=== PATIENT | male | born 1980 | race Caucasian/White ===

== ENCOUNTER → 2016-12-02 | Outpatient (CLI) | payer OTHER ==
[~2016-12-02] MED LIST: BACT800T5 PO; CYCL10TA PO; ENBR50IN2 SC; FERR325T3 PO; FOSA70TA PO; GABA600T PO; GLUCTAB6 PO; IBUP60TA PO; IRON65TA PO; MELO7.5T7 PO; MOBI15TA PO; NEUR300C PO; PRED10TA PO; TRAM50TA2 PO
--- NOTE | 2016-12-16 00:40 | ECWPNPC ---
PATIENT NAME: FLASH CASTELLANOS : 1980 GENDER: MALE VISIT DATE: 12/02/2016 DISCHARGE DATE: 12/02/16 1437 VISIT LOCKED DATE TIME: PHYSICIAN: NORIS SALINAS RESOURCE: NORIS SALINAS REASON FOR APPOINTMENT 1. CHRONIC PAIN HISTORY OF PRESENT ILLNESS HISTORY OF PRESENT ILLNESS: PAIN THE PATIENT DESCRIBES THE PAIN... FALL RISK SCREENING: SCREENING :NO FALLS IN THE PAST YEAR TODAY'S VISIT: NOTES: RATES PAIN 6/10. NOTES ALL JOINTSARE HURTING ESPECIALLY THE FEET, LEFT GREATER THAN RIGHT. HAS MUSCLE PAIN AND WEAKNESS LEFT BICEPS. HAD FALL OUT OF TUB - NOW WITH PAIN IN BACK/TAILBONE AND LEFT GROIN. DESCRIBES THE PAIN CONSTANT, BURNING, SHARP AND STABBING, SORE AND SHOOTING.. CURRENT MEDICATIONS TAKING PREDNISONE 10 MG TABLET 1 TABLET WITH FOOD OR MILK ORALLY TWICE A DAY TAKING ENBREL 50 MG/ML SOLUTION 1 ML SUBCUTANEOUS WEEKLY TAKING IRON (FERROUS GLUCONATE) 325 MG TABLET ORALLY NOT-TAKING CYCLOBENZAPRINE HCL 10 MG TABLET 1 TABLET ORALLY ONCE DAILY AT BEDTIME NOT-TAKING ETODOLAC 400 MG TABLET 1 TABLET ORALLY TWICE A DAY NOT-TAKING TRAMADOL HCL 50 MG TABLET 1-2 TABS ORALLY EVERY 6 HRS PRN PAIN MDD=4 NOT-TAKING MOBIC 15 MG TABLET 1 TABLET ORALLY ONCE A DAY NOT-TAKING GLUCOSAMINE CHONDROITIN ADV TABLET ORALLY DAILY NOT-TAKING GABAPENTIN 600 MG TABLET 1 TABLET ORALLY MEDICATION LIST REVIEWED AND RECONCILED WITH THE PATIENT PAST MEDICAL HISTORY RA PSORIATIC ARTHITIS ALLERGIES N.K.D.A. SURGICAL HISTORY RIGHT WRIST FUSION AND TENDON TRASFER 2016 LEFT HIP 2007 HOSPITALIZATION/MAJOR DIAGNOSTIC PROCEDURE CELLULITIS ABDOMEN 2014 REVIEW OF SYSTEMS REVIEWED BY: PROVIDER: NORIS SALINAS MAILING JOGGER . CONSTITUTIONAL: ANY CHANGE IN YOUR MEDICAL CONDITION? YES, ADL'S ARE DIMINISHING&NBSP;. CHILLS &NBSP;&NBSP; NO&NBSP;. FEVER &NBSP;&NBSP; NO&NBSP;. INFECTION: DO YOU HAVE NEW INFECTIONS? NO . DO YOU HAVE HISTORY OF MRSA? NO . MUSCULOSKELETAL: ANY NEW PATTERNS OF PAIN OR NUMBNESS? YES, INCREASED INTENSITY, LIMITED ROM . GASTROENTEROLOGY: ANY NEW CHANGE IN BOWEL CONTROL? NO . GENITOURINARY: ANY NEW CHANGE IN BLADDER CONTROL? NO . IS THERE A CHANCE YOU COULD BE ? NO . HEMATOLOGY/LYMPH: DO YOU TAKE ANY BLOOD THINNERS? (FOR EXAMPLE- COUMADIN, PLAVIX, AGGRENOX, PLATEL, PRADAXA, OR XARELTO) NO . WHEN WAS YOUR LAST DOSE? DATE: TIME: . NEUROLOGY: HAVE YOU FALLEN IN THE PAST 6 MONTHS? YES, PT STATES HE FELL IN THE TUB, PT DENIES MAJOR INJURIES REQIRING MEDICAL ATTENTION . ANY NEW EXTREMITY NUMBNESS OR WEAKNESS? NO . CARDIOLOGY: DO YOU HAVE A PACEMAKER OR DEFIBRILLATOR? NO . RESPIRATORY: HAVE YOU BEEN SICK IN THE PAST WEEK? NO . FEVER NO . FLU LIKE SYMPTOMS? NO . COUGH NO . INTEGUMENTARY: DO YOU HAVE ANY RASHES OR OPEN SORES? NO . ALLERGIC/IMMUNO: ARE YOU ALLERGIC TO SHELLFISH OR IV DYE? NO . ANY NEW ALLERGIES? NO . PSYCHIATRIC: DO YOU HAVE THOUGHTS OF HURTING YOURSELF OR SOMEONE ELSE? NO . ARE YOU ABUSED, NEGLECTED, OR IN AN UNSAFE ENVIRONMENT? NO . ENDOCRINOLOGY: ARE YOU DIABETIC? NO . OTHER: DO YOU NEED ANY PRESCRIPTIONS? NO . IF YES, PLEASE LIST: ____ . ANY NEW PROBLEMS WITH YOUR MEDICATIONS? NO . WHEN DID YOU LAST EAT? ____ . WHEN DID YOU LAST DRINK? ____ . WHAT DID YOU LAST DRINK? ____ . NAME OF PERSON DRIVING YOU HOME? ____ . DO YOU HAVE ANY OTHER QUESTIONS OR CONCERNS NO . SKIN: DO YOU HAVE ANY RASHES OR OPEN SORES? WAS NOT ABLE TO GET ENBREL FOR SEVERAL MONTHS - PSORIASIS FLARED BADLY AND JOINT PAIN FLARED. . VITAL SIGNS WT 193 LBS, HT 71 IN, BMI 26.92 INDEX, BP 138/91 MM HG, HR 74 /MIN, RR 16 /MIN, TEMP 98.6 F, OXYGEN SAT % 95, REVIEWED BY: EM. EXAMINATION GENERAL EXAMINATION: PSYCHALERT , ORIENTED X 3 , APPROPRIATE MOOD AND AFFECT . LUNGS:CLEAR TO AUSCULTATION BILATERALLY. HEART:HEART RATE REGULAR. MUSCULOSKELETAL:GENERALIZED JOINT PAIN WITH PALPATION AT WRISTS, ELBOWS, SHOULDERS AND KNEES. LEFT ELBOW WITH SEVERE CREPITUS. UNABLE TO EXTEND ARM GREATER THAN 120 DEGREES. BILATERAL EDEMA AND TENDERNESSS TO ANKLES. POSTURE STOOPED, GAIT ANTALGIC. LEFT BICEPS MUSCLE TENDER, SOFT, UNABLE TO CONTRACT.. ASSESSMENTS JOINT PAIN - M25.50 (PRIMARY) JOINT PAIN OF ANKLE AND FOOT - M25.579 RHEUMATOID ARTHRITIS - M06.9 TREATMENT JOINT PAIN REFILL TRAMADOL HCL TABLET, 50 MG, 1-2 TABS, ORALLY, EVERY 6 HRS PRN PAIN MDD=4, 30 DAY(S), 120, REFILLS 2 START NORCO TABLET, 5-325 MG, 1 TABLET NEEDED, ORALLY, DAILY PRN PAIN MDD=1, 30 DAY(S), 20, REFILLS 0 REFILL GABAPENTIN TABLET, 600 MG, 1 TABLET, ORALLY, BID, 30 DAY(S), 60 TABLET, REFILLS 2 NOTES: RESTART MEDS. CLINICAL NOTES: ISTOP REGISTRY REVIEWED AND DEMNOSTRATES COMPLLIANCE. REFERRAL TO:[facility] REASON:RUPTURED LEFT BICEPS TENDON, LOSS OF LEFT SHOULDER ROM PROCEDURE CODES FA211 ESTABILISHED PATIENT [facility] CHARGE DISPOSITION & COMMUNICATION FOLLOW UP 2 MONTHS (REASON: JOINT PAIN) ELECTRONICALLY SIGNED BY DONALD SWAIN ON 12/15/2016 AT 08:46 AM EDT DISCLAIMER : THIS IS A VISIT SUMMARY EXTRACTED FROM THE [employer] CHART. IT IS NOT A COPY OF THE [employer] PROGRESS NOTE. MADIHA
== END ==
LOC: M PAIN 13:15
PROVIDERS: ATTEND Nurse Practitioner Family
DX: M25.579 Pain in unspecified ankle and joints of unspecified foot (principal); M06.9 Rheumatoid arthritis, unspecified; G89.29 Other chronic pain; L40.9 Psoriasis, unspecified; Z79.899 Other long term (current) drug therapy

== ENCOUNTER 2017-03-23 06:40 | Emergency (ER) | payer OTHER ==
[~2017-03-23] VITALS: Ht 180.3 cm; Wt 86.4 kg
[2017-03-23] MEDS ORDERED: ENBR50IN2 SC (06:48)
[2017-03-23] MEDS ORDERED: TRAM50TA2 PO (06:48)
[2017-03-23] MEDS ORDERED: ONDANSETRON 4MG/2ML VIAL (J2405) IV ONE (07:30)
[2017-03-23 07:47] LABS: MEAN CORPUSCULAR HGB CONC 35.1 g/dl (32.0-36.5); MEAN CORPUSCULAR VOLUME 99.7 fl (80.0-96.0); PLATELET COUNT, AUTOMATED 400 10^3/uL (150-450); RED CELL DISTRIBUTION WIDTH 16.1 % (11.5-14.5)
[2017-03-23 07:48] LABS: POSITIVE DIFF POS FLAG; WHITE BLOOD COUNT 13.7 10^3/uL (4.0-10.0)
[2017-03-23 07:49] LABS: ADD MANUAL DIFFER YES; DIFF SLIDE NUMBER 121
[2017-03-23 08:15] LABS: ANION GAP 14 MEQ/L (8-16); BLOOD UREA NITROGEN 10 MG/DL (7-18); CALCIUM LEVEL 9.2 MG/DL (8.5-10.1); CARBON DIOXIDE LEVEL 23 MEQ/L (21-32); CHLORIDE LEVEL 101 MEQ/L (98-107); CREATININE FOR GFR 0.77 MG/DL (0.70-1.30); GLOMERULAR FILTRATION RATE > 60.0 (>60); GLUCOSE, FASTING 121 MG/DL (70-105); POTASSIUM SERUM 3.1 MEQ/L (3.5-5.1); SODIUM LEVEL 138 MEQ/L (136-145)
[2017-03-23 08:16] LABS: EOSINOPHILS 1 % (0-5)
[2017-03-23 08:17] LABS: ANISOCYTOSIS 1+
[2017-03-23] MEDS ORDERED: METOCLOPRAMIDE INJ 10MG/2ML VIAL (J2765) IV ONE (08:30)
[2017-03-23] MEDS ORDERED: KCL 10MEQ IN 100ML SWI (KRUN) 10 MEQ in APPROPRIATE DILUENT 1 EA IV ONE ×2 (08:30)
[2017-03-23] MEDS ORDERED: NS 1,000 ML IV ONE (10:45)
[2017-03-23] MEDS ORDERED: MORPHINE 4 MG/ML 1ML SYRINGE IV ONE (10:45)
[2017-03-23] MEDS ORDERED: ZOFR4TAB3 PO (12:35)
[2017-03-23 12:44] VITALS: BP 159/87
== END 2017-03-23 12:50 | disposition home or self-care (01) ==
LOC: M ED 06:40
DX: A08.4 Viral intestinal infection, unspecified (principal); E86.0 Dehydration; E87.6 Hypokalemia
CPT/HCPCS: 80048; 85025; 87507; 96365; 96366; 96375; 99284; J2405; J2765

== ENCOUNTER → 2017-05-26 | Outpatient (CLI) | payer OTHER | LOC: M PAIN 14:00 | DX: M06.9 Rheumatoid arthritis, unspecified (principal); M25.579 Pain in unspecified ankle and joints of unspecified foot; L40.52 Psoriatic arthritis mutilans; Z79.899 Other long term (current) drug therapy | CPT/HCPCS: G0463 ==

== ENCOUNTER 2017-12-16 12:02 | Inpatient (IN) | payer OTHER ==
[2017-12-16] MEDS: ONDANSETRON 4MG/2ML VIAL (J2405) IV (12:54)
[2017-12-16] MEDS: NS 1,000 ML IV ×2 (12:54→15:08)
[2017-12-16 13:05] LABS: BASO # 0.1 10^3/uL (0.0-0.2); BASO % 0.2 % (0.0-1.0); EOS # 0.2 10^3/uL (0.0-0.50); EOS % 1.1 % (0.0-3.0); HEMATOCRIT 29.4 % (42.0-52.0); HEMOGLOBIN 9.9 g/dl (13.5-17.5); IMMATURE GRANULOCYTE % 0.7 % (0-3.0); LYMPH # 4.1 10^3/uL (1.5-4.5); LYMPH % 19.6 % (24.0-44.0); MEAN CORPUSCULAR HEMOGLOBIN 34.6 pg (27.0-33.0); MEAN CORPUSCULAR HGB CONC 33.7 g/dl (32.0-36.5); MEAN CORPUSCULAR VOLUME 102.8 fl (80.0-96.0); MONO # 1.6 10^3/uL (0.0-0.8); MONO % 7.5 % (0.0-5.0); NEUTROPHILS # 14.7 10^3/uL (1.8-7.7); NEUTROPHILS % 70.9 % (36.0-66.0); PLATELET COUNT, AUTOMATED 417 10^3/uL (150-450); RED BLOOD COUNT 2.86 10^6/uL (4.30-6.10); RED CELL DISTRIBUTION WIDTH 16.6 % (11.5-14.5); WHITE BLOOD COUNT 20.8 10^3/uL (4.0-10.0)
[2017-12-16 13:30] LABS: ANION GAP 9 MEQ/L (8-16); BLOOD UREA NITROGEN 16 MG/DL (7-18); CALCIUM LEVEL 9.2 MG/DL (8.5-10.1); CARBON DIOXIDE LEVEL 25 MEQ/L (21-32); CHLORIDE LEVEL 102 MEQ/L (98-107); CREATININE FOR GFR 0.74 MG/DL (0.70-1.30); GLOMERULAR FILTRATION RATE > 60.0 (>60); GLUCOSE, FASTING 116 MG/DL (70-100); POTASSIUM SERUM 3.6 MEQ/L (3.5-5.1); SODIUM LEVEL 136 MEQ/L (136-145)
[2017-12-16 13:34] LABS: LACTIC ACID SEPSIS PROTOCOL 1.5 MMOL/L (0.4-2.0)
[2017-12-16 13:37] LABS: INFLUENZA A AMPLIFICATION NEGATIVE (NEGATIVE); INFLUENZA B AMPLIFICATION NEGATIVE (NEGATIVE)
[2017-12-16] MEDS: ACETAMINOPHEN 325 MG TAB PO (14:16)
[2017-12-16] MEDS: cefTRIAXone SOD 1 GM in D5W MINI-BAG PLUS 50 ML IV (14:16)
[2017-12-16] MEDS: AZITHROMYCIN INJ 500 MG, VIAL MATE ADAPTER 1 EACH in D5W 250 ML IV (15:03)
[2017-12-16] MEDS ORDERED: NS 1,000 ML IV (16:00)
[2017-12-16] MEDS ORDERED: BENZONATATE 100 MG CAP PO (16:00)
[2017-12-16] MEDS: PANTOPRAZOLE 40MG INJ (PROTONIX) (C9113) IV (19:09)
[2017-12-16] MEDS: ACETAMINOPHEN TAB 650MG DOSE (2X325MG) PO (19:10)
[2017-12-16] MEDS: KCL 20MEQ in NS 1000ML 1,000 ML IV (19:10)
[2017-12-16] MEDS: HYDROCORTISONE 100 MG/2 ML VIAL (J1720) IV (19:10)
[2017-12-16] MEDS: SENOKOT S TAB PO (21:38)
[2017-12-16] MEDS: guaiFENesin ER 600 MG TAB PO (21:38)
[2017-12-17] MEDS: CEFEPIME HCL 2 GM in D5W MINI-BAG PLUS 50 ML IV ×2 (02:35→16:30)
[2017-12-17] MEDS: KCL 20MEQ in NS 1000ML 1,000 ML IV ×3 (04:05→22:31)
[2017-12-17] MEDS: HYDROCORTISONE 100 MG/2 ML VIAL (J1720) IV ×2 (05:48→18:24)
[2017-12-17 06:11] LABS: BASO # 0.1 10^3/uL (0.0-0.2); BASO % 0.2 % (0.0-1.0); EOS # 0.1 10^3/uL (0.0-0.50); EOS % 0.4 % (0.0-3.0); HEMATOCRIT 26.5 % (42.0-52.0); HEMOGLOBIN 8.7 g/dl (13.5-17.5); IMMATURE GRANULOCYTE % 0.7 % (0-3.0); LYMPH # 4.3 10^3/uL (1.5-4.5); LYMPH % 21.2 % (24.0-44.0); MEAN CORPUSCULAR HEMOGLOBIN 33.9 pg (27.0-33.0); MEAN CORPUSCULAR HGB CONC 32.8 g/dl (32.0-36.5); MEAN CORPUSCULAR VOLUME 103.1 fl (80.0-96.0); MONO # 1.5 10^3/uL (0.0-0.8); MONO % 7.3 % (0.0-5.0); NEUTROPHILS # 14.2 10^3/uL (1.8-7.7); NEUTROPHILS % 70.2 % (36.0-66.0); PLATELET COUNT, AUTOMATED 365 10^3/uL (150-450); RED BLOOD COUNT 2.57 10^6/uL (4.30-6.10); RED CELL DISTRIBUTION WIDTH 16.6 % (11.5-14.5); WHITE BLOOD COUNT 20.3 10^3/uL (4.0-10.0)
[2017-12-17 06:38] LABS: ALBUMIN/GLOBULIN RATIO 0.63 (1.00-1.93); ALKALINE PHOSPHATASE 127 U/L (45-117); ALT/SGPT 59 U/L (12-78); ANION GAP 8 MEQ/L (8-16); AST/SGOT 31 U/L (7-37); BILIRUBIN,TOTAL 0.4 MG/DL (0.2-1.0); BLOOD UREA NITROGEN 9 MG/DL (7-18); CALCIUM LEVEL 8.7 MG/DL (8.5-10.1); CARBON DIOXIDE LEVEL 24 MEQ/L (21-32); CHLORIDE LEVEL 106 MEQ/L (98-107); CREATININE FOR GFR 0.61 MG/DL (0.70-1.30); GLOMERULAR FILTRATION RATE > 60.0 (>60); GLUCOSE, FASTING 97 MG/DL (70-100); MAGNESIUM LEVEL 2.1 MG/DL (1.8-2.4); POTASSIUM SERUM 3.8 MEQ/L (3.5-5.1); SODIUM LEVEL 138 MEQ/L (136-145); TOTAL PROTEIN 7.8 GM/DL (6.4-8.2)
[2017-12-17] MEDS: SENOKOT S TAB PO ×2 (07:59→22:30)
[2017-12-17] MEDS: PANTOPRAZOLE 40MG INJ (PROTONIX) (C9113) IV (08:00)
[2017-12-17] MEDS: guaiFENesin ER 600 MG TAB PO ×2 (08:00→22:30)
[2017-12-17] MEDS: ENOXAPARIN 40 MG/0.4 ML SYRINGE (J1650) SC (08:00)
[2017-12-17] MEDS: INFLUENZA QUADRIVALENT PF VACCINE 0.5ML SYRINGE (90686) IM (08:02)
[2017-12-17] MEDS: AZITHROMYCIN INJ 500 MG, VIAL MATE ADAPTER 1 EACH in D5W 250 ML IV (15:04)
[2017-12-17] MEDS: ONDANSETRON 4MG/2ML VIAL (J2405) IV (19:08)
[2017-12-18] MEDS: CEFEPIME HCL 2 GM in D5W MINI-BAG PLUS 50 ML IV (02:36)
[2017-12-18 05:57] LABS: BASO % 0.3 % (0.0-1.0); EOS # 0.2 10^3/uL (0.0-0.50); EOS % 1.6 % (0.0-3.0); HEMATOCRIT 24.7 % (42.0-52.0); HEMOGLOBIN 8.2 g/dl (13.5-17.5); IMMATURE GRANULOCYTE % 0.7 % (0-3.0); LYMPH # 2.6 10^3/uL (1.5-4.5); LYMPH % 23.7 % (24.0-44.0); MEAN CORPUSCULAR HEMOGLOBIN 34.9 pg (27.0-33.0); MEAN CORPUSCULAR HGB CONC 33.2 g/dl (32.0-36.5); MEAN CORPUSCULAR VOLUME 105.1 fl (80.0-96.0); MONO # 0.8 10^3/uL (0.0-0.8); MONO % 7.7 % (0.0-5.0); NEUTROPHILS # 7.2 10^3/uL (1.8-7.7); PLATELET COUNT, AUTOMATED 332 10^3/uL (150-450); RED BLOOD COUNT 2.35 10^6/uL (4.30-6.10); RED CELL DISTRIBUTION WIDTH 16.5 % (11.5-14.5); WHITE BLOOD COUNT 10.9 10^3/uL (4.0-10.0)
[2017-12-18 06:31] LABS: ALBUMIN 2.7 GM/DL (3.2-5.2); ALBUMIN/GLOBULIN RATIO 0.63 (1.00-1.93); ALKALINE PHOSPHATASE 110 U/L (45-117); ALT/SGPT 50 U/L (12-78); ANION GAP 7 MEQ/L (8-16); AST/SGOT 23 U/L (7-37); BILIRUBIN,TOTAL 0.3 MG/DL (0.2-1.0); BLOOD UREA NITROGEN 9 MG/DL (7-18); CALCIUM LEVEL 8.4 MG/DL (8.5-10.1); CARBON DIOXIDE LEVEL 24 MEQ/L (21-32); CHLORIDE LEVEL 107 MEQ/L (98-107); CREATININE FOR GFR 0.59 MG/DL (0.70-1.30); GLOMERULAR FILTRATION RATE > 60.0 (>60); GLUCOSE, FASTING 83 MG/DL (70-100); POTASSIUM SERUM 3.8 MEQ/L (3.5-5.1); SODIUM LEVEL 138 MEQ/L (136-145)
[2017-12-18] MEDS: HYDROCORTISONE 100 MG/2 ML VIAL (J1720) IV (07:07)
[2017-12-18] MEDS: KCL 20MEQ in NS 1000ML 1,000 ML IV (07:10)
[2017-12-18] MEDS: SENOKOT S TAB PO ×2 (07:52→21:05)
[2017-12-18] MEDS: PANTOPRAZOLE 40MG INJ (PROTONIX) (C9113) IV (07:52)
[2017-12-18] MEDS: ENOXAPARIN 40 MG/0.4 ML SYRINGE (J1650) SC (07:52)
[2017-12-18] MEDS: guaiFENesin ER 600 MG TAB PO ×2 (07:52→21:04)
[2017-12-18] MEDS: AZITHROMYCIN 250 MG TAB PO (15:17)
[2017-12-18] MEDS: CEFDINIR 300 MG CAP (OMNICEF) PO ×2 (15:17→21:04)
[2017-12-18] MEDS: predniSONE 10 MG TAB PO (18:12)
[2017-12-19] MEDS: predniSONE 10 MG TAB PO (05:32)
[2017-12-19 06:07] LABS: BASO % 0.3 % (0.0-1.0); EOS # 0.3 10^3/uL (0.0-0.50); EOS % 2.9 % (0.0-3.0); HEMATOCRIT 26.5 % (42.0-52.0); HEMOGLOBIN 8.8 g/dl (13.5-17.5); IMMATURE GRANULOCYTE % 0.9 % (0-3.0); LYMPH # 2.9 10^3/uL (1.5-4.5); LYMPH % 27.3 % (24.0-44.0); MEAN CORPUSCULAR HEMOGLOBIN 34.1 pg (27.0-33.0); MEAN CORPUSCULAR HGB CONC 33.2 g/dl (32.0-36.5); MEAN CORPUSCULAR VOLUME 102.7 fl (80.0-96.0); MONO % 9.2 % (0.0-5.0); NEUTROPHILS # 6.2 10^3/uL (1.8-7.7); NEUTROPHILS % 59.4 % (36.0-66.0); PLATELET COUNT, AUTOMATED 393 10^3/uL (150-450); RED BLOOD COUNT 2.58 10^6/uL (4.30-6.10); RED CELL DISTRIBUTION WIDTH 16.3 % (11.5-14.5); WHITE BLOOD COUNT 10.5 10^3/uL (4.0-10.0)
[2017-12-19 06:28] LABS: ALBUMIN 3.1 GM/DL (3.2-5.2); ALBUMIN/GLOBULIN RATIO 0.84 (1.00-1.93); ALKALINE PHOSPHATASE 115 U/L (45-117); ALT/SGPT 48 U/L (12-78); ANION GAP 9 MEQ/L (8-16); AST/SGOT 19 U/L (7-37); BILIRUBIN,TOTAL 0.3 MG/DL (0.2-1.0); BLOOD UREA NITROGEN 9 MG/DL (7-18); CALCIUM LEVEL 8.7 MG/DL (8.5-10.1); CARBON DIOXIDE LEVEL 26 MEQ/L (21-32); CHLORIDE LEVEL 104 MEQ/L (98-107); CREATININE FOR GFR 0.53 MG/DL (0.70-1.30); GLOMERULAR FILTRATION RATE > 60.0 (>60); GLUCOSE, FASTING 82 MG/DL (70-100); MAGNESIUM LEVEL 2.2 MG/DL (1.8-2.4); POTASSIUM SERUM 4.1 MEQ/L (3.5-5.1); SODIUM LEVEL 139 MEQ/L (136-145); TOTAL PROTEIN 6.8 GM/DL (6.4-8.2)
[2017-12-19] MEDS: PANTOPRAZOLE 40MG INJ (PROTONIX) (C9113) IV (08:24)
[2017-12-19] MEDS: guaiFENesin ER 600 MG TAB PO (08:24)
[2017-12-19] MEDS: CEFDINIR 300 MG CAP (OMNICEF) PO (08:24)
[2017-12-19] MEDS: SENOKOT S TAB PO (08:24)
[2017-12-19] MEDS: AZITHROMYCIN 250 MG TAB PO (08:24)
[2017-12-19] MEDS: ENOXAPARIN 40 MG/0.4 ML SYRINGE (J1650) SC (08:25)
== END 2017-12-19 09:51 | disposition home or self-care (01) | DRG 139 ==
LOC: M ED 12:02 → M ED INP 14:59 → M PCU 18:11
DX: J18.9 Pneumonia, unspecified organism (principal); M06.9 Rheumatoid arthritis, unspecified; R11.2 Nausea with vomiting, unspecified; Z96.649 Presence of unspecified artificial hip joint; Z79.52 Long term (current) use of systemic steroids

== ENCOUNTER 2017-12-21 22:48 | Emergency (ER) | payer OTHER ==
[2017-12-21] MEDS: NS 1,000 ML IV (23:30)
[2017-12-21] MEDS: ONDANSETRON 4MG/2ML VIAL (J2405) IV (23:30)
[2017-12-22 00:23] LABS: BASO # 0.1 10^3/uL (0.0-0.2); BASO % 0.5 % (0.0-1.0); EOS # 0.1 10^3/uL (0.0-0.50); EOS % 1.1 % (0.0-3.0); HEMOGLOBIN 9.3 g/dl (13.5-17.5); IMMATURE GRANULOCYTE % 1.9 % (0-3.0); LYMPH # 3.8 10^3/uL (1.5-4.5); LYMPH % 33.5 % (24.0-44.0); MEAN CORPUSCULAR HEMOGLOBIN 33.2 pg (27.0-33.0); MEAN CORPUSCULAR HGB CONC 33.2 g/dl (32.0-36.5); MONO % 8.9 % (0.0-5.0); NEUTROPHILS # 6.2 10^3/uL (1.8-7.7); NEUTROPHILS % 54.1 % (36.0-66.0); PLATELET COUNT, AUTOMATED 510 10^3/uL (150-450); RED CELL DISTRIBUTION WIDTH 15.7 % (11.5-14.5); WHITE BLOOD COUNT 11.4 10^3/uL (4.0-10.0)
[2017-12-22] MEDS: METOCLOPRAMIDE INJ 10MG/2ML VIAL (J2765) IV (00:26)
[2017-12-22 00:31] LABS: ALBUMIN 3.5 GM/DL (3.2-5.2); ALKALINE PHOSPHATASE 120 U/L (45-117); ALT/SGPT 49 U/L (12-78); ANION GAP 12 MEQ/L (8-16); AST/SGOT 32 U/L (7-37); BILIRUBIN,DIRECT 0.1 MG/DL (0.0-0.2); BILIRUBIN,TOTAL 0.6 MG/DL (0.2-1.0); BLOOD UREA NITROGEN 14 MG/DL (7-18); CALCIUM LEVEL 8.9 MG/DL (8.5-10.1); CARBON DIOXIDE LEVEL 23 MEQ/L (21-32); CHLORIDE LEVEL 103 MEQ/L (98-107); CREATININE FOR GFR 0.65 MG/DL (0.70-1.30); GLOMERULAR FILTRATION RATE > 60.0 (>60); GLUCOSE, FASTING 109 MG/DL (70-100); LIPASE 179 U/L (73-393); POTASSIUM SERUM 3.3 MEQ/L (3.5-5.1); SODIUM LEVEL 138 MEQ/L (136-145); TOTAL PROTEIN 7.9 GM/DL (6.4-8.2)
[2017-12-22] MEDS ORDERED: METOCLOPRAMIDE 10 MG TAB As Ordered (01:40)
[2017-12-22] MEDS: METOCLOPRAMIDE 10 MG TAB PO (01:44)
== END 2017-12-22 02:21 | disposition home or self-care (01) ==
LOC: M ED 22:48
DX: R11.2 Nausea with vomiting, unspecified (principal); K21.9 Gastro-esophageal reflux disease without esophagitis
CPT/HCPCS: J2405

== ENCOUNTER → 2018-01-26 | Outpatient (CLI) | payer OTHER | LOC: M PT 13:01 | DX: Z74.09 Other reduced mobility (principal); Z96.642 Presence of left artificial hip joint; M06.9 Rheumatoid arthritis, unspecified; L40.50 Arthropathic psoriasis, unspecified; R53.82 Chronic fatigue, unspecified | CPT/HCPCS: 97162 ==

== ENCOUNTER → 2018-04-08 | Outpatient (REF) | payer OTHER ==
[~2018-04-08] MED LIST changes: +AZIT-12 PO; +CEFD300CAP PO; -GABA600T PO; +GABA600T4 PO; +PRED10TA2 PO; +REGL10TA6 PO; +ZOFR4TAB14 PO
[2018-04-08 18:22] LABS: ALBUMIN 3.8 GM/DL (3.2-5.2); ALT/SGPT 24 U/L (12-78); BILIRUBIN,TOTAL 0.3 MG/DL (0.2-1.0); BLOOD UREA NITROGEN 18 MG/DL (7-18); C REACTIVE PROTEIN QUANTITATIV < 0.30 MG/DL (0.00-0.30); CALCIUM LEVEL 8.4 MG/DL (8.5-10.1); CARBON DIOXIDE LEVEL 25 MEQ/L (21-32); CHLORIDE LEVEL 105 MEQ/L (98-107); CHOLESTEROL LEVEL 136 MG/DL (<200); CHOLESTEROL RISK RATIO 3.487 (<5); CREATININE FOR GFR 0.62 MG/DL (0.70-1.30); GLOMERULAR FILTRATION RATE > 60.0 (>60); GLUCOSE, FASTING 114 MG/DL (70-100); HDL CHOLESTEROL 39 MG/DL (>40); LDL CHOLESTEROL 44 MG/DL (<100); NON-HDL-C 97 MG/DL; POTASSIUM SERUM 3.4 MEQ/L (3.5-5.1); SODIUM LEVEL 140 MEQ/L (136-145); THYROID STIMULATING HORMONE 0.659 uIU/ML (0.358-3.740); TOTAL 25(OH) VITAMIN D 24.4 NG/ML (30.0-100.0); TRIGLYCERIDES LEVEL 266 MG/DL (<150)
[2018-04-08 18:29] LABS: HEMATOCRIT 28.2 % (42.0-52.0); HEMOGLOBIN 9.3 g/dl (13.5-17.5); MEAN CORPUSCULAR HEMOGLOBIN 35.1 pg (27.0-33.0); MEAN CORPUSCULAR VOLUME 106.4 fl (80.0-96.0); PLATELET COUNT, AUTOMATED 427 10^3/uL (150-450); RED BLOOD COUNT 2.65 10^6/uL (4.30-6.10)
[2018-04-08 18:37] LABS: WHITE BLOOD COUNT 10.6 10^3/uL (4.0-10.0)
[2018-04-08 18:53] LABS: HEMOGLOBIN A1c 5.1 %
[2018-04-08 19:02] LABS: ERYTHROCYTE SEDIMENTATION RATE 37 mm/hr (0-15)
[2018-04-08 19:39] LABS: ATYPICAL LYMPH 15 % (0-5); LYMPHOCYTES 39 % (16-52); MONOCYTES 14 % (0-8); NEUTROPHILS 32 % (35-75); PLATELET ESTIMATE INCREASED (NORMAL)
== END ==
LOC: M LAB REF 16:24
PROVIDERS: ATTEND Nurse Practitioner Adult Health
DX: Z13.9 Encounter for screening, unspecified (principal)

== ENCOUNTER → 2018-04-19 | Outpatient (REF) | payer OTHER ==
[2018-04-19 18:05] LABS: BASO % 0.3 % (0.0-1.0); EOS % 0.1 % (0.0-3.0); HEMATOCRIT 29.6 % (42.0-52.0); HEMOGLOBIN 9.8 g/dl (13.5-17.5); LYMPH # 2.4 10^3/uL (1.5-4.5); LYMPH % 30.2 % (24.0-44.0); MEAN CORPUSCULAR HGB CONC 33.1 g/dl (32.0-36.5); MEAN CORPUSCULAR VOLUME 108.8 fl (80.0-96.0); MONO # 0.7 10^3/uL (0.0-0.8); MONO % 9.2 % (0.0-5.0); NEUTROPHILS # 4.7 10^3/uL (1.8-7.7); NEUTROPHILS % 59.2 % (36.0-66.0); PLATELET COUNT, AUTOMATED 418 10^3/uL (150-450); RED BLOOD COUNT 2.72 10^6/uL (4.30-6.10)
[2018-04-20 17:38] LABS: FOLATE 14.5 NG/ML
== END ==
LOC: M LAB REF 17:37
PROVIDERS: ATTEND Nurse Practitioner Adult Health
DX: Z13.9 Encounter for screening, unspecified (principal)

== ENCOUNTER 2018-07-11 19:41 | Emergency (ER) | payer MEDICARE, MEDICAID ==
[~2018-07-11] VITALS: Ht 180.3 cm; Wt 88.6 kg
[~2018-07-11 19:41] MED LIST changes: +IBUP600T42 PO; -IBUP60TA PO; +PRED-351 PO; -PRED10TA PO
[2018-07-11] MEDS ORDERED: ALENDRONATE (19:49)
[2018-07-11] MEDS ORDERED: Gabapentin (19:49)
[2018-07-11] MEDS ORDERED: IBUP-1022 PO (19:49)
[2018-07-11 21:47] VITALS: BP 130/76
[2018-07-12] MEDS ORDERED: ADACEL/BOOSTRIX VACCINE (DIPHTH/PERTUSS/ACELL/TETANUS)0.5ML SYR (90715) IM ONE (00:15)
[2018-07-12] MEDS ORDERED: NEOSPORIN TOP OINT 15GM TOP SCH (00:57)
[2018-07-12] MEDS ORDERED: BACT2CRE TOP (01:00)
[2018-07-12] MEDS ORDERED: DOXY100C PO (01:01)
== END 2018-07-12 01:23 | disposition home or self-care (01) ==
LOC: M ED 19:41
DX: S81.801A Unspecified open wound, right lower leg, initial encounter (principal); W26.8XXA Contact with other sharp object(s), not elsewhere classified, initial encounter; Y92.098 Other place in other non-institutional residence as the place of occurrence of the external cause; I87.8 Other specified disorders of veins; M06.9 Rheumatoid arthritis, unspecified; Z79.899 Other long term (current) drug therapy; Z79.52 Long term (current) use of systemic steroids; Z79.1 Long term (current) use of non-steroidal anti-inflammatories (NSAID)

== ENCOUNTER → 2018-07-18 | Outpatient (REF) | payer MEDICARE, MEDICAID ==
[~2018-07-18] MED LIST changes: +ALENDRONATE; +BACT2CRE TOP; +DOXY100C PO; +Gabapentin; +IBUP-1022 PO
== END ==
LOC: M LAB REF 16:45
PROVIDERS: ATTEND Family Medicine
DX: R22.41 Localized swelling, mass and lump, right lower limb (principal); S27.331D Laceration of lung, unilateral, subsequent encounter; L03.90 Cellulitis, unspecified

== ENCOUNTER → 2018-07-19 | Outpatient (CLI) | payer MEDICARE, MEDICAID ==
--- NOTE | 2018-07-19 13:57 | REP ---
Right lower extremity deep vein duplex ultrasound: The deep veins demonstrate normal compression, normal Doppler color flow and normal Doppler waveforms with respiration and augmentation from the popliteal vein to the common femoral vein. Impression: There is no deep vein thrombus. There is gautam edema. In the calf area, there is a zone of localized swelling. Electronically Signed by Ag Michaels MD 07/19/2018 01:48 P
== END ==
LOC: M RAD 12:02
PROVIDERS: ATTEND Family Medicine
DX: R22.41 Localized swelling, mass and lump, right lower limb (principal)

== ENCOUNTER 2018-08-29 16:57 | Inpatient (IN) | payer MEDICARE, MEDICAID ==
[~2018-08-29] VITALS: Ht 180.3 cm; Wt 84.6 kg
[2018-08-29] MEDS ORDERED: GABA600T4 PO (17:04)
[2018-08-29 17:33] LABS: EOS % 0.3 % (0.0-3.0); HEMATOCRIT 10.8 % (42.0-52.0); LYMPH # 2.8 10^3/uL (1.5-4.5); MEAN CORPUSCULAR HEMOGLOBIN 38.9 pg (27.0-33.0); MEAN CORPUSCULAR HGB CONC 32.4 g/dl (32.0-36.5); MONO # 0.9 10^3/uL (0.0-0.8); MONO % 14.6 % (0.0-5.0); NEUTROPHILS # 2.3 10^3/uL (1.8-7.7); NEUTROPHILS % 37.6 % (36.0-66.0); PLATELET COUNT, AUTOMATED 320 10^3/uL (150-450)
[2018-08-29 17:59] LABS: HEMOGLOBIN 3.5 g/dl (13.5-17.5)
[2018-08-29 18:12] LABS: D-DIMER QUANT 1057.17 ng/ml (<500)
[2018-08-29 18:13] LABS: BLOOD UREA NITROGEN 13 MG/DL (7-18); CALCIUM LEVEL 8.3 MG/DL (8.5-10.1); CARBON DIOXIDE LEVEL 25 MEQ/L (21-32); CHLORIDE LEVEL 109 MEQ/L (98-107); CPK CREATINE PHOSPHOKINASE 55 U/L (39-308); CREATININE FOR GFR 0.63 MG/DL (0.70-1.30); GLOMERULAR FILTRATION RATE > 60.0 (>60); GLUCOSE, FASTING 93 MG/DL (70-100); MB/CK RELATIVE INDEX 1.82 (< OR =4); POTASSIUM SERUM 3.7 MEQ/L (3.5-5.1); SODIUM LEVEL 141 MEQ/L (136-145); TROPONIN I < 0.02 NG/ML (< 0.10)
[2018-08-29 18:32] LABS: INR 1.11; PROTHROMBIN TIME 14.5 SECONDS (12.1-14.4)
[2018-08-29] MEDS ORDERED: ALEN70TA74 PO (18:48)
--- NOTE | 2018-08-29 18:49 | REP ---
Clinical: Shortness of breath . Comparison: 12/16/2017 . Technique: PA and lateral. Findings: The mediastinum and cardiac silhouette are normal. The lung howard are clear and without acute consolidation, effusion, or pneumothorax. The skeletal structures are intact and normal. Impression: 1. No acute cardiopulmonary process. Electronically Signed by Toby Maurer MD 08/29/2018 06:40 P
[2018-08-29] MEDS ORDERED: FERR325T3 PO (18:50)
[2018-08-29 18:59] LABS: ANISOCYTOSIS 1+; OVALOCYTES 1+; PLATELET ESTIMATE NORMAL (NORMAL); POIKILOCYTOSIS 1+; POLYCHROMASIA 1+
[2018-08-29] MEDS ORDERED: FUROSEMIDE 20 MG/2 ML VIAL (J1940) IV ONE (20:15)
--- NOTE | 2018-08-29 20:30 | HPEPDOC ---
General Date of Admission 08/29/18 Date of Service: August 29, 2018 Chief Complaint The patient is a 38-year-old male admitted with a reason for visit of Shortness Of Breath. Source: Patient, RN/MD, Old records Exam Limitations: No limitations Associated Symptoms: Loss of appetite, Shortness of breath, Weakness History of Present Illness 38 year old male with PMH of Rheumatoid arthritis on chronic prednisone and Etanercept, has chronic leg ulcer for about [address] Monsalve presented today with increasing fatigue and shortness of breath for 1 month which really got bad in the last week to the extent that he would become exhausted after going to the bathroom and coming back. He did not have any cough or wheezing, he did not have any palpitation or any PND. He has been cutting down on his work fo the past month as he has been feeling tired and weak and easily winded with usual activities. Yesterday he went fishing with friends but could not even get out of the truck to go down to the water. He also complains of poor appetie for months. In the ED he was found to have a Hb of 3.5, His guaiac was negative. He is being admitted for symptomatic anemia. Home Medications Scheduled Alendronate Sodium (Alendronate Sodium) 70 Mg Tablet, 70 MG PO 1XWK, (Reported) TUESDAYS Etanercept (Enbrel) 50 Mg/Ml Inj, 50 MG SC 1XWK, (Reported) TUESDAYS Ferrous Sulfate (Ferrous Sulfate) 325 Mg Tablet.dr, 325 MG PO DAILY, (Reported) Gabapentin (Gabapentin) 600 Mg Tablet, 600 MG PO BID, (Reported) Prednisone (Prednisone) 10 Mg Tab, 10 MG PO BID, (Reported) Scheduled PRN Ibuprofen (Ibuprofen) 600 Mg Tablet, 600 MG PO TID PRN for PAIN, (Reported) Allergies Coded Allergies: No Known Allergies (Unverified , 07/11/18) Past Medical History Medical History Rheumatoid arthritis, chronic right leg ulcer Surgical History Left total hip replacement, as well as a tendon repair in his hand. Family History Significant Family History: Hypertension (father), Other (Father stroke, Mother celiac disease) Social History * Smoker: Denies Alcohol: Denies Drugs: marijuana (to help with pain) A-FIB/CHADSVASC A-FIB History Current/History of A-Fib/PAF?: No Review of Systems Constitutional: Reports: Malaise, Weakness, Fatigue; Denies: Chills, Fever, Night Sweats Eyes: Denies: Pain, Vision change ENT: Denies: Head Aches, Ear Pain, Dysphagia Skin: Denies: Rash, Lesions, Breakdown Pulmonary: Reports: Dyspnea; Denies: Cough, Pleuritic Chest Pain Cardiovascular: Denies: Chest Pain, Palpitations, Orthopnea, Paroxysmal Noc. Dyspnea, Edema Gastrointestinal: Denies: Nausea, Vomiting, Abdominal Pain, Diarrhea Genitourinary: Denies: Dysuria, Frequency, Incontinence, Retention Hematologic: Denies: Bruising, Bleeding Excessively Musculoskeletal: Reports: Joint Pain, Muscle Pain Neurological: Reports: Weakness Physical Examination General Exam: Positive: Alert, Cooperative, No Acute Distress Eye Exam: Positive: PERRLA, Conjunctiva & lids normal, EOMI; Negative: Sclera icteric ENT Exam: Positive: Atraumatic, Mucous membr. moist/pink, Pharynx Normal Neck Exam: Positive: Supple; Negative: JVD, thyromegaly Chest Exam: Positive: Clear to auscultation, Normal air movement Heart Exam: Positive: Rate Normal, Regular Rhythm, Normal S1, Normal S2; Negative: Murmurs, Rubs Telemetry: Positive: No significant arrhythmia Abdomen Exam: Positive: Normal bowel sounds, Soft; Negative: Tenderness, Hepatospenomegaly Extremity Exam: Positive: Normal pulses; Negative: Clubbing, Cyanosis, Edema Skin Exam: Positive: Lesion (5cmx 5cm chronic ulcer with clean base on the lateral aspect of right leg middle part with granulation tissue at the bottom. No necrosis or inflammation.) Neuro Exam: Positive: Normal Gait, Normal Speech, Cranial Nerves 3-12 NL, Reflexes 2+ Vital Signs Vital Signs Date Time Temp Pulse Resp B/P (MAP) Pulse Ox O2 Delivery O2 Flow Rate FiO2 08/29/18 19:31 129/65 (86) 08/29/18 19:28 98.9 08/29/18 19:27 97 18 99 Room Air Laboratory Data Labs 24H Laboratory Tests 2 08/29/18 17:23: Immature Granulocyte % (Auto) 1.5, White Blood Count 6.0, Red Blood Count 0.90L, Hemoglobin 3.5*L, Hematocrit 10.8L, Mean Corpuscular Volume 120.0H, Mean Corpuscular Hemoglobin 38.9H, Mean Corpuscular Hemoglobin Concent 32.4, Red Cell Distribution Width 20.7H, Platelet Count 320, Neutrophils (%) (Auto) 37.6, Lymphocytes (%) (Auto) 46.0H, Monocytes (%) (Auto) 14.6H, Eosinophils (%) (Auto) 0.3, Basophils (%) (Auto) 0.0, Neutrophils # (Auto) 2.3, Lymphocytes # (Auto) 2.8, Monocytes # (Auto) 0.9H, Eosinophils # (Auto) 0.0, Basophils # (Auto) 0.0, Nucleated Red Blood Cells % (auto) 0.0, Platelet Estimate NORMAL, Polychromasia 1+, Poikilocytosis 1+, Anisocytosis 1+, Macrocytosis 4+, Ovalocytes 1+, Anion Gap 7L, Glomerular Filtration Rate > 60.0, Blood Urea Nitrogen 13, Creatinine 0.63L, Sodium Level 141, Potassium Level 3.7, Chloride Level 109H, Carbon Dioxide Level 25, Calcium Level 8.3L, Total Creatine Kinase 55, Creatine Kinase MB 1.0, Creatine Kinase MB Relative Index 1.82, Troponin I < 0.02 08/29/18 17:42: Prothrombin Time 14.5H, Prothromb Time International Ratio 1.11, D-Dimer, Quantitative 1057.17H CBC/BMP Laboratory Tests 08/29/18 17:23 Red Blood Count 0.90 L, Mean Corpuscular Volume 120.0 H, Mean Corpuscular Hemoglobin 38.9 H, Mean Corpuscular Hemoglobin Concent 32.4, Red Cell Distribution Width 20.7 H, Neutrophils (%) (Auto) 37.6, Lymphocytes (%) (Auto) 46.0 H, Monocytes (%) (Auto) 14.6 H, Eosinophils (%) (Auto) 0.3, Basophils (%) (Auto) 0.0, Neutrophils # (Auto) 2.3, Lymphocytes # (Auto) 2.8, Monocytes # (Auto) 0.9 H, Eosinophils # (Auto) 0.0, Basophils # (Auto) 0.0, Calcium Level 8.3 L, Total Creatine Kinase 55 Assessment/Plan 38 year old male with PMH of Rheumatoid arthritis on chronic prednisone and Etanercept, has chronic leg ulcer for about [address] Stillerman presented today with increasing fatigue and shortness of breath for 1 month which really got bad in the last week to the extent that he would become exhausted after going to the bathroom and coming back. He did not have any cough or wheezing, he did not have any palpitation or any PND. He has been cutting down on his work fo the past month as he has been feeling tired and weak and easily winded with usual activities. Yesterday he went fishing with friends but could not even get out of the truck to go down to the water. He also complains of poor appetie for months. In the ED he was found to have a Hb of 3.5, His guaiac was negative. He is being admitted for symptomatic anemia. Symptomatic anemia macrocytic Anemia will check vit B12, folate, iron studies, esmer test, ESR, SPEP, peripheral smear. Will check stool for occult blood, guaic negative in ED. 4 units PRC with lasix in between Check HH q 6 hours. Pantoprazole bid. 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 Rheumatoid arthritis continue prednisone DVT prophylaxis ordered. Plan / VTE VTE Prophylaxis Ordered?: Yes CHERRI MATTHEW MD August 29, 2018 20:30
[2018-08-29 20:47] LABS: ALT/SGPT 73 U/L (12-78); BILIRUBIN,DIRECT 0.1 MG/DL (0.0-0.2); BILIRUBIN,TOTAL 0.5 MG/DL (0.2-1.0); ERYTHROCYTE SEDIMENTATION RATE 126 mm/hr (0-15); FERRITIN 527 NG/ML (26-388); IRON (FE) 217 UG/DL (65-175); PERCENT SATURATION 77.5 % (19.7-50.0); TOTAL IRON BINDING CAPACITY 280 UG/DL (250-450); TOTAL PROTEIN 7.1 GM/DL (6.4-8.2)
--- NOTE | 2018-08-29 21:14 | ECGEPIP ---
[facility] - ED Test Date: 2018-08-29 Pat Name: FLASH CASTELLANOS Department: Room: - Gender: Male [employer] Architect: CECELIA : 1980 Requested By: Mercy Espitia Order Number: [id number] Reading MD: Mercy Espitia Measurements Intervals [place] Rate: 102 P: 64 TN: 144 QRS: 23 QRSD: 98 T: 41 QT: 338 QTc: 442 Interpretive Statements SINUS TACHYCARDIA WITH OCCASIONAL SUPRAVENTRICULAR PREMATURE COMPLEXES NONSPECIFIC T-WAVE ABNORMALITY ABNORMAL RHYTHM ECG POSSIBLE PRIOR INFARCT SIMILAR 12/16/17 Electronically Signed on 08-29-2018 21:14:20 EDT by Mercy Espitia
[2018-08-29 21:22] LABS: FOLATE 14.1 NG/ML (>5.4); VITAMIN B12 LEVEL 375 PG/ML (247-911)
[2018-08-29 21:40] VITALS: BP 134/80
[2018-08-29 21:55] VITALS: BP 139/81
[2018-08-29 22:55] VITALS: BP 128/81
[2018-08-29] MEDS: DOCUSATE SODIUM 100 MG CAP PO SCH (23:04)
[2018-08-29] MEDS: predniSONE 10 MG TAB PO SCH (23:04)
[2018-08-29] MEDS: GABAPENTIN 300 MG CAP PO SCH (23:04)
[2018-08-29] MEDS: PANTOPRAZOLE 40MG INJ (PROTONIX) (C9113) IV SCH (23:05)
[2018-08-29 23:30] VITALS: BP 126/75
[2018-08-29 23:45] VITALS: BP 127/74
[2018-08-30] VITALS (13 sets, daily range): BP systolic 116–154; BP diastolic 66–97
[2018-08-30 06:57] LABS: BASO % 0.1 % (0.0-1.0); EOS % 0.1 % (0.0-3.0); HEMATOCRIT 19.4 % (42.0-52.0); LYMPH % 43.7 % (24.0-44.0); MEAN CORPUSCULAR HEMOGLOBIN 34.2 pg (27.0-33.0); MEAN CORPUSCULAR HGB CONC 34.5 g/dl (32.0-36.5); MONO # 0.9 10^3/uL (0.0-0.8); MONO % 12.7 % (0.0-5.0); NEUTROPHILS # 2.9 10^3/uL (1.8-7.7); NEUTROPHILS % 41.8 % (36.0-66.0); PLATELET COUNT, AUTOMATED 322 10^3/uL (150-450); RED BLOOD COUNT 1.96 10^6/uL (4.30-6.10)
[2018-08-30 07:00] LABS: HEMOGLOBIN 6.7 g/dl (13.5-17.5)
[2018-08-30 07:21] LABS: BLOOD UREA NITROGEN 10 MG/DL (7-18); CALCIUM LEVEL 8.9 MG/DL (8.5-10.1); CARBON DIOXIDE LEVEL 26 MEQ/L (21-32); CHLORIDE LEVEL 107 MEQ/L (98-107); CREATININE FOR GFR 0.66 MG/DL (0.70-1.30); GLOMERULAR FILTRATION RATE > 60.0 (>60); GLUCOSE, FASTING 102 MG/DL (70-100); POTASSIUM SERUM 3.7 MEQ/L (3.5-5.1); SODIUM LEVEL 140 MEQ/L (136-145)
[2018-08-30] MEDS ORDERED: NS 1,000 ML IV SCH (07:26)
[2018-08-30] MEDS: PANTOPRAZOLE 40MG INJ (PROTONIX) (C9113) IV SCH ×2 (09:04→21:22)
[2018-08-30] MEDS: predniSONE 10 MG TAB PO SCH ×2 (09:04→21:22)
[2018-08-30] MEDS: GABAPENTIN 300 MG CAP PO SCH ×2 (09:04→21:22)
[2018-08-30] MEDS: DOCUSATE SODIUM 100 MG CAP PO SCH ×2 (09:04→21:22)
[2018-08-30] MEDS ORDERED: ISOVUE-370 76% 100ML VIAL (Q9967) As Ordered ONE (12:58)
[2018-08-30 13:28] LABS: HEMATOCRIT 21.8 % (42.0-52.0); HEMOGLOBIN 7.5 g/dl (13.5-17.5)
[2018-08-30] MEDS ORDERED: GOLYTELY SOLN 4000 ML BTL PO ONE (14:00)
--- NOTE | 2018-08-30 14:09 | REP ---
Clinical: Acute chest pain and shortness of breath. Technique: Axial contrast enhanced images from the thoracic inlet to the upper abdomen using 100 ml Isovue 370 intravenous contrast material with coronal and sagittal re-formations. Findings: Satisfactory enhancement of the pulmonary vasculature is achieved and no filling defects are identified to suggest pulmonary embolus. Thoracic aorta is normal caliber without aneurysm or dissection. Heart and pericardium are normal. Bilateral lung howard are well aerated and clear without acute pulmonary parenchymal consolidation or atelectasis. No nodule or mass lesion. No pleural effusion/reaction. No pneumothorax. No adenopathy. Limited upper abdomen demonstrates innumerable hepatic cysts as well as 5.6 cm cyst in the visualized right kidney. Impression: No evidence for pulmonary embolus. No acute pleuroparenchymal or mediastinal process. Innumerable hepatic cysts and 5.6 cm cyst in the visualized right upper kidney requires correlation to exclude polycystic kidney disease. Electronically Signed by Toby Maurer MD 08/30/2018 02:00 P
[2018-08-30 14:10] LABS: ALBUMIN % 60.5 % (55.8-66.1); ALPHA-1-GLOBULIN % 5.2 % (2.9-4.9); ALPHA-1-GLOBULINS 0.37 GM/DL (0.17-0.41); ALPHA-2-GLOBULINS 0.72 GM/DL (0.42-0.99); ALPHA-2-GLOBULINS % 10.2 % (7.1-11.8); BETA-1-GLOBULINS 0.39 GM/DL (0.28-0.60); BETA-1-GLOBULINS % 5.5 % (4.7-7.2); BETA-2-GLOBULINS 0.31 GM/DL (0.19-0.55); BETA-2-GLOBULINS % 4.4 % (3.2-6.5); GAMMA GLOBULIN % 14.2 % (11.1-18.8)
[2018-08-30 14:11] LABS: GAMMA GLOBULINS 1.01 GM/DL (0.65-1.58)
--- NOTE | 2018-08-30 18:02 | IPNPDOC ---
Subjective Date Seen The patient was seen on 08/30/18. Subjective Chief Complaint/HPI Dyspnea on exertion/shortness of breath on exertion, loss of appetite, nausea Events since last encounter The patient reports he had noticed having problems with dyspnea on exertion which has been progressive worsening over the last few months. Reports he perhaps had some blackish stool yesterday morning. But otherwise has not noticed any christina blood in stools or any dark/tarry stools. Does report using around 600 mg of ibuprofen 2-3 times a day for his rheumatoid arthritis. In addition he also takes prednisone for his rheumatoid arthritis. Reports lack of appetite as well as some nausea. Denies any vomiting. Patient received 4 units packed RBCs last night and was getting 5th unit packed RBC at the time of my evaluation Objective Physical Examination General Exam: Positive: Alert, Cooperative, No Acute Distress Eye Exam: Positive: PERRLA; Negative: Sclera icteric ENT Exam: Positive: Atraumatic, Mucous membr. moist/pink Chest Exam: Positive: Clear to auscultation, Normal air movement Heart Exam: Positive: Rate Normal, Regular Rhythm, Normal S1, Normal S2; Negative: Murmurs, Rubs Abdomen Exam: Positive: Normal bowel sounds, Soft; Negative: Tenderness, Hepatospenomegaly Extremity Exam: Negative: Clubbing, Cyanosis Skin Exam: Positive: Lesion (right leg skin ulcer with healthy-appearing base. No drainage. No surrounding erythema.) Neuro Exam: Positive: Other (awake, alert, answering questions appropriately and moving all 4 extremities) Assessment /Plan Assessment CT angiogram chestPE protocol: Impression: No evidence for pulmonary embolus. No acute pleuroparenchymal or mediastinal process. Innumerable hepatic cysts and 5.6 cm cyst in the visualized right upper kidney requires correlation to exclude polycystic kidney disease. Current Medications Docusate Sodium (Colace) 100 mg BID PO Last administered on 08/30/18at 09:04; Start 08/29/18 at 21:00 Gabapentin (Neurontin) 600 mg BID PO Last administered on 08/30/18at 09:04; Start 08/29/18 at 21:00 Home Med (Med Rec Complete!) ASDIRECTED XX ; Start 08/29/18 at 19:00; Stop 08/29/18 at 19:00; Status DC Pantoprazole Sodium (Protonix) 40 mg Q12H IV Last administered on 08/30/18at 09:04; Start 08/29/18 at 21:00 Prednisone (Deltasone) 10 mg BID PO Last administered on 08/30/18at 09:04; Start 08/29/18 at 21:00 Sodium Chloride 1,000 ml @ 15 mls/hr Q24H IV Last administered on 08/30/18at 10:16; Start 08/30/18 at 07:26; Stop 08/30/18 at 14:55; Status DC Severe symptomatic anemia, macrocytic: -MCV 120 -Discussed with Dr. Shearer from hematology oncology as well as with Dr. Montague from gastroenterology -Given that patient has had a drop in his hemoglobin from a baseline of around 9-10 in April to 3.5 on presentation, and given his symptoms of nausea, lack of appetite and reported dark stool yesterday morning, plan will be to proceed with EGD/colonoscopy tomorrow. GoLYTELY prep ordered. -Patient is status post total 5 units packed RBC. Repeat hemoglobin is now more than 7. Monitor. -We will need to rule out any underlying bone marrow problems concentrating to his anemia as well. -Wednesday, patient seems to have some anemia of chronic disease as well in setting of rheumatoid arthritisbaseline hemoglobin appears to have ranged from 9-11 since 2010. -B12, folic acid levels normal. Iron studies indicate elevated ferritin, eleva dee iron levels as well as normal iron-binding capacity and high TIBC -SPEP showed normal pattern -Stool guaiac was negative on presentation -Continue PPI Chronic leg ulcer -Continue wound care. Patient sees Dr. Monsalve as outpatient. Rheumatoid arthritis -Continue prednisone Elevated d-dimer: -Suspect related to moderate arthritis -CT PE study was negative for pulmonary embolism Hepatic/renal cysts: -Noted on CTA chest -May have underlying polycystic kidney diseasemay be followed up as an outpatient -Renal function normal DVT prophylaxis: -SCDs - no enoxaparin in setting of severe anemia until GI bleed ruled out Time spent in reviewing patient's chart, imaging studies as well as examining and discussing plan of care with patient was 35 minutes. Out of this, more than 50% was spent [id number]. Plan/VTE VTE Prophylaxis Ordered?: Yes VS, I&O, 24H, Fishbone Vital Signs/I&O Vital Signs Date Time Temp Pulse Resp B/P (MAP) Pulse Ox O2 Delivery O2 Flow Rate FiO2 08/30/18 14:00 98.2 83 16 139/86 (103) 98 08/29/18 21:16 Room Air I&O- Last 24 Hours up to 6 AM 08/30/18 06:00 Intake Total 1620 ml Output Total 2325 ml Balance -705 ml Laboratory Data 24H LABS Laboratory Tests 2 08/30/18 06:36: Immature Granulocyte % (Auto) 1.6, White Blood Count 7.0, Red Blood Count 1.96L, Hemoglobin 6.7#*L, Hematocrit 19.4L, Mean Corpuscular Volume 99.0H, Mean Corpuscular Hemoglobin 34.2H, Mean Corpuscular Hemoglobin Concent 34.5, Red Cell Distribution Width 23.2H, Platelet Count 322, Neutrophils (%) (Auto) 41.8, Lymphocytes (%) (Auto) 43.7, Monocytes (%) (Auto) 12.7H, Eosinophils (%) (Auto) 0.1, Basophils (%) (Auto) 0.1, Neutrophils # (Auto) 2.9, Lymphocytes # (Auto) 3.0, Monocytes # (Auto) 0.9H, Eosinophils # (Auto) 0.0, Basophils # (Auto) 0.0, Nucleated Red Blood Cells % (auto) 0.0, Anion Gap 7L, Glomerular Filtration Rate > 60.0, Blood Urea Nitrogen 10, Creatinine 0.66L, Sodium Level 140, Potassium Level 3.7, Chloride Level 107, Carbon Dioxide Level 26, Calcium Level 8.9 CBC/BMP Laboratory Tests 08/30/18 06:36 Red Blood Count 1.96 L, Mean Corpuscular Volume 99.0 H, Mean Corpuscular Hemoglobin 34.2 H, Mean Corpuscular Hemoglobin Concent 34.5, Red Cell Distribution Width 23.2 H, Neutrophils (%) (Auto) 41.8, Lymphocytes (%) (Auto) 43.7, Monocytes (%) (Auto) 12.7 H, Eosinophils (%) (Auto) 0.1, Basophils (%) (Auto) 0.1, Neutrophils # (Auto) 2.9, Lymphocytes # (Auto) 3.0, Monocytes # (Auto) 0.9 H, Eosinophils # (Auto) 0.0, Basophils # (Auto) 0.0, Calcium Level 8.9 08/30/18 13:00 Microbiology Microbiology 08/30/18 Stool Occult Blood ([facility]EN) - Final, Complete LOPEZ,PROSPER Perkins MD August 30, 2018 18:02
[2018-08-30 18:11] LABS: HEMOGLOBIN 7.9 g/dl (13.5-17.5)
[2018-08-31 00:19] LABS: HEMATOCRIT 22.3 % (42.0-52.0); HEMOGLOBIN 7.6 g/dl (13.5-17.5)
[2018-08-31 06:00] VITALS: BP 129/81
--- NOTE | 2018-08-31 07:04 | CR ---
DATE OF CONSULTATION: 08/30/2018 This is a 38-year-old white male admitted to [facility] ([facility]) for evaluation of weakness, loss of appetite and shortness of breath. The patient has a known history of rheumatoid arthritis on chronic medications of prednisone and Enbrel 50 mg IM injection once a week. The patient has had a leg ulcer for approximately 6 weeks which is being treated at the wound clinic with Dr. Monsalve. The patient has had over the past month increasing fatigue and shortness of breath. No complaints of abdominal pain, change in bowel habits, melena, hematochezia, or bright red blood per rectum. No apparent fevers, night sweats or shaking chills. No involuntary weight loss. The patient came to the emergency room due to the fatigue and was found have a hemoglobin of 3.5. Apparently, the stool testing for occult blood was negative. MEDICATIONS AT HOME: - alendronate - Enbrel - iron - gabapentin - prednisone 10 mg by mouth twice a day. ALLERGIES: No known apparent allergies. PAST MEDICAL HISTORY: As above. PAST SURGICAL HISTORY: Includes a left total hip replacement. FAMILY HISTORY: Noncontributory to the above problem, though there is history of celiac disease associated with the mother. SOCIAL HISTORY: Cigarettes and alcohol none. The patient apparently uses marijuana periodically for controlling his chronic pain. REVIEW OF SYSTEMS: Noncontributory to above problem. PHYSICAL EXAMINATION: He is a well-developed, well-nourished white male in no on obvious acute distress. Appears stated age. Abdomen: Soft, nontender. No masses, guarding, rebound or hepatosplenomegaly. Bowel sounds positive. LABORATORY STUDIES: On include a CBC from 08/29/2018 which showed a hemoglobin of 3.5, hematocrit of 10.8, MCV 120, platelets 320,000 and white count was 6,000. The patient has been given during this hospitalization 5 units of packed cells and the most recent hemoglobin/hematocrit (H/H) is 7.9 and 23.0. The patient has a retic count of 38. His INR was 1.11. D-dimer was elevated to over 1000. His chemistry showed normal liver function tests and kidney function with BUN of 13.6. Iron levels were 217, ferritin was 527, transferrin saturation was 77.5. Vitamin B12 was 375 and folate was 14. IMAGING STUDIES: Including a CT angio due to the elevated D-dimer and a history of shortness of breath which was essentially negative for a pulmonary embolus. ANALYSIS: Anemia of unknown etiology. At the present time, the patient has been using nonsteroidals periodically for his arthritis. He denies any episodes of bleeding and has never had any problems with anemia at this point. PLAN: Will be to set the patient up for upper endoscopy with a small bowel biopsies and colonoscopy for evaluation of any possible GI pathology that might cause his anemia. Informed consent with the following complications, but not limited to, perforation and GI bleeding, have been discussed with the patient. Maintain blood transfusions as needed to elevate the patient's blood count. Upper endoscopy with colonoscopy after bowel prep will be set up for tomorrow.
[2018-08-31 07:08] LABS: BASO % 0.4 % (0.0-1.0); EOS % 0.2 % (0.0-3.0); HEMATOCRIT 20.9 % (42.0-52.0); HEMOGLOBIN 7.2 g/dl (13.5-17.5); LYMPH # 2.7 10^3/uL (1.5-4.5); MEAN CORPUSCULAR HEMOGLOBIN 33.3 pg (27.0-33.0); MEAN CORPUSCULAR HGB CONC 34.4 g/dl (32.0-36.5); MEAN CORPUSCULAR VOLUME 96.8 fl (80.0-96.0); MONO # 0.8 10^3/uL (0.0-0.8); MONO % 14.7 % (0.0-5.0); NEUTROPHILS # 2.1 10^3/uL (1.8-7.7); NEUTROPHILS % 36.3 % (36.0-66.0); PLATELET COUNT, AUTOMATED 277 10^3/uL (150-450); RED BLOOD COUNT 2.16 10^6/uL (4.30-6.10); WHITE BLOOD COUNT 5.7 10^3/uL (4.0-10.0)
[2018-08-31 07:28] LABS: BLOOD UREA NITROGEN 11 MG/DL (7-18); C REACTIVE PROTEIN QUANTITATIV 0.34 MG/DL (0.00-0.30); CALCIUM LEVEL 8.2 MG/DL (8.5-10.1); CARBON DIOXIDE LEVEL 25 MEQ/L (21-32); CHLORIDE LEVEL 106 MEQ/L (98-107); CREATININE FOR GFR 0.51 MG/DL (0.70-1.30); GLOMERULAR FILTRATION RATE > 60.0 (>60); GLUCOSE, FASTING 99 MG/DL (70-100); MAGNESIUM LEVEL 2.3 MG/DL (1.8-2.4); PHOSPHORUS LEVEL 3.2 MG/DL (2.5-4.9); POTASSIUM SERUM 3.7 MEQ/L (3.5-5.1); SODIUM LEVEL 139 MEQ/L (136-145)
[2018-08-31] MEDS: PANTOPRAZOLE 40MG INJ (PROTONIX) (C9113) IV SCH ×2 (09:16→20:25)
[2018-08-31] MEDS: GABAPENTIN 300 MG CAP PO SCH ×2 (09:16→20:25)
[2018-08-31] MEDS: predniSONE 10 MG TAB PO SCH ×2 (09:16→20:25)
[2018-08-31] MEDS: DOCUSATE SODIUM 100 MG CAP PO SCH ×2 (09:16→20:25)
[2018-08-31] MEDS ORDERED: PROPOFOL 200 MG/20 ML VIAL As Ordered ONE ×2 (14:36→14:58)
[2018-08-31] MEDS ORDERED: LIDOCAINE 2% INJ 100 MG/5 ML SDV (FOR ANES.) As Ordered ONE (14:36)
[2018-08-31] MEDS ORDERED: fentaNYL 100 MCG/2 ML INJECTION (J3010) As Ordered ONE (14:37)
--- NOTE | 2018-08-31 15:00 | ROOR ---
Patient Name: Ronald Carrillo Procedure Date: 08/31/2018 2:42 PM Date of : 1980 Age: 38 Room: [facility] Gender: Male Note Status: Finalized Procedure: Upper Endoscopy + Biopsies Indications: Unexplained iron deficiency anemia Providers: Giancarlo Montague MD Referring MD: 2. Inpatient 2. Inpatient Requesting Provider: Medicines: Monitored Anesthesia Care Complications: No immediate complications. Procedure: Pre-Anesthesia Assessment: - The heart rate, respiratory rate, oxygen saturations, blood pressure, adequacy of pulmonary ventilation, and response to care were monitored throughout the procedure. The Endoscope was introduced through the mouth, and advanced to the second part of duodenum. The upper GI endoscopy was accomplished without difficulty. The patient tolerated the procedure well. Findings: The Z-line was irregular and was found 40 cm from the incisors. Multiple biopsies were obtained with cold forceps for evaluation to rule out Segura's Esophagus randomly at the gastroesophageal junction. A small hiatal hernia was present. No other significant abnormalities were identified in a careful examination of the stomach. The exam of the duodenum was otherwise normal. Biopsies for histology were taken with a cold forceps in the first portion of the duodenum and in the second portion of the duodenum for evaluation of celiac disease. The exam was otherwise without abnormality. Impression: - Z-line irregular, 40 cm from the incisors. - Small hiatal hernia. - The examination was otherwise normal. - Multiple biopsies were obtained at the gastroesophageal junction. - Biopsies were taken with a cold forceps for evaluation of celiac disease. - The examination was otherwise normal. Recommendation: - Patient has a contact number available for emergencies. The signs and symptoms of potential delayed complications were discussed with the patient. Return to normal activities tomorrow. Written discharge instructions were provided to the patient. - High fiber diet. - Follow an antireflux regimen. - Continue present medications. - Await pathology results. - Telephone GI clinic for pathology results in 1 week. - [facility]. - The findings and recommendations were discussed with the patient's family. Giancarlo Montague MD Giancarlo Montague MD 08/31/2018 2:59:42 PM Electronically signed by Giancarlo Montague MD Number of Addenda: 0 Note Initiated On: 08/31/2018 2:42 PM Estimated Blood Loss: Estimated blood loss: none.
--- NOTE | 2018-08-31 15:18 | ROOR ---
Patient Name: Ronald Carrillo Procedure Date: 08/31/2018 2:41 PM Date of : 1980 Age: 38 Room: [facility] Gender: Male Note Status: Finalized Procedure: Total Colonoscopy to Cecum + ileoscopy Indications: Iron deficiency anemia Providers: Giancarlo Montague MD Referring MD: 2. Inpatient 2. Inpatient Requesting Provider: Medicines: Monitored Anesthesia Care Complications: No immediate complications. Procedure: Pre-Anesthesia Assessment: - The heart rate, respiratory rate, oxygen saturations, blood pressure, adequacy of pulmonary ventilation, and response to care were monitored throughout the procedure. The Colonoscope was introduced through the anus and advanced to the terminal ileum, with identification of the appendiceal orifice and IC valve. The colonoscopy was performed without difficulty. The patient tolerated the procedure well. The quality of the bowel preparation was good. Findings: The perianal and digital rectal examinations were normal. Non-bleeding internal hemorrhoids were found during retroflexion. The hemorrhoids were small and Grade I (internal hemorrhoids that do not prolapse). No other significant abnormalities were identified in a careful examination of the remainder of the colon. The terminal ileum appeared normal. The exam was otherwise without abnormality on direct and retroflexion views. Impression: - Non-bleeding internal hemorrhoids. - The examined portion of the ileum was normal. - The examination was otherwise normal on direct and retroflexion views. - No specimens collected. - The exam was otherwise normal to the cecum. Recommendation: - Patient has a contact number available for emergencies. The signs and symptoms of potential delayed complications were discussed with the patient. Return to normal activities tomorrow. Written discharge instructions were provided to the patient. - High fiber diet. - Continue present medications. - Repeat colonoscopy at age 48 for screening purposes. - [facility]. - The findings and recommendations were discussed with the patient's family. Giancarlo Montague MD Giancarlo Montague MD 08/31/2018 3:17:46 PM Electronically signed by Giancarlo Montague MD Number of Addenda: 0 Note Initiated On: 08/31/2018 2:41 PM Estimated Blood Loss: Estimated blood loss: none.
[2018-08-31 16:47] LABS: HEMATOCRIT 21.9 % (42.0-52.0); HEMOGLOBIN 7.5 g/dl (13.5-17.5)
[2018-08-31] MEDS ORDERED: ISOVUE-370 76% 100ML VIAL (Q9967) As Ordered ONE (17:21)
--- NOTE | 2018-08-31 17:48 | IPNPDOC ---
Subjective Date Seen The patient was seen on 08/31/18. Subjective Chief Complaint/HPI Dyspnea on exertion/shortness of breath on exertion, loss of appetite, nausea Events since last encounter The patient reports he is doing well. He took the colonoscopy prep and had several loose bowel movements. Denies any abdominal pain. No nausea or vomiting today - in fact feels a little hungry. Denies any chest pain or shortness of breath although he has not ambulated much at this time. Urinating okay. Did not notice any blood in stools or urine Objective Physical Examination General Exam: Positive: Alert, Cooperative, No Acute Distress, Other (Sitting up in bed) Eye Exam: Positive: PERRLA ENT Exam: Positive: Mucous membr. moist/pink Chest Exam: Positive: Clear to auscultation, Normal air movement Heart Exam: Positive: Rate Normal, Regular Rhythm, Normal S1, Normal S2; Negative: Murmurs, Rubs Abdomen Exam: Positive: Soft; Negative: Tenderness Skin Exam: Positive: Lesion (right leg in nelida-bandage - this was not taken off) Neuro Exam: Positive: Other (awake, alert, answering questions appropriately and moving all 4 extremities) RAD Interpretation STUDY: Neck CT- results pending Assessment /Plan Assessment EGD Findings: Small hiatal hernia. Biopsies taken from the GE junction as well as duodenum. Colonoscopy findings: Nonbleeding internal hemorrhoids. Ileum and cecum normal Current Medications Docusate Sodium (Colace) 100 mg BID PO Last administered on 08/31/18 09:16; Start 08/29/18 at 21:00 Gabapentin (Neurontin) 600 mg BID PO Last administered on 08/31/18 09:16; Start 08/29/18 at 21:00 Home Med (Med Rec Complete!) ASDIRECTED XX ; Start 08/29/18 at 19:00; Stop 08/29/18 at 19:00; Status DC Pantoprazole Sodium (Protonix) 40 mg Q12H IV Last administered on 08/31/18 09:16; Start 08/29/18 at 21:00 Prednisone (Deltasone) 10 mg BID PO Last administered on 08/31/18 09:16; Start 08/29/18 at 21:00 Sodium Chloride 1,000 ml @ 15 mls/hr Q24H IV Last administered on 08/30/18at 10:16; Start 08/30/18 at 07:26; Stop 08/30/18 at 14:55; Status DC Severe symptomatic anemia, macrocytic: -MCV 120 -Pt was seen by Dr. Shearer from hematology oncology as well as with Dr. Montague from gastroenterology -s/p EGD and colonoscopy today - findings as noted above -Patient is status post total 5 units packed RBC. Repeat hemoglobin 7.5 this afternoon. Transfuse if hemoglobin less than 7. -Celiac panel as well as CT scan of neck ordered by Dr Shearer -B12, folic acid levels normal. Iron studies indicate elevated ferritin, elevated iron levels as well as normal iron-binding capacity and high TIBC -SPEP showed normal pattern -Stool guaiac was negative on presentation -Continue PPI -Patient has been advised by Dr. Montague to contact his office in one week to follow up on results of the pathology from biopsy specimens Chronic leg ulcer -Continue wound care. Patient sees Dr. Monsalve as outpatient. Rheumatoid arthritis -Continue prednisone Elevated d-dimer: -Suspect related to moderate arthritis -CT PE study was negative for pulmonary embolism Hepatic/renal cysts: -Noted on CTA chest -May be followed up as an outpatient - discussed with patient regarding same today. May benefit from outpatient dedicated imaging of abdomen/kidneys -Renal function normal DVT prophylaxis: -SCDs -Encouraged ambulation -Avoiding blood thinners in setting of severe symptomatic anemia Plan/VTE VTE Prophylaxis Ordered?: Yes VS, I&O, 24H, Fishbone Vital Signs/I&O Vital Signs Date Time Temp Pulse Resp B/P (MAP) Pulse Ox O2 Delivery O2 Flow Rate FiO2 08/31/18 06:00 98.9 74 16 129/81 (97) 94 08/29/18 21:16 Room Air I&O- Last 24 Hours up to 6 AM 08/31/18 06:00 Intake Total 1470 ml Output Total 300 ml Balance 1170 ml Laboratory Data 24H LABS Laboratory Tests 2 08/30/18 17:50: Reticulocyte # (auto) 23.5, Percent Reticulocyte Count 1.0, Reticulocyte Hemoglobin Equivalent 38.0H 08/30/18 23:50: 08/31/18 06:22: Immature Granulocyte % (Auto) 1.4, White Blood Count 5.7, Red Blood Count 2.16L, Hemoglobin 7.2L, Hematocrit 20.9L, Mean Corpuscular Volume 96.8H, Mean Corpuscular Hemoglobin 33.3H, Mean Corpuscular Hemoglobin Concent 34.4, Red Cell Distribution Width 21.7H, Platelet Count 277, Neutrophils (%) (Auto) 36.3, Lymphocytes (%) (Auto) 47.0H, Monocytes (%) (Auto) 14.7H, Eosinophils (%) (Auto) 0.2, Basophils (%) (Auto) 0.4, Neutrophils # (Auto) 2.1, Lymphocytes # (Auto) 2.7, Monocytes # (Auto) 0.8, Eosinophils # (Auto) 0.0, Basophils # (Auto) 0.0, Nucleated Red Blood Cells % (auto) 0.0, Differential Slide Review Report, Peripheral Blood Smear Path Consult PERIPHERAL SMEAR, Anion Gap 8, Glomerular Filtration Rate > 60.0, Blood Urea Nitrogen 11, Creatinine 0.51L, Sodium Level 139, Potassium Level 3.7, Chloride Level 106, Carbon Dioxide Level 25, Calcium Level 8.2L, Phosphorus Level 3.2, Magnesium Level 2.3, C-Reactive Protein, Quant itative 0.34H CBC/BMP Laboratory Tests 08/30/18 17:50 08/30/18 23:50 08/31/18 06:22 Red Blood Count 2.16 L, Mean Corpuscular Volume 96.8 H, Mean Corpuscular Hemoglobin 33.3 H, Mean Corpuscular Hemoglobin Concent 34.4, Red Cell Distribution Width 21.7 H, Neutrophils (%) (Auto) 36.3, Lymphocytes (%) (Auto) 47.0 H, Monocytes (%) (Auto) 14.7 H, Eosinophils (%) (Auto) 0.2, Basophils (%) (Auto) 0.4, Neutrophils # (Auto) 2.1, Lymphocytes # (Auto) 2.7, Monocytes # (Auto) 0.8, Eosinophils # (Auto) 0.0, Basophils # (Auto) 0.0, Calcium Level 8.2 L 08/31/18 16:27 Microbiology Microbiology 08/30/18 Stool Occult Blood ([facility]) - Final, Complete LOPEZ,PROSPER Perkins MD August 31, 2018 17:48
[2018-08-31 22:00] VITALS: BP 131/81
[2018-09-01 06:00] VITALS: BP 127/71
[2018-09-01 06:22] LABS: BASO % 0.3 % (0.0-1.0); EOS % 0.2 % (0.0-3.0); HEMOGLOBIN 7.7 g/dl (13.5-17.5); LYMPH # 3.3 10^3/uL (1.5-4.5); LYMPH % 50.7 % (24.0-44.0); MEAN CORPUSCULAR HEMOGLOBIN 32.9 pg (27.0-33.0); MEAN CORPUSCULAR HGB CONC 33.5 g/dl (32.0-36.5); MEAN CORPUSCULAR VOLUME 98.3 fl (80.0-96.0); MONO # 0.9 10^3/uL (0.0-0.8); MONO % 14.1 % (0.0-5.0); NEUTROPHILS # 2.2 10^3/uL (1.8-7.7); NEUTROPHILS % 33.8 % (36.0-66.0); PLATELET COUNT, AUTOMATED 305 10^3/uL (150-450); RED BLOOD COUNT 2.34 10^6/uL (4.30-6.10); WHITE BLOOD COUNT 6.5 10^3/uL (4.0-10.0)
[2018-09-01 06:44] LABS: BLOOD UREA NITROGEN 11 MG/DL (7-18); CALCIUM LEVEL 8.5 MG/DL (8.5-10.1); CARBON DIOXIDE LEVEL 25 MEQ/L (21-32); CHLORIDE LEVEL 107 MEQ/L (98-107); GLOMERULAR FILTRATION RATE > 60.0 (>60); GLUCOSE, FASTING 100 MG/DL (70-100); POTASSIUM SERUM 3.8 MEQ/L (3.5-5.1); SODIUM LEVEL 139 MEQ/L (136-145)
--- NOTE | 2018-09-01 08:55 | REP ---
CT NECK WITH CONTRAST: HISTORY: Enlarged right lymph nodes. CONTRAST: Isovue 370, 75 mL. Calcifications are present in the tonsils. This is secondary to previously inflammatory disease. The naso-, bess-, and hypopharynx, larynx and subglottic trachea are otherwise normal in appearance. The salivary glands are normal in size and density. A 4 mm hypodensity is present in the right thyroid lobe. This most likely represents a cyst. The left thyroid lobe is normal in size and density. Small lymph nodes less than 1 cm in size are present in the internal jugular chains, posterior triangles, and submandibular areas. Minimal degenerative change is present in the cervical spine. The lung apices are clear. Minimal mucosal thickening is present in the ethmoid and right maxillary sinuses. IMPRESSION: There is no neck mass or adenopathy. Electronically Signed by Dano Burch MD 09/01/2018 09:13 A
[2018-09-01] MEDS ORDERED: FOLIC ACID 1 MG TAB PO SCH (09:00)
[2018-09-01] MEDS: DOCUSATE SODIUM 100 MG CAP PO SCH (09:00)
[2018-09-01] MEDS: PANTOPRAZOLE 40MG INJ (PROTONIX) (C9113) IV SCH (09:42)
[2018-09-01] MEDS: GABAPENTIN 300 MG CAP PO SCH (09:42)
[2018-09-01] MEDS: predniSONE 10 MG TAB PO SCH (09:43)
--- NOTE | 2018-09-01 12:16 | CR ---
DATE OF CONSULTATION: 08/30/2018 AGE: 38. Consult requested by Dr. Russell Linton for evaluation of severe anemia in this young gentleman who was admitted on 08/29/2018 for a hemoglobin of 3.5 and symptomatic. HISTORY OF PRESENT ILLNESS: The patient is not the best of historians. He has been ill chronically for many, many years with rheumatoid arthritis and possibly psoriatic arthritis, and this evening he has been preparing for a colonoscopy for tomorrow and has been spending most of his time in the bathroom. We waited at least 20 minutes, and finally the patient was able to get off the toilet seat and come and sit on the bed and assist us with the interview. Since 1998 approximately, Mr. Carrillo said he has had rheumatoid arthritis diagnosed. It started out with the right knee getting painful and having fluid in it and then different joints and his finger joints, everything started hurting. He saw Dr. Reid from rheumatology in [place] once, and now he is being followed by Dr. Dos Santos in [place], [place]. Initially, the patient says he was on methotrexate for quite a few years, almost from to 2003 or 2004. He is not sure of the dates, but then the methotrexate was stopped, and now he has been on prednisone and Enbrel, along with osteoporosis precautions. In addition to that, the patient says he still does take an occasional ibuprofen now and then, not frequently, and he does take marijuana again, more so in the evenings and night, to help him sleep because it helps his pain. The patient is on gabapentin and Fosamax. The chart says the patient is on iron pills. The patient says he is not taking any iron pills. When he was on methotrexate, he was taking folic acid, but he is not on any folic acid now. The patient says he has gradually been getting more and more tired for at least 1 month. He gets blood regularly at [facility], but nothing was mentioned that he was getting severely anemic. He started going into the yard to do some yard work, and he had to sit down, he says about four or five times just to finish mowing the lawn once, and he tried to go fishing on the weekend with his friends, and he was so tight he could not even get out of the pickup truck. At times, he just cannot catch his breath. He feels so short of breath with minimal exertion, and he thought he was going to have a heart attack. There was no pain in the left arm. No actual pain, but the patient points to his precordial area that he was is getting short of breath there. The patient did not have any vomiting. No black bowel movements or dark stools. No blood in the stools. No blood in the urine. He is eating what he usually eats, nothing different; and he only taking what is basically prescribed other than the marijuana. His arthritis symptoms are about the same. Different joints hurt him quite bad, the finger joints, the wrist joints, the shoulder joints, the knee joints, the low back, everything hurts. He is still able to sleep with the head elevated at 30 degrees. He has not had any swelling on his feet or legs. No rash. No black and blue barker on his body or bruises or a petechial rash. No cough. No fever. No chills. No hemoptysis. The patient says he has been getting profuse night sweats. Actually before admission, he had one where he literally was drenched and had to change his clothes. The patient says he has not worked since his diagnosis. He has been on disability for 19 or 20 years. He is single. He has no children. His parents are alive, but he does not live with his parents. The patient used to smoke but quit smoking in 1998 roughly when he was diagnosed. The patient did use cocaine in his early 20s. He quit on his own. Did not need to go to rehab. No alcohol abuse and does use marijuana for pain control. Also sees the pain clinic physician. PAST HISTORY: Includes the following: The patient fell off the roof landing on his left hip many years ago before 2003. Abscess right lower quadrant abdominal wall, which started off with a spider bite, then developed cellulitis and an abscess which needed I and D in February of 2015. Folliculitis history. Pneumonia right lower lobe December 2017. Dislocation and fracture of the right thumb playing basketball in 2001, had closed reduction done. Right wrist fusion and transfer of tendons. Left hip replacement 2006. Pericarditis history, does not remember which year, it was felt to be related to the rheumatoid arthritis. Iron-deficiency anemia in the past, not recent, no recent blood transfusions. Left wrist surgery, also. Numerous visits to the emergency department more than 20 times since 2005. 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 The patient lives in [place], and his primary physician is Dr. Sonido Tabor. I think it is [facility]. The patient has a nonhealing ulcer right lower leg being managed by Dr. Monsalve from the wound clinic. ALLERGIES: To medications denied. FAMILY HISTORY: Parents are alive. Mother is reasonably healthy. Father has heart disease and dementia. The patient has one brother and two sisters in good health. On examination Mr. Carrillo is a pleasant young gentleman, awake, alert, oriented. Despite all his still able to smile. Temperature 99.0, heart rate 80 per minute, respirations 19 per minute, blood pressure 136.86, pulse ox 97% on room air. Conjunctivae pale. Sclerae do not appear icteric. The patient has a coombs face from the steroids. Oral cavity: Fortunately no stomatitis or thrush. Neck: Reveals definite fullness, especially in the right hyoid region. I thought I felt a large lymph node and many shotty lymph nodes bilaterally in the neck, small ones but definitely present. Lungs: Clear to auscultation. Cardiovascular system with a systolic murmur at the apex. No gallops or rubs. Rhythm was regular. Abdomen is soft. The patient's abdomen is a little bit distended from all the prep for the colonoscopy that is going on and the diarrhea that he is having, the clean-out. I did not palpate too deeply to precipitate any incontinence of stool right now. There is no obvious abscess or infection on the abdominal wall today. No pedal edema. No clubbing. No cyanosis. There is a bandage and Júnior wrap on the right lower extremity from Dr. Monsalve's office. Pedal pulses are well felt. Radial pulses are well felt. The patient has a lot of crippling deformities of his joints, especially the hand joints and the finger joints. Skin turgor is good. No petechiae, no bruises, no ecchymosis of significance. LAB DATA: Admission CBC: White count 6.0, platelets 320,000, hemoglobin 3.5, hematocrit 10.8, MCV 120, MCH 38.9, RDW 20.7. The differential was abnormal with 37% neutrophils, 46% lymphocytes, 14% monocytes. The peripheral smear showed 1+ polychromasia, 1+ poikilocytosis, 1+ anisocytosis, 4+ macrocytosis, and 1+ ovalocytes. Sed rate was 126. Posttransfusion today, August 30, 2018: Hemoglobin is up to 6.7, hematocrit 19.4, MCV has dropped to 99, RDW has gone up to 23.2, normal white count, normal platelet count. The differential shows now 41.8% neutrophils, 43.7% lymphs, and 12.7% monocytosis. Admission chemistries: Normal panel of CMP. Normal liver enzymes. GFR more than 60 mL per minute, calcium low at 8.3 with an albumin of 4.0, chlorides were 109. Serum iron 217 with a TIBC of 280, 77.5% saturation, and 527 ferritin level. Serum protein electrophoresis surprisingly is read as normal. Vitamin B12 level 375. Folate level 14.1. Admission PT/INR 14.5 and 1.11. D-dimer 1057.17. Chest x-ray: No acute process, cardiac or pulmonary. CT angio of the chest: No evidence of PE, no acute pleural, parenchymal, or mediastinal process. The patient has innumerable hepatic cysts and a 5.6-cm cyst in the right upper kidney. Pulmonary vasculature was normal. Heart and pericardium were normal. IMPRESSION: Mr. Carrillo, a young 38-year-old gentleman with severe anemia and a hemoglobin of 3.5 with macrocytic indices. The patient is immunosuppressed longstanding from his rheumatoid arthritis from his medications in the past. The patient was on methotrexate. Now he is on Enbrel and prednisone for many years now. The elevated MCV has some component from the prior methotrexate. The B12 level is low normal. The patient could still have true B12 deficiency, so an MMA is being ordered. Some old recent CBCs which the patient says he gets almost on a [facility] [place] would be of great help. If this is an acute drop, then only two things will give a huge acute drop, hemolysis or a bleed; and since the patient has nothing to documented the bleed, it probably has to be then hemolysis which probably is adding to the elevated MCV. Now that the patient has been transfused and appropriately so because the patient has severe symptomatic anemia, the MCV has come down to 99. He received 3 units of packed cells yesterday and 2 today. The hemolysis is a possibility, and occult GI blood loss will have to be looked into. GI service is already on the case and planning to do a colonoscopy and endoscopy on him obviously tomorrow. The patient is receiving the prep tonight. Could the patient have erythroid hypoplasia is a possibility. The patient's white count and platelets, the total number is normal, but our concern is that the patient has had these drenching night sweats. He has lymphadenopathy in the neck which I can palpate, whether it will show up on the CT or not is hard to say, but it is palpable; and he had before the blood transfusions, he had an abnormal differential, quite an abnormal differential. We would have liked to have sent out flow cytometry the very first day the patient came in on the peripheral blood. Will still try to send it out but not guaranteeing any results now, that the patient has received 5 units of packed cells. Does the patient have a lymphoproliferative disorder at the bone marrow level now ongoing, a question to consider in light of all the immunosuppressive agents the patient has received. A bone marrow test would also be helpful to see if the patient is developing myelodysplasia. He did take methotrexate for many, many years before. The patient could also still have B12 true deficiency, so we would suggest a trial of sublingual B12 and also add folic acid in case this turns out to be hemolysis, the folic acid will be helpful. We ordered an LDH and haptoglobin, but often haptoglobin take several days to come back. We have also ordered an MMA. That also might take a few days to come back. So, sublingual B12 and p.o. folate can be begun while we are waiting. Will try to keep the hemoglobin around 9 if possible; and once we establish whether this is hemolysis or not, then further workup and treatment can be offered. We already have a TRACIE, direct antiglobulin test, which has come back negative. The markedly elevated D-dimer could be secondary to the patient's inflammatory component of his RA. Interesting that with all the inflammation the patient has, his serum protein electrophoresis is reported as normal. Maybe the prednisone is masking some of his inflammatory responses. Once the patient is discharged, we would appreciate a referral to the hematology clinic in the outpatient department, where a bone marrow can be proceeded with and the patient closely monitored. We thank you for the kind referral. cc: Sonido Tabor MD Andtracy Dos Santos MD
[2018-09-01 14:00] VITALS: BP 129/80
[2018-09-01] MEDS ORDERED: FOLI1TAB11 PO (15:08)
[2018-09-01] MEDS ORDERED: OMEP-218 PO (15:08)
[2018-09-01] MEDS ORDERED: VITA500T40 PO (15:08)
--- NOTE | 2018-09-01 19:12 | DS.PDOC ---
Discharge Summary General Date of Admission August 29, 2018 at 20:01 Date of Discharge 09/01/18 Discharge Summary PROCEDURES PERFORMED DURING STAY: None. ADMITTING DIAGNOSES: Symptomatic anemia, chronic leg ulcer, rheumatoid arthritis DISCHARGE DIAGNOSES: Severe symptomatic anemiamacrocytic, chronic right leg ulcer, rheumatoid arthritis, elevated d-dimer likely secondary to rheumatoid arthritis, hepatic/r enal cysts COMPLICATIONS/CHIEF COMPLAINT: Symptomatic Anemia. HISTORY OF PRESENT ILLNESS: The patient is a 38-year-old gentleman with a previous history of rheumatoid arthritis on chronic prednisone and etanercept was chronic use of ibuprofen related to the ER with compressive increasing shortness of breath with exertion found to have a hemoglobin of 3.5 admitted to our facility for further man agement. HOSPITAL COURSE: Severe symptomatic anemia, macrocytic: -MCV was 120 -Pt was seen by Dr. Shearer from hematology oncology as well as with Dr. Montague from gastroenterology -s/p EGD and colonoscopy no obvious bleeding source identified. Patient was recommended PPI and to call Dr. Montague's clinic in one week to follow up on results of pathology from biopsy specimens -Patient is status post total 5 units packed RBC. Last hemoglobin 7.7. -Celiac panel pending. -CT scan of neck ordered by Dr. Shearer for concerns regarding cervical lymphadenopathy palpable examCT itself did not show any obvious lymphadenopathy. However, patient did report night sweats to Dr. Shearer. One concern would be regarding possible lymphomapatient will require outpatient follow-up at hematology/oncology clinic for possible bone marrow biopsythis was discussed with the patient. -Patient was started on oral B12 and folic acid per hematology recommendations. Iron studies indicate elevated ferritin, elevated iron levels as well as normal iron-binding capacity and high TIBCoral iron supplement has been discontinued -SPEP showed normal pattern Chronic leg ulcer -Continue wound care. Patient sees Dr. Monsalve as outpatient. Rheumatoid arthritis -Continue prednisone Elevated d-dimer: -Suspect related to rheumatoid arthritis -CT PE study was negative for pulmonary embolism Hepatic/renal cysts: -Noted on CTA chest -May be followed up as an outpatient - discussed with patient regarding same. May benefit from outpatient dedicated imaging of abdomen/kidneys -Renal function normal On day of discharge, patient is doing well. He is feeling much better as far as his dyspnea on exertionhe has been able to lap around the unit without having any shortness of breath. Denies any dizziness or lightheadedness. No bleeding problems. Tolerating oral intake. Plan is for patient to be discharged home t [facility]ce. DISCHARGE MEDICATIONS: Please see below. ALLERGIES: Please see below. PHYSICAL EXAMINATION ON DISCHARGE: VITAL SIGNS: Please see below. GENERAL: The patient was sitting up in bed. No distress HEENT: PERRL, OMM CARDIOVASCULAR EXAMINATION: S1, S2 heard, regular rate rhythm, no rubs or gallop s RESPIRATORY EXAMINATION: Clear to auscultation bilaterally ABDOMINAL EXAMINATION: Soft, nontender NEUROLOGICAL EXAMINATION: Awake, alert, answering questions appropriately. Moving all 4 extremities. LABORATORY DATA: Please see below. IMAGING: Neck CT: Calcifications are present in the tonsils. This is secondary to previously inflammatory disease. The naso-, bess-, and hypopharynx, larynx and subglottic trachea are otherwise normal in appearance. The salivary glands are normal in size and density. A 4 mm hypodensity is present in the right thyroid lobe. This most likely represents a cyst. The left thyroid lobe is normal in size and density. Small lymph nodes less than 1 cm in size are present in the internal jugular chains, posterior triangles, and submandibular areas. Minimal degenerative change is present in the cervical spine. The lung apices are clear. Minimal mucosal thickening is present in the ethmoid and right maxillary sinuses. IMPRESSION: There is no neck mass or adenopathy. CTA chest: Impression: No evidence for pulmonary embolus. No acute pleuroparenchymal or mediastinal process. Innumerable hepatic cysts and 5.6 cm cyst in the visualized right upper kidney requires correlation to exclude polycystic kidney disease. PROGNOSIS: Fair ACTIVITY: As tolerated. DIET: Regular DISCHARGE PLAN: Plan is for patient to be discharged home today. Hemoglobin has remained stable since yesterday. No bleeding noted. He has been advised outpatient follow-up as noted below: FOLLOW UP: DR MONSALVE [phone](09/08/18 @ 10AM) DR TABOR [phone] (09/09/18 @2PM) HEMOTOLOGY [phone] @ 09/19/18 @ 1PM) DISPOSITION: Home DISCHARGE INSTRUCTIONS: 1. . ITEMS TO FOLLOWUP ON ON OUTPATIENT: 1. Patient may require dedicated imaging of abdomen to evaluate for the h epatic/renal cysts - advised him to discuss with Dr. Tabor regarding same 2. Patient will require to follow-up on pending results ordered by Dr Shearer when he follows up at the hematology clinic. Emails require bone marrow biopsy. DISCHARGE CONDITION: Stable. TIME SPENT ON DISCHARGE: 45 minutes. Vital Signs/I&Os Vital Signs Date Time Temp Pulse Resp B/P (MAP) Pulse Ox O2 Delivery O2 Flow Rate FiO2 09/01/18 06:00 97.8 87 18 127/71 (89) 97 08/29/18 21:16 Room Air I&O- Last 24 Hours up to 6 AM 09/01/18 06:00 Intake Total 1600 ml Output Total 700 ml Balance 900 ml Laboratory Data Labs 24H Laboratory Tests 2 08/31/18 23:50: Lactate Dehydrogenase 270H 09/01/18 06:07: Immature Granulocyte % (Auto) 0.9, White Blood Count 6.5, Red Blood Count 2.34L, Hemoglobin 7.7L, Hematocrit 23.0L, Mean Corpuscular Volume 98.3H, Mean Corpuscular Hemoglobin 32.9, Mean Corpuscular Hemoglobin Concent 33.5, Red Cell Distribution Width 21.4H, Platelet Count 305, Neutrophils (%) (Auto) 33.8L, Lymphocytes (%) (Auto) 50.7H, Monocytes (%) (Auto) 14.1H, Eosinophils (%) (Auto) 0.2, Basophils (%) (Auto) 0.3, Neutrophils # (Auto) 2.2, Lymphocytes # (Auto) 3.3, Monocytes # (Auto) 0.9H, Eosinophils # (Auto) 0.0, Basophils # (Auto) 0.0, Nucleated Red Blood Cells % (auto) 0.0, Anion Gap 7L, Glomerular Filtration Rate > 60.0, Blood Urea Nitrogen 11, Creatinine 0.60L, Sodium Level 139, Potassium Level 3.8, Chloride Level 107, Carbon Dioxide Level 25, Calcium Level 8.5 CBC/BMP Laboratory Tests 08/31/18 16:27 09/01/18 06:07 Red Blood Count 2.34 L, Mean Corpuscular Volume 98.3 H, Mean Corpuscular Hemoglobin 32.9, Mean Corpuscular Hemoglobin Concent 33.5, Red Cell Distribution Width 21.4 H, Neutrophils (%) (Auto) 33.8 L, Lymphocytes (%) (Auto) 50.7 H, Monocytes (%) (Auto) 14.1 H, Eosinophils (%) (Auto) 0.2, Basophils (%) (Auto) 0.3, Neutrophils # (Auto) 2.2, Lymphocytes # (Auto) 3.3, Monocytes # (Auto) 0.9 H, Eosinophils # (Auto) 0.0, Basophils # (Auto) 0.0, Calcium Level 8.5 Microbiology Microbiology 08/30/18 Stool Occult Blood (WARREN) - Final, Complete Discharge Medications Scheduled Alendronate Sodium (Alendronate Sodium) 70 Mg Tablet, 70 MG PO 1XWK, (Reported) TUESDAYS Cyanocobalamin (Vitamin B-12) (Vitamin B-12) 500 Mcg Tablet, 500 MCG PO QHS Etanercept (Enbrel) 50 Mg/Ml Inj, 50 MG SC 1XWK, (Reported) TUESDAYS Folic Acid (Folic Acid) 1 Mg Tablet, 1 MG PO DAILY Gabapentin (Gabapentin) 600 Mg Tablet, 600 MG PO BID, (Reported) Omeprazole (Omeprazole) 20 Mg Capsule.dr, 20 MG PO DAILY Prednisone (Prednisone) 10 Mg Tab, 10 MG PO BID, (Reported) Scheduled PRN Ibuprofen (Ibuprofen) 600 Mg Tablet, 600 MG PO TID PRN for PAIN, (Reported) Allergies Coded Allergies: No Known Allergies (Unverified , 07/11/18) PROSPER LOPEZ MD September 01, 2018 15:08
[2018-09-01] MEDS ORDERED: CYANOCOBALAMIN 500 MCG TAB PO SCH (21:00)
[2018-09-03 00:14] LABS: ANA (HEP2) Negative (.); HAPTOGLOBIN 183 mg/dL (34-200); Methylmalonic Acid 100 nmol/L (0-378)
== END 2018-09-01 16:35 | disposition home or self-care (01) | DRG 812 ==
LOC: M ED 16:57 → M ED INP 20:01 → M MS5PR 21:30
PROVIDERS: ADMIT Internal Medicine Nephrology; ATTEND Internal Medicine
PROC: 30233N1 Transfusion of Nonautologous Red Blood Cells into Peripheral Vein, Percutaneous Approach (ICD-10-PCS; 2018-08-29)
PROC: 0DB98ZX Excision of Duodenum, Via Natural or Artificial Opening Endoscopic, Diagnostic (ICD-10-PCS; 2018-08-31)
PROC: 0DJD8ZZ Inspection of Lower Intestinal Tract, Via Natural or Artificial Opening Endoscopic (ICD-10-PCS; 2018-08-31)
PROC: 0DB48ZX Excision of Esophagogastric Junction, Via Natural or Artificial Opening Endoscopic, Diagnostic (ICD-10-PCS; principal; 2018-08-31 14:15)
DX: D53.9 Nutritional anemia, unspecified (principal); L97.919 Non-pressure chronic ulcer of unspecified part of right lower leg with unspecified severity; M06.9 Rheumatoid arthritis, unspecified; N28.1 Cyst of kidney, acquired; K76.89 Other specified diseases of liver; K22.70 Barrett's esophagus without dysplasia; K44.9 Diaphragmatic hernia without obstruction or gangrene; K64.0 First degree hemorrhoids; Z79.52 Long term (current) use of systemic steroids; Z96.642 Presence of left artificial hip joint; Z87.891 Personal history of nicotine dependence; Z79.899 Other long term (current) drug therapy

== ENCOUNTER 2018-09-20 14:23 | Outpatient (CLI) | payer MEDICARE, MEDICAID ==
[~2018-09-20] VITALS: Ht 180.3 cm; Wt 87.9 kg
[2018-09-20 14:45] VITALS: BP 135/72
== END 2018-09-20 18:15 | disposition home or self-care (01) ==
LOC: M INFU 14:23
PROVIDERS: ATTEND Internal Medicine Hematology & Oncology
DX: D64.9 Anemia, unspecified (principal)
CPT/HCPCS: 36430; P9040

== ENCOUNTER → 2018-09-20 | Outpatient (CLI) | payer MEDICARE, MEDICAID ==
[~2018-09-20] MED LIST changes: +ALEN70TA74 PO; +FOLI1TAB11 PO; +OMEP-218 PO; +VITA500T40 PO
== END ==
LOC: M LAB 10:21
PROVIDERS: ATTEND Internal Medicine Hematology & Oncology
DX: Z01.83 Encounter for blood typing (principal); D64.9 Anemia, unspecified
CPT/HCPCS: 36415; 36430; 86850; 86900; 86901; P9040

== ENCOUNTER → 2018-09-26 | Outpatient (CLI) | payer MEDICARE, MEDICAID ==
--- NOTE | 2018-09-26 15:16 | REP ---
Clinical: Anemia. Technique: Real time garcia scale ultrasound examination using curved array transducer. Findings: Liver demonstrates scattered benign appearing cysts measuring up to 2.2 x 2.1 x 2.0 cm in the left lobe and 4.5 x 5.5 x 5.6 cm in the right lobe. No further obvious significant hepatic abnormality appreciated. Spleen is normal in contour and echogenicity measuring 15.2 x 9.2 x 4.7 cm without focal splenic lesion appreciated. The pancreas is limited in evaluation due to interposed bowel gas but visualized portions appear normal. Gallbladder is unremarkable and without gallstones, wall thickening, or pericholecystic fluid. No biliary ductal dilatation is appreciated and the common bile duct measures 5.9 mm diameter. The right kidney measures 14.0 x 7.3 x 8.5 cm and includes multiple cysts measuring up to 5.0 x 5.0 x 4.6 cm in the upper pole without hydronephrosis or obvious renal mass. Left kidney measures 13.0 x 5.7 x 6.0 cm and is normal in reniform shape and appearance without hydronephrosis, cystic or mass lesion. Visualized abdominal aorta normal measuring 2.6 cm maximal diameter. No ascites. Impression: 1. Hepatic and right renal cysts. 2. Spleen is upper limits of normal in size without focal abnormality. Electronically Signed by Toby Maurer MD 09/26/2018 08:02 A
== END ==
LOC: M RAD 07:15
PROVIDERS: ATTEND Internal Medicine Hematology & Oncology
DX: N28.1 Cyst of kidney, acquired (principal); K76.89 Other specified diseases of liver; M06.9 Rheumatoid arthritis, unspecified

== ENCOUNTER → 2018-10-12 | Outpatient (CLI) | payer MEDICARE, MEDICAID ==
--- NOTE | 2018-10-12 14:25 | REP ---
PET/CT: History: Initial staging, T-cell lymphoma. History of severe rheumatoid arthritis. Psoriasis. Recent bone marrow aspirate for anemia and abnormal CBC showed abnormal T-cell population. Comparisons: Recent CT study of the chest and neck from August of 2018. TECHNIQUE: 46 minutes following the intravenous injection of a 9.45 mCi dose of F-18 FDG, three-dimensional PET scintigraphy is acquired from the skull base to the proximal thighs. Triplanar noncontrast CT scanning is acquired through the same anatomic range for attenuation correction, and image registration with scan parameters optimized to minimize radiation exposure to the patient. PET scintigraphy and CT datasets were fused and displayed on a workstation with multiplanar and projection display capability. PET/CT Findings: Head and neck soft tissues are unremarkable. There is no hypermetabolic prudencio uptake in the neck. There is mild skeletal muscle uptake in the posterior area of the neck. There is no abnormal hypermetabolic uptake in the chest. No abnormal hypermetabolic uptake is seen in the liver or spleen. There is no abnormal hypermetabolic uptake in the abdomen or pelvis. There are multiple hepatic and renal cysts as previously noted. There is mildly increased soft tissue uptake superficial to the left posterior iliac bone. This may be related to recent marrow aspiration procedure. Incidental findings also include left hip replacement and relatively low density of the blood pool compared to the myocardium consistent with anemia. No abnormal skeletal uptake. Impression: Negative PET scintigraphy. Electronically Signed by Bryan Mancia MD 10/12/2018 04:37 P
== END ==
LOC: M PLARAD 11:43
PROVIDERS: ATTEND Internal Medicine
DX: C84.49 Peripheral T-cell lymphoma, not elsewhere classified, extranodal and solid organ sites (principal)
CPT/HCPCS: 78815; A9552

== ENCOUNTER 2018-10-25 09:12 | Inpatient (IN) | payer MEDICARE, MEDICAID ==
[~2018-10-25] VITALS: Ht 180.3 cm; Wt 84.2 kg
[2018-10-25] MEDS: ENOXAPARIN 40 MG/0.4 ML SYRINGE (J1650) SC SCH (09:00)
[2018-10-25] MEDS ORDERED: ALBU8.5H INH (09:21)
[2018-10-25] MEDS ORDERED: CEFU1TAB22 PO (09:21)
[2018-10-25] MEDS ORDERED: NS 500 ML IV ONE (10:15)
[2018-10-25 11:00] LABS: INR 1.2; PROTHROMBIN TIME 14.9 SECONDS (11.8-14.0)
[2018-10-25 11:01] LABS: PARTIAL THROMBOPLASTIN TIME 29.6 SECONDS (25.0-38.4)
[2018-10-25 11:02] LABS: EOS % 0.2 % (0.0-3.0); HEMATOCRIT 11.7 % (42.0-52.0); LYMPH # 2.8 10^3/uL (1.5-4.5); LYMPH % 48.8 % (24.0-44.0); MEAN CORPUSCULAR HEMOGLOBIN 32.8 pg (27.0-33.0); MEAN CORPUSCULAR HGB CONC 32.5 g/dl (32.0-36.5); MEAN CORPUSCULAR VOLUME 100.9 fl (80.0-96.0); MONO # 0.8 10^3/uL (0.0-0.8); MONO % 13.1 % (0.0-5.0); NEUTROPHILS # 2.2 10^3/uL (1.8-7.7); NEUTROPHILS % 37.2 % (36.0-66.0); PLATELET COUNT, AUTOMATED 329 10^3/uL (150-450); RED BLOOD COUNT 1.16 10^6/uL (4.30-6.10); WHITE BLOOD COUNT 5.8 10^3/uL (4.0-10.0)
[2018-10-25 11:05] LABS: HEMOGLOBIN 3.8 g/dl (13.5-17.5)
[2018-10-25 11:06] LABS: BLOOD UREA NITROGEN 14 MG/DL (7-18); CALCIUM LEVEL 8.6 MG/DL (8.5-10.1); CARBON DIOXIDE LEVEL 25 MEQ/L (21-32); CHLORIDE LEVEL 109 MEQ/L (98-107); CREATININE FOR GFR 0.65 MG/DL (0.70-1.30); GLOMERULAR FILTRATION RATE > 60.0 (>60); GLUCOSE, FASTING 101 MG/DL (70-100); POTASSIUM SERUM 3.9 MEQ/L (3.5-5.1); SODIUM LEVEL 141 MEQ/L (136-145)
[2018-10-25] MEDS ORDERED: IBUP-1091 PO (12:11)
[2018-10-25] MEDS ORDERED: CYAN100049 PO (12:11)
[2018-10-25] MEDS ORDERED: OMEP20CA4 PO (12:11)
[2018-10-25] MEDS ORDERED: FOLI1TAB11 PO (12:11)
[2018-10-25 12:22] LABS: HEMATOCRIT 11.7 % (42.0-52.0)
[2018-10-25 12:50] LABS: PERCENT SATURATION 95.8 % (19.7-50.0)
[2018-10-25] MEDS: FOLIC ACID 1 MG TAB PO SCH (14:43)
[2018-10-25] MEDS: FUROSEMIDE 20 MG/2 ML VIAL (J1940) IV SCH ×2 (14:43→17:35)
[2018-10-25] MEDS ORDERED: ALBUTEROL 90 MCG/ACT 8GM HFA INHALER INH PRN (15:15)
[2018-10-25 16:00] VITALS: BP 110/56
--- NOTE | 2018-10-25 16:28 | HPEPDOC ---
[facility] Medical History & Physical Date of Admission Oct 25, 2018 Date of Service: Oct 25, 2018 History and Physical Oncologist: Dr.George Guerrier CHIEF COMPLAINT: Shortness of breath x 2 weeks HISTORY OF PRESENTING ILLNESS: 38 y/o male with past medical history significant for RA diagnosed 1998 s/p methotrexate until 2003, on prednisone and enbrel, on osteoporosis precaution, follows at [facility] , anemia s/p 4units rbc transfusion 08/2018, 08/2018 EGD: hiatal hernia , colonoscopy : nonbleeding internal hemorrhoids by Dr. Montague, heme negative stool,on folic acid and B12 supplements, chronic RLE ulcer managed by Dr. Monsalve, hepatic and renal cysts, 10/01/18 bone marrow biopsy: T cell lymphoma, PET scan 10/2018 negative presents to the ER with 2 week history of worsening sob, VILLANUEVA, unable to ambulate beyond 10 feet at home, fatigue, increased sleepiness, 11 lb weight loss from 200lbs to 189 lbs, de creased appetite, dizziness, lightheadedness when he gets up from a sitting to standing position. He slept all day yesterday due to weakness, and almost fell over when he bent down to clam picker his clothes in the closet. He denies hematemesis, bright red blood per rectum, black tarry stools, chest pain, pressure, tightness,heaviness, nausea, vomiting, abdominal pain, diarrhea, constipation, dysuria, urgency, frequency, flank pain, fever, chills, cough, hematemesis, lumps, or enlarged lymph nodes. He admits to generalized weakness, sleepiness, unable to "do anything." He feels like "I just ran a marathon,"after taking 4-5 steps. In the ER, he was found to have a hemoglobin on 3.8. 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 Bone marrow biopsy 09/2018 EGD Colonoscopy 08/2018 Dr. 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 REVIEW OF SYSTEMS: Constitutional: Reports: Malaise, Weakness, Fatigue; Denies: Chills, Fever, Night Sweats Eyes: Denies: Pain, Vision change ENT: Denies: Head Aches, Ear Pain, Dysphagia Skin: Denies: Rash, Lesions, Breakdown Pulmonary: Reports: Dyspnea; VILLANUEVA Denies: Cough, Pleuritic Chest Pain Cardiovascular: Denies: Chest Pain, Palpitations, Orthopnea, Paroxysmal Noc. Dyspnea, Edema Gastrointestinal: Denies: Nausea, Vomiting, Abdominal Pain, Diarrhea Genitourinary: Denies: Dysuria, Frequency, Incontinence, Retention Hematologic: Denies: Bruising, Bleeding Excessively Musculoskeletal: Reports: Joint Pain, Muscle Pain Neurological: Reports: Weakness PHYSICAL EXAMINATION: VITALS: pls see below General Exam: Awake, Alert, oriented x 3, (+) pallor, Cooperative, No Acute respiratory Distress, no use of accessory respiratory muscles Eye Exam: Positive: PERRLA, Conjunctiva & lids normal, EOMI; Negative: Sclera icteric, jaundice ENT Exam: Positive: Atraumatic, Mucous membr. dry/pink, Pharynx Normal Neck Exam: Positive: Supple; no cervical LAD Negative: JVD, thyromegaly Chest Exam: Positive: Clear to auscultation, Normal air movement Heart Exam: Positive: Rate Normal, Regular Rhythm, Normal S1, Normal S2; Negative: Murmurs, Rubs Telemetry: Positive: No significant arrhythmia Abdomen Exam: Positive: Normal bowel sounds, Soft; Negative: Tenderness, Hepatospenomegaly Extremity Exam: Positive: Normal pulses; Negative: Clubbing, Cyanosis, Edema Skin Exam: Positive: Lesion (5cmx 5cm chronic ulcer with clean base on the lateral aspect of right leg middle part with granulation tissue at the bottom. No necrosis or inflammation.) Neuro Exam: Positive: Normal Gait, Normal Speech, Cranial Nerves 3-12 NL, Reflexes 2+ LABORATORY DATA, IMAGING STUDIES, MICROBIOLOGY: PLS SEE BELOW Bone marrow biopsy 09/2018 left hip core, aspirate, flow cytometry, and cytogenetics: T-cell lymphoma: Normocellular marrow with few megakaryocyte clusters on biopsy and clot sections. Flow cytometry shows an abnormal T-cell population. T-cell PCR is positive for an abnormal proliferative process, confirming the diagnosis of T-cell lymphoma. KALYANI 2 mutation analysis is negative. 0-1+ iron staining. See [facility] report [id number]. 10/05/18 - 804 PET Scan 10/12/18: negative US Abdomen 09/2018 Clinical: Anemia. Technique: Real time garcia scale ultrasound examination using curved array transducer. Findings: Liver demonstrates scattered benign appearing cysts measuring up to 2.2 x 2.1 x 2.0 cm in the left lobe and 4.5 x 5.5 x 5.6 cm in the right lobe. No further obvious significant hepatic abnormality appreciated. Spleen is normal in contour and echogenicity measuring 15.2 x 9.2 x 4.7 cm without focal splenic lesion appreciated. The pancreas is limited in evaluation due to interposed bowel gas but visualized portions appear normal. Gallbladder is unremarkable and without gallstones, wall thickening, or pericholecystic fluid. No biliary ductal dilatation is appreciated and the common bile duct measures 5.9 mm diameter. The right kidney measures 14.0 x 7.3 x 8.5 cm and includes multiple cysts measuring up to 5.0 x 5.0 x 4.6 cm in the upper pole without hydronephrosis or obvious renal mass. Left kidney measures 13.0 x 5.7 x 6.0 cm and is normal in reniform shape and appearance without hydronephrosis, cystic or mass lesion. Visualized abdominal aorta normal measuring 2.6 cm maximal diameter. No ascites. Impression: 1. Hepatic and right renal cysts. 2. Spleen is upper limits of normal in size without focal abnormality. ASSESSMENT AND PLAN: 38 y/o male with past medical history significant for RA diagnosed 1998 s/p methotrexate until 2003, on prednisone and enbrel, on osteoporosis precaution, follows at [facility] , anemia s/p 4units rbc transfusion 08/2018, 08/2018 EGD: hiatal hernia , colonoscopy : nonbleeding internal hemorrhoids by Dr. Montague, heme negative stool,on folic acid and B12 supplements, chronic RLE ulcer managed by Dr. Monsalve, hepatic and renal cysts, 10/01/18 bone marrow biopsy: T cell lymphoma, PET scan 10/2018 negative presents to the ER with 2 week history of worsening sob, VILLANUEVA, unable to ambulate beyond 10 feet at home, fatigue, increased sleepiness, 11 lb weight loss from 200lbs to 189 lbs, decreased appetite, dizziness, lightheadedness when he gets up from a sitting to standing position. He slept all day yesterday due to weakness, and almost fell over when he bent down to clam picker his clothes in the closet. He denies hematemesis, bright red blood per rectum, black tarry stools, chest pain, pressure, tightness,heaviness, nausea, vomiting, abdominal pain, diarrhea, constipation, dysuria, urgency, frequency, flank pain, fever, chills, cough, hematemesis. He admits to generalized weakness, sleepiness, unable to "do anything." He feels like "I just ran a marathon,"after taking 4-5 steps. In the ER, he was found to have a hemoglobin on 3.8. Symptomatic Anemia -pt c/o VILLANUEVA, generalized weakness, dizziness and lightheadedness -admitted to PCU -transfused 4units rbc -cycled h&h and transfuse if recurrent symptoms or hgb>8. -defer to disability case manager for further evaluation T cell lymphoma -pt c/o 11 lb weight loss, fatigue, decreased appetite, increased sleepiness due to generalized weakness -no palpable cervical, or axillary LAD -no cutaneous lesions -defer to oncologist for treatment-CHOP -check htlv virus Macrocytic Anemia -B12, folate, methylmalonic acid -h/o methotrexate use for RA -on folic acid and B12 supplements Rheumatoid Arthritis -h/o RA-induced pericarditis -follows with a [employer] -s/p Methotrexate [id number] -currently on Enbrel and prednisone with osteoporosis precaution. Hepatic cysts and Renal cysts -outpt referral to nephrology -creatinine wnl Chronic Right LE ulcer -managed by Dr. Monsalve -recently diagnosed with T cell lymphoma -defer to oncology to determine if manifestation of lymphoma DVT prophylaxis: lovenox. Vital Signs Vital Signs Date Time Temp Pulse Resp B/P (MAP) Pulse Ox O2 Delivery O2 Flow Rate FiO2 10/25/18 09:44 Room Air 10/25/18 09:44 10/25/18 09:13 98.4 119 20 98 Laboratory Data Labs 24H Laboratory Tests 2 10/25/18 10:30: Immature Granulocyte % (Auto) 0.7, White Blood Count 5.8, Red Blood Count 1.16L, Hemoglobin 3.8*L, Hematocrit 11.7L, Mean Corpuscular Volume 100.9H, Mean Corpuscular Hemoglobin 32.8, Mean Corpuscular Hemoglobin Concent 32.5, Red Cell Distribution Width 27.8H, Platelet Count 329, Neutrophils (%) (Auto) 37.2, Lymphocytes (%) (Auto) 48.8H, Monocytes (%) (Auto) 13.1H, Eosinophils (%) (Auto) 0.2, Basophils (%) (Auto) 0.0, Neutrophils # (Auto) 2.2, Lymphocytes # (Auto) 2.8, Monocytes # (Auto) 0.8, Eosinophils # (Auto) 0.0, Basophils # (Auto) 0.0, Nucleated Red Blood Cells % (auto) 0.0, Prothrombin Time 14.9H, Prothromb Time International Ratio 1.20, Activated Partial Thromboplast Time 29.6, Anion Gap 7L, Glomerular Filtration Rate > 60.0, Blood Urea Nitrogen 14, Creatinine 0.65L, Sodium Level 141, Potassium Level 3.9, Chloride Level 109H, Carbon Dioxide Level 25, Calcium Level 8.6 CBC/BMP Laboratory Tests 10/25/18 10:30 Red Blood Count 1.16 L, Mean Corpuscular Volume 100.9 H, Mean Corpuscular Hemoglobin 32.8, Mean Corpuscular Hemoglobin Concent 32.5, Red Cell Distribution Width 27.8 H, Neutrophils (%) (Auto) 37.2, Lymphocytes (%) (Auto) 48.8 H, Monocytes (%) (Auto) 13.1 H, Eosinophils (%) (Auto) 0.2, Basophils (%) (Auto) 0.0, Neutrophils # (Auto) 2.2, Lymphocytes # (Auto) 2.8, Monocytes # (Auto) 0.8, Eosinophils # (Auto) 0.0, Basophils # (Auto) 0.0, Calcium Level 8.6 Home Medications Scheduled Alendronate Sodium (Alendronate Sodium) 70 Mg Tablet, 70 MG PO 1XWK TUESDAYS Cyanocobalamin (Vitamin B-12) (Vitamin B-12) 1,000 Mcg Tablet, 1,000 MCG PO QHS Etanercept (Enbrel) 50 Mg/Ml Inj, 50 MG SC 1XWK TUESDAYS Folic Acid (Folic Acid) 1 Mg Tablet, 1 MG PO DAILY Gabapentin (Gabapentin) 600 Mg Tablet, 600 MG PO BID Omeprazole (Omeprazole) 20 Mg Capsule.dr, 20 MG PO DAILY Prednisone (Prednisone) 10 Mg Tab, 10 MG PO BID cefUROXime axetil (Cefuroxime) 500 Mg Tablet, 500 MG PO Q12H FILLED 10/16/18 FOR 10 DAYS Scheduled PRN Albuterol Sulfate (Albuterol Sulfate Hfa) 8.5 Gm Hfa.aer.ad, 2 PUFFS INH QID PRN for SHORTNESS OF BREATH Ibuprofen (Ibuprofen) 200 Mg Tablet, 400 MG PO QID PRN for PAIN Allergies Coded Allergies: No Known Allergies (Unverified , 07/11/18) A-FIB/CHADSVASC A-FIB History Current/History of A-Fib/PAF?: No Current PO Anticoag Therapy: No JOSE ALEJANDRO RAWLS MD Oct 25, 2018 11:54
[2018-10-25 19:17] LABS: HEMATOCRIT 16.6 % (42.0-52.0)
[2018-10-25 19:22] LABS: HEMOGLOBIN 5.7 g/dl (13.5-17.5)
[2018-10-25 20:00] VITALS: BP 102/61
[2018-10-25] MEDS: GABAPENTIN 300 MG CAP PO SCH (20:23)
[2018-10-25] MEDS: predniSONE 10 MG TAB PO SCH (20:24)
[2018-10-25] MEDS ORDERED: CYANOCOBALAMIN 500 MCG TAB PO SCH ×2 (21:00)
[2018-10-25] MEDS ORDERED: MAALOX 30 ML SUSP *UDC PO ONE (21:00)
[2018-10-25 23:59] VITALS: BP 116/69
[2018-10-26 00:08] LABS: HEMATOCRIT 15.8 % (42.0-52.0)
[2018-10-26 00:11] LABS: HEMOGLOBIN 5.5 g/dl (13.5-17.5)
[2018-10-26] MEDS ORDERED: ACETAMINOPHEN TAB 650MG DOSE (2X325MG) PO PRN (01:15)
[2018-10-26 04:35] VITALS: BP 123/72
[2018-10-26 06:52] LABS: HEMATOCRIT 18.8 % (42.0-52.0)
[2018-10-26 06:54] LABS: HEMOGLOBIN 6.6 g/dl (13.5-17.5)
[2018-10-26] MEDS ORDERED: FUROSEMIDE 20 MG/2 ML VIAL (J1940) IV ONE (07:15)
[2018-10-26 08:00] VITALS: BP 127/70
[2018-10-26] MEDS: GABAPENTIN 300 MG CAP PO SCH (08:13)
[2018-10-26] MEDS: predniSONE 10 MG TAB PO SCH (08:13)
[2018-10-26] MEDS: FOLIC ACID 1 MG TAB PO SCH (08:13)
--- NOTE | 2018-10-26 08:40 | IPNPDOC ---
Date Seen The patient was seen on 10/26/18. Progress Note SUBJECTIVE: Denies lightheadedness, dizziness, sob, cp,pressure, tightness, near syncope. s/p 6units rbc with hgb 6 form [address] 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 OBJECTIVE: PHYSICAL EXAMINATION: VITALS: pls see below General Exam: Awake, Alert, oriented x 3, (+) pallor, Cooperative, No Acute respiratory Distress, no use of accessory respiratory muscles Eye Exam: Positive: PERRLA, Conjunctiva & lids normal, EOMI; Negative: Sclera icteric, jaundice ENT Exam: Positive: Atraumatic, Mucous membr. dry/pink, Pharynx Normal Neck Exam: Positive: Supple; no cervical LAD Negative: JVD, thyromegaly Chest Exam: Positive: Clear to auscultation, Normal air movement Heart Exam: Positive: Rate Normal, Regular Rhythm, Normal S1, Normal S2; Negative: Murmurs, Rubs Telemetry: Positive: No significant arrhythmia Abdomen Exam: Positive: Normal bowel sounds, Soft; Negative: Tenderness, Hepatospenomegaly Extremity Exam: Positive: Normal pulses; Negative: Clubbing, Cyanosis, Edema Skin Exam: Positive: Lesion (5cmx 5cm chronic ulcer with clean base on the lateral aspect of right leg middle part with granulation tissue at the bottom. No necrosis or inflammation.) Neuro Exam: Positive: Normal Gait, Normal Speech, Cranial Nerves 3-12 NL, Reflexes 2+ LABORATORY DATA, IMAGING STUDIES, MICROBIOLOGY: PLS SEE BELOW Bone marrow biopsy 09/2018 left hip core, aspirate, flow cytometry, and cytogenetics: T-cell lymphoma: Normocellular marrow with few megakaryocyte clusters on biopsy and clot s ections. Flow cytometry shows an abnormal T-cell population. T-cell PCR is positive for an abnormal proliferative process, confirming the diagnosis of T-cell lymphoma. KALYANI 2 mutation analysis is negative. 0-1+ iron staining. See [facility] report [id number]. 10/05/18 - 0805 PET Scan 10/12/18: negative US Abdomen 09/2018 Clinical: Anemia. Technique: Real time garcia scale ultrasound examination using curved array transducer. Findings: Liver demonstrates scattered benign appearing cysts measuring up to 2.2 x 2.1 x 2.0 cm in the left lobe and 4.5 x 5.5 x 5.6 cm in the right lobe. No further obvious significant hepatic abnormality appreciated. Spleen is normal in contour and echogenicity measuring 15.2 x 9.2 x 4.7 cm without focal splenic lesion appreciated. The pancreas is limited in evaluation due to interposed bowel gas but visualized portions appear normal. Gallbladder is unremarkable and without gallstones, wall thickening, or pericholecystic fluid. No biliary ductal dilatation is appreciated and the common bile duct measures 5.9 mm diameter. The right kidney measures 14.0 x 7.3 x 8.5 cm and includes multiple cysts measuring up to 5.0 x 5.0 x 4.6 cm in the upper pole without hydronephrosis or obvious renal mass. Left kidney measures 13.0 x 5.7 x 6.0 cm and is normal in reniform shape and appearance without hydronephrosis, cystic or mass lesion. Visualized abdominal aorta normal measuring 2.6 cm maximal diameter. No ascites. Impression: 1. Hepatic and right renal cysts. 2. Spleen is upper limits of normal in size without focal abnormality. ASSESSMENT AND PLAN: 38 y/o male with past medical history significant for RA diagnosed 1998 s/p methotrexate until 2003, on prednisone and enbrel, on osteoporosis precaution, follows at [facility] , anemia s/p 4units rbc transfusion 08/2018, 08/2018 EGD: hiatal hernia , colonoscopy : nonbleeding internal hemorrhoids by Dr. Montague, heme negative stool,on folic acid and B12 supplements, chronic RLE ulcer managed by Dr. Monsalve, hepatic and renal cysts, 10/01/18 bone marrow biopsy: T cell lymphoma, PET scan 10/2018 negative presents to the ER with 2 week history of worsening sob, VILLANUEVA, unable to ambulate beyond 10 feet at home, fatigue, increased sleepiness, 11 lb weight loss from 200lbs to 189 lbs, decreased appetite, dizziness, lightheadedness when he gets up from a sitting to standing position. He slept all day yesterday due to weakness, and almost fell over when he bent down to picker tender his clothes in the closet. He denies hematemesis, bright red blood per rectum, black tarry stools, chest pain, pressu re, tightness,heaviness, nausea, vomiting, abdominal pain, diarrhea, constipation, dysuria, urgency, frequency, flank pain, fever, chills, cough, hematemesis. He admits to generalized weakness, sleepiness, unable to "do anything." He feels like "I just ran a marathon,"after taking 4-5 steps. In the ER, he was found to have a hemoglobin on 3.8. Symptomatic Anemia -pt c/o VILLANUEVA, generalized weakness, dizziness and lightheadedness -admitted to PCU -transfused 4units rbc -cycled h&h and transfuse if recurrent symptoms or hgb>8. -defer to director of infection prevention for further evaluation T cell lymphoma -pt c/o 11 lb weight loss, fatigue, decreased appetite, increased sleepiness due to generalized weakness -no palpable cervical, or axillary LAD -no cutaneous lesions -defer to oncologist for treatment-[facility] -check htlv virus Macrocytic Anemia -B12, folate, methylmalonic acid -h/o methotrexate use for RA -on folic acid and B12 supplements Rheumatoid Arthritis -h/o RA-induced pericarditis -follows with a [employer] -s/p Methotrexate [id number] -currently on Enbrel and prednisone with osteoporosis precaution. Hepatic cysts and Renal cysts -outpt referral to nephrology -creatinine wnl Chronic Right LE ulcer -managed by Dr. Monsalve -recently diagnosed with T cell lymphoma -defer to oncology to determine if manifestation of lymphoma DVT prophylaxis: lovenox. VS, I&O, 24H, Fishbone Vital Signs/I&O Vital Signs Date Time Temp Pulse Resp B/P (MAP) Pulse Ox O2 Delivery O2 Flow Rate FiO2 10/26/18 04:35 98.7 66 18 123/72 (89) 97 10/25/18 14:00 Room Air I&O- Last 24 Hours up to 6 AM 10/26/18 06:00 Intake Total 2420 ml Output Total 2350 ml Balance 70 ml Laboratory Data 24H LABS Laboratory Tests 2 10/25/18 10:30: Immature Granulocyte % (Auto) 0.7, White Blood Count 5.8, Red Blood Count 1.16L, Hemoglobin 3.8*L, Hematocrit 11.7L, Mean Corpuscular Volume 100.9H, Mean Corpuscular Hemoglobin 32.8, Mean Corpuscular Hemoglobin Concent 32.5, Red Cell Distribution Width 27.8H, Platelet Count 329, Neutrophils (%) (Auto) 37.2, Lymphocytes (%) (Auto) 48.8H, Monocytes (%) (Auto) 13.1H, Eosinophils (%) (Auto) 0.2, Basophils (%) (Auto) 0.0, Neutrophils # (Auto) 2.2, Lymphocytes # (Auto) 2.8, Monocytes # (Auto) 0.8, Eosinophils # (Auto) 0.0, Basophils # (Auto) 0.0, Nucleated Red Blood Cells % (auto) 0.0, Prothrombin Time 14.9H, Prothromb Time International Ratio 1.20, Activated Partial Thromboplast Time 29.6, Anion Gap 7L, Glomerular Filtration Rate > 60.0, Blood Urea Nitrogen 14, Creatinine 0.65L, Sodium Level 141, Potassium Level 3.9, Chloride Level 109H, Carbon Dioxide Level 25, Calcium Level 8.6 10/25/18 12:12: Reticulocyte # (auto) 9.9L, Differential Slide Review Report, Peripheral Blood Smear Path Consult PERIPHERAL SMEAR, Percent Reticulocyte Count 1.2, Reticulocyte Hemoglobin Equivalent 41.8H, Haptoglobin 189, Iron Level 272H, Total Iron Binding Capacity 284, Transferrin % Saturation 95.8H, Ferritin 1097H, Lactate Dehydrogenase 227, Vitamin B12 Level 495, Red Blood Cell Folate 1758H 10/26/18 06:39: CBC/BMP Laboratory Tests 10/25/18 10:30 Red Blood Count 1.16 L, Mean Corpuscular Volume 100.9 H, Mean Corpuscular Hemoglobin 32.8, Mean Corpuscular Hemoglobin Concent 32.5, Red Cell Distribution Width 27.8 H, Neutrophils (%) (Auto) 37.2, Lymphocytes (%) (Auto) 48.8 H, Monocytes (%) (Auto) 13.1 H, Eosinophils (%) (Auto) 0.2, Basophils (%) (Auto) 0.0, Neutrophils # (Auto) 2.2, Lymphocytes # (Auto) 2.8, Monocytes # (Auto) 0.8, Eosinophils # (Auto) 0.0, Basophils # (Auto) 0.0, Calcium Level 8.6 10/25/18 12:12 10/25/18 18:26 10/25/18 23:53 10/26/18 06:39 JOSE ALEJANDRO RAWLS MD Oct 26, 2018 08:39
[2018-10-26] MEDS ORDERED: OMEPRAZOLE 20 MG CAP PO SCH (09:00)
[2018-10-26] MEDS: ENOXAPARIN 40 MG/0.4 ML SYRINGE (J1650) SC SCH (09:00)
[2018-10-26 12:15] LABS: HEMATOCRIT 25.5 % (42.0-52.0)
[2018-10-26] MEDS ORDERED: SLF 3 ML SYR IV PRN (12:30)
[2018-10-26 12:46] LABS: HEMOGLOBIN 8.9 g/dl (13.5-17.5)
[2018-10-26] MEDS ORDERED: VITA500C24 PO (13:17)
[2018-10-26] MEDS ORDERED: FERR325T3 PO (13:17)
--- NOTE | 2018-10-26 13:39 | DS.PDOC ---
Discharge Summary General Date of Admission Oct 25, 2018 at 11:32 Date of Discharge October 26, 2018 Discharge Summary INPATIENT CONSULTANTS: DR. SANDOVAL-HEMATOLOGY/ONCOLOGY DR. MONTAGUE-GASTROENTEROLOGY DISCHARGE DIAGNOSES: Symptomatic anemia requiring 9 units of rbc transfusion hiatal hernia nonbleeding internal hemorrhoids Macrocytic Anemia New diagnosis of T cell Lymphoma Hepatic Cysts Renal Cysts Chronic right LE ulcer Iron overload due to blood transfusion Rheumatoid Arthritis ?Psoriatic Arthritis DISCHARGE MEDICATIONS: PLS SEE BELOW DISCHARGE INSTRUCTIONS: Oncology-rx for T cell Lymphoma, and eval for anemia GI-capsule endoscopy for possible occult GI bleed PCP within 7days of discharge-to refer to nephrology for multiple renal cysts to rule out polycystic kidney disease HISTORY OF PRESENTING ILLNESS: 38 y/o male with past medical history significant for RA diagnosed 1998 s/p methotrexate until 2003, on prednisone and enbrel, on osteoporosis precaution, follows at [facility] , anemia s/p 4units rbc transfusion 08/2018, 08/2018 EGD: hiatal hernia , colonoscopy : nonbleeding internal hemorrhoids by Dr. Montague, heme negative stool,on folic acid and B12 supplements, chronic RLE ulcer managed by Dr. Monsalve, hepatic and renal cysts, 10/01/18 bone marrow biopsy: T cell lymphoma, PET scan 10/2018 negative presents to the ER with 2 week history of worsening sob, VILLANUEVA, unable to ambulate beyond 10 feet at home, fatigue, increased sleepiness, 11 lb weight loss from 200lbs to 189 lbs, decreased appetite, dizziness, lightheadedness when he gets up from a sitting to standing position. He slept all day yesterday due to weakness, and almost fell over when he bent down to sampler pickup his clothes in the closet. He denies hematemesis, bright red blood per rectum, black tarry stools, chest pain, pressure, tightness,heaviness, nausea, vomiting, abdominal pain, diarrhea, constipation, dysuria, urgency, frequency, flank pain, fever, chills, cough, hematemesis. He admits to generalized weakness, sleepiness, unable to "do anything." He feels like "I just ran a marathon,"after taking 4-5 steps. In the ER, he was found to have a hemoglobin on 3.8. HOSPITAL COURSE: Symptomatic Anemia -pt c/o VILLANUEVA, generalized weakness, dizziness and lightheadedness -admitted to PCU -transfused 9units rbc WITH increased hemoglobin from 3 to 9 -cycled h&h and transfused until hgb>9 -no signs of hemolytic anemia -no overt GI bleed -Dr. Sandoval , [facility], recommended repeating GI workup with EGD , colonoscopy -Dr. Montague, GI, recommended oupt capsule endoscopy since heme negative with negative EGD/Colonoscopy 08/2018. T cell lymphoma -pt c/o 11 lb weight loss, fatigue, decreased appetite, increased sleepiness due to generalized weakness -no palpable cervical, or axillary LAD -no cutaneous lesions -Per Dr. Sandoval, oncologist : no need for inpatient chemotherapy. followup as outpt. -checked htlv virus Macrocytic Anemia -B12, folate, methylmalonic acid -h/o methotrexate use for RA -on folic acid and B12 supplements Rheumatoid Arthritis -h/o RA-induced pericarditis -follows with a [employer] Director -s/p Methotrexate [id number] -currently on Enbrel and prednisone with osteoporosis precaution. Hepatic cysts and Renal cysts -outpt referral to nephrology -creatinine wnl Chronic Right LE ulcer -managed by Dr. Monsalve -recently diagnosed with T cell lymphoma -defer to oncology to determine if manifestation of lymphoma DVT prophylaxis: lovenox. DISCHARGE PHYSICAL EXAMINATION: VITALS: pls see below General Exam: Awake, Alert, oriented x 3, (-) pallor, Cooperative, No Acute respiratory Distress, no use of accessory respiratory muscles Eye Exam: Positive: PERRLA, Conjunctiva & lids normal, EOMI; Negative: Sclera icteric, jaundice ENT Exam: Positive: Atraumatic, Mucous membr. dry/pink, Pharynx Normal Neck Exam: Positive: Supple; no cervical LAD Negative: JVD, thyromegaly Chest Exam: Positive: Clear to auscultation, Normal air movement Heart Exam: Positive: Rate Normal, Regular Rhythm, Normal S1, Normal S2; Negative: Murmurs, Rubs Telemetry: Positive: No significant arrhythmia Abdomen Exam: Positive: Normal bowel sounds, Soft; Negative: Tenderness, Hepatospenomegaly Extremity Exam: Positive: Normal pulses; Negative: Clubbing, Cyanosis, Edema Skin Exam: Positive: Lesion (5cmx 5cm chronic ulcer with clean base on the lateral aspect of right leg middle part with granulation tissue at the bottom. No necrosis or inflammation.) Neuro Exam: Positive: Normal Gait, Normal Speech, Cranial Nerves 3-12 NL, Reflexes 2+ LABORATORY DATA, IMAGING STUDIES, MICROBIOLOGY: PLS SEE BELOW Bone marrow biopsy 09/2018 left hip core, aspirate, flow cytometry, and cytogenetics: T-cell lymphoma: Normocellular marrow with few megakaryocyte clusters on biopsy and clot sections. Flow cytometry shows an abnormal T-cell population. T-cell PCR is positive for an abnormal proliferative process, confirming the diagnosis of T-cell lymphoma. KALYANI 2 mutation analysis is negative. 0-1+ iron staining. See [facility] report [id number]. 10/05/18804 PET Scan 10/12/18: negative US Abdomen 09/2018 Clinical: Anemia. Technique: Real time garcia scale ultrasound examination using curved array transducer. Findings: Liver demonstrates scattered benign appearing cysts measuring up to 2.2 x 2.1 x 2.0 cm in the left lobe and 4.5 x 5.5 x 5.6 cm in the right lobe. No further obvious significant hepatic abnormality appreciated. Spleen is normal in contour and echogenicity measuring 15.2 x 9.2 x 4.7 cm without focal splenic lesion appreciated. The pancreas is limited in evaluation due to interposed bowel gas but visualized portions appear normal. Gallbladder is unremarkable and without gallstones, wall thickening, or pericholecystic fluid. No biliary ductal dilatation is appreciated and the common bile duct measures 5.9 mm diameter. The right kidney measures 14.0 x 7.3 x 8.5 cm and includes multiple cysts measuring up to 5.0 x 5.0 x 4.6 cm in the upper pole without hydronephrosis or obvious renal mass. Left kidney measures 13.0 x 5.7 x 6.0 cm and is normal in reniform shape and appearance without hydronephrosis, cystic or mass lesion. Visualized abdominal aorta normal measuring 2.6 cm maximal diameter. No ascites. Impression: 1. Hepatic and right renal cysts. 2. Spleen is upper limits of normal in size without focal abnormality. TIME SPENT ON DISCHARGE: 32 MINUTES Vital Signs/I&Os Vital Signs Date Time Temp Pulse Resp B/P (MAP) Pulse Ox O2 Delivery O2 Flow Rate FiO2 10/26/18 08:00 97.5 76 18 127/70 (89) 100 10/25/18 14:00 Room Air I&O- Last 24 Hours up to 6 AM 10/26/18 06:00 Intake Total 2420 ml Output Total 2350 ml Balance 70 ml Laboratory Data Labs 24H Laboratory Tests 2 10/26/18 06:39: 10/26/18 12:00: CBC/BMP Laboratory Tests 10/25/18 18:26 10/25/18 23:53 10/26/18 06:39 10/26/18 12:00 Discharge Medications Scheduled Alendronate Sodium (Alendronate Sodium) 70 Mg Tablet, 70 MG PO 1XWK, (Reported) TUESDAYS Cyanocobalamin (Vitamin B-12) (Vitamin B-12) 1,000 Mcg Tablet, 1,000 MCG PO QHS, (Reported) Etanercept (Enbrel) 50 Mg/Ml Inj, 50 MG SC 1XWK, (Reported) TUESDAYS Folic Acid (Folic Acid) 1 Mg Tablet, 1 MG PO DAILY, (Reported) Gabapentin (Gabapentin) 600 Mg Tablet, 600 MG PO BID, (Reported) Omeprazole (Omeprazole) 20 Mg Capsule.dr, 20 MG PO DAILY, (Reported) Prednisone (Prednisone) 10 Mg Tab, 10 MG PO BID, (Reported) cefUROXime axetil (Cefuroxime) 500 Mg Tablet, 500 MG PO Q12H, (Reported) FILLED 10/16/18 FOR 10 DAYS Scheduled PRN Albuterol Sulfate (Albuterol Sulfate Hfa) 8.5 Gm Hfa.aer.ad, 2 PUFFS INH QID PRN for SHORTNESS OF BREATH, (Reported) Allergies Coded Allergies: No Known Allergies (Unverified , 07/11/18) JOSE ALEJANDRO RAWLS MD Oct 26, 2018 13:33
[2018-10-26] MEDS ORDERED: SLF 3 ML SYR IV SCH (14:00)
[2018-10-26 16:37] LABS: HEMATOCRIT 26.1 % (42.0-52.0); HEMOGLOBIN 9.1 g/dl (13.5-17.5)
[2018-10-28 00:08] LABS: Methylmalonic Acid 96 nmol/L (0-378)
== END 2018-10-26 17:00 | disposition home or self-care (01) | DRG 841 ==
LOC: M ED 09:12 → M ED INP 11:32 → M PCU 14:25
PROVIDERS: ADMIT General Practice; ATTEND General Practice
PROC: 30233N1 Transfusion of Nonautologous Red Blood Cells into Peripheral Vein, Percutaneous Approach (ICD-10-PCS; principal; 2018-10-25)
DX: C85.90 Non-Hodgkin lymphoma, unspecified, unspecified site (principal); L97.919 Non-pressure chronic ulcer of unspecified part of right lower leg with unspecified severity; D53.9 Nutritional anemia, unspecified; K64.8 Other hemorrhoids; L40.50 Arthropathic psoriasis, unspecified; M06.9 Rheumatoid arthritis, unspecified; Z79.52 Long term (current) use of systemic steroids; K44.9 Diaphragmatic hernia without obstruction or gangrene; M81.0 Age-related osteoporosis without current pathological fracture; N28.1 Cyst of kidney, acquired; K76.89 Other specified diseases of liver; Z79.899 Other long term (current) drug therapy; Z96.642 Presence of left artificial hip joint

== ENCOUNTER 2018-11-22 12:35 | Outpatient (CLI) | payer MEDICARE, MEDICAID ==
[2018-11-22] VITALS (9 sets, daily range): BP systolic 110–137; BP diastolic 58–78
[~2018-11-22] VITALS: Ht 180.3 cm; Wt 86.9 kg
[~2018-11-22 12:35] MED LIST changes: +ACYC400T PO; +ALBU8.5H INH; +CEFU1TAB22 PO; +CYAN100049 PO; -ENBR50IN2 SC; +ETAN50SY SC; +IBUP-1091 PO; +OMEP20CA4 PO; +POTA1TAB14 PO; +PRED20TA PO; +VITA500C24 PO
[2018-11-29] MEDS ORDERED: OMEP20CA4 PO (14:14)
[2018-12-02] MEDS ORDERED: PRED20TA PO (11:09)
== END 2018-11-22 17:40 | disposition home or self-care (01) ==
LOC: M INFU 12:35
PROVIDERS: ATTEND Internal Medicine
DX: D64.9 Anemia, unspecified (principal); C91.51 Adult T-cell lymphoma/leukemia (HTLV-1-associated), in remission
CPT/HCPCS: 36415; 36430; 85027; 86850; 86900; 86901; 86920; G0463; P9040

== ENCOUNTER → 2019-01-03 | Outpatient (CLI) | payer MEDICARE, MEDICAID ==
[~2019-01-03] VITALS: Ht 180.3 cm; Wt 88.1 kg
[~2019-01-03] MED LIST changes: +ACETAMINOPHEN TAB 650MG DOSE (2X325MG) PO ONE; +EXJA500T PO; -IBUP-1091 PO; +IBUP-1720 PO; +ONDA8TAB7 PO; +PROC10TA4 PO; +[UNRECOGNIZED DRUG - CODE] PO; +diphenhydrAMINE 50 MG CAP PO ONE
[2019-01-03 17:30] VITALS: BP 116/70
[2019-01-03 20:55] VITALS: BP 104/64
== END ==
LOC: M INFU 16:46
PROVIDERS: ATTEND Internal Medicine Medical Oncology
DX: D64.9 Anemia, unspecified (principal)
CPT/HCPCS: 36415; 36430; 82728; 83550; 85027; 86850; 86900; 86901; 86920; P9016

== ENCOUNTER → 2019-01-11 | Outpatient (CLI) | payer MEDICARE, MEDICAID ==
[~2019-01-11] VITALS: Ht 180.3 cm; Wt 92.1 kg
[~2019-01-11] MED LIST changes: -ACETAMINOPHEN TAB 650MG DOSE (2X325MG) PO ONE; +ACETAMINOPHEN TAB 650MG DOSE (2X325MG) PO SCH; +diphenhydrAMINE 25 MG CAP PO SCH; -diphenhydrAMINE 50 MG CAP PO ONE
[2019-01-11 13:30] VITALS: BP 104/55
[2019-01-11 18:00] VITALS: BP 120/75
== END ==
LOC: M INFU 13:29
PROVIDERS: ATTEND Internal Medicine Medical Oncology
DX: C91.50 Adult T-cell lymphoma/leukemia (HTLV-1-associated) not having achieved remission (principal)
CPT/HCPCS: 36415; 36430; 85027; 86850; 86900; 86901; 86920; J9260; P9016

== ENCOUNTER 2019-02-01 09:55 | Outpatient (CLI) | payer MEDICARE, MEDICAID ==
[~2019-02-01] VITALS: Ht 180.3 cm; Wt 92.5 kg
[2019-02-01] VITALS (8 sets, daily range): BP systolic 103–140; BP diastolic 57–82
[~2019-02-01 09:55] MED LIST changes: -ACETAMINOPHEN TAB 650MG DOSE (2X325MG) PO SCH; +IBUP80TA; +JADE1TAB3 PO; +JADENU; +TALT80IN5 SC; -diphenhydrAMINE 25 MG CAP PO SCH
[2019-02-01] MEDS ORDERED: ACETAMINOPHEN TAB 650MG DOSE (2X325MG) PO ONE (10:45)
[2019-02-01] MEDS ORDERED: diphenhydrAMINE 50 MG CAP PO ONE (10:45)
[2019-02-14] MEDS ORDERED: GABA600T4 PO (09:35)
== END 2019-02-01 14:55 | disposition home or self-care (01) ==
LOC: M INFU 09:55
PROVIDERS: ATTEND Internal Medicine Medical Oncology
DX: D64.9 Anemia, unspecified (principal)
CPT/HCPCS: 36430; 96401; J9260; P9016

== ENCOUNTER 2019-02-08 12:25 | Outpatient (CLI) | payer MEDICARE, MEDICAID ==
[~2019-02-08] VITALS: Ht 180.3 cm; Wt 90.0 kg
[2019-02-08] MEDS ORDERED: ACETAMINOPHEN TAB 650MG DOSE (2X325MG) PO ONE (13:00)
[2019-02-08] MEDS ORDERED: diphenhydrAMINE 50 MG CAP PO ONE (13:00)
[2019-02-08 13:20] VITALS: BP 112/83
[2019-02-08 13:35] VITALS: BP 123/75
[2019-02-08 14:35] VITALS: BP 122/71
[2019-02-08 15:09] VITALS: BP 115/79
[2019-02-08 15:27] VITALS: BP 123/72
[2019-02-08] MEDS ORDERED: PRED10TA2 PO (15:44)
[2019-02-08 16:27] VITALS: BP 123/88
== END 2019-02-08 17:00 | disposition home or self-care (01) ==
LOC: M INFU 12:25
PROVIDERS: ATTEND Nurse Practitioner Family
DX: C91.50 Adult T-cell lymphoma/leukemia (HTLV-1-associated) not having achieved remission (principal); D64.9 Anemia, unspecified; Z79.899 Other long term (current) drug therapy
CPT/HCPCS: 36415; 36430; 73090; 73130; 85027; 86850; 86900; 86901; 86920; 96401; G0463; J9260; P9016

== ENCOUNTER → 2019-02-08 | Outpatient (CLI) | payer MEDICARE, MEDICAID ==
--- NOTE | 2019-02-08 11:01 | REP ---
RIGHT HAND SERIES: Four views. HISTORY: Pain and swelling after trauma. FINDINGS: The patient is status post radiocarpal wrist fusion. There is a dorsal fixation plate anchored on either side of the radiocarpal articulation with screws in the proximal end of the 3rd metacarpal and in the distal radius. There are metal fatigue fractures in two of the screws in the 2nd metacarpal. There is radiolucency surrounding the distal end of the plate in the 2nd metacarpal consistent with loosening and motion. No acute fracture is visible. There is chronic ulnar subluxation of the first metacarpophalangeal joint. There is chronic subluxation of the first metacarpocarpal articulation. The greater multangular appears to have been resected. 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 Most of the carpal articulations are fused. IMPRESSION: No acute fracture. Extensive postsurgical changes with fusion plating across the wrist. There is evidence of loosening at the fusion plate anchors site in the proximal 3rd metacarpal. Chronic subluxation 1st MCP and chronic dislocation 5th MCP articulations. Electronically Signed by Bryan Mancia MD 02/08/2019 11:35 A
--- NOTE | 2019-02-08 11:03 | REP ---
Right forearm: Three views. History: Pain and swelling post trauma. Findings: Three views right forearm are presented. There is a screw plate fusion arthrodesis across the wrist with fusion of the carpal bones. Evidence of loosening and metal fatigue fractures at the distal end of the plate as described in the wrist radiographs. No acute radial or ulnar fracture seen. There is some soft tissue swelling dorsally at the forearm. Impression: Extensive postoperative changes. No acute fracture seen. See wrist report. Electronically Signed by Bryan Mancia MD 02/08/2019 10:54 A
== END ==
LOC: M LAB 10:24
PROVIDERS: ATTEND Internal Medicine Medical Oncology
DX: C85.90 Non-Hodgkin lymphoma, unspecified, unspecified site (principal)

== ENCOUNTER 2019-02-21 10:52 | Outpatient (CLI) | payer MEDICARE, MEDICAID ==
[~2019-02-21] VITALS: Ht 180.3 cm; Wt 92.5 kg
[2019-02-21] VITALS (10 sets, daily range): BP systolic 103–129; BP diastolic 53–89
[2019-02-21] MEDS ORDERED: diphenhydrAMINE 50 MG CAP PO ONE (12:00)
[2019-02-21] MEDS ORDERED: ACETAMINOPHEN TAB 650MG DOSE (2X325MG) PO ONE (12:00)
== END 2019-02-21 16:45 | disposition home or self-care (01) ==
LOC: M INFU 10:52
PROVIDERS: ATTEND Nurse Practitioner Family
DX: D64.9 Anemia, unspecified (principal)
CPT/HCPCS: 36415; 36430; 85027; 86850; 86900; 86901; 86920; P9016

== ENCOUNTER 2019-02-28 10:52 | Outpatient (CLI) | payer MEDICARE, MEDICAID ==
[~2019-02-28] VITALS: Ht 185.4 cm; Wt 89.3 kg
[~2019-02-28 10:52] MED LIST changes: +ACETAMINOPHEN TAB 650MG DOSE (2X325MG) PO SCH
[2019-02-28 11:24] VITALS: BP 127/77
[2019-02-28] MEDS ORDERED: diphenhydrAMINE 50 MG CAP PO ONE (11:30)
[2019-02-28 16:30] VITALS: BP 136/80
== END 2019-02-28 16:30 | disposition home or self-care (01) ==
LOC: M INFU 10:52
PROVIDERS: ATTEND Internal Medicine Medical Oncology
DX: C91.50 Adult T-cell lymphoma/leukemia (HTLV-1-associated) not having achieved remission (principal)
CPT/HCPCS: 36415; 36430; 85027; 86850; 86900; 86901; 86920; P9016

== ENCOUNTER 2019-03-08 12:45 | Emergency (ER) | payer MEDICARE, MEDICAID ==
[~2019-03-08 12:45] MED LIST changes: -ACETAMINOPHEN TAB 650MG DOSE (2X325MG) PO SCH; -IBUP80TA; +IBUP80TA PO; +OMEP-172 PO; -OMEP20CA4 PO
[2019-03-08] MEDS ORDERED: JADE1TAB3 PO (13:38)
[2019-03-08] MEDS ORDERED: PROC20004 SC (13:38)
[2019-03-08] MEDS ORDERED: FOLI0.4T PO (13:38)
--- NOTE | 2019-03-08 15:16 | REP ---
Left lower extremity Duplex Doppler venous ultrasound: Real time compression and duplex Doppler interrogation of the left lower extremity deep venous system is performed. The left common femoral, superficial femoral and popliteal veins are fully compressible with transducer pressure and demonstrate normal spontaneous and phasic flow, without evidence of deep venous thrombosis. Impression: No evidence of deep venous thrombosis of the left lower extremity femoral popliteal venous system. Electronically Signed by Ag Gong MD 03/08/2019 03:08 P
[2019-03-08] MEDS ORDERED: KEFL500C17 PO (15:42)
[2019-03-08] MEDS ORDERED: ceFAZolin SOD 2 GM in IV 1 EA IV ONE (15:45)
[2019-03-08 17:31] VITALS: BP 145/89
== END 2019-03-08 17:25 | disposition home or self-care (01) ==
LOC: M ED 12:45
DX: L03.116 Cellulitis of left lower limb (principal); M19.90 Unspecified osteoarthritis, unspecified site; Z79.899 Other long term (current) drug therapy; Z79.52 Long term (current) use of systemic steroids
CPT/HCPCS: 36415; 80047; 85027; 85652; 86140; 93971; 96365; 99284; G0463; J0690; J9260

== ENCOUNTER 2019-03-14 11:03 | Outpatient (CLI) | payer MEDICARE, MEDICAID ==
[2019-03-14] VITALS (8 sets, daily range): BP systolic 112–123; BP diastolic 59–78
[~2019-03-14] VITALS: Ht 180.3 cm; Wt 90.0 kg
[~2019-03-14 11:03] MED LIST changes: +ACETAMINOPHEN TAB 650MG DOSE (2X325MG) PO SCH; +FOLI0.4T PO; +IBUP80TA; -IBUP80TA PO; +KEFL500C17 PO; +PROC20004 SC; +diphenhydrAMINE 25 MG CAP PO SCH
== END 2019-03-14 15:40 | disposition home or self-care (01) ==
LOC: M INFU 11:03
PROVIDERS: ATTEND Internal Medicine Hematology
DX: D64.9 Anemia, unspecified (principal)
CPT/HCPCS: 36415; 36430; 85027; 86850; 86900; 86901; 86920; J9260; P9016

== ENCOUNTER 2019-03-17 03:53 | Inpatient (IN) | payer MEDICARE, MEDICAID ==
[~2019-03-17] VITALS: Ht 180.3 cm; Wt 90.9 kg
[~2019-03-17 03:53] MED LIST changes: -ACETAMINOPHEN TAB 650MG DOSE (2X325MG) PO SCH; -IBUP80TA; +IBUP80TA PO; -diphenhydrAMINE 25 MG CAP PO SCH
[2019-03-17 04:54] LABS: BASO % 0.4 % (0.0-1.0); EOS # 0.1 10^3/uL (0.0-0.5); EOS % 0.5 % (0.0-3.0); LYMPH % 18.6 % (24.0-44.0); MEAN CORPUSCULAR HEMOGLOBIN 28.7 pg (27.0-33.0); MEAN CORPUSCULAR HGB CONC 33.3 g/dl (32.0-36.5); MONO # 0.8 10^3/uL (0.0-0.8); NEUTROPHILS # 7.7 10^3/uL (1.5-8.5); NEUTROPHILS % 72.1 % (36.0-66.0); PLATELET COUNT, AUTOMATED 405 10^3/uL (150-450); RED BLOOD COUNT 2.79 10^6/uL (4.30-6.10); WHITE BLOOD COUNT 10.7 10^3/uL (4.0-10.0)
[2019-03-17 05:20] LABS: ALBUMIN 3.3 GM/DL (3.2-5.2); ALT/SGPT 120 U/L (12-78); BILIRUBIN,DIRECT 0.1 MG/DL (0.0-0.2); BILIRUBIN,TOTAL 0.4 MG/DL (0.2-1.0); BLOOD UREA NITROGEN 17 MG/DL (7-18); C REACTIVE PROTEIN QUANTITATIV 5.91 MG/DL (0.00-0.30); CALCIUM LEVEL 8.9 MG/DL (8.5-10.1); CARBON DIOXIDE LEVEL 27 MEQ/L (21-32); CHLORIDE LEVEL 101 MEQ/L (98-107); CREATININE FOR GFR 0.63 MG/DL (0.70-1.30); GLOMERULAR FILTRATION RATE > 60.0 (>60); GLUCOSE, FASTING 98 MG/DL (70-100); POTASSIUM SERUM 4.4 MEQ/L (3.5-5.1); SODIUM LEVEL 136 MEQ/L (136-145); TOTAL PROTEIN 6.8 GM/DL (6.4-8.2)
[2019-03-17] MEDS ORDERED: CEFTAROLINE FOSAMIL 600 MG in D5W MINI-BAG PLUS 50 ML IV ONE (06:45)
[2019-03-17] MEDS ORDERED: MORPHINE 4 MG/ML 1ML VIAL/SYRINGE (J2270) IV ONE (07:00)
[2019-03-17] MEDS ORDERED: METH25IN12 SC (07:11)
[2019-03-17] MEDS ORDERED: CEPH500C PO (07:14)
[2019-03-17] MEDS ORDERED: ACETAMINOPHEN TAB 650MG DOSE (2X325MG) PO PRN (07:30)
[2019-03-17] MEDS ORDERED: FUROSEMIDE 100 MG/10 ML VIAL (J1940) IV ONE (11:00)
[2019-03-17] MEDS ORDERED: KETOROLAC 30 MG/ML VIAL (J1885) IV ONE (11:00)
[2019-03-17] MEDS ORDERED: NALOXONE INJ 0.4 MG/1 ML VIAL (J2310) IV PRN (11:15)
[2019-03-17] MEDS ORDERED: PERCOCET 5MG/325MG TAB PO PRN (11:15)
[2019-03-17] MEDS ORDERED: PERCOCET 5MG/325MG TAB PO ONE (11:15)
--- NOTE | 2019-03-17 11:49 | REP ---
Left lower extremity Duplex Doppler venous ultrasound: Real time compression and duplex Doppler interrogation of the left lower extremity deep venous system is performed. The left common femoral, superficial femoral and popliteal veins are fully compressible with transducer pressure and demonstrate normal spontaneous and phasic flow, without evidence of deep venous thrombosis. Impression: No evidence of deep venous thrombosis of the left lower extremity femoral popliteal venous system. Electronically Signed by gA Gong MD 03/17/2019 11:41 A
[2019-03-17] MEDS: predniSONE 10 MG TAB PO SCH ×2 (11:51→20:25)
[2019-03-17] MEDS: FOLIC ACID 1 MG TAB PO SCH (11:51)
[2019-03-17] MEDS: OMEPRAZOLE 20 MG CAP PO SCH ×2 (11:51→20:25)
[2019-03-17] MEDS: ENOXAPARIN 40 MG/0.4 ML SYRINGE (J1650) SC SCH (11:52)
[2019-03-17] MEDS: ONDANSETRON 4 MG TAB (S0181) PO PRN (11:53)
[2019-03-17] MEDS ORDERED: KETOROLAC 30 MG/ML VIAL (J1885) IV SCH (12:00)
[2019-03-17] MEDS ORDERED: metOLazone 5 MG TAB PO ONE (13:00)
[2019-03-17 14:09] VITALS: BP 108/78
[2019-03-17 14:10] VITALS: BP 108/78
[2019-03-17] MEDS: VANICREAM MOISTURIZING SKIN CREAM 113GM TUBE TOP SCH ×2 (15:00→20:25)
[2019-03-17] MEDS: CEFTAROLINE FOSAMIL 600 MG in D5W MINI-BAG PLUS 50 ML IV SCH (18:13)
[2019-03-17] MEDS: KETOROLAC 30 MG/ML VIAL (J1885) IV SCH (20:24)
[2019-03-17] MEDS: CYANOCOBALAMIN 500 MCG TAB PO SCH (20:25)
[2019-03-17 22:00] VITALS: BP 104/78
[2019-03-18] VITALS (11 sets, daily range): BP systolic 96–118; BP diastolic 53–80
[2019-03-18] MEDS: KETOROLAC 30 MG/ML VIAL (J1885) IV SCH ×3 (05:07→21:10)
[2019-03-18] MEDS: CEFTAROLINE FOSAMIL 600 MG in D5W MINI-BAG PLUS 50 ML IV SCH ×2 (05:33→18:30)
[2019-03-18] MEDS: ONDANSETRON 4 MG TAB (S0181) PO PRN ×2 (06:15→21:09)
[2019-03-18 07:09] LABS: HEMATOCRIT 23.4 % (42.0-52.0); HEMOGLOBIN 7.7 g/dl (13.5-17.5); MEAN CORPUSCULAR HEMOGLOBIN 28.6 pg (27.0-33.0); MEAN CORPUSCULAR HGB CONC 32.9 g/dl (32.0-36.5); PLATELET COUNT, AUTOMATED 380 10^3/uL (150-450); RED BLOOD COUNT 2.69 10^6/uL (4.30-6.10); WHITE BLOOD COUNT 9.4 10^3/uL (4.0-10.0)
[2019-03-18 07:34] LABS: BLOOD UREA NITROGEN 18 MG/DL (7-18); CALCIUM LEVEL 8.8 MG/DL (8.5-10.1); CARBON DIOXIDE LEVEL 30 MEQ/L (21-32); CHLORIDE LEVEL 98 MEQ/L (98-107); CREATININE FOR GFR 0.72 MG/DL (0.70-1.30); GLOMERULAR FILTRATION RATE > 60.0 (>60); GLUCOSE, FASTING 101 MG/DL (70-100); POTASSIUM SERUM 3.6 MEQ/L (3.5-5.1); SODIUM LEVEL 138 MEQ/L (136-145)
[2019-03-18] MEDS: predniSONE 10 MG TAB PO SCH ×2 (08:28→21:09)
[2019-03-18] MEDS: FOLIC ACID 1 MG TAB PO SCH (08:28)
[2019-03-18] MEDS: ENOXAPARIN 40 MG/0.4 ML SYRINGE (J1650) SC SCH (08:28)
[2019-03-18] MEDS: OMEPRAZOLE 20 MG CAP PO SCH ×2 (08:28→21:09)
[2019-03-18] MEDS: VANICREAM MOISTURIZING SKIN CREAM 113GM TUBE TOP SCH ×2 (08:29→21:11)
--- NOTE | 2019-03-18 10:14 | HPE ---
DATE OF ADMISSION: 03/17/2019 CHIEF COMPLAINT: Left lower extremity swelling pain and redness. Difficulty ambulating. 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 Patient was seen in the emergency room when he was evaluated for deep venous thrombosis (DVT) which was negative and subsequently discharged home. He then presents today after his blood transfusion on Wednesday with worsening pain and edema with stabbing stinging pain rating 10/10, very painful, difficult to bend at the knee and could not do anything due to severe arthritis. It all worsened last Wednesday without fever or chills. Worse when he stands or walks around and when he tries to bend at the knee. He says that the lower extremity edema and pain goes up his leg up to the knee, worse when he stands up, feels pressure-like. He has been treated with antibiotics for two days without improvement and has taken extra tablets of gabapentin and Tylenol which he cannot quantify. He then represents with increasing pain and admitted for lower extremity cellulitis. Venous Doppler was negative for DVT. Patient was afebrile. White count of 10.7. CRP of 5.9. PAST MEDICAL HISTORY: Rheumatoid arthritis. Psoriatic arthritis. T-cell LGL leukemia. Blood transfusion dependent on weekly subcutaneous methotrexate and chronic prednisone. ALLERGIES: No known drug allergies. PAST SURGICAL HISTORY: Right wrist fusion and tendon transfer left hip 2006. FAMILY HISTORY: Father with cerebral infarction. Mother alive. One brother, two sisters. SOCIAL HISTORY: Less than a half pack a day since age of 16. No alcohol use. Patient previously smoked marijuana but none currently. Healthcare proxy is mother. . Her name is Radha. FULL CODE. Patient lives alone. No significant other. No children. Finished high school. HOME MEDICATIONS: - cephalexin 500 by mouth every 8 hours - gabapentin 600 three times a day as needed for pain - ibuprofen 800 mg three times a day - prednisone 10 mg twice a day - deferasirox (Jadenu) 360 four tablets every a.m. - Procrit folic acid one tablet daily - methotrexate 0.8 weekly REVIEW OF SYSTEMS: Per HPI. 12-point system otherwise negative. PHYSICAL EXAMINATION: Temperature 98.2, pulse 78, respiratory 16, blood pressure is 108/78, 95% on room air. GENERAL: Appears his stated age, awake, alert, oriented to person, place and time. LUNGS: Clear. No wheezing or rales. HEART: S1, S2, sinus rhythm. ABDOMEN: Obese, soft, nontender, nondistended. EXTREMITIES: Left lower extremity has 3+ pitting edema to the mid thigh. Signs of significant tenderness, erythema about 2 cm below the knee. Limited range of motion due to severe pain. Unable to flex and extend without inducing pain. Right extremity: No pitting edema. Dorsalis pedis, posterior tibialis was noted bilateral lower extremities. LABORATORY DATA: White count 10.7, hemoglobin 8, hematocrit 24, platelet count 405. Sodium 136, potassium 4.4, chloride 101, bicarbonate 27, BUN 17, creatinine 0.63. Glucose 98, lactic acid 1.2, calcium 8.9, t-bilirubin 0.4, direct bilirubin 0.1. AST 41, ALT 120, alkaline phosphatase 157. CRP 5.92, total protein 6, albumin 3.3. Blood culture two sets are negative. IMAGING STUDIES: Venous Doppler negative. ASSESSMENT AND PLAN: 38-year-old male with history of rheumatoid arthritis. T-cell LGL leukemia, blood transfusion dependence, psoriatic arthritis presents with two week history of worsening left lower extremity edema, now erythematous, unable to ambulate secondary to cellulitis. IMPRESSION: 1. Left lower extremity cellulitis. Currently on IV ceftaroline. Patient is given Lasix for comfort. 2. History of T-cell LGL leukemia, transfusion dependent. Currently with hemoglobin of 8. No signs of any GI bleed or active bleeding. Defer to outpatient followup with his oncologist. 3. Rheumatoid arthritis. Continue on weekly methotrexate and prednisone. 4. Psoriatic arthritis. No acute flare up at this time. 5. DVT prophylaxis. Lovenox subcutaneous daily. MTDD
[2019-03-18] MEDS ORDERED: diphenhydrAMINE 50 MG CAP PO ONE (12:00)
[2019-03-18] MEDS ORDERED: ACETAMINOPHEN 500 MG TAB PO ONE (12:00)
--- NOTE | 2019-03-18 16:08 | IPN ---
DATE: 03/18/2019 The patient says that he has 0 out of 10 pain, left lower extremity has no erythema, swelling has gone down to 1+ pitting. The patient denies dizziness, lightheadedness when he gets up, no pain with ambulation. No gastrointestinal bleed. Denies hematemesis, bright red blood per rectum, black tarry stools. The patient says that he gets transfused blood every week by his oncologist and he is on intravenous iron supplement and Procrit. PHYSICAL EXAMINATION: VITAL SIGNS: Temperature 98.3, pulse 78, respiratory rate 18, blood pressure 97/64, 95% on room air. Awake, alert, oriented times three. Answering questions appropriately. Slight pallor. No icterus or jaundice. Moist mucous membranes. LUNGS: Clear to auscultation bilaterally. Air entry is equal. HEART: S1, S2. Sinus rhythm. No murmurs, rubs or gallops. ABDOMEN: Soft, nontender, nondistended. EXTREMITIES: Left lower extremity has no erythema, still has 1+ pitting edema, improved from yesterday with 3+ edema yesterday. LABORATORY DATA: White count 9.4, hemoglobin 7.7, hematocrit 23, platelet count 380. Sodium 138, potassium 3.6, chloride 98, bicarbonate 30, BUN 18, creatinine 0.72, glucose of 101. Two sets of blood cultures are negative. 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 CURRENT ISSUES: 1. Left lower extremity cellulitis. Continue on IV ceftaroline. The patient has no erythema and may be discharged home on oral antibiotic in the morning. The patient had been given IV Lasix with a significant improvement in the erythema, left lower extremity to be elevated when the patient is sitting or supine. Outpatient followup with his oncologist. The patient has no deep vein thrombosis (DVT) on Doppler ultrasound. 2. History of T cell LGL leukemia.. Transfusion dependent. Hemoglobin is 7.7. We will transfuse 2 units today. The patient receives 2 units red blood cell transfusion every Wednesday and usually premedicated with Tylenol and Benadryl. 3. Rheumatoid arthritis. On weekly methotrexate and prednisone. 4. Psoriatic arthritis. No acute flare up at this time. 5. Deep vein thrombosis (DVT) prophylaxis with subcutaneous Lovenox. Discharge in the morning. MTDD
[2019-03-18 19:01] LABS: HEMATOCRIT 32.1 % (42.0-52.0); HEMOGLOBIN 10.2 g/dl (13.5-17.5)
[2019-03-18] MEDS: CYANOCOBALAMIN 500 MCG TAB PO SCH (21:09)
[2019-03-19] MEDS: KETOROLAC 30 MG/ML VIAL (J1885) IV SCH (04:15)
[2019-03-19] MEDS: CEFTAROLINE FOSAMIL 600 MG in D5W MINI-BAG PLUS 50 ML IV SCH (05:35)
[2019-03-19] MEDS: ONDANSETRON 4 MG TAB (S0181) PO PRN (05:44)
[2019-03-19 06:58] LABS: HEMATOCRIT 27.4 % (42.0-52.0); HEMOGLOBIN 9.3 g/dl (13.5-17.5); MEAN CORPUSCULAR HGB CONC 33.9 g/dl (32.0-36.5); MEAN CORPUSCULAR VOLUME 85.4 fl (80.0-96.0); PLATELET COUNT, AUTOMATED 353 10^3/uL (150-450); RED BLOOD COUNT 3.21 10^6/uL (4.30-6.10); WHITE BLOOD COUNT 8.3 10^3/uL (4.0-10.0)
[2019-03-19 07:25] LABS: BLOOD UREA NITROGEN 19 MG/DL (7-18); CALCIUM LEVEL 8.7 MG/DL (8.5-10.1); CARBON DIOXIDE LEVEL 29 MEQ/L (21-32); CHLORIDE LEVEL 101 MEQ/L (98-107); CREATININE FOR GFR 0.74 MG/DL (0.70-1.30); GLOMERULAR FILTRATION RATE > 60.0 (>60); GLUCOSE, FASTING 118 MG/DL (70-100); POTASSIUM SERUM 3.7 MEQ/L (3.5-5.1); SODIUM LEVEL 138 MEQ/L (136-145)
[2019-03-19] MEDS ORDERED: DOXY-350 PO (07:26)
[2019-03-19] MEDS ORDERED: JADENU 360 MG PO SCH (07:30)
[2019-03-19] MEDS ORDERED: BACITAB PO (07:31)
[2019-03-19] MEDS ORDERED: AUGM875T28 PO (07:31)
[2019-03-19] MEDS: ENOXAPARIN 40 MG/0.4 ML SYRINGE (J1650) SC SCH (08:10)
[2019-03-19] MEDS: predniSONE 10 MG TAB PO SCH (08:10)
[2019-03-19] MEDS: OMEPRAZOLE 20 MG CAP PO SCH (08:10)
[2019-03-19] MEDS: FOLIC ACID 1 MG TAB PO SCH (08:10)
[2019-03-19] MEDS: VANICREAM MOISTURIZING SKIN CREAM 113GM TUBE TOP SCH (08:11)
--- NOTE | 2019-03-20 19:48 | DSES ---
DATE OF ADMISSION: 03/17/2019 DATE OF DISCHARGE: 03/19/2019 PRIMARY DISCHARGE DIAGNOSES: 1. Left lower extremity cellulitis. 2. History of rheumatoid arthritis. 3. Psoriatic arthritis. 4. 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 5. Anemia requiring blood transfusion. 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 The patient was seen at the ER on 03/08/2019, was given a course of Keflex, completed 10 days' worth without any improvement with 3+ edema on presentation to the ER. Dopplers were negative for deep vein thrombosis (DVT). He was given IV Lasix and Zaroxolyn with significant decrease to 1+ pitting edema on discharge and outpatient of 1.4 liters on the first night and two liters on the second day. The patient was given intravenous ceftaroline with white count decreasing from 10.7 to 8.3 on discharge. Blood cultures remain negative. C-reactive protein (CRP) on admission was 5.9. He was found to be severely anemic with hemoglobin of 7.7, was due for blood transfusion and was given two units of red blood cells (RBCs) after premedication with Tylenol and Benadryl. The patient's hemoglobin increased to 10.2 and hematocrit of 32.1. The patient otherwise denied any chest pain, pressure, tightness, shortness of breath, or lightheadedness. Denied any bright red blood per rectum, melena or black tarry stools and was subsequently discharged in stable condition. LABORATORY DATA ON DISCHARGE: White count 8.3, hemoglobin 9.3, hematocrit 27, platelet count 353. Sodium 138, potassium 3.7, chloride 101, bicarbonate 29, BUN 19, creatinine 0.74, glucose of 118. IMAGING STUDIES: Venous Dopplers of the bilateral lower extremities showed no DVT noted bilaterally. TIME SPENT ON DISCHARGE: 30 minutes.
== END 2019-03-19 08:45 | disposition home or self-care (01) | DRG 603 ==
LOC: M ED 03:53 → M ED INP 07:28 → M MS5PR 14:05
PROVIDERS: ADMIT General Practice; ATTEND General Practice
PROC: 30233N1 Transfusion of Nonautologous Red Blood Cells into Peripheral Vein, Percutaneous Approach (ICD-10-PCS; principal; 2019-03-18)
DX: L03.116 Cellulitis of left lower limb (principal); C91.Z0 Other lymphoid leukemia not having achieved remission; D64.9 Anemia, unspecified; M06.9 Rheumatoid arthritis, unspecified; F17.200 Nicotine dependence, unspecified, uncomplicated; L40.50 Arthropathic psoriasis, unspecified; Z79.52 Long term (current) use of systemic steroids; Z79.899 Other long term (current) drug therapy

== ENCOUNTER 2019-03-31 10:45 | Outpatient (CLI) | payer MEDICARE, MEDICAID ==
[2019-03-31] VITALS (8 sets, daily range): BP systolic 101–124; BP diastolic 58–78
[~2019-03-31] VITALS: Ht 180.3 cm; Wt 88.4 kg
[~2019-03-31 10:45] MED LIST changes: +AUGM875T28 PO; +BACITAB PO; +CEPH500C PO; +DOXY-350 PO; +METH25IN12 SC; +diphenhydrAMINE 25 MG CAP PO SCH
[2019-03-31] MEDS ORDERED: ACETAMINOPHEN 325 MG TAB PO ONE (11:30)
== END 2019-03-31 16:15 | disposition home or self-care (01) ==
LOC: M INFU 10:45
PROVIDERS: ATTEND Internal Medicine Hematology
DX: C91.50 Adult T-cell lymphoma/leukemia (HTLV-1-associated) not having achieved remission (principal)
CPT/HCPCS: 36430; P9016

== ENCOUNTER → 2019-04-10 | Outpatient (CLI) | payer MEDICARE, MEDICAID ==
[~2019-04-10] MED LIST changes: -diphenhydrAMINE 25 MG CAP PO SCH
--- NOTE | 2019-04-10 14:35 | REP ---
Left foot series: Four views. History: Rule out osteomyelitis. Findings: There is diffuse osteopenia. There is varus deformity at the midfoot with medial subluxation of the distal talus relative to the navicular. There is osteoarthritic sclerosis and subcortical cyst formation at this articulation associated with this. There are erosive arthropathy changes at the third and fourth MTP joints. There is diffuse dorsal soft tissue swelling. Extensive vascular calcification is noted. No acute bony destructive lesion is seen to suggest osteomyelitis. No soft tissue gas is appreciated. 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 There is an erosive arthropathy affecting the third and fourth MTP joints. Diffuse swelling and vascular calcification. No bony destructive lesion. Electronically Signed by Bryan Mancia MD 04/10/2019 02:57 P
--- NOTE | 2019-04-10 14:35 | REP ---
Left tib-fib series: Four views. History: Rule out osteomyelitis. Findings: There is diffuse soft tissue swelling of the distal calf. Vascular calcification is noted. Diffuse osteopenia is noted. No bony erosive change or destructive lesion is seen. No periosteal reaction is noted. Impression: Vascular calcification and diffuse osteopenia. No acute bony abnormality. Diffuse soft tissue swelling. Electronically Signed by Bryan Mancia MD 04/10/2019 02:57 P
== END ==
LOC: M RAD 12:29
PROVIDERS: ATTEND Internal Medicine Medical Oncology
DX: C91.90 Lymphoid leukemia, unspecified not having achieved remission (principal)

== ENCOUNTER 2019-04-13 12:43 | Outpatient (CLI) | payer MEDICARE, MEDICAID ==
[~2019-04-13] VITALS: Ht 180.3 cm; Wt 95.2 kg
[~2019-04-13 12:43] MED LIST changes: +CYCL1CAP2 PO; -OMEP-172 PO; +OMEP1CAP73 PO; +ONDA8TAB10 PO; -ONDA8TAB7 PO
[2019-04-13 12:50] VITALS: BP 118/69
[2019-04-13] MEDS ORDERED: ACETAMINOPHEN TAB 650MG DOSE (2X325MG) PO ONE (13:00)
[2019-04-13] MEDS ORDERED: diphenhydrAMINE 50 MG CAP PO ONE (13:00)
[2019-04-13 14:30] VITALS: BP 120/70
[2019-04-13 14:45] VITALS: BP 118/64
[2019-04-13 15:45] VITALS: BP 114/58
[2019-04-13 16:30] VITALS: BP 125/79
== END 2019-04-13 16:30 | disposition home or self-care (01) ==
LOC: M INFU 12:43
PROVIDERS: ATTEND Internal Medicine Medical Oncology
DX: C91.11 Chronic lymphocytic leukemia of B-cell type in remission (principal); E07.9 Disorder of thyroid, unspecified
CPT/HCPCS: 36415; 36430; 80053; 84439; 84443; 85027; 86850; 86900; 86901; 86920; 96401; J9260; P9016

== ENCOUNTER 2019-04-20 12:33 | Outpatient (CLI) | payer MEDICARE, MEDICAID ==
[~2019-04-20] VITALS: Ht 185.4 cm; Wt 95.2 kg
[2019-04-20] VITALS (7 sets, daily range): BP systolic 96–136; BP diastolic 54–82
[~2019-04-20 12:33] MED LIST changes: +DARB10SYRN IV
[2019-04-20] MEDS ORDERED: ACETAMINOPHEN TAB 650MG DOSE (2X325MG) PO ONE (13:00)
[2019-04-20] MEDS ORDERED: diphenhydrAMINE 50 MG CAP PO ONE (13:00)
== END 2019-04-20 16:30 | disposition home or self-care (01) ==
LOC: M INFU 12:33
PROVIDERS: ATTEND Internal Medicine Medical Oncology
DX: D64.9 Anemia, unspecified (principal)
CPT/HCPCS: 36415; 36430; 80053; 84439; 84443; 85027; 86850; 86900; 86901; 86920; 96372; 96401; J0881; J9260; P9016

== ENCOUNTER → 2019-04-21 | Outpatient (CLI) | payer MEDICARE, MEDICAID ==
--- NOTE | 2019-04-21 21:00 | REP ---
MRI left calf without and with IV contrast: History: Rule out soft tissue neoplasm. Diffuse soft tissue swelling. Without evidence of DVT. Comparison radiographs April 10, 2019. Comparison sonography April 17, 2019. Contrast enhancement dose: 18 mL of intravenous ProHance. Technique: Axial, coronal and sagittal imaging planes are utilized. T1 and T2-weighted scans were obtained in the usual fashion with and without fat saturation. MRI findings: Fat sat T2-weighted scans demonstrate marked diffuse subcutaneous edema. There is mild T2 edema in the soleus and gastrocnemius musculature. No skeletal muscle atrophy is seen. No soft tissue mass is appreciated. Cortical and medullary bone signal intensity are normal. No bony lesion is seen. There is an incidental subcortical cyst formation in the distal fibula at the ankle joint. Some ankle joint fluid is seen. No periosteal reaction is appreciated. No vascular abnormality is appreciated. Impression: Diffuse soft tissue edema seen. No soft tissue mass, abnormal fluid collection, or skeletal mass lesion is seen. Postcontrast images show no significant contrast enhancement. Electronically Signed by Bryan Mancia MD 04/22/2019 08:00 A
== END ==
LOC: M PLARAD 13:53
PROVIDERS: ATTEND Internal Medicine Medical Oncology
DX: M79.89 Other specified soft tissue disorders (principal)

== ENCOUNTER 2019-05-03 14:43 | Observation (INO) | payer MEDICARE, MEDICAID ==
[2019-05-03] VITALS (7 sets, daily range): BP systolic 113–143; BP diastolic 64–77
--- NOTE | 2019-05-03 15:04 | ECGEPIP ---
[facility] - ED Test Date: 2019-05-03 Pat Name: FLASH CASTELLANOS Department: Room: - Gender: Male [employer]: JOSE C : 1980 Requested By: Mercy Espitia Order Number: [id number] Reading MD: Sonido Sheldon Measurements Intervals [place] Rate: 71 P: 27 MI: 172 QRS: -3 QRSD: 110 T: 23 QT: 390 QTc: 424 Interpretive Statements SINUS RHYTHM Nonspecific T wave abnormality Delayed anterior R wave progression Similar to tracing done 12-16-17 Electronically Signed on 05-03-2019 15:04:38 EST by Sonido Sheldon
[2019-05-03 15:36] LABS: VENOUS BASE EXCESS 2.1 (-2.0-2.0); VENOUS HCO3 26.7 MEQ/L (23.0-27.0); VENOUS O2 SATURATION 96.9 % (60.0-80.0); VENOUS PARTIAL PRESSURE CO2 41.8 mmHg (38.0-50.0); VENOUS PARTIAL PRESSURE O2 90.9 mmHg (30.0-50.0); VENOUS PH 7.424 UNITS (7.330-7.430); VENOUS STANDARD HCO3 26.4 MEQ/L
[2019-05-03 15:45] LABS: HEMATOCRIT 24.3 % (42.0-52.0); HEMOGLOBIN 7.6 g/dl (13.5-17.5); MEAN CORPUSCULAR HEMOGLOBIN 28.4 pg (27.0-33.0); MEAN CORPUSCULAR HGB CONC 31.3 g/dl (32.0-36.5); MEAN CORPUSCULAR VOLUME 90.7 fl (80.0-96.0); PLATELET COUNT, AUTOMATED 303 10^3/uL (150-450); RED BLOOD COUNT 2.68 10^6/uL (4.30-6.10); WHITE BLOOD COUNT 4.4 10^3/uL (4.0-10.0)
--- NOTE | 2019-05-03 15:46 | REP ---
CHEST, SINGLE VIEW: Single view of the chest is performed and compared to prior study of 08/29/2018. Heart is upper limits of normal in size. Mediastinal silhouette is unremarkable. Linear bibasilar fibroatelectatic changes are present. Upper lobes are clear. IMPRESSION: Mild bibasilar fibroatelectatic change. Electronically Signed by Ag Gong MD 05/04/2019 07:56 P
[2019-05-03 15:56] LABS: INR 1.13; PROTHROMBIN TIME 14.2 SECONDS (11.8-14.0)
[2019-05-03 16:07] LABS: ANISOCYTOSIS 2+; ATYPICAL LYMPH 2 % (0-5); BASOPHILS 1 % (0-1); HYPOCHROMASIA 2+; LYMPHOCYTES 38 % (16-44); METAMYELOCYTES 1 % (0-0); MONOCYTES 12 % (0-5); NEUTROPHILS 45 % (28-66); PLATELET ESTIMATE NORMAL (NORMAL); POIKILOCYTOSIS 2+; POLYCHROMASIA 1+
[2019-05-03 16:22] LABS: ALBUMIN 3.8 GM/DL (3.2-5.2); ALT/SGPT 59 U/L (12-78); BILIRUBIN,DIRECT 0.2 MG/DL (0.0-0.2); BILIRUBIN,TOTAL 0.4 MG/DL (0.2-1.0); BLOOD UREA NITROGEN 13 MG/DL (7-18); CALCIUM LEVEL 8.6 MG/DL (8.5-10.1); CARBON DIOXIDE LEVEL 28 MEQ/L (21-32); CHLORIDE LEVEL 105 MEQ/L (98-107); CK-MB VALUE MASS < 1.0 NG/ML (<3.6); CPK CREATINE PHOSPHOKINASE 29 U/L (39-308); CREATININE FOR GFR 0.63 MG/DL (0.70-1.30); GLOMERULAR FILTRATION RATE > 60.0 (>60); GLUCOSE, FASTING 104 MG/DL (70-100); MB/CK RELATIVE INDEX 3.45 (< OR =4); POTASSIUM SERUM 3.7 MEQ/L (3.5-5.1); SODIUM LEVEL 139 MEQ/L (136-145); THYROID STIMULATING HORMONE 0.131 uIU/ML (0.358-3.740); TOTAL PROTEIN 7.2 GM/DL (6.4-8.2); TROPONIN I < 0.02 NG/ML (< 0.10)
[2019-05-03] MEDS ORDERED: OMEP-218 PO (16:51)
[2019-05-03] MEDS ORDERED: TRAM50TA2 PO (16:54)
[2019-05-03] MEDS ORDERED: CYCL1CAP2 PO (16:55)
[2019-05-03] MEDS ORDERED: GABAPENTIN 300 MG CAP PO PRN (17:30)
[2019-05-03] MEDS ORDERED: ONDANSETRON 4 MG TAB (S0181) PO PRN (17:30)
[2019-05-03] MEDS ORDERED: IBUPROFEN 800 MG TAB PO PRN (17:30)
[2019-05-03] MEDS ORDERED: CYANOCOBALAMIN 500 MCG TAB PO SCH (21:00)
[2019-05-03] MEDS: predniSONE 10 MG TAB PO SCH (21:08)
[2019-05-03] MEDS: OMEPRAZOLE 20 MG CAP PO SCH (21:08)
--- NOTE | 2019-05-03 23:43 | HPEPDOC ---
General Date of Admission May 03, 2019 at 17:15 Date of Service: May 03, 2019 Chief Complaint The patient is a 39-year-old male admitted with a reason for visit of Sypmtomatic Anemia. History of Present Illness 39 year old male was sent to the ED from the oncology clinic for blood transfusion. Patient has refractory anemia due to rheumatoid arthritis related TGL leukaemia and get transfusion about every week. His last transfusion was 2 weeks ago. Lat week his methotrexate was stopped and he was started on cyclophosphamide. He complained of feeling fatigued always and becomes sob easily . He is often dizzy and light headed. Says his SOB has increased this week . He had blood work done at the clinic which showed a hb of 7.6 so was sent to [facility] ED for PRBC transfusion. He was admitted for symptomatic anemia. Home Medications Scheduled Cyanocobalamin (Vitamin B-12) (Vitamin B-12) 1,000 Mcg Tablet, 1,000 MCG PO QHS, (Reported) Cyclophosphamide (Cyclophosphamide) 50 Mg Capsule, 50 MG PO DAILY, (Reported) Darbepoetin (Aranesp) 100 Mcg/0.5 Ml Syringe, 500 MCG IV Q14D, (Reported) Deferasirox (Jadenu) 360 Mg Tablet, 4 TABS PO QAM, (Reported) Folic Acid (Folic Acid) 0.4 Mg Tablet, 0.4 MG PO DAILY, (Reported) Omeprazole (Omeprazole) 20 Mg Capsule.dr, 20 MG PO BID, (Reported) Prednisone (Prednisone) 10 Mg Tablet, 10 MG PO BID, (Reported) Scheduled PRN Gabapentin (Gabapentin) 600 Mg Tablet, 600 MG PO BID PRN for PAIN, (Reported) Ibuprofen (Ibuprofen) 800 Mg Tablet, 800 MG PO BID PRN for PAIN, (Reported) Ondansetron HCl (Ondansetron HCl) 8 Mg Tablet, 8 MG PO Q6H PRN for NAUSEA OR VOMITING Tramadol HCl (Tramadol HCl) 50 Mg Tablet, 50 MG PO BID PRN for PAIN, (Reported) Allergies Coded Allergies: No Known Allergies (Unverified , 07/11/18) Past Medical History Medical History 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 There is an erosive arthropathy affecting the third and fourth MTP joints. Surgical History Right wrist fusion and tendon transfer left hip 2006. Family History Significant Family History: Other (Father cerebral infarction) Social History * Smoker: current smoker Alcohol: Denies Drugs: denies A-FIB/CHADSVASC A-FIB History Current/History of A-Fib/PAF?: No Review of Systems Constitutional: Reports: Weakness, Fatigue Eyes: Denies: Pain, Vision change ENT: Denies: Head Aches, Ear Pain, Dysphagia Skin: Denies: Rash, Lesions, Breakdown Pulmonary: Reports: Dyspnea; Denies: Cough Cardiovascular: Reports: Palpitations, Lt Headedness; Denies: Chest Pain, Orthopnea, Paroxysmal Noc. Dyspnea Gastrointestinal: Denies: Nausea, Vomiting, Abdominal Pain, Diarrhea Genitourinary: Denies: Dysuria, Frequency, Incontinence, Retention Hematologic: Denies: Bruising, Bleeding Excessively Musculoskeletal: Reports: Foot Pain Neurological: Denies: Weakness, Numbness, Change in speech, Confusion Physical Examination General Exam: Positive: Alert, Cooperative, No Acute Distress Eye Exam: Positive: PERRLA, Conjunctiva & lids normal, EOMI; Negative: Sclera icteric ENT Exam: Positive: Atraumatic, Mucous membr. moist/pink, Pharynx Normal Neck Exam: Positive: Supple; Negative: JVD, thyromegaly Chest Exam: Positive: Clear to auscultation, Normal air movement Heart Exam: Positive: Rate Normal, Regular Rhythm, Normal S1, Normal S2; Negative: Murmurs, Rubs Abdomen Exam: Positive: Normal bowel sounds, Soft; Negative: Tenderness, Hepatospenomegaly Extremity Exam: Positive: Tenderness ( in the left mid foot), Other (left foot with chronic deformity); Negative: Clubbing, Cyanosis, Edema Skin Exam: Positive: Nl turgor and temperature; Negative: Breakdown, Lesion Neuro Exam: Positive: Normal Speech, Strength at 5/5 X4 ext, Normal Tone, Sensation Intact Vital Signs Vital Signs Date Time Temp Pulse Resp B/P (MAP) Pulse Ox O2 Delivery O2 Flow Rate FiO2 05/03/19 22:38 97.4 67 17 113/65 96 Room Air Laboratory Data Labs 24H Laboratory Tests 2 05/03/19 14:48: Nucleated Red Blood Cells % (auto) 0.5H, Neutrophils 45, Band Neutrophils 1, Lymphocytes (Manual) 38, Monocytes (Manual) 12H, Basophils (Manual) 1, Metamyelocytes 1H, Atypical Lymphocytes 2, Polychromasia 1+, Hypochromasia 2+, Poikilocytosis 2+, Basophilic Stippling 1+, Anisocytosis 2+, Platelet Estimate NORMAL, Prothrombin Time 14.2H, Prothromb Time International Ratio 1.13, Anion Gap 6L, Glomerular Filtration Rate > 60.0, Calcium Level 8.6, Total Bilirubin 0.4, Direct Bilirubin 0.2, Aspartate Amino Transf (AST/SGOT) 25, Alanine Aminotransferase (ALT/SGPT) 59, Alkaline Phosphatase 127H, Total Creatine Kinase 29L, Creatine Kinase MB < 1.0, Creatine Kinase MB Relative Index 3.45, Troponin I < 0.02, Total Protein 7.2, Albumin 3.8, Albumin/Globulin Ratio 1.12, Thyroid Stimulating Hormone (TSH) 0.131L 05/03/19 15:07: Blood Gas Bicarbonate Standard 26.4, Venous Blood pH 7.424, Venous Blood Partial Pressure CO2 41.8, Venous Blood Partial Pressure O2 90.9H, Venous Blood Total Carbon Dioxide 28.0, Venous Blood HCO3 26.7, Venous Blood Oxygen Saturation 96.9H, Venous Blood Base Excess 2.1H CBC/BMP Laboratory Tests 05/03/19 14:48 Microbiology Microbiology 05/03/19 Blood Culture, Received Pending Assessment/Plan 39 year old male was sent to the ED from the oncology clinic for blood t ransfusion. Patient has refractory anemia due to rheumatoid arthritis related TGL leukaemia and get transfusion about every week. His last transfusion was 2 weeks ago. Lat week his methotrexate was stopped and he was started on cyclophosphamide. He complained of feeling fatigued always and becomes sob easily . He is often dizzy and light headed. Says his SOB has increased this week . He had blood work done at the clinic which showed a hb of 7.6 so was sent to [facility] ED for PRBC transfusion. He was admitted for symptomatic anemia. 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 continue gabapentin, ibuprofen prn. GI prophylaxis with PPI Plan / VTE VTE Prophylaxis Ordered?: Yes CHERRI MATTHEW MD May 03, 2019 23:43
[2019-05-04 00:45] VITALS: BP 124/68
[2019-05-04 06:00] VITALS: BP 111/58
[2019-05-04 06:13] LABS: BASO % 0.5 % (0.0-1.0); EOS % 0.8 % (0.0-3.0); HEMOGLOBIN 8.6 g/dl (13.5-17.5); LYMPH # 1.9 10^3/uL (1.5-5.0); LYMPH % 47.3 % (24.0-44.0); MEAN CORPUSCULAR HEMOGLOBIN 29.6 pg (27.0-33.0); MEAN CORPUSCULAR HGB CONC 33.1 g/dl (32.0-36.5); MEAN CORPUSCULAR VOLUME 89.3 fl (80.0-96.0); MONO # 0.6 10^3/uL (0.0-0.8); MONO % 16.3 % (0.0-5.0); NEUTROPHILS # 1.3 10^3/uL (1.5-8.5); NEUTROPHILS % 32.3 % (36.0-66.0); PLATELET COUNT, AUTOMATED 284 10^3/uL (150-450); RED BLOOD COUNT 2.91 10^6/uL (4.30-6.10); WHITE BLOOD COUNT 3.9 10^3/uL (4.0-10.0)
[2019-05-04 06:50] LABS: BLOOD UREA NITROGEN 11 MG/DL (7-18); CALCIUM LEVEL 8.4 MG/DL (8.5-10.1); CARBON DIOXIDE LEVEL 30 MEQ/L (21-32); CHLORIDE LEVEL 109 MEQ/L (98-107); CREATININE FOR GFR 0.57 MG/DL (0.70-1.30); FREE THYROXINE INDEX 3.7 % (1.4-3.8); GLOMERULAR FILTRATION RATE > 60.0 (>60); GLUCOSE, FASTING 108 MG/DL (70-100); POTASSIUM SERUM 4.3 MEQ/L (3.5-5.1); SODIUM LEVEL 142 MEQ/L (136-145); T UPTAKE 32 % (33-40); THYROID STIMULATING HORMONE 0.296 uIU/ML (0.358-3.740); THYROXINE (T4) 11.5 UG/DL (4.5-12.0)
[2019-05-04] MEDS: OMEPRAZOLE 20 MG CAP PO SCH (08:04)
[2019-05-04] MEDS: predniSONE 10 MG TAB PO SCH (08:04)
[2019-05-04] MEDS ORDERED: FOLIC ACID 1 MG TAB PO SCH (09:00)
[2019-05-04] MEDS ORDERED: CYCLOPHOSPHAMIDE 25 MG PO SCH (09:00)
--- NOTE | 2019-05-04 10:47 | DS.PDOC ---
Discharge Summary General Date of Admission May 03, 2019 at 17:15 Date of Discharge 05/04/19 Discharge Summary PROCEDURES PERFORMED DURING STAY: [None]. DISCHARGE DIAGNOSES: Symptomatic anemia due to isolated red cell aplasia associated with RA. 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 There is an erosive arthropathy affecting the third and fourth MTP joints. COMPLICATIONS/CHIEF COMPLAINT: Symptomatic Anemia. HISTORY OF PRESENT ILLNESS: please see history and physical HOSPITAL COURSE: 39 year old male was sent to the ED from the oncology clinic for blood transfusion. Patient has refractory anemia due to rheumatoid arthritis related TGL leukemia and get transfusion about every week. His last transfusion was 2 weeks ago. Lat week his methotrexate was stopped and he was started on cyclophosphamide. He complained of feeling fatigued always and becomes sob easily . He is often dizzy and light headed. Says his SOB has increased this week . He had blood work done at the clinic which showed a hb of 7.6 so was sent to the ED for PRBC transfusion. He was admitted for symptomatic anemia. He received 2 units of PRBC transfusion with some improvement of his HH to 8.6. His symptoms of dizziness and light headedness has resolved. 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 continue gabapentin, ibuprofen prn. GI prophylaxis with PPI Foot deformity follow up with PMD and podiatry DISCHARGE MEDICATIONS: Please see below. ALLERGIES: Please see below. PHYSICAL EXAMINATION ON DISCHARGE: VITAL SIGNS: Please see below. General Exam: Positive: Alert, Cooperative, No Acute Distress Eye Exam: Positive: PERRLA, Conjunctiva & lids normal, EOMI; Negative: Sclera icteric ENT Exam: Positive: Atraumatic, Mucous membr. moist/pink, Pharynx Normal Neck Exam: Positive: Supple; Negative: JVD, thyromegaly Chest Exam: Positive: Clear to auscultation, Normal air movement Heart Exam: Positive: Rate Normal, Regular Rhythm, Normal S1, Normal S2; Negative: Murmurs, Rubs Abdomen Exam: Positive: Normal bowel sounds, Soft; Negative: Tenderness, Hepatospenomegaly Extremity Exam: Positive: Tenderness ( in the left mid foot), Other (left foot with chronic deformity); Negative: Clubbing, Cyanosis, Edema Skin Exam: Positive: Nl turgor and temperature; Negative: Breakdown, Lesion Neuro Exam: Positive: Normal Speech, Strength at 5/5 X4 ext, Normal Tone, Sensation Intact LABORATORY DATA: Please see below. ACTIVITY: [As tolerated]. DIET: As tolerated DISPOSITION: 01 Home, Self-Care. DISCHARGE INSTRUCTIONS: Follow up oncology in 1 week Follow up PMD in 2 weeks DISCHARGE CONDITION: [Stable]. TIME SPENT ON DISCHARGE: 32 minutes. Vital Signs/I&Os Vital Signs Date Time Temp Pulse Resp B/P (MAP) Pulse Ox O2 Delivery O2 Flow Rate FiO2 05/04/19 06:00 97.7 73 20 111/58 (75) 97 Room Air I&O- Last 24 Hours up to 6 AM 05/04/19 06:00 Intake Total 2150 ml Output Total 625 ml Balance 1525 ml Laboratory Data Labs 24H Laboratory Tests 2 05/03/19 14:48: Nucleated Red Blood Cells % (auto) 0.5H, Neutrophils 45, Band Neutrophils 1, Lymphocytes (Manual) 38, Monocytes (Manual) 12H, Basophils (Manual) 1, Metamyelocytes 1H, Atypical Lymphocytes 2, Polychromasia 1+, Hypochromasia 2+, Poikilocytosis 2+, Basophilic Stippling 1+, Anisocytosis 2+, Platelet Estimate NORMAL, Prothrombin Time 14.2H, Prothromb Time International Ratio 1.13, Anion Gap 6L, Glomerular Filtration Rate > 60.0, Calcium Level 8.6, Total Bilirubin 0.4, Direct Bilirubin 0.2, Aspartate Amino Transf (AST/SGOT) 25, Alanine Aminotransferase (ALT/SGPT) 59, Alkaline Phosphatase 127H, Total Creatine Kinase 29L, Creatine Kinase MB < 1.0, Creatine Kinase MB Relative Index 3.45, Troponin I < 0.02, Total Protein 7.2, Albumin 3.8, Albumin/Globulin Ratio 1.12, Thyroid Stimulating Hormone (TSH) 0.131L 05/03/19 15:07: Blood Gas Bicarbonate Standard 26.4, Venous Blood pH 7.424, Venous Blood Partial Pressure CO2 41.8, Venous Blood Partial Pressure O2 90.9H, Venous Blood Total Carbon Dioxide 28.0, Venous Blood HCO3 26.7, Venous Blood Oxygen Saturation 96.9H, Venous Blood Base Excess 2.1H 05/04/19 05:16: Nucleated Red Blood Cells % (auto) 1.0H, Anion Gap 3L, Glomerular Filtration Rate > 60.0, Calcium Level 8.4L, Thyroid Stimulating Hormone (TSH) 0.296L, Immature Granulocyte % (Auto) 2.8, Neutrophils (%) (Auto) 32.3L, Lymphocytes (%) (Auto) 47.3H, Monocytes (%) (Auto) 16.3H, Eosinophils (%) (Auto) 0.8, Basophils (%) (Auto) 0.5, Neutrophils # (Auto) 1.3L, Lymphocytes # (Auto) 1.9, Monocytes # (Auto) 0.6, Eosinophils # (Auto) 0.0, Basophils # (Auto) 0.0, Free Thyroxine Index 3.7, Thyroxine (T4) 11.5, Triiodothyronine (T3) Uptake 32L CBC/BMP Laboratory Tests 05/03/19 14:48 05/04/19 05:16 Microbiology Microbiology 05/03/19 Blood Culture, Received Pending Discharge Medications Scheduled Cyanocobalamin (Vitamin B-12) (Vitamin B-12) 1,000 Mcg Tablet, 1,000 MCG PO QHS, (Reported) Cyclophosphamide (Cyclophosphamide) 50 Mg Capsule, 50 MG PO DAILY, (Reported) Darbepoetin (Aranesp) 100 Mcg/0.5 Ml Syringe, 500 MCG IV Q14D, (Reported) Deferasirox (Jadenu) 360 Mg Tablet, 4 TABS PO QAM, (Reported) Folic Acid (Folic Acid) 0.4 Mg Tablet, 0.4 MG PO DAILY, (Reported) Omeprazole (Omeprazole) 20 Mg Capsule.dr, 20 MG PO BID, (Reported) Prednisone (Prednisone) 10 Mg Tablet, 10 MG PO BID, (Reported) Scheduled PRN Gabapentin (Gabapentin) 600 Mg Tablet, 600 MG PO BID PRN for PAIN, (Reported) Ibuprofen (Ibuprofen) 800 Mg Tablet, 800 MG PO BID PRN for PAIN, (Reported) Ondansetron HCl (Ondansetron HCl) 8 Mg Tablet, 8 MG PO Q6H PRN for NAUSEA OR VOMITING Tramadol HCl (Tramadol HCl) 50 Mg Tablet, 50 MG PO BID PRN for PAIN, (Reported) Allergies Coded Allergies: No Known Allergies (Unverified , 07/11/18) CHERRI MATTHEW MD May 04, 2019 10:47
== END 2019-05-04 09:05 | disposition home or self-care (01) ==
LOC: M ED 14:43 → M ED INP 17:15 → ENRESERV 18:49 → M MSPAV 20:33
PROVIDERS: ADMIT Internal Medicine Nephrology; ATTEND Internal Medicine Nephrology
DX: D60.9 Acquired pure red cell aplasia, unspecified (principal); C91.Z0 Other lymphoid leukemia not having achieved remission; M05.9 Rheumatoid arthritis with rheumatoid factor, unspecified; L40.59 Other psoriatic arthropathy; E83.111 Hemochromatosis due to repeated red blood cell transfusions; E24.2 Drug-induced Cushing's syndrome; M21.6X2 Other acquired deformities of left foot; Z79.52 Long term (current) use of systemic steroids; Z79.899 Other long term (current) drug therapy; F17.218 Nicotine dependence, cigarettes, with other nicotine-induced disorders
CPT/HCPCS: 36415; 36430; 71045; 80048; 80076; 82550; 82553; 82803; 84436; 84443; 84479; 84484; 85025; 85027; 85610; 86850; 86900; 86901; 86920; 87040; 93005; 93041; 99285; G0378; J8530; P9016

== ENCOUNTER 2019-08-18 06:58 | Observation (INO) | payer MEDICARE, MEDICAID ==
[~2019-08-18] VITALS: Ht 180.3 cm; Wt 88.6 kg
[~2019-08-18 06:58] MED LIST changes: +CYCL-707 PO; -CYCL10TA PO
[2019-08-18] MEDS ORDERED: NS 1,000 ML IV SCH (07:13)
[2019-08-18] MEDS ORDERED: NS 500 ML IV ONE (07:15)
[2019-08-18] MEDS ORDERED: ONDANSETRON 4MG/2ML VIAL IV ONE (07:15)
--- NOTE | 2019-08-18 07:46 | REP ---
Clinical: Fever . Comparison: 05/03/2019 . Findings: The mediastinum and cardiac silhouette are stable and within normal limits for portable technique. The lung howard are clear without acute consolidation, effusion, or pneumothorax. Skeletal structures are intact. Impression: No acute cardiopulmonary process appreciated. Electronically Signed by Toby Maurer MD 08/18/2019 07:36 A
[2019-08-18 07:57] LABS: BASO % 0.3 % (0.0-1.0); EOS # 0.1 10^3/uL (0.0-0.5); EOS % 1.4 % (0.0-3.0); HEMATOCRIT 31.9 % (42.0-52.0); HEMOGLOBIN 11.2 g/dl (13.5-17.5); LYMPH # 2.9 10^3/uL (1.5-5.0); LYMPH % 33.9 % (24.0-44.0); MEAN CORPUSCULAR HEMOGLOBIN 38.8 pg (27.0-33.0); MEAN CORPUSCULAR HGB CONC 35.1 g/dl (32.0-36.5); MEAN CORPUSCULAR VOLUME 110.4 fl (80.0-96.0); MONO # 1.2 10^3/uL (0.0-0.8); MONO % 13.2 % (0.0-5.0); NEUTROPHILS # 4.4 10^3/uL (1.5-8.5); NEUTROPHILS % 50.6 % (36.0-66.0); PLATELET COUNT, AUTOMATED 254 10^3/uL (150-450); RED BLOOD COUNT 2.89 10^6/uL (4.30-6.10); WHITE BLOOD COUNT 8.7 10^3/uL (4.0-10.0)
[2019-08-18 08:19] LABS: ERYTHROCYTE SEDIMENTATION RATE 66 mm/hr (0-15)
[2019-08-18] MEDS ORDERED: TALT80IN7 SC (08:23)
[2019-08-18 08:24] LABS: ALBUMIN 3.6 GM/DL (3.2-5.2); ALT/SGPT 80 U/L (12-78); BILIRUBIN,DIRECT 0.2 MG/DL (0.0-0.2); BILIRUBIN,TOTAL 0.8 MG/DL (0.2-1.0); CK-MB VALUE MASS < 1.0 NG/ML (<3.6); CPK CREATINE PHOSPHOKINASE 34 U/L (39-308); LIPASE 120 U/L (73-393); MB/CK RELATIVE INDEX 2.94 (< OR =4); TOTAL PROTEIN 6.8 GM/DL (6.4-8.2); TROPONIN I < 0.02 NG/ML (< 0.10)
[2019-08-18] MEDS ORDERED: METOCLOPRAMIDE INJ 10MG/2ML VIAL (J2765 PER 1) IV ONE (08:30)
[2019-08-18] MEDS ORDERED: ISOVUE-370 76% 100ML VIAL As Ordered ONE (08:42)
[2019-08-18 08:45] LABS: MAGNESIUM LEVEL 1.8 MG/DL (1.8-2.4)
[2019-08-18] MEDS ORDERED: KCL 10MEQ/100ML SWI (KRUN) 10 MEQ in IV 1 EA IV ONE (08:45)
--- NOTE | 2019-08-18 11:31 | REP ---
CT ABDOMEN AND PELVIS WITH IV CONTRAST: TECHNIQUE: Axial contrast enhanced images from the lung bases to the pubic symphysis using 100 mL [id number] intravenous contrast material with multiplanar reformations. Visualized lung bases demonstrate no acute infiltrate with mild linear fibrotic scarring. Once again, there are multiple innumerable cysts seen throughout the liver. The largest are at the right dome. Largest cyst measures 6.7 cm in diameter. The gallbladder is grossly unremarkable. The spleen is mildly enlarged with a length of 15 cm. No intrinsic abnormality is seen. The adrenals are normal. The pancreas demonstrates no mass. A cyst is seen in the upper pole of the right kidney measuring 6.3 cm in diameter. There are a couple of subcentimeter cysts also seen in the more inferior right kidney and one is seen in the left kidney. There is no hydronephrosis bilaterally. There is no abdominal aortic aneurysm. There is no adenopathy. There is no free air or free fluid. There is no bowel wall thickening or evidence of obstruction. The appendix is normal. No pelvic mass is seen. Urinary bladder is mildly distended and grossly unremarkable. Left hip prosthesis is noted. IMPRESSION: No acute findings. Multiple cysts throughout the liver. There are bilateral renal cysts. No free air, free fluid, or obstruction. No evidence of appendicitis or other acute abnormality. Electronically Signed by Ag Gong MD 08/18/2019 12:02 P
[2019-08-18] MEDS ORDERED: BACL1TAB8 PO (11:32)
[2019-08-18] MEDS ORDERED: PRED5TA PO (11:32)
[2019-08-18] MEDS ORDERED: ACETAMINOPHEN TAB 650MG DOSE (2X325MG) PO PRN (12:00)
[2019-08-18] MEDS ORDERED: MOM 30ML SUSPENSION UDC PO PRN (12:00)
[2019-08-18] MEDS ORDERED: MAALOX 30 ML SUSP *UDC PO PRN (12:00)
[2019-08-18] MEDS ORDERED: METOCLOPRAMIDE INJ 10MG/2ML VIAL (J2765 PER 1) IV PRN (12:15)
[2019-08-18] MEDS ORDERED: ONDANSETRON 4MG/2ML VIAL IV PRN (12:15)
[2019-08-18] MEDS ORDERED: BACLOFEN 10 MG TAB PO PRN (12:15)
[2019-08-18] MEDS ORDERED: traMADol 50 MG TAB PO PRN (12:15)
--- NOTE | 2019-08-18 12:24 | HPEPDOC ---
General Date of Admission Date of Service: August 18, 2019 Chief Complaint The patient is a 39-year-old male admitted with a reason for visit of N/V. 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 A cardiac patient, he had a fever of 100 at home, but he was found afebrile in the ED and also complaining of generalized weakness and fatigue since last 2-3 days. Denies chest pain, cough, shortness of breath, syncope, etc. Home Medications Scheduled Cyanocobalamin (Vitamin B-12) (Vitamin B-12) 1,000 Mcg Tablet, 1,000 MCG PO QHS, (Reported) Cyclophosphamide (Cyclophosphamide) 50 Mg Capsule, 50 MG PO DAILY TAKE ONE CAPSULE BY MOUTH ONCE DAILY. Gabapentin (Gabapentin) 600 Mg Tablet, 600 MG PO BID, (Reported) Ixekizumab (Taltz Autoinjector) 80 Mg/1 Ml Auto.injct, 80 MG SC QMONTH, (Reported) Omeprazole (Omeprazole) 20 Mg Capsule.dr, 20 MG PO BID, (Reported) Prednisone (Prednisone) 5 Mg Tablet, 10 MG PO BID, (Reported) Scheduled PRN Baclofen (Baclofen) 10 Mg Tablet, 10 MG PO BID PRN for SPASMS, (Reported) Ondansetron HCl (Ondansetron HCl) 8 Mg Tablet, 8 MG PO Q6H PRN for NAUSEA OR VOMITING Tramadol HCl (Tramadol HCl) 50 Mg Tablet, 50 MG PO BID PRN for PAIN, (Reported) Allergies Coded Allergies: No Known Allergies (Unverified , 07/11/18) Past Medical History Medical History T-cell leukemia, isolated, Red cell aplasia, refractory anemia, rheumatoid arthritis, psoriatic arthritis, hemochromatosis, pushing White syndrome, left foot deformity erosive arthropathy in neuropathic arthropathy Surgical History Right wrist fusion and tendon transfer of left hip Family History Family history reviewed. No history of rheumatological problems in the family Social History * Smoker: Denies Alcohol: Denies Drugs: marijuana (almost daily) A-FIB/CHADSVASC A-FIB History Current/History of A-Fib/PAF?: No Review of Systems Constitutional: Denies: Chills, Fever, Malaise, Night Sweats, Weakness, Fatigue, Weight Loss, Lethargy, Other Eyes: Denies: Pain, Vision change, Conjunctivae inflammation, Eyelid inflammation, Redness, Other ENT: Denies: Head Aches, Ear Pain, Dysphagia, Sinus Congestion, Post Nasal Drip, Sore Throat, Epistaxis, Other Symptoms Skin: Denies: Rash, Lesions, Jaundice, Bruising, Itching, Dry, Breakdown, Nail Changes, Other Pulmonary: Denies: Dyspnea, Cough, Pleuritic Chest Pain, Other Symptoms Cardiovascular: Denies: Chest Pain, Palpitations, Orthopnea, Paroxysmal Noc. Dy spnea, Edema, Lt Headedness, Other Symptoms Gastrointestinal: Reports: Nausea, Vomiting Genitourinary: Denies: Dysuria, Frequency, Incontinence, Hematuria, Retention, Other Symptoms Musculoskeletal: Denies: Neck Pain, Back Pain, Shoulder Pain, Arm Pain, Hand Pain, Leg Pain, Foot Pain, Joint Pain, Muscle Pain, Spasms, Other Symptoms Neurological: Denies: Weakness, Numbness, Incoordination, Change in speech, Co nfusion, Seizures, Other Symptoms Physical Examination General Exam: Positive: Alert, Cooperative Eye Exam: Positive: PERRLA, Conjunctiva & lids normal ENT Exam: Positive: Atraumatic Neck Exam: Positive: Supple Chest Exam: Positive: Clear to auscultation, Normal air movement Heart Exam: Positive: Rate Normal, Normal S1, Normal S2 Abdomen Exam: Positive: Normal bowel sounds, Soft Extremity Exam: Positive: Normal pulses Skin Exam: Positive: Nl turgor and temperature Neuro Exam: Positive: Strength at 5/5 X4 ext, Cranial Nerves 3-12 NL Psych Exam: Positive: Mood NL, Oriented x 3 Vital Signs Vital Signs Date Time Temp Pulse Resp B/P (MAP) Pulse Ox O2 Delivery O2 Flow Rate FiO2 08/18/19 11:15 103 18 156/80 (105) 96 Nasal Cannula 3.0 08/18/19 07:17 99.8 Laboratory Data Labs 24H Laboratory Tests 2 08/18/19 07:45: Immature Granulocyte % (Auto) 0.6, Neutrophils (%) (Auto) 50.6, Lymphocytes (%) (Auto) 33.9, Monocytes (%) (Auto) 13.2H, Eosinophils (%) (Auto) 1.4, Basophils (%) (Auto) 0.3, Neutrophils # (Auto) 4.4, Lymphocytes # (Auto) 2.9, Monocytes # (Auto) 1.2H, Eosinophils # (Auto) 0.1, Basophils # (Auto) 0.0, Nucleated Red Blood Cells % (auto) 0.0, Erythrocyte Sedimentation Rate 66H, Lactic Acid Level 0.9, Magnesium Level 1.8, Total Bilirubin 0.8, Direct Bilirubin 0.2, Aspartate Amino Transf (AST/SGOT) 47H, Alanine Aminotransferase (ALT/SGPT) 80H, Alkaline Phosphatase 146H, Total Creatine Kinase 34L, Creatine Kinase MB < 1.0, Creatine Kinase MB Relative Index 2.94, Troponin I < 0.02, C-Reactive Protein, Quantitat ry 13.40H, Total Protein 6.8, Albumin 3.6, Albumin/Globulin Ratio 1.1, Lipase 120 08/18/19 07:47: POC Glucose (Misc Panel) 115H, POC Sodium (Misc Panel) 137, POC Potassium (Misc Panel) 3.2L, POC Chloride (Misc Panel) 99, POC Total CO2 (Misc Panel) 21.0L, POC Blood Urea Nitrogen (Misc Panel 9, POC Ionized Calcium (Misc Panel) 4.3L, POC Creatinine (Misc Panel) 0.8, POC Hematocrit (Misc Panel) 33.0L 08/18/19 11:40: CBC/BMP Laboratory Tests 08/18/19 07:45 Microbiology Microbiology 08/18/19 Blood Culture, Received Pending 08/18/19 Blood Culture, Received Pending Problems (1) Nausea & vomiting Status: Acute Problem Text: Patient developed nausea, vomiting and generalized weakness since last 2-3 days. 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 WBC count is 8.7, hemoglobin 11.2, hematocrit 31.9, platelets 256 and all electrolytes are within normal range except potassium Once the patient is discharged. He can follow with Dr. Valerio for his regular follow-up for his leukemia and anemia (4) Hypokalemia Status: Acute Problem Text: Potassium supplement given by ED Repeat K in a.m. Plan / VTE VTE Prophylaxis Ordered?: Yes ROEL MELÉNDEZ MD August 18, 2019 12:24
[2019-08-18 13:02] VITALS: BP 128/86
[2019-08-18] MEDS: predniSONE 10 MG TAB PO SCH ×2 (13:54→20:07)
[2019-08-18] MEDS: NS 1,000 ML IV SCH ×2 (13:55→20:08)
[2019-08-18] MEDS: GABAPENTIN 300 MG CAP PO SCH ×2 (13:55→20:07)
[2019-08-18] MEDS: OMEPRAZOLE 20 MG CAP PO SCH ×2 (13:55→20:07)
[2019-08-18] MEDS ORDERED: CYANOCOBALAMIN 500 MCG TAB PO SCH (21:00)
--- NOTE | 2019-08-18 21:03 | ECGEPIP ---
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
[2019-08-18 22:00] VITALS: BP 124/86
[2019-08-19 06:00] VITALS: BP 142/73
[2019-08-19 06:16] LABS: HEMATOCRIT 27.4 % (42.0-52.0); HEMOGLOBIN 9.5 g/dl (13.5-17.5); MEAN CORPUSCULAR HEMOGLOBIN 39.1 pg (27.0-33.0); MEAN CORPUSCULAR HGB CONC 34.7 g/dl (32.0-36.5); MEAN CORPUSCULAR VOLUME 112.8 fl (80.0-96.0); PLATELET COUNT, AUTOMATED 210 10^3/uL (150-450); RED BLOOD COUNT 2.43 10^6/uL (4.30-6.10); WHITE BLOOD COUNT 4.1 10^3/uL (4.0-10.0)
[2019-08-19] MEDS: NS 1,000 ML IV SCH (06:24)
[2019-08-19 06:45] LABS: ALBUMIN 3.1 GM/DL (3.2-5.2); ALT/SGPT 62 U/L (12-78); BILIRUBIN,TOTAL 0.4 MG/DL (0.2-1.0); BLOOD UREA NITROGEN 7 MG/DL (7-18); CALCIUM LEVEL 8.3 MG/DL (8.5-10.1); CARBON DIOXIDE LEVEL 27 MEQ/L (21-32); CHLORIDE LEVEL 107 MEQ/L (98-107); CREATININE FOR GFR 0.56 MG/DL (0.70-1.30); GLOMERULAR FILTRATION RATE > 60.0 (>60); GLUCOSE, FASTING 102 MG/DL (70-100); POTASSIUM SERUM 3.9 MEQ/L (3.5-5.1); SODIUM LEVEL 141 MEQ/L (136-145); TOTAL PROTEIN 6.3 GM/DL (6.4-8.2)
[2019-08-19] MEDS: predniSONE 10 MG TAB PO SCH (08:07)
[2019-08-19] MEDS: OMEPRAZOLE 20 MG CAP PO SCH (08:07)
[2019-08-19] MEDS: GABAPENTIN 300 MG CAP PO SCH (08:08)
[2019-08-19] MEDS ORDERED: ENOXAPARIN 40MG/0.4ML SYRINGE (J1650 PER 10MG) SC SCH (09:00)
--- NOTE | 2019-08-19 12:59 | DS.PDOC ---
Discharge Summary General Date of Admission August 18, 2019 at 06:59 Date of Discharge 08/19/19 Discharge Summary PROCEDURES PERFORMED DURING STAY: None. ADMITTING DIAGNOSES: 1. , Nausea, vomiting, weakness. DISCHARGE DIAGNOSES: 1. Marijuana use emesis, history of T-cell leukemia, rheumatoid arthritis, psor iatic arthritis. COMPLICATIONS/CHIEF COMPLAINT: Nausea And Vomiting,Weakness. 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 A cardiac patient, he had a fever of 100 at home, but he was found afebrile in the ED and also complaining of generalized weakness and fatigue since last 2-3 days. Denies chest pain, cough, shortness of breath, syncope, etc.. HOSPITAL COURSE: Patient was admitted with the intractable nausea, vomiting. Patient uses marijuana every day. Hence, most likely marijuana induced emesis. Patient was started on IV fluids, and metochlopromide and Zofran for nausea, vomiting. Today. Patient is completely asymptomatic. No more nausea, vomiting. He had a breakfast tolerated very well. His laboratory work essentially normal and his physical exam is also essentially within normal range. All side effects of marijuana spatially frequent use and emesis syndrome was explained to him and he understands and will try to decrease the frequency of his use. Follow with PCP in one week. DISCHARGE MEDICATIONS: Please see below. ALLERGIES: Please see below. PHYSICAL EXAMINATION ON DISCHARGE: VITAL SIGNS: Please see below. GENERAL: Normal HEENT: PERRLA. Extraocular muscles intact NECK: Supple CARDIOVASCULAR EXAMINATION: S1, S2, regular RESPIRATORY EXAMINATION: Clear to A&P ABDOMINAL EXAMINATION: , Soft, nontender, bowel sound present EXTREMITIES: No clubbing, cyanosis, edema SKIN: Normal NEUROLOGICAL EXAMINATION: . No focal motor sensory deficit PSYCHIATRIC EXAMINATION: Normal LABORATORY DATA: Please see below. IMAGING: CT abdomen and pelvis: Normal PROGNOSIS: Good ACTIVITY: As tolerated. DIET: As tolerated DISCHARGE PLAN: Follow with PCP in one week DISPOSITION: 01 Home, Self-Care. DISCHARGE INSTRUCTIONS: 1. As per discharge instructions. ITEMS TO FOLLOWUP ON ON OUTPATIENT: 1. Follow with PCP in one week. DISCHARGE CONDITION: Stable. TIME SPENT ON DISCHARGE: 25 minutes. Vital Signs/I&Os Vital Signs Date Time Temp Pulse Resp B/P (MAP) Pulse Ox O2 Delivery O2 Flow Rate FiO2 08/19/19 06:00 96.9 72 18 142/73 (96) 98 Room Air 08/18/19 12:15 3.0 I&O- Last 24 Hours up to 6 AM 08/19/19 06:00 Intake Total 3745 ml Output Total 900 ml Balance 2845 ml Laboratory Data Labs 24H Laboratory Tests 2 08/19/19 06:03: Nucleated Red Blood Cells % (auto) 0.0, Anion Gap 7L, Glomerular Filtration Rate > 60.0, Calcium Level 8.3L, Magnesium Level 2.0, Total Bilirubin 0.4, Aspartate Amino Transf (AST/SGOT) 31, Alanine Aminotransferase (ALT/SGPT) 62, Alkaline Phosphatase 121H, Total Protein 6.3L, Albumin 3.1L, Albumin/Globulin Ratio 1.0 CBC/BMP Laboratory Tests 08/19/19 06:03 Microbiology Microbiology 08/18/19 Blood Culture - Preliminary, Resulted No growth after 24 hours . All specim... 08/18/19 Blood Culture - Preliminary, Resulted No growth after 24 hours . All specim... Discharge Medications Scheduled Cyanocobalamin (Vitamin B-12) (Vitamin B-12) 1,000 Mcg Tablet, 1,000 MCG PO QHS, (Reported) Cyclophosphamide (Cyclophosphamide) 50 Mg Capsule, 50 MG PO DAILY TAKE ONE CAPSULE BY MOUTH ONCE DAILY. Gabapentin (Gabapentin) 600 Mg Tablet, 600 MG PO BID, (Reported) Ixekizumab (Taltz Autoinjector) 80 Mg/1 Ml Auto.injct, 80 MG SC QMONTH, (Reported) Omeprazole (Omeprazole) 20 Mg Capsule.dr, 20 MG PO BID, (Reported) Prednisone (Prednisone) 5 Mg Tablet, 10 MG PO BID, (Reported) Scheduled PRN Baclofen (Baclofen) 10 Mg Tablet, 10 MG PO BID PRN for SPASMS, (Reported) Ondansetron HCl (Ondansetron HCl) 8 Mg Tablet, 8 MG PO Q6H PRN for NAUSEA OR VOMITING Tramadol HCl (Tramadol HCl) 50 Mg Tablet, 50 MG PO BID PRN for PAIN, (Reported) Allergies Coded Allergies: No Known Allergies (Unverified , 07/11/18) ROEL MELÉNDEZ MD August 19, 2019 12:59
== END 2019-08-19 10:34 | disposition home or self-care (01) ==
LOC: M ED 06:58 → M ED INP 06:59 → ENRESERV 12:16 → M MSPAV 12:51
PROVIDERS: ADMIT Internal Medicine; ATTEND Internal Medicine
DX: T40.7X1A Poisoning by cannabis (derivatives), accidental (unintentional), initial encounter (principal); R11.2 Nausea with vomiting, unspecified; R53.1 Weakness; M05.9 Rheumatoid arthritis with rheumatoid factor, unspecified; L40.59 Other psoriatic arthropathy; E87.6 Hypokalemia; Z79.52 Long term (current) use of systemic steroids; Z79.899 Other long term (current) drug therapy; Z85.6 Personal history of leukemia
CPT/HCPCS: 36415; 71045; 74177; 80047; 80053; 80076; 82550; 82553; 83605; 83690; 83735; 84484; 85025; 85027; 85652; 86140; 86850; 86900; 86901; 87040; 93005; 93041; 96361; 96372; 96374; 96375; 99285; G0378; J1650; J2405; J2765; Q9967; U0002

== ENCOUNTER → 2019-09-11 | Outpatient (CLI) | payer MEDICARE, MEDICAID ==
[~2019-09-11] MED LIST changes: +BACL1TAB8 PO; +PRED5TA PO; +TALT80IN7 SC
--- NOTE | 2019-09-11 17:43 | REP ---
REASON FOR EXAM: History of rheumatoid arthritis. There are no prior ankle examinations for comparison. Prior two-view tibia and fibular exam of 04/10/2019 was reviewed. That exam showed no acute disease. Today's limited two-view examination shows a healing fracture of the distal fibula. There are chronic changes seen involving the ankle. The bones are demineralized. IMPRESSION: 1. Healing distal fibular fracture. The latest prior tibia and fibula exam showed no acute fracture. 2. Chronic changes and exam limitations, as described above. I would suggest a four-view ankle series if clinically relevant. There is a sclerotic lesion involving the distal tibia medial cortex, which is unchanged and has nonaggressive characteristics. Consider followup with MRI. Electronically Signed by Mahesh Schneider DO 09/11/2019 07:12 P
== END ==
LOC: M RAD 12:00
PROVIDERS: ATTEND Family Medicine
DX: M06.9 Rheumatoid arthritis, unspecified (principal); S82.402D Unspecified fracture of shaft of left fibula, subsequent encounter for closed fracture with routine healing; X58.XXXD Exposure to other specified factors, subsequent encounter; Y92.9 Unspecified place or not applicable

== ENCOUNTER → 2019-09-13 | Outpatient (REF) | payer MEDICARE, MEDICAID ==
[2019-09-13 16:27] LABS: RHEUMATOID FACTOR QUANT < 10.0 IU/ML (<15.0); URIC ACID 4.8 MG/DL (3.5-7.2)
[2019-09-15 13:07] LABS: ANTI DOUBLE STRAND-DNA AB 38 IU/mL (0-9); ANTINUCLEAR ANTIBODIES DIRECT Positive (Negative); RNP ANTIBODIES <0.2 AI (0.0-0.9); SJOGREN'S ANTI SS-A <0.2 AI (0.0-0.9); SJOGREN'S ANTI SS-B <0.2 AI (0.0-0.9); SMITH ANTIBODIES <0.2 AI (0.0-0.9)
== END ==
LOC: M LAB REF 16:02
PROVIDERS: ATTEND Family Medicine
DX: M06.9 Rheumatoid arthritis, unspecified (principal)

== ENCOUNTER 2019-09-28 14:03 | Emergency (ER) | payer MEDICARE, MEDICAID ==
[~2019-09-28] VITALS: Ht 180.3 cm; Wt 89.1 kg
[2019-09-28] MEDS ORDERED: TYLE650T35 PO (15:35)
[2019-09-28 15:52] VITALS: BP 129/70
--- NOTE | 2019-09-28 16:28 | REP ---
LEFT ELBOW: Four views. HISTORY: Pain and swelling. Comparison elbow radiographs are from December 03, 2015. FINDINGS: There is advanced arthropathy at the elbow with joint space narrowing in the radio-capitellar and ulno-trochlear articulations. There is reactive sclerosis. There is diffuse osteopenia. There is medial and lateral epicondylar spurring. The findings may relate to rheumatoid or other inflammatory arthritities. These findings are unchanged however when compared with the December 03, 2015 radiographs of the left elbow. There is no evidence of fracture or joint effusion. IMPRESSION: Advanced arthropathy question rheumatoid or other inflammatory arthropathy. Findings unchanged from December 03, 2015. There is diffuse osteoporosis. Electronically Signed by Bryan Mancia MD 09/28/2019 05:00 P
--- NOTE | 2019-09-28 16:29 | REP ---
LEFT ANKLE, FOUR VIEWS: Four views of the left ankle performed. There is moderate soft tissue swelling laterally. There is an old distal fibular fracture with moderate healing callous formation as seen on the prior study of 09/11/2019. No acute fracture or dislocation is seen. There are diffuse vascular calcifications in the soft tissues. Electronically Signed by Ag Gong MD 09/29/2019 01:15 P
== END 2019-09-28 15:54 | disposition home or self-care (01) ==
LOC: M ED 14:03
DX: M19.90 Unspecified osteoarthritis, unspecified site (principal); M25.522 Pain in left elbow; M25.572 Pain in left ankle and joints of left foot; K21.9 Gastro-esophageal reflux disease without esophagitis; C91.Z0 Other lymphoid leukemia not having achieved remission; F32.9 Major depressive disorder, single episode, unspecified; Z79.899 Other long term (current) drug therapy

== ENCOUNTER → 2019-11-08 | Outpatient (CLI) | payer MEDICARE, MEDICAID ==
[~2019-11-08] MED LIST changes: +ACET650T61 PO; +METH2.5T48 PO
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
== END ==
LOC: M RAD 14:15
PROVIDERS: ATTEND Orthopaedic Surgery
DX: M19.072 Primary osteoarthritis, left ankle and foot (principal); I73.9 Peripheral vascular disease, unspecified

== ENCOUNTER → 2019-11-08 | Outpatient (CLI) | payer MEDICARE, MEDICAID ==
--- NOTE | 2019-12-28 15:51 | REP ---
BILATERAL LOWER EXTREMITY DUPLEX DOPPLER ARTERIAL ULTRASOUND HISTORY: Peripheral vascular disease. TECHNIQUE: Real-time ultrasound evaluation and duplex Doppler interrogation of bilateral lower extremity arterial systems is performed. FINDINGS: BRIANNA right is 1.42 and left 1.33. Moderate scattered plaquing is seen bilaterally in the lower extremity arterial systems. There are diffuse triphasic waveforms bilaterally. There is no focal hemodynamically significant stenosis bilaterally. VELOCITY CHART PSV RIGHT (cm/s) PSV LEFT (cm/s) Femoral artery 100 102 Profunda 64.3 74.3 Proximal SFA 114 93.9 Mid-SFA 115 120 Distal SFA 110 107 Popliteal 71.3 101 Proximal ALBA 113 106 Tibioperoneal trunk 53.2 74.5 Proximal [employer] 54.3 76.3 Distal [employer]PER[employer] 99.5 92.2 Distal ALBA 89 141 MTDD
== END ==
LOC: M RAD 12:00
PROVIDERS: ATTEND Family Medicine
DX: I73.9 Peripheral vascular disease, unspecified (principal); M19.072 Primary osteoarthritis, left ankle and foot

== ENCOUNTER 2019-11-15 10:16 | Emergency (ER) | payer MEDICARE, MEDICAID ==
[~2019-11-15 10:16] MED LIST changes: -METH2.5T48 PO; +ONDANSETRON 4MG/2ML VIAL ONE; +PANTOPRAZOLE 40MG VIAL (C9113 PER 1) ONE
[2019-11-15] MEDS ORDERED: METOCLOPRAMIDE INJ 10MG/2ML VIAL (J2765 PER 1) ONE (11:16)
[2019-11-15] MEDS ORDERED: POTASSIUM CHLORIDE 10 MEQ SR TABLET ONE (13:44)
[2019-12-29 10:09] LABS: HEMATOCRIT 35.1 % (42.0-52.0); MEAN CORPUSCULAR HEMOGLOBIN 37.7 pg (27.0-33.0); MEAN CORPUSCULAR HGB CONC 34.2 g/dl (32.0-36.5); MEAN CORPUSCULAR VOLUME 110.4 fl (80.0-96.0); PLATELET COUNT, AUTOMATED 314 10^3/uL (150-450); RED BLOOD COUNT 3.18 10^6/uL (4.30-6.10); WHITE BLOOD COUNT 12.9 10^3/uL (4.0-10.0)
[2019-12-29 10:13] LABS: ATYPICAL LYMPH 5 % (0-5); LYMPHOCYTES 31 % (16-44); MONOCYTES 10 % (0-5); NEUTROPHILS 54 % (28-66)
[2019-12-29 10:14] LABS: PLATELET ESTIMATE NORMAL (NORMAL)
[2019-12-29 10:28] LABS: APPEARANCE, URINE HAZY (CLEAR); BACTERIA, URINE AUTO NEGATIVE (NEGATIVE); BILIRUBIN, URINE AUTO NEGATIVE (NEGATIVE); BLOOD, URINE BLOOD NEGATIVE (NEGATIVE); COLOR, URINE YELLOW (YELLOW); GLUCOSE, URINE (UA) AUTO NEGATIVE (NEGATIVE); KETONE, URINE AUTO TRACE mg/dL (NEGATIVE); LEUKOCYTE ESTERASE, URINE AUTO NEGATIVE (NEGATIVE); MUCUS, URINE SMALL (NEGATIVE); NITRITE, URINE AUTO NEGATIVE (NEGATIVE); PROTEIN, URINE AUTO NEGATIVE (NEGATIVE); RBC, URINE AUTO 1 /HPF (0-3); SPECIFIC GRAVITY URINE AUTO 1.021 (1.002-1.035); SQUAMOUS EPITHELIAL CELL UR AU 0 /HPF (0-6); UROBILINOGEN, URINE AUTO 0.2 mg/dL (0.0-2.0); WBC, URINE AUTO 1 /HPF (0-3)
[2020-02-06] MEDS ORDERED: METH2.5T48 PO (11:37)
[2020-02-07 04:32] LABS: ALT/SGPT 60 U/L (12-78); AMPHETAMINES LEVEL URINE NEGATIVE (NEGATIVE); BARBITURATES URINE NEGATIVE (NEGATIVE); BENZODIAZEPINES URINE NEGATIVE (NEGATIVE); BILIRUBIN,DIRECT 0.1 MG/DL (0.0-0.2); BILIRUBIN,TOTAL 0.5 MG/DL (0.2-1.0); BLOOD UREA NITROGEN 14 MG/DL (7-18); CANNABINOIDS URINE POSITIVE (NEGATIVE); CARBON DIOXIDE LEVEL 27 MEQ/L (21-32); CHLORIDE LEVEL 102 MEQ/L (98-107); COCAINE METABOLITE URINE NEGATIVE (NEGATIVE); CREATININE FOR GFR 0.72 MG/DL (0.70-1.30); GLOMERULAR FILTRATION RATE > 60.0 (>60); GLUCOSE, FASTING 101 MG/DL (70-100); LIPASE 174 U/L (73-393); METHADONE URINE NEGATIVE (NEGATIVE); OPIATES URINE NEGATIVE (NEGATIVE); PHENCYCLIDINE URINE NEGATIVE (NEGATIVE); POTASSIUM SERUM 3.3 MEQ/L (3.5-5.1); SODIUM LEVEL 138 MEQ/L (136-145); TOTAL PROTEIN 7.5 GM/DL (6.4-8.2); TROPONIN I < 0.02 NG/ML (< 0.10)
== END 2019-11-15 13:50 | disposition home or self-care (01) ==
LOC: M ED 10:16
DX: T40.7X1A Poisoning by cannabis (derivatives), accidental (unintentional), initial encounter (principal); R11.2 Nausea with vomiting, unspecified; E87.6 Hypokalemia; Y92.098 Other place in other non-institutional residence as the place of occurrence of the external cause; M06.9 Rheumatoid arthritis, unspecified; K21.9 Gastro-esophageal reflux disease without esophagitis; Z79.899 Other long term (current) drug therapy; Z79.52 Long term (current) use of systemic steroids

== ENCOUNTER 2019-11-17 08:00 | Inpatient (IN) | payer MEDICARE, MEDICAID ==
[~2019-11-17 08:00] MED LIST changes: -ONDANSETRON 4MG/2ML VIAL ONE; -PANTOPRAZOLE 40MG VIAL (C9113 PER 1) ONE
[2019-11-17] MEDS ORDERED: ONDANSETRON 4MG/2ML VIAL ONE ×2 (08:42→11:31)
[2019-11-17] MEDS ORDERED: GI COCKTAIL 50ML BTL(HYOSCYAMINE/MAALOX/LIDOCAINE VISCOUS)(1:3:1) ONE (11:23)
[2019-11-17] MEDS ORDERED: MORPHINE 4 MG/ML 1ML VIAL/SYRINGE (J2270) ONE ×2 (11:23→18:59)
[2019-11-17] MEDS ORDERED: ISOVUE-370 76% 100ML VIAL ONE (11:31)
[2019-11-17] MEDS ORDERED: METOCLOPRAMIDE INJ 10MG/2ML VIAL (J2765 PER 1) ONE (13:10)
[2019-11-18] MEDS ORDERED: GABAPENTIN 300 MG CAP As Ordered ONE ×4 (00:45→21:17)
[2019-11-18] MEDS ORDERED: SUCRALFATE SUSP 1GM/10ML UD ONE ×5 (00:45→21:17)
[2019-11-18] MEDS ORDERED: KETOROLAC 30 MG/ML 1ML VIAL As Ordered ONE (00:45)
[2019-11-18] MEDS ORDERED: KETOROLAC 30 MG/ML 1ML VIAL ONE (00:45)
[2019-11-18] MEDS ORDERED: ONDANSETRON 4MG/2ML VIAL ONE (00:45)
[2019-11-18] MEDS ORDERED: SUCRALFATE SUSP 1GM/10ML UD As Ordered ONE ×5 (00:45→21:17)
[2019-11-18] MEDS ORDERED: predniSONE 10 MG TAB As Ordered ONE ×4 (00:46→21:17)
[2019-11-18] MEDS ORDERED: ONDANSETRON 4MG/2ML VIAL As Ordered ONE ×2 (00:47→18:55)
[2019-11-18] MEDS ORDERED: MORPHINE 4 MG/ML 1ML VIAL/SYRINGE (J2270) ONE (05:50)
[2019-11-18] MEDS ORDERED: MORPHINE 4 MG/ML 1ML VIAL/SYRINGE (J2270) As Ordered ONE (05:50)
[2019-11-18] MEDS ORDERED: METOCLOPRAMIDE INJ 10MG/2ML VIAL (J2765 PER 1) ONE (05:50)
[2019-11-18] MEDS ORDERED: METOCLOPRAMIDE INJ 10MG/2ML VIAL (J2765 PER 1) As Ordered ONE (05:52)
[2019-11-18] MEDS ORDERED: PANTOPRAZOLE 40MG VIAL (C9113 PER 1) ONE (10:42)
[2019-11-18] MEDS ORDERED: ENOXAPARIN 40MG/0.4ML SYRINGE (J1650 PER 10MG) ONE (10:42)
[2019-11-18] MEDS ORDERED: GABAPENTIN 300 MG CAP ONE ×3 (10:42→21:17)
[2019-11-18] MEDS ORDERED: PANTOPRAZOLE 40MG VIAL (C9113 PER 1) As Ordered ONE (10:42)
[2019-11-18] MEDS ORDERED: ENOXAPARIN 40MG/0.4ML SYRINGE (J1650 PER 10MG) As Ordered ONE (10:43)
[2019-11-18] MEDS ORDERED: predniSONE 10 MG TAB ONE ×2 (14:24→21:17)
[2019-11-18] MEDS ORDERED: POTASSIUM CHLORIDE 10 MEQ SR TABLET ONE (14:24)
[2019-11-18] MEDS ORDERED: POTASSIUM CHLORIDE 10 MEQ SR TABLET As Ordered ONE (17:02)
[2019-11-19] MEDS ORDERED: ONDANSETRON 4MG/2ML VIAL As Ordered ONE ×2 (05:50→10:38)
[2019-11-19] MEDS ORDERED: ONDANSETRON 4MG/2ML VIAL ONE ×2 (05:50→10:38)
[2019-11-19] MEDS ORDERED: GABAPENTIN 300 MG CAP ONE (09:35)
[2019-11-19] MEDS ORDERED: PANTOPRAZOLE 40MG VIAL (C9113 PER 1) ONE (09:35)
[2019-11-19] MEDS ORDERED: predniSONE 10 MG TAB ONE (09:35)
[2019-11-19] MEDS ORDERED: ENOXAPARIN 40MG/0.4ML SYRINGE (J1650 PER 10MG) ONE (09:35)
[2019-11-19] MEDS ORDERED: SUCRALFATE SUSP 1GM/10ML UD ONE (09:35)
[2019-11-19] MEDS ORDERED: PANTOPRAZOLE 40MG VIAL (C9113 PER 1) As Ordered ONE (09:35)
[2019-11-19] MEDS ORDERED: SUCRALFATE SUSP 1GM/10ML UD As Ordered ONE (09:36)
[2019-11-19] MEDS ORDERED: GABAPENTIN 300 MG CAP As Ordered ONE (09:36)
[2019-11-19] MEDS ORDERED: ENOXAPARIN 40MG/0.4ML SYRINGE (J1650 PER 10MG) As Ordered ONE (09:37)
[2019-11-19] MEDS ORDERED: predniSONE 10 MG TAB As Ordered ONE (09:37)
[2020-01-01 10:55] LABS: HEMATOCRIT 32.1 % (42.0-52.0); HEMOGLOBIN 11.1 g/dl (13.5-17.5); MEAN CORPUSCULAR HEMOGLOBIN 37.9 pg (27.0-33.0); MEAN CORPUSCULAR HGB CONC 34.6 g/dl (32.0-36.5); MEAN CORPUSCULAR VOLUME 109.6 fl (80.0-96.0); PLATELET COUNT, AUTOMATED 241 10^3/uL (150-450); RED BLOOD COUNT 2.93 10^6/uL (4.30-6.10)
[2020-01-01 10:57] LABS: ATYPICAL LYMPH 6 % (0-5); EOSINOPHILS 1 % (0-3); LYMPHOCYTES 28 % (16-44); MONOCYTES 15 % (0-5); NEUTROPHILS 50 % (28-66)
[2020-01-01 10:58] LABS: ANISOCYTOSIS 1+; PLATELET ESTIMATE NORMAL (NORMAL)
[2020-01-01 13:54] LABS: APPEARANCE, URINE MANUAL CLEAR (CLEAR); BILIRUBIN, URINE MANUAL NEGATIVE (NEGATIVE); BLOOD URINE MANUAL NEGATIVE (NEGATIVE); COLOR, URINE MANUAL AMBER (YELLOW); GLUCOSE, URINE (UA) MANUAL NEGATIVE (NEGATIVE); KETONE, URINE MANUAL NEGATIVE (NEGATIVE); LEUKOCYTE ESTERASE, URINE MAN NEGATIVE (NEGATIVE); NITRITE, URINE MANUAL NEGATIVE (NEGATIVE); PROTEIN, URINE MANUAL TRACE mg/dL (NEGATIVE); UROBILINOGEN, URINE MANUAL NORMAL (NORMAL)
[2020-01-01 13:55] LABS: BACTERIA, URINE NONE SEEN; HYALINE CAST, URINE NONE SEEN /lpf (0-1); MUCUS, URINE SMALL AMOUNT (NEGATIVE); RBC, URINE 0-1 /hpf (0-3); SQUAMOUS EPITHELIAL CELL URINE NONE SEEN /hpf (SMALL AMT); WBC, URINE NONE SEEN /hpf (0-3)
[2020-01-14 18:14] LABS: BASO % 0.3 % (0.0-1.0); EOS # 0.1 10^3/uL (0.0-0.5); EOS % 0.8 % (0.0-3.0); HEMATOCRIT 29.5 % (42.0-52.0); HEMOGLOBIN 9.9 g/dl (13.5-17.5); LYMPH # 2.2 10^3/uL (1.5-5.0); LYMPH % 35.3 % (24.0-44.0); MEAN CORPUSCULAR HEMOGLOBIN 37.5 pg (27.0-33.0); MEAN CORPUSCULAR HGB CONC 33.6 g/dl (32.0-36.5); MEAN CORPUSCULAR VOLUME 111.7 fl (80.0-96.0); MONO # 0.8 10^3/uL (0.0-0.8); MONO % 13.4 % (0.0-5.0); NEUTROPHILS # 3.1 10^3/uL (1.5-8.5); NEUTROPHILS % 49.6 % (36.0-66.0); PLATELET COUNT, AUTOMATED 225 10^3/uL (150-450); RED BLOOD COUNT 2.64 10^6/uL (4.30-6.10); WHITE BLOOD COUNT 6.3 10^3/uL (4.0-10.0)
[2020-02-06] MEDS ORDERED: METH2.5T48 PO (11:37)
[2020-02-09 13:15] LABS: ALBUMIN 3.9 GM/DL (3.2-5.2); BILIRUBIN,DIRECT 0.2 MG/DL (0.0-0.2); BILIRUBIN,TOTAL 0.7 MG/DL (0.2-1.0); TOTAL PROTEIN 7.5 GM/DL (6.4-8.2)
[2020-02-11 10:34] LABS: BLOOD UREA NITROGEN 9 MG/DL (7-18); CALCIUM LEVEL 8.3 MG/DL (8.5-10.1); CARBON DIOXIDE LEVEL 26 MEQ/L (21-32); CHLORIDE LEVEL 106 MEQ/L (98-107); CREATININE FOR GFR 0.68 MG/DL (0.70-1.30); GLOMERULAR FILTRATION RATE > 60.0 (>60); GLUCOSE, FASTING 107 MG/DL (70-100); MAGNESIUM LEVEL 1.9 MG/DL (1.8-2.4); POTASSIUM SERUM 3.4 MEQ/L (3.5-5.1); SODIUM LEVEL 138 MEQ/L (136-145)
== END 2019-11-19 13:45 | disposition home or self-care (01) | DRG 394 ==
LOC: M ED 08:00 → M MS5PR 14:40
PROVIDERS: ADMIT Internal Medicine Nephrology; ATTEND Internal Medicine Nephrology
DX: R11.15 Cyclical vomiting syndrome unrelated to migraine (principal); Q44.6 Cystic disease of liver; F12.10 Cannabis abuse, uncomplicated; L40.50 Arthropathic psoriasis, unspecified; G62.9 Polyneuropathy, unspecified; M06.9 Rheumatoid arthritis, unspecified; E55.9 Vitamin D deficiency, unspecified; E53.8 Deficiency of other specified B group vitamins; Z79.899 Other long term (current) drug therapy

== ENCOUNTER 2019-11-20 05:30 | Emergency (ER) | payer MEDICARE, MEDICAID ==
[2019-11-20] MEDS ORDERED: ONDANSETRON 4 MG ORAL DISINTEGRATING TAB ONE (05:42)
[2020-02-06] MEDS ORDERED: METH2.5T48 PO (11:37)
== END 2019-11-20 05:50 | disposition home or self-care (01) ==
LOC: M ED 05:30
DX: F12.10 Cannabis abuse, uncomplicated (principal); K21.9 Gastro-esophageal reflux disease without esophagitis; K31.84 Gastroparesis; Z79.899 Other long term (current) drug therapy
CPT/HCPCS: 99283; Q0162

== ENCOUNTER 2019-12-09 13:42 | Emergency (ER) | payer MEDICARE, MEDICAID ==
[~2019-12-09] VITALS: Ht 180.3 cm; Wt 87.7 kg
[2019-12-09] MEDS ORDERED: ceFAZolin SOD 2 GM in IV 1 EA IV ONE (14:15)
[2019-12-09 15:05] LABS: BASO % 0.3 % (0.0-1.0); EOS % 0.1 % (0.0-3.0); HEMATOCRIT 29.8 % (42.0-52.0); HEMOGLOBIN 9.7 g/dl (13.5-17.5); LYMPH # 1.7 10^3/uL (1.5-5.0); LYMPH % 23.1 % (24.0-44.0); MEAN CORPUSCULAR HEMOGLOBIN 37.2 pg (27.0-33.0); MEAN CORPUSCULAR HGB CONC 32.6 g/dl (32.0-36.5); MONO # 0.8 10^3/uL (0.0-0.8); MONO % 11.2 % (0.0-5.0); NEUTROPHILS # 4.6 10^3/uL (1.5-8.5); NEUTROPHILS % 64.3 % (36.0-66.0); PLATELET COUNT, AUTOMATED 308 10^3/uL (150-450); RED BLOOD COUNT 2.61 10^6/uL (4.30-6.10); WHITE BLOOD COUNT 7.2 10^3/uL (4.0-10.0)
[2019-12-09 15:07] LABS: MEAN CORPUSCULAR VOLUME 114.2 fl (80.0-96.0)
[2019-12-09 15:25] LABS: ERYTHROCYTE SEDIMENTATION RATE 60 mm/hr (0-15)
[2019-12-09 15:26] LABS: BLOOD UREA NITROGEN 9 MG/DL (7-18); C REACTIVE PROTEIN QUANTITATIV 2.39 MG/DL (0.00-0.30); CALCIUM LEVEL 9.1 MG/DL (8.5-10.1); CARBON DIOXIDE LEVEL 28 MEQ/L (21-32); CHLORIDE LEVEL 104 MEQ/L (98-107); CREATININE FOR GFR 0.66 MG/DL (0.70-1.30); GLOMERULAR FILTRATION RATE > 60.0 (>60); GLUCOSE, FASTING 135 MG/DL (70-100); POTASSIUM SERUM 4.2 MEQ/L (3.5-5.1); SODIUM LEVEL 139 MEQ/L (136-145)
[2019-12-09] MEDS ORDERED: KEFL500C17 PO (16:09)
[2019-12-09] MEDS ORDERED: BACT800T5 PO (16:09)
[2019-12-09 16:20] VITALS: BP 137/82
[2020-02-06] MEDS ORDERED: METH2.5T48 PO (11:37)
== END 2019-12-09 16:24 | disposition home or self-care (01) ==
LOC: M ED 13:42
DX: L03.113 Cellulitis of right upper limb (principal); D64.9 Anemia, unspecified; K21.9 Gastro-esophageal reflux disease without esophagitis; F32.9 Major depressive disorder, single episode, unspecified; C91.60 Prolymphocytic leukemia of T-cell type not having achieved remission; C91.Z0 Other lymphoid leukemia not having achieved remission; Z79.899 Other long term (current) drug therapy; Z79.52 Long term (current) use of systemic steroids; Z96.642 Presence of left artificial hip joint
CPT/HCPCS: 80048; 85025; 85652; 86140; 87040; 96365; 99283; J0690

== ENCOUNTER → 2020-01-09 | Outpatient (CLI) | payer MEDICARE, MEDICAID ==
--- NOTE | 2020-01-11 13:18 | DEXA ---
AP SPINE L1 - L4 1.164 -0.2 -0.6 LT FEMUR TOTAL Hip Replacement LT NECK RT FEMUR TOTAL 0.613 -3.1 -3.2 RT NECK 0.672 -2.6 -2.7 TOTAL BODY TOTAL OTHER COMMENTS: Normal Bone Densitometry of the spine. There is Osteoporosis of the right hip. FOLLOW-UP: Recommendation for the next bone density exam: 2 years. MADIHA
== END ==
LOC: M WHC 11:19
PROVIDERS: ATTEND Nurse Practitioner
DX: L40.50 Arthropathic psoriasis, unspecified (principal); Z87.39 Personal history of other diseases of the musculoskeletal system and connective tissue; M81.0 Age-related osteoporosis without current pathological fracture

== ENCOUNTER 2020-02-21 11:06 | Outpatient (CLI) | payer MEDICARE, MEDICAID ==
[2020-02-21] VITALS (9 sets, daily range): BP systolic 110–128; BP diastolic 55–86
[~2020-02-21] VITALS: Ht 180.3 cm; Wt 87.5 kg
[~2020-02-21 11:06] MED LIST changes: +METH2.5T48 PO
[2020-02-21] MEDS ORDERED: diphenhydrAMINE 25MG CAP PO ONE (12:00)
[2020-02-21] MEDS ORDERED: ACETAMINOPHEN TAB 650MG DOSE (2X325MG) PO ONE (12:00)
== END 2020-02-21 17:00 | disposition home or self-care (01) ==
LOC: M INFU 11:06
PROVIDERS: ATTEND Specialist
DX: D64.9 Anemia, unspecified (principal)
CPT/HCPCS: 36415; 36430; 85025; 86850; 86900; 86901; 86920; G0463; P9016

== ENCOUNTER 2020-02-23 16:43 | Emergency (ER) | payer MEDICARE, MEDICAID ==
[~2020-02-23] VITALS: Ht 180.3 cm; Wt 87.7 kg
[2020-02-23 16:56] VITALS: BP 120/73
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
[2020-02-23] MEDS ORDERED: PERC5TAB12 PO (18:58)
[2020-02-23] MEDS ORDERED: KETO10TAB PO (18:58)
[2020-02-23] MEDS ORDERED: OXYCODONE/APAP 5MG/325MG(BULK FOR ED) 1 TABLET PO ONE (19:00)
[2020-02-23] MEDS ORDERED: KETOROLAC 30 MG/ML 1ML VIAL IM ONE (19:00)
[2020-02-23 19:17] LABS: HEMATOCRIT 22.5 % (42.0-52.0); HEMOGLOBIN 7.4 g/dl (13.5-17.5); MEAN CORPUSCULAR HEMOGLOBIN 33.5 pg (27.0-33.0); MEAN CORPUSCULAR HGB CONC 32.9 g/dl (32.0-36.5); MEAN CORPUSCULAR VOLUME 101.8 fl (80.0-96.0); PLATELET COUNT, AUTOMATED 301 10^3/uL (150-450); RED BLOOD COUNT 2.21 10^6/uL (4.30-6.10); WHITE BLOOD COUNT 6.9 10^3/uL (4.0-10.0)
[2020-02-23] MEDS ORDERED: GABAPENTIN 300 MG CAP PO ONE (19:30)
[2020-03-06] MEDS ORDERED: BACL1TAB8 PO (14:48)
[2020-03-06] MEDS ORDERED: TRAM50TA2 PO (14:48)
== END 2020-02-23 19:28 | disposition home or self-care (01) ==
LOC: EDBD 16:43 → M ED 16:43
DX: M25.522 Pain in left elbow (principal); M25.512 Pain in left shoulder; M25.572 Pain in left ankle and joints of left foot; V00.141A Fall from scooter (nonmotorized), initial encounter; Y92.89 Other specified places as the place of occurrence of the external cause; C91.60 Prolymphocytic leukemia of T-cell type not having achieved remission; F32.9 Major depressive disorder, single episode, unspecified; M06.9 Rheumatoid arthritis, unspecified; Z79.899 Other long term (current) drug therapy; Z79.52 Long term (current) use of systemic steroids
CPT/HCPCS: 36415; 71045; 73030; 73080; 73110; 73564; 73610; 73630; 85027; 96372; 99284; J1885

== ENCOUNTER 2020-03-07 14:44 | Outpatient (CLI) | payer MEDICARE, MEDICAID ==
[~2020-03-07] VITALS: Ht 180.3 cm; Wt 81.5 kg
[~2020-03-07 14:44] MED LIST changes: +ACETAMINOPHEN TAB 650MG DOSE (2X325MG) PO SCH; -FOLI0.4T PO; +FOLI0.4T5 PO; +KETO10TAB PO; +PERC5TAB12 PO; +diphenhydrAMINE 25MG CAP PO SCH
[2020-03-07 14:53] VITALS: BP 122/79
[2020-03-07 16:39] VITALS: BP 114/69
[2020-03-07 17:56] VITALS: BP 112/61
== END 2020-03-07 18:00 | disposition home or self-care (01) ==
LOC: M INFU 14:44
PROVIDERS: ATTEND Specialist
DX: C91.60 Prolymphocytic leukemia of T-cell type not having achieved remission (principal)
CPT/HCPCS: 36415; 36430; 86850; 86900; 86901; 86920; P9016

== ENCOUNTER 2020-03-14 09:11 | Outpatient (CLI) | payer MEDICARE, MEDICAID ==
[~2020-03-14] VITALS: Ht 180.3 cm; Wt 87.7 kg
[2020-03-14] VITALS (7 sets, daily range): BP systolic 108–134; BP diastolic 58–79
== END 2020-03-14 13:45 | disposition home or self-care (01) ==
LOC: M INFU 09:11
PROVIDERS: ATTEND Internal Medicine Medical Oncology
DX: D64.9 Anemia, unspecified (principal)
CPT/HCPCS: 36430; P9016

== ENCOUNTER 2020-04-03 06:45 | Outpatient (CLI) | payer MEDICARE, MEDICAID ==
[~2020-04-03] VITALS: Ht 180.3 cm; Wt 86.3 kg
[~2020-04-03 06:45] MED LIST changes: -ACETAMINOPHEN TAB 650MG DOSE (2X325MG) PO SCH; -diphenhydrAMINE 25MG CAP PO SCH
[2020-04-03 06:50] VITALS: BP 120/67
[2020-04-03] MEDS ORDERED: diphenhydrAMINE 25MG CAP PO ONE (07:15)
[2020-04-03] MEDS ORDERED: ACETAMINOPHEN TAB 650MG DOSE (2X325MG) PO ONE (07:15)
[2020-04-03 07:40] VITALS: BP 108/65
[2020-04-03 09:10] VITALS: BP 100/59
[2020-04-03 10:15] VITALS: BP 107/62
[2020-04-03 11:30] VITALS: BP 121/80
== END 2020-04-03 11:30 | disposition home or self-care (01) ==
LOC: M INFU 06:45
PROVIDERS: ATTEND Internal Medicine Hematology & Oncology
DX: D64.9 Anemia, unspecified (principal)
CPT/HCPCS: 36430; P9016

== ENCOUNTER 2020-04-09 15:31 | Outpatient (CLI) | payer MEDICARE, MEDICAID ==
[~2020-04-09] VITALS: Ht 180.3 cm; Wt 86.4 kg
[2020-04-09 15:45] VITALS: BP 121/79
[2020-04-09] MEDS ORDERED: diphenhydrAMINE 25MG CAP PO ONE (16:00)
[2020-04-09] MEDS ORDERED: ACETAMINOPHEN TAB 650MG DOSE (2X325MG) PO ONE (16:00)
[2020-04-09 18:15] VITALS: BP 124/74
== END 2020-04-09 18:30 | disposition home or self-care (01) ==
LOC: M INFU 15:31
PROVIDERS: ATTEND Internal Medicine Hematology & Oncology
DX: C91.50 Adult T-cell lymphoma/leukemia (HTLV-1-associated) not having achieved remission (principal); D64.81 Anemia due to antineoplastic chemotherapy
CPT/HCPCS: 36415; 36430; 85025; 86850; 86900; 86901; 86920; 96372; J0885; P9016

== ENCOUNTER 2020-04-10 07:47 | Outpatient (CLI) | payer MEDICARE, MEDICAID ==
[~2020-04-10] VITALS: Ht 180.3 cm; Wt 86.3 kg
[~2020-04-10 07:47] MED LIST changes: +ACETAMINOPHEN TAB 650MG DOSE (2X325MG) PO SCH; +diphenhydrAMINE 25MG CAP PO SCH
[2020-04-10 08:45] VITALS: BP 132/70
[2020-04-10 09:00] VITALS: BP 130/60
[2020-04-10 10:00] VITALS: BP 140/70
[2020-04-10 10:36] VITALS: BP 121/65
== END 2020-04-10 10:55 | disposition home or self-care (01) ==
LOC: M INFU 07:47
PROVIDERS: ATTEND Internal Medicine Hematology & Oncology
DX: D64.81 Anemia due to antineoplastic chemotherapy (principal)
CPT/HCPCS: 36430; P9016

== ENCOUNTER → 2020-04-11 | Outpatient (CLI) | payer MEDICARE, MEDICAID ==
[~2020-04-11] MED LIST changes: -ACETAMINOPHEN TAB 650MG DOSE (2X325MG) PO SCH; -diphenhydrAMINE 25MG CAP PO SCH
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
== END ==
LOC: M RAD 12:22
PROVIDERS: ATTEND Internal Medicine Nephrology
DX: K31.84 Gastroparesis (principal)
CPT/HCPCS: 78264; A9541

== ENCOUNTER 2020-04-23 14:37 | Inpatient (IN) | payer MEDICARE, MEDICAID ==
[~2020-04-23] VITALS: Ht 177.8 cm; Wt 84.1 kg
[~2020-04-23 14:37] MED LIST changes: -ALEN70TA74 PO; +ALEN70TA82 PO
[2020-04-23 15:42] LABS: ALBUMIN 3.8 GM/DL (3.2-5.2); ALT/SGPT 45 U/L (12-78); BILIRUBIN,DIRECT 0.1 MG/DL (0.0-0.2); BILIRUBIN,TOTAL 0.2 MG/DL (0.2-1.0); BLOOD UREA NITROGEN 13 MG/DL (7-18); CARBON DIOXIDE LEVEL 26 MEQ/L (21-32); CHLORIDE LEVEL 103 MEQ/L (98-107); CK-MB VALUE MASS 1.1 NG/ML (<3.6); CPK CREATINE PHOSPHOKINASE 39 U/L (39-308); CREATININE FOR GFR 0.81 MG/DL (0.70-1.30); GLOMERULAR FILTRATION RATE > 60.0 (>60); GLUCOSE, FASTING 107 MG/DL (70-100); LIPASE 135 U/L (73-393); MB/CK RELATIVE INDEX 2.82 (< OR =4); POTASSIUM SERUM 4.1 MEQ/L (3.5-5.1); SODIUM LEVEL 136 MEQ/L (136-145); TOTAL PROTEIN 7.4 GM/DL (6.4-8.2); TROPONIN I < 0.02 NG/ML (< 0.10)
[2020-04-23 17:00] LABS: MEAN CORPUSCULAR HEMOGLOBIN 29.1 pg (27.0-33.0); MEAN CORPUSCULAR HGB CONC 31.4 g/dl (32.0-36.5); MEAN CORPUSCULAR VOLUME 92.4 fl (80.0-96.0); PLATELET COUNT, AUTOMATED 304 10^3/uL (150-450); RED BLOOD COUNT 1.72 10^6/uL (4.30-6.10); WHITE BLOOD COUNT 5.3 10^3/uL (4.0-10.0)
[2020-04-23 17:03] LABS: HEMATOCRIT 15.9 % (42.0-52.0)
--- OUTSIDE RECORDS SUMMARY | 2020-04-23 17:13 | CCD ---
Author Organization Unknown Address [address] [place] [address] Phone [phone] Care Team Providers Care Sample Processor Name Role Phone Maria Esther Jin Unavailable Unavailable Allergies None recorded. Medications Name Status Start Date Stop Date alendronate 70 mg tablet Active Not rebecca ilable baclofen 10 mg tablet Active Not availa ble celecoxib 200 mg capsule Active Not rebecca ilable cephalexin 500 mg capsule Active Not av ailable cyclophosphamide 50 mg capsule Active N ot available deferasirox 360 mg tablet Active Not av ailable gabapentin 600 mg tablet Active Not rebecca ilable omeprazole 20 mg capsule,delayed release Active Not available ondansetron 4 mg disintegrating tablet Active Not available prednisone 10 mg tablet Active Not avai lable prednisone 5 mg tablet Active Not avail able sulfamethoxazole 800 mg-trimethoprim 160 mg tablet Active Not available Taltz Autoinjector 80 mg/mL subcutaneous Active Not available tramadol 50 mg tablet Active Not availa ble Problems Name Status Onset Date Source Cannabis Abuse Active 05/07/2014 History Clinical Finding Active 05/07/2014 History Overweight Active 12/29/2017 History Body Mass Index 25-29 - Overweight Active 12/29/2017 History Chronic Fatigue Syndrome Active 12/29/2017 History Psoriasis with Arthropathy Active 12/29/2017 Histo ry Confined to Chair Active 12/29/2017 History Situation with Explicit Context Active 12/29/2017 History Finding Related to Sleep Active 12/29/2017 History Clinical Finding Active 02/22/2018 History Leukocytosis Active 04/19/2018 History Leukemoid Reaction of the [place] Active 04/19/2018 History Irritability and Anger Active 04/19/2018 History Generalized Anxiety Disorder Active 04/25/2018 His tory Cellulitis Active 07/18/2018 History Laceration of Lung without Open Wound into Thorax Active 07/18/2018 History Finding of Lower Limb Active 07/18/2018 History Leukemia Active 12/27/2018 History Aphthous Ulcer of Mouth Active 12/27/2018 History Finding by Site Active 04/26/2019 History Finding of Ankle or Foot Active 08/31/2019 History Closed Trimalleolar Fracture Active 09/22/2019 His tory Finding by Site Active 09/22/2019 History Procedures Notes: Left TH replacement 2006, right h and tendon rupture repair- 2015 Results Lab Results None recorded. Past Encounters 01/29/2020 Generalized Anxiety Disorder; Severe Recurrent Major Depression without Psychotic Features; Posttraumatic Stress Disorder; Panic Disorder Kaci Peralta, [facility]: [address] [place] [phone], Ph. Social History None recorded. Vaccine List None recorded. Plan of Care Reminders Provider Appointments None recorded. Lab None recorded. Referral None recorded. Procedures None recorded. Surgeries None recorded. Imaging None recorded. Vitals 10/23/2019 Height Weight Blood Pressure 71 in 203 lbs 112/75 mm[Hg] 09/22/2019 Height Weight Blood Pressure 71 in 197 lbs 8 oz 123/87 mm[Hg] 09/07/2019 Height Weight Blood Pressure 71 in 201 lbs 115/68 mm[Hg] 08/31/2019 Height 71 in 04/26/2019 Height Weight Blood Pressure 71 in 208 lbs 110/76 mm[Hg] 12/27/2018 Height Weight Blood Pressure 71 in 202 lbs 4 oz 131/88 mm[Hg] 08/02/2018 Height Weight Blood Pressure 71 in 197 lbs 2.08 oz 139/81 mm[Hg] 07/29/2018 Height Weight Blood Pressure 71 in 202 lbs 4 oz 130/80 mm[Hg] 07/18/2018 Height Weight Blood Pressure 71 in 209 lbs 145/88 mm[Hg] 04/19/2018 Height Weight Blood Pressure 71 in 197 lbs 6.08 oz 129/87 mm[Hg]
--- OUTSIDE RECORDS SUMMARY | 2020-04-23 17:13 | CCD | Summary of Care ---
Author Author [facility] Organization [facility] Address Unknown Phone Unavailable Care Team Providers Care Wax Blender Name Role Phone System, Provider Not In PCP Unavailable Reason for Referral * External Surgery Case (Routine) Referred By Contact Referred To Contact Status Reason Specialty Diagnoses / Procedures Mulugeta Cuello MD [address] [place] [address] Email: [email or web address] Open Diagnoses Rheumatoid arthritis of left ankle, unspecified whether rheumatoid factor present P rocedures Surgery Case Request, Outside Facility ONLY Reason for Visit * Reason Comments New Patient Left foot/ankle pain after walking during summer Encounter Details Care Team Description Date Type Department Mulugeta Cuello MD [address] [place] [address] Rheumatoid arthritis of left ankle, unsp ecified whether rheumatoid factor present (Primary Dx) 03/20/2020 Office Visit [facility] , [facility] [address] Zach [address] [place] [phone] Allergies No Known Allergiesdocumented as of this encounter (statuses as of 03/20/2020) Medications End Date Status Medication Sig Dispensed Refills Start Date Active azithromycin (ZITHROMAX) Take 500 mg 0 12/19 500 MG tablet by mouth 8 daily Active Adalimumab (HUMIRA Inject 40 mg 2 each 3 PEN-CD/UC/HS STARTER) 40 into the skin 9 MG/0.8ML PNKT every 14 (fourteen) days Active cefuroxime (CEFTIN) 500 cefuroxime 0 MG tablet axetil 500 mg tabs Active doxycycline (VIBRAMYCIN) doxycycline 0 100 MG capsule hyclate 100 mg caps Active Iron-Vitamin C (IRON Use as 0 100/C) 100-250 MG TABS directed 200 mg in the mouth or throat Active gabapentin (NEURONTIN) Use as 0 600 MG tablet directed 600 mg in the mouth or throat Three times daily Active vitamin B-12 Use as 0 (CYANOCOBALAMIN) 500 MCG directed 500 9 tablet mg in the mouth or throat daily Active ferrous sulfate 325 (65 Take 1 tablet 0 FE) MG tablet by mouth Two 9 Times Daily Active acyclovir (ZOVIRAX) 400 Take 400 mg 3 MG tablet by mouth Two 9 Times Daily Active prochlorperazine prochlorperaz 0 (COMPAZINE) 10 MG tablet ine maleate 10 mg tabs Active ondansetron (ZOFRAN) 8 MG Take 8 mg by 0 tablet mouth every 8 (eight) hours as needed for Nausea or Vomiting Active omeprazole (PRILOSEC) 20 Take 1 180 capsule 2 1 MG capsuleIndications: capsule by 9 Gastroesophageal reflux mouth Two disease without Times Daily esophagitis 01/01/2021 Active Alendronate Sodium 70 MG Take 1 tablet 4 tablet 11 Oral Tablet (Fosamax) by mouth 0 every 7 (seven) days 01/01/2021 Active Oscal 500/200 D-3 500-200 Take 1 tablet 60 tablet 11 MG-UNIT Oral Tablet by mouth Two 0 (calcium-vitamin D) Times Daily Active Taltz 80 MG/ML INJECT 1 1 mL 3 Subcutaneous Solution SYRINGE INTO 0 Auto-injector THE SKIN (ixekizumab) EVERY 28 DAYS Active predniSONE 5 MG Oral TAKE ONE 30 tablet 1 02/22 Tablet (DELTASONE) TABLET BY 0 MOUTH TWICE DAILY Active predniSONE 10 MG Oral TAKE ONE 30 tablet 1 12/ Tablet (DELTASONE) TABLET BY 0 MOUTH ONCE DAILY Active traMADol HCl 50 MG Oral tramadol 50 0 Tablet (ULTRAM) mg tablet TAKE ONE TABLET TWICE DAILY NEEDED MAX DAILY DOSE TWO TABLETS Active Ondansetron 4 MG Oral ondansetron 4 0 Tablet Disintegrating mg (ZOFRAN-ODT) disintegratin g tablet DISSOLVE ONE TABLET UNDER THE TONGUE EVERY SIX HOURS NEEDED Active Cyclophosphamide 50 MG Take 50 mg by 0 02 Oral Capsule (CYTOXAN) mouth daily 0 Active Baclofen 10 MG Oral TAKE ONE 0 Tablet (LIORESAL) TABLET BY 0 MOUTH TWICE DAILY NEEDED Active Acetaminophen ER 650 MG Mapap 0 Oral Tablet Extended Arthritis Release (Mapap Arthritis Pain 650 mg Pain) tablet,extend ed release TAKE ONE TABLET BY MOUTH EVERY 8 HOURS Active Vitamin D 50 MCG (1999 Take 2,000 0 UT) Oral Tablet Units by mouth daily 03/20/2020 Discontinued ibuprofen (ADVIL,MOTRIN) Take 200 mg 0 200 MG tablet by mouth every 6 (six) hours as needed for Pain 03/20/2020 Discontinued alendronate (FOSAMAX) 70 alendronate 0 MG tablet 70 mg tablet 1 tab weekly 03/20/2020 Discontinued ibuprofen (ADVIL,MOTRIN) TAKE ONE 0 08/04 600 MG tablet TABLET BY 9 MOUTH THREE TIMES DAILY NEEDED 03/20/2020 Discontinued deferasirox (EXJADE) 500 0 12/23/201 MG disintegrating tablet 9 03/20/2020 Discontinued deferasirox (EXJADE) 250 0 12/23/201 MG disintegrating tablet 9 03/20/2020 Discontinued traMADol HCl 50 MG Oral TAKE ONE 0 Tablet (ULTRAM) TABLET TWICE 0 DAILY NEEDED MAX DAILY DOSE TWO TABLETS documented as of this encounter (statuses as of 03/20/2020) Active Problems Problem Noted Date History of osteoporosis 01/03/2020 Qureshi's fracture of right radius 02/12/2015 Status post fusion of wrist 02/12/2015 Anemia of infection and chronic disease 05/13/2013 High risk medication use 04/03/2013 KIP (juvenile idiopathic arthritis) 11/30/2011 Last Assessment & Plan: Currently on Enbrel 50 Mg once a week, Sulfasalazine 500 mg Po BID, MTX 25 mg q weekly and Prednisone 10 mg BID. Ongoing disease activity. He has a YUE positive at 250, which is probably Enbrel induced. Will discontinue Enbrel for now and start Orencia. First infusion of 750 mg in MANJINDER. And there after 125 mg /sc once a week. PSA (psoriatic arthritis) 11/30/2011 Last Assessment & Plan: Currently on Enbrel 50 Mg once a week, Sulfasalazine 500 mg Po BID, MTX 25 mg q weekly and Prednisone 10 mg BID. Ongoing moderate disease activity. documented as of this encounter (statuses as of 03/20/2020) Resolved Problems Problem Noted Date Resolved Date Osteoporosis 01/03/2020 01/03/2020 documented as of this encounter (statuses as of 03/20/2020) Immunizations Name Administration Dates Next Due Influenza Split Trivalent 04/16/2014 preservative free PPD Placement 04/16/2014 Pneumococcal 04/16/2014 Polysaccharide PPV23 documented as of this encounter Social History Date Tobacco Use Types Packs/Day Years Used Quit: 11/30/1995 Former Smoker Cigarettes 0.3 3 Smokeless Tobacco: Never Used Drinks/Week oz/Week Comments Alcohol Use No Sex Assigned at Date Recorded Not on file Date Recorded COVID-19 Exposure Response 03/20/2020 9:10 AM EST In the last month, have you been in contact with No / Unsure someone who was confirmed or suspected to have Coronavirus / COVID-19? documented as of this encounter Last Filed Vital Signs Reading Time Taken Comments Vital Sign 109/70 03/20/2020 9:41 AM EST Blood Pressure 83 03/20/2020 9:41 AM EST Pulse - - Temperature - - Respiratory Rate - - Oxygen Saturation - - Inhaled Oxygen Concentration 87.5 kg (193 lb) 03/20/2020 9:41 AM EST Weight 180.3 cm (5' 11") 03/20/2020 9:41 AM EST Height 26.92 03/20/2020 9:41 AM EST Body Mass Index documented in this encounter Progress Notes * Kyle Thompson MD - 03/20/2020 9:20 AM EST Chief Complaint: Chief Complaint Patient presents with New Patient Left foot/ankle pain after walking during summer HPI: Ronald Carrillo is a 39 y.o. male who presents to clinic today with left foot and ankle pain and deformity. Patient reports that over the last year he has gannon d significant deformity and pain to his left ankle and foot. Of note patient gannon s rheumatoid arthritis is been treated on multiple medications including chronic systemic corticosteroids for which she is taken for about 20 years. Patient re ports that he began to develop more pain and deformity to his left ankle and kinza t beginning about a year ago. This is progressively gotten worse to the point t hat he is no longer ambulatory. He reports that he has severe pain on both the medial and lateral aspect of his ankle, with some of this pain traveling down th e lateral aspect of his foot. He has been seeing Dr. Cui for his left foot and ankle deformity. Due to the patient's chronic corticosteroid use and the fa ct that Dr. Cui is moving no operative intervention was done. He was referr ed to Dr. Cuello for further evaluation and treatment. Vital Signs: Vitals: 03/20/20 0941 BP: 109/70 Pulse: 83 Current Medications: Current Outpatient Medications: Acetaminophen ER 650 MG Oral Tablet Extended Release (Mapap Arthritis Pa in), Mapap Arthritis Pain 650 mg tablet,extended release TAKE ONE TABLET BY RADHA TH EVERY 8 HOURS, Disp: , Rfl: acyclovir (ZOVIRAX) 400 MG tablet, Take 400 mg by mouth Two Times Daily, Disp: , Rfl: 3 Adalimumab (HUMIRA PEN-CD/UC/HS STARTER) 40 MG/0.8ML PNKT, Inject 40 mg into the skin every 14 (fourteen) days, Disp: 2 each, Rfl: 3 Alendronate Sodium 70 MG Oral Tablet (Fosamax), Take 1 tablet by mouth e very 7 (seven) days, Disp: 4 tablet, Rfl: 11 azithromycin (ZITHROMAX) 500 MG tablet, Take 500 mg by mouth daily, Disp : , Rfl: 0 Baclofen 10 MG Oral Tablet (LIORESAL), TAKE ONE TABLET BY MOUTH TWICE DA COURTNEY NEEDED, Disp: , Rfl: cefuroxime (CEFTIN) 500 MG tablet, cefuroxime axetil 500 mg tabs, Disp: , Rfl: Cyclophosphamide 50 MG Oral Capsule (CYTOXAN), Take 50 mg by mouth daily , Disp: , Rfl: doxycycline (VIBRAMYCIN) 100 MG capsule, doxycycline hyclate 100 mg caps , Disp: , Rfl: ferrous sulfate 325 (65 FE) MG tablet, Take 1 tablet by mouth Two Times Daily, Disp: , Rfl: 0 gabapentin (NEURONTIN) 600 MG tablet, Use as directed 600 mg in the mout h or throat Three times daily , Disp: , Rfl: Iron-Vitamin C (IRON 100/C) 100-250 MG TABS, Use as directed 200 mg in t he mouth or throat, Disp: , Rfl: omeprazole (PRILOSEC) 20 MG capsule, Take 1 capsule by mouth Two Times D aily, Disp: 180 capsule, Rfl: 2 ondansetron (ZOFRAN) 8 MG tablet, Take 8 mg by mouth every 8 (eight) coty rs as needed for Nausea or Vomiting, Disp: , Rfl: Ondansetron 4 MG Oral Tablet Disintegrating (ZOFRAN-ODT), ondansetron 4 mg disintegrating tablet DISSOLVE ONE TABLET UNDER THE TONGUE EVERY SIX HOURS A S NEEDED, Disp: , Rfl: Oscal 500/200 D-3 500-200 MG-UNIT Oral Tablet (calcium-vitamin D), Take 1 tablet by mouth Two Times Daily, Disp: 60 tablet, Rfl: 11 predniSONE 10 MG Oral Tablet (DELTASONE), TAKE ONE TABLET BY MOUTH ONCE DAILY, Disp: 30 tablet, Rfl: 1 predniSONE 5 MG Oral Tablet (DELTASONE), TAKE ONE TABLET BY MOUTH TWICE DAILY, Disp: 30 tablet, Rfl: 1 prochlorperazine (COMPAZINE) 10 MG tablet, prochlorperazine maleate 10 m g tabs, Disp: , Rfl: Taltz 80 MG/ML Subcutaneous Solution Auto-injector (ixekizumab), INJECT 1 SYRINGE INTO THE SKIN EVERY 28 DAYS, Disp: 1 mL, Rfl: 3 traMADol HCl 50 MG Oral Tablet (ULTRAM), tramadol 50 mg tablet TAKE ONE TABLET TWICE DAILY NEEDED MAX DAILY DOSE TWO TABLETS, Disp: , Rfl: vitamin B-12 (CYANOCOBALAMIN) 500 MCG tablet, Use as directed 500 mg in the mouth or throat daily, Disp: , Rfl: 0 Vitamin D 50 MCG (2000 UT) Oral Tablet, Take 2,000 Units by mouth daily, Disp: , Rfl: Allergies and Reactions: Allergies as of 03/20/2020 (No Known Allergies) Past Medical History: Past Medical History: Diagnosis Date KIP (juvenile idiopathic arthritis) Psoriatic arthritis Rheumatoid arthritis S/P wrist surgery 08/08/2014 Past Surgical History: Past Surgical History: Procedure Laterality Date FOOT SURGERY second stage extensor tendon reconstruction with FCR tendon transfer and remov al of Nirav rods and insertion of toe extensor tendon grafts HAND SURGERY 07/24/15 Possible removal of hardware wrist with second stage extensor tendon reconstruc tion with FCR tendon transfer and removal of Nirav rods and insertion of toe ex tensor tendon grafts 07/24/15 TOTAL HIP ARTHROPLASTY 2006 WRIST FRACTURE SURGERY WRIST SURGERY Removal of hardware and ORIF of radius fracture with small fragment set 12/07/14 Past Social History: Social History Socioeconomic History Marital status: Single Spouse name: Not on file Number of children: Not on file Years of education: Not on file Highest education level: Not on file Occupational History Not on file Social Needs Financial resource strain: Not on file Food insecurity Worry: Not on file Inability: Not on file Transportation needs Medical: Not on file Non-medical: Not on file Tobacco Use Smoking status: Former Smoker Packs/day: 0.30 Years: 3.00 Pack years: 0.90 Types: Cigarettes Quit date: 11/30/1995 Years since quittin.3 Smokeless tobacco: Never Used Substance and Sexual Activity Alcohol use: No Drug use: Yes Types: Marijuana Sexual activity: Not on file Lifestyle Physical activity Days per week: Not on file Minutes per session: Not on file Stress: Not on file Relationships Social connections Talks on phone: Not on file Gets together: Not on file Attends amish service: Not on file Active member of club or organization: Not on file Attends meetings of clubs or organizations: Not on file Relationship status: Not on file Intimate partner violence Fear of current or ex partner: Not on file Emotionally abused: Not on file Physically abused: Not on file Forced sexual activity: Not on file Other Topics Concern Not on file Social History Narrative Not on file Family History: Family History Problem Relation Age of Onset Heart disease Mother Review of Systems: Pertinent positives as above in the HPI. All other systems ne gative. Physical Exam: Visit Vitals BP 109/70 Pulse 83 Ht 1.803 m (5' 11") Wt 87.5 kg (193 lb) BMI 26.92 kg/m General Appearance/ Psychiatric: Alert, cooperative, no distress. Mood/affec t appropriate Cardiovascular: Radial pulses demonstrate Regular rate and rhythm. 2+ dorsalis pedis pulses left Throat: Lips, mucosa, and tongue normal; teeth and gums normal Respiratory: respirations unlabored, no stridor or wheeze Right Foot/Ankle: Skin intact, large joint effusion noted at the ankle melissa int, severe pes planovalgus deformity noted, very tender to to palpation on the medial and lateral aspects of the foot and ankle. Palpable subluxation of the s ubtalar joint noted on exam. Hammertoe deformities of both the second and third toes. Range of motion extremely limited by both deformity and pain. Motor exam somewhat limited due to deformity and limited range of motion but appears to be motor intact. Sensory intact to the entire ankle foot and toes. Warm and well- perfused. Imaging: Weightbearing radiographs of the right foot and ankle as well as CT sca ns independently reviewed. Patient has a severe pes planovalgus deformity of hi s right foot. There is subtalar subluxation and extreme valgus deformity. Michell re arthritic changes noted in the subtalar, talonavicular joint, calcaneocuboid joint, and ankle joint. Patient also has hammertoe deformities in the second an d third toes. Patient also has a bunionette deformity in the small toe. Assessment: 1. Severe pes planovalgus deformity 2. Degenerative subluxation of the subtalar joint 3. Rheumatoid arthritis of the ankle, subtalar, talonavicular, calcaneocuboid melissa ints 4. Hammertoe deformities of the second and third toes 5. Bunionette deformity of the small toe Plan: We had a long conversation with the patient about his severe deformity to his left foot and ankle. We discussed with the patient that surgical interventi on would entail a pantalar fusion. We discussed with the patient risks and bene fits of the procedure which include wound complications, nonunion, infection, ri sk of anesthesia, risks with DVT and PEs etc. We also discussed with the patien t that due to the current Covid pandemic elective surgeries are not being perfor med at this time. We discussed with the patient that we would likely be able to do his surgery sooner if it was done as an outpatient. Discussed with the zach ent about possible postsurgical pain. Patient seen very confident that he would do just fine as he has had multiple surgeries for other arthritic disorders and reports not having trouble with pain. Patient would like to get the surgery do ne as soon as possible. We will start the process of planning the surgery and g etting it scheduled as an outpatient surgery. Patient will likely need clearanc e from his primary care due to his other medical comorbidities especially with h is rheumatoid arthritis and his current chronic corticosteroid medication. We d iscussed with the patient that some of the risks of the surgery are elevated due to his chronic corticosteroid medication. Patient understands and would like to proceed with surgery. Attending Addendum: I attest that I was present and active in conducting the his tory and physical examination and I am in agreement with the history, physical e xam, and the assessment and plan as documented above by the resident physician. Briefly Ronald is an unfortunate 39-year-old severe rheumatoid, who presents wi th a severe planovalgus left foot deformity. He has progressed essentially to a peritalar dislocation or at least severe subluxation, which can be seen on the weightbearing images. I explained, that this represents a very difficult proble m. He also is a relatively poor host given his autoimmune issues, as well as hi s chronic prednisone use. That being said he has exhausted all nonoperative dee sures included orthotics and boot usage. He was initially scheduled him for norman olivas, prior to Dr. Cui's departure from [place]. I think it is reasonable to proceed. Given the severity of his deformity and the pre-existing valgus ti lt to the talus, I think that he would be best served with a pantalar fusion. I explained to him, how much of a functional change that typically is, given the stiffness that results from fusing both the tibiotalar and talonavicular joints. However I do not see any other reasonable option at this point in time. I thi nk he has a good understanding or perspective of the type of outcome that he can expect. Given restrictions related to the current pandemic, this will need to wait un til the end of the surge. I reviewed the risks associated with the procedure which include but are not laboy ited to nonunion, infection, wound healing problems, nerve damage, blood loss, n eed for further surgery, need for amputation, RSD/CRPS, DVT/PE, cardiac event, s troke, and . The patient acknowledges these inherent risks and agrees to pr oceed with operative intervention at this time. We also discussed the potential downfalls of foot/ankle surgery, specifically noting that there were no guarante es and certainly surgery has the potential to make their symptoms worse or cause other related or unrelated symptoms. However overall I believe that the potenti al benefit in this case warrants the intervention. Orders Placed This Encounter Surgery Case Request, Outside Facility ONLY COVID-19 PCR CC: Provider Not In System No ref. provider found - Thank you This document was dictated using [employer] Speaking [employer] software. A reasonable attempt at proof reading has been made to minimize errors. Please ca ll our office if you have any questions. documented in this encounter Plan of Treatment Care Team Description Date Type Specialty Perez Dos Santos MD [address] [address] [place] [address] 05/23/2020 Office Visit Rheumatology 05/30/2020 Office Visit Dermatology Order Schedule Name Type Priority Associated Diag noses 1 Occurrences starting 03/20/2020 until 09/18/2020 COVID-19 PCR Microbiology Routine Rheumatoid arth ritis of left ankle, unspecified whether rheumatoid factor present Health Maintenance Due Date Last Done Comments MMR Vaccines (1 of 1 - 1979 Standard series) Varicella Vaccines (1 of 1979 2 - 2-dose childhood series) HIV Screening 1991 Pneumococcal Vaccine: 04/16/2015 04/16/2014 Pediatrics (0 to 5 Years) and At-Risk Patients (6 to 64 Years) (2 of 3 - PCV13) DTaP,Tdap,and Td Vaccines 08/09/2018 07/12/2018 (2 - Td) Influenza Vaccine 01/04/2020 04/16/2014 Pneumococcal Vaccine: 65+ 2043 04/16/2014 Years (1 of 1 - PPSV23) HIB Vaccines Aged Out No longer eligible based on patient's age to complete this topic Hepatitis A Vaccines Aged Out No longer eligibl e based on patient's age to complete this topic Hepatitis B Vaccines Aged Out No longer eligibl e based on patient's age to complete this topic IPV Vaccines Aged Out No longer eligible based on patient's age to complete this topic documented as of this encounter Procedures Comments Procedure Name Priority Date/Time Associated Diag nosis SURGERY CASE REQUEST Routine 03/20/2020 Rheumatoi d arthritis of OUTSIDE FACILITY ONLY 10:26 AM EST left ankle, uns pecified whether rheumatoid factor present documented in this encounter Results Not on filedocumented in this encounter Visit Diagnoses Diagnosis Rheumatoid arthritis of left ankle, uns pecified whether rheumatoid factor present - Primary documented in this encounter
--- OUTSIDE RECORDS SUMMARY | 2020-04-23 17:13 | CCD | Summary of Care ---
Author Author [facility] Address Unknown Phone Unavailable Care Team Providers Care Quality Control Industrial Engineer Name Role Phone Sonido Tabor MD PCP Reason for Visit * Reason Comments Follow-up Encounter Details Care Team Description Date Type Department Perez Dos Santos MD [address] [address] Psoriatic arthritis (Primary Dx); Large granular lymphocytic leukemia; High risk medication use; History of osteoporosis; Hip pain 03/07/2020 Telemedicine [facility] [address] [address] [place] [id number] Allergies No Known Allergiesdocumented as of this encounter (statuses as of 03/07/2020) Medications End Date Status Medication Sig Dispensed Refills Start Date Active azithromycin (ZITHROMAX) Take 500 mg 0 12/19 500 MG tablet by mouth 8 daily Active ibuprofen (ADVIL,MOTRIN) Take 200 mg 0 200 MG tablet by mouth every 6 (six) hours as needed for Pain Active Adalimumab (HUMIRA Inject 40 mg 2 each 3 PEN-CD/UC/HS STARTER) 40 into the skin 9 MG/0.8ML PNKT every 14 (fourteen) days Additional Information Patient not taking. Reported on 01/03/2020 2:58 PM Active cefuroxime (CEFTIN) 500 cefuroxime 0 MG [...] daily Active vitamin B-12 Use as 0 05/30/201 (CYANOCOBALAMIN) 500 MCG directed 500 9 tablet mg in the mouth or throat daily Active ferrous sulfate 325 (65 Take 1 tablet 0 FE) MG tablet by mouth Two 9 Times Daily Active acyclovir (ZOVIRAX) 400 Take 400 mg 3 MG tablet by mouth Two 9 Times Daily Active alendronate (FOSAMAX) 70 alendronate 0 MG tablet 70 mg tablet 1 tab weekly Active ibuprofen (ADVIL,MOTRIN) TAKE ONE 0 08/04 600 MG tablet TABLET BY 9 MOUTH THREE TIMES DAILY NEEDED Active prochlorperazine prochlorperaz 0 (COMPAZINE) 10 MG tablet ine maleate 10 mg tabs Active deferasirox (EXJADE) 500 0 MG disintegrating tablet 9 Active deferasirox (EXJADE) 250 0 MG disintegrating tablet 9 Active ondansetron (ZOFRAN) 8 MG Take 8 [...] by mouth 0 every 7 (seven) days Additional Information Patient not taking. Reported on 03/07/2020 12:34 PM 01/01/2021 Active Oscal 500/200 D-3 500-200 Take 1 tablet 60 tablet 11 MG-UNIT Oral Tablet by mouth Two 0 (calcium-vitamin D) Times Daily Active Taltz 80 MG/ML INJECT 1 1 mL 3 Subcutaneous Solution SYRINGE INTO 0 Auto-injector THE SKIN (ixekizumab) EVERY 28 DAYS Active predniSONE 5 MG Oral TAKE ONE 30 tablet 1 02/22 Tablet (DELTASONE) TABLET BY 0 MOUTH TWICE DAILY documented as of this encounter (statuses as of 03/07/2020) Active Problems Problem Noted Date History of [...] as of this encounter (statuses as of 03/07/2020) Resolved Problems Problem Noted Date Resolved Date Osteoporosis 01/03/2020 01/03/2020 documented as of this encounter (statuses as of 03/07/2020) Immunizations Name Administration Dates Next Due Influenza Split Trivalent 04/16/2014 preservative free PPD Placement 04/16/2014 Pneumococcal 04/16/2014 Polysaccharide PPV23 documented as of this encounter Social History Date Tobacco Use Types Packs/Day Years Used Quit: 11/30/1995 Former Smoker Cigarettes 0.3 3 Smokeless Tobacco: Never Used Drinks/Week oz/Week Comments Alcohol Use No Sex Assigned at Date Recorded Not on file documented as of this encounter Last Filed Vital Signs Reading Time Taken Comments Vital Sign - - Blood Pressure - - Pulse - - Temperature - - Respiratory Rate - - Oxygen Saturation - - Inhaled Oxygen Concentration - - Weight 180.3 cm (5' 10.98") 03/07/2020 12:33 PM EST Height - - Body Mass Index documented in this encounter Progress Notes * Alyssa Acosta MBBS - 03/07/2020 12:30 PM EST Rheumatology Clinic Note Patient name: Ronald Carrillo : 1980 PCP: Sonido Tabor MD Subjective This is a tele-medical visit. The patient was informed of the risks including se curity breach, technological failure, inability to perform a comprehensive physi noris exam which could delay or prevent an accurate diagnosis, and potential compl ications from treatment decisions rendered over a telemedical platform. The zach ent understands and consented to the use of tele-health services. The service was provided by means of an audio/video telecommunication. Time spent on this evaluation today: 40 Minutes History of Present Illness: Mr. Ronald Carrillo is a 39 y.o. male with a past medical history as mentioned below and most significant for Psoriatic arthritis , is seen today via telemedi cine for follow up. He was last seen in December 2019. He is currently on talt z 80 mg monthly, cyclophosphamide 50 mg daily. He also takes tramadol and baclof en as needed. He is also on oscal D and alendronate weekly. 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 He was diagnosed with psoriatic arthritis on top of that around 7 years ago. He has tried all the oral DMARDS, TNF inhibitors and they were stopped due to lack of efficacy. He was started on taltz and he is currently on taltz 80 mg every 28 days. DEXA scan done in 2017 showed osteopenia in the hip joint and osteoporosis of the femoral neck. He is on calcium and vitam in D. He was treated with bisphosphonates in the past. He was diagnosed with LGL leukemia . Bone marrow biopsy in August 2018 showed normo cellular marrow with 30% T-LGL on flowcytometry with t cell rearrangement by PCR . 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 He was started on methot rexate 21mg weekly and it was stopped in April due to inefficacy. He was also started on cyclophosphamide 50 mg weekly since 04/26/19. He is also taking jadane u ( iron chelating agent ) , prednisone 15 mg daily and eryhtropoeitin. His onco logist at [place]. He is transfusion dependent again. He complains of worsening Cushingoid appearance of his body: coombs facies and ronak ght gain which he tries to work off through exercise. He currently has persisten t joint pain, stiffness without significant swelling. He also had a trauma in hi s ankle and going to see orthopedic soon. He also has intermittent hip pain as w ell. For neck pain he takes tramadol and baclofen as needed. He is unable to tap er his prednisone below 15 mg daily. Past Medical History: Past Medical History: Diagnosis [...] Types: Cigarettes Quit date: 11/30/1995 Years since quittin.2 Smokeless tobacco: Never Used Substance and Sexual Activity Alcohol use: No Drug use: Yes Types: Marijuana Sexual activity: Not on file Lifestyle Physical activity Days per week: Not on file Minutes per session: Not on file Stress: Not on file Relationships Social connections Talks on phone: Not on file Gets together: Not on file Attends hinduism service: Not on file Active member of [...] Relation Age of Onset Heart disease Mother Medications: Current Outpatient Medications Medication Sig Dispense Refill alendronate (FOSAMAX) 70 MG tablet alendronate 70 mg tablet 1 tab weekly gabapentin (NEURONTIN) 600 MG tablet Use as directed 600 mg in the mouth or throat Three times daily ibuprofen (ADVIL,MOTRIN) 200 MG tablet Take 200 mg by mouth every 6 (six) hours as needed for Pain ibuprofen (ADVIL,MOTRIN) 600 MG tablet TAKE ONE TABLET BY MOUTH THREE TEX ES DAILY NEEDED 0 Iron-Vitamin C (IRON 100/C) 100-250 MG TABS Use as directed 200 mg in the mouth or throat omeprazole (PRILOSEC) 20 MG capsule Take 1 capsule by mouth Two Times Bailee ly 180 capsule 2 ondansetron (ZOFRAN) 8 MG tablet Take 8 mg by mouth every 8 (eight) hours as needed for Nausea or Vomiting predniSONE 5 MG Oral Tablet (DELTASONE) TAKE ONE TABLET BY MOUTH TWICE DA COURTNEY 30 tablet 1 Taltz 80 MG/ML Subcutaneous Solution Auto-injector (ixekizumab) INJECT 1 SYRINGE INTO THE SKIN EVERY 28 DAYS 1 mL 3 vitamin B-12 (CYANOCOBALAMIN) 500 MCG tablet Use as directed 500 mg in th e mouth or throat daily 0 acyclovir (ZOVIRAX) 400 MG tablet Take 400 mg by mouth Two Times Daily 3 Adalimumab (HUMIRA PEN-CD/UC/HS STARTER) 40 MG/0.8ML PNKT Inject 40 mg in to the skin every 14 (fourteen) days (Patient not taking: Reported on 01/03/2020) 2 each 3 Alendronate Sodium 70 MG Oral Tablet (Fosamax) Take 1 tablet by mouth freya ry 7 (seven) days (Patient not taking: Reported on 03/07/2020) 4 tablet 11 azithromycin (ZITHROMAX) 500 MG tablet Take 500 mg by mouth daily 0 cefuroxime (CEFTIN) 500 MG tablet cefuroxime axetil 500 mg tabs deferasirox (EXJADE) 250 MG disintegrating tablet deferasirox (EXJADE) 500 MG disintegrating tablet doxycycline (VIBRAMYCIN) 100 MG capsule doxycycline hyclate 100 mg caps ferrous sulfate 325 (65 FE) MG tablet Take 1 tablet by mouth Two Times Da courtney 0 Oscal 500/200 D-3 500-200 MG-UNIT Oral Tablet (calcium-vitamin D) Take 1 tablet by mouth Two Times Daily 60 tablet 11 prochlorperazine (COMPAZINE) 10 MG tablet prochlorperazine maleate 10 mg tabs No current facility-administered medications for this visit. Review of Systems: Review of Systems Constitutional: Negative for activity change, appetite change, chills, diaphores is, fatigue, fever and unexpected weight change. HENT: Negative. Eyes: Negative. Respiratory: Negative for apnea, cough, choking, chest tightness, shortness of b reath, wheezing and stridor. Cardiovascular: Negative for chest pain, palpitations and leg swelling. Gastrointestinal: Negative for abdominal distention, abdominal pain, anal bleedi ng, blood in stool, constipation, diarrhea, nausea, rectal pain and vomiting. Endocrine: Negative. Genitourinary: Negative. Musculoskeletal: Positive for arthralgias and back pain. Negative for gait probl em, joint swelling, myalgias, neck pain and neck stiffness. Neurological: Negative. Hematological: Negative. Psychiatric/Behavioral: Negative. Objective There were no vitals filed for this visit. Physical Exam PHYSICAL EXAM (visual only) The patient is not in acute distress. Constitutional: The patient is oriented to person, place, and time. The patient appears well-developed and well-nourished. No acute distress. HENT: The patient is not cushingoid. No facial redness. The patient is not in acute distress. No facial droop. Head: Normal looking, no alopecia. Right Ear: External ear normal. Left Ear: External ear normal. Nose: Nose normal. Mouth: no obvious swelling, can open normally. Eyes: The patient can close normally. Right eye exhibits no discharge. Left eye exhibits no discharge Neck: Normal range of motion. Neck supple. Cardiovascular: no cyanosis, not in distress while lying down. Pulmonary/Chest: Effort is not labored. Abdominal: The patient exhibits no distension. Musculoskeletal: The patient exhibits no swelling in upper and lower extremity j oints. Neurological: The patient is alert and oriented to person, place, and time. No facial droop. Exhibits normal muscle bulk. Coordination normal. Skin: No rash noted. No erythema. Psychiatric: The patient is anxious. Judgment and thought content normal. Imaging: I have independently reviewed all imaging studies Assessment & Plan Mr. Ronald Carrillo is a 39 y.o. male with a PMHx of Psoriatic arthritis , T cell LGL leukemia, osteoporosis and history of KIP coming in today for follow u p. He was last seen in December 2019. He is currently on taltz 80 mg monthly, cyclophosphamide 50 mg daily. He also takes tramadol and baclofen as needed. He is also on oscal D and alendronate weekly. He reports of neck pain, foot pain ( with recent trauma) , knee pain. He has sti ffness for the whole day and doesn't improve with activity. He doesn't believe t hat talz is helping. 1. Psoriatic arthritis On taltz 80 mg every month ( In the back ground of daily oral cytoxan for leukem ia ) - Recommended to hold taltz for 2 months as he is on concomitant cytoxan to avoi d serious immunosuppression. If he flares up after discontinuing taltz we might consider restarting it again on next visit. 2. 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 High risk medication use CBC, CMP done by oncologist on February 05 was reviewed. 4. History of osteoporosis - On oscal daily and alendronate 70 mg weekly 5. Hip pain In view of chronic steroids will consider xray to rule out any necrosis - XR Hips - Bilateral, 2 Views; Future Activities as tolerated. Fall precautions emphasized. Diet: low carb/low fat, more greens/vegetables, adequate hydration Exercise: Try to maintain a low impact exercise regimen as much as possible. [facility] for 30 minutes a day for at least 3 days a week. Encouraged to maintain good sleep hygiene Continue other medications as prescribed by PCP and other specialists. DVT precautions especially during long distance travel RTC: 2 months The patient was seen and examined with the attending, Dr Levon Acosta MD Rheumatology Fellow, PGY-5 [facility] * Perez Dos Santos MD - 03/07/2020 12:30 PM EST This is a tele-medical visit. The patient was informed of the risks including se curity breach, technological failure, inability to perform a comprehensive physi noris exam which could delay or prevent an accurate diagnosis, and potential compl ications from treatment decisions rendered over a telemedical platform. The zach ent understands and consented to the use of tele-health services. The service was provided by means of an audio/video telecommunication. LGL leukemia currently on Cytoxan from [facility], blood transfusions, weekly.iro nchelating agent. He is using Taltz for PsA. He is using 15 mg/day prednisone.Co ntinue Oscal-D+ alendronate. PE: chronic joint deformities.Baclofen helps with neck pain. Leave out Jazzy for 2 months and provide feedback about prednisone use. We have discussed the complexities of systemic autoimmune disease which underlie s his condition. We also discussed his prognosis and treatment options. Due to w axing vaning nature of his condition, the need for compliance with instructions and follow-up were emphasized. We addressed the need to use immunosuppressive tr eatments, their mechanism of action, and potential side effects. The patient's q uestions have been answered to his satisfaction. Get pelvic/hip Xray to r/u right hip AVN due to localized pain. F/U 2 months. documented in this encounter Plan of Treatment Care Team Description Date Type Specialty Mulugeta Cuello MD [address] [place] [address] 03/20/2020 Office Visit Orthopedic Surgery Perez Dos Santos MD [address] [place] [address] 05/23/2020 Office Visit Rheumatology 05/30/2020 Office Visit Dermatology Order Schedule Name Type Priority Associated Diag noses Expected: 03/07/2020, Expires: 2 XR Hips - Bilateral, 2 Imaging Routine Hip shiv n Views Health Maintenance Due Date Last Done Comments [...] this topic documented as of this encounter Results Not on filedocumented in this encounter Visit Diagnoses Diagnosis Psoriatic arthritis - Primary Psoriatic arthropathy Large granular lymphocytic leukemia Other lymphoid leukemia, without mentio n of having achieved remission High risk medication use Encounter for long-term (current) use o f other medications History of osteoporosis Personal history of other musculoskelet al disorders Hip pain Pain in joint, pelvic region and thigh documented in this encounter
--- OUTSIDE RECORDS SUMMARY | 2020-04-23 17:13 | CCD ---
Author Organization Unknown Address [address] [place] [id number] Phone [phone] Care Team Providers Care Route Driver Salesperson Name Role Phone ROJAS CIFUENTES 3 [phone] ERNIE CARMONA MD 3 [phone] Allergies Code Code System Name Reaction Severity Status Onset NKDA Medications Name Status Start Date Stop Date acyclovir 400 mg tablet TAKE ONE TABLET BY MOUTH TWICE DAILY Completed acyclovir 400 mg tabs Completed 07/20/2019 albuterol sulfate hfa 108 (90 base) mcg/act aers Completed 02/19/2020 albuterol sulfate HFA 90 mcg/actuation a erosol inhaler INHALE TWO PUFFS BY MOUTH FOUR TIMES DAILY NEEDED Completed 02/19/2020 alendronate 70 mg tablet TAKE ONE TABLET BY MOUTH EVERY SEVEN DAYS Completed 02/19/2020 amoxicillin 875 mg-potassium clavulanate 125 mg tablet Completed 07/20/2019 amoxicillin/clavulanate potassium 875-125 mg tabs Completed 07/20/2019 azithromycin 500 mg tablet Completed 05/30 baclofen 10 mg tabs Completed 02/19/2020 baclofen 10 mg tablet TAKE ONE TABLET BY MOUTH TWICE DAILY NEEDED Active Not available baclofen 10 mg tabs Completed 07/20/2019 cefdinir 300 mg capsule Completed 05/30/19 19 cefuroxime axetil 500 mg tablet TAKE ONE TABLET BY MOUTH EVERY TWELVE HOURS FOR 10 DAYS Completed 02/19/2020 cefuroxime axetil 500 mg tabs Completed celecoxib 200 mg caps Completed 0 celecoxib 200 mg capsule Completed 020 cephalexin 500 mg caps Completed 0 cephalexin 500 mg capsule Completed 2019 cyclophosphamide 50 mg caps Completed cyclophosphamide 50 mg capsule Completed 1 04/20/2019 deferasirox 360 mg tabs Completed deferasirox 250 mg tbso Completed 02/19/20 20 deferasirox 360 mg tablet Completed 2019 deferasirox 500 mg tbso Completed 02/19/20 doxycycline hyclate 100 mg caps Completed 07/20/2019 doxycycline hyclate 100 mg capsule Completed 07/20/2019 doxycycline monohydrate 100 mg caps Completed 07/20/2019 doxycycline monohydrate 100 mg capsule Completed 07/20/2019 Enbrel SureClick 50 mg/mL (1 mL) subcuta neous pen injector INJECT 1 PEN INTO THE SKIN EVERY 7 DAYS Completed 02/19/2020 enbrel sureclick 50 mg/ml soaj Completed 04/20/2019 ferrous fumarate 200 mg (65 mg iron)-vit C 25 mg tablet,extend release Take 1 tablet every day by oral route. Completed 02/19/2020 ferrous sulfate 325 mg (65 mg iron) tabl et TAKE ONE TABLET BY MOUTH TWICE DAILY Completed gabapentin 600 mg tabs Completed 02/19/20 gabapentin 300 mg caps Completed 9 gabapentin 300 mg capsule Completed 2019 gabapentin 600 mg tabs Completed 0 hydrocodone 5 mg-acetaminophen 325 mg tablet Completed 05/30/2018 ibuprofen 600 mg tablet Completed 02/19/20 ibuprofen 600 mg tabs Completed 12/20/2018 ibuprofen 800 mg tablet TAKE ONE TABLET BY MOUTH THREE TIMES DAILY Completed 02/19/2020 ibuprofen 800 mg tabs Completed 07/20/2019 jadenu 360 mg tabs Completed 02/19/2020 levocetirizine 5 mg tablet Completed 05/30 Mapap Arthritis Pain 650 mg tablet,exten ded release TAKE ONE TABLET BY MOUTH EVERY 8 HOURS Active Not available methotrexate (PF) 10 mg/0.2 mL subcutane ous auto-injector Inject 0.2 mL every week by subcutaneous route. Completed 02/19/2020 methotrexate sodium 2.5 mg tablet take five tabs once a week Active Not availabl e metoclopramide 10 mg tablet Completed 05/07 mupirocin 2 % oint Completed 07/20/2019 mupirocin 2 % topical ointment Active N ot available Neurontin 600 mg tablet Take 1 tablet 3 times a day by oral route. Active Not available omeprazole 20 mg cpdr Completed 0 omeprazole 20 mg capsule,delayed release Completed 02/19/2020 omeprazole 20 mg cpdr Completed 07/20/2019 ondansetron 4 mg disintegrating tablet DISSOLVE ONE TABLET UNDER THE TONGUE EVERY SIX HOURS NEEDED Completed 02/19/2020 ondansetron HCl 8 mg tablet TAKE ONE TABLET BY MOUTH EVERY SIX HOURS NEEDED Completed 02/19/2020 ondansetron hydrochloride 8 mg tabs Active Not available Oyster Shell Calcium-Vitamin D3 500 mg ( 1,250 mg)-200 unit tablet TAKE ONE TABLET BY MOUTH TWICE DAILY Completed potassium chloride ER 20 mEq tablet,exte nded release TAKE ONE TABLET BY MOUTH ONCE DAILY Completed potassium chloride er 20 meq tbcr Completed 02/19/2020 prednisone 10 mg tabs Completed 0 prednisone 5 mg tabs Completed 02/19/2020 prednisone 10 mg tablet Completed 02/19/20 20 prednisone 10 mg tabs Completed 02/19/2020 prednisone 20 mg tablet TAKE ONE TABLET BY MOUTH TWICE DAILY Completed prednisone 20 mg tabs Completed 02/19/2020 prednisone 5 mg tablet Active Not avail able prochlorperazine maleate 10 mg tablet TAKE ONE TABLET BY MOUTH EVERY EIGHT HOURS NEEDED FOR NAUSEA AND VOMITING Completed 02/19/2020 prochlorperazine maleate 10 mg tabs Completed 02/19/2020 sulfamethoxazole 800 mg-trimethoprim 160 mg tablet TAKE ONE TABLET BY MOUTH EVERY TWELVE HOURS Completed 02/19/2020 sulfamethoxazole/trimethoprim ds 800-160 mg tabs Completed 12/20/2018 taltz 80 mg/ml soaj Completed 02/19/2020 taltz 80 mg/ml soaj Completed 02/19/2020 Taltz Autoinjector 80 mg/mL subcutaneous once a month Active Not available tramadol 50 mg tablet TAKE ONE TABLET TWICE DAILY NEEDED MAX DAILY DOSE TWO TABLETS Active Not available tramadol hcl 50 mg tabs Completed 020 Problems None recorded. Procedures Date Name Performed by Arthroplasty of the Wrist An d/or Hand Notes: R Information not available Prosthetic Arthroplasty of t he Hip Notes: L hip Information not available Results Lab Results None recorded. Past Encounters 02/19/2020 Psoriatic Arthritis; Multiple Joint Pain; Long-term Drug Therapy Camila Saavedraaislinn Moe TIMBER INCISOR OPERATOR: [address], [place] [address], Ph. 12/27/2019 Psoriatic Arthritis; Multiple Joint Pain Camila Ximena Moe, TIMBER INCISOR OPERATOR: [address], [place] [address], Ph. 11/21/2019 Psoriatic Arthritis; Multiple Joint Pain Camila Ximena Moe, TIMBER INCISOR OPERATOR: [address], [place] [address], Ph. 10/24/2019 Psoriatic Arthritis; Multiple Joint Pain Camila Ximena Moe, TIMBER INCISOR OPERATOR: [address], [place] [address], Ph. 09/05/2019 Psoriatic Arthritis; Multiple Joint Pain Camila Ximena Moe, TIMBER INCISOR OPERATOR: [address], [place] [address], Ph. 07/20/2019 Psoriatic Arthritis; Multiple Joint Pain Camila Ximena Moe, TIMBER INCISOR OPERATOR: [address], [place] [address], Ph. 04/25/2019 Psoriatic Arthritis; Multiple Joint Pain Camila Ximena Moe, TIMBER INCISOR OPERATOR: [address], [place] [address], Ph. 03/20/2019 Psoriatic Arthritis; Multiple Joint Pain Camila Ximena Moe, TIMBER INCISOR OPERATOR: [address], [place] [address], Ph. 12/20/2018 Psoriatic Arthritis; Multiple Joint Pain Camila Ximena Moe, TIMBER INCISOR OPERATOR: [address], [place] [address], Ph. 06/27/2018 Psoriatic Arthritis; Multiple Joint Pain Camila Ximena Moe, TIMBER INCISOR OPERATOR: [address], [place] [address], Ph. 05/30/2018 Psoriatic Arthritis; Multiple Joint Pain Benito Gonsalves MD: [address], [place] [address], Ph. Social History Tobacco Smoking Status Former Smoker Notes: quit 19 ye ars ago Vaccine List None recorded. Plan of Care Reminders Provider Appointments None recorded. Lab None recorded. Referral None recorded. Procedures None recorded. Surgeries None recorded. Imaging None recorded. Vitals 02/19/2020 02:30PM FOLLOW-UP Height Blood Pressure 5 ft 11 in 119/71 mm[Hg] 10/24/2019 01:30PM Telehealth Height 5 ft 11 in 04/25/2019 02:15PM FOLLOW-UP Height Weight BMI Blood Pressure 5 ft 11 in 198 lbs 27.6 kg/m2 130/79 mm[Hg] 03/20/2019 01:45PM FOLLOW-UP Height Weight BMI Blood Pressure 5 ft 11 in 198 lbs 27.6 kg/m2 126/79 mm[Hg] 12/20/2018 02:15PM FOLLOW-UP Height Weight BMI Blood Pressure 5 ft 11 in 198 lbs 27.6 kg/m2 114/74 mm[Hg] 06/27/2018 01:30PM FOLLOW-UP Height Weight BMI Blood Pressure 5 ft 11 in 198 lbs 27.6 kg/m2 148/90 mm[Hg] 05/30/2018 04:00PM NEW PATIENT Height Weight BMI Blood Pressure 5 ft 11 in 202 lbs 28.2 kg/m2 148/82 mm[Hg]
--- OUTSIDE RECORDS SUMMARY | 2020-04-23 17:15 | CCD ---
Author Author [facility] Organization [facility] Address Unknown Phone Unavailable Support Name Relationship Address Phone Mulugeta Ritter MD Next Of Kin [address] [place] [address] Jennifer Castellanos Next Of Kin Unknown Unavailable Shea Dillon Next Of Kin [address] [place] [address] Gene Parkinson DO Next Of Kin [address] [place] [address] TWIN [place] [address] TATIANA CASTELLANOS Next Of Kin Unknown Nimo Higgins MD Next Of Kin [address] [place] [address] MARIAH GREGORY Next Of Kin [address] [place] [address] MARIA[place] [address] JOSE BURTON Next Of Kin Unknown Key Pendleton Next Of Kin [address] [place] [id number] Summer Almazan Next Of Kin [address] [place], [place] [id number] 315 [place]OY[place] [address] KARSTEN GUIDRY Next Of Kin Unknown Unavailable UE Next Of Kin Unknown Unavailable Yoli CASTELLANOS Next Of Kin [address] [place] [address] JOURDAN [place] [address] DISABLED Next Of Kin Unknown Unavailable JENNIFER CASTELLANOS Next Of Kin [address] [place] [address] Jennifer Castellanos ECON [place] [address] Unavailable [place] [address] Care Team Providers Care Software Development Project Manager Name Role Phone Shea Nowak COMPUTER FORENSICS TECHNICIAN COMPUTER FORENSICS TECHNICIAN Unavailable Unavailable VANVALBoyd FOURNIER MD Unavailable Unavailable VANVALKENBURGBoyd MD Unavailable Unavailable VANVALKENBURGBoyd MD Unavailable Unavailable VANVALKENBURGBoyd MD Unavailable Unavailable VANVALKENBURGBoyd MD Unavailable Unavailable VANVALKENBURGBoyd MD Unavailable Unavailable VANVALKENBURGBoyd MD Unavailable Unavailable VANVALKENBURGBoyd MD Unavailable Unavailable VANVALKENBURGBoyd MD Unavailable Unavailable VANVALKENBURGBoyd MD Unavailable Unavailable VANVALKENBURGBoyd MD Unavailable Unavailable VANVALKENBURGBoyd MD Unavailable Unavailable VANVALKENBURGBoyd MD Unavailable Unavailable VANVALKENBURGBoyd MD Unavailable Unavailable VANVALKENBURGBoyd MD Unavailable Unavailable VANVALKENBURGBoyd MD Unavailable Unavailable VANVALKENBURGBoyd MD Unavailable Unavailable VANVALKENBURGBoyd MD Unavailable Unavailable VANVALKENBURGBoyd MD Unavailable Unavailable VANVALKENBURGBoyd MD Unavailable Unavailable VANVALKENBURGBoyd MD Unavailable Unavailable VANVALKENBURGBoyd MD Unavailable Unavailable VANVALKENBURGBoyd MD Unavailable Unavailable VANVALKENBURGBoyd MD Unavailable Unavailable VANVALKENBURGBoyd MD Unavailable Unavailable VANVALKENBoyd ORTIZ MD Unavailable Unavailable VANVALKENBURGBoyd MD Unavailable Unavailable VANVALKENBoyd ORTIZ MD Unavailable Unavailable VANVALKENBURGBoyd MD Unavailable Unavailable VANVALKENBURGBoyd MD Unavailable Unavailable VANVALKENBoyd ORTIZ MD Unavailable Unavailable VANVALKENBoyd ORTIZ MD Unavailable Unavailable VANVALKENBoyd ORTIZ MD Unavailable Unavailable VANVALKENBURGBoyd MD Unavailable Unavailable VANVALKENBURGBoyd MD Unavailable Unavailable VANVALKENBURGBoyd MD Unavailable Unavailable VANVALKENBURGBoyd MD Unavailable Unavailable VANVALKENBURGBoyd MD Unavailable Unavailable VANVALKENBURGBoyd MD Unavailable Unavailable VANVALKENBURGBoyd MD Unavailable Unavailable VANVALKENBURGBoyd MD Unavailable Unavailable VANVALKENBURGBoyd MULUGETA MD Unavailable Unavailable VANVALKENBURG, Boyd KLEIN MD Unavailable Unavailable VANVALKENBURG, Boyd KLEIN MD Unavailable Unavailable VANVALKENBURG, Boyd KLEIN MD Unavailable Unavailable VANVALKENBURG, Boyd KLEIN MD Unavailable Unavailable VANVALKENBURG, Boyd KLEIN MD Unavailable Unavailable VANVALKENDIANA, Boyd KLEIN MD Unavailable Unavailable VANVALKENDIANA, Boyd KLEIN MD Unavailable Unavailable VANVALKENDIANA, Boyd KLEIN MD Unavailable Unavailable VANVALKENDIANA, Boyd KLEIN MD Unavailable Unavailable VANVALKENDIANA, Boyd KLEIN MD Unavailable Unavailable VANVALKENBURG, Boyd KLEIN MD Unavailable Unavailable VANVALKENBURG, Boyd KLEIN MD Unavailable Unavailable VANVALKENDIANA, Boyd KLEIN MD Unavailable Unavailable VANVALKENDIANA, Boyd KLEIN MD Unavailable Unavailable VANVALKENDIANA, Boyd KLEIN MD Unavailable Unavailable VANVALKENDIANA, Boyd KLEIN MD Unavailable Unavailable VANVALKENDIANA, Boyd KLEIN MD Unavailable Unavailable VANVALKENDIANA, Boyd KLEIN MD Unavailable Unavailable VANVALKENDIANA, Boyd KLEIN MD Unavailable Unavailable VANVALKENDIANA, Boyd KLEIN MD Unavailable Unavailable VANVALKENDIANA, Boyd KLEIN MD Unavailable Unavailable VANVALKENDIANA, Boyd KLEIN MD Unavailable Unavailable VANVALKENDIANA, Boyd KLEIN MD Unavailable Unavailable VANVALSHANTANU, Boyd KLEIN MD Unavailable Unavailable SHAYYVALBoyd FOURNIER MD Unavailable Unavailable Grimes, M Barratt PA Unavailable Unavailable Grimes, M Barratt PA Unavailable Unavailable Grimes, M Barratt PA Unavailable Unavailable Grimes, M Barratt PA Unavailable Unavailable Grimes, M Barratt PA Unavailable Unavailable Grimes, M Barratt PA Unavailable Unavailable Grimes, M Barratt PA Unavailable Unavailable Grimes, M Barratt PA Unavailable Unavailable Grimes, M Barratt PA Unavailable Unavailable Grimes, M Barratt PA Unavailable Unavailable Grimes, M Barratt PA Unavailable Unavailable Grimes, M Barratt PA Unavailable Unavailable Rgimes, M Barratt PA Unavailable Unavailable Grimes, M Barratt PA Unavailable Unavailable Grimes, M Barratt PA Unavailable Unavailable Grimes, M Barratt PA Unavailable Unavailable Grimes, M Barratt PA Unavailable Unavailable Grimes, M Barratt PA Unavailable Unavailable Grimes, M Barratt PA Unavailable Unavailable Grimes, M Barratt PA Unavailable Unavailable Grmies, M Barratt PA Unavailable Unavailable Grimes, M Barratt PA Unavailable Unavailable Grimes, M Barratt PA Unavailable Unavailable Grimes, M Barratt PA Unavailable Unavailable Grimes, M Barratt PA Unavailable Unavailable Grimes, M Barratt PA Unavailable Unavailable Grimes, M Barratt PA Unavailable Unavailable Veda Nowak Shea COMPUTER FORENSICS TECHNICIAN-BC Unavailable Unavailable Nowak, F Shea COMPUTER FORENSICS TECHNICIAN-BC Unavailable Unavailable Nowak, F Shea COMPUTER FORENSICS TECHNICIAN-BC Unavailable Unavailable Nowak, F Shea COMPUTER FORENSICS TECHNICIAN-BC Unavailable Unavailable Nowak, F Shea COMPUTER FORENSICS TECHNICIAN-BC Unavailable Unavailable Nowak, F Shea COMPUTER FORENSICS TECHNICIAN-BC Unavailable Unavailable Nowak, F Shea COMPUTER FORENSICS TECHNICIAN-BC Unavailable Unavailable Nowak, F Shea COMPUTER FORENSICS TECHNICIAN-BC Unavailable Unavailable Nowak, F Shea COMPUTER FORENSICS TECHNICIAN-BC Unavailable Unavailable Nowak, F Shea COMPUTER FORENSICS TECHNICIAN-BC Unavailable Unavailable Nowak, F Shea COMPUTER FORENSICS TECHNICIAN-BC Unavailable Unavailable Nowak, F Shea COMPUTER FORENSICS TECHNICIAN-BC Unavailable Unavailable Nowak, F Shea COMPUTER FORENSICS TECHNICIAN-BC Unavailable Unavailable Nowak, F Shea COMPUTER FORENSICS TECHNICIAN-BC Unavailable Unavailable Nowak, F Shea COMPUTER FORENSICS TECHNICIAN-BC Unavailable Unavailable Nowak, F Shea COMPUTER FORENSICS TECHNICIAN-BC Unavailable Unavailable Nowak, F Shea COMPUTER FORENSICS TECHNICIAN-BC Unavailable Unavailable Nowak, F Shea COMPUTER FORENSICS TECHNICIAN-BC Unavailable Unavailable Nowak, F Shea COMPUTER FORENSICS TECHNICIAN-BC Unavailable Unavailable Nowak, F Shea COMPUTER FORENSICS TECHNICIAN-BC Unavailable Unavailable Nowak, F Shea COMPUTER FORENSICS TECHNICIAN-BC Unavailable Unavailable Nowak, F Shea COMPUTER FORENSICS TECHNICIAN-BC Unavailable Unavailable Fish, [facility], PA-C Unavailable Unavailabl e Fish, [facility], PA-C Unavailable Unavailabl e Fish, [facility], PA-C Unavailable Unavailabl e Fish, [facility], PA-C Unavailable Unavailabl e Fish, [facility], PA-C Unavailable Unavailabl e Fish, [facility], PA-C Unavailable Unavailabl e Fish, [facility], PA-C Unavailable Unavailabl e Fish, [facility], PA-C Unavailable Unavailabl e Fish, [facility], PA-C Unavailable Unavailabl e Fish, [facility], PA-C Unavailable Unavailabl e Fish, [facility], PA-C Unavailable Unavailabl e Fish, [facility], PA-C Unavailable Unavailabl e Fish, [facility], PA-C Unavailable Unavailabl e Fish, [facility], PA-C Unavailable Unavailabl e Fish, [facility], PA-C Unavailable Unavailabl e Fish, [facility], PA-C Unavailable Unavailabl e Fish, [facility], PA-C Unavailable Unavailabl e Fish, [facility], PA-C Unavailable Unavailabl e Fish, [facility], PA-C Unavailable Unavailabl e Fish, [facility], PA-C Unavailable Unavailabl e Fish, [facility], PA-C Unavailable Unavailabl e Fish, [facility], PA-C Unavailable Unavailabl e Fish, [facility], PA-C Unavailable Unavailabl e Fish, [facility], PA-C Unavailable Unavailabl e Fish, [facility], PA-C Unavailable Unavailabl e Fish, [facility], PA-C Unavailable Unavailabl e Fish, [facility], PA-C Unavailable Unavailabl e Fish, [facility], PA-C Unavailable Unavailabl e Fish, [facility], PA-C Unavailable Unavailabl e Fish, [facility], PA-C Unavailable Unavailabl e Fish, [facility], PA-C Unavailable Unavailabl e Fish, [facility], PA-C Unavailable Unavailabl e Fish, [facility], PA-C Unavailable Unavailabl e Chin, Gene DO Unavailable Unavailable EVERDINGDenise MD Unavailable Unavailable EVERDINGDenise MD Unavailable Unavailable EVERDING, Denise ROCHA MD Unavailable Unavailable EVERDING, Denise ROCHA MD Unavailable Unavailable EVERDING, Denise ROCHA MD Unavailable Unavailable EVERDING, Denise ROCHA MD Unavailable Unavailable EVERDINGDenise MD Unavailable Unavailable EVERDINGDenise MD Unavailable Unavailable EVERDINGDenise MD Unavailable Unavailable EVERDINGDenise MD Unavailable Unavailable EVERDINGDenise MD Unavailable Unavailable EVERDINGDenise MD Unavailable Unavailable EVERDINGDenise MD Unavailable Unavailable EVERDINGDenise MD Unavailable Unavailable EVERDINGDenise MD Unavailable Unavailable EVERDINGDenise MD Unavailable Unavailable EVERDING, Denise ROCHA MD Unavailable Unavailable EVERDING, Denise ROCHA MD Unavailable Unavailable EVERDINGDenise MD Unavailable Unavailable EVERDINGDenise MD Unavailable Unavailable EVERDINGDenise MD Unavailable Unavailable EVERDINGDenise MD Unavailable Unavailable EVERDINGDenise MD Unavailable Unavailable EVERDINGDenise MD Unavailable Unavailable EVERDING, G JOSEFINA MD Unavailable Unavailable EVERDING, G JOSEFINA MD Unavailable Unavailable EVERDING, G JOSEFINA MD Unavailable Unavailable EVERDING, G JOSEFINA MD Unavailable Unavailable EVERDING, G JOSEFINA MD Unavailable Unavailable EVERDING, G JOSEFINA MD Unavailable Unavailable EVERDING, G JOSEFINA MD Unavailable Unavailable EVERDING, G JOSEFINA MD Unavailable Unavailable EVERDING, G JOSEFINA MD Unavailable Unavailable EVERDING, G JOSEFINA MD Unavailable Unavailable EVERDING, G JOSEFINA MD Unavailable Unavailable EVERDING, G JOSEFINA MD Unavailable Unavailable EVERDING, G JOSEFINA MD Unavailable Unavailable EVERDING, G JOSEFINA MD Unavailable Unavailable EVERDING, G JOSEFINA MD Unavailable Unavailable EVERDING, G JOSEFINA MD Unavailable Unavailable EVERDING, G JOSEFINA MD Unavailable Unavailable EVERDING, G JOSEFINA MD Unavailable Unavailable EVERDING, G JOSEFINA MD Unavailable Unavailable EVERDING, G JOSEFINA MD Unavailable Unavailable EVERDING, G JOSEFINA MD Unavailable Unavailable EVERDING, G JOSEFINA MD Unavailable Unavailable EVERDING, G JOSEFINA MD Unavailable Unavailable EVERDING, G JOSEFINA MD Unavailable Unavailable EVERDING, G JOSEFINA MD Unavailable Unavailable EVERDING, G JOSEFINA MD Unavailable Unavailable EVERDING, G JOSEFINA MD Unavailable Unavailable EVERDING, G JOSEFINA MD Unavailable Unavailable EVERDING, G JOSEFINA MD Unavailable Unavailable EVERDING, G JOSEFINA MD Unavailable Unavailable EVERDING, G JOSEFINA MD Unavailable Unavailable EVERDING, G JOSEFINA MD Unavailable Unavailable EVERDING, G JOSEFINA MD Unavailable Unavailable EVERDING, G JOSEFINA MD Unavailable Unavailable EVERDING, G JOSEFINA MD Unavailable Unavailable EVERDING, G JOSEFINA MD Unavailable Unavailable EVERDING, G JOSEFINA MD Unavailable Unavailable EVERDING, G JOSEFINA MD Unavailable Unavailable EVERDING, G JOSEFINA MD Unavailable Unavailable EVERDING, G JOSEFINA MD Unavailable Unavailable EVERDING, G JOSEFINA MD Unavailable Unavailable EVERDING, G JOSEFINA MD Unavailable Unavailable EVERDING, G JOSEFINA MD Unavailable Unavailable EVERDING, G JOSEFINA MD Unavailable Unavailable EVERDING, G JOSEFINA MD Unavailable Unavailable EVERDING, G JOSEFINA MD Unavailable Unavailable EVERDING, G JOSEFINA MD Unavailable Unavailable EVERDING, G JOSEFINA MD Unavailable Unavailable EVERDING, G JOSEFINA MD Unavailable Unavailable EVERDING, G JOSEFINA MD Unavailable Unavailable EVERDING, G JOSEFINA MD Unavailable Unavailable EVERDING, G JOSEFINA MD Unavailable Unavailable EVERDING, G JOSEFINA MD Unavailable Unavailable DAHLIA, ANDRAS Unavailable Unavailable Estefanía Ritter MD Unavailable Unavailable Estefanía Ritter MD Unavailable Unavailable Estefanía Ritter MD Unavailable Unavailable Estefanía Ritter MD Unavailable Unavailable Estefanía Ritter MD Unavailable Unavailable Estefanía Ritter MD Unavailable Unavailable Estefanía Ritter MD Unavailable Unavailable Estefanía Ritter MD Unavailable Unavailable Estefanía Ritter MD Unavailable Unavailable Estefanía Ritter MD Unavailable Unavailable Estefanía Ritter MD Unavailable Unavailable Estefanía Ritter MD Unavailable Unavailable Estefanía Ritter MD Unavailable Unavailable Estefanía Ritter MD Unavailable Unavailable Estefanía Ritter MD Unavailable Unavailable Estefanía Ritter MD Unavailable Unavailable Estefanía Ritter MD Unavailable Unavailable Estefanía Ritter MD Unavailable Unavailable Estefanía Ritter MD Unavailable Unavailable Estefanía Ritter MD Unavailable Unavailable Estefanía Ritter MD Unavailable Unavailable Estefanía Ritter MD Unavailable Unavailable Estefanía Ritter MD Unavailable Unavailable Estefanía Ritter MD Unavailable Unavailable Estefanía Ritter MD Unavailable Unavailable Estefanía Ritter MD Unavailable Unavailable Estefanía Ritter MD Unavailable Unavailable Estefanía Ritter MD Unavailable Unavailable Estefanía Ritter MD Unavailable Unavailable Estefanía Ritter MD Unavailable Unavailable Estefanía Ritter MD Unavailable Unavailable Estefanía Ritter MD Unavailable Unavailable Estefanía Ritter MD Unavailable Unavailable Estefanía Ritter MD Unavailable Unavailable Estefanía Ritter MD Unavailable Unavailable Estefanía Ritter MD Unavailable Unavailable Estefanía Ritter MD Unavailable Unavailable Estefanía Ritter MD Unavailable Unavailable Estefanía Ritter MD Unavailable Unavailable Estefanía Ritter MD Unavailable Unavailable Estefanía Ritter MD Unavailable Unavailable Estefanía Ritter MD Unavailable Unavailable Estefanía Ritter MD Unavailable Unavailable Estefanía Ritter MD Unavailable Unavailable Estefanía Ritter MD Unavailable Unavailable Estefanía Ritter MD Unavailable Unavailable Estefanía Ritter MD Unavailable Unavailable Estefanía Ritter MD Unavailable Unavailable Estefanía Ritter MD Unavailable Unavailable Estefanía Ritter MD Unavailable Unavailable Estefanía Ritter MD Unavailable Unavailable Estefanía Ritter MD Unavailable Unavailable Estefanía Ritter MD Unavailable Unavailable Estefanía Ritter MD Unavailable Unavailable Estefanía Ritter MD Unavailable Unavailable Estefanía Ritter MD Unavailable Unavailable Estefanía Ritter MD Unavailable Unavailable Estefanía Ritter MD Unavailable Unavailable Estefanía Ritter MD Unavailable Unavailable Estefanía Ritter MD Unavailable Unavailable Estefanía Ritter MD Unavailable Unavailable Estefanía Ritter MD Unavailable Unavailable Estefanía Ritter MD Unavailable Unavailable Estefanía Ritter MD Unavailable Unavailable Estefanía Ritter MD Unavailable Unavailable Estefanía Ritter MD Unavailable Unavailable Estefanía Ritter MD Unavailable Unavailable Estefanía Ritter MD Unavailable Unavailable Estefanía Ritter MD Unavailable Unavailable Estefanía Ritter MD Unavailable Unavailable Estefanía Ritter MD Unavailable Unavailable Estefanía Ritter MD Unavailable Unavailable Estefanía Ritter MD Unavailable Unavailable Estefanía Ritter MD Unavailable Unavailable Estefanía Ritter MD Unavailable Unavailable Estefanía Ritter MD Unavailable Unavailable Estefanía Ritter MD Unavailable Unavailable Estefanía Ritter MD Unavailable Unavailable Estefanía Ritter MD Unavailable Unavailable Estefanía Ritter MD Unavailable Unavailable Estefanía Ritter MD Unavailable Unavailable Estefanía Ritter MD Unavailable Unavailable Estefanía Ritter MD Unavailable Unavailable Estefanía Ritter MD Unavailable Unavailable Estefanía Ritter MD Unavailable Unavailable Estefanía Ritter MD Unavailable Unavailable Estefanía Ritter MD Unavailable Unavailable Estefanía Ritter MD Unavailable Unavailable Estefanía Ritter MD Unavailable Unavailable Jumalon, M Camila COMPUTER FORENSICS TECHNICIAN Unavailable Unavailable Jumalon, M Camila COMPUTER FORENSICS TECHNICIAN Unavailable Unavailable Jumalon, M Camila COMPUTER FORENSICS TECHNICIAN Unavailable Unavailable Jumalon, M Camila COMPUTER FORENSICS TECHNICIAN Unavailable Unavailable Jumalon, M Camila COMPUTER FORENSICS TECHNICIAN Unavailable Unavailable Jumalon, M Camila COMPUTER FORENSICS TECHNICIAN Unavailable Unavailable Jumalon, M Camila COMPUTER FORENSICS TECHNICIAN Unavailable Unavailable Jumalon, M Camila COMPUTER FORENSICS TECHNICIAN Unavailable Unavailable Jumalon, M Camila COMPUTER FORENSICS TECHNICIAN Unavailable Unavailable Jumalon, M Camila COMPUTER FORENSICS TECHNICIAN Unavailable Unavailable Jumalon, M Camila COMPUTER FORENSICS TECHNICIAN Unavailable Unavailable Jumalon, M Camila COMPUTER FORENSICS TECHNICIAN Unavailable Unavailable Jumalon, M Camila COMPUTER FORENSICS TECHNICIAN Unavailable Unavailable Jumalon, M Camila COMPUTER FORENSICS TECHNICIAN Unavailable Unavailable Jumalon, M Camila COMPUTER FORENSICS TECHNICIAN Unavailable Unavailable Jumalon, M Camila COMPUTER FORENSICS TECHNICIAN Unavailable Unavailable Jumalon, M Camila COMPUTER FORENSICS TECHNICIAN Unavailable Unavailable Jumalon, M Camila COMPUTER FORENSICS TECHNICIAN Unavailable Unavailable Jumalon, M Camila COMPUTER FORENSICS TECHNICIAN Unavailable Unavailable Jumalon, M Camila COMPUTER FORENSICS TECHNICIAN Unavailable Unavailable Jumalon, M Camila COMPUTER FORENSICS TECHNICIAN Unavailable Unavailable Jumalon, M Camila COMPUTER FORENSICS TECHNICIAN Unavailable Unavailable Jumalon, M Camila COMPUTER FORENSICS TECHNICIAN Unavailable Unavailable Jumalon, M Camila COMPUTER FORENSICS TECHNICIAN Unavailable Unavailable Jumalon, M Camila COMPUTER FORENSICS TECHNICIAN Unavailable Unavailable Jumalon, M Camila COMPUTER FORENSICS TECHNICIAN Unavailable Unavailable Jumalon, M Camila COMPUTER FORENSICS TECHNICIAN Unavailable Unavailable Jumalon, M Camila COMPUTER FORENSICS TECHNICIAN Unavailable Unavailable FishTomasa MPAS, PA-C Unavailable Unavailabl e Fish, Tomasa Gómez [facility]AS, PA-C Unavailable Unavailabl e Fish, Tomasa Gómez [facility]AS, PA-C Unavailable Unavailabl e Fish, Tomasa Gómez MPAS, PA-C Unavailable Unavailabl e Fish, [facility], PA-C Unavailable Unavailabl e Fish, [facility], PA-C Unavailable Unavailabl e Fish, [facility], PA-C Unavailable Unavailabl e Fish, [facility], PA-C Unavailable Unavailabl e Fish, [facility], PA-C Unavailable Unavailabl e Fish, [facility], PA-C Unavailable Unavailabl e Fish, [facility], PA-C Unavailable Unavailabl e Fish, [facility], PA-C Unavailable Unavailabl e Fish, [facility], PA-C Unavailable Unavailabl e Fish, [facility], PA-C Unavailable Unavailabl e Fish, [facility], PA-C Unavailable Unavailabl e Fish, [facility], PA-C Unavailable Unavailabl e Fish, [facility], PA-C Unavailable Unavailabl e Fish, [facility], PA-C Unavailable Unavailabl e Fish, [facility], PA-C Unavailable Unavailabl e Fish, [facility], PA-C Unavailable Unavailabl e Fish, [facility], PA-C Unavailable Unavailabl e Fish, [facility], PA-C Unavailable Unavailabl e Fish, [facility], PA-C Unavailable Unavailabl e Fish, [facility], PA-C Unavailable Unavailabl e Fish, [facility], PA-C Unavailable Unavailabl e Fish, [facility], PA-C Unavailable Unavailabl e Fish, [facility], PA-C Unavailable Unavailabl e Fish, [facility], PA-C Unavailable Unavailabl e Fish, [facility], PA-C Unavailable Unavailabl e Fish, [facility], PA-C Unavailable Unavailabl e Fish, [facility], PA-C Unavailable Unavailabl e Fish, [facility], PA-C Unavailable Unavailabl e Fish, [facility], PA-C Unavailable Unavailabl e Kaci Peralta Unavailable Kaci Peralta Unavailable Estefanía Ritter MD Unavailable Unavailable Estefanía Ritter MD Unavailable Unavailable Estefanía Ritter MD Unavailable Unavailable Estefanía Ritter MD Unavailable Unavailable Estefanía Ritter MD Unavailable Unavailable Estefanía Ritter MD Unavailable Unavailable Estefanía Ritter MD Unavailable Unavailable Estefanía Ritter MD Unavailable Unavailable Estefanía Ritter MD Unavailable Unavailable Estefanía Ritter MD Unavailable Unavailable Estefanía Ritter MD Unavailable Unavailable Estefanía Ritter MD Unavailable Unavailable Estefanía Ritter MD Unavailable Unavailable Estefanía Ritter MD Unavailable Unavailable Estefanía Ritter MD Unavailable Unavailable Estefanía Ritter MD Unavailable Unavailable Estefanía Ritter MD Unavailable Unavailable Estefanía Ritter MD Unavailable Unavailable Estefanía Ritter MD Unavailable Unavailable Estefanía Ritter MD Unavailable Unavailable Estefanía Ritter MD Unavailable Unavailable Estefanía Ritter MD Unavailable Unavailable Estefanía Ritter MD Unavailable Unavailable Estefanía Ritter MD Unavailable Unavailable Estefanía Ritter MD Unavailable Unavailable Estefanía Ritter MD Unavailable Unavailable Estefanía Ritter MD Unavailable Unavailable Esetfanía Ritter MD Unavailable Unavailable Estefanía Ritter MD Unavailable Unavailable Estefanía Ritter MD Unavailable Unavailable Estefanía Ritter MD Unavailable Unavailable Estefanía Ritter MD Unavailable Unavailable Estefanía Ritter MD Unavailable Unavailable Estefanía Ritter MD Unavailable Unavailable Estefanía Ritter MD Unavailable Unavailable Estefanía Ritter MD Unavailable Unavailable Estefanía Ritter MD Unavailable Unavailable Estefanía Ritter MD Unavailable Unavailable Estefanía Ritter MD Unavailable Unavailable Estefanía Ritter MD Unavailable Unavailable Estefanía Ritter MD Unavailable Unavailable Estefanía Ritter MD Unavailable Unavailable Estefanía Ritter MD Unavailable Unavailable Estefanía Ritter MD Unavailable Unavailable Estefanía Ritter MD Unavailable Unavailable Estefanía Ritter MD Unavailable Unavailable Estefanía Ritter MD Unavailable Unavailable Estefanía Ritter MD Unavailable Unavailable Estefanía Ritter MD Unavailable Unavailable Estefanía Ritter MD Unavailable Unavailable Estefanía Ritter MD Unavailable Unavailable Estefanía Ritter MD Unavailable Unavailable Estefanía Ritter MD Unavailable Unavailable Estefanía Ritter MD Unavailable Unavailable Estefanía Ritter MD Unavailable Unavailable Estefanía Ritter MD Unavailable Unavailable Estefanía Ritter MD Unavailable Unavailable Estefanía Ritter MD Unavailable Unavailable Estefanía Ritter MD Unavailable Unavailable Estefanía Ritter MD Unavailable Unavailable Estefanía Ritter MD Unavailable Unavailable Estefanía Ritter MD Unavailable Unavailable Estefanía Ritter MD Unavailable Unavailable Estefanía Ritter MD Unavailable Unavailable Estefanía Ritter MD Unavailable Unavailable Estefanía Ritter MD Unavailable Unavailable Estefanía Ritter MD Unavailable Unavailable Estefanía Ritter MD Unavailable Unavailable Estefanía Ritter MD Unavailable Unavailable Estefanía Ritter MD Unavailable Unavailable Estefanía Ritter MD Unavailable Unavailable Estefanía Ritter MD Unavailable Unavailable Estefanía Ritter MD Unavailable Unavailable Estefanía Ritter MD Unavailable Unavailable Estefanía Ritter MD Unavailable Unavailable Estefanía Ritter MD Unavailable Unavailable Estefanía Ritter MD Unavailable Unavailable Estefanía Ritter MD Unavailable Unavailable Estefanía Ritter MD Unavailable Unavailable Estefanía Ritter MD Unavailable Unavailable Estefanía Ritter MD Unavailable Unavailable Estefanía Ritter MD Unavailable Unavailable Estefanía Ritter MD Unavailable Unavailable Estefanía Ritter MD Unavailable Unavailable Estefanía Ritter MD Unavailable Unavailable Estefanía Ritter MD Unavailable Unavailable Estefanía Ritter MD Unavailable Unavailable Estefanía Ritter MD Unavailable Unavailable Estefanía Ritter MD Unavailable Unavailable MD DAHLIA ANDBÁRBARA Unavailable Unavailable Terra HIGGINS MD Unavailable Unavailable Terra HIGGINS MD Unavailable Unavailable Terra HIGGINS MD Unavailable Unavailable Terra HIGGINS MD Unavailable Unavailable Terra HIGGINS MD Unavailable Unavailable Terra HIGGINS MD Unavailable Unavailable Terra HIGGINS MD Unavailable Unavailable Terra HIGGINS MD Unavailable Unavailable Terra HIGGINS MD Unavailable Unavailable Terra HIGGINS MD Unavailable Unavailable Terra HIGGINS MD Unavailable Unavailable Terra HIGGINS MD Unavailable Unavailable Terra HIGGINS MD Unavailable Unavailable Terra HIGGINS MD Unavailable Unavailable Terra HIGGINS MD Unavailable Unavailable Terra HIGGINS MD Unavailable Unavailable Terra HIGGINS MD Unavailable Unavailable Terra HIGGINS MD Unavailable Unavailable Terra HIGGINS MD Unavailable Unavailable Terra HIGGINS MD Unavailable Unavailable Terra HIGGINS MD Unavailable Unavailable Terra HIGGINS MD Unavailable Unavailable Terra HIGGINS MD Unavailable Unavailable Terra HIGGINS MD Unavailable Unavailable Terra HIGGINS MD Unavailable Unavailable Terra HIGGINS MD Unavailable Unavailable Terra HIGGINS MD Unavailable Unavailable Terra HIGGINS MD Unavailable Unavailable Terra HIGGINS MD Unavailable Unavailable Terra HIGGINS MD Unavailable Unavailable Terra HIGGINS MD Unavailable Unavailable Terra HIGGINS MD Unavailable Unavailable Terra HIGGINS MD Unavailable Unavailable Terra HIGGINS MD Unavailable Unavailable Terra HIGGINS MD Unavailable Unavailable Terra HIGGINS MD Unavailable Unavailable Terra HIGGINS MD Unavailable Unavailable Terra HIGGINS MD Unavailable Unavailable Terra HIGGINS MD Unavailable Unavailable Terra HIGGINS MD Unavailable Unavailable Terra HIGGINS MD Unavailable Unavailable Terra HIGGINS MD Unavailable Unavailable Terra HIGGINS MD Unavailable Unavailable Terra HIGGINS MD Unavailable Unavailable Terra HIGGINS MD Unavailable Unavailable Terra HIGGINS MD Unavailable Unavailable Terra HIGGINS MD Unavailable Unavailable Terra HIGGINS MD Unavailable Unavailable Terra HIGGINS MD Unavailable Unavailable Terra HIGGINS MD Unavailable Unavailable Terra HIGGINS MD Unavailable Unavailable Terra HIGGINS MD Unavailable Unavailable Terra HIGGINS MD Unavailable Unavailable Terra HIGGINS MD Unavailable Unavailable Terra HIGGINS MD Unavailable Unavailable MARINATerra VILLEGAS MD Unavailable Unavailable Terra HIGGINS MD Unavailable Unavailable Terra HIGGINS MD Unavailable Unavailable Terra HIGGINS MD Unavailable Unavailable Terra HIGGINS MD Unavailable Unavailable Terra HIGGINS MD Unavailable Unavailable Terra HIGGINS MD Unavailable Unavailable Terra HIGGINS MD Unavailable Unavailable Terra HIGGINS MD Unavailable Unavailable Terra HIGGINS MD Unavailable Unavailable Terra HIGGINS MD Unavailable Unavailable Terra HIGGINS MD Unavailable Unavailable Terra HIGGINS MD Unavailable Unavailable Terra HIGGINS MD Unavailable Unavailable Terra HIGGINS MD Unavailable Unavailable Terra HIGGINS MD Unavailable Unavailable Terra HIGGINS MD Unavailable Unavailable Terra HIGGINS MD Unavailable Unavailable Terra HIGGINS MD Unavailable Unavailable Terra HIGGINS MD Unavailable Unavailable Terra HIGGINS MD Unavailable Unavailable Terra HIGGINS MD Unavailable Unavailable Terra HIGGINS MD Unavailable Unavailable Terra HIGGINS MD Unavailable Unavailable Terra HIGGINS MD Unavailable Unavailable Terra HIGGINS MD Unavailable Unavailable Terra HIGGINS MD Unavailable Unavailable Terra HIGGINS MD Unavailable Unavailable Freddy BHAKTA MD Unavailable Unavailable Freddy BHAKTA MD Unavailable Unavailable Freddy BHAKTA MD Unavailable Unavailable Freddy BHAKTA MD Unavailable Unavailable Freddy BHAKTA MD Unavailable Unavailable Freddy BHAKTA MD Unavailable Unavailable Freddy BHAKTA MD Unavailable Unavailable Freddy BHAKTA MD Unavailable Unavailable Freddy BHAKTA MD Unavailable Unavailable Freddy BHAKTA MD Unavailable Unavailable Freddy BHAKTA MD Unavailable Unavailable YONYFreddy MORGAN MD Unavailable Unavailable YONYFreddy MORGAN MD Unavailable Unavailable YONY, Freddy HILL MD Unavailable Unavailable YONY, Freddy HILL MD Unavailable Unavailable YONY, Freddy HILL MD Unavailable Unavailable YONY, Freddy HILL MD Unavailable Unavailable YONY, Freddy HILL MD Unavailable Unavailable YONY, Freddy HILL MD Unavailable Unavailable YONY, Freddy HILL MD Unavailable Unavailable YONY, Freddy HILL MD Unavailable Unavailable YONY, Freddy HILL MD Unavailable Unavailable YONY, Freddy HILL MD Unavailable Unavailable YONY, Freddy HILL MD Unavailable Unavailable YONY, Freddy HILL MD Unavailable Unavailable YONY, Freddy HILL MD Unavailable Unavailable YONY, Freddy HILL MD Unavailable Unavailable YONY, Freddy HILL MD Unavailable Unavailable YONY, Freddy HILL MD Unavailable Unavailable YONY, Freddy HILL MD Unavailable Unavailable YONY, Freddy HILL MD Unavailable Unavailable YONY, Freddy HILL MD Unavailable Unavailable YONY, Freddy HILL MD Unavailable Unavailable YONY, Freddy HILL MD Unavailable Unavailable YONY, rFeddy HILL MD Unavailable Unavailable YONY, Freddy HILL MD Unavailable Unavailable YONY, Freddy HILL MD Unavailable Unavailable YONY, Freddy HILL MD Unavailable Unavailable YONY, Freddy HILL MD Unavailable Unavailable YONY, Freddy HILL MD Unavailable Unavailable YONY, Freddy HILL MD Unavailable Unavailable YONY, Freddy HILL MD Unavailable Unavailable YONY, Freddy HILL MD Unavailable Unavailable YONY, Freddy HILL MD Unavailable Unavailable YONY, Freddy HILL MD Unavailable Unavailable YONY, Freddy HILL MD Unavailable Unavailable YONY, Freddy HILL MD Unavailable Unavailable YONY, Freddy HILL MD Unavailable Unavailable YONY, Freddy HILL MD Unavailable Unavailable YONY, Freddy HILL MD Unavailable Unavailable YONY, Freddy HILL MD Unavailable Unavailable YONY, Freddy HILL MD Unavailable Unavailable YONY, Freddy HILL MD Unavailable Unavailable YONY, Freddy HILL MD Unavailable Unavailable YONY, Freddy HILL MD Unavailable Unavailable YONY, Freddy HILL MD Unavailable Unavailable YONY, Freddy HILL MD Unavailable Unavailable YONY, Freddy HILL MD Unavailable Unavailable YONY, Freddy HILL MD Unavailable Unavailable YONY, Freddy HILL MD Unavailable Unavailable YONY, Freddy HILL MD Unavailable Unavailable YONY, Freddy HILL MD Unavailable Unavailable YONY, Freddy HILL MD Unavailable Unavailable YONY, B SERGIO VELOZ Unavailable Unavailable YONY, B SERGIO VELOZ Unavailable Unavailable YONY, B SERGIO VELOZ Unavailable Unavailable YONY, B SERGIO VELOZ Unavailable Unavailable YONY, B SERGIO VELOZ Unavailable Unavailable YONY, B SERGIO VELOZ Unavailable Unavailable YONY, B SERGIO VELOZ Unavailable Unavailable YONY, B SERGIO VELOZ Unavailable Unavailable YONY, B SERGIO VELOZ Unavailable Unavailable YONY, B SERGIO VELOZ Unavailable Unavailable YONY, B SERGIO VELOZ Unavailable Unavailable YONY, B SERGIO VELOZ Unavailable Unavailable YONY, B SERGIO VELOZ Unavailable Unavailable YONY, B SERGIO VELOZ Unavailable Unavailable YONY, B SERGIO VELOZ Unavailable Unavailable YONY, B SERGIO VELOZ Unavailable Unavailable YONY, B SERGIO VELOZ Unavailable Unavailable YONY, B SERGIO VELOZ Unavailable Unavailable YONY, B SERGIO VELOZ Unavailable Unavailable YONY, B SERGIO VELOZ Unavailable Unavailable Poiesz, J Nick Unavailable Unavailable Poiesz, J Nick Unavailable Unavailable Poiesz, J Nick Unavailable Unavailable Poiesz, J Nick Unavailable Unavailable Poiesz, J Nick Unavailable Unavailable Poiesz, J Nick Unavailable Unavailable Poiesz, J Nick Unavailable Unavailable Poiesz, J Nick Unavailable Unavailable Poiesz, J Nick Unavailable Unavailable Poiesz, J Nick Unavailable Unavailable Poiesz, J Nick Unavailable Unavailable Poiesz, J Nick Unavailable Unavailable Poiesz, J Nick Unavailable Unavailable Poiesz, J Nick Unavailable Unavailable Poiesz, J Nick Unavailable Unavailable Poiesz, J Nick Unavailable Unavailable Poiesz, J Nick Unavailable Unavailable Poiesz, J Nick Unavailable Unavailable Poiesz, J Nick Unavailable Unavailable Poiesz, J Nick Unavailable Unavailable Poiesz, J Nick Unavailable Unavailable Poiesz, J Nick Unavailable Unavailable Poiesz, J Nick Unavailable Unavailable Poiesz, J Nick Unavailable Unavailable Poiesz, J Nick Unavailable Unavailable Poiesz, J Nick Unavailable Unavailable Poiesz, J Nick Unavailable Unavailable Poiesz, J Nick Unavailable Unavailable Poiesz, J Nick Unavailable Unavailable Poiesz, J Nick Unavailable Unavailable Poiesz, J Nick Unavailable Unavailable Poiesz, J Nick Unavailable Unavailable Poiesz, J Nick Unavailable Unavailable Poiesz, J Nick Unavailable Unavailable Poiesz, J Nick Unavailable Unavailable Poiesz, J Nick Unavailable Unavailable Poiesz, J Nick Unavailable Unavailable Poiesz, J Nick Unavailable Unavailable Poiesz, J Nick Unavailable Unavailable Poiesz, J Nick Unavailable Unavailable Poiesz, J Nick Unavailable Unavailable Poiesz, J Nick Unavailable Unavailable Poiesz, J Nick Unavailable Unavailable Poiesz, J Inck Unavailable Unavailable Poiesz, J Nick Unavailable Unavailable Poiesz, J Nick Unavailable Unavailable Poiesz, J Nick Unavailable Unavailable ALBERTS, RAFAT MD Unavailable Unavailable ALBERTS, RAFAT MD Unavailable Unavailable ALBERTS, RAFAT MD Unavailable Unavailable ALBERTS, RAFAT MD Unavailable Unavailable ALBERTS, RAFAT MD Unavailable Unavailable ALBERTS, RAFAT MD Unavailable Unavailable ALBERTS, RAFAT MD Unavailable Unavailable ALBERTS, RAFAT MD Unavailable Unavailable ALBERTS, RAFAT MD Unavailable Unavailable ALBERTS, RAFAT MD Unavailable Unavailable ALBERTS, RAFAT MD Unavailable Unavailable ALBERTS, RAFAT MD Unavailable Unavailable ALBERTS, RAFAT MD Unavailable Unavailable ALBERTS, RAFAT MD Unavailable Unavailable ALBERTS, RAFAT MD Unavailable Unavailable ALBERTS, RAFAT MD Unavailable Unavailable ALBERTS, RAFAT MD Unavailable Unavailable ALBERTS, RAFAT MD Unavailable Unavailable ALBERTS, RAFAT MD Unavailable Unavailable ALBERTS, RAFAT MD Unavailable Unavailable ALBERTS, RAFAT MD Unavailable Unavailable ALBERTS, RAFAT MD Unavailable Unavailable ALBERTS, RAFAT MD Unavailable Unavailable ALBERTS, RAFAT MD Unavailable Unavailable ALBERTS, RAFAT MD Unavailable Unavailable ALBERTS, RAFAT MD Unavailable Unavailable ALBERTS, RAFAT MD Unavailable Unavailable ALBERTS, RAFAT MD Unavailable Unavailable ALBERTS, RAFAT MD Unavailable Unavailable ALBERTS, RAFAT MD Unavailable Unavailable Re-disclosure Warning The records that you are about to access may contain information from federally-assisted alcohol or drug abuse programs. If such information is present, then the following federally mandated warning applies: This information has been disclosed to you from records protected by federal confidentiality rules (42 CFR part 2). The federal rules prohibit you from making any further disclosure of this information unless further disclosure is expressly permitted by the written consent of the person to whom it pertains or as otherwise permitted by 42 CFR part 2. A general authorization for the release of medical or other information is NOT sufficient for this purpose. The Federal rules restrict any use of the information to criminally investigate or prosecute any alcohol or drug abuse patient.The records that you are about to access may contain highly sensitive health information, the redisclosure of which is protected by Article 27-F of the [facility] Public Health law. If you continue you may have access to information: Regarding HIV / AIDS; Provided by facilities licensed or operated by the [facility] Office of Mental Health; or Provided by the [facility] Office for People With Developmental Disabilities. If such information is present, then the following [facility] mandated warning applies: This information has been disclosed to you from confidential records which are protected by state law. State law prohibits you from making any further disclosure of this information without the specific written consent of the person to whom it pertains, or as otherwise permitted by law. Any unauthorized further disclosure in violation of state law may result in a fine or skilled nursing sentence or both. A general authorization for the release of medical or other information is NOT sufficient authorization for further disc losure. Allergies and Adverse Reactions Type Description Substance Reaction Status Data Source(s ) Drug Class NO KNOWN ALLERGIES NO KNOWN ALLERGIES [facility] Allergy to substance Allergy to substance Allergy to substance [facility] ([facility]) Family History Family Member Name Family Member Gender Family Member Status Date o f Status Description Data Source(s) Unknown Unknown Problem MEDENT ([facility]) Encounters Encounter Providers Location Date Indications Data Source(s ) Outpatient 05/30/2020 12:00:00 AM [facility] Outpatient Attender: HECTOR VILLAGOMEZ 05/23/2020 12:00:00 AM [facility] Outpatient Attender: MULUGETA CASON MD [id number] 03/20/2020 12:00:00 AM EST Rheumatoid arthritis, unspecified [facility] Rheumatoid arthritis, unspecified Outpatient Attender: HECTOR VILLAGOMEZ [id number] 03/07/2020 12:00:00 AM EST - 03/07/2020 02:33:21 PM EST Arthropathic psoriasis, unspecified [facility] Arthropathic psoriasis, unspecified Outpatient 03/07/2020 12:00:00 AM [facility] Camila Bueno Abhi, VEGETABLE TIER: [address], [place] [address], Ph. Attender: Camila Moe [facility] - [facility] - Main Office 02/19/2020 12:00:00 AM EST ATHE NA ([facility]) Kaci Kathryn, [facility]: [address] [place] [phone], Ph. Attender: Kaci Peralta [place] - [facility] Medical 01/29/2020 12:00:00 AM EDT CHITRA ([facility]) Outpatient Attender: Mulugeta Ritter MD 01/22/2020 02:57:00 PM EDT [facility] Outpatient Attender: Mulugeta Ritter MD 01/16/2020 11:45:00 AM EDT [facility] Outpatient Attender: Mulugeta Ritter MD 01/15/2020 08:51:03 AM EDT [facility] Outpatient Attender: Mulugeta Ritter MD 01/15/2020 08:51:01 AM EDT [facility] Outpatient Attender: Mulugeta Ritter MD 01/11/2020 11:19:01 AM EDT [facility] Outpatient Attender: Mulugeta Ritter MD 01/10/2020 01:34:00 PM EDT [facility] Outpatient Attender: Mulugeta Ritter MD 01/09/2020 01:57:00 PM EDT [facility] Outpatient Attender: Mulugeta Ritter MD 01/09/2020 12:51:01 PM EDT [facility] Outpatient Attender: Kaveh GUDINO Physical Therapy 11:15:00 AM EDT MEDENT ([facility]) Outpatient Attender: HECTOR VILLAGOMEZ [id number] 01/03/2020 12:00:00 AM EDT - 01/03/2020 04:13:52 PM EDT Arthropathic psoriasis, unspecified [facility] Arthropathic psoriasis, unspecified Outpatient Attender: Mulugeta Ritter MD 01/02/2020 12:49:00 PM EDT [facility] Outpatient Attender: Mulugeta Ritter MD 01/01/2020 02:55:00 PM EDT [facility] Outpatient Attender: Mulugeta Ritter MD FP 01/01/2020 12:14:03 PM EDT [facility] Outpatient Attender: Mulugeta Ritter MD 01/01/2020 12:14:01 PM EDT [facility] Outpatient Attender: RAFAT ALBERTS MD Physical Therapy 09:00:00 AM EDT MED[facility] ([facility]) Outpatient Attender: Mulugeta Ritter MD 12/29/2019 04:27:02 PM EDT [facility] Outpatient Attender: Mulugeta Ritter MD 12/29/2019 04:27:02 PM EDT [facility] Camila Moe, VEGETABLE TIER: [address], [place] [address], Ph. Attender: Camila Moe [facility] 12/27/2019 12:00:00 AM EDT ATHE NA ([facility]) Camila Moe, VEGETABLE TIER: [address], [facility] [place] [address], Ph. Attender: Camila Moe [facility] 12/27/2019 12:00:00 AM EDT ATHE NA ([facility]) Outpatient Attender: Mulugeta Ritter MD 12/26/2019 09:13:00 AM EDT [facility] Outpatient Attender: AL MELENDEZ 12/25/2019 10:38:01 AM EDT [facility] Outpatient Attender: Shea SANDOVAL 12/22/2019 09: 54:00 AM EDT [facility] Outpatient Attender: Shea SANDOVAL 12/18/2019 09: 01:05 AM EDT [facility] Outpatient Attender: AL MELENDEZ 12/18/2019 09:01:03 AM EDT [facility] Outpatient Attender: Shea SANDOVAL 12/12/2019 02: 24:01 PM EDT [facility] Outpatient Attender: RAFAT ALBERTS MD Physical Therapy 08:30:00 AM EDT MEDENT ([facility]) Outpatient Attender: Shea SANDOVAL 12/08/2019 03: 52:01 PM EDT [facility] Outpatient Attender: Shea MELENDEZ-BC 12/08/2019 03: 18:05 PM EDT [facility] 12/08/2019 01:41:00 PM EDT [facility] Outpatient Attender: AL MELENDEZ 11/30/2019 02:05:03 PM EDT [facility] Camila Moe, VEGETABLE TIER: [address], [place] [address], Ph. Attender: Camila Moe [facility] 11/21/2019 12:00:00 AM EDT ATHE NA ([facility]) Camila Moe, VEGETABLE TIER: [address], [facility] [place] [address], Ph. Attender: Camila Moe [facility] 11/21/2019 12:00:00 AM EDT ATHE NA ([facility]) Camila Saavedra [facility], VEGETABLE TIER: [address], [facility] [place] [address], Ph. Attender: Camila Moe [facility] 11/21/2019 12:00:00 AM EDT ATHE NA ([facility]) Outpatient Attender: HECTOR VILLAGOMEZ 11/16/2019 12:00:00 AM ED [facility] Outpatient 11/16/2019 12:00:00 AM EDT [facility] Outpatient Attender: JOSEFINA ANGLIN MDReferrer: Mulugeta flannery MD 11/12/2019 01:44:52 PM EDT [facility] Recurring Patient Referrer: Dalia BARTON PA-C 09/2019 03:01:22 PM EDT [facility] Outpatient Attender: Shea SANDOVAL 11/02/2019 04: 33:01 PM EDT [facility] Recurring Patient Referrer: Dalia BARTON PA-C 10/04 03:30:32 PM EDT [facility] Recurring Patient Referrer: Dalia BARTON PA-C 10/04 01:32:12 PM EDT [facility] Camila Moe, VEGETABLE TIER: [address], [place] [address], Ph. Attender: Camila Moe [facility] 10/24/2019 12:00:00 AM EDT ATHE NA ([facility]) Camila Moe, VEGETABLE TIER: [address], [place] [address], Ph. Attender: Camila Moe [facility] 10/24/2019 12:00:00 AM EDT ATHE NA ([facility]) Camila Moe, VEGETABLE TIER: [address], [place] [address], Ph. Attender: Camila Moe [facility] 10/24/2019 12:00:00 AM EDT ATHJami NA ([facility]) Camila Moe, VEGETABLE TIER: [address], [place] [address], Ph. Attender: Camila Halllorettakaitlin [facility] 10/24/2019 12:00:00 AM EDT ATHE NA ([facility]) [facility] 10/23/2019 01: 50:00 PM EDT [facility] Outpatient Attender: AL MELENDEZ 10/23/2019 10:44:01 AM EDT [facility] Outpatient Attender: RAFAT ALBERTS MD Physical Therapy 03:00:00 PM EDT MEDENT ([facility]) Outpatient Attender: AL MELENDEZ FP 10/04/2019 08:53:00 AM EDT [facility] Outpatient Attender: Dalia BARTON PA-C Physical Therapy 09/29/2019 02:00:00 PM EDT MED[facility] ([facility]) Outpatient Attender: AL MELENDEZ FP 09/29/2019 11:58:02 AM EDT [facility] Outpatient Attender: Shea SANDOVAL FP 09/29/2019 11: 58:01 AM EDT [facility] Outpatient Attender: Shea SANDOVAL FP 09/29/2019 09: 38:03 AM EDT [facility] Outpatient Attender: AL MELENDEZ FP 09/28/2019 03:48:00 PM EDT [facility] Outpatient Referrer: MD HECTOR VILLAGOMEZ 09/28/2019 05:10:00 AM EDT [facility] Outpatient Attender: AL MELENDEZ FP 09/27/2019 01:01:00 PM EDT [facility] Outpatient Attender: AL MELENDEZ FP 09/26/2019 04:20:01 PM EDT [facility] Outpatient Attender: AL BARROSO 09/26/2019 03:24:01 PM EDT [facility] Outpatient Attender: AL BARROSO 09/22/2019 03:08:02 PM EDT [facility] Outpatient Attender: Shea SANDOVAL FP 09/22/2019 03: 08:01 PM EDT [facility] Outpatient Attender: AL BARROSO 09/22/2019 02:02:00 PM EDT [facility] Outpatient Attender: AL BARROSO 09/18/2019 12:48:01 PM EDT [facility] Outpatient Attender: Shea BARROSO 09/17/2019 02: 44:00 PM EDT [facility] Outpatient Attender: Shea SANDOVAL FP 09/14/2019 08: 54:03 AM EDT [facility] Outpatient Attender: AL BARROSO 09/14/2019 08:54:02 AM EDT [facility] Outpatient Attender: AL MELENDEZ FP 09/12/2019 01:55:00 PM EDT [facility] Outpatient Attender: AL MELENDEZ 09/11/2019 09:50:01 AM EDT [facility] Outpatient Attender: Shea Nowak COMPUTER FORENSICS TECHNICIAN- FP 09/07/2019 05: 49:02 PM EDT [facility] Outpatient Attender: AL MELENDEZ 09/07/2019 05:06:00 PM EDT [facility] Camila Moe, VEGETABLE TIER: [address], [place] [address], Ph. Attender: Camila Moe [facility] - [facility] Office 09/05/2019 12:00:00 AM EDT CHITRA ([facility]) Camila Moe, VEGETABLE TIER: [address], [place] [address], Ph. Attender: Camila Moe [facility] - [facility] Office 09/05/2019 12:00:00 AM EDT CHITRA ([facility]) Camila Moe, VEGETABLE TIER: [address], [place] [address], Ph. Attender: Camila Moe [facility] - [facility] Office 09/05/2019 12:00:00 AM EDT CHITRA ([facility]) Camila Moe, VEGETABLE TIER: [address], [place] [address], Ph. Attender: Camila Moe [facility] - [facility] Office 09/05/2019 12:00:00 AM EDT CHITRA ([facility]) Camila Moe, VEGETABLE TIER: [address], [place] [address], Ph. Attender: Camila Moe [facility] - [facility] Office 09/05/2019 12:00:00 AM EDT [facility]ITRA ([facility]) Outpatient Attender: AL Nowak COMPUTER FORENSICS TECHNICIAN FP 08/31/2019 01:30:00 PM EDT [facility] Outpatient Attender: AL MELENDEZ 08/31/2019 01:28:04 PM EDT [facility] Outpatient Attender: Shea MELENDEZ- FP 08/31/2019 01: 28:02 PM EDT [facility] Outpatient Attender: AL MELENDEZ 08/23/2019 10:03:01 AM EDT [facility] Outpatient Attender: DO Parkinson FP 08/22/2019 07:51:00 AM EDT [facility] Outpatient Attender: NIMO HIGGINS MD 08/02/2019 09:21:00 A M EDT [facility] Camila Moe, VEGETABLE TIER: [address], [place] [address], Ph. Attender: Camila Moe [facility] - [facility] Office 07/20/2019 12:00:00 AM EDT CHITRA ([facility]) Camila Moe, VEGETABLE TIER: [address], [place] [address], Ph. Attender: Camila Moe [facility] - [facility] Office 07/20/2019 12:00:00 AM EDT [facility]RA ([facility]) Camila Moe, VEGETABLE TIER: [address], [place] [address], Ph. Attender: Camila Moe [facility] [place] - [facility] Office 07/20/2019 12:00:00 AM EDT CHITRA ([facility]) Camila Moe, VEGETABLE TIER: [address], [place] [address], Ph. Attender: Camila Moe COMPUTER FORENSICS TECHNICIAN [place] - [facility] [place] - Main Office 07/20/2019 12:00:00 AM EDT CHITRA ([facility]) Camila Moe, VEGETABLE TIER: [address], [place] [address], Ph. Attender: Camila Moe COMPUTER FORENSICS TECHNICIAN [place] - [facility] [place] - Main Office 07/20/2019 12:00:00 AM EDT CHITRA ([facility]) Camila Moe, VEGETABLE TIER: [address], [place] [address], Ph. Attender: Camila [facility] Main Office 07/20/2019 12:00:00 AM EDT CHITRA ([facility]) Outpatient Attender: HECTOR VILLAGOMEZ [id number] 06/29/2019 12:00:00 AM EDT Arthropathic psoriasis, unspecified [facility] Arthropathic psoriasis, unspecified Outpatient Attender: NIMO HIGGINS MD 05/22/2019 03:06:00 [facility] Outpatient Attender: NIMO HIGGINS MD 05/12/2019 06:20:02 [facility] Outpatient Attender: HECTOR VILLAGOMEZ 05/11/2019 12:00:00 AM [facility] Outpatient Attender: HECTOR VILLAGOMEZ 05/11/2019 12:00:00 AM [facility] Outpatient Referrer: MD HECTOR VILLAGOMEZ 05/10/2019 09:23:00 AM EST [facility] Outpatient Referrer: MD HECTOR VILLAGOMEZ 2019 07:58:00 PM EST [facility] [address], [facility] [address] 2019 12:00:00 AM EST eCW1 ([facility]) Outpatient Attender: NIMO HIGGINS MD 04/28/2019 09:28:55 [facility] Outpatient Referrer: MD HECTOR VILLAGOMEZ 04/27/2019 01:39:[address] [facility] Imaging Outpatient 04/27/2019 12:00:00 AM [facility] Outpatient Attender: NIMO HIGGINS MD 04/26/2019 02:48:02 [facility] Outpatient Attender: NIMO HIGGINS MD 04/26/2019 02:48:01 [facility] Outpatient Attender: NIMO HIGGINS MD 04/26/2019 02:48:00 [facility] Outpatient Attender: NIMO HIGGINS MD 04/26/2019 01:48:01 [facility] Camila Moe, VEGETABLE TIER: [address], [place] [address], Ph. Attender: Camila Moe [facility] 04/25/2019 12:00:00 AM EST ATHE NA ([facility]) Camila Halllorettakaitlin, VEGETABLE TIER: [address], [place] [address], Ph. Attender: Camila Moe [facility] 04/25/2019 12:00:00 AM EST ATHE NA ([facility]) Camila Ximena Moe, VEGETABLE TIER: [address], [place] [address], Ph. Attender: Camila Moe [facility] 04/25/2019 12:00:00 AM EST ATHE NA ([facility]) Camila Ximena Moe, VEGETABLE TIER: [address], [place] [address], Ph. Attender: Camila Moe [facility] 04/25/2019 12:00:00 AM EST ATHE NA ([facility]) Camila Moe, VEGETABLE TIER: [address], [place] [address], Ph. Attender: Camila Moe [facility] 04/25/2019 12:00:00 AM EST ATHE NA ([facility]) Camila Moe, VEGETABLE TIER: [address], [place] [address], Ph. Attender: Camila Moe [facility] 04/25/2019 12:00:00 AM EST ATHE NA ([facility]) Camila Moe, VEGETABLE TIER: [address], [place] [address], Ph. Attender: Camila Moe [facility] 04/25/2019 12:00:00 AM EST ATHE NA ([facility]) Outpatient Attender: Nick Thomas 04/19/2019 12:00:[address] [address] 04/17/2019 12:00:00 AM EST eCW1 ([facility]) Outpatient Attender: Nick Thomas 04/06/2019 12:00:00 AM [facility] Outpatient Attender: NIMO HIGGINS MD 03/24/2019 08:02:09 P M EST [facility] Camila Moe, VEGETABLE TIER: [address], [place] [address], Ph. Attender: Camila Moe [facility] 03/20/2019 12:00:00 AM EST ATHE NA ([facility]) Camila Moe, VEGETABLE TIER: [address], [place] [address], Ph. Attender: Camila Moe [facility] - [facility] 03/20/2019 12:00:00 AM EST ATHE NA ([facility]) Camila Moe, VEGETABLE TIER: [address], [place] [address], Ph. Attender: Camila Moe [facility] - [facility] 03/20/2019 12:00:00 AM EST ATHE NA ([facility]) Camila Moe, VEGETABLE TIER: [address], [place] [address], Ph. Attender: Camila Moe [facility] - [facility] 03/20/2019 12:00:00 AM EST ATHE NA ([facility]) Camila Moe, VEGETABLE TIER: [address], [place] [address], Ph. Attender: Camila Moe [facility] - [facility] 03/20/2019 12:00:00 AM EST ATHE NA ([facility]) Camila Moe, VEGETABLE TIER: [address], [place] [address], Ph. Attender: Camila Moe [facility] - [facility] 03/20/2019 12:00:00 AM EST ATHE NA ([facility]) Camila Moe, VEGETABLE TIER: [address], [place] [address], Ph. Attender: Camila Moe [facility] - [facility] 03/20/2019 12:00:00 AM EST ATHE NA ([facility]) Camilajami Moe, VEGETABLE TIER: [address], [address], [place] [address], Ph. Attender: Camila Moe [facility] - Main Office 03/20/2019 12:00:00 AM EST ATHE NA ([facility]) Outpatient Referrer: MD HECTOR VILLAGOMEZ 03/19/2019 05:14:00 PM EST [facility] Imaging Outpatient Attender: SERGIO BHAKTA MD 03/17/2019 12:00:00 AM EST [facility] Outpatient Attender: NIMO HIGGINS MD 03/15/2019 09:38:00 A M EST [facility] Outpatient Attender: Nick HaqA-ONCCACTR 019 12:00:00 AM EST - 02/09/2019 01:00:28 PM EST 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 [facility] 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 Outpatient Attender: HECTOR VILLAGOMEZ [id number] 01/12/2019 12:00:00 AM EDT - 01/12/2019 03:35:33 PM EDT Gastro-esophageal reflux disease without esophagitis [facility] Gastro-esophageal reflux disease without esophagitis Medications Medication Brand Name Start Date Product Form Dose Route Admi nistrative Instructions Pharmacy Instructions Status Indications Reaction Description Data Source(s) Prednisone 10 MG Oral Tablet predniSONE 10 MG Oral Tab let (DELTASONE) predniSONE 10 MG Oral Tablet (DELTASONE) 03/11/2020 12:00:00 AM EST active TAKE ONE TABLET BY MOUTH ONCE DAILY [facility] Cyclophosphamide 50 MG Oral Capsule Cycl ophosphamide 50 MG Oral Capsule (CYTOXAN) Cyclophosphamide 50 MG Oral Capsule (CYTOXAN) 02/23/20 20 12:00:00 AM EST 50 mg Oral active Take 50 mg by shabbir th daily [facility] Prednisone 5 MG Oral Tablet predniSONE 5 MG Oral Table t (DELTASONE) predniSONE 5 MG Oral Tablet (DELTASONE) 02/23/2020 12:00:00 AM EST active TAKE ONE TABLET BY MOUTH TWICE DAILY [facility] tramadol hydrochloride 50 MG Oral Tablet traMADol HCl 50 MG Oral Tablet (ULTRAM) traMADol HCl 50 MG Oral Tablet (ULTRAM) 02/19/2020 12:00:00 AM EST aborted TAKE ONE TABLET TWICE DAILY N EEDED MAX DAILY DOSE TWO TABLETS [facility] Baclofen 10 MG Oral Tablet Baclofen 10 MG Oral Tablet (LIORESAL) Baclofen 10 MG Oral Tablet (LIORESAL) 02/19/2020 12:00:00 AM EST active TAKE ONE TABLET BY MOUTH TWICE DAILY NEEDED [facility] Taltz 80 MG/ML Subcutaneous Solution Auto-injector ([employer]izum ab) [id number] 01/23/2020 12:00:00 AM EDT active INJECT 1 SYRINGE INTO THE SKIN EVERY 28 DAYS [facility] Alendronic acid 70 MG Oral Tablet Alendr maikel Sodium 70 MG Oral Tablet (Fosamax) Alendronate Sodium 70 MG Oral Tablet (Fosamax) 01/03/2020 12:00: 00 AM EDT 70 mg Oral active Take 1 tablet by mouth e very 7 (seven) days [facility] Calcium Carbonate 1250 MG / Cholecalcife rol 200 UNT Oral Tablet [Os-Richelle 500 with D] Oscal 500/200 D-3 500-200 MG-UNIT Oral Tablet (calcium-vitamin D) Oscal 500/200 D-3 500-200 MG-UNIT Oral Tablet (calcium-vitamin D) 01/03/2020 12:00:00 AM EDT 1 {tbl} Oral active Take 1 tablet by mouth Two Times Daily [facility] Ixekizumab 80 MG/ML Subcutaneous Solution Auto-injector 1923 30 06/29/2019 12:00:00 AM EDT 80 mg Subcutaneous active Inject 80 mg into the skin every 28 (twenty-eight) days [facility] deferasirox 2.5 MG/ML Oral Suspension de ferasirox (EXJADE) 250 MG disintegrating tablet deferasirox (EXJADE) 250 MG disintegrating tablet 12/05 12:00:00 AM EDT aborted [facility] deferasirox 5 MG/ML Oral Suspension defe rasirox (EXJADE) 500 MG disintegrating tablet deferasirox (EXJADE) 500 MG disintegrating tablet 12/05 12:00:00 AM EDT aborted [facility] Ibuprofen 600 MG Oral Tablet ibuprofen (ADVIL,MOTRIN) 600 MG tablet ibuprofen (ADVIL,MOTRIN) 600 MG tablet 08/04/2018 12:00:00 AM EDT aborted TAKE ONE TABLET BY MOUTH THREE TIMES DAILY NEEDED [facility] Alendronic acid 70 MG Oral Tablet alendronate (FOSAMAX ) 70 MG tablet alendronate (FOSAMAX) 70 MG tablet 04/11/2018 12:00:00 AM EST 70 mg Oral active Take 1 tablet by mouth every 7 (seven) days [facility] Calcium Carbonate 1250 MG / Cholecalcife rol 200 UNT Oral Tablet calcium-vitamin D (OSCAL-500) 500-200 MG-UNIT per tablet calcium-vitamin D (OSCAL-500) 500-200 MG-UNIT per tablet 04/11/2018 12:00:00 AM EST 1 {tbl} Oral active Take 1 tablet by mouth Two Times Daily [facility] Doxycycline Monohydrate 100 MG Oral Caps ule doxycycline monohydrate 100 mg capsule doxycycline monohydrate 100 mg capsule completed doxycycline monohydrate 100 MG Oral Capsule CHITRA ([facility]) Alendronic acid 70 MG Oral Tablet alendronate (FOSAMAX ) 70 MG tablet alendronate (FOSAMAX) 70 MG tablet aborted alendronate 70 mg tablet 1 tab weekly [facility] Ibuprofen 200 MG Oral Tablet ibuprofen (ADVIL,MOTRIN) 200 MG tablet ibuprofen (ADVIL,MOTRIN) 200 MG tablet 200 mg Oral aborted Take 200 mg by mouth every 6 (six) hours as needed for Pain [facility] amoxicillin/clavulanate potassium 875-125 mg tabs completed amoxicillin/clavulanate potassium 875-125 mg tabs [facility]RA ([facility]) amoxicillin/clavulanate potassium 875-125 mg tabs completed amoxicillin/clavulanate potassium 875-125 mg tabs CHITRA ([facility]) Calcium Carbonate 1250 MG / Cholecalcife rol 200 UNT Oral Tablet [place] Calcium-Vitamin D3 500 mg (1,250 mg)-200 unit tablet TAKE ONE TABLET BY MOUTH TWICE DAILY [place] Calcium-Vitamin D3 500 mg ( 1,250 mg)-200 unit tablet TAKE ONE TABLET BY MOUTH TWICE DAILY c ompleted calcium carbonate 1250 MG / cholecalciferol 200 UNT Oral Tablet CHITRA ([facility]) ibuprofen 800 mg tabs completed ibuprofen 800 mg tabs [facility]RA ([facility]) Ibuprofen 600 MG Oral Tablet ibuprofen 600 mg tablet ibuprofen 6 00 mg tablet completed ibuprofen 600 MG Oral Tablet [facility]RA ([facility]) Cephalexin 500 MG Oral Capsule cephalexin 500 mg capsu le cephalexin 500 mg capsule completed Cephalexin 500 MG Oral Capsule CHITRA ([facility]) prednisone 10 mg tabs completed prednisone 10 mg tabs CHITRA ([facility]) Amoxicillin 875 MG / Clavulanate 125 MG Oral Tablet amoxicillin 875 mg-potassium clavulanate 125 mg tablet amoxicillin 875 mg-potassium clavulanate 125 mg tablet completed amoxicillin 875 MG / clavulanate 125 MG Oral Tablet CH[facility]RA ([facility]) omeprazole 20 mg cpdr completed omeprazole 20 mg cpdr [facility]RA ([facility]) ibuprofen 800 mg tabs completed ibuprofen 800 mg tabs [facility]RA ([facility]) baclofen 10 mg tabs completed baclofen 10 mg tabs [facility]RA ([facility]) cefuroxime axetil 500 mg tabs co mpleted cefuroxime axetil 500 mg tabs [facility]RA ([facility]) Doxycycline Monohydrate 100 MG Oral Caps ule doxycycline monohydrate 100 mg capsule doxycycline monohydrate 100 mg capsule completed doxycycline monohydrate 100 MG Oral Capsule CHITRA ([facility]) Doxycycline Monohydrate 100 MG Oral Caps ule doxycycline monohydrate 100 mg capsule doxycycline monohydrate 100 mg capsule completed doxycycline monohydrate 100 MG Oral Capsule CHITRA ([facility]) Amoxicillin 875 MG / Clavulanate 125 MG Oral Tablet amoxicillin 875 mg-potassium clavulanate 125 mg tablet amoxicillin 875 mg-potassium clavulanate 125 mg tablet completed amoxicillin 875 MG / clavulanate 125 MG Oral Tablet CHITRA ([facility]) prednisone 10 mg tabs completed prednisone 10 mg tabs [facility]RA ([facility]) omeprazole 20 mg cpdr completed omeprazole 20 mg cpdr [facility]RA ([facility]) cephalexin 500 mg caps completed cephalexin 500 mg caps [facility] ([facility]) acyclovir 400 mg tabs completed acyclovir 400 mg tabs [facility]RA ([facility]) Doxycycline Monohydrate 100 MG Oral Caps ule doxycycline monohydrate 100 mg capsule doxycycline monohydrate 100 mg capsule completed Doxycycline Monohydrate 100 MG Oral Capsule CHITRA ([facility]) Cephalexin 500 MG Oral Capsule cephalexin 500 mg capsu le cephalexin 500 mg capsule completed cephalexin 500 MG Oral Capsule CHITRA ([facility]) Cephalexin 500 MG Oral Capsule cephalexin 500 mg capsu le cephalexin 500 mg capsule completed cephalexin 500 MG Oral Capsule CHIRTA ([facility]) gabapentin 600 mg tabs completed gabapentin 600 mg tabs CHITRA ([facility]) doxycycline monohydrate 100 mg caps completed doxycycline monohydrate 100 mg caps [facility]RA ([facility]) doxycycline monohydrate 100 mg caps completed doxycycline monohydrate 100 mg caps CH[facility]RA ([facility]) albuterol sulfate hfa 108 (90 base) mcg/act aers completed albuterol sulfate hfa 108 (90 base) mcg/act aers CH[facility]RA ([facility]) cephalexin 500 mg caps completed cephalexin 500 mg caps [facility]RA ([facility]) omeprazole 20 mg cpdr completed omeprazole 20 mg cpdr [facility]RA ([facility]) gabapentin 300 MG Oral Capsule gabapentin 300 mg capsu le gabapentin 300 mg capsule completed gabapentin 300 MG Oral Capsule CH[facility]RA ([facility]) baclofen 10 mg tabs completed baclofen 10 mg tabs [facility]RA ([facility]) omeprazole 20 mg cpdr completed omeprazole 20 mg cpdr [facility]RA ([facility]) doxycycline hyclate 100 MG Oral Capsule doxycycline hy clate 100 mg capsule doxycycline hyclate 100 mg capsule com pleted doxycycline hyclate 100 MG Oral Capsule CH[facility]RA ([facility]) cephalexin 500 mg caps completed cephalexin 500 mg caps [facility]RA ([facility]) mupirocin 2 % oint completed m upirocin 2 % oint CH[facility]RA ([facility]) Taltz Autoinjector 80 mg/mL subcutaneous [id number] completed 1 ML ixekizumab 80 MG/ML Auto-Injector [Taltz] CHITRA ([facility]) doxycycline hyclate 100 MG Oral Capsule doxycycline hy clate 100 mg capsule doxycycline hyclate 100 mg capsule com pleted doxycycline hyclate 100 MG Oral Capsule CHITRA ([facility]) Doxycycline Monohydrate 100 MG Oral Caps ule doxycycline monohydrate 100 mg capsule doxycycline monohydrate 100 mg capsule completed doxycycline monohydrate 100 MG Oral Capsule CHITRA ([facility]) doxycycline hyclate 100 MG Oral Capsule doxycycline hy clate 100 mg capsule doxycycline hyclate 100 mg capsule com pleted doxycycline hyclate 100 MG Oral Capsule CHITRA ([facility]) doxycycline hyclate 100 mg caps completed doxycycline hyclate 100 mg caps [facility]RA ([facility]) baclofen 10 mg tabs completed baclofen 10 mg tabs [facility]RA ([facility]) doxycycline hyclate 100 mg caps completed doxycycline hyclate 100 mg caps [facility]RA ([facility]) gabapentin 600 mg tabs completed gabapentin 600 mg tabs CHITRA ([facility]) cefuroxime axetil 500 mg tabs co mpleted cefuroxime axetil 500 mg tabs [facility]RA ([facility]) doxycycline monohydrate 100 mg caps completed doxycycline monohydrate 100 mg caps CHITRA ([facility]) ferrous fumarate 200 mg (65 mg iron)-vit C 25 mg tablet,extend release Take 1 tablet every day by oral route. [id number] 1 compl eted ferrous fumarate 200 mg (65 mg iron)-vit C 25 mg tablet,extend release CHITRA ([facility]) amoxicillin/clavulanate potassium 875-125 mg tabs completed amoxicillin/clavulanate potassium 875-125 mg tabs CH[facility]RA ([facility]) acyclovir 400 mg tabs completed acyclovir 400 mg tabs [facility] ([facility]) omeprazole 20 mg cpdr completed omeprazole 20 mg cpdr [facility] ([facility]) Amoxicillin 875 MG / Clavulanate 125 MG Oral Tablet amoxicillin 875 mg-potassium clavulanate 125 mg tablet amoxicillin 875 mg-potassium clavulanate 125 mg tablet completed amoxici llin 875 MG / clavulanate 125 MG Oral Tablet CHITRA ([facility]) acyclovir 400 mg tabs completed acyclovir 400 mg tabs [facility]RA ([facility]) 0.98 ML Etanercept 50 MG/ML Auto-Injecto r [Enbrel] Enbrel SureClick 50 mg/mL (1 mL) subcutaneous pen injector INJECT 1 PEN INTO THE SKIN EVERY 7 DAYS Enbrel SureClick 50 mg/mL (1 mL) subcutaneous pen injector INJECT 1 PEN INTO THE SKIN EVERY 7 DAYS completed 1 ML etanercept 50 MG/ML Auto-Injector [Enbrel] CHITRA ([facility]) deferasirox 250 mg tbso completed deferasirox 250 mg tbso [facility]RA ([facility]) baclofen 10 mg tabs completed baclofen 10 mg tabs [facility]ITRA ([facility]) cefuroxime axetil 500 mg tabs co mpleted cefuroxime axetil 500 mg tabs CHITRA ([facility]) tramadol hcl 50 mg tabs completed tramadol hcl 50 mg tabs [facility]RA ([facility]) mupirocin 2 % oint completed m upirocin 2 % oint CHITRA ([facility]) deferasirox 500 mg tbso completed deferasirox 500 mg tbso [facility]RA ([facility]) gabapentin 600 mg tabs completed gabapentin 600 mg tabs [facility]RA ([facility]) doxycycline hyclate 100 MG Oral Capsule doxycycline hy clate 100 mg capsule doxycycline hyclate 100 mg capsule com pleted doxycycline hyclate 100 MG Oral Capsule [facility] ([facility] [facility]) doxycycline hyclate 100 mg caps completed doxycycline hyclate 100 mg caps [facility] ([facility]) gabapentin 300 MG Oral Capsule gabapentin 300 mg capsu le gabapentin 300 mg capsule completed gabapentin 300 MG Oral Capsule [facility] ([facility]) Cefuroxime 500 MG Oral Tablet cefuroxime axetil 500 mg tablet TAKE ONE TABLET BY MOUTH EVERY TWELVE HOURS FOR 10 DAYS cefuroxime axetil 500 mg tablet TAKE ONE TABLET BY MOUTH EVERY TWELVE HOURS FOR 10 DAYS completed cefuroxime 500 MG Oral Tablet [facility] ([facility]) doxycycline hyclate 100 mg caps completed doxycycline hyclate 100 mg caps [facility] ([facility]) cefuroxime axetil 500 mg tabs co mpleted cefuroxime axetil 500 mg tabs [facility] ([facility]) gabapentin 600 mg tabs completed gabapentin 600 mg tabs [facility] ([facility]) doxycycline hyclate 100 mg caps completed doxycycline hyclate 100 mg caps [facility] ([facility]) acyclovir 400 mg tabs completed acyclovir 400 mg tabs [facility] ([facility]) doxycycline hyclate 100 MG Oral Capsule doxycycline hy clate 100 mg capsule doxycycline hyclate 100 mg capsule com pleted doxycycline hyclate 100 MG Oral Capsule [facility] ([facility]) enbrel sureclick 50 mg/ml soaj c ompleted enbrel sureclick 50 mg/ml soaj [facility] ([facility]) cefuroxime axetil 500 mg tabs co mpleted cefuroxime axetil 500 mg tabs [facility] ([facility]) Sulfamethoxazole 800 MG / Trimethoprim 1 60 MG Oral Tablet sulfamethoxazole 800 mg-trimethoprim 160 mg tablet TAKE ONE TABLET BY MOUTH EVERY TWELVE HOURS sulfamethoxazole 800 mg-trimethoprim 160 mg tablet TAKE ONE TABLET BY MOUTH EVERY TWELVE HOURS completed sulfamethoxazole 800 MG / trimethoprim 160 MG Oral Tablet [facility] ([facility]) 0.2 ML Methotrexate 50 MG/ML Auto-Inject or methotrexate (PF) 10 mg/0.2 mL subcutaneous auto-injector Inject 0.2 mL every week by subcutaneous route. methotrexate (PF) 10 mg/0.2 mL subcutaneous auto-injector Inject 0.2 mL every week by subcutaneous route. 0.2 mL completed 0.2 ML methotrexate 50 MG/ML Auto-Injector [facility] ([facility]) gabapentin 300 MG Oral Capsule gabapentin 300 mg capsu le gabapentin 300 mg capsule completed gabapentin 300 MG Oral Capsule [facility] ([facility]) amoxicillin/clavulanate potassium 875-125 mg tabs completed amoxicillin/clavulanate potassium 875-125 mg tabs [facility] ([facility]) Ondansetron 8 MG Oral Tablet ondansetron HCl 8 mg tablet TAKE ONE TABLET BY MOUTH EVERY SIX HOURS NEEDED ondansetron HCl 8 mg tablet TAKE ONE TAB LET BY MOUTH EVERY SIX HOURS NEEDED comple dee ondansetron 8 MG Oral Tablet [facility] ([facility]) omeprazole 20 mg cpdr completed omeprazole 20 mg cpdr [facility] ([facility]) cefuroxime axetil 500 mg tabs co mpleted cefuroxime axetil 500 mg tabs [facility] ([facility]) cephalexin 500 mg caps completed cephalexin 500 mg caps [facility] ([facility]) taltz 80 mg/ml soaj completed taltz 80 mg/ml soaj [facility] ([facility]) Amoxicillin 875 MG / Clavulanate 125 MG Oral Tablet amoxicillin 875 mg-potassium clavulanate 125 mg tablet amoxicillin 875 mg-potassium clavulanate 125 mg tablet completed amoxici llin 875 MG / clavulanate 125 MG Oral Tablet [facility] ([facility]) doxycycline monohydrate 100 mg caps completed doxycycline monohydrate 100 mg caps [facility] ([facility]) gabapentin 600 mg tabs completed gabapentin 600 mg tabs [facility] ([facility]) Prednisone 10 MG Oral Tablet prednisone 10 mg tablet prednisone 10 mg tablet completed prednisone 10 MG Oral Tablet [facility] ([facility]) Prochlorperazine 10 MG Oral Tablet proch lorperazine maleate 10 mg tablet TAKE ONE TABLET BY MOUTH EVERY EIGHT HOURS NEEDED FOR NAUSEA AND VOMITING prochlorperazine maleate 10 mg tablet TAKE ONE TABLET BY MOUTH EVERY EIGHT HOURS NEEDED FOR NAUSEA AND VOMITING com pleted prochlorperazine 10 MG Oral Tablet [facility] ([facility]) baclofen 10 mg tabs completed baclofen 10 mg tabs [facility] ([facility]) Acyclovir 400 MG Oral Tablet acyclovir 4 00 mg tablet TAKE ONE TABLET BY MOUTH TWICE DAILY acyclovir 400 mg tablet TAKE ONE TABLET BY MOUTH TWICE DAILY completed acyclovir 400 MG Ora l Tablet [facility] ([facility]) Potassium Chloride 20 MEQ Extended Relea se Oral Tablet potassium chloride ER 20 mEq tablet,extended release TAKE ONE TABLET BY MOUTH ONCE DAILY potassium chloride ER 20 mEq tablet,extended release TAKE ONE TABLET BY MOUTH ONCE DAILY completed potassium chlo ride 20 MEQ Extended Release Oral Tablet [facility] ([facility]) gabapentin 300 MG Oral Capsule gabapentin 300 mg capsu le gabapentin 300 mg capsule completed gabapentin 300 MG Oral Capsule [facility] ([facility]) jadenu 360 mg tabs completed j adenu 360 mg tabs [facility] ([facility]) ibuprofen 800 mg tabs completed ibuprofen 800 mg tabs [facility] ([facility]) ibuprofen 800 mg tabs completed ibuprofen 800 mg tabs [facility] ([facility]) gabapentin 600 mg tabs completed gabapentin 600 mg tabs [facility] ([facility]) Prednisone 20 MG Oral Tablet prednisone 20 mg tablet TAKE ONE TABLET BY MOUTH TWICE DAILY prednisone 20 mg tablet TAKE ONE TABLET BY MOUTH TWICE DAILY completed prednisone 20 MG Ora l Tablet [facility] ([facility]) Cyclophosphamide 50 MG Oral Capsule cyclophosphamide 5 0 mg capsule cyclophosphamide 50 mg capsule complet ed cyclophosphamide 50 MG Oral Capsule [facility] ([facility]) mupirocin 2 % oint completed m upirocin 2 % oint [facility] ([facility]) cephalexin 500 mg caps completed cephalexin 500 mg caps [facility] ([facility]) ibuprofen 800 mg tabs completed ibuprofen 800 mg tabs [facility] ([facility]) deferasirox 360 mg tabs completed deferasirox 360 mg tabs [facility] ([facility]) acyclovir 400 mg tabs completed acyclovir 400 mg tabs [facility] ([facility]) amoxicillin/clavulanate potassium 875-125 mg tabs completed amoxicillin/clavulanate potassium 875-125 mg tabs [facility] ([facility]) prednisone 20 mg tabs completed prednisone 20 mg tabs [facility] ([facility]) Cephalexin 500 MG Oral Capsule cephalexin 500 mg capsu le cephalexin 500 mg capsule completed cephalexin 500 MG Oral Capsule [facility] ([facility]) potassium chloride er 20 meq tbcr completed potassium chloride er 20 meq tbcr [facility] ([facility]) Ibuprofen 800 MG Oral Tablet ibuprofen 8 00 mg tablet TAKE ONE TABLET BY MOUTH THREE TIMES DAILY ibuprofen 800 mg tablet TAKE ONE TABLET BY MOUTH THREE TIMES DAILY completed ibuprofen 800 MG Oral Tablet [facility] ([facility]) baclofen 10 mg tabs completed baclofen 10 mg tabs [facility] ([facility]) Ondansetron 4 MG Disintegrating Oral Tab let ondansetron 4 mg disintegrating tablet DISSOLVE ONE TABLET UNDER THE TONGUE EVERY SIX HOURS NEEDED ondansetron 4 mg disintegrating tablet DISSOLVE ONE TABLET UNDER THE TONGUE EVERY SIX HOURS NEEDED completed ondansetron 4 MG Disintegrating Oral Tablet [facility] ([facility]) prochlorperazine maleate 10 mg tabs completed prochlorperazine maleate 10 mg tabs [facility] ([facility]) deferasirox 360 MG Oral Tablet deferasirox 360 mg tabl et deferasirox 360 mg tablet completed deferasirox 360 MG Oral Tablet [facility] ([facility]) doxycycline hyclate 100 MG Oral Capsule doxycycline hy clate 100 mg capsule doxycycline hyclate 100 mg capsule com pleted doxycycline hyclate 100 MG Oral Capsule [facility] ([facility]) ferrous sulfate 325 MG Oral Tablet nicole us sulfate 325 mg (65 mg iron) tablet TAKE ONE TABLET BY MOUTH TWICE DAILY ferrous sulfate 325 mg (65 mg iron) tabl et TAKE ONE TABLET BY MOUTH TWICE DAILY c ompleted ferrous sulfate 325 MG Oral Tablet [facility] ([facility]) mupirocin 2 % oint completed m upirocin 2 % oint [facility] ([facility]) Doxycycline Monohydrate 100 MG Oral Caps ule doxycycline monohydrate 100 mg capsule doxycycline monohydrate 100 mg capsule completed doxycycline monohydrate 100 MG Oral Capsule [facility] ([facility]) doxycycline hyclate 100 mg caps completed doxycycline hyclate 100 mg caps [facility] ([facility]) taltz 80 mg/ml soaj completed taltz 80 mg/ml soaj [facility] ([facility]) Amoxicillin 875 MG / Clavulanate 125 MG Oral Tablet amoxicillin 875 mg-potassium clavulanate 125 mg tablet amoxicillin 875 mg-potassium clavulanate 125 mg tablet completed Amoxici llin 875 MG / Clavulanate 125 MG Oral Tablet [facility] ([facility]) doxycycline monohydrate 100 mg caps completed doxycycline monohydrate 100 mg caps [facility] ([facility]) albuterol sulfate HFA 90 mcg/actuation a erosol inhaler INHALE TWO PUFFS BY MOUTH FOUR TIMES DAILY NEEDED [id number] completed [id number] 200 ACTUAT albuterol 0.09 MG/ACTUAT Metered Dose Inhaler [facility] ([facility]) gabapentin 300 MG Oral Capsule gabapentin 300 mg capsu le gabapentin 300 mg capsule completed gabapentin 300 MG Oral Capsule [facility] ([facility]) mupirocin 2 % oint completed m upirocin 2 % oint [facility] ([facility]) cyclophosphamide 50 mg caps com pleted cyclophosphamide 50 mg caps [facility] ([facility]) Omeprazole 20 MG Delayed Release Oral Ca psule omeprazole 20 mg capsule,delayed release omeprazole 20 mg capsule,delayed release completed omeprazole 20 MG Delayed Release Oral Capsule [facility] ([facility]) amoxicillin/clavulanate potassium 875-125 mg tabs completed amoxicillin/clavulanate potassium 875-125 mg tabs [facility] ([facility]) Alendronic acid 70 MG Oral Tablet alendr maikel 70 mg tablet TAKE ONE TABLET BY MOUTH EVERY SEVEN DAYS alendronate 70 mg tablet TAKE ONE TABLET BY MOUTH EVERY SEVEN DAYS completed alendronic acid 70 MG Oral Tablet [facility] ([facility]) acyclovir 400 mg tabs completed acyclovir 400 mg tabs [facility] ([facility]) ibuprofen 800 mg tabs completed ibuprofen 800 mg tabs [facility] ([facility]) celecoxib 200 mg caps completed celecoxib 200 mg caps [facility] ([facility]) cephalexin 500 mg caps completed cephalexin 500 mg caps [facility] ([facility]) baclofen 10 mg tabs completed baclofen 10 mg tabs [facility] ([facility]) celecoxib 200 MG Oral Capsule celecoxib 200 mg capsule celec oxib 200 mg capsule completed celecoxib 200 MG Oral Capsule [facility] ([facility]) Cephalexin 500 MG Oral Capsule cephalexin 500 mg capsu le cephalexin 500 mg capsule completed cephalexin 500 MG Oral Capsule [facility] ([facility]) mupirocin 2 % oint completed m upirocin 2 % oint [facility] ([facility]) doxycycline monohydrate 100 mg caps completed doxycycline monohydrate 100 mg caps [facility] ([facility]) Amoxicillin 875 MG / Clavulanate 125 MG Oral Tablet amoxicillin 875 mg-potassium clavulanate 125 mg tablet amoxicillin 875 mg-potassium clavulanate 125 mg tablet completed amoxici llin 875 MG / clavulanate 125 MG Oral Tablet [facility] ([facility]) prednisone 5 mg tabs completed prednisone 5 mg tabs [facility] ([facility]) omeprazole 20 mg cpdr completed omeprazole 20 mg cpdr [facility] ([facility]) Insurance Providers Payer name Policy type / Coverage type Policy ID Covered green party ID Covered green party's relationship to gustafson Policy [place] Plan Information FAY [id number] SP [id number] [facility] [id number] SP [id number] [facility] [id number] SP [id number] UHC UNITED MEDICARE DUAL G [id number] Self [id number] MEDICAID M [id number] Self [id number] [facility] O [id number] S [id number] MEDICAID M [id number] S [id number] MEDICARE [id number] SP [id number] T53 Unitedhealthcare Secure [employer]izons P [id number] S [id number] Medicaid S [id number] S [id number] Medicaid [facility] S D [id number] SELF [id number] [facility] Comm Plan Medicare F [id number] SELF [id number] Unitedhealthcare Secure [employer]iz[employer] P [id number] S [id number] MEDICARE [id number] SP [id number] T53 Medicaid S [id number] S [id number] T53 Medicare P [id number] S [id number] T53 MEDICAID [id number] SP [id number] Medicaid S [id number] S [id number] MEDICARE [id number] SP [id number] T53 MEDICARE A [id number] Self [id number] T53 MEDICARE C [id number] S [id number] T53 [facility] PART B C [id number] S [id number] Medicare P [id number] S [id number] T53 MEDICAID M [id number] Self [id number] [facility] COMMUNITY PLAN MCDHMO [id number] SP [id number] ANSI-Medicaid [id number] ANSI-Medicaid [id number] ANSI-Medicare Part B [id number] ANSI-Medicare Part B [id number] ANSI-Medicaid [id number] ANSI-Medicaid [id number] ANSI-Medicaid [id number] ANSI-Medicaid [id number] ANSI-Medicare Part B [id number] ANSI-Medicaid [id number] ANSI-Medicaid [id number] ANSI-Medicare Part B [id number] MEDICAID [id number] SP [id number] ANSI-Medicare Part B [id number] ANSI-Medicaid [id number] ANSI-Medicaid [id number] UN COMMUNITY PLAN [facility] [id number] SP [id number] ANSI-Medicare Part B [id number] ANSI-Medicaid [id number] ANSI-Medicaid [id number] MEDICAID [id number] SP [id number] ANSI-Medicaid [id number] ANSI-Medicaid [id number] ANSI-Medicare Part B [id number] Medicaid [facility] Part B [id number] Self [id number] Medicare [facility] Medicare Primary [id number] Self [id number] ANSI-Medicaid [id number] ANSI-Medicaid [id number] ANSI-Medicare Part B [id number] ANSI-Medicaid [id number] ANSI-Medicare Part B [id number] ANSI-Medicaid [id number] ANSI-Medicaid [id number] ANSI-Medicare Part B [id number] ANSI-Medicaid [id number] ANSI-Medicaid [id number] ANSI-Medicare Part B [id number] ANSI-Medicaid [id number] ANSI-Medicaid [id number] ANSI-Medicare Part B [id number] ANSI-Medicaid [id number] ANSI-Medicaid [id number] ANSI-Medicare Part B [id number] ANSI-Medicaid [id number] ANSI-Medicaid [id number] ANSI-Medicare Part B [id number] ANSI-Medicaid [id number] ANSI-Medicaid [id number] ANSI-Medicare Part B [id number] ANSI-Medicaid [id number] Medicaid S [id number] S [id number] ANSI-Medicaid [id number] ANSI-Medicaid [id number] ANSI-Medicare Part B [id number] UNHC COMMUNITY PLAN MCDHMO [id number] SP [id number] [facility] I [id number] Self [id number] Managed Care - Community Plan United Healthcare P [id number] S [id number] [facility] I [id number] Self [id number] Managed Care - Community Plan United Healthcare P [id number] S [id number] ANSI-Medicaid [id number] Medicaid S [id number] S [id number] UNHC COMMUNITY PLAN MCDHMO [id number] SP [id number] United Healthcare Hmo Commercial [id number] Self [id number] Managed Care - Community Plan United Healthcare P [id number] S [id number] Medicaid S [id number] S [id number] United Healthcare Hmo Commercial Self Managed Care - Community Plan United Healthcare P [id number] S [id number] O [id number] S [id number] Managed Care - Community Plan United Healthcare P [id number] S [id number] Medicaid S [id number] S [id number] Managed Care - Community Plan United Healthcare P [id number] S [id number] UNHC COMMUNITY PLAN MCDHMO [id number] SP [id number] Medicaid P [id number] S [id number] MEDICAID [id number] SP [id number] [facility] I [id number] Self [id number] MEDICAID M [id number] Self [id number] MEDICAID - CLINIC [id number] MEDICAID [id number] S [id number] Problems, Conditions, and Diagnoses Code Display Name Description Problem Type Effective Dates Data Source(s) 443.9 Peripheral vascular disease, unspecified Peripheral vascular disease, unspecified 09/22/2019 03:07:39 PM EDT [facility] S82.855G Nondisplaced trimalleolar fr acture of left lower leg, subsequent encounter for closed fracture with delayed healing Nondisplaced trimalleolar fracture of left lower leg, subsequent encounter for closed fracture with delayed healing 09/22/2019 03:07:39 PM EDT [facility] [id number] Finding by site Finding by Site Problem 09/22/2019 12:0 0:00 AM EDT [facility]) [id number] Closed trimalleolar fracture Closed Trimalleolar Fract ure Problem 09/22/2019 12:00:00 AM EDT [facility]) 719.47 Ankle pain Ankle pain 08/31/2019 01:27:29 PM ED T [facility] [id number] Finding of ankle or foot Finding of Ankle or Foot Prob ike 08/31/2019 12:00:00 AM EDT [facility] ([facility]) 729.5 Pain in left lower limb Pain in left lower limb 04/26/2019 02:47:59 PM EST [facility] [id number] Finding by site Finding by Site Problem 04/26/2019 12:0 0:00 AM EST [facility] ([facility]) M06.9 Rheumatoid arthritis, unspecified Rheumatoid art hritis, unspecified Diagnosis 03/20/2020 09:14:31 AM [facility] M25.559 Pain in unspecified hip Pain in unspecified hip Diagno sis 03/07/2020 12:32:50 PM [facility] 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 Procedure Description Date Indications Data Source(s) SURGERY CASE REQUEST OUTSIDE FACILITY ONLY SURGERY CA SE REQUEST OUTSIDE FACILITY ONLY Routine 03/20/2020 10:26 AM EST Rheumatoid arthritis of left ankle, unspecified whether rheumatoid factor present 03/20/2020 10:26:02 AM EST Rheumatoid ar thritis of left ankle, unspecified whether rheumatoid factor present [facility] Rheumatoid arthritis of left ankle, unsp ecified whether rheumatoid factor present RADEX ANKLE COMPLETE MINIMUM 3 VIEWS 10/16/2019 12:00: 00 AM EDT [facility] ([facility]) RADEX ANKLE COMPLETE MINIMUM 3 VIEWS 09/29/2019 12:00: 00 AM EDT [facility] ([facility]) RADEX FOOT COMPLETE MINIMUM 3 VIEWS 09/29/2019 12:00:0 0 AM EDT [facility] ([facility]) Results ID Date Data Source [id number] 03/20/2020 01:32:44 PM EST [facility] Name Value Range Interpretation Code Description Data Erin rce(s) Supporting Document(s) Progress Note [facility] [id number] [facility] [file] [id number] Date Data Source [id number] 03/07/2020 05:02:10 PM [facility] Name Value Range Interpretation Code Description Data Erin rce(s) Supporting Document(s) Progress Note [facility] [id number]tKEZhO5RgHHI1bV2zRUY5AWhPQrRoDoVpXyKs lbm [file] AgICAgICAgICAgICAgICAgICAgICAgICAgICAgICAg ICAgICAgICAgICAgICAgICAgICAgICAgICAgICAgICAgICAgICAgICAgICAgICAgICAgICAgICAgICAg DQogICAgICAgICAgICAgICAgICAgICAgICAgICAgICAgICAgICAgICAgICAgICAgICAgICAgICAgICAg ICAgICAgICAgICAgICAgICAgICAgICAgICAgICAgIC AgICAgICAgICAgDQogICAgICAgICAgICAgICAgICAgICAgICAgICAgICAgICAgICAgICAgICAgICAgIC AgICAgICAgICAgICAgICAgICAgICAgICAgICAgICAgICAgICAgICAgICAgICAgICAgICAgDQogICAgIC AgICAgICAgICAgICAgICAgICAgICAgICAgICAgICAg ICAgICAgICAgICAgICAgICAgICAgICAgICAgICAgICAgICAgICAgICAgICAgICAgICAgICAgICAgICAg ICAgDQogICAgICAgICAgICAgICAgICAgICAgICAgICAgICAgICAgICAgICAgICAgICAgICAgICAgICAg ICAgICAgICAgICAgICAgICAgICAgICAgICAgICAgIC AgICAgICAgICAgICAgDQogICAgICAgICAgICAgICAgICAgICAgICAgICAgICAgICAgICAgICAgICAgIC AgICAgICAgICAgICAgICAgICAgICAgICAgICAgICAgICAgICAgICAgICAgICAgICAgICAgICAgDQogIC AgICAgICAgICAgICAgICAgICAgICAgICAgICAgICAg ICAgICAgICAgICAgICAgICAgICAgICAgICAgICAgICAgICAgICAgICAgICAgICAgICAgICAgICAgICAg ICAgICAgDQogICAgICAgICAgICAgICAgICAgICAgICAgICAgICAgICAgICAgICAgICAgICAgICAgICAg ICAgICAgICAgICAgICAgICAgICAgICAgICAgICAgIC AgICAgICAgICAgICAgICAgDQogICAgICAgICAgICAgICAgICAgICAgICAgICAgICAgICAgICAgICAgIC AgICAgICAgICAgICAgICAgICAgICAgICAgICAgICAgICAgICAgICAgICAgICAgICAgICAgICAgICAgDQ ogICAgICAgICAgICAgICAgICAgICAgICAgICAgICAg ICAgICAgICAgICAgICAgICAgICAgICAgICAgICAgICAgICAgICAgICAgICAgICAgICAgICAgICAgICAg RNPrTTMyFLCeIFa0J8nsZBZtMSAeXS6tNNo3Eg4+FXjUDuNhZRM7jwMvnI2LLQ7lc9RqDUtiQEOxl1Pu ZDx2LI8TPMHkHSibUN9PSZgyfb6OSRTwLSTyaCAPz8 qaFhIdWLF5UJHpYuseOX0FQLZoL3knocKyAVOqAIATBL1GIsKxO8HeqE34KVHDPz8+DQplbmRvYmoNCj AmFWDxw9EdMRh6TH4AMHYdSsprp5DoZkQnEMHHSXyiUS2WGYP3DFLtIQMbFy5WEWUnW161cpTvBR9KPk 0GQpJoHA4dbo1NBsZaRHUvHayHCdr2NOtmJB3JiXNl OErBaa1dioJuaoTRu7DuahUkzEBZzxSbKBLoAQOjlCrgCDOsWIFtMJOhDa6uOMWfYYAaBeGiRXFTVD7A UKErGLUbhCYfQFZjUCDJVN8OSCdeVRJ0MJXdueSqoCCcPVelGL1XQTUouxSvMbVgQWHUYRw+Tq4QQJ6h z0LaRDpzZHMlQJ6dwi1CJCtTSkXzJ9Q4eUVuT1I1BR njMr3JTDLtBTHvRrXzPHVOWAriSE3OCT2zluL1UI3WvFHeAXKmDFWpcYPxTAu8R96teMWtUEwvIW4GCA A+Anel+Og9PLTPiHAYpSJXbThChFVXJUsPcD4WsG6CSr3TzU6WgBK42aQgejmDkINnuSW9WKD2yOAOuFQ FHLY0XnZGwbP0wwpYfDsBfTJZRVkIwL55klHOoEWRe SNThWUCwAp6PKFGnM6HvmdSevAgzeyIbIYRbLHIQST6JQGfxywErgFQrgPjvSB60kDgtEL2YXn7JYmSr EV3oei9VoUCgRb5AZRPjDU7RSABoALEeMTUmMPS0SUHfJkExZWuhEFQeMFZqEXC0JNKmHZPcHB9FUlAd QOUwFLk3UFwdQCTpKMYsgp3UPUGwFJMjIKTtLeOhYJ KuDTUjWOweQHNwKTRrRBZ2EBCqHOFcMA1ZVlHvZRJsLEIuWBhxLAYdICKrly7CSQNqPFSbLnZyFzAbTB YsLFNuMKpfRIGxYQJ5BanuVKNoCEEaXF9QOlRxSAEkJBZ7UimoXKOlMKZiok5CTMJzKVXbKIO4UZJmKF ZxZNAaIKeoOYOvEDH0ZjV0LZKpKZSeHJ0FDiOxEKAo HHJ0SIetFPSuWFKoyt4OVYRdLDIgJtRmWATmQKIzUBDkENyxHJEbNZG7EbYbDTFkWSPbKG6ZJqFdZQGo ZTs6YsTdXOIoEKGejt1XFBKcQTOoVgd3JAZaWQUvLTHkXKivGEAuNFB5AZG4ZQBgHYEmBJ6ZIaKjSYXi VDdjPsFmXDYoVJKegq5XZIThECYpIFLaEOSnLDXiAW FvZHweSEKjIUY3Pnx3AHQjDOXvWT6AZiHhVBLcBKt4TwedVPZeXCYvbe4SVLKsUVVoWYg6CrWoQYYxUB AqHRnkMRRzYMEpFBHoZMAlNWXdPJ9XUoXsJRIwTyK8SDRlGRGmBHRqho2THXGqXDFcWLLgXJFaKLHsSS KpXQv7prWbsVKdHNa8PP0QS3VvxrSjRjCGKm0Px426 PAR1JFAdRz3RX7uwDl1eVCCnIHQNPp5AZTt2TAU2P1ZaTTX4NUFrAzZdDIVzN1OtGRMlZfHqNrIqVlo+ FSx1Rjo6TiIdYBBfFSXwMIV5QPLsRnNaXpEvG1FqSsLwJU5bRCIVRr3+DQpzdGFydHhyZWYNCjIxODgy DXsnKSDGNy4A ID Date Data Source [id number] 03/07/2020 05:02:05 PM [facility] Name Value Range Interpretation Code Description Data Erin rce(s) Supporting Document(s) Progress Note [facility] FAHZOy8aVjATIrZa97/SRDxnHJNas2IxOVkcQAx0MQviQSIgL7GiVDJ9nY8nSQV9GEpYEuWmBiTvMnPu lbm [file] l+1xrE3PlS3HgRnzv81NZu8AivUtaHY7oRQ3KciYXQaVEflbVWrlk3uxb1GSftF5lQrKRhizvgIY/jose antonio [file] AgICAgICAgICAgICAgICAgICAgICAgICAgICAgICAgICAgICAgICAgICAgICAgICAgICAgICAgICAgIC AgICAgICAgICAgICAgICAgICAgICANCiAgICAgICAgICAgICAgICAgICAgICAgICAgICAgICAgICAgIC AgICAgICAgICAgICAgICAgICAgICAgICAgICAgICAg ICAgICAgICAgICAgICAgICAgICAgICAgICAgICAgICANCiAgICAgICAgICAgICAgICAgICAgICAgICAg ICAgICAgICAgICAgICAgICAgICAgICAgICAgICAgICAgICAgICAgICAgICAgICAgICAgICAgICAgICAg ICAgICAgICAgICAgICANCiAgICAgICAgICAgICAgIC AgICAgICAgICAgICAgICAgICAgICAgICAgICAgICAgICAgICAgICAgICAgICAgICAgICAgICAgICAgIC AgICAgICAgICAgICAgICAgICAgICAgICANCiAgICAgICAgICAgICAgICAgICAgICAgICAgICAgICAgIC AgICAgICAgICAgICAgICAgICAgICAgICAgICAgICAg ICAgICAgICAgICAgICAgICAgICAgICAgICAgICAgICAgICANCiAgICAgICAgICAgICAgICAgICAgICAg ICAgICAgICAgICAgICAgICAgICAgICAgICAgICAgICAgICAgICAgICAgICAgICAgICAgICAgICAgICAg ICAgICAgICAgICAgICAgICANCiAgICAgICAgICAgIC AgICAgICAgICAgICAgICAgICAgICAgICAgICAgICAgICAgICAgICAgICAgICAgICAgICAgICAgICAgIC AgICAgICAgICAgICAgICAgICAgICAgICAgICANCiAgICAgICAgICAgICAgICAgICAgICAgICAgICAgIC AgICAgICAgICAgICAgICAgICAgICAgICAgICAgICAg ICAgICAgICAgICAgICAgICAgICAgICAgICAgICAgICAgICAgICANCiAgICAgICAgICAgICAgICAgICAg ICAgICAgICAgICAgICAgICAgICAgICAgICAgICAgICAgICAgICAgICAgICAgICAgICAgICAgICAgICAg ICAgICAgICAgICAgICAgICAgICANCiAgICAgICAgIC AgICAgICAgICAgICAgICAgICAgICAgICAgICAgICAgICAgICAgICAgICAgICAgICAgICAgICAgICAgIC AgICAgICAgICAgICAgICAgICAgICAgICAgICAgICANCjw/uASqF5yteCUitwS6W9rsYp5MTz8TNT8mb0 OgPLWbIOeqinZmYvmPTqHyKYBqPrqCFjo4ZKmkZB2O tDSrA2HlG1KzYBgiKF8THOGbFILqpWUoDFWeWVCyKgS4HDDlCTjwLS1CwOFaNZpbMUYdOIFuIkRgYRQw BOKsQFStSHAkOHVGRMKnPQGkHtHhBLIxJXCmKB1IIVRnL427fbAnAh8ARw3HZcXhDO2mrl9JSeWbIMJv SxrURmr9TEskQW1RoNQaiOKiCoCxGMLEKgYeS8oka3 HkEdIyAQJKNIscZM0Aq9MpqHDcQNv+Ye0SOZ6rf8ThONxhMsIpFC3ojj2UZImRLyUwJ8PqpQplROWub4 soJZAqFN6ykEViUAU9PFYccfSsPNZxdnHnTAAfmtTgHLKrlkonBYDJGwIriAThKx1uLrKrCvFvXBN6Va KuFW1oCZgpSA0CVFA3MRunIWSwRUImS3iKWsQuJEGa UuFowUxiWU6DHiFeN8OzdoNvbEZzBtUjDXBULx6+LTbdmmXiDfcKTnN9DRWoq0ZlXFv1RU5JPYUoALiw XM9KWVAimV1cSEunNA8PXfFdZUOgELFXFwTqY70pxFFdIBx3J1PjJnRuHVPdKbzzSPPyDEmxSiJkPZGe WyBdDQogID4+ID4+FVmjEG9GZXrkdlRdWBEiLl1FUC OdCGQaFG4aUYQpECVhZ4I5pHkqAHRLPmSrP6emdcbmME9pUPFvK767jNkdomQxWTCqBBLjVg3CDLEjNX T0LFIqxDRdXvDkPKNQLUolAV1OrVJgVBO2qM5tFVufPKRiRDSdA8xLHfMlqAdrOU20tHkcywGjfVAeJN o+Ge1TFO4bh7CzDBg8thFuLTsoWCV1EPfgYNXsFHMn TQIuLKO2MSF6ZZYCPwDnLKZwLFXbAAziMOLlNIRfcm3QUJTiYFEuVlCoUtJnFQBnMMArZHexZBQkWFW5 ZPU9CHJxJZXhEL9KKaFiUJVyQHIpNVytUOIrZSDspj2BHFQiGZMcTDB6ZZBqGJHrOBCtGVwrTIUcNHX3 Uce0PFSoDXCnVE7GMsVvPPFrVTjqQrXhPRVcUWVjxv 8VSTRwVPReDoW7MARnGXXiLUWxQWjhUWZhYLI5WLIxAXTbFLYdNW9XTqDhMOTuTSNyToItDHIcVIBxlq 4CSKKrKMWyIzQ3EsGfVFEjHAQgDUyuOIEvSVMtEIN8MUQhIWZoEH5SQyZbLRNzQJH2MbMiUFJuGIWnlm 1SPRBcWDEtRvOnLLIeQPPsPZBeDZcrKENrUXH4JBX6 KOZpZGCzXE1HPoYxBJViKCs4KDWmVRKoMUIzzi4JYVFrSVJtTQstMtHzHQMvYDWcKPulQXJzVYPwHNv6 LJBtKLZlAP6PSzBnEOCzScOtLYNaVIMbRPJsga8MBPJkOUYtTcR9GLCiWHHjVJVhWStlFSVbXEAaSiSm DQTfTFAfGC7CRrLvXMSdLyI9MhGvEOGyLWWnae4RNQ QzSQQdEmj3WNNsJLDbCRXlZFhhGGCnVSA9AMt8IJHuBUPkSL2AAuUfFMBwDsCgGZNeAXLlPQHozu1HBE HfXTDwYCZ8RZMrCTEeRHGtNAnzXPWqPRU4ZyywMUHkTDBjQN7ZXtUeEKKmPuX8IoNdCYTsJHDugw7MJX ZyNMYnALniBwRkNDMpMERfVRsiMKAdOXA2LYQbGKAi RCIeWK6MCfGhZIYuXdK3LZtqEUTkXFSjlm0JGKHxGZFaSla8UZWcDOMtWJGbQUvySYJwXOZ4JYMuCRQq YKMjBL7VIyHcYDEkEnmfINiyKZMmMMSbcy6LpVPivIzlog0HHSlECh2TyZvjVYF4AQxkCi7joMJlKIFj HTPZVg3ZwtVoBICuATYYDKfiBXBrZAUhGjDqT2JyOU OaOHD4YOQ4ZuL6BRT0NNA5YYX5TDRaQjR6HnSeOdQ3BND2D4HvEJLbJvwuUmvxQCL6FdCsKcE6EqY+IF 0gDQo+Dj4Zg9EggaJ3quRwNUfmSTR5Tv4CWSEKC2HCAu== ID Date Data Source [id number] 01/09/2020 01:00:41 PM EDT [facility] Measurements & CalculationsHeight: 71 inches (5 ft. 11 in.) 180.34 cm Weight: 191 pounds 86.82 kg Body Mass Index (BMI): 26.74BMI Interpretation: OverweightBody Surface Area (BSA): 2.07Weight Management Education Done (Nutrition/Physical Activity)Vital SignsTemperature: 97.4F tympanic Pulse Rate: 81 beats/minuteRespiratory Rate: 16 respirations/minuteBlood Pressure: 114/79 left arm sitting automaticO2 Saturation: 96% sittingVital Signs performed by: Neha Diana MA, January 09, 2020 1:25 PMInitial Intake Information From: patientRoom #: 14Infectious Disease / Travel ScreeningRecent travel for you or any close contacts? NoHave you had any close contact with anyone diagnosed with or under investigation for COVID-19 (coronavirus)? NoFever? NoRespiratory symptoms: cough, cold, congestion, shortness of breath, difficulty breathing? NoLoss of smell? NoLoss of taste? NoSmoking, Tobacco, Vaping or Smoke Exposure StatusSmoke Status: former smokerTobacco Use: NoDo you vape? NoPassive Smoke Exposure: NoHealthcare HistorySince your last office visit...Have you been admitted to the hospital? NoHave you been to an emergency room (ER) or urgent care clinic? NoHave you seen another healthcare provider? Yes - [facility] (Breast Imaging) Bone Density Test, Rheum (Dr Villagomez), Orthopedic (Darrell)Healthcare provider date reported today: 01/09/2020Have you seen a dentist? NoIntake performed by: Neha Diana MA, January 09, 2020 1:10 PMRate Your HealthIn general, would you say your health is? FairPain AssessmentAre you currently having any pain which... You would like your provider to address? Yes Affects your activity level? YesDepression Screening - PHQ-2Over the last two weeks, have you... Had little interest or pleasure in doing things? Not at all Been feeling down, depressed, or hopeless? Not at all PHQ-2 Score: 0Anxiety Screening - PORTIA-2Over the last two weeks, have you been... Feeling nervous, anxious, or on edge? Not at all Unable to stop or control worrying? Not at all PORTIA-2 Score: 0Food InsecurityWithin the past year...Did you worry whether your food would run out before you got money to buy more? Never trueWas there a time when the food you bought didn't last and you didn't have money to get more? Never truePain AssessmentPain ScaleNumeric Rating Scale: 9 / 10Location: backCharacter/Quality: aching and pressureIs the pain radiating? YesTo what body part(s) is the pain radiating? R Hip, R side of Back, weaning off PrednisoneScreening, Brief Intervention, & Referral to Treatment (SBIRT)Pre-Screening Questions How many times have you have 5 or more drinks in a day? 0How many times have you used an illegal drug or used a prescription medication for a non-medical reason? 365Performed by: Neha Diana MA, January 09, 2020 1:13 PMPatient History Medical History:JIARA and psoriatic arthrtisSubstance Abuse-MarijuanaLGL (Leukemia)(08/2018)Surgical History:Left TH replacement 2007right hand tendon rupture repair- 2015Family History:No known family historySocial/Personal History:Smoking History:Patient has never smoked. Chief Complaintfollow-up visit/ Depression, req HHAHistory of Present Illness (HPI)Seeing Ortho and Rheumatology and they are managing his rheumatoid arthritis as well as considering surgery for the non-healing fracture. He was also anemic at last check a month ago with a hemoglobin of 9.7. Has been fatigued lately. History of leukemia. It has been a while since he has seen his Oncologist here in [place] and he is working on scheduling an appointment. Also with osteopenia. Ortho is scheduling a bone density for this.Has problems getting around his own apartment and is asking for the help of a home health aide. HPI performed by: Mulugeta Ritter MD, January 09, 2020 1:29 PMTransitions of Care InboundProblem ReviewProblem List was reviewed and/or updated during this visit.Medication Reconciliation & ReviewMedication List was reviewed and/or updated during this visit, including review of any gadu-nma-bnnguwm medications, herbal therapies, and/or supplements.Allergy ReviewAllergy List was reviewed and/or updated during this visit.Adult Preventive CareProvider Calculated and Reviewed all Clinical Protocols for patient today. Labs/Meds/Other Counseling-Nutrition and Physical Activity:BMI Interpretation: Overweight (01/09/2020) Counseling: Done (01/09/2020) Physical Activity: Done (01/09/2020)Review of Systems General: Complains of fatigue. Denies dizziness. Cardiovascular: Denies chest pain. Respiratory: Denies difficulty breathing, shortness of breath. Gastrointestinal: Denies diarrhea, constipation. Genitourinary: Denies pain with urination, urinary frequency, urinary urgency, incomplete emptying. Physical ExamGeneral Appearance: well nourished, well hydrated, no acute distressRespiratory, Auscultation: clear to auscultation bilaterally; no rales, rhonchi, or wheezesRespiratory, Effort: no intercostal retractions or use of accessory musclesCardiovascular, Auscultation: S1, S2 audible; no murmur, rub, or gallop; RRRGait & Station: In power wheelchair.Orientation: oriented to time, place, and personMood & Affect: no depression, anxiety, or agitationJudgment & Insight: intactCare Management Plan Transitions of CareInboundRate Your HealthIn general, would you say your health is? FairAssessment & Plan Problems:Assessed:Impaired mobility (SXL48-T98.09) Assessment: Instructions: I think that a home health aide is medically indicated. He has a non healing fibular fracture and ongoing issues with rheumatoid arhtiris and polyarthralgias.Recheck as scheduled with Ortho and Rheumatology.Recheck here 3 months.Patient Instructions/Care Plan: Impaired mobility: I think that a home h ealth aide is medically indicated. He has a non healing fibular fracture and ongoing issues with rheumatoid arhtiris and polyarthralgias.Recheck as scheduled with Ortho and Rheumatology.Recheck here 3 months. Plan developed in collaboration with patient and/or familyMedications:SHOWER CHAIR.RICHELLE-CITRATE PLUS VITAMIN D 250-100 MG-UNIT ORAL TABLETFOSAMAX TABLETWHEELLCHAIR REPAIRSREPLACEMENT BATTERY FOR SCOOTER.XELJANZ 5 MG ORAL TABLETXELJANZ 10 MG ORAL TABLET8 HOUR PAIN RELIEVER 650 MG ORAL TABLET EXTENDED RELEASETALTZ 80 MG/ML SUBCUTANEOUS SOLUTION AUTO-INJECTOROMEPRAZOLE 20 MG ORAL CAPSULE DELAYED RELEASEB-12 1000 MCG ORAL TABLETGABAPENTIN 600 MG ORAL TABLETMedication Changes:Added: FOSAMAX TABLET-Take once a weekCAL-CITRATE PLUS VITAMIN D 250-100 MG-UNIT ORAL TABLETNew Prescription:* SHOWER CHAIR.-UAD Qty: 1 Refills: 0 Method: Print then Give to PatientAllergies:No Known Allergies (updated 09/07/2019) Orders:Adult - Ofc Vst, EST, Level III [CPT-16506] Medications:SHOWER CHAIR. 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 Pt reports pain 12/13 today in lower back (r side especially) and R hip. Pt requests refill on Omeprazole Name Value Range Interpretation Code Description Data Erin rce(s) Supporting Document(s) ID Date Data Source [id number] 01/04/2020 07:47:09 AM EDT [facility] Name Value Range Interpretation Code Description Data Erin rce(s) Supporting Document(s) Progress Note [facility] [id number] m [file] [id number]= ID Date Data Source [id number] 01/03/2020 03:34:08 PM EDT [facility] Name Value Range Interpretation Code Description Data Erin rce(s) Supporting Document(s) Progress Note [facility] [id number] lbm [file] [id number]= ID Date Data Source [id number] 12/09/2019 02:36:00 PM EDT [facility] Name Value Range Interpretation Code Description Data Erin rce(s) Supporting Document(s) ESR 60 mm/hr 0-15 H [facility] HCT 29.8 % 42.0-52.0 L [facility] HGB 9.7 g/dL 13.5-17.5 L [facility] MCH 32.6 G/DL pg 32.0-36.5 N [facility] MCHC 37.2 PG % 27.0-33.0 H [facility] PLATELETS 308 10 10*3/mm3 150-450 N [facility] RBC 2.61 10 10*6/mm3 4.30-6.10 L [facility] RDW 15.7 % 11.5-14.5 H [facility] WBC TOTAL 7.2 4.0-10.0 N [facility] ID Date Data Source [id number] 12/09/2019 02:36:00 PM EDT [facility] Name Value Range Interpretation Code Description Data Erin rce(s) Supporting Document(s) BG FASTING 135 mg/dL 70-100 H [facility] CRP 2.39 mg/dL 0.00-0.30 H [facility] ID Date Data Source [id number] 12/08/2019 01:47:49 PM EDT [facility] Measurements & CalculationsHeight: 71 inches (5 ft. 11 in.) 180.34 cm Weight: 193 pounds 87.73 kg Body Mass Index (BMI): 27.02BMI Interpretation: OverweightBody Surface Area (BSA): 2.08Weight Management Education Done (Nutrition/Physical Activity)Vital SignsTemperature: 97.8F tympanic Pulse Rate: 77 beats/minuteRespiratory Rate: 14 respirations/minuteBlood Pressure: 114/80 right arm sitting automaticO2 Saturation: 98% sittingVital Signs performed by: Neha Diana MA, December 08, 2019 2:11 PMInitial Intake Information From: patientRoom #: 14Infectious Disease / Travel ScreeningRecent travel for you or any close contacts? NoHave you had any close contact with anyone diagnosed with or under investigation for COVID-19 (coronavirus)? NoFever? NoRespiratory symptoms: cough, cold, congestion, shortness of breath, difficulty breathing? NoLoss of smell? NoLoss of taste? NoSmoking, Tobacco, Vaping or Smoke Exposure StatusSmoke Status: former smokerTobacco Use: NoDo you vape? NoHealthcare HistorySince your last office visit...Have [facility]: [facility]Have you been to an emergency room (ER) or urgent care clinic? NoHave you seen another healthcare provider? NoHave you seen a dentist? NoIntake performed by: Neha Diana MA, December 08, 2019 1:56 PMRate Your HealthIn general, would you say your health is? PoorPain AssessmentAre you currently having any pain which... You would like your provider to address? Yes Affects your activity level? YesDepression Screening - PHQ-2Over the last two weeks, have you... Had little interest or pleasure in doing things? More than half the days Been feeling down, depressed, or hopeless? More than half the days PHQ-2 Score: 4Anxiety Screening - PORTIA-2Over the last two weeks, have you been... Feeling nervous, anxious, or on edge? No t at all Unable to stop or control worrying? Not at all PORTIA-2 Score: 0PHQ-9 1. Over the last 2 weeks, patient reports the following frequency of symptoms: a. Little interest or pleasure in doing things -More than half the days b. Feeling down, depressed, or hopeless -More than half the days c. Trouble falling asleep, staying asleep, or sleeping too much -Several days d. Feeling tired or having little energy -Several days e. Poor appetite or overeating - Several days f. Feeling bad about yourself, feeling that you are a failure, or feeling that you have let yourself or your family down -Several days g. Trouble concentrating on things such as reading the newspaper or watching television -More than half the days h. Moving or speaking so slowly that other people could have noticed. Or being so fidgety or restless that you have been moving around a lot more than usual -Several days i. Thinking that you would be better off or that you want to hurt yourself in some way -Not at all2. If you checked off any problems, how difficult have these problems made it for you to do your work, take care of things at home, or get along with other people? - Very DifficultToday's PHQ-9 Results Score: 12 Severity: Moderate Diagnosis Recommendation: Other Depression Functional Impairment: Very DifficultPain AssessmentPain ScaleNumeric Rating Scale: 9 / 10Location: both sides of L foot and L elbowDuration: chronicCharacter/Quality: aching, stabbing, throbbing and pressureIs the pain radiating? NoScreening, Brief Intervention, & Referral to Treatment (SBIRT)Pre-Screening Questions How many times have you have 5 or more drinks in a day? 0How many times have you used an illegal drug or used a prescription medication for a non-medical reason? 182Performed by: Neha Diana MA, December 08, 2019 1:59 PMPatient History Medical History:JIARA and psoriatic arthrtisSubstance Abuse-MarijuanaSurgical History:Left TH replacement 2007right hand tendon rupture repair- 2015Family History:No known family historySocial/Personal History:Smoking History:Patient has never smoked. Chief ComplaintF/U - meds and History of Present Illness (HPI)Pt wants to discuss issues with depression and requests therapy and or counseling, possibly meds. He has had issues for a while with bipolar, ADHD, anxiety and depression.Denies thoughts of self harm.Pt states he's started talking to "no one" & other people ask "who are you talking to?" he states he doesn't even realize he is doing it! But it scares him.Pt requests refills on omeprrazolePt requests a home health aide and a shower chair. He has been seeing Dr. Alberts for this and they are planning surger for this soon. They have apparently tried him on a cast and a boot with no success with either one of these. There are no records on the chart about their treatment of this today but we will obtain these. He has apparently asked them about a home health aide and a shower chair but according to patient they told him to ask me.Pt [facility] for gastroperesis (he claims it was food poisoning)HPI performed by: Mulugeta Ritter MD, December 08, 2019 2:22 PMTransitions of Care InboundProblem ReviewProblem List was reviewed and/or updated during this visit.Medication Reconciliation & ReviewMedication List was reviewed and/or updated during this visit, including review of any fgkn-dek-xgeutyy medications, herbal therapies, and/or supplements.Allergy ReviewAllergy List was reviewed and/or updated during this visit.Adult Preventive CareProvider Calculated and Reviewed all Clinical Protocols for patient today. Labs/Meds/Other Counseling- Nutrition and Physical Activity:BMI Interpretation: Overweight (12/08/2019) Counseling: Done (12/08/2019) Physical Activity: Done (12/08/2019)Review of Systems General: Denies chills, dizziness, fatigue, fever. Cardiovascular: Denies chest pain. Respiratory: Denies difficulty breathing, shortness of breath. Gastrointestinal: Denies nausea, vomiting, diarrhea. Genitourinary: De nies pain with urination, burning with urination, urinary frequency, urinary urgency, incomplete emptying. Physical ExamGeneral Appearance: well nourished, well hydrated, no acute distressRespiratory, Auscultation: clear to auscultation bilaterally; no rales, rhonchi, or wheezesRespiratory, Effort: no intercostal retractions or use of accessory musclesCardiovascular, Auscultation: S1, S2 audible; no murmur, rub, or gallop; RRRPeripheral Circulation: Right foot with deformity at lateral malleolus. Skin intact.Gait & Station: normalSkin, Inspection: no rashes, lesions, or ulcerationsOrientation: oriented to time, place, and personJudgment & Insight: intactCare Management Plan Transitions of CareInboundRate Your HealthIn general, would you say your health is? PoorAssessment & Plan Problems:Assessed:Ankle pain (ICD-719.47) (FOI83-R85.579) Assessment: Instructions: Awaiting records from foot surgeron to make determinations about home health aide and shower chair. I am not sure of di agnosis or plan.Generalized anxiety disorder (ICD-300.02) (KQS22-J46.1) Assessment: Instructions: With PTSD and reportedly bipolar disorder.Refer for telepsych and in house counselling.Patient Instructions/Care Plan: Ankle pain: Awaiting records from foot surgeron to make determinations about home health aide and shower chair. I am not sure of diagnosis or plan.Generalized anxiety disorder: With PTSD and reportedly bipolar disorder.Refer for telepsych and in house counselling. Plan developed in collaboration with patient and/or familyMedications:XELJANZ 5 MG ORAL TABLETXELJANZ 10 MG ORAL TABLET8 HOUR PAIN RELIEVER 650 MG ORAL TABLET EXTENDED RELEASETALTZ 80 MG/ML SUBCUTANEOUS SOLUTION AUTO-INJECTOROMEPRAZOLE 20 MG ORAL CAPSULE DELAYED RELEASEB-12 1000 MCG ORAL TABLETGABAPENTIN 600 MG ORAL TABLETMedication Changes:Added: 8 HOUR PAIN RELIEVER 650 MG ORAL TABLET EXTENDED RELEASEXELJANZ 10 MG ORAL TABLETXELJANZ 5 MG ORAL TABLETRefilled:OMEPRAZOLE 20 MG ORAL CAPSULE DELAYED RELEASE-Take 1 po BID Qty: 60[Capsule] Refills: 2 Method: ElectronicRemoved:TRAMADOL HCL 50 MG ORAL TABLET-BID prn pain, ONDANSETRON HCL 8 MG ORAL TABLET-every 6 hrs as needed for nausea and vomiting, CYCLOPHOSPHAMIDE 50 MG ORAL CAPSULE-once daily, BACLOFEN 10 MG ORAL TABLET-bid PRN spasm, IBUPROFEN 800 MG ORAL TABLET-1 tab tid PRNAllergies:No Known Allergies (updated 09/07/2019) Orders:Adult - Ofc Vst, EST, Level III [CPT-90411] Telepsychiatry Consult [CPT-03136] Mental Health Consult [CPT-32088] Follow-Up Return to clinic: 1-2 months for follow upMedications:OMEPRAZOLE 20 MG ORAL CAPSULE DELAYED RELEASE (OMEPRAZOLE) Take 1 po BID #60[Capsule] x 2 Route:ORAL Entered and Authorized by: Mulugeta Ritter MD Method used: Electronically to [facility]* (retail) [address] [place] [address] Note to Pharmacy: Route: ORAL; RxID: [id number] signed by Mulugeta Ritter MD on 12/08/2019 at 3:51 PM Name Value Range Interpretation Code Description Data Erin rce(s) Supporting Document(s) ID Date Data Source [id number] 11/18/2019 07:33:00 AM EDT [facility] Name Value Range Interpretation Code Description Data Erin rce(s) Supporting Document(s) HCT 29.5 % 42.0-52.0 L [facility] HGB 9.9 g/dL 13.5-17.5 L [facility] MCH 33.6 G/DL pg 32.0-36.5 N [facility] MCHC 37.5 PG % 27.0-33.0 H [facility] PLATELETS 225 10 10*3/mm3 150-450 N [facility] RBC 2.64 10 10*6/mm3 4.30-6.10 L [facility] RDW 14.6 % 11.5-14.5 H [facility] WBC TOTAL 6.3 4.0-10.0 N [facility] ID Date Data Source [id number] 11/17/2019 08:20:00 AM EDT [facility] Name Value Range Interpretation Code Description Data Erin rce(s) Supporting Document(s) HCT 32.1 % 42.0-52.0 L [facility] HGB 11.1 g/dL 13.5-17.5 L [facility] MCH 34.6 G/DL pg 32.0-36.5 N [facility] MCHC 37.9 PG % 27.0-33.0 H [facility] PLATELETS 241 10 10*3/mm3 150-450 N [facility] RBC 2.93 10 10*6/mm3 4.30-6.10 L [facility] RDW 14.7 % 11.5-14.5 H [facility] WBC TOTAL 12.0 4.0-10.0 H [facility] ID Date Data Source [id number] 11/15/2019 02:19:00 PM EDT [facility] Name Value Range Interpretation Code Description Data Erin rce(s) Supporting Document(s) HCT 35.1 % 42.0-52.0 L [facility] HGB 12.0 g/dL 13.5-17.5 L [facility] MCH 34.2 G/DL pg 32.0-36.5 N [facility] MCHC 37.7 PG % 27.0-33.0 H [facility] PLATELETS 314 10 10*3/mm3 150-450 N [facility] RBC 3.18 10 10*6/mm3 4.30-6.10 L [facility] RDW 14.6 % 11.5-14.5 H [facility] WBC TOTAL 12.9 4.0-10.0 H [facility] ID Date Data Source [id number] 11/15/2019 02:19:00 PM EDT [facility] Name Value Range Interpretation Code Description Data Erin rce(s) Supporting Document(s) APPEARANCE U HAZY CLEAR N [facility] SPEC GR URIN 1.021 1.002-1.035 N [facility] UA COLOR YELLOW YELLOW N [facility] ID Date Data Source [id number] 11/12/2019 01:44:52 PM EDT [facility], PCName: Flash ArmijoOB: 1980Provider: Alison Anglin: 11/09/2019 History of Present IllnessCHIEF COMPLAINT Left elbow pain.HISTORY OF PRESENT ILLNESSThe patient is a 39-year-old ryjd-sasp-eamaegxh male who comes in today for an initial evaluation complaining of left elbow pain. He is here for a second opinion. The patient states he has been experiencing severe pain in the left elbow over the past 6 months. He states he has limited range of motion of the left elbow. The patient states he has been experiencing left elbow pain for many years. The patient notes he has rheumatoid arthritis for which he utilizes prednisone, gabapentin, Tylenol and Taltz. He states he does not see a non destructive evaluation specialist. He notes he does not utilize rheumatoid medications due to leukemia. The patient states he received a cortisone injection years ago which was helpful for a short time. He utilizes Biofreeze patches. He states the left elbow "pops in and out of place." Results/Data OtherX-rays obtained on 04/16/2016 and reviewed today include 4 views of the left elbow for the indication of pain. Radiographic findings demonstrate an elbow with severe joint space narrowing of the elbow joint. There are multiple loose bodies surrounding the elbow. There is erosion of the olecranon.X-rays obtained on 05/25/2018 and reviewed today include 4 views of the left elbow for the indication of pain. Radiographic findings demonstrate progressive arthropathy of the elbow with significant joint space narrowing diffusely about the elbow and increased erosion of the olecranon with multiple loose bodies. This is consistent with rheumatoid arthritis. AssessmentASSESSMENTLeft elbow pain consistent with severe rheumatoid arthritis of the elbow. PlanPLANThe patient is a 39-year-old bgtz-jwzp-xplhxvwy male with left elbow pain consistent with severe rheumatoid arthritis of the elbow. I discussed this in detail with the patient, I discussed that the natural history of osteoarthritis is one of progressive worsening with worsening pain and function over time. Nonoperative management options include observation, physical therapy, anti-inflammatories, cortisone injections. I explained that with severe osteoarthritis physical therapy can be painful due to the increased motion. However it is important to continue to work on maintaining range of motion with normal activities. I have explained that all of these measures are temporary, aimed at providing pain relief. None of these measures will help with motion loss caused by osteophyte formation and loss of cartilage. Surgical op tions for elbow arthritis include total elbow arthroplasty and occasionally reverse elbow arthroplasty depending on rotator cuff function and bony defects. I discussed the surgeries in detail with the patient. I have explained that these surgeries should be performed after failure of nonoperative management and when quality of life is poor due to the dysfunction. The patient understands this. I have explained that these are very good pain relieving operations and help to improve function and motion as well. The patient understands this.The patient is very young and considering a total elbow arthroplasty would likely not last him throughout his lifetime. This would help with his motion and function. This would be the best option surgically aside from fusion which would be very functionally limiting. He understands this. Prior to considering this I think we should attempt further nonoperative management with an injection. I recommend this today. He understands and agrees. We will see him back in 3 months to assess his progress.I advised the patient that steroid injections are frequently used to provide relief from musculoskeletal pain and to aid in the diagnosis of musculoskeletal problems. This injection offers a variety of benefits and various potential risks associated the medication administered during the injection. I informed the patient that alternatives to this injection include no treatment, use of rehabilitation and exercise, use of a different medication (oral and injectable), and surgical intervention, when appropriate. I advised the patient that the risks associated with this injection include: an allergic reaction to the medication, pain at the injection site, possible infection of the injection site, facial flushing and skin changes, temporary increase in blood sugar, tendon, muscle or nerve injury, avascular necrosis, and that there may not be a beneficial effect at all.After discussing the risks and benefits, and obtaining consent and timeout the left elbow was sterilely prepped. Under sterile technique, 2 cc 1% lidocaine and 1 cc of 40 mg/mL Depo- Medrol were injected into the left elbow. The procedure was tolerated well. Scribed by Evelio Marsh on 11/10/2019 at 01:05 PM for Josefina Anglin Signatures Electronically signed by : Evelio Marsh MA; Nov 10 2019 1:05PM EST (Author) Electronically signed by : Josefina Anglin M.D.; Nov 12 2019 1:44PM EST Name Value Range Interpretation Code Description Data Erin rce(s) Supporting Document(s) ID Date Data Source [id number] 10/23/2019 11:08:11 AM EDT [facility] Measurements & CalculationsHeight: 71 inches (5 ft. 11 in.) 180.34 cm Weight: 203 pounds 92.27 kg Body Mass Index (BMI): 28.42BMI Interpretation: OverweightBody Surface Area (BSA): 2.12Weight Management Education Done (Nutrition/Physical Activity)Vital SignsTemperature: 97.3FPulse Rate: 90 beats/minuteRespiratory Rate: 16 respirations/minuteBlood Pressure: 112/75 O2 Saturation: 95% Vital Signs performed by: Mayra Sheldon MA, October 23, 2019 11:16 AMInitial Intake Information From: patientRoom #: 14Infectious Disease / Travel ScreeningRecent travel for you or any close contacts? NoHave you had any close contact with anyone diagnosed with or under investigation for COVID-19 (coronavirus)? NoFever? NoRespiratory symptoms: cough, cold, congestion, shortness of breath, difficulty breathing? NoLoss of smell? NoLoss of taste? NoSmoking, Tobacco, Vaping or Smoke Exposure StatusSmoke Status: former smokerTobacco Use: NoDo you vape? NoHealthcare HistorySince your last office visit...Have you [facility]: [facility]Have you been to an emergency room (ER) or urgent care clinic? Yes - [facility] Have you seen another healthcare provider? Yes - rheum, oncology, orthoHave you seen a dentist? NoIntake performed by: Mayra Sheldon MA, October 23, 2019 11:12 AMRate Your HealthIn general, would you say your health is? PoorPain AssessmentAre you currently having any pain which... You would like your provider to address? Yes Affects your activity level? YesDepression Screening - PHQ-2Over the last two weeks, have you... Had little interest or pleasure in doing things? Not at all Been feeling down, depressed, or hopeless? Not at all PHQ-2 Score: 0Anxiety Screening - PORTIA-2Over the last two weeks, have you been... Feeling nervous, anxious, or on edge? Not at all Unable to stop or control worrying? Not at all PORTIA-2 Score: 0Pain AssessmentPain ScaleNumeric Rating Scale: 9 / 10Location: left foot Duration: chronicFrequency: DailyCharacter/Quality: aching, stabbing, throbbing and pressureIs the pain radiating? NoScreening, Brief Intervention, & Referral to Treatment (SBIRT)Pre-Screening Questions How many times have you have 5 or more drinks in a day? 0How many times have you used an illegal drug or used a prescription medication for a non-medical reason? 365Performed by: Mayra Sheldon MA, October 23, 2019 11:16 AMPatient History Medical History:JIARA and psoriatic arthrtisSubstance Abuse-MarijuanaSurgical History:Left TH replacement 2007right hand tendon rupture repair- 2015Family History:No known family historySocial/Personal History:Smoking History:Patient has never smoked. Chief Complaintleft foot and ankle pain History of Present Illness (HPI)Was seen in the ER for the foot and ankle pain. Seeing Ortho for this.Records unavailable today from Ortho. Per patient they have recommended Tylenol over the counter.He has been on prednisone through his non destructive evaluation specialist for a long time and the recent Xrays showed osteoporosis. He thinks it has been 5 or six years since the non destructive evaluation specialist last did a bone density. I have encouraged him to ask about this at their upcoming follow up.He has been on Celebrex prescribed by Dr. Parkinson and he does not think this has helped.HPI performed by: Mulugeta Ritter MD, October 23, 2019 1:40 PMTransitions of Care InboundProblem ReviewProblem List was reviewed and/or updated during this visit.Medication Reconciliation & ReviewMedication List was reviewed and/or updated during this visit, including review of any xrdo-lgo-rtyeuax medications, herbal therapies, and/or supplements.Allergy ReviewAllergy List was reviewed and/or updated during this visit.Adult Preventive CareProvider Calculated and Reviewed all Clinical Protocols for patient today. Labs/Meds/Other Counseling-Nutrition and Physical Activity:BMI Interpretation: Overweight (10/23/2019) Counseling: Done (10/23/2019) Physical Activity: Done (10/23/2019)Review of Systems General: Denies dizziness, fatigue. Cardiovascular: Denies chest pain. Respiratory: Denies shortness of breath. Gastrointestinal: Denies nausea, vomiting, diarrhea, constipation, abdominal pain, blood in stool, black or tarry stools. Genitourinary: Denies pain with urination, urinary frequency, urinary urgency. Physical ExamGeneral Appearance: well nourished, well hydrated, no acute distressRespiratory, Auscultation: clear to auscultation bilaterally; no rales, rhonchi, or wheezesRespiratory, Effort: no intercostal retractions or use of accessory musclesCardiovascular, Auscultation: S1, S2 audible; no murmur, rub, or gallop; RRROrientation: oriented to time, place, and personMood & Affect: no depression, anxiety, or agitationJudgment & Insight: intactCare Management Plan Transitions of CareInboundRate Your HealthIn general, would you say your health is? PoorAssessment & Plan Problems:Assessed:Ankle pain (ICD-719.47) (BPA26-D08.579) Assessment: Instructions: Recheck as scheduled with Ortho.Discuss getting a repeat bone density with your non destructive evaluation specialist.See pain clinic as scheduled.Stop taking Celebrex. Not only is this not helping you with your pain but in combination with prednisone you are at risk of issues like bleeding stomach ulcers.Patient Instructions/Care Plan: Ankle pain: Recheck as scheduled with Ortho.Discuss getting a repeat bone density with your non destructive evaluation specialist.See pain clinic as scheduled.Stop taking Celebrex. Not only is this not helping you with your pain but in combination with prednisone you are at risk of issues like bleeding stomach ulcers. Plan developed in collaboration with patient and/or familyMedications:TALTZ 80 MG/ML SUBCUTANEOUS SOLUTION AUTO- INJECTORTRAMADOL HCL 50 MG ORAL TABLETONDANSETRON HCL 8 MG ORAL TABLETOMEPRAZOLE 20 MG ORAL CAPSULE DELAYED RELEASEB-12 1000 MCG ORAL TABLETCYCLOPHOSPHAMIDE 50 MG ORAL CAPSULEBACLOFEN 10 MG ORAL TABLETGABAPENTIN 600 MG ORAL TABLETIBUPROFEN 800 MG ORAL TABLETMedication Changes:Removed:CELECOXIB 200 MG ORAL CAPSULE-one cap po BID X 1day, then oe cap po QDAllergies:No Known Allergies (updated 09/07/2019) Orders:Adult - Ofc Vst, EST, Level III [CPT-92004] Name Value Range Interpretation Code Description Data Erin rce(s) Supporting Document(s) ID Date Data Source [id number] 09/27/2019 10:35:00 AM EDT [facility] Name Value Range Interpretation Code Description Data Erin rce(s) Supporting Document(s) HCT 34.2 % 42.0-52.0 L [facility] HGB 11.1 g/dL 13.5-17.5 L [facility] MCH 32.5 G/DL pg 32.0-36.5 N [facility] MCHC 37.8 PG % 27.0-33.0 H [facility] PLATELETS 294 10 10*3/mm3 150-450 N [facility] RBC 2.94 10 10*6/mm3 4.30-6.10 L [facility] RDW 15.5 % 11.5-14.5 H [facility] WBC TOTAL 6.9 4.0-10.0 N [facility] ID Date Data Source [id number] 09/22/2019 02:23:46 PM EDT [facility] Measurements & CalculationsHeight: 71 inches (5 ft. 11 in.) 180.34 cm Weight: 197 pounds 8 oz. 89.77 kg Body Mass Index (BMI): 27.65BMI Interpretation: OverweightBody Surface Area (BSA): 2.10Weight Management Education Done (Nutrition/Physical Activity)Vital SignsTemperature: 98.1FPulse Rate: 84 beats/minuteRespiratory Rate: 14 respirations/minuteBlood Pressure: 123/87 Vital Signs performed by: Ame Whittington, September 22, 2019 2:27 PMVital Signs performed by: Ame Whittington, September 22, 2019 2:27 PMInitial Intake Infectious Disease / Travel ScreeningRecent travel for you or any close contacts? NoHave you had any close contact with anyone diagnosed with or under investigation for COVID-19 (coronavirus)? NoFever? NoRespiratory symptoms: cough, cold, congestion, shortness of breath, difficulty breathing? NoLoss of smell? NoLoss of taste? NoSmoking, Tobacco, Vaping or Smoke Exposure StatusSmoke Status: former smokerT obacco Use: NoDo you vape? NoPassive Smoke Exposure: NoHealthcare HistorySince your last office visit...Have you been admitted to the hospital? NoHave you been to an emergency room (ER) or urgent care clinic? NoHave you seen another healthcare provider? Yes - rheum, oncologyHave you seen a dentist? NoRate Your HealthIn general, would you say your health is? PoorPain AssessmentAre you currently having any pain which... You would like your provider to address? No Affects your activity level? NoDepression Screening - PHQ-2Over the last two weeks, have you... Had little interest or pleasure in doing things? Not at all Been feeling down, depressed, or hopeless? Not at all PHQ-2 Score: 0Anxiety Screening - PORTIA-2Over the last two weeks, have you been... Feeling nervous, anxious, or on edge? Not at all Unable to stop or control worrying? Not at all PORTIA-2 Score: 0Food InsecurityWithin the past year...Did you worry whether your food would run out before you got money to buy more? NoWas there a time when the food you bought didn't last and you didn't have money to get more? NoScreening, Brief Intervention, & Referral to Treatment (SBIRT)Pre-Screening Questions How many times have you have 5 or more drinks in a day? 0How many times have you used an illegal drug or used a prescription medication for a non- medical reason? 365Performed by: Ame Whittington, September 22, 2019 2:29 PMPa tient History Medical History:JIARA and psoriatic arthrtisSubstance Abuse- MarijuanaSurgical History:Left TH replacement 2007right hand tendon rupture repair- 2015Family History:No known family historySocial/Personal History:Smoking History:Patient has never smoked. Chief Complaintfollow up labs and xraysHistory of Present Illness (HPI)patient is here for a follow up on labs and xrays. lump under left arm.Transitions of Care InboundProblem ReviewProblem List was reviewed and/or updated during this visit.Medication Reconciliation & ReviewMedication List was reviewed and/or updated during this visit, including review of any gifp-thb-cupfvnm medications, herbal therapies, and/or supplements.Allergy ReviewAllergy List was reviewed and/or updated during this visit.Adult Preventive CareProvider Calculated and Reviewed all Clinical Protocols for patient today. Labs/Meds/Other Counseling-Nutrition and Physical Activity:BMI Interpretation: Overweight (09/22/2019) Counseling: Done (09/22/2019) Physical Activity: Done (09/22/2019)Review of Systems General: Denies loss of appetite, chills, dizziness, fatigue, fever, continued fever, headache, feeling ill, sweats, night sweats, sleep disturbances, weight loss. Cardiovascular: Denies chest pain, palpitations, feeling faint, trouble breathing w/exertion, SOB upon lying down, SOB at night, peripheral edema, elevated blood pressure, decreased heart rate. Respiratory: Denies cough, difficulty breathing, shortness of breath, excessive sputum, coughing up blood, wheezing, chest pain. Musculoskeletal: Complains of back pain, leg pain. Skin: LEs duskyPhysical ExamGeneral Appearance: well nourished, well hydrated, no acute distressGait & Station: normalBack: 1st rib on leftUpper Extremity, Left: ankle swollen tender xray shows healing fx distal fibulaLower Extremity, Right: both LEs duskyOrientation: oriented to time, place, and personMood & Affect: no depression, anxiety, or agitationJudgment & Insight: intactCare Management Plan Transitions of CareInboundRate Your HealthIn general, would you say your health is? PoorAssessment & Plan Problems:Added: Nondisplaced trimalleolar fracture of left lower leg, subsequent encounter for closed fracture with delayed healing (ICD-824.6) (CZG36-G38.855G)Peripheral vascular disease, unspecified (ICD-443.9) (HKE79-A84.9)Medications:CELECOXIB 200 MG ORAL CAPSULETALTZ 80 MG/ML SUBCUTANEOUS SOLUTION AUTO-INJECTORTRAMADOL HCL 50 MG ORAL TABLETONDANSETRON HCL 8 MG ORAL TABLETOMEPRAZOLE 20 MG ORAL CAPSULE DELAYED RELEASEB-12 1000 MCG ORAL TABLETCYCLOPHOSPHAMIDE 50 MG ORAL CAPSULEBACLOFEN 10 MG ORAL TABLETGABAPENTIN 600 MG ORAL TABLETIBUPROFEN 800 MG ORAL TABLETAllergies:No Known Allergies (updated 09/07/2019) Orders:Adult - Ofc Vst, EST, Level III [CPT-28320] Orthopaedics Consult [CPT-54417] Duplex scan of lower extremity arteries; complete bilateral study [CPT-30378] Name Value Range Interpretation Code Description Data Erin rce(s) Supporting Document(s) ID Date Data Source [id number] 09/13/2019 02:19:15 PM EDT [facility] Labs In-House Blood TestsDate/Time Colle cted: September 13, 2019 2:19 PMTest Result Reference Range Normal ValueComments: blood draw done in offcie done in the right ac tolerated well Andres Harris ANNY, September 13, 2019 2:19 PMAssessment & Plan Orders:14366-Ssj Vst-Est Level I [CPT-62138] 47851 - Venipuncture [CPT-11377] Name Value Range Interpretation Code Description Data Erin rce(s) Supporting Document(s) ID Date Data Source [id number] 09/13/2019 10:15:00 AM EDT [facility] Name Value Range Interpretation Code Description Data Erin rce(s) Supporting Document(s) URIC ACID 4.8 mg/dL 3.5-7.2 N [facility] ID Date Data Source [id number] 09/13/2019 10:15:00 AM EDT [facility] Name Value Range Interpretation Code Description Data Erin rce(s) Supporting Document(s) ESR 56 mm/hr 0-15 H [facility] ID Date Data Source [id number] 09/07/2019 05:05:34 PM EDT [facility] Measurements & CalculationsHeight: 71 inches (5 ft. 11 in.) 180.34 cm Weight: 201 pounds 91.36 kg Body Mass Index (BMI): 28.14BMI Interpretation: OverweightBody Surface Area (BSA): 2.12Weight Management Education Done (Nutrition/Physical Activity)Vital SignsTemperature: 97.6FPulse Rate: 102 beats/minuteRespiratory Rate: 18 respirations/minuteBlood Pressure: 115/68 O2 Saturation: 98% Vital Signs performed by: Mayra Sheldon MA, September 07, 2019 5:07 PMInitial Intake Information From: patientRoom #: 14Infectious Disease / Travel ScreeningRecent travel for you or any close contacts? NoHave you had any close contact with anyone diagnosed with or under investigation for COVID-19 (coronavirus)? NoFever? NoRespiratory symptoms: cough, cold, congestion, shortness of breath, difficulty breathing? NoLoss of smell? NoLoss of taste? NoSmoking, Tobacco, Vaping or Smoke Exposure StatusSmoke Status: former smokerTobacco Use: NoDo you vape? NoHealthcare HistorySince your last office visit...Have you been admitted to the hospital? No [facility] reported today: 08/19/2019Have you been to an emergency room (ER) or urgent care clinic? No - [facility]cEmergency room (ER) or urgent care date reported today: 08/19/2019Have you seen another healthcare provider? Yes - rheum, oncology Have you seen a dentist? NoIntake performed by: Mayra Sheldon MA, September 07, 2019 5:08 PMRate Your HealthIn general, would you say your health is? PoorPain AssessmentAre you currently having any pain which... You would like your provider to address? Yes Affects your activity level? YesDepression Screening - PHQ-2Over the last two weeks, have you... Had little interest or pleasure in doing things? Not at all Been feeling down, depressed, or hopeless? Not at all PHQ-2 Score: 0Anxiety Screening - PORTIA-2Over the last two weeks, have you been... Feeling nervous, anxious, or on edge? Not at all Unable to stop or control worrying? Not at all PORTIA-2 Score: 0Pain AssessmentPain ScaleNumeric Rating Scale: 6 / 10Location: left elbow and left foot Duration: chronicFrequency: DailyCharacter/Quality: aching, stabbing, throbbing and pressureIs the pain radiating? NoScreening, Brief Intervention, & Referral to Treatment (SBIRT)Pre-Screening Questions How many times have you have 5 or more drinks in a day? 0How many times have you used an illegal drug or used a prescription medication for a non-medical reason? 365Performed by: Mayra Sheldon MA, September 07, 2019 5:11 PMPatient History Medical History:JIARA and psoriatic arthrtisSubstance Abuse-MarijuanaSurgical History:Left TH replacement 2007right hand tendon rupture repair- 2015Family History:No known family historySocial/Personal History:Smoking History:Patient has never smoked. Chief Complaintleft elbow and left foot pain History of Present Illness (HPI)I, Mallory Oliveira MA, am scribing for, and in the presence of, Gene Parkinson DO.39 y/o male pt comes in the office with c/o chronic left elbow and left foot pain. Pt states his left foot and ankle feels like cracking and popping. Large amount of arthritis in the left foot and ankle. Denies [facility] rheumatoid arthritis. Pt states in 1998 he was tested for rheumatoid arthritis. Pt states he has been taking Prednisone for 16 years.Pt c/o neck pain with pinched nerves with "pins and needles" down to the left elbow. Pt reports his depression worsening somedays. States he thinks of future and has a hard time "getting out of it". Transitions of Care InboundProblem ReviewProblem List was reviewed and/or updated during this visit.Medication Reconciliation & ReviewMedication List was reviewed and/or updated during this visit, including review of any moxv-wrr-saycslu medications, herbal therapies, and/or supplements.Allergy ReviewAllergy List was reviewed and/or updated during this visit. Patient has no known allergies.Adult Preventive CareProvider Calculated and Reviewed all Clinical Protocols for patient today. Labs/Meds/Other Counseling-Nutrition and Physical Activity:BMI Interpretation: Overweight (09/07/2019) Counseling: Done (09/07/2019) Physical Activity: Done (09/07/2019)Physical ExamGeneral Appearance: well nourished, well hydrated, no acute distressRespiratory, Auscultation: clear to auscultation bilaterally; no rales, rhonchi, or wheezesGait & Station: normalBack: midline, straight, no lordosis or kyphosis, no tenderness to palpationUpper Extremity, Left: tender over left lat epicondyleFoot Inspection, Right: left ankle swelling/tenderOrientation: oriented to time, place, and personMood & Affect: no depression, anxiety, or agitationJudgment & Insight: intactCare Management Plan Transitions of CareInboundRate Your HealthIn general, would you say your health is? PoorAssessment & Plan Assessment not SavedRheumatoid arthritis (IMU96-N45.9): check RA, ESR, ANAstart celebrexMedications:CELECOXIB 200 MG ORAL CAPSULETALTZ 80 MG/ML SUBCUTANEOUS SOLUTION AUTO-INJECTORTRAMADOL HCL 50 MG ORAL TABLETONDANSETRON HCL 8 MG ORAL TABLETOMEPRAZOLE 20 MG ORAL CAPSULE DELAYED RELEASEB-12 1000 MCG ORAL TABLETCYCLOPHOSPHAMIDE 50 MG ORAL CAPSULEBACLOFEN 10 MG ORAL TABLETGABAPENTIN 600 MG ORAL TABLETIBUPROFEN 800 MG ORAL TABLETMedication Changes:New Prescription:CELECOXIB 200 MG ORAL CAPSULE-one cap po BID X 1day, then oe cap po QD Qty: 30[Capsule] Refills: 3 Method: El ectronicRemoved:PREDNISONE 10 MG ORAL TABLET-One tablet BIDAllergies:No Known Allergies (updated 12/29/2017) Orders:Adult - Ofc Vst, EST, Level III [CPT- 73844] X-Ray - Ankle, 2 views [CPT-79604] RHEUMATOID FACTOR QUANTITATIVE [CPT- 05878] YUE Screen [CPT-00927] URIC ACID BLOOD [CPT-70570] ESR [CPT-40076] Medications:CELECOXIB 200 MG ORAL CAPSULE (CELECOXIB) one cap po BID X 1day, then oe cap po QD #30[Capsule] x 3 Route:ORAL Entered and Authorized by: Gene Parkinson DO Method used: Electronically to [facility]* (retail) [address] [place] [address] Note to Pharmacy: Route: ORAL; RxID: [id number] signed by Gene Parkinson DO on 09/07/2019 at 5:48 PM Name Value Range Interpretation Code Description Data Erin rce(s) Supporting Document(s) ID Date Data Source [id number] 08/31/2019 01:03:30 PM EDT [facility] Measurements & CalculationsHeight: 71 inches (5 ft. 11 in.) 180.34 cm Initial Intake Information From: patientVisit Type: phone encounterStart Time: 1:00 PMInfectious Disease / Travel ScreeningRecent travel for you or any close contacts? NoHave you had any close contact with anyone diagnosed with or under investigation for COVID-19 (coronavirus)? NoFever? NoRespiratory symptoms: cough, cold, congestion, shortness of breath, difficulty breathing? NoLoss of smell? NoLoss of taste? NoSmoking, Tobacco, Vaping or Smoke Exposure StatusSmoke Status: former smokerTobacco Use: NoDo you vape? NoPassive Smoke Exposure: NoHealthcare HistorySince your last office visit...Have you been admitted to the hospital? Yes - smcHospital admission date reported today: 08/19/2019Have you been to an emergency room (ER) or urgent care clinic? Yes - smcEmergency room (ER) or urgent care date reported today: 08/19/2019Have you seen another healthcare provider? Yes - rheum, oncology Have you seen a dentist? NoIntake performed by: Omkar Lora LPN, August 31, 2019 1:06 PMRate Your HealthIn general, would you say your health is? PoorPain AssessmentAre you currently having any pain which... You would like your provider to address? Yes Affects your activity level? YesDepression Screening - PHQ-2Over the last two weeks, have you... Had little interest or pleasure in doing things? Not at all Been feeling down, depressed, or hopeless? Not at all PHQ-2 Score: 0Anxiety Screening - PORTIA-2Over the last two weeks, have you been... Feeling nervous, anxious, or on edge? Not at all Unable to stop or control worrying? Not at all PORTIA-2 Score: 0Food InsecurityWithin the past year...Did you worry whether your food would run out before you got money to buy more? NoWas there a time when the food you bought didn't last and you didn't have money to get more? NoPain AssessmentPain ScaleNumeric Rating Scale: 7 / 10Location: lower extremitiesDuration: chronicFrequency: DailyCharacter/Quality: aching, stabbing, throbbing and pressureIs the pain radiating? NoScreening, Brief Intervention, & Referral to Treatment (SBIRT)Pre-Screening Questions How many times have you have 5 or more drinks in a day? 0How many times have you used an illegal drug or used a prescription medication for a non-medical reason? 0Performed by: Omkar Lora LPN, August 31, 2019 1:08 PMPatient History Medical History:JIARA and psoriatic arthrtisSubstance Abuse-MarijuanaSurgical History:Left TH replacement 2007right hand tendon rupture repair- 2015Family History:No known family historySocial/Personal History:Smoking History:Patient has never smoked. Chief Complainthosp dc phone History of Present Illness (HPI)39 yr old male PT on phone for a hosp DC F/U for NVD. Pt states he is currently having pain in DONAL lower extremities. Pt state he is taking all medications with no side effects. pt c/o left ankle/elbow/shoulder pain for a few days. Pt will make appt for this.Transitions of Care InboundProblem ReviewProblem List was reviewed and/or updated during this visit.Medication Reconciliation & ReviewMedication List was reviewed and/or updated during this visit, including review of any ykyz-eve-gfrbqbw medications, herbal therapies, and/or supplements.Allergy ReviewAllergy List was reviewed and/or updated during this visit.Provider Calculated and Reviewed all Clinical Protocols for patient today. Review of Systems Musculoskeletal: Complains of joint pain, muscle aches. Care Management Plan Transitions of CareInboundRate Your HealthIn general, would you say your health is? PoorAssessment & Plan Problems:Added: Ankle pain (ICD-719.47) (ICD10- M25.579)Assessment not SavedAnkle pain (EJE37-Y79.579): need to seeMedications:TALTZ 80 MG/ML SUBCUTANEOUS SOLUTION AUTO-INJECTORPREDNISONE 10 MG ORAL TABLETTRAMADOL HCL 50 MG ORAL TABLETONDANSETRON HCL 8 MG ORAL TABLETOMEPRAZOLE 20 MG ORAL CAPSULE DELAYED RELEASEB-12 1000 MCG ORAL TABLETCYCLOPHOSPHAMIDE 50 MG ORAL CAPSULEBACLOFEN 10 MG ORAL TABLETGABAPENTIN 600 MG ORAL TABLETIBUPROFEN 800 MG ORAL TABLETAllergies:No Known Allergies (updated 12/29/2017) Orders:Telephone E&M 5-10 min Medical Discussion [CPT- 33059] Vaccines Administered/Entered:Vaccination Group: InfluenzaHistorical Source: Historical information - from patientSeries: 2 NOT GIVENVaccination: Flucelvax Quadrivalent PF (4y+) AdultReason Not Given: Patient decisionEntered Date: 08/31/2019 12:00 AMComments: PT states he got it the pharmacyEntered by: Omkar Lora LPN Name Value Range Interpretation Code Description Data Erin rce(s) Supporting Document(s) ID Date Data Source [id number] 06/29/2019 05:31:20 PM EDT [facility] Name Value Range Interpretation Code Description Data Erin rce(s) Supporting Document(s) Progress Note [facility] KDLJIj1xVwLNShFo12/PTOllMXEym1BbFUtfBEn8XXotFVFzT5LeHGP5wX7xSZR4NPsIIrNaAwGqUyK5 [facility] [file] pMSgDw2GAsYnCzQGVzIlZQ9VHEt= ID Date Data Source [id number] 06/29/2019 05:31:15 PM EDT [facility] Name Value Range Interpretation Code Description Data Erin rce(s) Supporting Document(s) Progress Note [facility] MEZDNf6aDsGYKuUg72/VXIscSBIzx7ZxCVqrQUr2QCudBRTpG8YkDGN2vI5sLHO2JWuBWyCdDlCnQaM9 lbm [file] AgICAgICAgICAgICAgICAgICAgICAgICAgICAgICAgICAgICAgICAgICAgICAgICAgICAgICAgICAgIC AgICAgICAgICAgICAgICAgICAgICAgICAgICAgICAgICAgDQogICAgICAgICAgICAgICAgICAgICAgIC AgICAgICAgICAgICAgICAgICAgICAgICAgICAgICAg ICAgICAgICAgICAgICAgICAgICAgICAgICAgICAgICAgICAgICAgICAgICAgDQogICAgICAgICAgICAg ICAgICAgICAgICAgICAgICAgICAgICAgICAgICAgICAgICAgICAgICAgICAgICAgICAgICAgICAgICAg ICAgICAgICAgICAgICAgICAgICAgICAgICAgDQogIC AgICAgICAgICAgICAgICAgICAgICAgICAgICAgICAgICAgICAgICAgICAgICAgICAgICAgICAgICAgIC AgICAgICAgICAgICAgICAgICAgICAgICAgICAgICAgICAgICAgDQogICAgICAgICAgICAgICAgICAgIC AgICAgICAgICAgICAgICAgICAgICAgICAgICAgICAg ICAgICAgICAgICAgICAgICAgICAgICAgICAgICAgICAgICAgICAgICAgICAgICAgDQogICAgICAgICAg ICAgICAgICAgICAgICAgICAgICAgICAgICAgICAgICAgICAgICAgICAgICAgICAgICAgICAgICAgICAg ICAgICAgICAgICAgICAgICAgICAgICAgICAgICAgDQ ogICAgICAgICAgICAgICAgICAgICAgICAgICAgICAgICAgICAgICAgICAgICAgICAgICAgICAgICAgIC AgICAgICAgICAgICAgICAgICAgICAgICAgICAgICAgICAgICAgICAgDQogICAgICAgICAgICAgICAgIC AgICAgICAgICAgICAgICAgICAgICAgICAgICAgICAg ICAgICAgICAgICAgICAgICAgICAgICAgICAgICAgICAgICAgICAgICAgICAgICAgICAgDQogICAgICAg ICAgICAgICAgICAgICAgICAgICAgICAgICAgICAgICAgICAgICAgICAgICAgICAgICAgICAgICAgICAg ICAgICAgICAgICAgICAgICAgICAgICAgICAgICAgIC AgDQogICAgICAgICAgICAgICAgICAgICAgICAgICAgICAgICAgICAgICAgICAgICAgICAgICAgICAgIC IfBXNtWFEzWPOlHXSsLJPmOHXeCVQwXAIkYRIjPRFcIGAeNODgZCSdSCXiZYw6C3drAFFvTUKcFI0aBS d3Jz8+XSyZMtAqFMZ1sePuqV4MWD2gu9ZjHXzlWOYl e7ZdLFu9NA0TWBMvXNesPO0DJAofou2CSMYvVNSplSLPz0hpYzOhKSX8GYOyAoqwVM8QPJCxY3feocMm KPFlCJQFHOrzCVAZIRadAZQPZTTsUUPlIbLhQkKbTYEoMMYoAMFHKP2HOfVrV6AwkK91JSQCMn7+DQpl liXnLviQJpG5RHXtv0CyVEe8BU2OVZPfRlemw9IdBi DsQJXJYOgeTC7LLSZ8OEN1UOHtTg5FVVSuD485fpIzPE2VPl8UKbXkQK4rku2RHvJdZLWaPpxTWpi0KJ ljQZ4WhNOzGLkCfl5unhXudtWUx3HwnvFinMTFFLJfmIGlKZklirHRfTZftmO1NG1tCO3IZfWbUYOhTw 9kSj6xVPShYZFoIzVvWKHUQI1WVFAcCGApcNSuRZYy RWIFGU6AZBloZBL4PIFylwWvyVSlMTrsCL3ODPVhhyHyFlReQBCWCFk+Zs8DAR6hm4KxUMdoMwPyER2g gu2SCDvEFwGdU7S8wOOxE1Q6UAhtLu6VOJNlNTVeMmIhSPGASBaxJD5FVU6odzO4AY4IqOPmFZLmXBCk bOEpCPl7K66gcCOxGNbeXW0JJCB+Anel+Zq6CSICoQI HdGBFbOnMlUJWQDdLhD4YrS6AYm9LqI8LjIV05zPhgotDeGRsvSC5UYA7tAFYdTHTUZU2IuLSfrY0lne KbSBWlSHQREnWrS60evEXoAZZkGIY3OXQwUl0ROWHzV2QbkuGsiIwxilLxBXUxOOUCUA2UCJnburPmsW CdzFpvRV83zBjoNT2PUn4TSmYvCQ3wcd8UuVObIw6T WFWdST9LLIIvITHmGLXuYJQ0DWTnSlAyBEdqJVZxPZTxHGG4EOTlMXMnPL2LDyRlITIeNyZyAcVjBCJe GBIqus8IPILeBTEpZsj8TPOqQOGbVCSjJEkzKYTfEQIzZWW0CKSeBFSkXP5QIhQvUPLvSGR8MfLjGOVz SMZiaq5XFOMmNNXpYOC5SKYlOGSnXVLrTZraCJUaRF Y7QFS9QXUnQSZxCG6CFpLxYKEoPRK6TjIzSMCcJNGzsz5KGPSfGVLiPZY7GjUoYLLqBVUlTLwrTEQwKK D0Fda5UFIcJYZtJA9LZkKqYMNiVSMaVpDxEDNgJWLhji3JTXEaONDrWfFfSXJvKJMoVNFtVMruPWPaSF X3KKM1VMLvVWTkOP8ZXbUuVQRgIGenIHUuPENeRYVz zj6WOSUxXOYxIHMqGkKfPASfXOAiAViqMNUdMMQ0WGQdWDZtNYLyVB5GUgVbBTSaAKb1SQMuUZPvFBRm sk8LRVJrLTGtKXJaIQMhUNEiVGRtFHisDWQwRQL6UyazRCLeRYUzJA3DOlXhDXLtThL0QJZbMDQsFOJq ul7RSBRvXFRyBXw6HOMaVZXdVXPhMBwcVOUjJVIdZX XuXYXqNQHlSN0XTsWrLLFpSgP1LbSzMRYiWDMwzc6PIDSfNGCfHes7OdCwFMSdOYUdNDqgAVPaQHPkIB y5LPPwIOBxJE6VOzQnDZRnKsJqLLNuJCDbQZNujm3XOMBqLITzUuN3CaPmKBKiIZAbDMwiKHAbCIK0VK P9SMOtUWIsTS4WXvQyFIDgEjM3QDhpKYIyEXAcfl6J HWXpNWHwEEe7QHAoNALnJFEbVIbmMBMnQXT0OvOzJSRxDHGnHU3JTaJaZYOoQpM2FfOkOHKfGCSydp8P OZEdGCOaXpL6QUTkKRXnQJYkTNslWBXjWOC9BJWmOXQmEZAbGF9KMqKbVYDtGljySDJrZDBgYPMkjg7P APDhFJJcJFE7XwTjFHBpDQHnQZmsWKKwWIC7AwTxBF MrQDNmRH2CEnTkNKtbMRFHEys3LKzgH8g7WNNfBQ6JI7Yfp0BjCrsmEKWKRPqoYL3gokMcPIPpMq4HJ6 vATpabKGTcEoRjU1Y0BiDnRvf7HGOjHzc7GgH4NqowIxC4Of3lYFYaVbYhMKA0HFlqREWkNPzqJZDcHl w0XrGiWXFrQLouZqMxVE5DCw5VBiU4KBR5lHHiNi5FFug5UaSNFrYsTG5WMAs= ID Date Data Source [id number] 04/26/2019 02:01:29 PM [facility] Measurements & CalculationsHeight: 71 inches (5 ft. 11 in.) 180.34 cm Weight: 208 pounds 94.55 kg Body Mass Index (BMI): 29.11BMI Interpretation: OverweightBody Surface Area (BSA): 2.15Vital SignsPulse Rate: 93 beats/minuteRespiratory Rate: 16 respirations/minuteBlood Pressure: 110/76 right arm sitting automaticO2 Saturation: 98% room airVital Signs performed by: Suzanne Cabral MA, April 26, 2019 2:12 PMInitial Intake Information from: patientRoom #: 15Infectious Disease- Travel Have you or your sexual partner travelled outside of the country recently? NoSmoking, Tobacco or Smoke Exposure StatusSmoke Status: former smokerTobacco Use: NoPassive Smoke Exposure: NoHealthcare HistorySince your last office visit...Have you been admitted to the hospital? No - d/c 12/19/17Have you been to an emergency room (ER) or urgent care clinic? Yes - Cellulitis Emergency room (ER) or urgent care date reported today: 04/17/2019Have you seen another healthcare provider? Yes - rheum, oncologyHave you seen a dentist? NoIntake performed by: Suzanne Cabral MA, April 26, 2019 2:06 PMRate Your HealthIn general, would you say your health is? FairPain AssessmentAre you currently having any pain which... You would like your provider to address? Yes Affects your activity level? YesDepression Screening - PHQ-2Over the last two weeks, have you... Had little interest or pleasure in doing things? Not at all Been feeling down, depressed, or hopeless? Not at all PHQ-2 Score: 0Anxiety Screening - PORTIA-2Over the last two weeks, have you been... Feeling nervous, anxious, or on edge? Not at all Unable to stop or control worrying? Not at all PORTIA-2 Score: 0Pain AssessmentPain ScaleNumeric Rating Scale: 5 / 10Location: all overDuration: chronicFrequency: DailyCharacter/Quality: achingScreening, Brief Intervention, & Referral to Treatment (SBIRT)Pre-Screening Questions How many times have you have 5 or more drinks in a day? 0How many times have you used an illegal drug or used a prescription medication for a non-medical reason? 0Performed by: Suzanne Cabral MA, April 26, 2019 2:07 PMPatient History Medical History:JIARA and psoriatic arthrtisSubstance Abuse-MarijuanaSurgical History:Left TH replacement 2007right hand tendon rupture repair- 2015Family History:No known family historySocial/Personal History:Smoking History:Patient has never smoked. Smoking Status: former smokerChief Complaintfollow-up visitHistory of Present Illness (HPI)Left leg pain from hip down to foot for a while. Was recently evaluated in ER for possible cellulitis and while he was not treated for cellulitis he was diagnosed with severe anemia and given transfusion. Was seen the day after by his Heme/Onc and they have apparently ordered an MRI that has been performed. The MRI results are unavailable on chart today. He also sees a pain specialist. His non destructive evaluation specialist is in the process of switching him from Methotrexate to cy clophosphamide. His last set of LFTs was elevated. Denies fever or chills.HPI performed by: Mulugeta Ritter MD, April 26, 2019 2:23 PMTransitions of Care InboundProvider Calculated and Reviewed all Clinical Protocols for patient today. Physical ExamGeneral Appearance: well nourished, well hydrated, no acute distressRespiratory, Auscultation: clear to auscultation bilaterally; no rales, rhonchi, or wheezesRespiratory, Effort: no intercostal retractions or use of accessory musclesCardiovascular, Auscultation: S1, S2 audible; no murmur, rub, or gallop; RRRPeripheral Circulation: Left foot with mild edema and erythema. Better than it has been per patient.Orientation: oriented to time, place, and personMood & Affect: no depression, anxiety, or agitationJudgment & Insight: intactCare Management Plan Transitions of CareInboundRate Your HealthIn general, would you say your health is? FairAssessment & Plan Problems:Added: Pain in left lower limb (ICD-729.5) (OBY18-Z36.605) Assessment: Instructions: No clear cause. 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 Possibly muscular, possibly radiculopathy, possibly due to his existing autoimmune disease.Awaiting results of MRI.I am reassured by the fact this does not seem to be cellulitis.I will see him in 3 months and in the meantime he should follow up with Rheuatology, Pain Clinic and Heme/Onc as scheduled. Plan developed in collaboration with patient and/or familyMedication Changes:Added: CYCLOPHOSP HAMIDE 50 MG ORAL CAPSULE-once dailyJADENU 360 MG ORAL TABLET-4 tabs dailyRemoved:METHOTREXATE SODIUM (PF) SOLUTION-10 mg inj once a week, ENBREL 50 MG/ML SUBCUTANEOUS SOLUTION PREFILLED SYRINGE-per rheum, ONDANSETRON HCL 8 MG ORAL TABLET-q6h PRN, PROCHLORPERAZINE MALEATE 10 MG ORAL TABLET-q8h PRNOrders:Adult - Ofc Vst, EST, Level III [CPT-33000] Name Value Range Interpretation Code Description Data Erin rce(s) Supporting Document(s) ID Date Data Source [id number] 02/23/2019 04:15:56 PM EST [facility] Name Value Range Interpretation Code Description Data Erin rce(s) Supporting Document(s) Progress Note [facility] SUQXXm8lIbZTAjYv17/EIFclXTDcy0SyEUerHCq6MCqyLEXiF0KrFFA4dE3gRXH4OWzQDhPoVBggNZPf lbm [file] 0bVFBDSl9+FQcalXMkpCjuXUQZTtM6WRJ1JBwgXYOLVo4H Procedure Social History Code Duration Value Status Description Data Source(s ) Alcohol intake 03/20/2020 12:00:00 AM EST Current non-d bernarda of alcohol (finding) completed Current non-drinker of alcohol (finding) [facility] Tobacco use and exposure 03/20/2020 12:00:00 AM EST Never used co mpleted Never used [facility] Cigarette pack-years 03/20/2020 12:00:00 AM EST UNK completed [facility] Cigarettes smoked current (pack per day) - Reported 03/20/20 12:00:00 AM EST UNK completed [facility] Smoking 03/20/2020 12:00:00 AM EST Former smoker completed Former smoker [facility] Alcohol intake 02/23/2019 12:00:00 AM EST Current non-d bernarda of alcohol (finding) completed Current non-drinker of alcohol (finding) [facility] Cigarette pack-years 02/23/2019 12:00:00 AM EST UNK completed [facility] Cigarettes smoked current (pack per day) - Reported 02/24/20 19 12:00:00 AM EST UNK completed [facility] Smoking 02/23/2019 12:00:00 AM EST Former smoker completed Former smoker [facility] Vital Signs ID Date Data Source UNK Name Value Range Interpretation Code Description Data Source(s) Systolic blood pressure 119 mm[Hg] 119 mm[Hg] A THENA ([facility]) Body height 71 [in_i] 71 [in_i] CHITRA ([facility]) Diastolic blood pressure 71 mm[Hg] 71 mm[Hg] CHITRA ([facility]) Body height 71 [in_i] 71 [in_i] CHITRA ([facility]) Body height 71 [in_i] 71 [in_i] CHITRA ([facility]) Body height 71 [in_i] 71 [in_i] CHITRA ([facility]) Body height 71 [in_i] 71 [in_i] CHITRA ([facility]) Body weight 3248 [oz_av] 3248 [oz_av] CHITRA ([facility]) Systolic blood pressure 112 mm[Hg] 112 mm[Hg] [facility] Body height 71 [in_i] 71 [in_i] CHITRA ([facility]) Diastolic blood pressure 75 mm[Hg] 75 mm[Hg] CHITRA ([facility]) Body weight 3160 [oz_av] 3160 [oz_av] CHITRA ([facility]) Systolic blood pressure 123 mm[Hg] 123 mm[Hg] A THENA ([facility]) Body height 71 [in_i] 71 [in_i] CHITRA ([facility]) Diastolic blood pressure 87 mm[Hg] 87 mm[Hg] CHITRA ([facility]) Body weight 3216 [oz_av] 3216 [oz_av] CHITRA ([facility]) Systolic blood pressure 115 mm[Hg] 115 mm[Hg] A THENA ([facility]) Body height 71 [in_i] 71 [in_i] CHITRA ([facility]) Diastolic blood pressure 68 mm[Hg] 68 mm[Hg] CHITRA ([facility]) Body height 71 [in_i] 71 [in_i] CHITRA ([facility]) Body weight 3328 [oz_av] 3328 [oz_av] CHITRA ([facility]) Systolic blood pressure 110 mm[Hg] 110 mm[Hg] A THENA ([facility]) Body height 71 [in_i] 71 [in_i] HCITRA ([facility]) Diastolic blood pressure 76 mm[Hg] 76 mm[Hg] CHITRA ([facility]) Body weight 198 [lb_av] 198 [lb_av] CHITRA ([facility]) Systolic blood pressure 130 mm[Hg] 130 mm[Hg] A THENA ([facility]) Body mass index (BMI) [Ratio] 27.6 kg/m2 27.6 k g/m2 CHITRA ([facility]) Body height 71 [in_i] 71 [in_i] CHITRA ([facility]) Diastolic blood pressure 79 mm[Hg] 79 mm[Hg] CHITRA ([facility]) Body weight 198 [lb_av] 198 [lb_av] CHITRA ([facility]) Systolic blood pressure 130 mm[Hg] 130 mm[Hg] A THENA ([facility]) Body mass index (BMI) [Ratio] 27.6 kg/m2 27.6 k g/m2 CHITRA ([facility]) Body height 71 [in_i] 71 [in_i] CHITRA ([facility]) Diastolic blood pressure 79 mm[Hg] 79 mm[Hg] CHITRA ([facility]) Body weight 198 [lb_av] 198 [lb_av] CHITRA ([facility]) Systolic blood pressure 130 mm[Hg] 130 mm[Hg] A THENA ([facility]) Body mass index (BMI) [Ratio] 27.6 kg/m2 27.6 k g/m2 CHITRA ([facility]) Body height 71 [in_i] 71 [in_i] CHITRA ([facility]) Diastolic blood pressure 79 mm[Hg] 79 mm[Hg] CHITRA ([facility]) Body weight 198 [lb_av] 198 [lb_av] CHITRA ([facility]) Systolic blood pressure 130 mm[Hg] 130 mm[Hg] A THENA ([facility]) Body mass index (BMI) [Ratio] 27.6 kg/m2 27.6 k g/m2 CHITRA ([facility]) Body height 71 [in_i] 71 [in_i] CHITRA ([facility]) Diastolic blood pressure 79 mm[Hg] 79 mm[Hg] CHITRA ([facility]) Body weight 198 [lb_av] 198 [lb_av] CHITRA ([facility]) Systolic blood pressure 130 mm[Hg] 130 mm[Hg] A THENA ([facility]) Body mass index (BMI) [Ratio] 27.6 kg/m2 27.6 k g/m2 CHITRA ([facility]) Body height 71 [in_i] 71 [in_i] CHITRA ([facility]) Diastolic blood pressure 79 mm[Hg] 79 mm[Hg] CHITRA ([facility]) Body weight 198 [lb_av] 198 [lb_av] CHITRA ([facility]) Systolic blood pressure 130 mm[Hg] 130 mm[Hg] A THENA ([facility]) Body mass index (BMI) [Ratio] 27.6 kg/m2 27.6 k g/m2 CHITRA ([facility]) Body height 71 [in_i] 71 [in_i] CHITRA ([facility]) Diastolic blood pressure 79 mm[Hg] 79 mm[Hg] CHITRA ([facility]) Body weight 198 [lb_av] 198 [lb_av] CHITRA ([facility]) Systolic blood pressure 130 mm[Hg] 130 mm[Hg] A THENA ([facility]) Body mass index (BMI) [Ratio] 27.6 kg/m2 27.6 k g/m2 CHITRA ([facility]) Body height 71 [in_i] 71 [in_i] CHITRA ([facility]) Diastolic blood pressure 79 mm[Hg] 79 mm[Hg] CHITRA ([facility]) Body weight 198 [lb_av] 198 [lb_av] CHITRA ([facility]) Systolic blood pressure 126 mm[Hg] 126 mm[Hg] A THENA ([facility]) Body mass index (BMI) [Ratio] 27.6 kg/m2 27.6 k g/m2 CHITRA ([facility]) Body height 71 [in_i] 71 [in_i] CHITRA ([facility]) Diastolic blood pressure 79 mm[Hg] 79 mm[Hg] CHITRA ([facility]) Body weight 198 [lb_av] 198 [lb_av] CHITRA ([facility]) Systolic blood pressure 126 mm[Hg] 126 mm[Hg] A THENA ([facility]) Body mass index (BMI) [Ratio] 27.6 kg/m2 27.6 k g/m2 CHITRA ([facility]) Body height 71 [in_i] 71 [in_i] CHITRA ([facility]) Diastolic blood pressure 79 mm[Hg] 79 mm[Hg] CHITRA ([facility]) Body weight 198 [lb_av] 198 [lb_av] CHITRA ([facility]) Systolic blood pressure 126 mm[Hg] 126 mm[Hg] A THENA ([facility]) Body mass index (BMI) [Ratio] 27.6 kg/m2 27.6 k g/m2 CHITRA ([facility]) Body height 71 [in_i] 71 [in_i] CHITRA ([facility]) Diastolic blood pressure 79 mm[Hg] 79 mm[Hg] CHITRA ([facility]) Body weight 198 [lb_av] 198 [lb_av] CHITRA ([facility]) Systolic blood pressure 126 mm[Hg] 126 mm[Hg] A THENA ([facility]) Body mass index (BMI) [Ratio] 27.6 kg/m2 27.6 k g/m2 CHITRA ([facility]) Body height 71 [in_i] 71 [in_i] CHITRA ([facility]) Diastolic blood pressure 79 mm[Hg] 79 mm[Hg] CHITRA ([facility]) Body weight 198 [lb_av] 198 [lb_av] CHITRA ([facility]) Systolic blood pressure 126 mm[Hg] 126 mm[Hg] A THENA ([facility]) Body mass index (BMI) [Ratio] 27.6 kg/m2 27.6 k g/m2 CHITRA ([facility]) Body height 71 [in_i] 71 [in_i] CHITRA ([facility]) Diastolic blood pressure 79 mm[Hg] 79 mm[Hg] CHITRA ([facility]) Body weight 198 [lb_av] 198 [lb_av] CHITRA ([facility]) Systolic blood pressure 126 mm[Hg] 126 mm[Hg] A THENA ([facility]) Body mass index (BMI) [Ratio] 27.6 kg/m2 27.6 k g/m2 CHITRA ([facility]) Body height 71 [in_i] 71 [in_i] CHITRA ([facility]) Diastolic blood pressure 79 mm[Hg] 79 mm[Hg] CHITRA ([facility]) Body weight 198 [lb_av] 198 [lb_av] CHITRA ([facility]) Systolic blood pressure 126 mm[Hg] 126 mm[Hg] A THENA ([facility]) Body mass index (BMI) [Ratio] 27.6 kg/m2 27.6 k g/m2 CHITRA ([facility]) Body height 71 [in_i] 71 [in_i] CHITRA ([facility]) Diastolic blood pressure 79 mm[Hg] 79 mm[Hg] CHITRA ([facility]) Body weight 198 [lb_av] 198 [lb_av] CHITRA ([facility]) Systolic blood pressure 126 mm[Hg] 126 mm[Hg] A THENA ([facility]) Body mass index (BMI) [Ratio] 27.6 kg/m2 27.6 k g/m2 CHITRA ([facility]) Body height 71 [in_i] 71 [in_i] CHITRA ([facility]) Diastolic blood pressure 79 mm[Hg] 79 mm[Hg] CHITRA ([facility]) ID Date Data Source [id number] 04/04/2020 12:37:45 PM [facility] Name Value Range Interpretation Code Description Data Source(s) WEIGHT RECORDED 193 lb 193 lb [facility] Body height Measured 71 in 71 in [facility] ID Date Data Source [id number] 03/11/2020 04:20:24 PM [facility] Name Value Range Interpretation Code Description Data Source(s) Body height Measured 70.98 in 70.98 in [facility] ID Date Data Source [id number] 02/23/2019 04:15:56 PM [facility] Name Value Range Interpretation Code Description Data Source(s) WEIGHT RECORDED 195.2 lb 195.2 lb [facility] ID Date Data Source [id number] 02/28/2019 02:31:17 PM [facility] Name Value Range Interpretation Code Description Data Source(s) WEIGHT RECORDED 204 lb 204 lb [facility] Body height Measured 70.98 in 70.98 in [facility] Patient Treatment Plan of Care Planned Activity Planned Date Details Description Data Source (s) Prednisone 10 MG Oral Tablet 03/11/2020 12:00:00 AM [facility] Cyclophosphamide 50 MG Oral Capsule 02/23/2020 12:00:00 AM [facility] Prednisone 5 MG Oral Tablet 02/23/2020 12:00:00 AM [facility] Baclofen 10 MG Oral Tablet 02/19/2020 12:00:00 AM [facility] tramadol hydrochloride 50 MG Oral Tablet 02/19/2020 12:00:00 AM [facility] Taltz 80 MG/ML Subcutaneous Solution Auto-injector (ix ekizumab) 01/23/2020 12:00:00 AM [facility] Calcium Carbonate 1250 MG / Cholecalcife rol 200 UNT Oral Tablet [Os-Richelle 500 with D] 01/03/2020 12:00:00 AM [facility] Alendronic acid 70 MG Oral Tablet 01/03/2020 12:00:00 AM [facility] Ixekizumab 80 MG/ML Subcutaneous Solution Auto-injecto r 06/29/2019 12:00:00 AM [facility] deferasirox 2.5 MG/ML Oral Suspension 12/23/2018 12:00:00 AM [facility] deferasirox 5 MG/ML Oral Suspension 12/23/2018 12:00:00 AM [facility] Ibuprofen 600 MG Oral Tablet 08/04/2018 12:00:00 AM [facility] Calcium Carbonate 1250 MG / Cholecalciferol 200 UNT Or al Tablet 04/11/2018 12:00:00 AM [facility] Alendronic acid 70 MG Oral Tablet 04/11/2018 12:00:00 AM [facility] Alendronic acid 70 MG Oral Tablet [facility] Ibuprofen 200 MG Oral Tablet [facility] amoxicillin/clavulanate potassium 875-125 mg tabs CHITRA ([facility]) Amoxicillin 875 MG / Clavulanate 125 MG Oral Tablet CHITRA ([facility]) Alendronic acid 70 MG Oral Tablet CHITRA ([facility]) albuterol sulfate HFA 90 mcg/actuation a erosol inhaler INHALE TWO PUFFS BY MOUTH FOUR TIMES DAILY NEEDED ATHEN A ([facility]) albuterol sulfate hfa 108 (90 base) mcg/act aers CHITRA ([facility]) acyclovir 400 mg tabs CHITRA ([facility]) Acyclovir 400 MG Oral Tablet CHITRA ([facility]) Doxycycline Monohydrate 100 MG Oral Capsule CHITRA ([facility]) doxycycline monohydrate 100 mg caps CHITRA ([facility]) doxycycline hyclate 100 MG Oral Capsule CHITRA ([facility]) doxycycline hyclate 100 mg caps CHITRA ([facility]) Cephalexin 500 MG Oral Capsule CHITRA ([facility]) cephalexin 500 mg caps ATHEN A ([facility]) cefuroxime axetil 500 mg tabs CHITRA ([facility]) baclofen 10 mg tabs CHITRA ( [facility]) amoxicillin/clavulanate potassium 875-125 mg tabs CHITRA ([facility]) Amoxicillin 875 MG / Clavulanate 125 MG Oral Tablet CHITRA ([facility]) acyclovir 400 mg tabs CHITRA ([facility]) omeprazole 20 mg cpdr CHITRA ([facility]) mupirocin 2 % oint CHITRA ([facility]) ibuprofen 800 mg tabs CHITRA ([facility]) gabapentin 600 mg tabs ATHEN A ([facility]) gabapentin 300 MG Oral Capsule CHITRA ([facility]) Doxycycline Monohydrate 100 MG Oral Capsule CHITRA ([facility]) doxycycline monohydrate 100 mg caps CHITRA ([facility]) doxycycline hyclate 100 MG Oral Capsule CHITRA ([facility]) doxycycline hyclate 100 mg caps CHITRA ([facility]) Cephalexin 500 MG Oral Capsule CHITRA ([facility]) cephalexin 500 mg caps ATHEN A ([facility]) cefuroxime axetil 500 mg tabs CHITRA ([facility]) baclofen 10 mg tabs CHITRA ( [facility]) amoxicillin/clavulanate potassium 875-125 mg tabs CHITRA ([facility]) Amoxicillin 875 MG / Clavulanate 125 MG Oral Tablet CHITRA ([facility]) acyclovir 400 mg tabs CHITRA ([facility]) omeprazole 20 mg cpdr CHITRA ([facility]) mupirocin 2 % oint CHITRA ([facility]) ibuprofen 800 mg tabs CHITRA ([facility]) gabapentin 600 mg tabs ATHEN A ([facility]) gabapentin 300 MG Oral Capsule CHITRA ([facility]) tramadol hcl 50 mg tabs ATH JAVIER ([facility]) taltz 80 mg/ml soaj CHITRA ( [facility]) taltz 80 mg/ml soaj CHITRA ([facility]) Sulfamethoxazole 800 MG / Trimethoprim 160 MG Oral Tablet CHITRA ([facility]) prochlorperazine maleate 10 mg tabs CHITRA ([facility]) Prochlorperazine 10 MG Oral Tablet CHITRA ([facility]) prednisone 20 mg tabs CHITRA ([facility]) Prednisone 20 MG Oral Tablet CHITRA ([facility]) prednisone 10 mg tabs CHITRA ([facility]) Prednisone 10 MG Oral Tablet CHITRA ([facility]) prednisone 5 mg tabs CHITRA ([facility]) prednisone 10 mg tabs ATHEN A ([facility]) potassium chloride er 20 meq tbcr CHITRA ([facility]) Potassium Chloride 20 MEQ Extended Release Oral Tablet CHITRA ([facility]) Calcium Carbonate 1250 MG / Cholecalciferol 200 UNT Oral Tablet CHITRA ([facility]) Ondansetron 8 MG Oral Tablet CHITRA ([facility]) Ondansetron 4 MG Disintegrating Oral Tablet CHITRA ([facility]) omeprazole 20 mg cpdr CHITRA ([facility]) Omeprazole 20 MG Delayed Release Oral Capsule CHITRA ([facility]) omeprazole 20 mg cpdr ATHEN A ([facility]) mupirocin 2 % oint CHITRA ([facility]) 0.2 ML Methotrexate 50 MG/ML Auto-Injector CHITRA ([facility]) jadenu 360 mg tabs CHITRA ([facility]) celecoxib 200 mg caps ATHEN A ([facility]) cefuroxime axetil 500 mg tabs CHITRA ([facility]) Cefuroxime 500 MG Oral Tablet CHITRA ([facility]) baclofen 10 mg tabs CHITRA ( [facility]) baclofen 10 mg tabs CHITRA ([facility]) omeprazole 20 mg cpdr CHITRA ([facility]) mupirocin 2 % [facility] ibuprofen 800 mg tabs CHITRA ([facility]) gabapentin 600 mg tabs ATHEN A ([facility]) gabapentin 300 MG Oral Capsule CHITRA ([facility]) Doxycycline Monohydrate 100 MG Oral Capsule CHITRA ([facility]) doxycycline monohydrate 100 mg caps HCITRA ([facility]) doxycycline hyclate 100 MG Oral Capsule CHITRA ([facility]) doxycycline hyclate 100 mg caps CHITRA ([facility]) cephalexin 500 mg caps ATHEN A ([facility]) cefuroxime axetil 500 mg tabs CHITRA ([facility]) baclofen 10 mg tabs CHITRA ( [facility]) amoxicillin/clavulanate potassium 875-125 mg tabs CHITRA ([facility]) Amoxicillin 875 MG / Clavulanate 125 MG Oral Tablet CHITRA ([facility]) acyclovir 400 mg tabs CHITRA ([facility]) omeprazole 20 mg cpdr CHITRA ([facility]) mupirocin 2 % oint CHITRA ([facility]) ibuprofen 800 mg tabs CHITRA ([facility]) gabapentin 600 mg tabs ATHEN A ([facility]) gabapentin 300 MG Oral Capsule CHITRA ([facility]) ibuprofen 800 mg tabs CHITRA ([facility]) Ibuprofen 800 MG Oral Tablet CHITRA ([facility]) Ibuprofen 600 MG Oral Tablet CHITRA ([facility]) gabapentin 600 mg tabs ATHEN A ([facility]) gabapentin 300 MG Oral Capsule CHITRA ([facility]) gabapentin 600 mg tabs ATHE NA ([facility]) ferrous sulfate 325 MG Oral Tablet CHITRA ([facility]) ferrous fumarate 200 mg (65 mg iron)-vit C 25 mg tablet,extend release Take 1 tablet every day by oral route. CHITRA ([facility]) enbrel sureclick 50 mg/ml soaj CHITRA ([facility]) 0.98 ML Etanercept 50 MG/ML Auto-Injector [Enbrel] CHITRA ([facility]) Doxycycline Monohydrate 100 MG Oral Capsule CHITRA ([facility]) doxycycline monohydrate 100 mg caps CHITRA ([facility]) doxycycline hyclate 100 MG Oral Capsule CHITRA ([facility]) doxycycline hyclate 100 mg caps CHITRA ([facility]) deferasirox 500 mg tbso ATHE NA ([facility]) deferasirox 360 MG Oral Tablet CHITRA ([facility]) deferasirox 250 mg tbso ATHE NA ([facility]) deferasirox 360 mg tabs ATH JAVIER ([facility]) Cyclophosphamide 50 MG Oral Capsule CHITRA ([facility]) cyclophosphamide 50 mg caps CHITRA ([facility]) Cephalexin 500 MG Oral Capsule CHITRA ([facility]) cephalexin 500 mg caps ATHEN A ([facility]) celecoxib 200 MG Oral Capsule CHITRA ([facility]) Doxycycline Monohydrate 100 MG Oral Capsule CHITRA ([facility]) doxycycline monohydrate 100 mg caps CHITRA ([facility]) doxycycline hyclate 100 MG Oral Capsule CHITRA ([facility]) doxycycline hyclate 100 mg caps CHITRA ([facility]) Cephalexin 500 MG Oral Capsule CHITRA ([facility]) cephalexin 500 mg caps ATHEN A ([facility]) cefuroxime axetil 500 mg tabs CHITRA ([facility]) baclofen 10 mg tabs CHITRA ( [facility]) amoxicillin/clavulanate potassium 875-125 mg tabs CHITRA ([facility]) Amoxicillin 875 MG / Clavulanate 125 MG Oral Tablet CHITRA ([facility]) acyclovir 400 mg tabs CHITRA ([facility]) omeprazole 20 mg cpdr CHITRA ([facility]) mupirocin 2 % oint CHITRA ([facility]) ibuprofen 800 mg tabs CHITRA ([facility]) Doxycycline Monohydrate 100 MG Oral Capsule CHITRA ([facility]) doxycycline monohydrate 100 mg caps CHITRA ([facility]) doxycycline hyclate 100 MG Oral Capsule CHITRA ([facility]) doxycycline hyclate 100 mg caps CHITRA ([facility]) Cephalexin 500 MG Oral Capsule CHITRA ([facility]) cephalexin 500 mg caps ATHEN A ([facility]) cefuroxime axetil 500 mg tabs CHITRA ([facility]) baclofen 10 mg tabs CHITRA ( [facility]) amoxicillin/clavulanate potassium 875-125 mg tabs CHITRA ([facility]) Amoxicillin 875 MG / Clavulanate 125 MG Oral Tablet CHITRA ([facility]) acyclovir 400 mg tabs CHITRA ([facility]) Taltz Autoinjector 80 mg/mL subcutaneous CHITRA ([facility])
[2020-04-23] MEDS ORDERED: ALEN70TA82 PO (17:27)
[2020-04-23] MEDS ORDERED: ACET650T61 PO (17:27)
[2020-04-23] MEDS ORDERED: PRED10TA2 PO (17:27)
--- NOTE | 2020-04-23 17:28 | REP ---
INDICATION: SOB on exertion. COMPARISON: Comparison chest x-ray February 23, 2020.. TECHNIQUE: Sitting AP portable chest radiograph. FINDINGS: Monitoring electrodes are seen. The lungs are well inflated and clear. The pleural angles are sharp. Heart size is unchanged and not enlarged. Pulmonary vasculature is not increased. No acute bony abnormality is seen. IMPRESSION: No active cardiopulmonary disease. <Electronically signed by Leo Mancia > 04/23/20 1756
[2020-04-23 17:31] LABS: ANISOCYTOSIS 2+; ATYPICAL LYMPH 6 % (0-5); BASOPHILS 1 % (0-1); HYPOCHROMASIA 1+; LYMPHOCYTES 40 % (16-44); MONOCYTES 6 % (0-5); NEUTROPHILS 45 % (28-66); PLATELET ESTIMATE NORMAL (NORMAL)
[2020-04-23 18:05] LABS: RSV AMPLIFICATION NEGATIVE (NEGATIVE)
[2020-04-23] MEDS ORDERED: NS 1,000 ML IV SCH (18:06)
[2020-04-23] MEDS ORDERED: MOM 30ML SUSPENSION UDC PO PRN (18:15)
[2020-04-23] MEDS ORDERED: GABAPENTIN 300 MG CAP PO PRN (18:15)
[2020-04-23] MEDS ORDERED: BACLOFEN 10 MG TAB PO PRN (18:15)
[2020-04-23] MEDS ORDERED: ACETAMINOPHEN 650MG ER TAB (TYLENOL ARTHRITIS) PO PRN (18:15)
[2020-04-23] MEDS ORDERED: ONDANSETRON 4 MG TAB PO PRN (18:15)
[2020-04-23] MEDS ORDERED: traMADol 50 MG TAB PO PRN (18:15)
--- OUTSIDE RECORDS SUMMARY | 2020-04-23 18:21 | CCD ---
Author Author [facility] Organization [facility] Address Unknown Phone Unavailable Support Name Relationship Address Phone Mulugeta Ritter MD Next Of Kin [address] [place] [address] Jennifer Castellanos Next Of Kin Unknown Unavailable Shea Dillon Next Of Kin [address] [place] [address] Gene Parkinson DO Next Of Kin [address] [place] [address] TWIN [place] [address] TATIANA CASTELLANOS Next Of Kin Unknown Nimo Higgins MD Next Of Kin [address] [place] [address] MARIAH GREGORY Next Of Kin [address] [place] [address] MARIA[place] [address] JOSE BURTON Next Of Kin Unknown Key Pendleton Next Of Kin [address] [place] [phone] Summer Almazan Next Of Kin [address] [place], [place] [phone] [place] [address] KARSTEN GUIDRY Next Of Kin Unknown Unavailable UE Next Of Kin Unknown Unavailable Yoli CASTELLANOS Next Of Kin [address] [place] [address] JOURDAN [place] [address] DISABLED Next Of Kin Unknown Unavailable JENNIFER CASTELLANOS Next Of Kin [address] [place] [address] Jennifer Castellanos ECON Unknown [place] [address] Unavailable [place] [address] [phone] Care Team Providers Care Shochet Name Role Phone Shea Nowak [employer] Unavailable Unavailable VANVALBoyd FOURNIER MD Unavailable Unavailable [...] Barratt PA Unavailable Unavailable Veda Nowak Shea [employer]-BC Unavailable Unavailable Nowak, F Shea [employer]BC Unavailable Unavailable Nowak, F Shea [employer]-BC Unavailable Unavailable Nowak, F Shea [employer]BC Unavailable Unavailable Nowak, F Shea [employer]BC Unavailable Unavailable Nowak, F Shea [employer]-BC Unavailable Unavailable Nowak, F Shea [employer]BC Unavailable Unavailable Nowak, F Shea [employer]-BC Unavailable Unavailable Nowak, F Shea [employer]-BC Unavailable Unavailable Nowak, F Shea [employer]-BC Unavailable Unavailable Nowak, F Shea [employer]-BC Unavailable Unavailable Nowak, F Shea [employer]-BC Unavailable Unavailable Nowak, F Shea [employer]-BC Unavailable Unavailable Nowak, F Shea [employer]-BC Unavailable Unavailable Nowak, F Shea [employer]-BC Unavailable Unavailable Nowak, F Shea [employer]-BC Unavailable Unavailable Nowak, F Hsea [employer]-BC Unavailable Unavailable Nowak, F Shea [employer]-BC Unavailable Unavailable Nowak, F Shea [employer]-BC Unavailable Unavailable Nowak, F Shea [employer]-BC Unavailable Unavailable Nowak, F Shea [employer]-BC Unavailable Unavailable Nowak, F Shea [employer]-BC Unavailable Unavailable Fish, [facility], PA-C Unavailable Unavailabl e Fish, [facility], PA-C Unavailable Unavailabl e Fish, [facility], PA-C Unavailable Unavailabl e Fish, [facility], PA-C Unavailable Unavailabl e Fish, [facility], PA-C Unavailable Unavailabl e Fish, [facility], PA-C Unavailable Unavailabl e Fish, [facility], PA-C Unavailable Unavailabl e Fish, [facility], PA-C Unavailable Unavailabl e Fish, [facility], PA-C Unavailable Unavailabl e Fish, [facility], PA-C Unavailable Unavailabl e Fish, [facility], PA-C Unavailable Unavailabl e Fish, [facility], PA-C Unavailable Unavailabl e Fish, [facility], PA-C Unavailable Unavailabl e Fish, [facility], PA-C Unavailable Unavailabl e Fish, [facility], PA-C Unavailable Unavailabl e Fish, [facility], PA-C Unavailable Unavailabl e Fish, [facility], PA-C Unavailable Unavailabl e Fish, [facility], PA-C Unavailable Unavailabl e Fish, [facility], PA-C Unavailable Unavailabl e Fish, [facility], PA-C Unavailable Unavailabl e Fish, [facility], PA-C Unavailable Unavailabl e Fish, [facility], PA-C Unavailable Unavailabl e Fish, [facility], PA-C Unavailable Unavailabl e Fish, [facility], PA-C Unavailable Unavailabl e Fish, [facility], PA-C Unavailable Unavailabl e Fish, [facility], PA-C Unavailable Unavailabl e Fish, [facility], PA-C Unavailable Unavailabl e Fish, [facility], PA-C Unavailable Unavailabl e Fish, [facility], PA-C Unavailable Unavailabl e Fish, [facility], PA-C Unavailable Unavailabl e Fish, [facility], PA-C Unavailable Unavailabl e Fish, [facility], PA-C Unavailable Unavailabl e Fish, [facility], PA-C Unavailable Unavailabl e Chin, [...] Ritter MD Unavailable Unavailable Jumalon, M Camila [employer] Unavailable Unavailable Jumalon, M Camila [employer] Unavailable Unavailable Jumalon, M Camila [employer] Unavailable Unavailable Jumalon, M Camila [employer] Unavailable Unavailable Jumalon, M Camila [employer] Unavailable Unavailable Jumalon, M Camila [employer] Unavailable Unavailable Jumalon, M Camila [employer] Unavailable Unavailable Jumalon, M Camila [employer] Unavailable Unavailable Jumalon, M Camila [employer] Unavailable Unavailable Jumalon, M Camila [employer] Unavailable Unavailable Jumalon, M Camila [employer] Unavailable Unavailable Jumalon, M Camila [employer] Unavailable Unavailable Jumalon, M Camila [employer] Unavailable Unavailable Jumalon, M Camila [employer] Unavailable Unavailable Jumalon, M Camila [employer] Unavailable Unavailable Jumalon, M Camila [employer] Unavailable Unavailable Jumalon, M Camila [employer] Unavailable Unavailable Jumalon, M Camila [employer] Unavailable Unavailable Jumalon, M Camila [employer] Unavailable Unavailable Jumalon, M Camila [employer] Unavailable Unavailable Jumalon, M Camila [employer] Unavailable Unavailable Jumalon, M Camila [employer] Unavailable Unavailable Jumalon, M Camila [employer] Unavailable Unavailable Jumalon, M Camila [employer] Unavailable Unavailable Jumalon, M Cmaila [employer] Unavailable Unavailable Jumalon, M Camila [employer] Unavailable Unavailable Jumalon, M Camila [employer] Unavailable Unavailable Jumalon, M Camila [employer] Unavailable Unavailable FishTomasa MPAS, PA-C Unavailable Unavailabl e Fish, Tomasa Gómez MPAS, PA-C Unavailable Unavailabl e Fish, Tomasa Gómez MPAS, PA-C Unavailable Unavailabl e Fish, Tomasa Gómez MPAS, PA-C Unavailable Unavailabl e Fish, [facility], PA-C Unavailable Unavailabl e Fish, [facility], PA-C Unavailable Unavailabl e Fish, [facility], PA-C Unavailable Unavailabl e Fish, [facility], PA-C Unavailable Unavailabl e Fish, [facility], PA-C Unavailable Unavailabl e Fish, [facility], PA-C Unavailable Unavailabl e Fish, [facility], PA-C Unavailable Unavailabl e Fish, [facility], PA-C Unavailable Unavailabl e Fish, [facility], PA-C Unavailable Unavailabl e Fish, [facility], PA-C Unavailable Unavailabl e Fish, [facility], PA-C Unavailable Unavailabl e Fish, [facility], PA-C Unavailable Unavailabl e Fish, [facility], PA-C Unavailable Unavailabl e Fish, [facility], PA-C Unavailable Unavailabl e Fish, [facility], PA-C Unavailable Unavailabl e Fish, [facility], PA-C Unavailable Unavailabl e Fish, [facility], PA-C Unavailable Unavailabl e Fish, [facility], PA-C Unavailable Unavailabl e Fish, [facility], PA-C Unavailable Unavailabl e Fish, [facility], PA-C Unavailable Unavailabl e Fish, [facility], PA-C Unavailable Unavailabl e Fish, [facility], PA-C Unavailable Unavailabl e Fish, [facility], PA-C Unavailable Unavailabl e Fish, [facility], PA-C Unavailable Unavailabl e Fish, [facility], PA-C Unavailable Unavailabl e Fish, [facility], PA-C Unavailable Unavailabl e Fish, [facility], PA-C Unavailable Unavailabl e Fish, [facility], PA-C Unavailable Unavailabl e Fish, [facility], PA-C Unavailable Unavailabl e Kaci [...] Unavailable Unavailable Terra HIGGINS MD Unavailable Unavailable eTrra HIGGINS MD Unavailable Unavailable Terra HIGGINS MD [...] Unavailable YONY, B SERGIO VELOZ Unavailable Unavailable YNOY, B SERGIO VELOZ Unavailable Unavailable YONY, B [...] is protected by Article 27-F of the [facility] Public Health law. If you continue you may have access to information: Regarding HIV / AIDS; Provided by facilities licensed or operated by the [facility] Office of Mental Health; or Provided by the [facility] Office for People With Developmental Disabilities. If such information is present, then the following [facility] mandated warning applies: This information has [...] law may result in a fine or fci sentence or both. A general authorization for the release of medical or other information is NOT sufficient authorization for further disc losure. Allergies and Adverse Reactions Type Description Substance Reaction Status Data Source(s ) Drug Class NO KNOWN ALLERGIES NO KNOWN ALLERGIES [facility] Allergy to substance Allergy to substance Allergy to substance [facility] ([facility]) Family History Family Member Name Family Member Gender Family Member Status Date o f Status Description Data Source(s) Unknown Unknown Problem [facility] ([facility]) Encounters Encounter Providers Location Date Indications Data Source(s ) Outpatient 05/30/2020 12:00:00 AM [facility] Outpatient Attender: HECTOR VILLAGOMEZ 05/23/2020 12:00:00 AM [facility] Outpatient Attender: MULUGETA CASON MD [id number] 03/20/2020 12:00:00 AM EST Rheumatoid arthritis, unspecified [facility]spital Rheumatoid arthritis, unspecified Outpatient Attender: HECTOR VILLAGOMEZ [id number] 03/07/2020 12:00:00 AM EST - 03/07/2020 02:33:21 PM EST Arthropathic psoriasis, unspecified [facility] Arthropathic psoriasis, unspecified Outpatient 03/07/2020 12:00:00 AM [facility] Camila Bueno Abhi, PARTS TECHNICIAN: [address], [place] [address], Ph. Attender: Camila Moe [facility] - [facility] - Main Office 02/19/2020 12:00:00 AM EST ATHE NA ([facility]) Kaci Kathryn, [facility]: [address] [place] [phone], Ph. Attender: Kaci Peralta [place] - [facility] Medical 01/29/2020 12:00:00 AM EDT [facility] ([facility]) Outpatient Attender: Mulugeta Ritter MD 01/22/2020 02:57:00 PM EDT [facility] Outpatient Attender: Mulugeta Ritter MD 01/16/2020 11:45:00 AM EDT [facility] Outpatient Attender: Mulugeta Ritter MD 01/15/2020 08:51:03 AM EDT [facility] Outpatient Attender: Mulugeta Ritter MD 01/15/2020 08:51:01 AM EDT [facility] Outpatient Attender: Mulugeta Ritter MD 01/11/2020 11:19:01 AM EDT [facility] Outpatient Attender: Mulugeta Ritter MD 01/10/2020 01:34:00 PM EDT [facility] Outpatient Attender: Mulugeta Ritter MD 01/09/2020 01:57:00 PM EDT [facility] Outpatient Attender: Mulugeta Ritter MD 01/09/2020 12:51:01 PM EDT [facility] Outpatient Attender: Kaveh GUDINO Physical Therapy 11:15:00 AM EDT [facility] ([facility]) Outpatient Attender: HECTOR VILLAGOMEZ [id number] 01/03/2020 12:00:00 AM EDT - 01/03/2020 04:13:52 PM EDT Arthropathic psoriasis, unspecified [facility] Arthropathic psoriasis, unspecified Outpatient Attender: Mulugeta Ritter MD 01/02/2020 12:49:00 PM EDT [facility] Outpatient Attender: Mulugeta Ritter MD 01/01/2020 02:55:00 PM EDT [facility] Outpatient Attender: Mulugeta Ritter MD FP 01/01/2020 12:14:03 PM EDT [facility] Outpatient Attender: Mulugeta Ritter MD 01/01/2020 12:14:01 PM EDT [facility] Outpatient Attender: RAFAT ALBERTS MD Physical Therapy 09:00:00 AM EDT [facility] ([facility]) Outpatient Attender: Mulugeta Ritter MD 12/29/2019 04:27:02 PM EDT [facility] Outpatient Attender: Mulugeta Ritter MD 12/29/2019 04:27:02 PM EDT [facility] Camila Moe, PARTS TECHNICIAN: [address], [place] [address], Ph. Attender: Camila Moe [facility] 12/27/2019 12:00:00 AM EDT ATHE NA ([facility]) Camila Moe, PARTS TECHNICIAN: [address], [facility] [place] [place] [address], Ph. Attender: Camila Moe [facility] 12/27/2019 12:00:00 AM EDT ATHE NA ([facility]) Outpatient Attender: Mulugeta Ritter MD 12/26/2019 09:13:00 AM EDT [facility] Outpatient Attender: AL MELENDEZ 12/25/2019 10:38:01 AM EDT [facility] Outpatient Attender: Shea SANDOVAL 12/22/2019 09: 54:00 AM EDT [facility] Outpatient Attender: Shea SANDOVAL 12/18/2019 09: 01:05 AM EDT [facility] Outpatient Attender: AL MELENDEZ 12/18/2019 09:01:03 AM EDT [facility] Outpatient Attender: Shea SANDOVAL 12/12/2019 02: 24:01 PM EDT [facility] Outpatient Attender: RAFAT ALBERTS MD Physical Therapy 08:30:00 AM EDT [facility] ([facility]) Outpatient Attender: Shea SANDOVAL 12/08/2019 03: 52:01 PM EDT [facility] Outpatient Attender: Shea MELENDEZ-BC 12/08/2019 03: 18:05 PM EDT [facility] Outpatient Attender: [facility] 12/08/2019 01:41:00 PM EDT [facility] Outpatient Attender: AL MELENDEZ 11/30/2019 02:05:03 PM EDT [facility] Camila Moe, PARTS TECHNICIAN: [address], [place] [address], Ph. Attender: Camila Moe [facility] 11/21/2019 12:00:00 AM EDT ATHE NA ([facility]) Camila Moe, PARTS TECHNICIAN: [address], [facility] [place] [place] [address], Ph. Attender: Camila Moe [facility] 11/21/2019 12:00:00 AM EDT ATHE NA ([facility]) Camila Saavedra [facility], PARTS TECHNICIAN: [address], [facility] [place] [place] [address], Ph. Attender: Camila Moe [facility] 11/21/2019 12:00:00 AM EDT ATHE NA ([facility]) Outpatient Attender: HECTOR VILLAGOMEZ 11/16/2019 12:00:00 AM ED [facility] Outpatient 11/16/2019 12:00:[address] [facility] Outpatient Attender: JOSEFINA ANGLIN MDReferrer: Mulugeta flannery MD 11/12/2019 01:44:52 PM EDT [facility] Recurring Patient Referrer: Dalia BARTON PA-C 09/2019 03:01:22 PM EDT [facility] Outpatient Attender: Shea SANDOVAL 11/02/2019 04: 33:01 PM EDT [facility] Recurring Patient Referrer: Dalia BARTON PA-C 10/04 03:30:32 PM EDT [facility] Recurring Patient Referrer: Dalia BARTON PA-C 10/04 01:32:12 PM EDT [facility] Camila Moe, PARTS TECHNICIAN: [address], [place] [address], Ph. Attender: Camila Moe [facility] 10/24/2019 12:00:00 AM EDT ATHE NA ([facility]) Camila Moe, PARTS TECHNICIAN: [address], [place] [address], Ph. Attender: Camila Moe [facility] 10/24/2019 12:00:00 AM EDT ATHE NA ([facility]) Camila Moe, PARTS TECHNICIAN: [address], [place] [address], Ph. Attender: Camila Moe [facility] 10/24/2019 12:00:00 AM EDT ATHJami NA ([facility]) Camila Moe, PARTS TECHNICIAN: [address], [place] [address], Ph. Attender: Camila Halllorettakaitlin [facility] 10/24/2019 12:00:00 AM EDT ATHE NA ([facility]) [facility] 10/23/2019 01: 50:00 PM EDT [facility] Outpatient Attender: AL MELENDEZ 10/23/2019 10:44:01 AM EDT [facility] Outpatient Attender: RAFAT ALBERTS MD Physical Therapy 03:00:00 PM EDT [facility] ([facility]) Outpatient Attender: AL MELENDEZ FP 10/04/2019 08:53:00 AM EDT [facility] Outpatient Attender: Dalia BARTON PA-C Physical Therapy 09/29/2019 02:00:00 PM EDT [facility] ([facility]) Outpatient Attender: AL MELENDEZ FP 09/29/2019 11:58:02 AM EDT [facility] Outpatient Attender: Shea SANDOVAL FP 09/29/2019 11: 58:01 AM EDT [facility] Outpatient Attender: Shea SANDOVAL FP 09/29/2019 09: 38:03 AM EDT [facility] Outpatient Attender: AL MELENDEZ FP 09/28/2019 03:48:00 PM EDT [facility] Outpatient Referrer: MD HECTOR VILLAGOMEZ 09/28/2019 05:10:00 AM EDT [facility] Outpatient Attender: AL MELENDEZ FP 09/27/2019 01:01:00 PM EDT [facility] Outpatient Attender: AL MELENDEZ FP 09/26/2019 04:20:01 PM EDT [facility] Outpatient Attender: AL BARROSO 09/26/2019 03:24:01 PM EDT [facility] Outpatient Attender: AL BARROSO 09/22/2019 03:08:02 PM EDT [facility] Outpatient Attender: Shea SANDOVAL FP 09/22/2019 03: 08:01 PM EDT [facility] Outpatient Attender: AL BARROSO 09/22/2019 02:02:00 PM EDT [facility] Outpatient Attender: AL BARROSO 09/18/2019 12:48:01 PM EDT [facility] Outpatient Attender: Shea BARROSO 09/17/2019 02: 44:00 PM EDT [facility] Outpatient Attender: Shea SANDOVAL FP 09/14/2019 08: 54:03 AM EDT [facility] Outpatient Attender: AL BARROSO 09/14/2019 08:54:02 AM EDT [facility] Outpatient Attender: AL MELENDEZ FP 09/12/2019 01:55:00 PM EDT [facility] Outpatient Attender: AL MELENDEZ 09/11/2019 09:50:01 AM EDT [facility] Outpatient Attender: Shea Nowak [employer]- FP 09/07/2019 05: 49:02 PM EDT [facility] Outpatient Attender: AL MELENDEZ 09/07/2019 05:06:00 PM EDT [facility] Camila Moe, PARTS TECHNICIAN: [address], [place] [address], Ph. Attender: Camila Moe [facility] - [facility] 09/05/2019 12:00:00 AM EDT [facility] ([facility]) Camila Moe, PARTS TECHNICIAN: [address], [place] [address], Ph. Attender: Camila Moe [facility] - [facility] 09/05/2019 12:00:00 AM EDT [facility] ([facility]) Camila Moe, PARTS TECHNICIAN: [address], [place] [address], Ph. Attender: Camila Moe [facility] - [facility] 09/05/2019 12:00:00 AM EDT [facility] ([facility]) Camila Moe, PARTS TECHNICIAN: [address], [place] [address], Ph. Attender: Camila Moe [facility] - [facility] 09/05/2019 12:00:00 AM EDT [facility] ([facility]) Camila Moe, PARTS TECHNICIAN: [address], [place] [address], Ph. Attender: Camila Moe [facility] - [facility] 09/05/2019 12:00:00 AM EDT [facility] ([facility]) Outpatient Attender: AL Nowak [employer] FP 08/31/2019 01:30:00 PM EDT [facility] Outpatient Attender: AL MELENDEZ 08/31/2019 01:28:04 PM EDT [facility] Outpatient Attender: Shea MELENDEZ- FP 08/31/2019 01: 28:02 PM EDT [facility] Outpatient Attender: AL MELENDEZ 08/23/2019 10:03:01 AM EDT [facility] Outpatient Attender: DO Parkinson FP 08/22/2019 07:51:00 AM EDT [facility] Outpatient Attender: NIMO HIGGINS MD 08/02/2019 09:21:00 A M EDT [facility] Camila Moe, PARTS TECHNICIAN: [address], [place] [address], Ph. Attender: Camila Moe [facility] - [facility] 07/20/2019 12:00:00 AM EDT [facility] ([facility]) Camila Moe, PARTS TECHNICIAN: [address], [place] [address], Ph. Attender: Camila Moe [facility] - [facility] 07/20/2019 12:00:00 AM EDT [facility] ([facility]) Camila Moe, PARTS TECHNICIAN: [address], [place] [address], Ph. Attender: Camila Moe [facility] [place] - [facility] 07/20/2019 12:00:00 AM EDT [facility] ([facility]) Camila Moe, PARTS TECHNICIAN: [address], [place] [address], Ph. Attender: Camila Moe [employer] [place] - [facility] [place] - Main Office 07/20/2019 12:00:00 AM EDT [facility] ([facility]) Camila Moe, PARTS TECHNICIAN: [address], [place] [address], Ph. Attender: Camila Moe [employer] [place] - [facility] [place] - Main Office 07/20/2019 12:00:00 AM EDT [facility] ([facility]) Camila Moe, PARTS TECHNICIAN: [address], [place] [address], Ph. Attender: Camila [facility] Main Office 07/20/2019 12:00:00 AM EDT [facility] ([facility] [facility]) Outpatient Attender: HECTOR VILLAGOMEZ [id number] 06/29/2019 12:00:00 AM EDT Arthropathic psoriasis, unspecified [facility] Arthropathic psoriasis, unspecified Outpatient Attender: NIMO HIGGINS MD 05/22/2019 03:06:00 [facility] Outpatient Attender: NIMO HIGGINS MD 05/12/2019 06:20:02 [facility] Outpatient Attender: HECTOR VILLAGOMEZ 05/11/2019 12:00:00 AM [facility] Outpatient Attender: HECTOR VILLAGOMEZ 05/11/2019 12:00:00 AM [facility] Outpatient Referrer: MD HECTOR VILLAGOMEZ 05/10/2019 09:23:00 AM EST [facility] Outpatient Referrer: MD HECTOR VILLAGOMEZ 2019 07:58:00 PM EST [facility] [address], [facility] [address] 2019 12:00:00 AM EST eCW1 ([facility]) Outpatient Attender: NIMO HIGGINS MD 04/28/2019 09:28:55 [facility] Outpatient Referrer: MD HECTOR VILLAGOMEZ 04/27/2019 01:39:00 PM [facility] Imaging Outpatient 04/27/2019 12:00:00 AM [facility] Outpatient Attender: NIMO HIGGINS MD 04/26/2019 02:48:02 [facility] Outpatient Attender: NIMO HIGGINS MD 04/26/2019 02:48:01 [facility] Outpatient Attender: NIMO HIGGINS MD 04/26/2019 02:48:00 [facility] Outpatient Attender: NIMO HIGGINS MD 04/26/2019 01:48:01 [facility] Camila Moe, PARTS TECHNICIAN: [address], [place] [address], Ph. Attender: Camila Moe [facility] 04/25/2019 12:00:00 AM EST ATHE NA ([facility]) Camila Halllorettakaitlin, PARTS TECHNICIAN: [address], [place] [address], Ph. Attender: Camlia Moe [facility] 04/25/2019 12:00:00 AM EST ATHE NA ([facility]) Camila Ximena Moe, PARTS TECHNICIAN: [address], [place] [address], Ph. Attender: Camila Moe [facility] 04/25/2019 12:00:00 AM EST ATHE NA ([facility]) Camila Ximena Moe, PARTS TECHNICIAN: [address], [place] [address], Ph. Attender: Camila Moe [facility] 04/25/2019 12:00:00 AM EST ATHE NA ([facility]) Camila Moe, PARTS TECHNICIAN: [address], [place] [address], Ph. Attender: Camila Moe [facility] 04/25/2019 12:00:00 AM EST ATHE NA ([facility]) Camila Moe, PARTS TECHNICIAN: [address], [place] [address], Ph. Attender: Camila Moe [facility] 04/25/2019 12:00:00 AM EST ATHE NA ([facility]) Camila Moe, PARTS TECHNICIAN: [address], [place] [address], Ph. Attender: Camila Moe [facility] 04/25/2019 12:00:00 AM EST ATHE NA ([facility]) Outpatient Attender: Nick Thomas 04/19/2019 12:00:[address] [address] 04/17/2019 12:00:00 AM EST eCW1 ([facility]) Outpatient Attender: Nick Thomas 04/06/2019 12:00:00 AM [facility] Outpatient Attender: NIMO HIGGINS MD 03/24/2019 08:02:09 P M EST [facility] Camila Moe, PARTS TECHNICIAN: [address], [place] [address], Ph. Attender: Camila Moe [facility] 03/20/2019 12:00:00 AM EST ATHE NA ([facility]) Camila Moe, PARTS TECHNICIAN: [address], [place] [address], Ph. Attender: Camila Moe [facility] - [facility] 03/20/2019 12:00:00 AM EST ATHE NA ([facility]) Camila Moe, PARTS TECHNICIAN: [address], [place] [address], Ph. Attender: Camila Moe [facility] - [facility] 03/20/2019 12:00:00 AM EST ATHE NA ([facility]) Camila Moe, PARTS TECHNICIAN: [address], [place] [address], Ph. Attender: Camila Moe [facility] - [facility] 03/20/2019 12:00:00 AM EST ATHE NA ([facility]) Camila Moe, PARTS TECHNICIAN: [address], [place] [address], Ph. Attender: Camila Moe [facility] - [facility] 03/20/2019 12:00:00 AM EST ATHE NA ([facility]) Camila Moe, PARTS TECHNICIAN: [address], [place] [address], Ph. Attender: Camila Moe [facility] - [facility] 03/20/2019 12:00:00 AM EST ATHE NA ([facility]) Camila Moe, PARTS TECHNICIAN: [address], [place] [address], Ph. Attender: Camila Moe [facility] - [facility] 03/20/2019 12:00:00 AM EST ATHE NA ([facility]) Camilajami Moe, PARTS TECHNICIAN: [address], [address], [place] [address], Ph. Attender: Camila Moe [facility] - [facility] - Main Office 03/20/2019 12:00:00 AM EST ATHE NA ([facility]) Outpatient Referrer: MD HECTOR VILLAGOMEZ 03/19/2019 05:14:00 PM EST [facility] Outpatient Attender: SERGIO BHAKTA MD 03/17/2019 12:00:[address] 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 Gastro-esophageal reflux disease without esophagitis Medications Medication Brand Name Start Date Product Form Dose Route Admi nistrative Instructions Pharmacy Instructions Status Indications Reaction Description Data Source(s) Prednisone 10 MG Oral Tablet predniSONE 10 MG Oral Tab let (DELTASONE) predniSONE 10 MG Oral Tablet (DELTASONE) 03/11/2020 12:00:00 AM EST active TAKE ONE TABLET BY MOUTH ONCE DAILY [facility] Cyclophosphamide 50 MG Oral Capsule Cycl ophosphamide 50 MG Oral Capsule (CYTOXAN) Cyclophosphamide 50 MG Oral Capsule (CYTOXAN) 02/23/20 20 12:00:00 AM EST 50 mg Oral active Take 50 mg by shabbir th daily [facility] Prednisone 5 MG Oral Tablet predniSONE 5 MG Oral Table t (DELTASONE) predniSONE 5 MG Oral Tablet (DELTASONE) 02/23/2020 12:00:00 AM EST active TAKE ONE TABLET BY MOUTH TWICE DAILY [facility] tramadol hydrochloride 50 MG Oral Tablet traMADol HCl 50 MG Oral Tablet (ULTRAM) traMADol HCl 50 MG Oral Tablet (ULTRAM) 02/19/2020 12:00:00 AM EST aborted TAKE ONE TABLET TWICE DAILY N EEDED MAX DAILY DOSE TWO TABLETS [facility] Baclofen 10 MG Oral Tablet Baclofen 10 MG Oral Tablet (LIORESAL) Baclofen 10 MG Oral Tablet (LIORESAL) 02/19/2020 12:00:00 AM EST active TAKE ONE TABLET BY MOUTH TWICE DAILY NEEDED [facility] Taltz 80 MG/ML Subcutaneous Solution Auto-injector ([email or web address]) [id number] 01/23/2020 12:00:00 AM EDT active INJECT 1 SYRINGE INTO THE SKIN EVERY [address] [facility] Alendronic acid 70 MG Oral Tablet Alendr maikel Sodium 70 MG Oral Tablet (Fosamax) Alendronate Sodium 70 MG Oral Tablet (Fosamax) 01/03/2020 12:00: 00 AM EDT 70 mg Oral active Take 1 tablet by mouth e very 7 (seven) days [facility] Calcium Carbonate 1250 MG / Cholecalcife rol 200 UNT Oral Tablet [Os-Richelle 500 with D] Oscal 500/200 D-3 500-200 MG-UNIT Oral Tablet (calcium-vitamin D) Oscal 500/200 D-3 500-200 MG-UNIT Oral Tablet (calcium-vitamin D) 01/03/2020 12:00:00 AM EDT 1 {tbl} Oral active Take 1 tablet by mouth Two Times Daily [facility] Ixekizumab 80 MG/ML Subcutaneous Solution Auto-injector 1923 30 06/29/2019 12:00:00 AM EDT 80 mg Subcutaneous active Inject 80 mg into the skin every 28 (twenty-eight) days [facility] deferasirox 2.5 MG/ML Oral Suspension de ferasirox (EXJADE) 250 MG disintegrating tablet deferasirox (EXJADE) 250 MG disintegrating tablet 12/05 12:00:00 AM EDT aborted [facility] deferasirox 5 MG/ML Oral Suspension defe rasirox (EXJADE) 500 MG disintegrating tablet deferasirox (EXJADE) 500 MG disintegrating tablet 12/05 12:00:00 AM EDT aborted [facility] Ibuprofen 600 MG Oral Tablet ibuprofen (ADVIL,MOTRIN) 600 MG tablet ibuprofen (ADVIL,MOTRIN) 600 MG tablet 08/04/2018 12:00:00 AM EDT aborted TAKE ONE TABLET BY MOUTH THREE TIMES DAILY NEEDED [facility] Alendronic acid 70 MG Oral Tablet alendronate (FOSAMAX ) 70 MG tablet alendronate (FOSAMAX) 70 MG tablet 04/11/2018 12:00:00 AM EST 70 mg Oral active Take 1 tablet by mouth every 7 (seven) days [facility] Calcium Carbonate 1250 MG / Cholecalcife rol 200 UNT Oral Tablet calcium-vitamin D (OSCAL-500) 500-200 MG-UNIT per tablet calcium-vitamin D (OSCAL-500) 500-200 MG-UNIT per tablet 04/11/2018 12:00:00 AM EST 1 {tbl} Oral active Take 1 tablet by mouth Two Times Daily [facility] Doxycycline Monohydrate 100 MG Oral Caps ule doxycycline monohydrate 100 mg capsule doxycycline monohydrate 100 mg capsule completed doxycycline monohydrate 100 MG Oral Capsule CHITRA ([facility]) Alendronic acid 70 MG Oral Tablet alendronate (FOSAMAX ) 70 MG tablet alendronate (FOSAMAX) 70 MG tablet aborted alendronate 70 mg tablet [address] [facility] Ibuprofen 200 MG Oral Tablet ibuprofen (ADVIL,MOTRIN) 200 MG tablet ibuprofen (ADVIL,MOTRIN) 200 MG tablet 200 mg Oral aborted Take 200 mg by mouth every 6 (six) hours as needed for Pain [facility] amoxicillin/clavulanate potassium 875-125 mg tabs completed amoxicillin/clavulanate potassium 875-125 mg tabs CHITRA ([facility]) amoxicillin/clavulanate potassium 875-125 mg tabs completed amoxicillin/clavulanate potassium 875-125 mg tabs CHITRA ([facility]) Calcium Carbonate 1250 MG / Cholecalcife rol 200 UNT Oral Tablet [place] Calcium-Vitamin D3 500 mg (1,250 mg)-200 unit tablet TAKE ONE TABLET BY MOUTH TWICE DAILY [place] Calcium-Vitamin D3 500 mg ( 1,250 mg)-200 unit tablet TAKE ONE TABLET BY MOUTH TWICE DAILY c ompleted calcium carbonate 1250 MG / cholecalciferol 200 UNT Oral Tablet CHITRA ([facility]) ibuprofen 800 mg tabs completed ibuprofen 800 mg tabs CHITRA ([facility]) Ibuprofen 600 MG Oral Tablet ibuprofen 600 mg tablet ibuprofen 6 00 mg tablet completed ibuprofen 600 MG Oral Tablet CHITRA ([facility]) Cephalexin 500 MG Oral Capsule cephalexin 500 mg capsu le cephalexin 500 mg capsule completed Cephalexin 500 MG Oral Capsule CHITRA ([facility]) prednisone 10 mg tabs completed prednisone 10 mg tabs CHITRA ([facility]) Amoxicillin 875 MG / Clavulanate 125 MG Oral Tablet amoxicillin 875 mg-potassium clavulanate 125 mg tablet amoxicillin 875 mg-potassium clavulanate 125 mg tablet completed amoxicillin 875 MG / clavulanate 125 MG Oral Tablet CHITRA ([facility]) omeprazole 20 mg cpdr completed omeprazole 20 mg cpdr CHITRA ([facility]) ibuprofen 800 mg tabs completed ibuprofen 800 mg tabs CHITRA ([facility]) baclofen 10 mg tabs completed baclofen 10 mg tabs CHITRA ([facility]) cefuroxime axetil 500 mg tabs co mpleted cefuroxime axetil 500 mg tabs CHITRA ([facility]) Doxycycline Monohydrate 100 MG Oral Caps ule doxycycline monohydrate 100 mg capsule doxycycline monohydrate 100 mg capsule completed doxycycline monohydrate 100 MG Oral Capsule CHITRA ([facility]) Doxycycline Monohydrate 100 MG Oral Caps ule doxycycline monohydrate 100 mg capsule doxycycline monohydrate 100 mg capsule completed doxycycline monohydrate 100 MG Oral Capsule CHITRA ([facility]) Amoxicillin 875 MG / Clavulanate 125 MG Oral Tablet amoxicillin 875 mg-potassium clavulanate 125 mg tablet amoxicillin 875 mg-potassium clavulanate 125 mg tablet completed amoxicillin 875 MG / clavulanate 125 MG Oral Tablet CHITRA ([facility]) prednisone 10 mg tabs completed prednisone 10 mg tabs CHITRA ([facility]) omeprazole 20 mg cpdr completed omeprazole 20 mg cpdr CHITRA ([facility]) cephalexin 500 mg caps completed cephalexin 500 mg caps CHITRA ([facility]) acyclovir 400 mg tabs completed acyclovir 400 mg tabs CHITRA ([facility]) Doxycycline Monohydrate 100 MG Oral Caps ule doxycycline monohydrate 100 mg capsule doxycycline monohydrate 100 mg capsule completed Doxycycline Monohydrate 100 MG Oral Capsule CHITRA ([facility]) Cephalexin 500 MG Oral Capsule cephalexin 500 mg capsu le cephalexin 500 mg capsule completed cephalexin 500 MG Oral Capsule CHITRA ([facility]) Cephalexin 500 MG Oral Capsule cephalexin 500 mg capsu le cephalexin 500 mg capsule completed cephalexin 500 MG Oral Capsule CHITRA ([facility]) gabapentin 600 mg tabs completed gabapentin 600 mg tabs CHITRA ([facility]) doxycycline monohydrate 100 mg caps completed doxycycline monohydrate 100 mg caps CHITRA ([facility]) doxycycline monohydrate 100 mg caps completed doxycycline monohydrate 100 mg caps CHITRA ([facility]) albuterol sulfate hfa 108 (90 base) mcg/act aers completed albuterol sulfate hfa 108 (90 base) mcg/act aers CHITRA ([facility]) cephalexin 500 mg caps completed cephalexin 500 mg caps CHITRA ([facility]) omeprazole 20 mg cpdr completed omeprazole 20 mg cpdr CHITRA ([facility]) gabapentin 300 MG Oral Capsule gabapentin 300 mg capsu le gabapentin 300 mg capsule completed gabapentin 300 MG Oral Capsule CHITRA ([facility]) baclofen 10 mg tabs completed baclofen 10 mg tabs CHITRA ([facility]) omeprazole 20 mg cpdr completed omeprazole 20 mg cpdr CHITRA ([facility]) doxycycline hyclate 100 MG Oral Capsule doxycycline hy clate 100 mg capsule doxycycline hyclate 100 mg capsule com pleted doxycycline hyclate 100 MG Oral Capsule CHITRA ([facility]) cephalexin 500 mg caps completed cephalexin 500 mg caps CHITRA ([facility]) mupirocin 2 % oint completed m upirocin 2 % oint CHITRA ([facility]) Taltz Autoinjector 80 mg/mL subcutaneous [id number] completed 1 ML ixekizumab 80 MG/ML Auto-Injector [Taltz] CHITRA ([facility]) doxycycline hyclate 100 MG Oral Capsule doxycycline hy clate 100 mg capsule doxycycline hyclate 100 mg capsule com pleted doxycycline hyclate 100 MG Oral Capsule CHITRA ([facility]) Doxycycline Monohydrate 100 MG Oral Caps ule doxycycline monohydrate 100 mg capsule doxycycline monohydrate 100 mg capsule completed doxycycline monohydrate 100 MG Oral Capsule CHITRA ([facility]) doxycycline hyclate 100 MG Oral Capsule doxycycline hy clate 100 mg capsule doxycycline hyclate 100 mg capsule com pleted doxycycline hyclate 100 MG Oral Capsule CHITRA ([facility]) doxycycline hyclate 100 mg caps completed doxycycline hyclate 100 mg caps CHITRA ([facility]) baclofen 10 mg tabs completed baclofen 10 mg tabs CHITRA ([facility]) doxycycline hyclate 100 mg caps completed doxycycline hyclate 100 mg caps CHITRA ([facility]) gabapentin 600 mg tabs completed gabapentin 600 mg tabs CHITRA ([facility]) cefuroxime axetil 500 mg tabs co mpleted cefuroxime axetil 500 mg tabs CHITRA ([facility]) doxycycline monohydrate 100 mg caps completed doxycycline monohydrate 100 mg caps CHITRA ([facility]) ferrous fumarate 200 mg (65 mg iron)-vit C 25 mg tablet,extend release Take 1 tablet every day by oral route. [id number] 1 compl eted ferrous fumarate 200 mg (65 mg iron)-vit C 25 mg tablet,extend release CHITRA ([facility]) amoxicillin/clavulanate potassium 875-125 mg tabs completed amoxicillin/clavulanate potassium 875-125 mg tabs CHITRA ([facility]) acyclovir 400 mg tabs completed acyclovir 400 mg tabs CHITRA ([facility]) omeprazole 20 mg cpdr completed omeprazole 20 mg cpdr CHITRA ([facility]) Amoxicillin 875 MG / Clavulanate 125 MG Oral Tablet amoxicillin 875 mg-potassium clavulanate 125 mg tablet amoxicillin 875 mg-potassium clavulanate 125 mg tablet completed amoxici llin 875 MG / clavulanate 125 MG Oral Tablet CHITRA ([facility]) acyclovir 400 mg tabs completed acyclovir 400 mg tabs CHITRA ([facility]) 0.98 ML Etanercept 50 MG/ML Auto-Injecto r [Enbrel] Enbrel SureClick 50 mg/mL (1 mL) subcutaneous pen injector INJECT 1 PEN INTO THE SKIN EVERY 7 DAYS Enbrel SureClick 50 mg/mL (1 mL) subcutaneous pen injector INJECT 1 PEN INTO THE SKIN EVERY 7 DAYS completed 1 ML etanercept 50 MG/ML Auto-Injector [Enbrel] CHITRA ([facility]) deferasirox 250 mg tbso completed deferasirox 250 mg tbso CHITRA ([facility]) baclofen 10 mg tabs completed baclofen 10 mg tabs CHITRA ([facility]) cefuroxime axetil 500 mg tabs co mpleted cefuroxime axetil 500 mg tabs CHITRA ([facility]) tramadol hcl 50 mg tabs completed tramadol hcl 50 mg tabs CHITRA ([facility]) mupirocin 2 % oint completed m upirocin 2 % oint CHITRA ([facility]) deferasirox 500 mg tbso completed deferasirox 500 mg tbso CHITRA ([facility]) gabapentin 600 mg tabs completed gabapentin 600 mg tabs CHITRA ([facility]) doxycycline hyclate 100 MG Oral Capsule doxycycline hy clate 100 mg capsule doxycycline hyclate 100 mg capsule com pleted doxycycline hyclate 100 MG Oral Capsule CHITRA ([facility]) doxycycline hyclate 100 mg caps completed doxycycline hyclate 100 mg caps CHITRA ([facility]) gabapentin 300 MG Oral Capsule gabapentin 300 mg capsu le gabapentin 300 mg capsule completed gabapentin 300 MG Oral Capsule CHITRA ([facility]) Cefuroxime 500 MG Oral Tablet cefuroxime axetil 500 mg tablet TAKE ONE TABLET BY MOUTH EVERY TWELVE HOURS FOR 10 DAYS cefuroxime axetil 500 mg tablet TAKE ONE TABLET BY MOUTH EVERY TWELVE HOURS FOR 10 DAYS completed cefuroxime 500 MG Oral Tablet CHITRA ([facility]) doxycycline hyclate 100 mg caps completed doxycycline hyclate 100 mg caps CHITRA ([facility]) cefuroxime axetil 500 mg tabs co mpleted cefuroxime axetil 500 mg tabs CHITRA ([facility]) gabapentin 600 mg tabs completed gabapentin 600 mg tabs CHITRA ([facility]) doxycycline hyclate 100 mg caps completed doxycycline hyclate 100 mg caps CHITRA ([facility]) acyclovir 400 mg tabs completed acyclovir 400 mg tabs CHITRA ([facility]) doxycycline hyclate 100 MG Oral Capsule doxycycline hy clate 100 mg capsule doxycycline hyclate 100 mg capsule com pleted doxycycline hyclate 100 MG Oral Capsule CHITRA ([facility]) enbrel sureclick 50 mg/ml soaj c ompleted enbrel sureclick 50 mg/ml soaj CHITRA ([facility]) cefuroxime axetil 500 mg tabs co mpleted cefuroxime axetil 500 mg tabs CHITRA ([facility]) Sulfamethoxazole 800 MG / Trimethoprim 1 60 MG Oral Tablet sulfamethoxazole 800 mg-trimethoprim 160 mg tablet TAKE ONE TABLET BY MOUTH EVERY TWELVE HOURS sulfamethoxazole 800 mg-trimethoprim 160 mg tablet TAKE ONE TABLET BY MOUTH EVERY TWELVE HOURS completed sulfamethoxazole 800 MG / trimethoprim 160 MG Oral Tablet CHITRA ([facility]) 0.2 ML Methotrexate 50 MG/ML Auto-Inject or methotrexate (PF) 10 mg/0.2 mL subcutaneous auto-injector Inject 0.2 mL every week by subcutaneous route. methotrexate (PF) 10 mg/0.2 mL subcutaneous auto-injector Inject 0.2 mL every week by subcutaneous route. 0.2 mL completed 0.2 ML methotrexate 50 MG/ML Auto-Injector CHITRA ([facility]) gabapentin 300 MG Oral Capsule gabapentin 300 mg capsu le gabapentin 300 mg capsule completed gabapentin 300 MG Oral Capsule CHITRA ([facility]) amoxicillin/clavulanate potassium 875-125 mg tabs completed amoxicillin/clavulanate potassium 875-125 mg tabs CHITRA ([facility]) Ondansetron 8 MG Oral Tablet ondansetron HCl 8 mg tablet TAKE ONE TABLET BY MOUTH EVERY SIX HOURS NEEDED ondansetron HCl 8 mg tablet TAKE ONE TAB LET BY MOUTH EVERY SIX HOURS NEEDED comple dee ondansetron 8 MG Oral Tablet CHITRA ([facility]) omeprazole 20 mg cpdr completed omeprazole 20 mg cpdr CHITRA ([facility]) cefuroxime axetil 500 mg tabs co mpleted cefuroxime axetil 500 mg tabs CHITRA ([facility]) cephalexin 500 mg caps completed cephalexin 500 mg caps [facility] ([facility]) taltz 80 mg/ml soaj completed taltz 80 mg/ml soaj [facility] ([facility]) Amoxicillin 875 MG / Clavulanate 125 MG Oral Tablet amoxicillin 875 mg-potassium clavulanate 125 mg tablet amoxicillin 875 mg-potassium clavulanate 125 mg tablet completed amoxici llin 875 MG / clavulanate 125 MG Oral Tablet [facility] ([facility]) doxycycline monohydrate 100 mg caps completed doxycycline monohydrate 100 mg caps [facility] ([facility]) gabapentin 600 mg tabs completed gabapentin 600 mg tabs [facility] ([facility]) Prednisone 10 MG Oral Tablet prednisone 10 mg tablet prednisone 10 mg tablet completed prednisone 10 MG Oral Tablet [facility] ([facility]) Prochlorperazine 10 MG Oral Tablet proch lorperazine maleate 10 mg tablet TAKE ONE TABLET BY MOUTH EVERY EIGHT HOURS NEEDED FOR NAUSEA AND VOMITING prochlorperazine maleate 10 mg tablet TAKE ONE TABLET BY MOUTH EVERY EIGHT HOURS NEEDED FOR NAUSEA AND VOMITING com pleted prochlorperazine 10 MG Oral Tablet [facility] ([facility]) baclofen 10 mg tabs completed baclofen 10 mg tabs [facility] ([facility]) Acyclovir 400 MG Oral Tablet acyclovir 4 00 mg tablet TAKE ONE TABLET BY MOUTH TWICE DAILY acyclovir 400 mg tablet TAKE ONE TABLET BY MOUTH TWICE DAILY completed acyclovir 400 MG Ora l Tablet [facility] ([facility]) Potassium Chloride 20 MEQ Extended Relea se Oral Tablet potassium chloride ER 20 mEq tablet,extended release TAKE ONE TABLET BY MOUTH ONCE DAILY potassium chloride ER 20 mEq tablet,extended release TAKE ONE TABLET BY MOUTH ONCE DAILY completed potassium chlo ride 20 MEQ Extended Release Oral Tablet [facility] ([facility]) gabapentin 300 MG Oral Capsule gabapentin 300 mg capsu le gabapentin 300 mg capsule completed gabapentin 300 MG Oral Capsule [facility] ([facility]) jadenu 360 mg tabs completed j adenu 360 mg tabs [facility] ([facility]) ibuprofen 800 mg tabs completed ibuprofen 800 mg tabs [facility] ([facility]) ibuprofen 800 mg tabs completed ibuprofen 800 mg tabs [facility] ([facility]) gabapentin 600 mg tabs completed gabapentin 600 mg tabs [facility] ([facility]) Prednisone 20 MG Oral Tablet prednisone 20 mg tablet TAKE ONE TABLET BY MOUTH TWICE DAILY prednisone 20 mg tablet TAKE ONE TABLET BY MOUTH TWICE DAILY completed prednisone 20 MG Ora l Tablet [facility] ([facility]) Cyclophosphamide 50 MG Oral Capsule cyclophosphamide 5 0 mg capsule cyclophosphamide 50 mg capsule complet ed cyclophosphamide 50 MG Oral Capsule [facility] ([facility]) mupirocin 2 % oint completed m upirocin 2 % oint [facility] ([facility]) cephalexin 500 mg caps completed cephalexin 500 mg caps [facility] ([facility]) ibuprofen 800 mg tabs completed ibuprofen 800 mg tabs [facility] ([facility]) deferasirox 360 mg tabs completed deferasirox 360 mg tabs [facility] ([facility]) acyclovir 400 mg tabs completed acyclovir 400 mg tabs [facility] ([facility]) amoxicillin/clavulanate potassium 875-125 mg tabs completed amoxicillin/clavulanate potassium 875-125 mg tabs [facility] ([facility]) prednisone 20 mg tabs completed prednisone 20 mg tabs [facility] ([facility]) Cephalexin 500 MG Oral Capsule cephalexin 500 mg capsu le cephalexin 500 mg capsule completed cephalexin 500 MG Oral Capsule [facility] ([facility]) potassium chloride er 20 meq tbcr completed potassium chloride er 20 meq tbcr [facility] ([facility]) Ibuprofen 800 MG Oral Tablet ibuprofen 8 00 mg tablet TAKE ONE TABLET BY MOUTH THREE TIMES DAILY ibuprofen 800 mg tablet TAKE ONE TABLET BY MOUTH THREE TIMES DAILY completed ibuprofen 800 MG Oral Tablet [facility] ([facility]) baclofen 10 mg tabs completed baclofen 10 mg tabs [facility] ([facility]) Ondansetron 4 MG Disintegrating Oral Tab let ondansetron 4 mg disintegrating tablet DISSOLVE ONE TABLET UNDER THE TONGUE EVERY SIX HOURS NEEDED ondansetron 4 mg disintegrating tablet DISSOLVE ONE TABLET UNDER THE TONGUE EVERY SIX HOURS NEEDED completed ondansetron 4 MG Disintegrating Oral Tablet [facility] ([facility]) prochlorperazine maleate 10 mg tabs completed prochlorperazine maleate 10 mg tabs [facility] ([facility]) deferasirox 360 MG Oral Tablet deferasirox 360 mg tabl et deferasirox 360 mg tablet completed deferasirox 360 MG Oral Tablet [facility] ([facility]) doxycycline hyclate 100 MG Oral Capsule doxycycline hy clate 100 mg capsule doxycycline hyclate 100 mg capsule com pleted doxycycline hyclate 100 MG Oral Capsule [facility] ([facility]) ferrous sulfate 325 MG Oral Tablet nicole us sulfate 325 mg (65 mg iron) tablet TAKE ONE TABLET BY MOUTH TWICE DAILY ferrous sulfate 325 mg (65 mg iron) tabl et TAKE ONE TABLET BY MOUTH TWICE DAILY c ompleted ferrous sulfate 325 MG Oral Tablet [facility] ([facility]) mupirocin 2 % oint completed m upirocin 2 % oint [facility] ([facility]) Doxycycline Monohydrate 100 MG Oral Caps ule doxycycline monohydrate 100 mg capsule doxycycline monohydrate 100 mg capsule completed doxycycline monohydrate 100 MG Oral Capsule [facility] ([facility]) doxycycline hyclate 100 mg caps completed doxycycline hyclate 100 mg caps [facility] ([facility]) taltz 80 mg/ml soaj completed taltz 80 mg/ml soaj [facility] ([facility]) Amoxicillin 875 MG / Clavulanate 125 MG Oral Tablet amoxicillin 875 mg-potassium clavulanate 125 mg tablet amoxicillin 875 mg-potassium clavulanate 125 mg tablet completed Amoxici llin 875 MG / Clavulanate 125 MG Oral Tablet [facility] ([facility]) doxycycline monohydrate 100 mg caps completed doxycycline monohydrate 100 mg caps [facility] ([facility]) albuterol sulfate HFA 90 mcg/actuation a erosol inhaler INHALE TWO PUFFS BY MOUTH FOUR TIMES DAILY NEEDED [id number] completed [id number] 200 ACTUAT albuterol 0.09 MG/ACTUAT Metered Dose Inhaler [facility] ([facility]) gabapentin 300 MG Oral Capsule gabapentin 300 mg capsu le gabapentin 300 mg capsule completed gabapentin 300 MG Oral Capsule [facility] ([facility]) mupirocin 2 % oint completed m upirocin 2 % oint [facility] ([facility]) cyclophosphamide 50 mg caps com pleted cyclophosphamide 50 mg caps [facility] ([facility]) Omeprazole 20 MG Delayed Release Oral Ca psule omeprazole 20 mg capsule,delayed release omeprazole 20 mg capsule,delayed release completed omeprazole 20 MG Delayed Release Oral Capsule [facility] ([facility]) amoxicillin/clavulanate potassium 875-125 mg tabs completed amoxicillin/clavulanate potassium 875-125 mg tabs [facility] ([facility]) Alendronic acid 70 MG Oral Tablet alendr maikel 70 mg tablet TAKE ONE TABLET BY MOUTH EVERY SEVEN DAYS alendronate 70 mg tablet TAKE ONE TABLET BY MOUTH EVERY SEVEN DAYS completed alendronic acid 70 MG Oral Tablet [facility] ([facility]) acyclovir 400 mg tabs completed acyclovir 400 mg tabs [facility] ([facility]) ibuprofen 800 mg tabs completed ibuprofen 800 mg tabs [facility] ([facility]) celecoxib 200 mg caps completed celecoxib 200 mg caps [facility] ([facility]) cephalexin 500 mg caps completed cephalexin 500 mg caps [facility] ([facility]) baclofen 10 mg tabs completed baclofen 10 mg tabs [facility] ([facility]) celecoxib 200 MG Oral Capsule celecoxib 200 mg capsule celec oxib 200 mg capsule completed celecoxib 200 MG Oral Capsule [facility] ([facility]) Cephalexin 500 MG Oral Capsule cephalexin 500 mg capsu le cephalexin 500 mg capsule completed cephalexin 500 MG Oral Capsule [facility] ([facility]) mupirocin 2 % oint completed m upirocin 2 % oint [facility] ([facility]) doxycycline monohydrate 100 mg caps completed doxycycline monohydrate 100 mg caps [facility] ([facility]) Amoxicillin 875 MG / Clavulanate 125 MG Oral Tablet amoxicillin 875 mg-potassium clavulanate 125 mg tablet amoxicillin 875 mg-potassium clavulanate 125 mg tablet completed amoxici llin 875 MG / clavulanate 125 MG Oral Tablet [facility] ([facility]) prednisone 5 mg tabs completed prednisone 5 mg tabs [facility] ([facility]) omeprazole 20 mg cpdr completed omeprazole 20 mg cpdr [facility] ([facility]) Insurance Providers Payer name Policy type / Coverage type Policy ID Covered alliance party ID Covered alliance party's relationship to gustafson Policy [place] Plan Information FAY [id number] SP [id number] [facility] [id number] SP [id number] [facility] [id number] SP [id number] UHC UNITED MEDICARE DUAL G [id number] Self [id number] MEDICAID M [id number] Self [id number] [facility] O [id number] S [id number] MEDICAID M [id number] S [id number] MEDICARE [id number] SP [id number] T53 Unitedhealthcare Secure [place] P [id number] S [id number] Medicaid S [id number] S [id number] Medicaid [facility] S D [id number] SELF [id number] [facility] Comm Plan Medicare F [id number] SELF [id number] Unitedhealthcare Secure [place] P [id number] S [id number] MEDICARE [id number] SP [id number] T53 Medicaid S [id number] S [id number] T53 Medicare P [id number] S [id number] T53 MEDICAID [id number] SP [id number] Medicaid S [id number] S [id number] MEDICARE [id number] SP [id number] T53 MEDICARE A [id number] Self [id number] T53 MEDICARE C [id number] S [id number] T53 [facility] PART B C [id number] S [id number] Medicare P [id number] S [id number] T53 MEDICAID M [id number] Self [id number] [facility] COMM[facility] PLAN MCDHMO [id number] SP [id number] ANSI-Medicaid [id number] ANSI-Medicaid [id number] ANSI-Medicare Part B [id number] ANSI-Medicare Part B [id number] ANSI-Medicaid [id number] ANSI-Medicaid [id number] ANSI-Medicaid [id number] ANSI-Medicaid [id number] ANSI-Medicare Part B [id number] ANSI-Medicaid [id number] ANSI-Medicaid [id number] ANSI-Medicare Part B [id number] MEDICAID [id number] SP [id number] ANSI-Medicare Part B [id number] ANSI-Medicaid [id number] ANSI-Medicaid [id number] UN COMM[employer]ITY PLAN [facility] [id number] SP [id number] ANSI-Medicare Part B [id number] ANSI-Medicaid [id number] ANSI-Medicaid [id number] MEDICAID [id number] SP [id number] ANSI-Medicaid [id number] ANSI-Medicaid [id number] ANSI-Medicare Part B [id number] Medicaid [facility] Part B [id number] Self [id number] Medicare [facility] Medicare Primary [id number] Self [id number] ANSI-Medicaid [id number] ANSI-Medicaid [id number] ANSI-Medicare Part B [id number] ANSI-Medicaid [id number] ANSI-Medicare Part B [id number] ANSI-Medicaid [id number] ANSI-Medicaid [id number] ANSI-Medicare Part B [id number] ANSI-Medicaid [id number] ANSI-Medicaid [id number] ANSI-Medicare Part B [id number] ANSI-Medicaid [id number] ANSI-Medicaid [id number] ANSI-Medicare Part B [id number] ANSI-Medicaid [id number] ANSI-Medicaid [id number] ANSI-Medicare Part B [id number] ANSI-Medicaid [id number] ANSI-Medicaid [id number] ANSI-Medicare Part B [id number] ANSI-Medicaid [id number] ANSI-Medicaid [id number] ANSI-Medicare Part B [id number] ANSI-Medicaid [id number] Medicaid S [id number] S [id number] ANSI-Medicaid [id number] ANSI-Medicaid [id number] ANSI-Medicare Part B [id number] [employer] COMMUNITY PLAN MCDHMO [id number] SP [id number] [facility] I [id number] Self [id number] Managed Care - Community Plan United [employer] P [id number] S [id number] [facility] I [id number] Self [id number] Managed Care - Community Plan United [employer] P [id number] S [id number] ANSI-Medicaid [id number] Medicaid S [id number] S [id number] UNHC COMMUNITY PLAN MCDHMO [id number] SP [id number] United Healthcare Hmo Commercial [id number] Self [id number] Managed Care - Community Plan United Healthcare P [id number] S [id number] Medicaid S [id number] S [id number] United Healthcare Hmo Commercial Self Managed Care - Community Plan United Healthcare P [id number] S [id number] [facility]) O [id number] S [id number] Managed Care - Community Plan United Healthcare P [id number] S [id number] Medicaid S [id number] S [id number] Managed Care - Community Plan United Healthcare P [id number] S [id number] UNHC COMMUNITY PLAN MCDHMO [id number] SP [id number] Medicaid P [id number] S [id number] MEDICAID [id number] SP [id number] [facility] I [id number] Self [id number] MEDICAID M [id number] Self [id number] MEDICAID - CLINIC [id number] MEDICAID W [id number] S [id number] Problems, Conditions, and Diagnoses Code Display Name Description Problem Type Effective Dates Data Source(s) 443.9 Peripheral vascular disease, unspecified Peripheral vascular disease, unspecified 09/22/2019 03:07:39 PM EDT [facility] S82.855G Nondisplaced trimalleolar fr acture of left lower leg, subsequent encounter for closed fracture with delayed healing Nondisplaced trimalleolar fracture of left lower leg, subsequent encounter for closed fracture with delayed healing 09/22/2019 03:07:39 PM EDT [facility] [id number] Finding by site Finding by Site Problem 09/22/2019 12:0 0:00 AM EDT [facility] ([facility]) [id number] Closed trimalleolar fracture Closed Trimalleolar Fract ure Problem 09/22/2019 12:00:00 AM EDT [facility] ([facility]) 719.47 Ankle pain Ankle pain 08/31/2019 01:27:29 PM ED T [facility] [id number] Finding of ankle or foot Finding of Ankle or Foot Prob ike 08/31/2019 12:00:00 AM EDT [facility] ([facility]) 729.5 Pain in left lower limb Pain in left lower limb 04/26/2019 02:47:59 PM EST [facility] [id number] Finding by site Finding by Site Problem 04/26/2019 12:0 0:00 AM EST [facility] ([facility]) M06.9 Rheumatoid arthritis, unspecified Rheumatoid art hritis, unspecified Diagnosis 03/20/2020 09:14:31 AM [facility] M25.559 Pain in unspecified hip Pain in unspecified hip Diagno sis 03/07/2020 12:32:50 PM [facility] 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 Other lymphoid leukemia not having achieved remission Diagnosis 03/07/2020 12:32:50 P M [facility] L40.50 Arthropathic psoriasis, unspecified Arthropathic psoriasis, unspecified Diagnosis 03/07/2020 12:32:50 PM [facility] Z87.39 Personal history of other di seases of the musculoskeletal system and connective tissue Personal history of other diseases of th e musculoskeletal system and connective tissue Diagnosis 01/03/2020 03:42:42 PM EDT [facility] Surgeries/Procedures Procedure Description Date Indications Data Source(s) SURGERY CASE REQUEST OUTSIDE FACILITY ONLY SURGERY CA SE REQUEST OUTSIDE FACILITY ONLY Routine 03/20/2020 10:26 AM EST Rheumatoid arthritis of left ankle, unspecified whether rheumatoid factor present 03/20/2020 10:26:02 AM EST Rheumatoid ar thritis of left ankle, unspecified whether rheumatoid factor present [facility] Rheumatoid arthritis of left ankle, unsp ecified whether rheumatoid factor present RADEX ANKLE COMPLETE MINIMUM 3 VIEWS 10/16/2019 12:00: 00 AM EDT [facility] ([facility]) RADEX ANKLE COMPLETE MINIMUM 3 VIEWS 09/29/2019 12:00: 00 AM EDT [facility] ([facility]) RADEX FOOT COMPLETE MINIMUM 3 VIEWS 09/29/2019 12:00:0 0 AM EDT [facility] ([facility]) Results ID Date Data Source [id number] 03/20/2020 01:32:44 PM EST [facility] Name Value Range Interpretation Code Description Data Erin rce(s) Supporting Document(s) Progress Note [facility] YICCYq1rGtTFEoCe02/YEXfvXQQiq6BqLMakKUv6MAwmSPXfL1HsNUR5lS0wYUH2ZHoKHnPtEoTeYlT9 [facility] [file] [id number] ID Date Data Source [id number] 03/07/2020 05:02:10 PM [facility] Name Value Range Interpretation Code Description Data Erin rce(s) Supporting Document(s) Progress Note [facility] OHSBWg9mGkJPCjFx70/MSPxiGWFwi2JlQMhbXGk1BApcDJLpP5QdJHK6kM4uKUA6CJmVLzNhVhJbEiBf lbm [file] AgICAgICAgICAgICAgICAgICAgICAgICAgICAgICAg ICAgICAgICAgICAgICAgICAgICAgICAgICAgICAgICAgICAgICAgICAgICAgICAgICAgICAgICAgICAg DQogICAgICAgICAgICAgICAgICAgICAgICAgICAgICAgICAgICAgICAgICAgICAgICAgICAgICAgICAg ICAgICAgICAgICAgICAgICAgICAgICAgICAgICAgIC AgICAgICAgICAgDQogICAgICAgICAgICAgICAgICAgICAgICAgICAgICAgICAgICAgICAgICAgICAgIC AgICAgICAgICAgICAgICAgICAgICAgICAgICAgICAgICAgICAgICAgICAgICAgICAgICAgDQogICAgIC AgICAgICAgICAgICAgICAgICAgICAgICAgICAgICAg ICAgICAgICAgICAgICAgICAgICAgICAgICAgICAgICAgICAgICAgICAgICAgICAgICAgICAgICAgICAg ICAgDQogICAgICAgICAgICAgICAgICAgICAgICAgICAgICAgICAgICAgICAgICAgICAgICAgICAgICAg ICAgICAgICAgICAgICAgICAgICAgICAgICAgICAgIC AgICAgICAgICAgICAgDQogICAgICAgICAgICAgICAgICAgICAgICAgICAgICAgICAgICAgICAgICAgIC AgICAgICAgICAgICAgICAgICAgICAgICAgICAgICAgICAgICAgICAgICAgICAgICAgICAgICAgDQogIC AgICAgICAgICAgICAgICAgICAgICAgICAgICAgICAg ICAgICAgICAgICAgICAgICAgICAgICAgICAgICAgICAgICAgICAgICAgICAgICAgICAgICAgICAgICAg ICAgICAgDQogICAgICAgICAgICAgICAgICAgICAgICAgICAgICAgICAgICAgICAgICAgICAgICAgICAg ICAgICAgICAgICAgICAgICAgICAgICAgICAgICAgIC AgICAgICAgICAgICAgICAgDQogICAgICAgICAgICAgICAgICAgICAgICAgICAgICAgICAgICAgICAgIC AgICAgICAgICAgICAgICAgICAgICAgICAgICAgICAgICAgICAgICAgICAgICAgICAgICAgICAgICAgDQ ogICAgICAgICAgICAgICAgICAgICAgICAgICAgICAg ICAgICAgICAgICAgICAgICAgICAgICAgICAgICAgICAgICAgICAgICAgICAgICAgICAgICAgICAgICAg GKMzYBAbEITeOKd4L5cyXOGrTHPpVF8pPUt8Wv0+CHuCQyCyLUB3sfDfkM1RKK3of5UmSZmtAXVzn7Bl HGs0VH1JIGCwDCuxGS0FQWohxo2DTLLmKOZmsKGOa9 wnDgYgAPJ6PVSbZdwaJA1BKUEgM6rhmrIpDQSkGQRBAC5JEgEmM7AulZ93ZQPOPj1+DQplbmRvYmoNCj GfEUYvh4AtCSi7ZD6LTKWoFnugw4QzZiZgTIINXCepTL7QIAK9QWCoCKEtKr2QSJGmK924ruUkSE3NSw 1MBqQpOP9nti0RJySbFCRsVmyRIky6JLskDF1MxISe AJlRwu1zeoZrruKYq4EyxcBqyPVOgfTfZMKxDVYniTxnBWSaFUOaPUQeBr8wKWSwHUGjUuKjYOKWYP0E LFOnIJFphYGbUEJlRCTZYU3OWGzyITD4LAQwzgJwzPEaLGkuNB0QPSXybyGpCvKfQSYRQAo+Au3BLB5b l7JpDRseZHSuEA9csd4WYEyQUqJmX0X4xAJdB1I0AF opNk4AQCOyEVJwHgWmFULEHVvbRI6IGC0xtsG3MQ7LxONhBURgUHMjkRWeWFt8Y59ahNRzYJytVD2IVF A+Anel+Zf7TDOMjLDGeYHDrBrTzGRQQYnElA4HhP8FUp6DzR4KlVT54cGgjqyEgAUmoEQ0VSC1sRJRnZK TESP4YoVAoyG5kgbObGlLnDSYHYsSjN08ynEEeQHUd SRMsRIKxMd5NQHKbX7RxefMsdQafgkRqIQQuAMIFGE3RPMydcvHqaPMqvEzpFZ79fWfpJN3WYt0YItEb OP1aai7BnSInNv3CBTMcRP1HTFWsXICoUNKpVOA4WQFpDfHvQHruNLChBQZfKOK7MRUgHWOnGH7XAwCt DXKkVKj9DSfaTDWnIRBmcf5ZLFIyWLFwRTWtYeGjZU JeGPOsIDdqBTPgEFXvXPL7LOViIFKlES1JQvCyVMDnJSIyWHtjUZAmUKBgnv7OIGDcSMQkGcEnGrKbRN ZvSKWpTHtnWBJoRFB9AbcxEFZsQTZeOB9ICqJfQSYaLRR4DcztAYUwXFZjln4JDZYrKVJrVOE1FEMyLJ TxQSQjQAihQLZxLKF4AvT7HIAzFSKcFD9ATvZxESCc QEJ9SHrdEOIvPAJfgo7LLUBfSRXoOuPkZSLyXGYuOURcUGorKOCoVPD7EfCtQPEkHGRlLG6QOcPfFKXq FVh8UcHkUTHpHNZmim0JZCVqDKRpTsn4XAXbINUqFZXkNTccJMJbRDM5ERD6IGGeLMDhMG1CImBmJYIu MNyqEoXjHPIdKVCcab8TBFKgDOZjTFUfBPNhGYXvPR WhBGjoBPZxAJU0Vdl7ZXZxYPCgXO0YOnAqPLUhPEo3LyjeZSNfVGVffi5FUAZlHSDeGTt7IzYbRNGjCC VvHHgmNEDbLYCoNFHzLJBoJIUiZJ6SLmDoDDKwQqW1TBVvBNDdYIUmtd1KQLUxUYOtGMRlHZCpWXVhBI YzRGl1rsJinQBoTJt9XZ2DO4DesnKaRqDACl8Sl994 YVO5DVRfRl7ZC0mkVu7pAVSrANLPRb4RFRt6EGB0Q2PkDXQ6ORVyLnQkSAUnL0GeDBFkWaNyUxLrKyv+ RBj4Euj3OaAyZAKkDUDaTMB3KMDvTvUcZfQkQ7DgSaFaLO6qKAJNCt5+DQpzdGFydHhyZWYNCjIxODgy WFseRFDBQq8W ID Date Data Source [id number] 03/07/2020 05:02:05 PM [facility] Name Value Range Interpretation Code Description Data Erin rce(s) Supporting Document(s) Progress Note [facility] NNVLYx9cAhGTDhKa76/JREmyCGPqa7YdGWhxIFs3NSdzSJFnZ4UsPZK9kE0kWHE4WGbTDfEoJdNcZrYe lbm [file] l+5rbH3OkX7LcPuua91RLj3WokRbfID3wXK8GmuIIMhMBceqKUixn7vvd3LKdiH6iVzWVwxhweBU/jose antonio [file] AgICAgICAgICAgICAgICAgICAgICAgICAgICAgICAgICAgICAgICAgICAgICAgICAgICAgICAgICAgIC AgICAgICAgICAgICAgICAgICAgICANCiAgICAgICAgICAgICAgICAgICAgICAgICAgICAgICAgICAgIC AgICAgICAgICAgICAgICAgICAgICAgICAgICAgICAg ICAgICAgICAgICAgICAgICAgICAgICAgICAgICAgICANCiAgICAgICAgICAgICAgICAgICAgICAgICAg ICAgICAgICAgICAgICAgICAgICAgICAgICAgICAgICAgICAgICAgICAgICAgICAgICAgICAgICAgICAg ICAgICAgICAgICAgICANCiAgICAgICAgICAgICAgIC AgICAgICAgICAgICAgICAgICAgICAgICAgICAgICAgICAgICAgICAgICAgICAgICAgICAgICAgICAgIC AgICAgICAgICAgICAgICAgICAgICAgICANCiAgICAgICAgICAgICAgICAgICAgICAgICAgICAgICAgIC AgICAgICAgICAgICAgICAgICAgICAgICAgICAgICAg ICAgICAgICAgICAgICAgICAgICAgICAgICAgICAgICAgICANCiAgICAgICAgICAgICAgICAgICAgICAg ICAgICAgICAgICAgICAgICAgICAgICAgICAgICAgICAgICAgICAgICAgICAgICAgICAgICAgICAgICAg ICAgICAgICAgICAgICAgICANCiAgICAgICAgICAgIC AgICAgICAgICAgICAgICAgICAgICAgICAgICAgICAgICAgICAgICAgICAgICAgICAgICAgICAgICAgIC AgICAgICAgICAgICAgICAgICAgICAgICAgICANCiAgICAgICAgICAgICAgICAgICAgICAgICAgICAgIC AgICAgICAgICAgICAgICAgICAgICAgICAgICAgICAg ICAgICAgICAgICAgICAgICAgICAgICAgICAgICAgICAgICAgICANCiAgICAgICAgICAgICAgICAgICAg ICAgICAgICAgICAgICAgICAgICAgICAgICAgICAgICAgICAgICAgICAgICAgICAgICAgICAgICAgICAg ICAgICAgICAgICAgICAgICAgICANCiAgICAgICAgIC AgICAgICAgICAgICAgICAgICAgICAgICAgICAgICAgICAgICAgICAgICAgICAgICAgICAgICAgICAgIC AgICAgICAgICAgICAgICAgICAgICAgICAgICAgICANCjw/cGKjJ6jgkUVpldW3E7lrZd8ROg9YAZ6vd5 HhEDJcWOndcpOuWsoXZzVxFMEySiaDDse4BUamMK3J rECfI7FwT9TrIYxaXU3PNZWrZDWngEVqNGZxCIMvVrD6DUJqEJflKX5MaSCjUZbgINNaTOUcXlCsCBXk AMOuAKYwFGClUNVGYIEbTQShJfCsKXToYMEiPD8PTHEnK713xoXfNf0XWd9GPuEnFY8fuv8SWmIbNNIy RvjITtd8VVgcPN7TbEVlzUYdEiPxURYGVvDiA5rwz4 EjNzJkXEECPBfjYS5Uy6BzbKOxOIu+Zp2VKE0yw0KkNGamXwNgMQ1xcf4WBKlFSsYeK7UgwXngAKHvv7 mnSIGhBN0hcIAjJKR8VUJqjbAlWXEosaOeOXLxbiEkWDPwcylvPCTGTnBjhURsIh7kDmNtZjGdPLF4De TbII4iJKouIE6ZDGM1PTemAMNiVTRjM5gYXzJiMNNm HyPqaCkiVH0TEvExH8RmvdMzsTLaQgBlIJJOPz4+ADstcmKgGtlIVhW7PIVrm1JnSOx9GP6FAVWuTPjo PP0NNXHjnW2aWSqrYA6GDdJqOTKyDVTRIhRzT53cfGTvJBd7J6WqZeUnBGBuHcxvNCHeUIbrTrRaELEl WyBdDQogID4+ID4+OBzgVX8LUOzhmkRaJIOxRn8ICJ TzSLRoLZ3kDCLzWJYuU6F7bFyxGZSLNwQrB7wvanaaEA4oOXQxL587vFoidzByIBYlYVQoEe5ZJEFnGF N2IRCsvWThPdTdVIBUUOttHS5ZuNYfUTQ2oU6fBFboNSIhRJTmW8iXHrMrkUuwOR40nSybtqIrwWUdZN o+Ku5BIX8gt0OwMHo6reYhUXikVLF4SIwyFZEkRGNi RCErBTY5BDH0OWWJMdWuDCIfVHJhBRgyHSTrSDKsoq4WNSVuAPHlAgQkJtEaVBYuVWEzAVdpOXFdJBH1 KWB1QEDlYEWjWT2JNcWtVCQaSHOgYTfwAMRjOJJycv8XLDAvFMRjLDP5YXNdAGKhZVFqBRqyFNRbEXL0 Elq5LNXfQHHmKS8HOwInLPDpZOkrVvEnFDQwKMEfde 6EJCWoWPWnEeI1ODOiGCHxENKeQQbwRLIgPBL4NAJnBSRoJHDlWE4FSpPjSQEfDVWcPlShGBOlQUScgn 0DXBJoRNTiRyA5EyUyFEHgXGHmKAhoWESmYFVqYGU6KOLpODOoKU0UNbUlXONiTJP9QzEvJPAcJSSlcs 8SVVXfVDCmTlHlEVYcEYPfNNNuNEoxJWMeLZS4SDU8 PQYdXBVwYZ8DJlToUFNwZIt8YWPzIRWmGJSuho2KXKPpOKDnXWnlJeBaBPTcSHKdVMliUIOvATAqJHf9 FQXdVHJtWN4BVkCfAZSlQhKvJBXnCPCqLEDxda0PBSEgAHMqAuN5DMFnSBFxKCJaNBnzTJArQNGhObNf TEZdJTWyEQ0HXgBlYQLuClG8WcHaANBkXWBjey3VEZ YgQPApPjg8AEWrNCZdAVWaJLqzPOQbNUE1YCq0KRKaHCVrLT9LLzCkQPReYuOlRRRsUVAgZDJhem0FHK PlXYOnXKZ3EVGeCMPiPNZiIRuiPERnDYK3KohfUEAjEICcOM0GZkStVMYcZjB2PuMaGEIhUQEdye9MVP PvRCCpOUxbCoRhHDOfDOLkBQmrGCMmBHU7JSNrBMMi EXRrNY1ZGrCrNIFdOdH7ABiwKPQyKEEkzk2YBGNaMJWrQnd3WRTmKIFvTMDlJIbmDMWbOKT8GIXiHERx TJAuEP4CTqFsLTDjXulmBOkrDWYiDJKmsp5AsBWpsAexas9FWJmSGx1StNcbRLP6OUfjCp1meWQaYLCk JVKNHd7IjlNaRAHfVIIAJUskIFWzTNJtSpXaO1ExYR MlCEL1GOO6AoT2AZH9QMO9JUJ0EXPaVhK7HvRdJlD6HMW5T9QbZAHoHqjzAdbfFRA8TaOpAgH4GiO+IF 0gDQo+Nm3Oj7MtwhP1gtFcKMrlQSE9Xn9AZJHVY8VIYr== ID Date Data Source [id number] 01/09/2020 01:00:41 PM EDT [facility] Measurements & CalculationsHeight: 71 inches (5 [...] he has seen his Oncologist here in [place] and he is working on scheduling an [...] during this visit, including review of any onav-xle-tsajujm medications, herbal therapies, and/or supplements.Allergy ReviewAllergy List [...] health is? FairAssessment & Plan Problems:Assessed:Impaired mobility (HIY32-O90.09) Assessment: Instructions: I think that a home [...] Orders:Adult - Ofc Vst, EST, Level III [CPT-46357] Medications:SHOWER CHAIR. UAD #1 x 0 Entered and Authorized by: Mulugeta Ritter MD Method used: Print then Give to Patient Indications: NONDISPLACED TRIMALLEOLAR FRACTURE OF LEFT LOWER LEG, SUBSEQUENT ENCOUNTER FOR CLOSED FRACTURE WITH DELAYED HEALING;ANKLE PAIN;IMPAIRED MOBILITY;ARTHROPATHIC PSORIASIS, UNSPECIFIED RxID: [id number] Note 39 yo male FU pt, Depression, Meds, Requests PEDODONTIST. Pt reports pain 12/13 today in lower back (r side especially) and R hip. Pt requests refill on Omeprazole Name Value Range Interpretation Code Description Data Erin rce(s) Supporting Document(s) ID Date Data Source [id number] 01/04/2020 07:47:09 AM EDT [facility] Name Value Range Interpretation Code Description Data Erin rce(s) Supporting Document(s) Progress Note [facility] TULIZu5kLvAZUoAp77/YENssWSEkc1VtCNkjSCy6VOcoBVFdJ6MkCMO4xP0uBQE6QJzLQpZnCcLjPVXa m [file] PmZO9VGTu= ID Date Data Source [id number] 01/03/2020 03:34:08 PM EDT [facility] Name Value Range Interpretation Code Description Data Erin rce(s) Supporting Document(s) Progress Note [facility] KQBHWt4fMaQMFiEp43/PSKqeDTJfc9UrHGnuVMj3WFhcIBKlR1CsJSF3lE7jIWK7GEaSGuVxRhJjIPAv lbm [file] YNS0eMGuXa4OQpP4UDNITmNrXO6KDQo= ID Date Data Source [id number] 12/09/2019 02:36:00 PM EDT [facility] Name Value Range Interpretation Code Description Data Erin rce(s) Supporting Document(s) ESR 60 mm/hr 0-15 H [facility] HCT 29.8 % 42.0-52.0 L [facility] HGB 9.7 g/dL 13.5-17.5 L [facility] MCH 32.6 G/DL pg 32.0-36.5 N [facility] MCHC 37.2 PG % 27.0-33.0 H [facility] PLATELETS 308 10 10*3/mm3 150-450 N [facility] RBC 2.61 10 10*6/mm3 4.30-6.10 L [facility] RDW 15.7 % 11.5-14.5 H [facility] WBC TOTAL 7.2 4.0-10.0 N [facility] ID Date Data Source [id number] 12/09/2019 02:36:00 PM EDT [facility] Name Value Range Interpretation Code Description Data Erin rce(s) Supporting Document(s) BG FASTING 135 mg/dL 70-100 H [facility] CRP 2.39 mg/dL 0.00-0.30 H [facility] ID Date Data Source [id number] 12/08/2019 01:47:49 PM EDT [facility] Measurements & CalculationsHeight: 71 inches (5 [...] [facility]: [facility]Have you been to an emergency room (ER) or urgent care clinic? NoHave you seen another healthcare provider? NoHave you seen a dentist? NoIntake performed by: Neha Dinaa MA, December 08, 2019 1:56 PMRate Your [...] told him to ask me.Pt was in [facility] 11/15-11/17 for gastroperesis (he claims it was food poisoning)HPI performed by: Mulugeta Ritter MD, December 08, 2019 2:22 PMTransitions of Care InboundProblem ReviewProblem List was reviewed and/or updated during this visit.Medication Reconciliation & ReviewMedication List was reviewed and/or updated during this visit, including review of any pjco-jfk-ecdrzby medications, herbal therapies, and/or supplements.Allergy ReviewAllergy List [...] is? PoorAssessment & Plan Problems:Assessed:Ankle pain (ICD-719.47) (SOU21-J07.579) Assessment: Instructions: Awaiting records from [facility] to make determinations about home health aide and shower chair. I am not sure of di agnosis or plan.Generalized anxiety disorder (ICD-300.02) (DQK06-S21.1) Assessment: Instructions: With PTSD and reportedly bipolar [...] Orders:Adult - Ofc Vst, EST, Level III [CPT-95806] Telepsychiatry Consult [CPT-52748] Mental Health Consult [CPT-92226] Follow-Up Return to clinic: 1-2 months for follow upMedications:OMEPRAZOLE 20 MG ORAL CAPSULE DELAYED RELEASE (OMEPRAZOLE) Take 1 po BID #60[Capsule] x 2 Route:ORAL Entered and Authorized by: Mulugeta Ritter MD Method used: Electronically to [facility]* (retail) [address] [place] [address] Note to Pharmacy: Route: ORAL; RxID: [id number] signed by Mulugeta Ritter MD on 12/08/2019 at 3:51 PM Name Value Range Interpretation Code Description Data Erin rce(s) Supporting Document(s) ID Date Data Source [id number] 11/18/2019 07:33:00 AM EDT [facility] Name Value Range Interpretation Code Description Data Erin rce(s) Supporting Document(s) HCT 29.5 % 42.0-52.0 L [facility] HGB 9.9 g/dL 13.5-17.5 L [facility] MCH 33.6 G/DL pg 32.0-36.[address] [facility] MCHC 37.5 PG % 27.0-33.0 H [facility] PLATELETS 225 10 10*3/mm3 150-450 N [facility] RBC 2.64 10 10*6/mm3 4.30-6.10 L [facility] RDW 14.6 % 11.5-14.5 H [facility] WBC TOTAL 6.3 4.0-10.0 N [facility] ID Date Data Source [id number] 11/17/2019 08:20:00 AM EDT [facility] Name Value Range Interpretation Code Description Data Erin rce(s) Supporting Document(s) HCT 32.1 % 42.0-52.0 L [facility] HGB 11.1 g/dL 13.5-17.5 L [facility] MCH 34.6 G/DL pg 32.0-36.5 N [facility] MCHC 37.9 PG % 27.0-33.0 H [facility] PLATELETS 241 10 10*3/mm3 150-450 N [facility] RBC 2.93 10 10*6/mm3 4.30-6.10 L [facility] RDW 14.7 % 11.5-14.5 H [facility] WBC TOTAL 12.0 4.0-10.0 H [facility] ID Date Data Source [id number] 11/15/2019 02:19:00 PM EDT [facility] Name Value Range Interpretation Code Description Data Erin rce(s) Supporting Document(s) HCT 35.1 % 42.0-52.0 L [facility] HGB 12.0 g/dL 13.5-17.5 L [facility] MCH 34.2 G/DL pg 32.0-36.[address] [facility] MCHC 37.7 PG % 27.0-33.0 H [facility] PLATELETS 314 10 10*3/mm3 150-450 N [facility] RBC 3.18 10 10*6/mm3 4.30-6.10 L [facility] RDW 14.6 % 11.5-14.5 H [facility] WBC TOTAL 12.9 4.0-10.0 H [facility] ID Date Data Source [id number] 11/15/2019 02:19:00 PM EDT [facility] Name Value Range Interpretation Code Description Data Erin rce(s) Supporting Document(s) APPEARANCE U HAZY CLEAR N [facility] SPEC GR URIN 1.021 1.002-1.035 N [facility] UA COLOR YELLOW YELLOW N [facility] ID Date Data Source [id number] 11/12/2019 01:44:52 PM EDT [facility] PCName: Flash ArmijoOB: 1980Provider: Alison Anglin: 11/09/2019 History of Present IllnessCHIEF COMPLAINT Left elbow pain.HISTORY OF PRESENT ILLNESSThe patient is a 39-year-old yjxk-rcme-dwwxqvgn male who comes in today for an [...] He states he does not see a drawing tracer. He notes he does not utilize rheumatoid [...] the elbow. PlanPLANThe patient is a 39-year-old eywx-coft-bwcjvplr male with left elbow pain consistent with [...] rce(s) Supporting Document(s) ID Date Data Source [id number] 10/23/2019 11:08:11 AM EDT [facility] Measurements & CalculationsHeight: 71 inches (5 [...] [facility]: [facility]Have you been to an emergency room (ER) or urgent care clinic? [facility] Have you seen another healthcare provider? Yes [...] counter.He has been on prednisone through his drawing tracer for a long time and the recent Xrays showed osteoporosis. He thinks it has been 5 or six years since the drawing tracer last did a bone density. I have [...] during this visit, including review of any dogy-wvb-nmkieje medications, herbal therapies, and/or supplements.Allergy ReviewAllergy List [...] is? PoorAssessment & Plan Problems:Assessed:Ankle pain (ICD-719.47) (WUL25-X94.579) Assessment: Instructions: Recheck as scheduled with Ortho.Discuss getting a repeat bone density with your drawing tracer.See pain clinic as scheduled.Stop taking Celebrex. Not only is this not helping you with your pain but in combination with prednisone you are at risk of issues like bleeding stomach ulcers.Patient Instructions/Care Plan: Ankle pain: Recheck as scheduled with Ortho.Discuss getting a repeat bone density with your drawing tracer.See pain clinic as scheduled.Stop taking Celebrex. Not [...] Orders:Adult - Ofc Vst, EST, Level III [CPT-91300] Name Value Range Interpretation Code Description Data Erin rce(s) Supporting Document(s) ID Date Data Source [id number] 09/27/2019 10:35:00 AM EDT [facility] Name Value Range Interpretation Code Description Data Erin rce(s) Supporting Document(s) HCT 34.2 % 42.0-52.0 L [facility] HGB 11.1 g/dL 13.5-17.5 L [facility] MCH 32.5 G/DL pg 32.0-36.5 N [facility] MCHC 37.8 PG % 27.0-33.0 H [facility] PLATELETS 294 10 10*3/mm3 150-450 N [facility] RBC 2.94 10 10*6/mm3 4.30-6.10 L [facility] RDW 15.5 % 11.5-14.5 H [facility] WBC TOTAL 6.9 4.0-10.0 N [facility] ID Date Data Source [id number] 09/22/2019 02:23:46 PM EDT [facility] Measurements & CalculationsHeight: 71 inches (5 [...] during this visit, including review of any gnvg-wyc-ozhjdcd medications, herbal therapies, and/or supplements.Allergy ReviewAllergy List [...] for closed fracture with delayed healing (ICD-824.6) (NOW15-Z09.855G)Peripheral vascular disease, unspecified (ICD-443.9) (GRU57-D86.9)Medications:CELECOXIB 200 MG ORAL CAPSULETALTZ 80 MG/ML SUBCUTANEOUS SOLUTION AUTO-INJECTORTRAMADOL HCL 50 MG ORAL TABLETONDANSETRON HCL 8 MG ORAL TABLETOMEPRAZOLE 20 MG ORAL CAPSULE DELAYED RELEASEB-12 1000 MCG ORAL TABLETCYCLOPHOSPHAMIDE 50 MG ORAL CAPSULEBACLOFEN 10 MG ORAL TABLETGABAPENTIN 600 MG ORAL TABLETIBUPROFEN 800 MG ORAL TABLETAllergies:No Known Allergies (updated 09/07/2019) Orders:Adult - Ofc Vst, EST, Level III [CPT-48000] Orthopaedics Consult [CPT-96007] Duplex scan of lower extremity arteries; complete bilateral study [CPT-53246] Name Value Range Interpretation Code Description Data Erin rce(s) Supporting Document(s) ID Date Data Source [id number] 09/13/2019 02:19:15 PM EDT [facility] Labs In-House Blood TestsDate/Time Colle cted: September 13, 2019 2:19 PMTest Result Reference Range Normal ValueComments: blood draw done in offcie done in the right ac tolerated well Andres Harris ANNY, September 13, 2019 2:19 PMAssessment & Plan Orders:90984-Low Vst-Est Level I [CPT-49178] 37086 - Venipuncture [CPT-73510] Name Value Range Interpretation Code Description Data Erin rce(s) Supporting Document(s) ID Date Data Source [id number] 09/13/2019 10:15:00 AM EDT [facility] Name Value Range Interpretation Code Description Data Erin rce(s) Supporting Document(s) URIC ACID 4.8 mg/dL 3.5-7.2 N [facility] ID Date Data Source [id number] 09/13/2019 10:15:00 AM EDT [facility] Name Value Range Interpretation Code Description Data Erin rce(s) Supporting Document(s) ESR 56 mm/hr 0-15 H [facility] ID Date Data Source [id number] 09/07/2019 05:05:34 PM EDT [facility] Measurements & CalculationsHeight: 71 inches (5 [...] in the left foot and ankle. Denies [facility] rheumatoid arthritis. Pt states in 1998 he [...] during this visit, including review of any wohd-zvw-qbdcosu medications, herbal therapies, and/or supplements.Allergy ReviewAllergy List [...] PoorAssessment & Plan Assessment not SavedRheumatoid arthritis (VCU77-N25.9): check RA, ESR, ANAstart celebrexMedications:CELECOXIB 200 MG [...] - Ofc Vst, EST, Level III [CPT- 97819] X-Ray - Ankle, 2 views [CPT-65554] RHEUMATOID FACTOR QUANTITATIVE [CPT- 82055] YUE Screen [CPT-44363] URIC ACID BLOOD [CPT-46229] ESR [CPT-73066] Medications:CELECOXIB 200 MG ORAL CAPSULE (CELECOXIB) one cap po BID X 1day, then oe cap po QD #30[Capsule] x 3 Route:ORAL Entered and Authorized by: Gene Parkinson DO Method used: Electronically to [facility]* (retail) [address] [place] [address] Note to Pharmacy: Route: ORAL; RxID: [id number] signed by Gene Parkinson DO on 09/07/2019 at 5:48 PM Name Value Range Interpretation Code Description Data Erin rce(s) Supporting Document(s) ID Date Data Source [id number] 08/31/2019 01:03:30 PM EDT [facility] Measurements & CalculationsHeight: 71 inches (5 [...] during this visit, including review of any ptah-mat-jjkljmb medications, herbal therapies, and/or supplements.Allergy ReviewAllergy List was reviewed and/or updated during this visit.Provider Calculated and Reviewed all Clinical Protocols for patient today. Review of Systems Musculoskeletal: Complains of joint pain, muscle aches. Care Management Plan Transitions of CareInboundRate Your HealthIn general, would you say your health is? PoorAssessment & Plan Problems:Added: Ankle pain (ICD-719.47) (ICD10- M25.579)Assessment not SavedAnkle pain (ZYZ52-Y37.579): need to seeMedications:TALTZ 80 MG/ML SUBCUTANEOUS SOLUTION AUTO-INJECTORPREDNISONE 10 MG ORAL TABLETTRAMADOL HCL 50 MG ORAL TABLETONDANSETRON HCL 8 MG ORAL TABLETOMEPRAZOLE 20 MG ORAL CAPSULE DELAYED RELEASEB-12 1000 MCG ORAL TABLETCYCLOPHOSPHAMIDE 50 MG ORAL CAPSULEBACLOFEN 10 MG ORAL TABLETGABAPENTIN 600 MG ORAL TABLETIBUPROFEN 800 MG ORAL TABLETAllergies:No Known Allergies (updated 12/29/2017) Orders:Telephone E&M 5-10 min Medical Discussion [CPT- 90086] Vaccines Administered/Entered:Vaccination Group: InfluenzaHistorical Source: Historical information - from patientSeries: 2 NOT GIVENVaccination: Flucelvax Quadrivalent PF (4y+) AdultReason Not Given: Patient decisionEntered Date: 08/31/2019 12:00 AMComments: PT states he got it the pharmacyEntered by: Omkar Lora LPN Name Value Range Interpretation Code Description Data Erin rce(s) Supporting Document(s) ID Date Data Source [id number] 06/29/2019 05:31:20 PM EDT [facility] Name Value Range Interpretation Code Description Data Erin rce(s) Supporting Document(s) Progress Note [facility] ZTIFXi7nGeCGSnWg97/GZVjmMWIfq7JuLXwwOSd6LZvcVGXgS2HxPXO0iE5jOVY4SUpQOzCiVsStGiB1 [facility] [file] sSIpSw7OKrBmDpJMUsJbTC9JQRa= ID Date Data Source [id number] 06/29/2019 05:31:15 PM EDT [facility] Name Value Range Interpretation Code Description Data Erin rce(s) Supporting Document(s) Progress Note [facility] DDHZTu9qKaDVXqMm69/OBQrwIHMfn6MeMNfzLKl0SLazAQDkK9FnTXJ5jU0vZXX6ABhDWlUcXeBsLuZ4 lbm [file] AgICAgICAgICAgICAgICAgICAgICAgICAgICAgICAgICAgICAgICAgICAgICAgICAgICAgICAgICAgIC AgICAgICAgICAgICAgICAgICAgICAgICAgICAgICAgICAgDQogICAgICAgICAgICAgICAgICAgICAgIC AgICAgICAgICAgICAgICAgICAgICAgICAgICAgICAg ICAgICAgICAgICAgICAgICAgICAgICAgICAgICAgICAgICAgICAgICAgICAgDQogICAgICAgICAgICAg ICAgICAgICAgICAgICAgICAgICAgICAgICAgICAgICAgICAgICAgICAgICAgICAgICAgICAgICAgICAg ICAgICAgICAgICAgICAgICAgICAgICAgICAgDQogIC AgICAgICAgICAgICAgICAgICAgICAgICAgICAgICAgICAgICAgICAgICAgICAgICAgICAgICAgICAgIC AgICAgICAgICAgICAgICAgICAgICAgICAgICAgICAgICAgICAgDQogICAgICAgICAgICAgICAgICAgIC AgICAgICAgICAgICAgICAgICAgICAgICAgICAgICAg ICAgICAgICAgICAgICAgICAgICAgICAgICAgICAgICAgICAgICAgICAgICAgICAgDQogICAgICAgICAg ICAgICAgICAgICAgICAgICAgICAgICAgICAgICAgICAgICAgICAgICAgICAgICAgICAgICAgICAgICAg ICAgICAgICAgICAgICAgICAgICAgICAgICAgICAgDQ ogICAgICAgICAgICAgICAgICAgICAgICAgICAgICAgICAgICAgICAgICAgICAgICAgICAgICAgICAgIC AgICAgICAgICAgICAgICAgICAgICAgICAgICAgICAgICAgICAgICAgDQogICAgICAgICAgICAgICAgIC AgICAgICAgICAgICAgICAgICAgICAgICAgICAgICAg ICAgICAgICAgICAgICAgICAgICAgICAgICAgICAgICAgICAgICAgICAgICAgICAgICAgDQogICAgICAg ICAgICAgICAgICAgICAgICAgICAgICAgICAgICAgICAgICAgICAgICAgICAgICAgICAgICAgICAgICAg ICAgICAgICAgICAgICAgICAgICAgICAgICAgICAgIC AgDQogICAgICAgICAgICAgICAgICAgICAgICAgICAgICAgICAgICAgICAgICAgICAgICAgICAgICAgIC FrVNBsBMRhWYJrISRbCWHcGMUgMZXaBODzREEyKZNrWCMmWQCdPNWtWENtGDb5O8asYEWbRTUfRR7mDH d3Jz8+QFpEIdRiLIX5drChpP4VRX5bw5MjFGavWCHn f5CnVHt1ER0SGNIpXSluJC1IYYzsnp3KDSYfJWSovCUFn4peMxFlIIH5QZHhWeuqCR0QZEQpU1yxpzBo ITKtYRHEEJvhSYCGXRcgKPIKKEFuRBGlIjVhFpYlFLYqFXYpXDUWHX4RPfVrW9QipO54FHYERk9+DQpl odGcTevTOnO1CNQpy8KmVZi6XD4CNRCuOabro7YpPd PqZPFHFMogVC4RFVD3SCQ7QSKaQt6HKRCqB716lcYpTM5ONb2VMpHvCB8sgj2QMiRdEVNqFhmZUrm1RI hnUV1BeOChASrPiz7lmzCouyCRc6KogbBfmAVHOLJivWXeIIpbusKVzSUgejN7SC6cBO0XUhPfBQDhSu 7dIb5sMJFwCVLsLvLrWCZVDA9ZCNPzNZSdeTSqDNWx EWXCIQ1GSVeyEVY3WNVwcdImzRZxDKfmXV8CQZRgqdMkLvMhONFDVLy+Hl4IJM0uy4BsDIzvDiNnWK0p kv1WWHqYHvZqD6V6cUSzJ2M0TLprUk3FAEKoHPJsKzQaHMRLTXlqBO8FDF0hudI7TB2XgAClUHBoFBRw bCUbVTh7Z47dyCHyDXhkWA1TVMY+Anel+Gn6NPMNfLK OeEVGjZgNdMQAPRmGiH9AtF6HYw3MhO1TuAL91hKegiaJmGMvsKC5VYY6yWTWiRGWLEN7QoJXrbL0oja JiQJKtMQJJZlMrO47kiVHkWDFzTHZ6OHKaGt0GJRIjP6BhpsYkwCdanrZaJVZiHYSRFD7ZBSiyqhOhmH QqqKumGD48tGomPM5BOx9ZHuEaGS7kkp4ZlPCsYp6A KGPdJX1VYSCiMCCePLHeJXX3KRGkViHuSUikWMMbOQRsPCM1VXJuMEYeJZ2JChZpWYLcTeAxTtDuBFKy OMHfyx7JDGSxVLDxMsc0FAOeYUPxDXCvTPboLVPqVDXhRFD9LXXnKTQvGP3IUgHkUUFdJYZ2YoMgOKBl GDAbqy8BZYZpGOEwMUH7DYFxMIUkWUDaCKmsJRVnWV F2AJI4GILxFFPjMN3ZPjOlGXXmRAY6KyItZQKzZNFidn3CGPSeBNNpHDN2UqRcLGQhVKShEDgjJDQeEV T5Ugd8EUXqQYGgSB2SQxVvILRhRFTqViCcAENmGXVemp2MJGZsFXKyWaKuTMPwSOAtEPCiLSgeEDRzTP V5NEE3SIThMWTiDX8ISwEcFGFpDBklLYDaQYVdLAOl gk0LUNGvCQHtFDXtBcJlKZSfWAUzPBtdWQTsUTJ9OYIkJVPgPAAjXT6LRiEtJOGvBMd9FBIbLGSiPCFc rt8JFJZnQQRpQMJpPJMwXQBrLULhTLguMQRfKIF3QjaaPTHfVYUmYW4RLmRhUNYkUrB4EJExKXAnRUEo kt9QUNJaDBDfDVp4TVOyLSOoXQYtIOhsRNEgIFIjMG MfQOVgNPIlZW5GXnHoXUEiGxG2NiMkAMQbLGFcic9OQZLeDDKqKjt4JzQaLMJqTBAuLTcrVGZfRTHpBA m2VHCdTOCpOH1LHpNbUWOaQeToUWByWDCkAWYnli8TJWRjWQWrAkU0VwPeOKRcKVRcOXglBUTmPUQ6LW J6ZQAwHDJlKX3WPkOsBUCfOuI5GHqzHEGwJHQxtt0H FQHnVFRbPXd8YLPqDEQyVOJvVHuyBWEoYZR8MsPuISDbBKToOX4LJeXiLBNzDdS9GdEvIGPtKDJpbf4B KJUmQQYsIkG7KYFpCFTtPLKeNGxuKNJyKYX6RULdEVGgISYbLD4HFsLrNVAyHzgvFLItYWLkDUCcib5D NSDhIPCfNLT2LyVvVBSaZQQkOXniXMNrPOY5NiSaOH EfXLRnVV7XQoPcQByoPNJAEbd3YKatT7p1GRQnPF3OT6Hbz3KgVyhuLSQERRhvQL7luoQkOYLoDd6WM6 uUDpvoAFGfEeRqZ4J7YvOcTbs8YABsPrm4MjX7XerdLgP7Qa1tLKKhWhDbPLX8SPdePHFfXHdjHAFyFv v1GlMeDVWwSIysXsOuCB2PPk2ESxF2CBB3bRCwMy5ZQiu1EnYYZaDwWQ2ROLu= ID Date Data Source [id number] 04/26/2019 02:01:29 PM [facility] Measurements & CalculationsHeight: 71 inches (5 [...] He also sees a pain specialist. 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 Possibly muscular, [...] PRNOrders:Adult - Ofc Vst, EST, Level III [[id number]] Name Value Range Interpretation Code Description Data Erin rce(s) Supporting Document(s) ID Date Data Source [id number] 02/23/2019 04:15:56 PM EST [facility] Name Value Range Interpretation Code Description Data Erin rce(s) Supporting Document(s) Progress Note [facility] SYCKEu0yBoQCOmAl13/JYEabTCGgr3SzBNzyIKi0VSknCBXgF9PfUOK5lZ0fPMP1WJpUBrWxIRjmZURl lbm [file] 2bQINILx3+TPyhfAUrfZtkOHJVBbB2WCA2KVwhGKOKFs4K Procedure Social History Code Duration Value Status Description Data Source(s ) Alcohol intake 03/20/2020 12:00:00 AM EST Current non-d bernarda of alcohol (finding) completed Current non-drinker of alcohol (finding) [facility] Tobacco use and exposure 03/20/2020 12:00:00 AM EST Never used co mpleted Never used [facility] Cigarette pack-years 03/20/2020 12:00:00 AM EST UNK completed [facility] [facility] Cigarettes smoked current (pack per day) - Reported 03/20/20 12:00:00 AM EST UNK completed [facility] Smoking 03/20/2020 12:00:00 AM EST Former smoker completed Former smoker [facility] Alcohol intake 02/23/2019 12:00:00 AM EST Current non-d bernarda of alcohol (finding) completed Current non-drinker of alcohol (finding) [facility] Cigarette pack-years 02/23/2019 12:00:00 AM EST UNK completed [facility] Cigarettes smoked current (pack per day) - Reported 02/24/20 19 12:00:00 AM EST UNK completed [facility] Smoking 02/23/2019 12:00:00 AM EST Former smoker completed Former smoker [facility] Vital Signs ID Date Data Source UNK Name Value Range Interpretation Code Description Data Source(s) Systolic blood pressure 119 mm[Hg] 119 mm[Hg] A THENA ([facility]) Body height 71 [in_i] 71 [in_i] CHITRA ([facility]) Diastolic blood pressure 71 mm[Hg] 71 mm[Hg] CHITRA ([facility]) Body height 71 [in_i] 71 [in_i] CHITRA ([facility]) Body height 71 [in_i] 71 [in_i] CHITRA ([facility]) Body height 71 [in_i] 71 [in_i] CHITRA ([facility]) Body height 71 [in_i] 71 [in_i] CHITRA ([facility]) Body weight 3248 [oz_av] 3248 [oz_av] CHITRA ([facility]) Systolic blood pressure 112 mm[Hg] 112 mm[Hg] [facility] Body height 71 [in_i] 71 [in_i] CHITRA ([facility]) Diastolic blood pressure 75 mm[Hg] 75 mm[Hg] CHITRA ([facility]) Body weight 3160 [oz_av] 3160 [oz_av] CHITRA ([facility]) Systolic blood pressure 123 mm[Hg] 123 mm[Hg] A THENA ([facility]) Body height 71 [in_i] 71 [in_i] CHITRA ([facility]) Diastolic blood pressure 87 mm[Hg] 87 mm[Hg] CHITRA ([facility]) Body weight 3216 [oz_av] 3216 [oz_av] CHITRA ([facility]) Systolic blood pressure 115 mm[Hg] 115 mm[Hg] A THENA ([facility]) Body height 71 [in_i] 71 [in_i] CHITRA ([facility]) Diastolic blood pressure 68 mm[Hg] 68 mm[Hg] CHITRA ([facility]) Body height 71 [in_i] 71 [in_i] CHITRA ([facility]) Body weight 3328 [oz_av] 3328 [oz_av] CHITRA ([facility]) Systolic blood pressure 110 mm[Hg] 110 mm[Hg] A THENA ([facility]) Body height 71 [in_i] 71 [in_i] HCITRA ([facility]) Diastolic blood pressure 76 mm[Hg] 76 mm[Hg] CHITRA ([facility]) Body weight 198 [lb_av] 198 [lb_av] CHITRA ([facility]) Systolic blood pressure 130 mm[Hg] 130 mm[Hg] A THENA ([facility]) Body mass index (BMI) [Ratio] 27.6 kg/m2 27.6 k g/m2 CHITRA ([facility]) Body height 71 [in_i] 71 [in_i] CHITRA ([facility]) Diastolic blood pressure 79 mm[Hg] 79 mm[Hg] CHITRA ([facility]) Body weight 198 [lb_av] 198 [lb_av] CHITRA ([facility]) Systolic blood pressure 130 mm[Hg] 130 mm[Hg] A THENA ([facility]) Body mass index (BMI) [Ratio] 27.6 kg/m2 27.6 k g/m2 CHITRA ([facility]) Body height 71 [in_i] 71 [in_i] CHITRA ([facility]) Diastolic blood pressure 79 mm[Hg] 79 mm[Hg] CHITRA ([facility]) Body weight 198 [lb_av] 198 [lb_av] CHITRA ([facility]) Systolic blood pressure 130 mm[Hg] 130 mm[Hg] A THENA ([facility]) Body mass index (BMI) [Ratio] 27.6 kg/m2 27.6 k g/m2 CHITRA ([facility]) Body height 71 [in_i] 71 [in_i] CHITRA ([facility]) Diastolic blood pressure 79 mm[Hg] 79 mm[Hg] CHITRA ([facility]) Body weight 198 [lb_av] 198 [lb_av] CHITRA ([facility]) Systolic blood pressure 130 mm[Hg] 130 mm[Hg] A THENA ([facility]) Body mass index (BMI) [Ratio] 27.6 kg/m2 27.6 k g/m2 CHITRA ([facility]) Body height 71 [in_i] 71 [in_i] CHITRA ([facility]) Diastolic blood pressure 79 mm[Hg] 79 mm[Hg] CHITRA ([facility]) Body weight 198 [lb_av] 198 [lb_av] CHITRA ([facility]) Systolic blood pressure 130 mm[Hg] 130 mm[Hg] A THENA ([facility]) Body mass index (BMI) [Ratio] 27.6 kg/m2 27.6 k g/m2 CHITRA ([facility]) Body height 71 [in_i] 71 [in_i] CHITRA ([facility]) Diastolic blood pressure 79 mm[Hg] 79 mm[Hg] CHITRA ([facility]) Body weight 198 [lb_av] 198 [lb_av] CHITRA ([facility]) Systolic blood pressure 130 mm[Hg] 130 mm[Hg] A THENA ([facility]) Body mass index (BMI) [Ratio] 27.6 kg/m2 27.6 k g/m2 CHTIRA ([facility]) Body height 71 [in_i] 71 [in_i] CHITRA ([facility]) Diastolic blood pressure 79 mm[Hg] 79 mm[Hg] CHITRA ([facility]) Body weight 198 [lb_av] 198 [lb_av] CHITRA ([facility]) Systolic blood pressure 130 mm[Hg] 130 mm[Hg] A THENA ([facility]) Body mass index (BMI) [Ratio] 27.6 kg/m2 27.6 k g/m2 CHITRA ([facility]) Body height 71 [in_i] 71 [in_i] CHITRA ([facility]) Diastolic blood pressure 79 mm[Hg] 79 mm[Hg] CHITRA ([facility]) Body weight 198 [lb_av] 198 [lb_av] CHITRA ([facility]) Systolic blood pressure 126 mm[Hg] 126 mm[Hg] A THENA ([facility]) Body mass index (BMI) [Ratio] 27.6 kg/m2 27.6 k g/m2 CHITRA ([facility]) Body height 71 [in_i] 71 [in_i] CHITRA ([facility]) Diastolic blood pressure 79 mm[Hg] 79 mm[Hg] CHITRA ([facility]) Body weight 198 [lb_av] 198 [lb_av] CHITRA ([facility]) Systolic blood pressure 126 mm[Hg] 126 mm[Hg] A THENA ([facility]) Body mass index (BMI) [Ratio] 27.6 kg/m2 27.6 k g/m2 CHITRA ([facility]) Body height 71 [in_i] 71 [in_i] CHITRA ([facility]) Diastolic blood pressure 79 mm[Hg] 79 mm[Hg] CHITRA ([facility]) Body weight 198 [lb_av] 198 [lb_av] CHITRA ([facility]) Systolic blood pressure 126 mm[Hg] 126 mm[Hg] A THENA ([facility]) Body mass index (BMI) [Ratio] 27.6 kg/m2 27.6 k g/m2 CHITRA ([facility]) Body height 71 [in_i] 71 [in_i] CHITRA ([facility]) Diastolic blood pressure 79 mm[Hg] 79 mm[Hg] CHITRA ([facility]) Body weight 198 [lb_av] 198 [lb_av] CHITRA ([facility]) Systolic blood pressure 126 mm[Hg] 126 mm[Hg] A THENA ([facility]) Body mass index (BMI) [Ratio] 27.6 kg/m2 27.6 k g/m2 CHITRA ([facility]) Body height 71 [in_i] 71 [in_i] CHITRA ([facility]) Diastolic blood pressure 79 mm[Hg] 79 mm[Hg] CHITRA ([facility]) Body weight 198 [lb_av] 198 [lb_av] CHITRA ([facility]) Systolic blood pressure 126 mm[Hg] 126 mm[Hg] A THENA ([facility]) Body mass index (BMI) [Ratio] 27.6 kg/m2 27.6 k g/m2 CHITRA ([facility]) Body height 71 [in_i] 71 [in_i] CHITRA ([facility]) Diastolic blood pressure 79 mm[Hg] 79 mm[Hg] CHITRA ([facility]) Body weight 198 [lb_av] 198 [lb_av] CHITRA ([facility]) Systolic blood pressure 126 mm[Hg] 126 mm[Hg] A THENA ([facility]) Body mass index (BMI) [Ratio] 27.6 kg/m2 27.6 k g/m2 CHITRA ([facility]) Body height 71 [in_i] 71 [in_i] CHITRA ([facility]) Diastolic blood pressure 79 mm[Hg] 79 mm[Hg] CHITRA ([facility]) Body weight 198 [lb_av] 198 [lb_av] CHITRA ([facility]) Systolic blood pressure 126 mm[Hg] 126 mm[Hg] A THENA ([facility]) Body mass index (BMI) [Ratio] 27.6 kg/m2 27.6 k g/m2 CHITRA ([facility]) Body height 71 [in_i] 71 [in_i] CHITRA ([facility]) Diastolic blood pressure 79 mm[Hg] 79 mm[Hg] CHITRA ([facility]) Body weight 198 [lb_av] 198 [lb_av] CHITRA ([facility]) Systolic blood pressure 126 mm[Hg] 126 mm[Hg] A THENA ([facility]) Body mass index (BMI) [Ratio] 27.6 kg/m2 27.6 k g/m2 CHITRA ([facility]) Body height 71 [in_i] 71 [in_i] CHITRA ([facility]) Diastolic blood pressure 79 mm[Hg] 79 mm[Hg] CHITRA ([facility]) ID Date Data Source [id number] 04/04/2020 12:37:45 PM [facility] Name Value Range Interpretation Code Description Data Source(s) WEIGHT RECORDED 193 lb 193 lb [facility] Body height Measured [address] [facility] ID Date Data Source [id number] 03/11/2020 04:20:24 PM [facility] Name Value Range Interpretation Code Description Data Source(s) Body height Measured 70.[address] [facility] ID Date Data Source [id number] 02/23/2019 04:15:56 PM [facility] Name Value Range Interpretation Code Description Data Source(s) WEIGHT RECORDED 195.2 lb 195.2 lb [facility] ID Date Data Source [id number] 02/28/2019 02:31:17 PM [facility] Name Value Range Interpretation Code Description Data Source(s) WEIGHT RECORDED 204 lb 204 lb [facility] Body height Measured 70.[address] [facility] Patient Treatment Plan of Care Planned Activity Planned Date Details Description Data Source (s) Prednisone 10 MG Oral Tablet 03/11/2020 12:00:00 AM [facility] Cyclophosphamide 50 MG Oral Capsule 02/23/2020 12:00:00 AM [facility] Prednisone 5 MG Oral Tablet 02/23/2020 12:00:00 AM [facility] Baclofen 10 MG Oral Tablet 02/19/2020 12:00:00 AM [facility] tramadol hydrochloride 50 MG Oral Tablet 02/19/2020 12:00:00 AM [facility] Taltz 80 MG/ML Subcutaneous Solution Auto-injector (ix ekizumab) 01/23/2020 12:00:00 AM [facility] Calcium Carbonate 1250 MG / Cholecalcife rol 200 UNT Oral Tablet [Os-Richelle 500 with D] 01/03/2020 12:00:00 AM [facility] Alendronic acid 70 MG Oral Tablet 01/03/2020 12:00:00 AM [facility] Ixekizumab 80 MG/ML Subcutaneous Solution Auto-injecto r 06/29/2019 12:00:00 AM [facility] deferasirox 2.5 MG/ML Oral Suspension 12/23/2018 12:00:00 AM [facility] deferasirox 5 MG/ML Oral Suspension 12/23/2018 12:00:00 AM [facility] Ibuprofen 600 MG Oral Tablet 08/04/2018 12:00:00 AM [facility] Calcium Carbonate 1250 MG / Cholecalciferol 200 UNT Or al Tablet 04/11/2018 12:00:00 AM [facility] Alendronic acid 70 MG Oral Tablet 04/11/2018 12:00:00 AM [facility] Alendronic acid [address] [facility] Ibuprofen [address] [facility] amoxicillin/clavulanate potassium 875-125 mg tabs CHITRA ([facility]) Amoxicillin 875 MG / Clavulanate 125 MG Oral Tablet CHITRA ([facility]) Alendronic acid 70 MG Oral Tablet CHITRA ([facility]) albuterol sulfate HFA 90 mcg/actuation a erosol inhaler INHALE TWO PUFFS BY MOUTH FOUR TIMES DAILY NEEDED ATHEN A ([facility]) albuterol sulfate hfa 108 (90 base) mcg/act aers CHITRA ([facility]) acyclovir 400 mg tabs CHITRA ([facility]) Acyclovir 400 MG Oral Tablet CHITRA ([facility]) Doxycycline Monohydrate 100 MG Oral Capsule CHITRA ([facility]) doxycycline monohydrate 100 mg caps CHITRA ([facility]) doxycycline hyclate 100 MG Oral Capsule CHITRA ([facility]) doxycycline hyclate 100 mg caps CHITRA ([facility]) Cephalexin 500 MG Oral Capsule CHITRA ([facility]) cephalexin 500 mg caps ATHEN A ([facility]) cefuroxime axetil 500 mg tabs CHITRA ([facility]) baclofen 10 mg tabs CHITRA ( [facility]) amoxicillin/clavulanate potassium 875-125 mg tabs CHITRA ([facility]) Amoxicillin 875 MG / Clavulanate 125 MG Oral Tablet CHITRA ([facility]) acyclovir 400 mg tabs CHITRA ([facility]) omeprazole 20 mg cpdr CHITRA ([facility]) mupirocin 2 % oint CHITRA ([facility]) ibuprofen 800 mg tabs CHITRA ([facility]) gabapentin 600 mg tabs ATHEN A ([facility]) gabapentin 300 MG Oral Capsule CHITRA ([facility]) Doxycycline Monohydrate 100 MG Oral Capsule CHITRA ([facility]) doxycycline monohydrate 100 mg caps CHITRA ([facility]) doxycycline hyclate 100 MG Oral Capsule CHITRA ([facility]) doxycycline hyclate 100 mg caps CHITRA ([facility]) Cephalexin 500 MG Oral Capsule CHITRA ([facility]) cephalexin 500 mg caps ATHEN A ([facility]) cefuroxime axetil 500 mg tabs CHITRA ([facility]) baclofen 10 mg tabs CHITRA ( [facility]) amoxicillin/clavulanate potassium 875-125 mg tabs CHITRA ([facility]) Amoxicillin 875 MG / Clavulanate 125 MG Oral Tablet CHITRA ([facility]) acyclovir 400 mg tabs CHITRA ([facility]) omeprazole 20 mg cpdr CHITRA ([facility]) mupirocin 2 % oint CHITRA ([facility]) ibuprofen 800 mg tabs CHITRA ([facility]) gabapentin 600 mg tabs ATHEN A ([facility]) gabapentin 300 MG Oral Capsule CHITRA ([facility]) tramadol hcl 50 mg tabs ATH JAVIER ([facility]) taltz 80 mg/ml soaj CHITRA ( [facility]) taltz 80 mg/ml soaj CHITRA ([facility]) Sulfamethoxazole 800 MG / Trimethoprim 160 MG Oral Tablet CHITRA ([facility]) prochlorperazine maleate 10 mg tabs CHITRA ([facility]) Prochlorperazine 10 MG Oral Tablet CHITRA ([facility]) prednisone 20 mg tabs CHITRA ([facility]) Prednisone 20 MG Oral Tablet CHITRA ([facility]) prednisone 10 mg tabs CHITRA ([facility]) Prednisone 10 MG Oral Tablet CHITRA ([facility]) prednisone 5 mg tabs CHITRA ([facility]) prednisone 10 mg tabs ATHEN A ([facility]) potassium chloride er 20 meq tbcr CHITRA ([facility]) Potassium Chloride 20 MEQ Extended Release Oral Tablet CHITRA ([facility]) Calcium Carbonate 1250 MG / Cholecalciferol 200 UNT Oral Tablet CHITRA ([facility]) Ondansetron 8 MG Oral Tablet CHITRA ([facility]) Ondansetron 4 MG Disintegrating Oral Tablet CHITRA ([facility]) omeprazole 20 mg cpdr CHITRA ([facility]) Omeprazole 20 MG Delayed Release Oral Capsule CHITRA ([facility]) omeprazole 20 mg cpdr ATHEN A ([facility]) mupirocin 2 % oint CHITRA ([facility]) 0.2 ML Methotrexate 50 MG/ML Auto-Injector CHITRA ([facility]) jadenu 360 mg tabs CHITRA ([facility]) celecoxib 200 mg caps ATHEN A ([facility]) cefuroxime axetil 500 mg tabs CHITRA ([facility]) Cefuroxime 500 MG Oral Tablet CHITRA ([facility]) baclofen 10 mg tabs CHITRA ( [facility]) baclofen 10 mg tabs CHITRA ([facility]) omeprazole 20 mg cpdr CHITRA ([facility]) mupirocin 2 % oint [facility] ibuprofen 800 mg tabs CHITRA ([facility]) gabapentin 600 mg tabs ATHEN A ([facility]) gabapentin 300 MG Oral Capsule CHITRA ([facility]) Doxycycline Monohydrate 100 MG Oral Capsule CHITRA ([facility]) doxycycline monohydrate 100 mg caps CHITRA ([facility]) doxycycline hyclate 100 MG Oral Capsule CHITRA ([facility]) doxycycline hyclate 100 mg caps CHITRA ([facility]) cephalexin 500 mg caps ATHEN A ([facility]) cefuroxime axetil 500 mg tabs CHITRA ([facility]) baclofen 10 mg tabs CHITRA ( [facility]) amoxicillin/clavulanate potassium 875-125 mg tabs CHITRA ([facility]) Amoxicillin 875 MG / Clavulanate 125 MG Oral Tablet CHITRA ([facility]) acyclovir 400 mg tabs CHITRA ([facility]) omeprazole 20 mg cpdr CHITRA ([facility]) mupirocin 2 % oint CHITRA ([facility]) ibuprofen 800 mg tabs CHITRA ([facility]) gabapentin 600 mg tabs ATHEN A ([facility]) gabapentin 300 MG Oral Capsule CHITRA ([facility]) ibuprofen 800 mg tabs CHITRA ([facility]) Ibuprofen 800 MG Oral Tablet CHITRA ([facility]) Ibuprofen 600 MG Oral Tablet CHITRA ([facility]) gabapentin 600 mg tabs ATHEN A ([facility]) gabapentin 300 MG Oral Capsule CHITRA ([facility]) gabapentin 600 mg tabs ATHE NA ([facility]) ferrous sulfate 325 MG Oral Tablet CHITRA ([facility]) ferrous fumarate 200 mg (65 mg iron)-vit C 25 mg tablet,extend release Take 1 tablet every day by oral route. CHITRA ([facility]) enbrel sureclick 50 mg/ml soaj CHITRA ([facility]) 0.98 ML Etanercept 50 MG/ML Auto-Injector [Enbrel] CHITRA ([facility]) Doxycycline Monohydrate 100 MG Oral Capsule CHITRA ([facility]) doxycycline monohydrate 100 mg caps CHITRA ([facility]) doxycycline hyclate 100 MG Oral Capsule CHITRA ([facility]) doxycycline hyclate 100 mg caps CHITRA ([facility]) deferasirox 500 mg tbso ATHE NA ([facility]) deferasirox 360 MG Oral Tablet CHITRA ([facility]) deferasirox 250 mg tbso ATHE NA ([facility]) deferasirox 360 mg tabs ATH JAVIER ([facility]) Cyclophosphamide 50 MG Oral Capsule CHITRA ([facility]) cyclophosphamide 50 mg caps CHITRA ([facility]) Cephalexin 500 MG Oral Capsule CHITRA ([facility]) cephalexin 500 mg caps ATHEN A ([facility]) celecoxib 200 MG Oral Capsule CHIRTA ([facility]) Doxycycline Monohydrate 100 MG Oral Capsule CHITRA ([facility]) doxycycline monohydrate 100 mg caps CHITRA ([facility]) doxycycline hyclate 100 MG Oral Capsule CHITRA ([facility]) doxycycline hyclate 100 mg caps CHITRA ([facility]) Cephalexin 500 MG Oral Capsule CHITRA ([facility]) cephalexin 500 mg caps ATHEN A ([facility]) cefuroxime axetil 500 mg tabs CHITRA ([facility]) baclofen 10 mg tabs CHITRA ( [facility]) amoxicillin/clavulanate potassium 875-125 mg tabs CHITRA ([facility]) Amoxicillin 875 MG / Clavulanate 125 MG Oral Tablet CHITRA ([facility]) acyclovir 400 mg tabs CHITRA ([facility]) omeprazole 20 mg cpdr CHITRA ([facility]) mupirocin 2 % oint CHITRA ([facility]) ibuprofen 800 mg tabs CHITRA ([facility]) Doxycycline Monohydrate 100 MG Oral Capsule CHITRA ([facility]) doxycycline monohydrate 100 mg caps CHITRA ([facility]) doxycycline hyclate 100 MG Oral Capsule CHITRA ([facility]) doxycycline hyclate 100 mg caps CHITRA ([facility]) Cephalexin 500 MG Oral Capsule CHITRA ([facility]) cephalexin 500 mg caps ATHEN A ([facility]) cefuroxime axetil 500 mg tabs CHITRA ([facility]) baclofen 10 mg tabs CHITRA ( [facility]) amoxicillin/clavulanate potassium 875-125 mg tabs CHITRA ([facility]) Amoxicillin 875 MG / Clavulanate 125 MG Oral Tablet CHITRA ([facility]) acyclovir 400 mg tabs CHITRA ([facility]) Taltz Autoinjector 80 mg/mL subcutaneous CHITRA ([facility])
--- NOTE | 2020-04-23 18:23 | HPEPDOC ---
General Date of Admission Apr 23, 2020 at 18:06 Date of Service: Apr 23, 2020 Chief Complaint The patient is a 39-year-old male admitted with a reason for visit of Symptomatic Anemia,T-Cell Large Granular Lymphocyt. Source: Patient Exam Limitations: No limitations Timing/Duration: Day(s) Severity: Moderate History of Present Illness Patient is 39 years old male with past medical history of T-LGL leukemia, rheumatoid arthritis, psoriasis presented to the hospital with increased shortness of breath. Patient was in the infusion Center today and was found to have hemoglobin around 5. Patient stated that he has been having intermittent stool with red blood. Of note in 2018 patient had colonoscopy and EGD showed Small hiatal hernia, Non-bleeding internal hemorrhoids. Chest x-ray negative for acute cardiopulmonary diseases. Home Medications Scheduled Alendronate Sodium (Alendronate Sodium) 70 Mg Tablet, 70 MG PO QWEEK, (Reported) WEDNESDAYS Cyanocobalamin (Vitamin B-12) (Vitamin B-12) 1,000 Mcg Tablet, 1,000 MCG PO QHS, (Reported) Cyclophosphamide (Cyclophosphamide) 50 Mg Capsule, 50 MG PO DAILY Omeprazole (Omeprazole) 20 Mg Capsule.dr, 20 MG PO BID, (Reported) Prednisone (Prednisone) 5 Mg Tablet, 5 MG PO QAM, (Reported) 15MG TOTAL DAILY Prednisone (Prednisone) 10 Mg Tablet, 10 MG PO QHS, (Reported) 15MG TOTAL DAILY Scheduled PRN Acetaminophen (Tylenol Arthritis) 650 Mg Tablet.er, 650 MG PO Q8H PRN for PAIN, (Reported) Baclofen (Baclofen) 10 Mg Tablet, 10 MG PO QHS PRN for SPASMS, (Reported) Gabapentin (Gabapentin) 600 Mg Tablet, 600 MG PO TID PRN for PAIN, (Reported) Ondansetron HCl (Ondansetron HCl) 8 Mg Tablet, 8 MG PO Q6H PRN for NAUSEA OR VOMITING Tramadol HCl (Tramadol HCl) 50 Mg Tablet, 50 MG PO BID PRN for PAIN, (Reported) Allergies Coded Allergies: No Known Allergies (Unverified , 07/11/18) Past Medical History Medical History Rheumatoid arthritis long-term followed by Perez Dos Santos MD, [facility] maintained on prednisone status post treatment with multiple disease modifying and immunosuppressive agents. 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 Surgical History Left hip replacement 2006 Family History I personally reviewed family history and found not pertinent Social History * Smoker: other (vaping) Alcohol: Denies Drugs: denies A-FIB/CHADSVASC A-FIB History Current/History of A-Fib/PAF?: No Current PO Anticoag Therapy: No Review of Systems Constitutional: Denies: Chills, Fever Eyes: Denies: Pain ENT: Denies: Head Aches Skin: Denies: Rash Pulmonary: Reports: Dyspnea Cardiovascular: Denies: Chest Pain Gastrointestinal: Denies: Nausea Genitourinary: Denies: Dysuria, Frequency Hematologic: Denies: Bruising Endocrine: Denies: Polydipsia, Polyphagia Musculoskeletal: Denies: Neck Pain Neurological: Denies: Weakness Psych: Reports: Mood Normal Physical Examination General Exam: Positive: Alert, Cooperative Eye Exam: Positive: PERRLA ENT Exam: Positive: Atraumatic Neck Exam: Positive: Supple; Negative: JVD Chest Exam: Positive: Clear to auscultation Heart Exam: Positive: Rate Normal Telemetry: Positive: No significant arrhythmia Abdomen Exam: Positive: Normal bowel sounds Extremity Exam: Negative: Clubbing Skin Exam: Positive: Nl turgor and temperature Neuro Exam: Positive: Strength at 5/5 X4 ext Psych Exam: Positive: Mental status NL Vital Signs Vital Signs Date Time Temp Pulse Resp B/P (MAP) Pulse Ox O2 Delivery O2 Flow Rate FiO2 04/23/20 17:52 87 18 99 04/23/20 14:50 126/77 (93) 04/23/20 14:45 98.3 Laboratory Data Labs 24H Laboratory Tests 2 04/23/20 15:06: Anion Gap 7L, Glomerular Filtration Rate > 60.0, Calcium Level 9.0, Total Bilirubin 0.2, Direct Bilirubin 0.1, Aspartate Amino Transf (AST/SGOT) 20, A lanine Aminotransferase (ALT/SGPT) 45, Alkaline Phosphatase 137H, Total Creatine Kinase 39, Creatine Kinase MB 1.1, Creatine Kinase MB Relative Index 2.82, Troponin I < 0.02, Total Protein 7.4, Albumin 3.8, Albumin/Globulin Ratio 1.1, Lipase 135 04/23/20 16:52: Neutrophils (%) (Auto) , Nucleated Red Blood Cells % (auto) 0.0, Neutrophils 45, Band Neutrophils 2, Lymphocytes (Manual) 40, Monocytes (Manual) 6H, Basophils (Manual) 1, Atypical Lymphocytes 6H, Hypochromasia 1+, Anisocytosis 2+, Macrocytosis 1+, Platelet Estimate NORMAL 04/23/20 17:19: Coronavirus (COVID-19)(PCR) NEGATIVE, Influenza Type A (RT-PCR) NEGATIVE, Influenza Type B (RT-PCR) NEGATIVE, Respiratory Syncytial Virus (PCR) NEGATIVE CBC/BMP Laboratory Tests 04/23/20 15:06 04/23/20 16:52 Assessment/Plan Patient is 39 years old male with past medical history of T-LGL leukemia, rheumatoid arthritis, psoriasis presented to the hospital with increased shortness of breath. Patient was in the infusion Center today and was found to have hemoglobin around 5. Patient stated that he has been having intermittent stool with red blood. Of note in 2019 patient had colonoscopy and EGD showed Small hiatal hernia, Non-bleeding internal hemorrhoids. Chest x-ray negative for acute cardiopulmonary diseases. Problems (1) Anemia Onset Date: ~ 2018 Status: Acute Problem Text: Acute blood loss anemia secondary to GI loss superimposed with myelosuppression secondary to chemotherapy and with isolated red cell aplasia 2 units of blood IV fluid Appreciate/agree with GI consult H&H every 6 hours Clear liquid for now (2) T-cell large granular lymphocytic leukemia Onset Date: ~ 2018 Status: Acute Problem Text: Follow-up with oncologist in the outpatient settings (3) Rheumatoid arthritis Onset Date: Unknown Status: Acute Problem Text: Follow-up with air twist operator in the outpatient settings Plan / VTE VTE Prophylaxis Ordered?: No VTE Exclusion Pharmacological: Active Bleeding JEISON BASHIR DO Apr 23, 2020 18:23
[2020-04-23 19:55] VITALS: BP 124/73
[2020-04-23 20:08] VITALS: BP 132/73
[2020-04-23 20:41] VITALS: BP 124/81
[2020-04-23] MEDS ORDERED: OMEPRAZOLE 20 MG CAP PO SCH (21:00)
[2020-04-23] MEDS ORDERED: CYANOCOBALAMIN 500 MCG TAB PO SCH (21:00)
[2020-04-23] MEDS ORDERED: predniSONE 10 MG TAB PO SCH (21:00)
[2020-04-23 22:26] VITALS: BP 119/72
[2020-04-23 22:46] VITALS: BP 126/70
[2020-04-23 23:25] VITALS: BP 125/65
[2020-04-24] VITALS: BP 126/62
[2020-04-24 03:00] VITALS: BP 125/70
--- NOTE | 2020-04-24 03:24 | IPNPDOC ---
Text Note Date of Service The patient was seen on 04/24/20. NOTE I was informed by the patient's RN Florentin that the patient wanted to leave AMA. At the time of my visit the patient confirmed that he wanted to leave AMA and added that the reasons that he wanted to leave included being in chronic pain and not having anyone to take care of his cat. Despite offering him pain meds and muscle relaxants the patient declined to stay. He verbalized understanding the risks of leaving included but were not limited to heart attack, stroke, fall resulting in severe injuries and delay of his work-up. I will inform (Attending Physician). VS,Fishbone, I+O VS, Fishbone, I+O Laboratory Tests 04/23/20 15:06 04/23/20 16:52 Vital Signs Date Time Temp Pulse Resp B/P (MAP) Pulse Ox O2 Delivery O2 Flow Rate FiO2 04/24/20 03:00 74 125/70 (88) 98 04/24/20 00:00 98.2 18 Room Air I&O- Last 24 Hours up to 6 AM 04/24/20 06:00 Intake Total 1960 ml Balance 1960 ml KELLY GREGG MD Apr 24, 2020 03:24
--- NOTE | 2020-04-24 05:58 | ECGEPIP ---
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
[2020-04-24] MEDS ORDERED: predniSONE 5 MG TAB PO SCH (09:00)
== END 2020-04-24 03:40 | disposition left against medical advice (07) | DRG 812 ==
LOC: M ED 14:37 → M ED INP 18:06
PROVIDERS: ADMIT Internal Medicine; ATTEND Internal Medicine
PROC: 30233N1 Transfusion of Nonautologous Red Blood Cells into Peripheral Vein, Percutaneous Approach (ICD-10-PCS; principal; 2020-04-23)
DX: D62 Acute posthemorrhagic anemia (principal); C91.Z0 Other lymphoid leukemia not having achieved remission; M06.9 Rheumatoid arthritis, unspecified; D64.81 Anemia due to antineoplastic chemotherapy; F17.290 Nicotine dependence, other tobacco product, uncomplicated; Z96.642 Presence of left artificial hip joint; Z79.52 Long term (current) use of systemic steroids; Z11.52 Encounter for screening for COVID-19; Z79.899 Other long term (current) drug therapy

== ENCOUNTER 2020-04-26 10:35 | Inpatient (IN) | payer MEDICARE, MEDICAID ==
[~2020-04-26] VITALS: Ht 180.3 cm; Wt 86.4 kg
[2020-04-26] VITALS (11 sets, daily range): BP systolic 114–129; BP diastolic 61–81
--- OUTSIDE RECORDS SUMMARY | 2020-04-26 10:44 | CCD ---
Author Author [facility] Organization [facility] Address Unknown Phone Unavailable Support Name Relationship Address Phone Mulugeta Ritter MD Next Of Kin [address] [place] [address] Jennifer Castellanos Next Of Kin Unknown Unavailable Shea Dillon Next Of Kin [address] [place] [address] Gene Parkinson DO Next Of Kin [address] [place] [address] TWIN [place] [address] TATIANA CASTELLANOS Next Of Kin Unknown Nimo Higgins MD Next Of Kin [address] [place] [address] MARIAH GREGORY Next Of Kin [address] [place] [address] MARIAH [place] [address] JOSE BURTON Next Of Kin Unknown Key Pendleton Next Of Kin [address] [place] [phone] Summer Almazan Next Of Kin [address] [place], [place] [phone] [place] [address] KARSTEN GUIDRY Next Of Kin Unknown Unavailable UE Next Of Kin Unknown Unavailable Yoli CASTELLANOS Next Of Kin [address] [place] [address] JOURDAN [place] [address] DISABLED Next Of Kin Unknown Unavailable JENNIFER CASTELLANOS Next Of Kin [address] [place] [address] Jennifer Castellanos ECON [place] [address] Unavailable Jourdan [place] [address] Care Team 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 Name Role Phone Shea Nowak RESIDENTIAL PEST CONTROL TECHNICIAN RESIDENTIAL PEST CONTROL TECHNICIAN Unavailable Unavailable VANVALBoyd FOURNIER MD Unavailable [...] Barratt PA Unavailable Unavailable Veda Nowak Shea RESIDENTIAL PEST CONTROL TECHNICIAN-BC Unavailable Unavailable Nowak, F Shea RESIDENTIAL PEST CONTROL TECHNICIAN-BC Unavailable Unavailable Nowak, F Shea RESIDENTIAL PEST CONTROL TECHNICIAN-BC Unavailable Unavailable Nowak, F Shea RESIDENTIAL PEST CONTROL TECHNICIAN-BC Unavailable Unavailable Nowak, F Shea RESIDENTIAL PEST CONTROL TECHNICIAN-BC Unavailable Unavailable Nowak, F Shea RESIDENTIAL PEST CONTROL TECHNICIAN-BC Unavailable Unavailable Nowak, F Shea RESIDENTIAL PEST CONTROL TECHNICIAN-BC Unavailable Unavailable Nowak, F Shea RESIDENTIAL PEST CONTROL TECHNICIAN-BC Unavailable Unavailable Nowak, F Shea RESIDENTIAL PEST CONTROL TECHNICIAN-BC Unavailable Unavailable Nowak, F Shea RESIDENTIAL PEST CONTROL TECHNICIAN-BC Unavailable Unavailable Nowak, F Shea RESIDENTIAL PEST CONTROL TECHNICIAN-BC Unavailable Unavailable Nowak, F Shea RESIDENTIAL PEST CONTROL TECHNICIAN-BC Unavailable Unavailable Nowak, F Shea RESIDENTIAL PEST CONTROL TECHNICIAN-BC Unavailable Unavailable Nowak, F Shae RESIDENTIAL PEST CONTROL TECHNICIAN-BC Unavailable Unavailable Nowak, F Shea RESIDENTIAL PEST CONTROL TECHNICIAN-BC Unavailable Unavailable Nowak, F Shea RESIDENTIAL PEST CONTROL TECHNICIAN-BC Unavailable Unavailable Nowak, F Shea RESIDENTIAL PEST CONTROL TECHNICIAN-BC Unavailable Unavailable Nowak, F Shea RESIDENTIAL PEST CONTROL TECHNICIAN-BC Unavailable Unavailable Nowak, F Shea RESIDENTIAL PEST CONTROL TECHNICIAN-BC Unavailable Unavailable Nowak, F Shea RESIDENTIAL PEST CONTROL TECHNICIAN-BC Unavailable Unavailable Nowak, F Shea RESIDENTIAL PEST CONTROL TECHNICIAN-BC Unavailable Unavailable Nowak, F Shea RESIDENTIAL PEST CONTROL TECHNICIAN-BC Unavailable Unavailable Fish, [facility], PA-C Unavailable Unavailabl e Fish, [facility], PA-C Unavailable Unavailabl e Fish, [facility], PA-C Unavailable Unavailabl e Fish, [facility], PA-C Unavailable Unavailabl e Fish, [facility], PA-C Unavailable Unavailabl e Fish, [facility], PA-C Unavailable Unavailabl e Fish, [facility], PA-C Unavailable Unavailabl e Fish, [facility], PA-C Unavailable Unavailabl e Fish, [facility], PA-C Unavailable Unavailabl e Fish, [facility], PA-C Unavailable Unavailabl e Fish, [facility], PA-C Unavailable Unavailabl e Fish, [facility], PA-C Unavailable Unavailabl e Fish, [facility], PA-C Unavailable Unavailabl e Fish, [facility], PA-C Unavailable Unavailabl e Fish, [facility], PA-C Unavailable Unavailabl e Fish, [facility], PA-C Unavailable Unavailabl e Fish, [facility], PA-C Unavailable Unavailabl e Fish, [facility], PA-C Unavailable Unavailabl e Fish, [facility], PA-C Unavailable Unavailabl e Fish, [facility], PA-C Unavailable Unavailabl e Fish, [facility], PA-C Unavailable Unavailabl e Fish, [facility], PA-C Unavailable Unavailabl e Fish, [facility], PA-C Unavailable Unavailabl e Fish, [facility], PA-C Unavailable Unavailabl e Fish, [facility], PA-C Unavailable Unavailabl e Fish, [facility], PA-C Unavailable Unavailabl e Fish, [facility], PA-C Unavailable Unavailabl e Fish, [facility], PA-C Unavailable Unavailabl e Fish, [facility], PA-C Unavailable Unavailabl e Fish, [facility], PA-C Unavailable Unavailabl e Fish, [facility], PA-C Unavailable Unavailabl e Fish, [facility], PA-C Unavailable Unavailabl e Fish, [facility], PA-C Unavailable Unavailabl e Chin, Gene DO [...] Ritter MD Unavailable Unavailable Jumalon, M Camila RESIDENTIAL PEST CONTROL TECHNICIAN Unavailable Unavailable Jumalon, M Camila RESIDENTIAL PEST CONTROL TECHNICIAN Unavailable Unavailable Jumalon, M Camila RESIDENTIAL PEST CONTROL TECHNICIAN Unavailable Unavailable Jumalon, M Camila RESIDENTIAL PEST CONTROL TECHNICIAN Unavailable Unavailable Jumalon, M Camila RESIDENTIAL PEST CONTROL TECHNICIAN Unavailable Unavailable Jumalon, M Camila RESIDENTIAL PEST CONTROL TECHNICIAN Unavailable Unavailable Jumalon, M Camila RESIDENTIAL PEST CONTROL TECHNICIAN Unavailable Unavailable Jumalon, M Camila RESIDENTIAL PEST CONTROL TECHNICIAN Unavailable Unavailable Jumalon, M Camila RESIDENTIAL PEST CONTROL TECHNICIAN Unavailable Unavailable Jumalon, M Camila RESIDENTIAL PEST CONTROL TECHNICIAN Unavailable Unavailable Jumalon, M Camila RESIDENTIAL PEST CONTROL TECHNICIAN Unavailable Unavailable Jumalon, M Camila RESIDENTIAL PEST CONTROL TECHNICIAN Unavailable Unavailable Jumalon, M Camila RESIDENTIAL PEST CONTROL TECHNICIAN Unavailable Unavailable Jumalon, M Camila RESIDENTIAL PEST CONTROL TECHNICIAN Unavailable Unavailable Jumalon, M Camila RESIDENTIAL PEST CONTROL TECHNICIAN Unavailable Unavailable Jumalon, M Camila RESIDENTIAL PEST CONTROL TECHNICIAN Unavailable Unavailable Jumalon, M Camila RESIDENTIAL PEST CONTROL TECHNICIAN Unavailable Unavailable Jumalon, M Camila RESIDENTIAL PEST CONTROL TECHNICIAN Unavailable Unavailable Jumalon, M Camila RESIDENTIAL PEST CONTROL TECHNICIAN Unavailable Unavailable Jumalon, M Camila RESIDENTIAL PEST CONTROL TECHNICIAN Unavailable Unavailable Jumalon, M Camila RESIDENTIAL PEST CONTROL TECHNICIAN Unavailable Unavailable Jumalon, M Camila RESIDENTIAL PEST CONTROL TECHNICIAN Unavailable Unavailable Jumalon, M Camila RESIDENTIAL PEST CONTROL TECHNICIAN Unavailable Unavailable Jumalon, M Camila RESIDENTIAL PEST CONTROL TECHNICIAN Unavailable Unavailable Jumalon, M Camila RESIDENTIAL PEST CONTROL TECHNICIAN Unavailable Unavailable Jumalon, M Camila RESIDENTIAL PEST CONTROL TECHNICIAN Unavailable Unavailable Jumalon, M Camila RESIDENTIAL PEST CONTROL TECHNICIAN Unavailable Unavailable Jumalon, M Camila RESIDENTIAL PEST CONTROL TECHNICIAN Unavailable Unavailable FishTomasa MPAS, PA-C Unavailable Unavailabl e Fish, Tomasa Gómez MPAS, PA-C Unavailable Unavailabl e Fish, Tomasa Gómez MPAS, PA-C Unavailable Unavailabl e Fish, Tomasa Gómez MPAS, PA-C Unavailable Unavailabl e Fish, [facility], PA-C Unavailable Unavailabl e Fish, [facility], PA-C Unavailable Unavailabl e Fish, [facility], PA-C Unavailable Unavailabl e Fish, [facility], PA-C Unavailable Unavailabl e Fish, [facility], PA-C Unavailable Unavailabl e Fish, [facility], PA-C Unavailable Unavailabl e Fish, [facility], PA-C Unavailable Unavailabl e Fish, [facility], PA-C Unavailable Unavailabl e Fish, [facility], PA-C Unavailable Unavailabl e Fish, [facility], PA-C Unavailable Unavailabl e Fish, [facility], PA-C Unavailable Unavailabl e Fish, [facility], PA-C Unavailable Unavailabl e Fish, [facility], PA-C Unavailable Unavailabl e Fish, [facility], PA-C Unavailable Unavailabl e Fish, [facility], PA-C Unavailable Unavailabl e Fish, [facility], PA-C Unavailable Unavailabl e Fish, [facility], PA-C Unavailable Unavailabl e Fish, [facility], PA-C Unavailable Unavailabl e Fish, [facility], PA-C Unavailable Unavailabl e Fish, [facility], PA-C Unavailable Unavailabl e Fish, [facility], PA-C Unavailable Unavailabl e Fish, [facility], PA-C Unavailable Unavailabl e Fish, [facility], PA-C Unavailable Unavailabl e Fish, [facility], PA-C Unavailable Unavailabl e Fish, [facility], PA-C Unavailable Unavailabl e Fish, [facility], PA-C Unavailable Unavailabl e Fish, [facility], PA-C Unavailable Unavailabl e Fish, [facility], PA-C Unavailable Unavailabl e Fish, [facility], PA-C Unavailable Unavailabl e Kaci Peralta Unavailable Kaci Peralta Unavailable Estefanía Ritter MD Unavailable Unavailable Estefanía Ritter MD Unavailable Unavailable Estefanía Ritter MD Unavailable Unavailable Estefanía Ritter MD Unavailable Unavailable Estefanía Ritter MD Unavailable Unavailable Estefanía Ritter MD Unavailable Unavailable Estefanía Ritter MD Unavailable Unavailable Estefnaía Ritter MD Unavailable Unavailable Estefanía Ritter MD [...] Unavailable Estefanía Ritter MD Unavailable Unavailable Estefanía Ritetr MD Unavailable Unavailable Estefanía Ritter MD Unavailable [...] Unavailable YONY, Freddy HILL MD Unavailable Unavailable OYNY, Freddy HILL MD Unavailable Unavailable YONY, Freddy HILL MD Unavailable Unavailable YONY, Ferddy HILL MD Unavailable Unavailable YONY, Freddy HILL [...] B SERGIO VELOZ Unavailable Unavailable YONY, B SERGOI VELOZ Unavailable Unavailable YONY, B SERGIO VELOZ [...] is protected by Article 27-F of the [facility] Public Health law. If you continue you may have access to information: Regarding HIV / AIDS; Provided by facilities licensed or operated by the [facility] Office of Mental Health; or Provided by the [facility] Office for People With Developmental Disabilities. If such information is present, then the following [facility] mandated warning applies: This information has [...] law may result in a fine or group home sentence or both. A general authorization for the release of medical or other information is NOT sufficient authorization for further disc losure. Allergies and Adverse Reactions Type Description Substance Reaction Status Data Source(s ) Drug Class NO KNOWN ALLERGIES NO KNOWN ALLERGIES [facility] Allergy to substance Allergy to substance Allergy to substance [facility] ([facility]) Family History Family Member Name Family Member Gender Family Member Status Date o f Status Description Data Source(s) Unknown Unknown Problem [facility] ([facility]) Encounters Encounter Providers Location Date Indications Data Source(s ) Outpatient 05/30/2020 12:00:00 AM [facility] Outpatient Attender: HECTOR VILLAGOMEZ 05/23/2020 12:00:00 AM [facility] Outpatient Attender: MULUGETA CASON MD [id number] 03/20/2020 12:00:00 AM EST Rheumatoid arthritis, unspecified [facility] Rheumatoid arthritis, unspecified Outpatient Attender: HECTOR VILLAGOMEZ [id number] 03/07/2020 12:00:00 AM EST - 03/07/2020 02:33:21 PM EST Arthropathic psoriasis, unspecified [facility] Arthropathic psoriasis, unspecified Outpatient 03/07/2020 12:00:00 AM [facility] Camila Bueno Abhi, CHIEF EXECUTIVE OR MANAGING DIRECTOR: [address], [place] [address], Ph. Attender: Camila Moe [facility] - [facility] - Main Office 02/19/2020 12:00:00 AM EST ATHE NA ([facility]) Kaci Kathryn, [facility]: [address] [place] [phone], Ph. Attender: Kaci Peralta PA - [facility] Medical 01/29/2020 12:00:00 AM EDT [facility] ([facility]) Outpatient Attender: Mulugeta Ritter MD 01/22/2020 02:57:00 PM EDT [facility] Outpatient Attender: Mulugeta Ritter MD 01/16/2020 11:45:00 AM EDT [facility] Outpatient Attender: Mulugeta Ritter MD 01/15/2020 08:51:03 AM EDT [facility] Outpatient Attender: Mulugeta Ritter MD 01/15/2020 08:51:01 AM EDT [facility] Outpatient Attender: Mulugeta Ritter MD 01/11/2020 11:19:01 AM EDT [facility] Outpatient Attender: Mulugeta Ritter MD 01/10/2020 01:34:00 PM EDT [facility] Outpatient Attender: Mulugeta Ritter MD 01/09/2020 01:57:00 PM EDT [facility] Outpatient Attender: Mulugeta Ritter MD 01/09/2020 12:51:01 PM EDT [facility] Outpatient Attender: Kaveh GUDINO Physical Therapy 11:15:00 AM EDT [facility] ([facility]) Outpatient Attender: HECTOR VILLAGOMEZ [id number] 01/03/2020 12:00:00 AM EDT - 01/03/2020 04:13:52 PM EDT Arthropathic psoriasis, unspecified [facility] Arthropathic psoriasis, unspecified Outpatient Attender: Mulugeta Ritter MD 01/02/2020 12:49:00 PM EDT [facility] Outpatient Attender: Mulugeta Ritter MD 01/01/2020 02:55:00 PM EDT [facility] Outpatient Attender: Mulugeta Ritter MD FP 01/01/2020 12:14:03 PM EDT [facility] Outpatient Attender: Mulugeta Ritter MD 01/01/2020 12:14:01 PM EDT [facility] Outpatient Attender: RAFAT ALBERTS MD Physical Therapy 09:00:00 AM EDT [facility] ([facility]) Outpatient Attender: Mulugeta Ritter MD 12/29/2019 04:27:02 PM EDT [facility] Outpatient Attender: Mulugeta Ritter MD 12/29/2019 04:27:02 PM EDT [facility] Camila Moe, CHIEF EXECUTIVE OR MANAGING DIRECTOR: [address], [place] [address], Ph. Attender: Camila Moe [facility] 12/27/2019 12:00:00 AM EDT ATHE NA ([facility]) Camila Moe, CHIEF EXECUTIVE OR MANAGING DIRECTOR: [address], [facility] [place] [address], Ph. Attender: Camila Moe [facility] 12/27/2019 12:00:00 AM EDT ATHE NA ([facility]) Outpatient Attender: Mulugeta Ritter MD 12/26/2019 09:13:00 AM EDT [facility] Outpatient Attender: AL MELENDEZ 12/25/2019 10:38:01 AM EDT [facility] Outpatient Attender: Shea SANDOVAL 12/22/2019 09: 54:00 AM EDT [facility] Outpatient Attender: Shea SANDOVAL 12/18/2019 09: 01:05 AM EDT [facility] Outpatient Attender: AL MELENDEZ 12/18/2019 09:01:03 AM EDT [facility] Outpatient Attender: Shea SANDOVAL 12/12/2019 02: 24:01 PM EDT [facility] Outpatient Attender: RAFAT ALBERTS MD Physical Therapy 08:30:00 AM EDT MED[facility] ([facility]) Outpatient Attender: Shea SANDOVAL 12/08/2019 03: 52:01 PM EDT [facility] Outpatient Attender: Shea MELENDEZ-BC 12/08/2019 03: 18:05 PM EDT [facility] 12/08/2019 01:41:00 PM EDT [facility] Outpatient Attender: AL MELENDEZ 11/30/2019 02:05:03 PM EDT [facility] Camila Moe, CHIEF EXECUTIVE OR MANAGING DIRECTOR: [address], [place] [address], Ph. Attender: Camila Moe [facility] 11/21/2019 12:00:00 AM EDT ATHE NA ([facility]) Camila Moe, CHIEF EXECUTIVE OR MANAGING DIRECTOR: [address], [facility] [place] [address], Ph. Attender: Camila Moe [facility] 11/21/2019 12:00:00 AM EDT ATHE NA ([facility]) Camila Saavedra Isabelnyu [facility], CHIEF EXECUTIVE OR MANAGING DIRECTOR: [address], [facility] [place] [address], Ph. Attender: Camila Moe [facility] 11/21/2019 12:00:00 AM EDT ATHE NA ([facility]) Outpatient Attender: HECTOR VILLAGOMEZ 11/16/2019 12:00:00 AM ED [facility] Outpatient 11/16/2019 12:00:00 AM EDT [facility] Outpatient Attender: JOSEFINA ANGLIN MDReferrer: Mulugeta flannery MD 11/12/2019 01:44:52 PM EDT [facility] Recurring Patient Referrer: Dalia BARTON PA-C 09/2019 03:01:22 PM EDT [facility] Outpatient Attender: Shea SANDOVAL 11/02/2019 04: 33:01 PM EDT [facility] Recurring Patient Referrer: Dalia BARTON PA-C 10/04 03:30:32 PM EDT [facility] Recurring Patient Referrer: Dalia BARTON PA-C 10/04 01:32:12 PM EDT [facility] Camila Moe, CHIEF EXECUTIVE OR MANAGING DIRECTOR: [address], [place] [address], Ph. Attender: Camila Moe [facility] 10/24/2019 12:00:00 AM EDT AT[facility] NA ([facility]) Camila Moe, CHIEF EXECUTIVE OR MANAGING DIRECTOR: [address], [place] [address], Ph. Attender: Camila Moe [facility] 10/24/2019 12:00:00 AM EDT ATHE NA ([facility]) Camila Moe, CHIEF EXECUTIVE OR MANAGING DIRECTOR: [address], [place] [address], Ph. Attender: Camila Moe [facility] 10/24/2019 12:00:00 AM EDT ATHJami NA ([facility]) Camila Moe, CHIEF EXECUTIVE OR MANAGING DIRECTOR: [address], [place] [address], Ph. Attender: Camila Halllorettakaitlin [facility] 10/24/2019 12:00:00 AM EDT ATHE NA ([facility]) [facility]patient [facility]: [facility] 10/23/[facility] 01: 50:00 PM EDT [facility] Outpatient Attender: AL MELENDEZ 10/23/2019 10:44:01 AM EDT [facility] Outpatient Attender: RAFAT ALBERTS MD Physical Therapy 03:00:00 PM EDT MED[facility] ([facility]) Outpatient Attender: AL MELENDEZ FP 10/04/2019 08:53:00 AM EDT [facility] Outpatient Attender: Dalia BARTON PA-C Physical Therapy 09/29/2019 02:00:00 PM EDT [facility] ([facility]) Outpatient Attender: AL MELENDEZ FP 09/29/2019 11:58:02 AM EDT [facility] Outpatient Attender: Shea SANDOVAL FP 09/29/2019 11: 58:01 AM EDT [facility] Outpatient Attender: Shea SANDOVAL FP 09/29/2019 09: 38:03 AM EDT [facility] Outpatient Attender: AL MELENDEZ FP 09/28/2019 03:48:00 PM EDT [facility] Outpatient Referrer: MD HECTOR VILLAGOMEZ 09/28/2019 05:10:00 AM EDT [facility] Outpatient Attender: AL MELENDEZ FP 09/27/2019 01:01:00 PM EDT [facility] Outpatient Attender: AL MELENDEZ FP 09/26/2019 04:20:01 PM EDT [facility] Outpatient Attender: AL BARROSO 09/26/2019 03:24:01 PM EDT [facility] Outpatient Attender: AL BARROSO 09/22/2019 03:08:02 PM EDT [facility] Outpatient Attender: Shea SANDOVAL FP 09/22/2019 03: 08:01 PM EDT [facility] Outpatient Attender: AL BARROSO 09/22/2019 02:02:00 PM EDT [facility] Outpatient Attender: AL BARROSO 09/18/2019 12:48:01 PM EDT [facility] Outpatient Attender: Shea BARROSO 09/17/2019 02: 44:00 PM EDT [facility] Outpatient Attender: Shea SANDOVAL FP 09/14/2019 08: 54:03 AM EDT [facility] Outpatient Attender: AL BARROSO 09/14/2019 08:54:02 AM EDT [facility] Outpatient Attender: AL MELENDEZ FP 09/12/2019 01:55:00 PM EDT [facility] Outpatient Attender: AL MELENDEZ 09/11/2019 09:50:01 AM EDT [facility] Outpatient Attender: Shea Nowak RESIDENTIAL PEST CONTROL TECHNICIAN- FP 09/07/2019 05: 49:02 PM EDT [facility] Outpatient Attender: AL MELENDEZ 09/07/2019 05:06:00 PM EDT [facility] Camila Moe, CHIEF EXECUTIVE OR MANAGING DIRECTOR: [address], [place] [address], Ph. Attender: Camila Moe [facility] 09/05/2019 12:00:00 AM EDT CH[facility]RA ([facility]) Camila Moe, CHIEF EXECUTIVE OR MANAGING DIRECTOR: [address], [place] [address], Ph. Attender: Camila Moe [facility] - [facility] 09/05/2019 12:00:00 AM EDT [facility] ([facility]) Camila Moe, CHIEF EXECUTIVE OR MANAGING DIRECTOR: [address], [place] [address], Ph. Attender: Camila Moe [facility] - [facility] 09/05/2019 12:00:00 AM EDT [facility] ([facility]) Camila Moe, CHIEF EXECUTIVE OR MANAGING DIRECTOR: [address], [place] [address], Ph. Attender: Camila Moe [facility] - [facility] 09/05/2019 12:00:00 AM EDT [facility] ([facility]) Camila Moe, CHIEF EXECUTIVE OR MANAGING DIRECTOR: [address], [place] [address], Ph. Attender: Camila Moe [facility] - [facility] 09/05/2019 12:00:00 AM EDT [facility] ([facility]) Outpatient Attender: AL Nowak RESIDENTIAL PEST CONTROL TECHNICIAN FP 08/31/2019 01:30:00 PM EDT [facility] Outpatient Attender: AL MELENDEZ 08/31/2019 01:28:04 PM EDT [facility] Outpatient Attender: Shea MELENDEZ- FP 08/31/2019 01: 28:02 PM EDT [facility] Outpatient Attender: AL MELENDEZ 08/23/2019 10:03:01 AM EDT [facility] Outpatient Attender: DO Parkinson FP 08/22/2019 07:51:00 AM EDT [facility] Outpatient Attender: NIMO HIGGINS MD 08/02/2019 09:21:00 A M EDT [facility] Camila Moe, CHIEF EXECUTIVE OR MANAGING DIRECTOR: [address], [place] [address], Ph. Attender: Camila Moe [facility] - [facility] Office 07/20/2019 12:00:00 AM EDT [facility] ([facility]) Camila Moe, CHIEF EXECUTIVE OR MANAGING DIRECTOR: [address], [place] [address], Ph. Attender: Camila Moe [facility] - [facility] Office 07/20/2019 12:00:00 AM EDT [facility] ([facility]) Camila Moe, CHIEF EXECUTIVE OR MANAGING DIRECTOR: [address], [place] [address], Ph. Attender: Camila Moe [facility] [place] - [facility] Office 07/20/2019 12:00:00 AM EDT CHITRA ([facility]) Camila Moe, CHIEF EXECUTIVE OR MANAGING DIRECTOR: [address], [place] [address], Ph. Attender: Camila Moe RESIDENTIAL PEST CONTROL TECHNICIAN [place] - [facility] [place] - Main Office 07/20/2019 12:00:00 AM EDT CHITRA ([facility]) Camila Moe, CHIEF EXECUTIVE OR MANAGING DIRECTOR: [address], [place] [address], Ph. Attender: Camila Moe RESIDENTIAL PEST CONTROL TECHNICIAN [place] [facility] [place] - Main Office 07/20/2019 12:00:00 AM EDT CHITRA ([facility]) Camila Moe, CHIEF EXECUTIVE OR MANAGING DIRECTOR: [address], [place] [address], Ph. Attender: Camila Moe [facility]IDENTIAL [facility] Main Office 07/20/2019 12:00:00 AM EDT CHITRA ([facility]) Outpatient Attender: HECTOR VILLAGOMEZ [id number] 06/29/2019 12:00:00 AM EDT Arthropathic psoriasis, unspecified [facility] Arthropathic psoriasis, unspecified Outpatient Attender: NIMO HIGGINS MD 05/22/2019 03:06:00 P M [facility] Outpatient Attender: NIMO HIGGINS MD 05/12/2019 06:20:02 P M [facility] Outpatient Attender: HECTOR VILLAGOMEZ 05/11/2019 12:00:00 AM [facility] Outpatient Attender: HECTOR VILLAGOMEZ 05/11/2019 12:00:00 AM [facility] Outpatient Referrer: MD HECTOR VILLAGOMEZ 05/10/2019 09:23:00 AM EST [facility] Imaging Outpatient Referrer: MD HECTOR VILLAGOMEZ 2019 07:58:00 PM EST [facility] Radiology Imaging [address], [facility] [id number] 2019 12:00:00 AM EST eCW1 ([facility] Outpatient Attender: NIMO HIGGINS MD 04/28/2019 09:28:55 A M [facility] Outpatient Referrer: MD HECTOR VILLAGOMEZ 04/27/2019 01:39:00 PM [facility] Radiology Imaging Outpatient 04/27/2019 12:00:00 AM [facility] Outpatient Attender: NIMO HIGGINS MD 04/26/2019 02:48:02 P M [facility] Outpatient Attender: NIMO HIGGINS MD 04/26/2019 02:48:01 P M [facility] Outpatient Attender: NIMO HIGGINS MD 04/26/2019 02:48:00 P M [facility] Outpatient Attender: NIMO HIGGINS MD 04/26/2019 01:48:01 P M [facility] Camila Meo, CHIEF EXECUTIVE OR MANAGING DIRECTOR: [address], [place] [address], Ph. Attender: Camila Moe [facility] 04/25/2019 12:00:00 AM EST ATHE NA ([facility]) Camila Halllorettakaitlin, CHIEF EXECUTIVE OR MANAGING DIRECTOR: [address], [place] [address], Ph. Attender: Camila Moe [facility] 04/25/2019 12:00:00 AM EST ATHE NA ([facility]) Camila Ximena Moe, CHIEF EXECUTIVE OR MANAGING DIRECTOR: [address], [place] [address], Ph. Attender: Camila Moe [facility] 04/25/2019 12:00:00 AM EST ATHE NA ([facility]) Camila Ximena Moe, CHIEF EXECUTIVE OR MANAGING DIRECTOR: [address], [place] [address], Ph. Attender: Camila Moe [facility] 04/25/2019 12:00:00 AM EST ATHE NA ([facility]) Camila Moe, CHIEF EXECUTIVE OR MANAGING DIRECTOR: [address], [place] [address], Ph. Attender: Camila Moe [facility] 04/25/2019 12:00:00 AM EST ATHE NA ([facility]) Camila Moe, CHIEF EXECUTIVE OR MANAGING DIRECTOR: [address], [place] [address], Ph. Attender: Camila Moe [facility] 04/25/2019 12:00:00 AM EST ATHE NA ([facility]) Camila Moe, CHIEF EXECUTIVE OR MANAGING DIRECTOR: [address], [place] [address], Ph. Attender: Camila Moe [facility] 04/25/2019 12:00:00 AM EST ATHE NA ([facility]) Outpatient Attender: Nick Thomas 04/19/2019 12:00:[address] [address] 04/17/2019 12:00:00 AM EST eCW1 (Psychiatric hospital) Outpatient Attender: Nick Thomas 04/06/2019 12:00:00 AM [facility] Outpatient Attender: NIMO HIGGINS MD 03/24/2019 08:02:09 P M EST [facility] Camila Moe, CHIEF EXECUTIVE OR MANAGING DIRECTOR: [address], [place] [address], Ph. Attender: Camila Moe [facility] 03/20/2019 12:00:00 AM EST ATHE NA ([facility]) Camila Moe, CHIEF EXECUTIVE OR MANAGING DIRECTOR: [address], [place] [address], Ph. Attender: Camila Moe [facility] - [facility] 03/20/2019 12:00:00 AM EST ATHE NA ([facility]) Camila Moe, CHIEF EXECUTIVE OR MANAGING DIRECTOR: [address], [place] [address], Ph. Attender: aCmila Moe [facility] - [facility] 03/20/2019 12:00:00 AM EST ATHE NA ([facility]) Camila Moe, CHIEF EXECUTIVE OR MANAGING DIRECTOR: [address], [place] [address], Ph. Attender: Camila Moe [facility] - [facility] 03/20/2019 12:00:00 AM EST ATHE NA ([facility]) Camila Moe, CHIEF EXECUTIVE OR MANAGING DIRECTOR: [address], [place] [address], Ph. Attender: Camila Moe [facility] - [facility] 03/20/2019 12:00:00 AM EST ATHE NA ([facility]) Camila Moe, CHIEF EXECUTIVE OR MANAGING DIRECTOR: [address], [place] [address], Ph. Attender: Camila Moe [facility] - [facility] 03/20/2019 12:00:00 AM EST ATHE NA ([facility]) Camila Moe, CHIEF EXECUTIVE OR MANAGING DIRECTOR: [address], [place] [address], Ph. Attender: Camila Moe [facility] - [facility] 03/20/2019 12:00:00 AM EST ATHE NA ([facility]) Camilajami Moe, CHIEF EXECUTIVE OR MANAGING DIRECTOR: [address], [address], [place] [address], Ph. Attender: Camila Moe RESIDENTIAL [facility]ST CONTROL [facility] - [facility] - Main Office 03/20/2019 12:00:00 AM EST ATHE NA ([facility]) Outpatient Referrer: MD HECTOR VILLAGOMEZ 03/19/2019 05:14:00 PM [facility] Radiology Imaging Outpatient Attender: SERGIO BHAKTA MD 03/17/2019 12:00:00 AM EST [facility] Outpatient Attender: NIMO HIGGINS MD 03/15/2019 09:38:00 A M EST [facility] Outpatient Attender: HECTOR VILLAGOMEZ [id number] 01/12/2019 12:00:00 AM EDT - 01/12/2019 03:35:33 PM EDT Gastro-esophageal reflux disease without esophagitis [facility] Gastro-esophageal reflux disease without esophagitis Medications Medication Brand Name Start Date Product Form Dose Route Admi nistrative Instructions Pharmacy Instructions Status Indications Reaction Description Data Source(s) Prednisone 10 MG Oral Tablet predniSONE 10 MG Oral Tab let (DELTASONE) predniSONE 10 MG Oral Tablet (DELTASONE) 03/11/2020 12:00:00 AM EST active TAKE ONE TABLET BY MOUTH ONCE DAILY [facility] Cyclophosphamide 50 MG Oral Capsule Cycl ophosphamide 50 MG Oral Capsule (CYTOXAN) Cyclophosphamide 50 MG Oral Capsule (CYTOXAN) 02/23/20 20 12:00:00 AM EST 50 mg Oral active Take 50 mg by shabbir th daily [facility] Prednisone 5 MG Oral Tablet predniSONE 5 MG Oral Table t (DELTASONE) predniSONE 5 MG Oral Tablet (DELTASONE) 02/23/2020 12:00:00 AM EST active TAKE ONE TABLET BY MOUTH TWICE DAILY [facility] tramadol hydrochloride 50 MG Oral Tablet traMADol HCl 50 MG Oral Tablet (ULTRAM) traMADol HCl 50 MG Oral Tablet (ULTRAM) 02/19/2020 12:00:00 AM EST aborted TAKE ONE TABLET TWICE DAILY N EEDED MAX DAILY DOSE TWO TABLETS [facility] Baclofen 10 MG Oral Tablet Baclofen 10 MG Oral Tablet (LIORESAL) Baclofen 10 MG Oral Tablet (LIORESAL) 02/19/2020 12:00:00 AM EST active TAKE ONE TABLET BY MOUTH TWICE DAILY NEEDED [facility] Taltz 80 MG/ML Subcutaneous Solution Auto-injector (ixekizum ab) 2204-0967-08 01/23/2020 12:00:00 AM EDT active INJECT 1 SYRINGE INTO THE SKIN EVERY 28 DAYS [facility] Alendronic acid 70 MG Oral Tablet Alendr maikel Sodium 70 MG Oral Tablet (Fosamax) Alendronate Sodium 70 MG Oral Tablet (Fosamax) 01/03/2020 12:00: 00 AM EDT 70 mg Oral active Take 1 tablet by mouth e very 7 (seven) days [facility] Calcium Carbonate 1250 MG / Cholecalcife rol 200 UNT Oral Tablet [Os-Richelle 500 with D] Oscal 500/200 D-3 500-200 MG-UNIT Oral Tablet (calcium-vitamin D) Oscal 500/200 D-3 500-200 MG-UNIT Oral Tablet (calcium-vitamin D) 01/03/2020 12:00:00 AM EDT 1 {tbl} Oral active Take 1 tablet by mouth Two Times Daily [facility] Ixekizumab 80 MG/ML Subcutaneous Solution Auto-injector 1923 30 06/29/2019 12:00:00 AM EDT 80 mg Subcutaneous active Inject 80 mg into the skin every 28 (twenty-eight) days [facility] deferasirox 2.5 MG/ML Oral Suspension de ferasirox (EXJADE) 250 MG disintegrating tablet deferasirox (EXJADE) 250 MG disintegrating tablet 12/05 12:00:00 AM EDT aborted [facility] deferasirox 5 MG/ML Oral Suspension defe rasirox (EXJADE) 500 MG disintegrating tablet deferasirox (EXJADE) 500 MG disintegrating tablet 12/05 12:00:00 AM EDT aborted [facility] Ibuprofen 600 MG Oral Tablet ibuprofen (ADVIL,MOTRIN) 600 MG tablet ibuprofen (ADVIL,MOTRIN) 600 MG tablet 08/04/2018 12:00:00 AM EDT aborted TAKE ONE TABLET BY MOUTH THREE TIMES DAILY NEEDED [facility] Alendronic acid 70 MG Oral Tablet alendronate (FOSAMAX ) 70 MG tablet alendronate (FOSAMAX) 70 MG tablet 04/11/2018 12:00:00 AM EST 70 mg Oral active Take 1 tablet by mouth every 7 (seven) days [facility] Calcium Carbonate 1250 MG / Cholecalcife rol 200 UNT Oral Tablet calcium-vitamin D (OSCAL-500) 500-200 MG-UNIT per tablet calcium-vitamin D (OSCAL-500) 500-200 MG-UNIT per tablet 04/11/2018 12:00:00 AM EST 1 {tbl} Oral active Take 1 tablet by mouth Two Times Daily [facility] Doxycycline Monohydrate 100 MG Oral Caps ule doxycycline monohydrate 100 mg capsule doxycycline monohydrate 100 mg capsule completed doxycycline monohydrate 100 MG Oral Capsule [facility]RA ([facility]) Alendronic acid 70 MG Oral Tablet alendronate (FOSAMAX ) 70 MG tablet alendronate (FOSAMAX) 70 MG tablet aborted alendronate 70 mg tablet 1 tab weekly [facility] Ibuprofen 200 MG Oral Tablet ibuprofen (ADVIL,MOTRIN) 200 MG tablet ibuprofen (ADVIL,MOTRIN) 200 MG tablet 200 mg Oral aborted Take 200 mg by mouth every 6 (six) hours as needed for Pain [facility] amoxicillin/clavulanate potassium 875-125 mg tabs completed amoxicillin/clavulanate potassium 875-125 mg tabs [facility]RA ([facility]) amoxicillin/clavulanate potassium 875-125 mg tabs completed amoxicillin/clavulanate potassium 875-125 mg tabs CHITRA ([facility]) Calcium Carbonate 1250 MG / Cholecalcife rol 200 UNT Oral Tablet [place] Calcium-Vitamin D3 500 mg (1,250 mg)-200 unit tablet TAKE ONE TABLET BY MOUTH TWICE DAILY [place] Calcium-Vitamin D3 500 mg ( 1,250 mg)-200 unit tablet TAKE ONE TABLET BY MOUTH TWICE DAILY c ompleted calcium carbonate 1250 MG / cholecalciferol 200 UNT Oral Tablet [facility]RA ([facility]) ibuprofen 800 mg tabs completed ibuprofen 800 mg tabs [facility]RA ([facility]) Ibuprofen 600 MG Oral Tablet ibuprofen 600 mg tablet ibuprofen 6 00 mg tablet completed ibuprofen 600 MG Oral Tablet [facility]RA ([facility]) Cephalexin 500 MG Oral Capsule cephalexin 500 mg capsu le cephalexin 500 mg capsule completed Cephalexin 500 MG Oral Capsule [facility]RA ([facility]) prednisone 10 mg tabs completed prednisone 10 mg tabs [facility]RA ([facility]) Amoxicillin 875 MG / Clavulanate 125 MG Oral Tablet amoxicillin 875 mg-potassium clavulanate 125 mg tablet amoxicillin 875 mg-potassium clavulanate 125 mg tablet completed amoxicillin 875 MG / clavulanate 125 MG Oral Tablet CH[facility]RA ([facility]) omeprazole 20 mg cpdr completed omeprazole 20 mg cpdr [facility] ([facility]) ibuprofen 800 mg tabs completed ibuprofen 800 mg tabs [facility]RA ([facility]) baclofen 10 mg tabs completed baclofen 10 mg tabs [facility]RA ([facility]) cefuroxime axetil 500 mg tabs co mpleted cefuroxime axetil 500 mg tabs [facility]RA ([facility]) Doxycycline Monohydrate 100 MG Oral Caps ule doxycycline monohydrate 100 mg capsule doxycycline monohydrate 100 mg capsule completed doxycycline monohydrate 100 MG Oral Capsule [facility]RA ([facility]) Doxycycline Monohydrate 100 MG Oral Caps ule doxycycline monohydrate 100 mg capsule doxycycline monohydrate 100 mg capsule completed doxycycline monohydrate 100 MG Oral Capsule CHITRA ([facility]) Amoxicillin 875 MG / Clavulanate 125 MG Oral Tablet amoxicillin 875 mg-potassium clavulanate 125 mg tablet amoxicillin 875 mg-potassium clavulanate 125 mg tablet completed amoxicillin 875 MG / clavulanate 125 MG Oral Tablet [facility]RA ([facility]) prednisone 10 mg tabs completed prednisone 10 mg tabs [facility]RA ([facility]) omeprazole 20 mg cpdr completed omeprazole 20 mg cpdr [facility]RA ([facility]) cephalexin 500 mg caps completed cephalexin 500 mg caps [facility]RA ([facility]) acyclovir 400 mg tabs completed acyclovir 400 mg tabs [facility]RA ([facility]) Doxycycline Monohydrate 100 MG Oral Caps ule doxycycline monohydrate 100 mg capsule doxycycline monohydrate 100 mg capsule completed Doxycycline Monohydrate 100 MG Oral Capsule CH[facility]RA ([facility]) Cephalexin 500 MG Oral Capsule cephalexin 500 mg capsu le cephalexin 500 mg capsule completed cephalexin 500 MG Oral Capsule CHITRA ([facility]) Cephalexin 500 MG Oral Capsule cephalexin 500 mg capsu le cephalexin 500 mg capsule completed cephalexin 500 MG Oral Capsule [facility]RA ([facility]) gabapentin 600 mg tabs completed gabapentin 600 mg tabs [facility]RA ([facility]) doxycycline monohydrate 100 mg caps completed doxycycline monohydrate 100 mg caps [facility]RA ([facility]) doxycycline monohydrate 100 mg caps completed doxycycline monohydrate 100 mg caps [facility]RA ([facility]) albuterol sulfate hfa 108 (90 base) mcg/act aers completed albuterol sulfate hfa 108 (90 base) mcg/act aers [facility] ([facility]) cephalexin 500 mg caps completed cephalexin 500 mg caps [facility]RA ([facility]) omeprazole 20 mg cpdr completed omeprazole 20 mg cpdr [facility]RA ([facility]) gabapentin 300 MG Oral Capsule gabapentin 300 mg capsu le gabapentin 300 mg capsule completed gabapentin 300 MG Oral Capsule [facility]RA ([facility]) baclofen 10 mg tabs completed baclofen 10 mg tabs [facility]RA ([facility]) omeprazole 20 mg cpdr completed omeprazole 20 mg cpdr [facility]RA ([facility]) doxycycline hyclate 100 MG Oral Capsule doxycycline hy clate 100 mg capsule doxycycline hyclate 100 mg capsule com pleted doxycycline hyclate 100 MG Oral Capsule CH[facility]RA ([facility]) cephalexin 500 mg caps completed cephalexin 500 mg caps [facility]RA ([facility]) mupirocin 2 % oint completed m upirocin 2 % oint [facility] ([facility]) Taltz Autoinjector 80 mg/mL subcutaneous [id number] completed 1 ML ixekizumab 80 MG/ML Auto-Injector [Taltz] CHITRA ([facility]) doxycycline hyclate 100 MG Oral Capsule doxycycline hy clate 100 mg capsule doxycycline hyclate 100 mg capsule com pleted doxycycline hyclate 100 MG Oral Capsule CH[facility]RA ([facility]) Doxycycline Monohydrate 100 MG Oral Caps ule doxycycline monohydrate 100 mg capsule doxycycline monohydrate 100 mg capsule completed doxycycline monohydrate 100 MG Oral Capsule [facility]RA ([facility]) doxycycline hyclate 100 MG Oral Capsule doxycycline hy clate 100 mg capsule doxycycline hyclate 100 mg capsule com pleted doxycycline hyclate 100 MG Oral Capsule [facility]RA ([facility]) doxycycline hyclate 100 mg caps completed doxycycline hyclate 100 mg caps [facility]RA ([facility]) baclofen 10 mg tabs completed baclofen 10 mg tabs [facility]RA ([facility]) doxycycline hyclate 100 mg caps completed doxycycline hyclate 100 mg caps [facility] ([facility]) gabapentin 600 mg tabs completed gabapentin 600 mg tabs [facility]RA ([facility]) cefuroxime axetil 500 mg tabs co mpleted cefuroxime axetil 500 mg tabs [facility] ([facility]) doxycycline monohydrate 100 mg caps completed doxycycline monohydrate 100 mg caps [facility] ([facility]) ferrous fumarate 200 mg (65 mg iron)-vit C 25 mg tablet,extend release Take 1 tablet every day by oral route. [id number] 1 compl eted ferrous fumarate 200 mg (65 mg iron)-vit C 25 mg tablet,extend release [facility]RA ([facility]) amoxicillin/clavulanate potassium 875-125 mg tabs completed amoxicillin/clavulanate potassium 875-125 mg tabs [facility]RA ([facility]) acyclovir 400 mg tabs completed acyclovir 400 mg tabs [facility]RA ([facility]) omeprazole 20 mg cpdr completed omeprazole 20 mg cpdr GANADO ([facility]) Amoxicillin 875 MG / Clavulanate 125 MG Oral Tablet amoxicillin 875 mg-potassium clavulanate 125 mg tablet amoxicillin 875 mg-potassium clavulanate 125 mg tablet completed amoxici llin 875 MG / clavulanate 125 MG Oral Tablet [facility]RA ([facility]) acyclovir 400 mg tabs completed acyclovir 400 mg tabs [facility]RA ([facility]) 0.98 ML Etanercept 50 MG/ML Auto-Injecto r [Enbrel] Enbrel SureClick 50 mg/mL (1 mL) subcutaneous pen injector INJECT 1 PEN INTO THE SKIN EVERY 7 DAYS Enbrel SureClick 50 mg/mL (1 mL) subcutaneous pen injector INJECT 1 PEN INTO THE SKIN EVERY 7 DAYS completed 1 ML etanercept 50 MG/ML Auto-Injector [Enbrel] [facility]RA ([facility]) deferasirox 250 mg tbso completed deferasirox 250 mg tbso [facility] ([facility]) baclofen 10 mg tabs completed baclofen 10 mg tabs [facility]RA ([facility]) cefuroxime axetil 500 mg tabs co mpleted cefuroxime axetil 500 mg tabs [facility]RA ([facility]) tramadol hcl 50 mg tabs completed tramadol hcl 50 mg tabs [facility] ([facility]) mupirocin 2 % oint completed m upirocin 2 % oint [facility] ([facility]) deferasirox 500 mg tbso completed deferasirox 500 mg tbso [facility] ([facility]) gabapentin 600 mg tabs completed gabapentin 600 mg tabs [facility]RA ([facility]) doxycycline hyclate 100 MG Oral Capsule doxycycline hy clate 100 mg capsule doxycycline hyclate 100 mg capsule com pleted doxycycline hyclate 100 MG Oral Capsule [facility]RA ([facility]) doxycycline hyclate 100 mg caps completed doxycycline hyclate 100 mg caps [facility]RA ([facility]) gabapentin 300 MG Oral Capsule gabapentin 300 mg capsu le gabapentin 300 mg capsule completed gabapentin 300 MG Oral Capsule [facility]RA ([facility]) Cefuroxime 500 MG Oral Tablet cefuroxime axetil 500 mg tablet TAKE ONE TABLET BY MOUTH EVERY TWELVE HOURS FOR 10 DAYS cefuroxime axetil 500 mg tablet TAKE ONE TABLET BY MOUTH EVERY TWELVE HOURS FOR 10 DAYS completed cefuroxime 500 MG Oral Tablet [facility]RA ([facility]) doxycycline hyclate 100 mg caps completed doxycycline hyclate 100 mg caps [facility]RA ([facility]) cefuroxime axetil 500 mg tabs co mpleted cefuroxime axetil 500 mg tabs [facility]RA ([facility]) gabapentin 600 mg tabs completed gabapentin 600 mg tabs [facility]RA ([facility]) doxycycline hyclate 100 mg caps completed doxycycline hyclate 100 mg caps [facility] ([facility]) acyclovir 400 mg tabs completed acyclovir 400 mg tabs [facility]RA ([facility]) doxycycline hyclate 100 MG Oral Capsule doxycycline hy clate 100 mg capsule doxycycline hyclate 100 mg capsule com pleted doxycycline hyclate 100 MG Oral Capsule [facility]RA ([facility]) enbrel sureclick 50 mg/ml soaj c ompleted enbrel sureclick 50 mg/ml soaj [facility] ([facility]) cefuroxime axetil 500 mg tabs co mpleted cefuroxime axetil 500 mg tabs [facility]RA ([facility]) Sulfamethoxazole 800 MG / Trimethoprim 1 60 MG Oral Tablet sulfamethoxazole 800 mg-trimethoprim 160 mg tablet TAKE ONE TABLET BY MOUTH EVERY TWELVE HOURS sulfamethoxazole 800 mg-trimethoprim 160 mg tablet TAKE ONE TABLET BY MOUTH EVERY TWELVE HOURS completed sulfamethoxazole 800 MG / trimethoprim 160 MG Oral Tablet [facility]RA ([facility]) 0.2 ML Methotrexate 50 MG/ML Auto-Inject or methotrexate (PF) 10 mg/0.2 mL subcutaneous auto-injector Inject 0.2 mL every week by subcutaneous route. methotrexate (PF) 10 mg/0.2 mL subcutaneous auto-injector Inject 0.2 mL every week by subcutaneous route. 0.2 mL completed 0.2 ML methotrexate 50 MG/ML Auto-Injector [facility]RA ([facility]) gabapentin 300 MG Oral Capsule gabapentin 300 mg capsu le gabapentin 300 mg capsule completed gabapentin 300 MG Oral Capsule [facility] ([facility]) amoxicillin/clavulanate potassium 875-125 mg tabs completed amoxicillin/clavulanate potassium 875-125 mg tabs [facility] ([facility]) Ondansetron 8 MG Oral Tablet ondansetron HCl 8 mg tablet TAKE ONE TABLET BY MOUTH EVERY SIX HOURS NEEDED ondansetron HCl 8 mg tablet TAKE ONE TAB LET BY MOUTH EVERY SIX HOURS NEEDED comple dee ondansetron 8 MG Oral Tablet [facility] ([facility]) omeprazole 20 mg cpdr completed omeprazole 20 mg cpdr [facility] ([facility]) cefuroxime axetil 500 mg tabs co mpleted cefuroxime axetil 500 mg tabs [facility] ([facility]) cephalexin 500 mg caps completed cephalexin 500 mg caps [facility] ([facility]) taltz 80 mg/ml soaj completed taltz 80 mg/ml soaj [facility] ([facility]) Amoxicillin 875 MG / Clavulanate 125 MG Oral Tablet amoxicillin 875 mg-potassium clavulanate 125 mg tablet amoxicillin 875 mg-potassium clavulanate 125 mg tablet completed amoxici llin 875 MG / clavulanate 125 MG Oral Tablet [facility] ([facility]) doxycycline monohydrate 100 mg caps completed doxycycline monohydrate 100 mg caps [facility] ([facility]) gabapentin 600 mg tabs completed gabapentin 600 mg tabs [facility] ([facility]) Prednisone 10 MG Oral Tablet prednisone 10 mg tablet prednisone 10 mg tablet completed prednisone 10 MG Oral Tablet [facility] ([facility]) Prochlorperazine 10 MG Oral Tablet proch lorperazine maleate 10 mg tablet TAKE ONE TABLET BY MOUTH EVERY EIGHT HOURS NEEDED FOR NAUSEA AND VOMITING prochlorperazine maleate 10 mg tablet TAKE ONE TABLET BY MOUTH EVERY EIGHT HOURS NEEDED FOR NAUSEA AND VOMITING com pleted prochlorperazine 10 MG Oral Tablet [facility] ([facility]) baclofen 10 mg tabs completed baclofen 10 mg tabs [facility] ([facility]) Acyclovir 400 MG Oral Tablet acyclovir 4 00 mg tablet TAKE ONE TABLET BY MOUTH TWICE DAILY acyclovir 400 mg tablet TAKE ONE TABLET BY MOUTH TWICE DAILY completed acyclovir 400 MG Ora l Tablet [facility] ([facility]) Potassium Chloride 20 MEQ Extended Relea se Oral Tablet potassium chloride ER 20 mEq tablet,extended release TAKE ONE TABLET BY MOUTH ONCE DAILY potassium chloride ER 20 mEq tablet,extended release TAKE ONE TABLET BY MOUTH ONCE DAILY completed potassium chlo ride 20 MEQ Extended Release Oral Tablet [facility] ([facility]) gabapentin 300 MG Oral Capsule gabapentin 300 mg capsu le gabapentin 300 mg capsule completed gabapentin 300 MG Oral Capsule [facility] ([facility]) jadenu 360 mg tabs completed j adenu 360 mg tabs [facility] ([facility]) ibuprofen 800 mg tabs completed ibuprofen 800 mg tabs [facility] ([facility]) ibuprofen 800 mg tabs completed ibuprofen 800 mg tabs [facility] ([facility]) gabapentin 600 mg tabs completed gabapentin 600 mg tabs [facility] ([facility]) Prednisone 20 MG Oral Tablet prednisone 20 mg tablet TAKE ONE TABLET BY MOUTH TWICE DAILY prednisone 20 mg tablet TAKE ONE TABLET BY MOUTH TWICE DAILY completed prednisone 20 MG Ora l Tablet [facility] ([facility]) Cyclophosphamide 50 MG Oral Capsule cyclophosphamide 5 0 mg capsule cyclophosphamide 50 mg capsule complet ed cyclophosphamide 50 MG Oral Capsule [facility] ([facility]) mupirocin 2 % oint completed m upirocin 2 % oint [facility] ([facility]) cephalexin 500 mg caps completed cephalexin 500 mg caps [facility] ([facility]) ibuprofen 800 mg tabs completed ibuprofen 800 mg tabs [facility] ([facility]) deferasirox 360 mg tabs completed deferasirox 360 mg tabs [facility] ([facility]) acyclovir 400 mg tabs completed acyclovir 400 mg tabs [facility] ([facility]) amoxicillin/clavulanate potassium 875-125 mg tabs completed amoxicillin/clavulanate potassium 875-125 mg tabs [facility] ([facility]) prednisone 20 mg tabs completed prednisone 20 mg tabs [facility] ([facility]) Cephalexin 500 MG Oral Capsule cephalexin 500 mg capsu le cephalexin 500 mg capsule completed cephalexin 500 MG Oral Capsule [facility] ([facility]) potassium chloride er 20 meq tbcr completed potassium chloride er 20 meq tbcr [facility] ([facility]) Ibuprofen 800 MG Oral Tablet ibuprofen 8 00 mg tablet TAKE ONE TABLET BY MOUTH THREE TIMES DAILY ibuprofen 800 mg tablet TAKE ONE TABLET BY MOUTH THREE TIMES DAILY completed ibuprofen 800 MG Oral Tablet [facility] ([facility]) baclofen 10 mg tabs completed baclofen 10 mg tabs [facility] ([facility]) Ondansetron 4 MG Disintegrating Oral Tab let ondansetron 4 mg disintegrating tablet DISSOLVE ONE TABLET UNDER THE TONGUE EVERY SIX HOURS NEEDED ondansetron 4 mg disintegrating tablet DISSOLVE ONE TABLET UNDER THE TONGUE EVERY SIX HOURS NEEDED completed ondansetron 4 MG Disintegrating Oral Tablet [facility] ([facility]) prochlorperazine maleate 10 mg tabs completed prochlorperazine maleate 10 mg tabs [facility] ([facility]) deferasirox 360 MG Oral Tablet deferasirox 360 mg tabl et deferasirox 360 mg tablet completed deferasirox 360 MG Oral Tablet [facility] ([facility]) doxycycline hyclate 100 MG Oral Capsule doxycycline hy clate 100 mg capsule doxycycline hyclate 100 mg capsule com pleted doxycycline hyclate 100 MG Oral Capsule [facility] ([facility]) ferrous sulfate 325 MG Oral Tablet nicole us sulfate 325 mg (65 mg iron) tablet TAKE ONE TABLET BY MOUTH TWICE DAILY ferrous sulfate 325 mg (65 mg iron) tabl et TAKE ONE TABLET BY MOUTH TWICE DAILY c ompleted ferrous sulfate 325 MG Oral Tablet [facility] ([facility]) mupirocin 2 % oint completed m upirocin 2 % oint [facility] ([facility]) Doxycycline Monohydrate 100 MG Oral Caps ule doxycycline monohydrate 100 mg capsule doxycycline monohydrate 100 mg capsule completed doxycycline monohydrate 100 MG Oral Capsule [facility] ([facility]) doxycycline hyclate 100 mg caps completed doxycycline hyclate 100 mg caps [facility] ([facility]) taltz 80 mg/ml soaj completed taltz 80 mg/ml soaj [facility] ([facility]) Amoxicillin 875 MG / Clavulanate 125 MG Oral Tablet amoxicillin 875 mg-potassium clavulanate 125 mg tablet amoxicillin 875 mg-potassium clavulanate 125 mg tablet completed Amoxici llin 875 MG / Clavulanate 125 MG Oral Tablet [facility] ([facility]) doxycycline monohydrate 100 mg caps completed doxycycline monohydrate 100 mg caps [facility] ([facility]) albuterol sulfate HFA 90 mcg/actuation a erosol inhaler INHALE TWO PUFFS BY MOUTH FOUR TIMES DAILY NEEDED [id number] completed [id number] 200 ACTUAT albuterol 0.09 MG/ACTUAT Metered Dose Inhaler [facility] ([facility]) gabapentin 300 MG Oral Capsule gabapentin 300 mg capsu le gabapentin 300 mg capsule completed gabapentin 300 MG Oral Capsule [facility] ([facility]) mupirocin 2 % oint completed m upirocin 2 % oint [facility] ([facility]) cyclophosphamide 50 mg caps com pleted cyclophosphamide 50 mg caps [facility] ([facility]) Omeprazole 20 MG Delayed Release Oral Ca psule omeprazole 20 mg capsule,delayed release omeprazole 20 mg capsule,delayed release completed omeprazole 20 MG Delayed Release Oral Capsule [facility] ([facility]) amoxicillin/clavulanate potassium 875-125 mg tabs completed amoxicillin/clavulanate potassium 875-125 mg tabs [facility] ([facility]) Alendronic acid 70 MG Oral Tablet alendr maikel 70 mg tablet TAKE ONE TABLET BY MOUTH EVERY SEVEN DAYS alendronate 70 mg tablet TAKE ONE TABLET BY MOUTH EVERY SEVEN DAYS completed alendronic acid 70 MG Oral Tablet [facility] ([facility]) acyclovir 400 mg tabs completed acyclovir 400 mg tabs [facility] ([facility]) ibuprofen 800 mg tabs completed ibuprofen 800 mg tabs [facility] ([facility]) celecoxib 200 mg caps completed celecoxib 200 mg caps [facility] ([facility]) cephalexin 500 mg caps completed cephalexin 500 mg caps [facility] ([facility]) baclofen 10 mg tabs completed baclofen 10 mg tabs [facility] ([facility]) celecoxib 200 MG Oral Capsule celecoxib 200 mg capsule celec oxib 200 mg capsule completed celecoxib 200 MG Oral Capsule [facility] ([facility]) Cephalexin 500 MG Oral Capsule cephalexin 500 mg capsu le cephalexin 500 mg capsule completed cephalexin 500 MG Oral Capsule [facility] ([facility]) mupirocin 2 % oint completed m upirocin 2 % oint [facility] ([facility]) doxycycline monohydrate 100 mg caps completed doxycycline monohydrate 100 mg caps [facility] ([facility]) Amoxicillin 875 MG / Clavulanate 125 MG Oral Tablet amoxicillin 875 mg-potassium clavulanate 125 mg tablet amoxicillin 875 mg-potassium clavulanate 125 mg tablet completed amoxici llin 875 MG / clavulanate 125 MG Oral Tablet [facility] ([facility]) prednisone 5 mg tabs completed prednisone 5 mg tabs [facility] ([facility]) omeprazole 20 mg cpdr completed omeprazole 20 mg cpdr [facility] ([facility]) Insurance Providers Payer name Policy type / Coverage type Policy ID Covered republican ID Covered republican's relationship to gustafson Policy [place] Plan Information EMEDNY [id number] SP [id number] [id number] SP [id number] [facility] [id number] SP [id number] [facility] MEDICARE DUAL G [id number] Self [id number] MEDICAID M [id number] Self [id number] [facility]([place]CAID) O [id number] S [id number] MEDICAID M [id number] S [id number] MEDICARE [id number] SP [id number] T53 [facility] Secure Horizons P [id number] S [id number] Medicaid S [id number] S [id number] Medicaid [facility] Healthcare S D [id number] SELF [id number] [facility] Comm Plan Medicare F [id number] SELF [id number] [facility] [employer] P [id number] S [id number] MEDICARE [id number] SP [id number] T53 Medicaid S [id number] S [id number] T53 Medicare P [id number] S [id number] T53 MEDICAID [id number] SP [id number] Medicaid S [id number] S [id number] MEDICARE [id number] SP [id number] T53 MEDICARE A [id number] Self [id number] T53 MEDICARE C [id number] S [id number] T53 [facility] JE PART B C [id number] S [id number] Medicare P [id number] S [id number] T53 MEDICAID M [id number] Self [id number] [facility] MCDO [id number] SP [id number] ANSI-Medicaid [id number] ANSI-Medicaid [id number] ANSI-Medicare Part B [id number] ANSI-Medicare Part B [id number] ANSI-Medicaid [id number] ANSI-Medicaid [id number] ANSI-Medicaid [id number] ANSI-Medicaid [id number] ANSI-Medicare Part B [id number] ANSI-Medicaid [id number] ANSI-Medicaid [id number] ANSI-Medicare Part B [id number] MEDICAID [id number] SP [id number] ANSI-Medicare Part B [id number] ANSI-Medicaid [id number] ANSI-Medicaid [id number] [facility]AN [facility] [id number] SP [id number] ANSI-Medicare Part B [id number] ANSI-Medicaid [id number] ANSI-Medicaid [id number] MEDICAID [id number] SP [id number] ANSI-Medicaid [id number] ANSI-Medicaid [id number] ANSI-Medicare Part B [id number] Medicaid [facility] Part B [id number] Self [id number] Medicare [place] Primary [id number] Self [id number] ANSI-Medicaid [id number] ANSI-Medicaid [id number] ANSI-Medicare Part B [id number] ANSI-Medicaid [id number] ANSI-Medicare Part B [id number] ANSI-Medicaid [id number] ANSI-Medicaid [id number] ANSI-Medicare Part B [id number] ANSI-Medicaid [id number] ANSI-Medicaid [id number] ANSI-Medicare Part B [id number] ANSI-Medicaid [id number] ANSI-Medicaid [id number] ANSI-Medicare Part B [id number] ANSI-Medicaid [id number] ANSI-Medicaid [id number] ANSI-Medicare Part B [id number] ANSI-Medicaid [id number] ANSI-Medicaid [id number] ANSI-Medicare Part B [id number] ANSI-Medicaid [id number] ANSI-Medicaid [id number] ANSI-Medicare Part B [id number] ANSI-Medicaid [id number] Medicaid S [id number] S [id number] ANSI-Medicaid [id number] ANSI-Medicaid [id number] ANSI-Medicare Part B [id number] [employer] COMM[employer] PLAN MCDHMO [id number] SP [id number] [facility] I [id number] Self [id number] Managed Care - Community Plan [employer] P [id number] S [id number] [facility] I [id number] Self [id number] Managed Care - Community Plan [employer] P [id number] S [id number] ANSI-Medicaid [id number] Medicaid S [id number] S [id number] [employer] COMMUNITY PLAN MCDHMO [id number] SP [id number] [facility] Hmo Commercial [id number] Self [id number] Managed Care - Community Plan [employer] P [id number] S [id number] Medicaid S [id number] S [id number] [employer] Hmo Commercial Self Managed Care - Community Plan [employer] P [id number] S [id number] [facility](MCAID) O [id number] S [id number] Managed Care - Community Plan [employer] P [id number] S [id number] Medicaid S [id number] S [id number] Managed Care - Community Plan [employer] P [id number] S [id number] [employer] COMMUNITY PLAN MCDHMO [id number] SP [id number] Medicaid P [id number] S [id number] MEDICAID [id number] SP [id number] [facility] I [id number] Self [id number] MEDICAID M [id number] Self [id number] MEDICAID - CLINIC [id number] MEDICAID W [id number] S [id number] Problems, Conditions, and Diagnoses Code Display Name Description Problem Type Effective Dates Data Source(s) 443.9 Peripheral vascular disease, unspecified Peripheral vascular disease, unspecified 09/22/2019 03:07:39 PM EDT [facility] S82.855G Nondisplaced trimalleolar fr acture of left lower leg, subsequent encounter for closed fracture with delayed healing Nondisplaced trimalleolar fracture of left lower leg, subsequent encounter for closed fracture with delayed healing 09/22/2019 03:07:39 PM EDT [facility] [id number] Finding by site Finding by Site Problem 09/22/2019 12:0 0:00 AM EDT [facility] ([facility]) [id number] Closed trimalleolar fracture Closed Trimalleolar Fract ure Problem 09/22/2019 12:00:00 AM EDT [facility] ([facility]) 719.47 Ankle pain Ankle pain 08/31/2019 01:27:29 PM ED T [facility] [id number] Finding of ankle or foot Finding of Ankle or Foot Prob ike 08/31/2019 12:00:00 AM EDT [facility] ([facility]) 729.5 Pain in left lower limb Pain in left lower limb 04/26/2019 02:47:59 PM EST [facility] [id number] Finding by site Finding by Site Problem 04/26/2019 12:0 0:00 AM EST [facility] ([facility]) M06.9 Rheumatoid arthritis, unspecified Rheumatoid art hritis, unspecified Diagnosis 03/20/2020 09:14:31 AM [facility] M25.559 Pain in unspecified hip Pain in unspecified hip Diagno sis 03/07/2020 12:32:50 PM [facility] 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 Surgeries/Procedures Procedure Description Date Indications Data Source(s) SURGERY CASE REQUEST OUTSIDE FACILITY ONLY SURGERY CA SE REQUEST OUTSIDE FACILITY ONLY Routine 03/20/2020 10:26 AM EST Rheumatoid arthritis of left ankle, unspecified whether rheumatoid factor present 03/20/2020 10:26:02 AM EST Rheumatoid ar thritis of left ankle, unspecified whether rheumatoid factor present [facility] Rheumatoid arthritis of left ankle, unsp ecified whether rheumatoid factor present RADEX ANKLE COMPLETE MINIMUM 3 VIEWS 10/16/2019 12:00: 00 AM EDT [facility] ([facility]) RADEX ANKLE COMPLETE MINIMUM 3 VIEWS 09/29/2019 12:00: 00 AM EDT [facility] ([facility]) RADEX FOOT COMPLETE MINIMUM 3 VIEWS 09/29/2019 12:00:0 0 AM EDT [facility] ([facility]) Results ID Date Data Source [id number] 04/23/2020 05:19:00 PM EST [facility] Name Value Range Interpretation Code Description Data Erin rce(s) Supporting Document(s) SARS coronavirus 2 RNA [Presence] in Res piratory specimen by GAGANDEEP with probe detection NEGATIVE [facility] This lab was ordered by [facility] a nd reported by [facility]. ID Date Data Source [id number] 03/20/2020 01:32:44 PM EST [facility] Name Value Range Interpretation Code Description Data Erin rce(s) Supporting Document(s) Progress Note [facility] [id number]/SIKsyVPWbq3FoYOllXIi1IOsnNZAhP4JyCTS7rP3zDWU3YGvOUmScDlYpGiM4 [facility] [file] [id number] ID Date Data Source [id number] 03/07/2020 05:02:10 PM [facility] Name Value Range Interpretation Code Description Data Erin rce(s) Supporting Document(s) Progress Note [facility] [id number]/[id number]6mP4uAAC8LIdHKiHiIdOiGnJc lbm [file] AgICAgICAgICAgICAgICAgICAgICAgICAgICAgICAg ICAgICAgICAgICAgICAgICAgICAgICAgICAgICAgICAgICAgICAgICAgICAgICAgICAgICAgICAgICAg DQogICAgICAgICAgICAgICAgICAgICAgICAgICAgICAgICAgICAgICAgICAgICAgICAgICAgICAgICAg ICAgICAgICAgICAgICAgICAgICAgICAgICAgICAgIC AgICAgICAgICAgDQogICAgICAgICAgICAgICAgICAgICAgICAgICAgICAgICAgICAgICAgICAgICAgIC AgICAgICAgICAgICAgICAgICAgICAgICAgICAgICAgICAgICAgICAgICAgICAgICAgICAgDQogICAgIC AgICAgICAgICAgICAgICAgICAgICAgICAgICAgICAg ICAgICAgICAgICAgICAgICAgICAgICAgICAgICAgICAgICAgICAgICAgICAgICAgICAgICAgICAgICAg ICAgDQogICAgICAgICAgICAgICAgICAgICAgICAgICAgICAgICAgICAgICAgICAgICAgICAgICAgICAg ICAgICAgICAgICAgICAgICAgICAgICAgICAgICAgIC AgICAgICAgICAgICAgDQogICAgICAgICAgICAgICAgICAgICAgICAgICAgICAgICAgICAgICAgICAgIC AgICAgICAgICAgICAgICAgICAgICAgICAgICAgICAgICAgICAgICAgICAgICAgICAgICAgICAgDQogIC AgICAgICAgICAgICAgICAgICAgICAgICAgICAgICAg ICAgICAgICAgICAgICAgICAgICAgICAgICAgICAgICAgICAgICAgICAgICAgICAgICAgICAgICAgICAg ICAgICAgDQogICAgICAgICAgICAgICAgICAgICAgICAgICAgICAgICAgICAgICAgICAgICAgICAgICAg ICAgICAgICAgICAgICAgICAgICAgICAgICAgICAgIC AgICAgICAgICAgICAgICAgDQogICAgICAgICAgICAgICAgICAgICAgICAgICAgICAgICAgICAgICAgIC AgICAgICAgICAgICAgICAgICAgICAgICAgICAgICAgICAgICAgICAgICAgICAgICAgICAgICAgICAgDQ ogICAgICAgICAgICAgICAgICAgICAgICAgICAgICAg ICAgICAgICAgICAgICAgICAgICAgICAgICAgICAgICAgICAgICAgICAgICAgICAgICAgICAgICAgICAg FEMsKMQqHESrMOt2Z9knGAQtVZZxMH8hBOv3Pi7+YWzRZkQmMYW9fiCleW1OKC5ko4LoHDmoGFHdc6Ut BXh0KI8DVIRuRLngRZ5HYJzapv8HCOWnXQMltNBAh6 srZoJgJXD5GTZwRokoUA4QDXJrM6uubdYjSKUpDYYEGS9ZDnKsT3BdkH51WICSIm3+DQplbmRvYmoNCj HyCKVna9KoLOk8RI5IPLGwApwma7XrRcIbUPRRZPtwUO1NGEB8ZRLtOCFnZm1GPSKoB589tjGaHY7ZZa 9XDzCxNK0xjk6UFjAdPQCkIvcFLyv4JIibYF0LxARd YVfZcd0knlBimoIFc1EeyzGggSDUrpYbIFYqDWKclEnuJRFvNHDxWDQbQi8tKXTdTLMnGmHqSFCIWD7L IDAyHHCalNJcIJAzDMGHMW3MVWyaPEL9DDQpphUjkJIbJPtpTB7RJRMbqcFoTvOeSMOHSIo+Bi6AZO0z w1LxHRcsHINgFD0bqc7BLVhAKnSlE2J4jLZoZ0T6QZ jtQl2ZIWMgKOAlJeOkNJZOWIjsBR6DQZ4aozL9CS9QrVNhIQDrVUKqsWJtLSx9S57qvTPsKPdcUG4UKA A+Anel+Ba0HLIMpRKFoRUNwAyScHVTEGiLdL2CrY9LRk8DeP7MnFA79tZbecdTqAYvjNJ0LMB7oDVPtIW AVDW4EbMLdoD6cmhRqTfIbHQVCQaZwS98zpAAiEKHy QAYvZQKlHs8SDKLmV5HmjvMuxXtujcMyQUQyDZFPUM8CVWpjwgCmyGQqdNrePH72iYesQW6YAr2AQlIo CU7nwp9KlLFdAu8KJUAmKN7RPJZnYTVjDFJiXRW2GXLjZqFyGCjqPHYaMZThEWT0DYHwUZUgMP0JVzYa LDHkHKr2FDfbIRUdMJQcnv4EHBNgUJFtNVTpUaIuZA LsTGBpSDalGEVuSHDnYYL3BPAqJOXnDK0NSjDtWZKbIQYoRHwySBFrPVTmsr6NHSHjGDPeKzWuJxGcLY DbLAOqFHglVIAaINQ4GhrxWGWkIBEhKO8XNpTuBVPhVZE7UeezJGVzSSMple3GILRdKVIuCRI3PQHeUQ QrEKTeAClfDVDlRFY2AbM1AEKcBEEpWI1VFnJaYCSn GHK4GYuuHNNzBLErng7BPUNbYRAnBhLtWDGuPMLoFTZzSFurZPZkXPU6FcLzSMTsQQIrOH0OYjQqUUZs VIt7AzBmIYWwPIJdnq2GRITpZGTaYwx1FMDaFGKwSZAyRXlyPKPrASS5JTD1PGUaJEDeAI7KBvSxQJIs FSnrBuHyERTnCRUbgi6CXITdQNOgSRRsYSBaVUVvFU NrONzdQCMcQEL7Gtx0EIIiECPtYQ3ZBaRrMBZlNPg4NfusYJSoPRSwgv0GDEGyTTJpDMb8BkJkSKDqCK ZqNJibPPOmVFHrMZEeZRVfTVUrHG0CQvCyTCYzIrC8QXOrNOUcHLEwlr0DDETnIGXbZNLdKWYyKKBvOH ZjZHy1ijYxfTXaHVb5OQ7FB3TxawAiHwGJMo1Ve807 ILO9XTYyOc8FR7coYz5pCZEnXBTXZe0QJWo7FBR5Q9QfWGS0CTNyOeQdSJRlJ4BuZLCySrJhWpJzZmw+ XUq6Sao7XmNdJXTyAKFnZRZ7RUVgJbBdQkUbN0GuUzWbPH1kJYQDBd2+DQpzdGFydHhyZWYNCjIxODgy XXseEBNSNk0Z ID Date Data Source [id number] 03/07/2020 05:02:05 [facility] Name Value Range Interpretation Code Description Data Erin rce(s) Supporting Document(s) Progress Note [facility] OBBWOt3pFoNFGnYi80/TSQkpKDJsx7QqWKfwHXu8MHloMUTzZ9JeLAT7uC7mUVB0DKyGPiBlQnCwVbKt lbm [file] l+8oxO0OpV9SrRnpd35PZc5HlwDvsYI0gFG9EiqGTJbAMlhdGCvxd4keo3PNvaI2eHlHAcreajWV/jose antonio [file] AgICAgICAgICAgICAgICAgICAgICAgICAgICAgICAgICAgICAgICAgICAgICAgICAgICAgICAgICAgIC AgICAgICAgICAgICAgICAgICAgICANCiAgICAgICAgICAgICAgICAgICAgICAgICAgICAgICAgICAgIC AgICAgICAgICAgICAgICAgICAgICAgICAgICAgICAg ICAgICAgICAgICAgICAgICAgICAgICAgICAgICAgICANCiAgICAgICAgICAgICAgICAgICAgICAgICAg ICAgICAgICAgICAgICAgICAgICAgICAgICAgICAgICAgICAgICAgICAgICAgICAgICAgICAgICAgICAg ICAgICAgICAgICAgICANCiAgICAgICAgICAgICAgIC AgICAgICAgICAgICAgICAgICAgICAgICAgICAgICAgICAgICAgICAgICAgICAgICAgICAgICAgICAgIC AgICAgICAgICAgICAgICAgICAgICAgICANCiAgICAgICAgICAgICAgICAgICAgICAgICAgICAgICAgIC AgICAgICAgICAgICAgICAgICAgICAgICAgICAgICAg ICAgICAgICAgICAgICAgICAgICAgICAgICAgICAgICAgICANCiAgICAgICAgICAgICAgICAgICAgICAg ICAgICAgICAgICAgICAgICAgICAgICAgICAgICAgICAgICAgICAgICAgICAgICAgICAgICAgICAgICAg ICAgICAgICAgICAgICAgICANCiAgICAgICAgICAgIC AgICAgICAgICAgICAgICAgICAgICAgICAgICAgICAgICAgICAgICAgICAgICAgICAgICAgICAgICAgIC AgICAgICAgICAgICAgICAgICAgICAgICAgICANCiAgICAgICAgICAgICAgICAgICAgICAgICAgICAgIC AgICAgICAgICAgICAgICAgICAgICAgICAgICAgICAg ICAgICAgICAgICAgICAgICAgICAgICAgICAgICAgICAgICAgICANCiAgICAgICAgICAgICAgICAgICAg ICAgICAgICAgICAgICAgICAgICAgICAgICAgICAgICAgICAgICAgICAgICAgICAgICAgICAgICAgICAg ICAgICAgICAgICAgICAgICAgICANCiAgICAgICAgIC AgICAgICAgICAgICAgICAgICAgICAgICAgICAgICAgICAgICAgICAgICAgICAgICAgICAgICAgICAgIC AgICAgICAgICAgICAgICAgICAgICAgICAgICAgICANCjw/wBVzT7wpoMCenpT9C8ogNg6SWl5QZJ2zi0 TwZQDuWBrsjhJbTlvJIaTsMKFlKwyUJmq5XAxxNC0X cOGzE7MtO9ByUAayYS8YQOFvFCFxuJAtXNEtQYKwKfP2YBZxDQryOF9JoWDdUFegJUHwVLShCnGvQMLb NDEyQMEcLIFhYIYPFMLsLHBmCmBoAQAzMABaFZ1JYXIoU158daLlBv2BAe9DLtXoUO6krb7JOhYyPLFn ZovVTrx6URwxBJ7CeFZjaQWySfXkFIDLFnLhB2tjg8 OnQvRlNIINMVxqLF3Az0BphMUmJRu+My8FHI7ac5OiATikRuWsIH3axd8DWQeQFmOlI5YxoHwhIMBgx5 sxBIIwJA2hkXMpKEK7EKEbtsTqASMrhmXpKBQomnEdTPBmxwpxBOXBMfIioDNtCt0gZgNoZoObTAT7Gs IhAO1lITpaOF1JQYJ3SPmtLSRrKEOdJ8uQGsBlWFHs MnHnkOxeUP6CKvVtI0UnzwQoqGVaPuWiXJWPOe7+BQzpxqGaBadYAnK5RBDbn7AsLVj4PQ9HGCQeZZfy ZI8OIBKvfB2fADbdLB5TYdSnTGBfANXHPlJwT23nfUJyFZc9O6QeEvZyNQLlKuuaWDKyHHvdMaZuUNNv WyBdDQogID4+ID4+ZQmuFK9CPNjiltNzFZKzEn4KHY KwNGDxPV7zPNMaASIsK5B1sHpaOQAYTfRyF0rmslcxMB0iTMIkR473bNskphMmODIlDPZwLo9SHNXlFS M4CBAmnZRyAkEnPBGFXQijYW7KpHQrGLE7zA3kEChhCYNxXAXfB9yWOwPkcTkwNO32sGzgewTuwCOqHV o+Ef7YBT0ur9EsHUr8nfCcYYnvVXN9GYogPCLgUKHf MUDgIUS4GLX9OHQHYzUdWVCqSVPmITgeARLwWFLyrl9CQHHrMULjPgVnUnXxPKFpCGWnTRtmRCTqJDO4 PNQ2NRIoUXMoHB8MJtEsLPTeFAArUXdzVWBwLIErsb2FJUCdWULsSKU8YNYsIDDvUVHhBRnuRJAnSFI8 Gwx0NRAtLTXkBX0ZWgYtUBIqTNdjVoVaCUWlTHAzjg 0LCUSvLWXmFmW5ZMOzDWHpMDLzQFidQMHwOQL7RTAwEWWiMKDaFW6IVjZyLBPhKMWvAeBhAWScCQSsfx 8NCLEbFNUxOgH2JlDgFMFgSQBwEVfgYYGjJSTfNOW6UQTaIJSlNF2UCoYvOHTqCFO6UiZiINKgVUGxuk 1GTLQgDSEcFwGdPIKfPENlYAJhCBzwBOBfTSC8HJM2 GCMiAEJrLN7HPxPnRDLqPUb2RSSaRKCdLRTehq5OECKyXKCmKGrxHgSbDMPvMTRmFJocADRhPVIjUPf9 GNQwLTQzMV3VBuSkPBEaDoCdWJLcJHRtOIImtv1AJIFyQSRzZrY1SRCoHLPeAPOfZJxeOYVmVBUuUtSz ZRKaSPWlXE5UCcJjWRQzAaA2PjOhOEBvUWWejp9XSA EpSMAyZoh5LXJzBIQxJGGsJGgpLVEbDYU0NDv8JWVeDPEuIS6TNoFsJDLpLnJmIDFyWZXbEYVtfi1FTN CkQMQjLYB4HRMjSOEiKAXtTNuhQRXpEAF3LuqjCJQzSCByAU4TIdXnEKXnSyJ1FoSgAIPuXVFwmt1MXT CbVKYeKOthHdVuICEnBWLuONvqQSAkTFO6HHLrFSSu APEgUT4YTxOjHXFmAwC6NXiyNODjDZLbav9XPNTjOGVnThj6CUXxANHuHHJwKQjmFRSpGFD8CYMnDQYn LCIgDP5TYaYgSCHoXnuqUOguDGJgOTIisr2IxQQleKorhg8BOOnHZf1PaPjaXOM5ARmwCo8dmATuVEYk KPIZZy1DbmZhPPGwVYUIQLzdLCKwKENwLkTpT7DdWW TkVLT5ATH5ZqM1IEL9ZPB5MTY2EPXsTgZ7MqVlElO5FIO5C3AvNGMeIcrsBwhiCLU1AzNfJgW2DzM+IF 0gDQo+Cx6Sn5SlnzY9ewExIYwnTRB6By6ZCWZBN4KUKy== ID Date Data Source [id number] 01/09/2020 01:00:41 PM EDT [facility] Measurements & CalculationsHeight: 71 inches [...] TH replacement 2007right hand tendon rupture repair- 2014Family History:No known family historySocial/Personal History:Smoking History:Patient has [...] he has seen his Oncologist here in [place] and he is working on scheduling an [...] during this visit, including review of any eprz-moq-urufgkr medications, herbal therapies, and/or supplements.Allergy ReviewAllergy List [...] health is? FairAssessment & Plan Problems:Assessed:Impaired mobility (PMM84-M07.09) Assessment: Instructions: I think that a home [...] Orders:Adult - Ofc Vst, EST, Level III [CPT-04251] Medications:SHOWER CHAIR. 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 Pt reports pain / today in lower back (r side especially) and R hip. Pt requests refill on Omeprazole Name Value Range Interpretation Code Description Data Erin rce(s) Supporting Document(s) ID Date Data Source [id number] 01/04/2020 07:47:09 AM EDT [facility] Name Value Range Interpretation Code Description Data Erin rce(s) Supporting Document(s) Progress Note [facility] AYEAZg7xUsVVCcLp41/YPYkwOYQvs0CpYCuySOu0VCnbCHLxE5OnOWA2xZ5pCZW3NAzJJgKhDcJtZEUw [facility] [file] ItXD7XYWp= ID Date Data Source [id number] 01/03/2020 03:34:08 PM EDT [facility] Name Value Range Interpretation Code Description Data Erin rce(s) Supporting Document(s) Progress Note [facility] XGLWIs9uDoFFPbSd64/ASAwbQVDqp0OoCNtuBLu8GFtwYUSmE0MzENL9sC8qTGX7PDcORbZzJjZhCQNv lbm [file] QAM5sMTdXf4HIuH5GQTDSqPkCP4DAIe= ID Date Data Source [id number] 12/09/2019 02:36:00 PM EDT [facility] Name Value Range Interpretation Code Description Data Erin rce(s) Supporting Document(s) ESR 60 mm/hr 0-15 H [facility] HCT 29.8 % 42.0-52.0 L [facility] HGB 9.7 g/dL 13.5-17.5 L [facility] MCH 32.6 G/DL pg 32.0-36.5 N [facility] MCHC 37.2 PG % 27.0-33.0 H [facility] PLATELETS 308 10 10*3/mm3 150-450 N [facility] RBC 2.61 10 10*6/mm3 4.30-6.10 L [facility] RDW 15.7 % 11.5-14.5 H [facility] WBC TOTAL 7.2 4.0-10.0 N [facility] ID Date Data Source [id number] 12/09/2019 02:36:00 PM EDT [facility] Name Value Range Interpretation Code Description Data Erin rce(s) Supporting Document(s) BG FASTING 135 mg/dL 70-100 H [facility] CRP 2.39 mg/dL 0.00-0.30 H [facility] ID Date Data Source [id number] 12/08/2019 01:47:49 PM EDT [facility] Measurements & CalculationsHeight: 71 inches [...] [facility]: [facility]2019Have you been [...] told him to ask me.Pt was in [facility] 11/15-11/17 for gastroperesis (he claims it was food poisoning)HPI performed by: Mulugeta Ritter MD, December 08, 2019 2:22 PMTransitions of Care InboundProblem ReviewProblem List was reviewed and/or updated during this visit.Medication Reconciliation & ReviewMedication List was reviewed and/or updated during this visit, including review of any ezic-jnv-nhccgqr medications, herbal therapies, and/or supplements.Allergy ReviewAllergy List [...] is? PoorAssessment & Plan Problems:Assessed:Ankle pain (ICD-719.47) (HCM25-L48.579) Assessment: Instructions: Awaiting records from [facility] to make determinations about home health aide and shower chair. I am not sure of di agnosis or plan.Generalized anxiety disorder (ICD-300.02) (RQI16-A99.1) Assessment: Instructions: With PTSD and reportedly bipolar [...] Orders:Adult - Ofc Vst, EST, Level III [CPT-81753] Telepsychiatry Consult [CPT-12427] Mental Health Consult [CPT-86269] Follow-Up Return to clinic: 1-2 months for follow upMedications:OMEPRAZOLE 20 MG ORAL CAPSULE DELAYED RELEASE (OMEPRAZOLE) Take 1 po BID #60[Capsule] x 2 Route:ORAL Entered and Authorized by: Mulugeta Ritter MD Method used: Electronically to [facility]* (retail) [address] [place] [address] Note to Pharmacy: Route: ORAL; RxID: [id number] signed by Mulugeta Ritter MD on 12/08/2019 at 3:51 PM Name Value Range Interpretation Code Description Data Erin rce(s) Supporting Document(s) ID Date Data Source [id number] 11/18/2019 07:33:00 AM EDT [facility] Name Value Range Interpretation Code Description Data Erin rce(s) Supporting Document(s) HCT 29.5 % 42.0-52.0 L [facility] HGB 9.9 g/dL 13.5-17.5 L [facility] MCH 33.6 G/DL pg 32.0-36.5 N [facility] MCHC 37.5 PG % 27.0-33.0 H [facility] PLATELETS 225 10 10*3/mm3 150-450 N [facility] RBC 2.64 10 10*6/mm3 4.30-6.10 L [facility] RDW 14.6 % 11.5-14.5 H [facility] WBC TOTAL 6.3 4.0-10.0 N [facility] ID Date Data Source [id number] 11/17/2019 08:20:00 AM EDT [facility] Name Value Range Interpretation Code Description Data Erin rce(s) Supporting Document(s) HCT 32.1 % 42.0-52.0 L [facility] HGB 11.1 g/dL 13.5-17.5 L [facility] MCH 34.6 G/DL pg 32.0-36.5 N [facility] MCHC 37.9 PG % 27.0-33.0 H [facility] PLATELETS 241 10 10*3/mm3 150-450 N [facility] RBC 2.93 10 10*6/mm3 4.30-6.10 L [facility] RDW 14.7 % 11.5-14.5 H [facility] WBC TOTAL 12.0 4.0-10.0 H [facility] ID Date Data Source [id number] 11/15/2019 02:19:00 PM EDT [facility] Name Value Range Interpretation Code Description Data Erin rce(s) Supporting Document(s) HCT 35.1 % 42.0-52.0 L [facility] HGB 12.0 g/dL 13.5-17.5 L [facility] MCH 34.2 G/DL pg 32.0-36.5 N [facility] MCHC 37.7 PG % 27.0-33.0 H [facility] PLATELETS 314 10 10*3/mm3 150-450 N [facility] RBC 3.18 10 10*6/mm3 4.30-6.10 L [facility] RDW 14.6 % 11.5-14.5 H [facility] WBC TOTAL 12.9 4.0-10.0 H [facility] ID Date Data Source [id number] 11/15/2019 02:19:00 PM EDT [facility] Name Value Range Interpretation Code Description Data Erin rce(s) Supporting Document(s) APPEARANCE U HAZY CLEAR N [facility] SPEC GR URIN 1.021 1.002-1.035 [facility] UA COLOR YELLOW YELLOW [facility] ID Date Data Source [id number] 11/12/2019 01:44:52 PM EDT [facility], PCName: Flash ArmijoOB: 1980Provider: Alison Anglin: 11/09/2019 History of Present IllnessCHIEF COMPLAINT Left elbow pain.HISTORY OF PRESENT ILLNESSThe patient is a 39-year-old fgnl-zjur-gezmiljr male who comes in today for an [...] He states he does not see a carpenter streetcar. He notes he does not utilize rheumatoid [...] the elbow. PlanPLANThe patient is a 39-year-old qjdh-eyoj-gsyvvnvo male with left elbow pain consistent with [...] rce(s) Supporting Document(s) ID Date Data Source [id number] 10/23/2019 11:08:11 AM EDT [facility] Measurements & CalculationsHeight: 71 inches [...] (ER) or urgent care clinic? Yes - [facility] Have you seen another healthcare provider? 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 He thinks it has been 5 or six years since the carpenter streetcar last did a bone density. I have [...] during this visit, including review of any ekep-dnh-vijglme medications, herbal therapies, and/or supplements.Allergy ReviewAllergy List [...] is? PoorAssessment & Plan Problems:Assessed:Ankle pain (ICD-719.47) (PRP53-R41.579) Assessment: Instructions: Recheck as scheduled with Ortho.Discuss getting a repeat bone density with your carpenter streetcar.See pain clinic as scheduled.Stop taking Celebrex. Not only is this not helping you with your pain but in combination with prednisone you are at risk of issues like bleeding stomach ulcers.Patient Instructions/Care Plan: Ankle pain: Recheck as scheduled with Ortho.Discuss getting a repeat bone density with your carpenter streetcar.See pain clinic as scheduled.Stop taking Celebrex. Not [...] Orders:Adult - Ofc Vst, EST, Level III [CPT-19992] Name Value Range Interpretation Code Description Data Erin rce(s) Supporting Document(s) ID Date Data Source [id number] 09/27/2019 10:35:00 AM EDT [facility] Name Value Range Interpretation Code Description Data Erin rce(s) Supporting Document(s) HCT 34.2 % 42.0-52.0 L [facility] HGB 11.1 g/dL 13.5-17.5 L [facility] MCH 32.5 G/DL pg 32.0-36.5 N [facility] MCHC 37.8 PG % 27.0-33.0 H [facility] PLATELETS 294 10 10*3/mm3 150-450 N [facility] RBC 2.94 10 10*6/mm3 4.30-6.10 L [facility] RDW 15.5 % 11.5-14.5 H [facility] WBC TOTAL 6.9 4.0-10.0 N [facility] ID Date Data Source [id number] 09/22/2019 02:23:46 PM EDT [facility] Measurements & CalculationsHeight: 71 inches [...] during this visit, including review of any rcdo-jzu-uivgzby medications, herbal therapies, and/or supplements.Allergy ReviewAllergy List [...] for closed fracture with delayed healing (ICD-824.6) (KVS96-R54.855G)Peripheral vascular disease, unspecified (ICD-443.9) (ELI57-T78.9)Medications:CELECOXIB 200 MG ORAL CAPSULETALTZ 80 MG/ML SUBCUTANEOUS SOLUTION AUTO-INJECTORTRAMADOL HCL 50 MG ORAL TABLETONDANSETRON HCL 8 MG ORAL TABLETOMEPRAZOLE 20 MG ORAL CAPSULE DELAYED RELEASEB-12 1000 MCG ORAL TABLETCYCLOPHOSPHAMIDE 50 MG ORAL CAPSULEBACLOFEN 10 MG ORAL TABLETGABAPENTIN 600 MG ORAL TABLETIBUPROFEN 800 MG ORAL TABLETAllergies:No Known Allergies (updated 09/07/2019) Orders:Adult - Ofc Vst, EST, Level III [CPT-97718] Orthopaedics Consult [CPT-34884] Duplex scan of lower extremity arteries; complete bilateral study [CPT-22097] Name Value Range Interpretation Code Description Data Erin rce(s) Supporting Document(s) ID Date Data Source [id number] 09/13/2019 02:19:15 PM EDT [facility] In-House Blood TestsDate/Time Colle cted: September 13, 2019 2:19 PMTest Result Reference Range Normal ValueComments: blood draw done in offcie done in the right ac tolerated well Andres Harris ANNY, September 13, 2019 2:19 PMAssessment & Plan Orders:43212-Htz Vst-Est Level I [CPT-19142] 63834 - Venipuncture [CPT-95354] Name Value Range Interpretation Code Description Data Erin rce(s) Supporting Document(s) ID Date Data Source [id number] 09/13/2019 10:15:00 AM EDT [facility] Name Value Range Interpretation Code Description Data Erin rce(s) Supporting Document(s) URIC ACID 4.8 mg/dL 3.5-7.2 N [facility] ID Date Data Source [id number] 09/13/2019 10:15:00 AM EDT [facility] Name Value Range Interpretation Code Description Data Erin rce(s) Supporting Document(s) ESR 56 mm/hr 0-15 H [facility] ID Date Data Source [id number] 09/07/2019 05:05:34 PM EDT [facility] Measurements & CalculationsHeight: 71 inches [...] left foot pain History of Present Illness (HPI)IMallory MA, am scribing for, and in the presence of, Gene Parkinson DO.39 y/o male pt comes in the office with c/o chronic left elbow and left foot pain. Pt states his left foot and ankle feels like cracking and popping. Large amount of arthritis in the left foot and ankle. Denies [facility] rheumatoid arthritis. Pt states in 1998 he [...] during this visit, including review of any cywt-loy-plfehgr medications, herbal therapies, and/or supplements.Allergy ReviewAllergy List [...] PoorAssessment & Plan Assessment not SavedRheumatoid arthritis (VHA88-H37.9): check RA, ESR, ANAstart celebrexMedications:CELECOXIB 200 MG [...] - Ofc Vst, EST, Level III [CPT- 75440] X-Ray - Ankle, 2 views [CPT-79495] RHEUMATOID FACTOR QUANTITATIVE [CPT- 55237] YUE Screen [CPT-87873] URIC ACID BLOOD [CPT-84786] ESR [CPT-21400] Medications:CELECOXIB 200 MG ORAL CAPSULE (CELECOXIB) one cap po BID X 1day, then oe cap po QD #30[Capsule] x 3 Route:ORAL Entered and Authorized by: Gene Parkinson DO Method used: Electronically to [facility]* (retail) [address] [place] [address] Note to Pharmacy: Route: ORAL; RxID: [id number] signed by Gene Parkinson DO on 09/07/2019 at 5:48 PM Name Value Range Interpretation Code Description Data Erin rce(s) Supporting Document(s) ID Date Data Source [id number] 08/31/2019 01:03:30 PM EDT [facility] Measurements & CalculationsHeight: 71 inches [...] during this visit, including review of any xfvg-rhb-etqfgpk medications, herbal therapies, and/or supplements.Allergy ReviewAllergy List was reviewed and/or updated during this visit.Provider Calculated and Reviewed all Clinical Protocols for patient today. Review of Systems Musculoskeletal: Complains of joint pain, muscle aches. Care Management Plan Transitions of CareInboundRate Your HealthIn general, would you say your health is? PoorAssessment & Plan Problems:Added: Ankle pain (ICD-719.47) (ICD10- M25.579)Assessment not SavedAnkle pain (LGS00-L52.579): need to seeMedications:TALTZ 80 MG/ML SUBCUTANEOUS SOLUTION AUTO-INJECTORPREDNISONE 10 MG ORAL TABLETTRAMADOL HCL 50 MG ORAL TABLETONDANSETRON HCL 8 MG ORAL TABLETOMEPRAZOLE 20 MG ORAL CAPSULE DELAYED RELEASEB-12 1000 MCG ORAL TABLETCYCLOPHOSPHAMIDE 50 MG ORAL CAPSULEBACLOFEN 10 MG ORAL TABLETGABAPENTIN 600 MG ORAL TABLETIBUPROFEN 800 MG ORAL TABLETAllergies:No Known Allergies (updated 12/29/2017) Orders:Telephone E&M 5-10 min Medical Discussion [CPT- 75353] Vaccines Administered/Entered:Vaccination Group: InfluenzaHistorical Source: Historical information - from patientSeries: 2 NOT GIVENVaccination: Flucelvax Quadrivalent PF (4y+) AdultReason Not Given: Patient decisionEntered Date: 08/31/2019 12:00 AMComments: PT states he got it the pharmacyEntered by: Omkar Lora LPN Name Value Range Interpretation Code Description Data Erin rce(s) Supporting Document(s) ID Date Data Source [id number] 06/29/2019 05:31:20 PM EDT [facility] Name Value Range Interpretation Code Description Data Erin rce(s) Supporting Document(s) Progress Note [facility] FUWJPh3rFoLMTmLq54/JDPerQTWfu7LyRYdiPMn3CRixZFFeG0ZfTKM7eF3sQDP8UKdUVmRhGyBeGeJ1 [facility] [file] xQQoSk7OFwZvQbKSFxVzIF9CPOl= ID Date Data Source [id number] 06/29/2019 05:31:15 PM EDT [facility] Name Value Range Interpretation Code Description Data Erin rce(s) Supporting Document(s) Progress Note [facility] BJVKFm8ePvCXFlJh35/NDJrkPBIjd2BcTThnRRg3HOgnXNDlV1LjAGT8xF3aRTS2WTdPSwTgZfMySyZ8 lbm [file] AgICAgICAgICAgICAgICAgICAgICAgICAgICAgICAgICAgICAgICAgICAgICAgICAgICAgICAgICAgIC AgICAgICAgICAgICAgICAgICAgICAgICAgICAgICAgICAgDQogICAgICAgICAgICAgICAgICAgICAgIC AgICAgICAgICAgICAgICAgICAgICAgICAgICAgICAg ICAgICAgICAgICAgICAgICAgICAgICAgICAgICAgICAgICAgICAgICAgICAgDQogICAgICAgICAgICAg ICAgICAgICAgICAgICAgICAgICAgICAgICAgICAgICAgICAgICAgICAgICAgICAgICAgICAgICAgICAg ICAgICAgICAgICAgICAgICAgICAgICAgICAgDQogIC AgICAgICAgICAgICAgICAgICAgICAgICAgICAgICAgICAgICAgICAgICAgICAgICAgICAgICAgICAgIC AgICAgICAgICAgICAgICAgICAgICAgICAgICAgICAgICAgICAgDQogICAgICAgICAgICAgICAgICAgIC AgICAgICAgICAgICAgICAgICAgICAgICAgICAgICAg ICAgICAgICAgICAgICAgICAgICAgICAgICAgICAgICAgICAgICAgICAgICAgICAgDQogICAgICAgICAg ICAgICAgICAgICAgICAgICAgICAgICAgICAgICAgICAgICAgICAgICAgICAgICAgICAgICAgICAgICAg ICAgICAgICAgICAgICAgICAgICAgICAgICAgICAgDQ ogICAgICAgICAgICAgICAgICAgICAgICAgICAgICAgICAgICAgICAgICAgICAgICAgICAgICAgICAgIC AgICAgICAgICAgICAgICAgICAgICAgICAgICAgICAgICAgICAgICAgDQogICAgICAgICAgICAgICAgIC AgICAgICAgICAgICAgICAgICAgICAgICAgICAgICAg ICAgICAgICAgICAgICAgICAgICAgICAgICAgICAgICAgICAgICAgICAgICAgICAgICAgDQogICAgICAg ICAgICAgICAgICAgICAgICAgICAgICAgICAgICAgICAgICAgICAgICAgICAgICAgICAgICAgICAgICAg ICAgICAgICAgICAgICAgICAgICAgICAgICAgICAgIC AgDQogICAgICAgICAgICAgICAgICAgICAgICAgICAgICAgICAgICAgICAgICAgICAgICAgICAgICAgIC QwPEIyKSZvUWQcPFPdQFCfXVFwYLZbCXAoSEAdBFQcFNXoFGZlFDYzFHWrJBm6M4yiBADtRNOgOU8hUU d3Jz8+VCwJTgWkWRS1wnYvyF4AMA8zy9WxVVlqZREj u8XnQBu5VH3CHIGpBKizKD4WZBcqdf9YKHGqZQVpdCVYx3oyMmOwFTL0LWRvSlwaGI1RXIWwP0cqfdHj KYLhFLHBNCgtCJBDNWcgRSEVSAKhIBAgKsZaLfHzIIPfZFEaZSGCUA8GOaByO1KilP96RGQUSy9+DQpl ybSdHmtOTzT9PAXas4HxYRf7IZ9YKPToGcxxg2GtGp EdSLAMOCikFI6KJRL6MTE7YFSiKo2RGDQmG610hcSrMU4SXi0MGmWhLR1cwl8TUcVlBNSjQnvTDzn1OY meLE7ZuOAoDXwWxj1jydFudvLRd4TqwmRorQVQYIHzvOPeCLfzkcSIxPOszaI4WO8bIM8EYtWtQCIcKi 1uDg5tIELnDJPdNjGfPOBRLB9CDBZxFNLtyICiFFMh EQEFSH4OWXneFQV8YECshcNwaFFnTOvgVI2TMLDgkaCnRwCjUOSLMZw+Vb1KQY9cs4KpHOzwIrKpRQ6c xq3VNAfKAlYvU2S5fIHdP0F3UGbcRl6EMEOlUMVzTgOlEBGFYSxeAA9PWR6ebfG5OX8FpHQiIAZyVEJf gMWsAZh8F61tfERgUJrqSE6IOSQ+Anel+Ac2YHTEfWM LlBCYuBzGbGNKNSjAzP7CmG9LEr4LqH2FzOX64cQntdbNcQAvcTX2RWT4gGPMoDOMOFS2GkKKaeZ9nxo WoGTCoNJJEAdFoL17ndLVgMFXtAEF6LOLxFl5VIEKdT9JaarWfwAuzmqNrGOVdFQFLYG2PQCemgwSemS IxzUpyJP90qEigFI9SVa1LVxYoFM1aiv4QlEOeRn4B ZEVmSM3QWCZkBBRwYKCyWXH1LMXmTmGjAQpvPDJjKQAqVGT0RUZpBNZkGZ4NRxJrSBTxYqTvXaTsFXDu SYAvao1QCHSjAMPuPta1ELTrFWViTCBzEGlzCGSlQPEdYHK8JQWcLPBeNR3WDgNpNIEyUIK4OjRoMFZe QPWrdx4CPDYdKVOaSPY0OLSpXSVwXRDnIXffZNKgYO V6FHX1YUUoEYDnWF2LEyHiSKWqNST8MoDzRZPcJYQyjn0HKHYxBOIlEWV5BlXgDLDeFBFsSSbhZBMiVL J4Voe6YYEzWYWeHD7UIkJuQYMfQLZrEzPdBXRtHRDxvq7WHLIiCINpZwOjSNGeZSWsRHHlYKoiZVQlBO A6OOT2YVSjIXHmSX6PKaSjIURnVFlvXUCaYOVtYRXw vd2ZTOZvGFTsDZPvTuEdCJWnRVAcYAqpAYEoPJZ0VFLbWYEzHABiMK0QRbGyVQZtQAe8WOFmOJPoXKVa kt4YANXqGFCdQCDmOMNiZMVnJHElHRggMLKzTGF4LjoeWHMsZZUcGW1TZoBlVRLrRrE8AXBbCIAbJGZl oz9XNQRqKEFpMQa5ECFaSEQdXRVsOEhqLYRsGTQcZB AaLLArHTJiOT4XRbZtJIHoVdM7AyAmZPVqZTRtpc3FLMGgENCbNlx0AoHiBGCvBDYdEJnfJGAvDKLxWN k8ATVsSWFnCR1CScZwKJYeTdIrZVZpDFGcWRIjld4VPOCuCIReFiX9QwOgUTWtUFGtLQodCZLmLIM8PI U9YADlAQJfXL3IRpHpYWGoQlG0JIggJZYhZJQpci8T GJUdHLCcFDa3HXMiWSApJTHvHVvuILQlTEV9WcKtISDeDBDfGU5WXzGgIODbBbD0XpAyWAVzFAXnrd9G WEAzMTPhRxG6GDDtGABfNRMcCGchQPCkQTK7AOXgJEDvZODvCR6VAhNxKTUfNsseXJQsWTTeBNEqge9S JNAcBABvWOY6UeAlSMNbWSMtZDhxAURcAXW2IpXlZX KgBYXdCP5DPaPgIRhpWSZXIhr7JKyoA9x5YCQrKO1JV8Ajx5PrNpdqVOQUUVjdVM4dysAiUACxTy2MF9 aDTsrmXOVoKfIqK2R6EhPcEra7KUPgMrz4OyB2XkmuClU3Np3rLBNoWfMnKTS5ILtpDWJiVAypAYPkIc d2SeVaTDFsANraHjMfQW5DOz3FAzW0GXO8mMGhXy2TYri3EpLZFgDiTT1WCRl= ID Date Data Source [id number] 04/26/2019 02:01:29 PM [facility] Measurements & CalculationsHeight: 71 inches (5 [...] He also sees a pain specialist. 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 Possibly muscular, [...] PRNOrders:Adult - Ofc Vst, EST, Level III [[id number]] Name Value Range Interpretation Code Description Data Erin rce(s) Supporting Document(s) Procedure Social History Code Duration Value Status Description Data Source(s ) Alcohol intake 03/20/2020 12:00:00 AM EST Current non-d bernarda of alcohol (finding) completed Current non-drinker of alcohol (finding) [facility] Tobacco use and exposure 03/20/2020 12:00:00 AM EST Never used co mpleted Never used [facility] Cigarette pack-years 03/20/2020 12:00:00 AM EST UNK completed [facility] Cigarettes smoked current (pack per day) - Reported 03/20/20 12:00:00 AM EST UNK completed [facility] Smoking 03/20/2020 12:00:00 AM EST Former smoker completed Former smoker [facility] Vital Signs ID Date Data Source UNK Name Value Range Interpretation Code Description Data Source(s) Systolic blood pressure 119 mm[Hg] 119 mm[Hg] A THENA ([facility]) Body height 71 [in_i] 71 [in_i] CHITRA ([facility]) Diastolic blood pressure 71 mm[Hg] 71 mm[Hg] CHITRA ([facility]) Body height 71 [in_i] 71 [in_i] CHITRA ([facility]) Body height 71 [in_i] 71 [in_i] CHITRA ([facility]) Body height 71 [in_i] 71 [in_i] CHITRA ([facility]) Body height 71 [in_i] 71 [in_i] CHITRA ([facility]) Body weight 3248 [oz_av] 3248 [oz_av] CHITRA ([facility]) Systolic blood pressure 112 mm[Hg] 112 mm[Hg] A THENA ([facility]) Body height 71 [in_i] 71 [in_i] CHITRA ([facility]) Diastolic blood pressure 75 mm[Hg] 75 mm[Hg] CHITRA ([facility]) Body weight 3160 [oz_av] 3160 [oz_av] CHITRA ([facility]) Systolic blood pressure 123 mm[Hg] 123 mm[Hg] [facility] Body height 71 [in_i] 71 [in_i] CHITRA ([facility]) Diastolic blood pressure 87 mm[Hg] 87 mm[Hg] CHITRA ([facility]) Body weight 3216 [oz_av] 3216 [oz_av] CHITRA ([facility]) Systolic blood pressure 115 mm[Hg] 115 mm[Hg] [facility] Body height 71 [in_i] 71 [in_i] CHITRA ([facility]) Diastolic blood pressure 68 mm[Hg] 68 mm[Hg] CHITRA ([facility]) Body height 71 [in_i] 71 [in_i] CHITRA ([facility]) Body weight 3328 [oz_av] 3328 [oz_av] CHITRA ([facility]) Systolic blood pressure 110 mm[Hg] 110 mm[Hg] [facility] Body height 71 [in_i] 71 [in_i] CHITRA ([facility]) Diastolic blood pressure 76 mm[Hg] 76 mm[Hg] CHITRA ([facility]) Body weight 198 [lb_av] 198 [lb_av] CHITRA ([facility]) Systolic blood pressure 130 mm[Hg] 130 mm[Hg] A THENA ([facility]) Body mass index (BMI) [Ratio] 27.6 kg/m2 27.6 k g/m2 CHITRA ([facility]) Body height 71 [in_i] 71 [in_i] CHITRA ([facility]) Diastolic blood pressure 79 mm[Hg] 79 mm[Hg] CHITRA ([facility]) Body weight 198 [lb_av] 198 [lb_av] CHITRA ([facility]) Systolic blood pressure 130 mm[Hg] 130 mm[Hg] A THENA ([facility]) Body mass index (BMI) [Ratio] 27.6 kg/m2 27.6 k g/m2 CHITRA ([facility]) Body height 71 [in_i] 71 [in_i] CHITRA ([facility]) Diastolic blood pressure 79 mm[Hg] 79 mm[Hg] CHITRA ([facility]) Body weight 198 [lb_av] 198 [lb_av] CHITRA ([facility]) Systolic blood pressure 130 mm[Hg] 130 mm[Hg] A THENA ([facility]) Body mass index (BMI) [Ratio] 27.6 kg/m2 27.6 k g/m2 CHITRA ([facility]) Body height 71 [in_i] 71 [in_i] CHITRA ([facility]) Diastolic blood pressure 79 mm[Hg] 79 mm[Hg] CHITRA ([facility]) Body weight 198 [lb_av] 198 [lb_av] CHITRA ([facility]) Systolic blood pressure 130 mm[Hg] 130 mm[Hg] A THENA ([facility]) Body mass index (BMI) [Ratio] 27.6 kg/m2 27.6 k g/m2 CHITRA ([facility]) Body height 71 [in_i] 71 [in_i] CHITRA ([facility]) Diastolic blood pressure 79 mm[Hg] 79 mm[Hg] CHITRA ([facility]) Body weight 198 [lb_av] 198 [lb_av] CHITRA ([facility]) Systolic blood pressure 130 mm[Hg] 130 mm[Hg] A THENA ([facility]) Body mass index (BMI) [Ratio] 27.6 kg/m2 27.6 k g/m2 CHITRA ([facility]) Body height 71 [in_i] 71 [in_i] CHITRA ([facility]) Diastolic blood pressure 79 mm[Hg] 79 mm[Hg] CHITRA ([facility]) Body weight 198 [lb_av] 198 [lb_av] CHITRA ([facility]) Systolic blood pressure 130 mm[Hg] 130 mm[Hg] A THENA ([facility]) Body mass index (BMI) [Ratio] 27.6 kg/m2 27.6 k g/m2 CHITRA ([facility]) Body height 71 [in_i] 71 [in_i] CHITRA ([facility]) Diastolic blood pressure 79 mm[Hg] 79 mm[Hg] CHITRA ([facility]) Body weight 198 [lb_av] 198 [lb_av] CHITRA ([facility]) Systolic blood pressure 130 mm[Hg] 130 mm[Hg] A THENA ([facility]) Body mass index (BMI) [Ratio] 27.6 kg/m2 27.6 k g/m2 CHITRA ([facility]) Body height 71 [in_i] 71 [in_i] CHITRA ([facility]) Diastolic blood pressure 79 mm[Hg] 79 mm[Hg] CHITRA ([facility]) Body weight 198 [lb_av] 198 [lb_av] CHITRA ([facility]) Systolic blood pressure 126 mm[Hg] 126 mm[Hg] A THENA ([facility]) Body mass index (BMI) [Ratio] 27.6 kg/m2 27.6 k g/m2 CHITRA ([facility]) Body height 71 [in_i] 71 [in_i] CHITRA ([facility]) Diastolic blood pressure 79 mm[Hg] 79 mm[Hg] CHITRA ([facility]) Body weight 198 [lb_av] 198 [lb_av] CHITRA ([facility]) Systolic blood pressure 126 mm[Hg] 126 mm[Hg] A THENA ([facility]) Body mass index (BMI) [Ratio] 27.6 kg/m2 27.6 k g/m2 CHITRA ([facility]) Body height 71 [in_i] 71 [in_i] CHITRA ([facility]) Diastolic blood pressure 79 mm[Hg] 79 mm[Hg] CHITRA ([facility]) Body weight 198 [lb_av] 198 [lb_av] CHITRA ([facility]) Systolic blood pressure 126 mm[Hg] 126 mm[Hg] A THENA ([facility]) Body mass index (BMI) [Ratio] 27.6 kg/m2 27.6 k g/m2 CHITRA ([facility]) Body height 71 [in_i] 71 [in_i] CHITRA ([facility]) Diastolic blood pressure 79 mm[Hg] 79 mm[Hg] CHITRA ([facility]) Body weight 198 [lb_av] 198 [lb_av] CHITRA ([facility]) Systolic blood pressure 126 mm[Hg] 126 mm[Hg] A THENA ([facility]) Body mass index (BMI) [Ratio] 27.6 kg/m2 27.6 k g/m2 CHITRA ([facility]) Body height 71 [in_i] 71 [in_i] CHITRA ([facility]) Diastolic blood pressure 79 mm[Hg] 79 mm[Hg] CHITRA ([facility]) Body weight 198 [lb_av] 198 [lb_av] CHITRA ([facility]) Systolic blood pressure 126 mm[Hg] 126 mm[Hg] A THENA ([facility]) Body mass index (BMI) [Ratio] 27.6 kg/m2 27.6 k g/m2 CHITRA ([facility]) Body height 71 [in_i] 71 [in_i] CHITRA ([facility]) Diastolic blood pressure 79 mm[Hg] 79 mm[Hg] CHITRA ([facility]) Body weight 198 [lb_av] 198 [lb_av] CHITRA ([facility]) Systolic blood pressure 126 mm[Hg] 126 mm[Hg] A THENA ([facility]) Body mass index (BMI) [Ratio] 27.6 kg/m2 27.6 k g/m2 CHITRA ([facility]) Body height 71 [in_i] 71 [in_i] CHITRA ([facility]) Diastolic blood pressure 79 mm[Hg] 79 mm[Hg] CHITRA ([facility]) Body weight 198 [lb_av] 198 [lb_av] CHITRA ([facility]) Systolic blood pressure 126 mm[Hg] 126 mm[Hg] A THENA ([facility]) Body mass index (BMI) [Ratio] 27.6 kg/m2 27.6 k g/m2 CHITRA ([facility]) Body height 71 [in_i] 71 [in_i] CHITRA ([facility]) Diastolic blood pressure 79 mm[Hg] 79 mm[Hg] CHITRA ([facility]) Body weight 198 [lb_av] 198 [lb_av] CHITRA ([facility]) Systolic blood pressure 126 mm[Hg] 126 mm[Hg] A THENA ([facility]) Body mass index (BMI) [Ratio] 27.6 kg/m2 27.6 k g/m2 CHITRA ([facility]) Body height 71 [in_i] 71 [in_i] CHITRA ([facility]) Diastolic blood pressure 79 mm[Hg] 79 mm[Hg] CHITRA ([facility]) ID Date Data Source [id number] 04/04/2020 12:37:45 PM [facility] Name Value Range Interpretation Code Description Data Source(s) WEIGHT RECORDED 193 lb 193 lb [facility] Body height Measured 71 in 71 in [facility] ID Date Data Source [id number] 03/11/2020 04:20:24 PM [facility] Name Value Range Interpretation Code Description Data Source(s) Body height Measured 70.98 in 70.98 in [facility] ID Date Data Source [id number] 02/28/2019 02:31:17 PM [facility] Name Value Range Interpretation Code Description Data Source(s) WEIGHT RECORDED 204 lb 204 lb [facility] Body height Measured 70.98 in 70.98 in [facility] Patient Treatment Plan of Care Planned Activity Planned Date Details Description Data Source (s) Prednisone 10 MG Oral Tablet 03/11/2020 12:00:00 AM [facility] Cyclophosphamide 50 MG Oral Capsule 02/23/2020 12:00:00 AM [facility] Prednisone 5 MG Oral Tablet 02/23/2020 12:00:00 AM [facility] Baclofen 10 MG Oral Tablet 02/19/2020 12:00:00 AM [facility] tramadol hydrochloride 50 MG Oral Tablet 02/19/2020 12:00:00 AM [facility] Taltz 80 MG/ML Subcutaneous Solution Auto-injector (ix ekizumab) 01/23/2020 12:00:00 AM [facility] Calcium Carbonate 1250 MG / Cholecalcife rol 200 UNT Oral Tablet [Os-Richelle 500 with D] 01/03/2020 12:00:00 AM [facility] Alendronic acid 70 MG Oral Tablet 01/03/2020 12:00:00 AM [facility] Ixekizumab 80 MG/ML Subcutaneous Solution Auto-injecto r 06/29/2019 12:00:00 AM [facility] deferasirox 2.5 MG/ML Oral Suspension 12/23/2018 12:00:00 AM [facility] deferasirox 5 MG/ML Oral Suspension 12/23/2018 12:00:00 AM [facility] Ibuprofen 600 MG Oral Tablet 08/04/2018 12:00:00 AM [facility] Calcium Carbonate 1250 MG / Cholecalciferol 200 UNT Or al Tablet 04/11/2018 12:00:00 AM [facility] Alendronic acid 70 MG Oral Tablet 04/11/2018 12:00:00 AM [facility] Alendronic acid 70 MG Oral Tablet [facility] Ibuprofen 200 MG Oral Tablet [facility] amoxicillin/clavulanate potassium 875-125 mg tabs CHITRA ([facility]) Amoxicillin 875 MG / Clavulanate 125 MG Oral Tablet CHITRA ([facility]) Alendronic acid 70 MG Oral Tablet CHITRA ([facility]) albuterol sulfate HFA 90 mcg/actuation a erosol inhaler INHALE TWO PUFFS BY MOUTH FOUR TIMES DAILY NEEDED ATHEN A ([facility]) albuterol sulfate hfa 108 (90 base) mcg/act aers CHITRA ([facility]) acyclovir 400 mg tabs CHITRA ([facility]) Acyclovir 400 MG Oral Tablet CHITRA ([facility]) Doxycycline Monohydrate 100 MG Oral Capsule CHITRA ([facility]) doxycycline monohydrate 100 mg caps CHITRA ([facility]) doxycycline hyclate 100 MG Oral Capsule CHITRA ([facility]) doxycycline hyclate 100 mg caps CHITRA ([facility]) Cephalexin 500 MG Oral Capsule CHITRA ([facility]) cephalexin 500 mg caps ATHEN A ([facility]) cefuroxime axetil 500 mg tabs CHITRA ([facility]) baclofen 10 mg tabs CHITRA ( [facility]) amoxicillin/clavulanate potassium 875-125 mg tabs CHITRA ([facility]) Amoxicillin 875 MG / Clavulanate 125 MG Oral Tablet CHITRA ([facility]) acyclovir 400 mg tabs CHITRA ([facility]) omeprazole 20 mg cpdr CHITRA ([facility]) mupirocin 2 % oint CHITRA ([facility]) ibuprofen 800 mg tabs CHITRA ([facility]) gabapentin 600 mg tabs ATHEN A ([facility]) gabapentin 300 MG Oral Capsule CHITRA ([facility]) Doxycycline Monohydrate 100 MG Oral Capsule CHITRA ([facility]) doxycycline monohydrate 100 mg caps CHITRA ([facility]) doxycycline hyclate 100 MG Oral Capsule CHITRA ([facility]) doxycycline hyclate 100 mg caps CHITRA ([facility]) Cephalexin 500 MG Oral Capsule CHITRA ([facility]) cephalexin 500 mg caps ATHEN A ([facility]) cefuroxime axetil 500 mg tabs CHITRA ([facility]) baclofen 10 mg tabs CHITRA ( [facility]) amoxicillin/clavulanate potassium 875-125 mg tabs CHITRA ([facility]) Amoxicillin 875 MG / Clavulanate 125 MG Oral Tablet CHITRA ([facility]) acyclovir 400 mg tabs CHITRA ([facility]) omeprazole 20 mg cpdr CHITRA ([facility]) mupirocin 2 % oint CHITRA ([facility]) ibuprofen 800 mg tabs CHITRA ([facility]) gabapentin 600 mg tabs ATHEN A ([facility]) gabapentin 300 MG Oral Capsule CHITRA ([facility]) tramadol hcl 50 mg tabs ATH JAVIER ([facility]) taltz 80 mg/ml soaj CHITRA ( [facility]) taltz 80 mg/ml soaj CHITRA ([facility]) Sulfamethoxazole 800 MG / Trimethoprim 160 MG Oral Tablet CHITRA ([facility]) prochlorperazine maleate 10 mg tabs CHITRA ([facility]) Prochlorperazine 10 MG Oral Tablet CHITRA ([facility]) prednisone 20 mg tabs CHITRA ([facility]) Prednisone 20 MG Oral Tablet CHITRA ([facility]) prednisone 10 mg tabs CHITRA ([facility]) Prednisone 10 MG Oral Tablet CHITRA ([facility]) prednisone 5 mg tabs CHITRA ([facility]) prednisone 10 mg tabs ATHEN A ([facility]) potassium chloride er 20 meq tbcr CHITRA ([facility]) Potassium Chloride 20 MEQ Extended Release Oral Tablet CHITRA ([facility]) Calcium Carbonate 1250 MG / Cholecalciferol 200 UNT Oral Tablet CHITRA ([facility]) Ondansetron 8 MG Oral Tablet CHITRA ([facility]) Ondansetron 4 MG Disintegrating Oral Tablet CHITRA ([facility]) omeprazole 20 mg cpdr CHITRA ([facility]) Omeprazole 20 MG Delayed Release Oral Capsule CHITRA ([facility]) omeprazole 20 mg cpdr ATHEN A ([facility]) mupirocin 2 % oint CHITRA ([facility]) 0.2 ML Methotrexate 50 MG/ML Auto-Injector CHITRA ([facility]) jadenu 360 mg tabs CHITRA ([facility]) celecoxib 200 mg caps ATHEN A ([facility]) cefuroxime axetil 500 mg tabs CHITRA ([facility]) Cefuroxime 500 MG Oral Tablet CHITRA ([facility]) baclofen 10 mg tabs CHITRA ( [facility]) baclofen 10 mg tabs CHITRA ([facility]) omeprazole 20 mg cpdr CHITRA ([facility]) mupirocin 2 % oint CHITRA ([facility]) ibuprofen 800 mg tabs CHITRA ([facility]) gabapentin 600 mg tabs ATHEN A ([facility]) gabapentin 300 MG Oral Capsule CHITRA ([facility]) Doxycycline Monohydrate 100 MG Oral Capsule CHITRA ([facility]) doxycycline monohydrate 100 mg caps CHITRA ([facility]) doxycycline hyclate 100 MG Oral Capsule CHITRA ([facility]) doxycycline hyclate 100 mg caps CHITRA ([facility]) cephalexin 500 mg caps ATHEN A ([facility]) cefuroxime axetil 500 mg tabs CHITRA ([facility]) baclofen 10 mg tabs CHITRA ( [facility]) amoxicillin/clavulanate potassium 875-125 mg tabs CHITRA ([facility]) Amoxicillin 875 MG / Clavulanate 125 MG Oral Tablet CHITRA ([facility]) acyclovir 400 mg tabs CHITRA ([facility]) omeprazole 20 mg cpdr CHITRA ([facility]) mupirocin 2 % oint CHITRA ([facility]) ibuprofen 800 mg tabs CHITRA ([facility]) gabapentin 600 mg tabs ATHEN A ([facility]) gabapentin 300 MG Oral Capsule CHITRA ([facility]) ibuprofen 800 mg tabs CHITRA ([facility]) Ibuprofen 800 MG Oral Tablet CHITRA ([facility]) Ibuprofen 600 MG Oral Tablet CHITRA ([facility]) gabapentin 600 mg tabs ATHEN A ([facility]) gabapentin 300 MG Oral Capsule CHITRA ([facility]) gabapentin 600 mg tabs ATHE NA ([facility]) ferrous sulfate 325 MG Oral Tablet CHITRA ([facility]) ferrous fumarate 200 mg (65 mg iron)-vit C 25 mg tablet,extend release Take 1 tablet every day by oral route. CHITRA ([facility]) enbrel sureclick 50 mg/ml soaj CHITRA ([facility]) 0.98 ML Etanercept 50 MG/ML Auto-Injector [Enbrel] CHITRA ([facility]) Doxycycline Monohydrate 100 MG Oral Capsule CHITRA ([facility]) doxycycline monohydrate 100 mg caps CHITRA ([facility]) doxycycline hyclate 100 MG Oral Capsule CHITRA ([facility]) doxycycline hyclate 100 mg caps CHITRA ([facility]) deferasirox 500 mg tbso ATHE NA ([facility]) deferasirox 360 MG Oral Tablet CHITRA ([facility]) deferasirox 250 mg tbso ATHE NA ([facility]) deferasirox 360 mg tabs ATH JAVIER ([facility]) Cyclophosphamide 50 MG Oral Capsule CHITRA ([facility]) cyclophosphamide 50 mg caps CHITRA ([facility]) Cephalexin 500 MG Oral Capsule CHITRA ([facility]) cephalexin 500 mg caps ATHEN A ([facility]) celecoxib 200 MG Oral Capsule CHITRA ([facility]) Doxycycline Monohydrate 100 MG Oral Capsule CHITRA ([facility]) doxycycline monohydrate 100 mg caps CHITRA ([facility]) doxycycline hyclate 100 MG Oral Capsule CHITRA ([facility]) doxycycline hyclate 100 mg caps CHITRA ([facility]) Cephalexin 500 MG Oral Capsule CHITRA ([facility]) cephalexin 500 mg caps ATHEN A ([facility]) cefuroxime axetil 500 mg tabs CHITRA ([facility]) baclofen 10 mg tabs CHITRA ( [facility]) amoxicillin/clavulanate potassium 875-125 mg tabs CHITRA ([facility]) Amoxicillin 875 MG / Clavulanate 125 MG Oral Tablet CHITRA ([facility]) acyclovir 400 mg tabs CHITRA ([facility]) omeprazole 20 mg cpdr CHITRA ([facility]) mupirocin 2 % oint CHITRA ([facility]) ibuprofen 800 mg tabs CHITRA ([facility]) Doxycycline Monohydrate 100 MG Oral Capsule CHITRA ([facility]) doxycycline monohydrate 100 mg caps CHITRA ([facility]) doxycycline hyclate 100 MG Oral Capsule CHITRA ([facility]) doxycycline hyclate 100 mg caps CHITRA ([facility]) Cephalexin 500 MG Oral Capsule CHITRA ([facility]) cephalexin 500 mg caps ATHEN A ([facility]) cefuroxime axetil 500 mg tabs CHITRA ([facility]) baclofen 10 mg tabs CHITRA ( [facility]) amoxicillin/clavulanate potassium 875-125 mg tabs CHITRA ([facility]) Amoxicillin 875 MG / Clavulanate 125 MG Oral Tablet CHITRA ([facility]) acyclovir 400 mg tabs CHITRA ([facility]) Taltz Autoinjector 80 mg/mL subcutaneous CHITRA ([facility])
[2020-04-26 11:43] LABS: MEAN CORPUSCULAR HEMOGLOBIN 29.6 pg (27.0-33.0); MEAN CORPUSCULAR HGB CONC 32.9 g/dl (32.0-36.5); PLATELET COUNT, AUTOMATED 337 10^3/uL (150-450); WHITE BLOOD COUNT 5.3 10^3/uL (4.0-10.0)
[2020-04-26 11:46] LABS: HEMATOCRIT 20.7 % (42.0-52.0); HEMOGLOBIN 6.8 g/dl (13.5-17.5)
[2020-04-26 11:53] LABS: INR 1.03; PROTHROMBIN TIME 13.7 SECONDS (12.5-14.3)
[2020-04-26 11:54] LABS: PARTIAL THROMBOPLASTIN TIME 35.1 SECONDS (24.2-38.5)
[2020-04-26 12:08] LABS: ANISOCYTOSIS 1+; ATYPICAL LYMPH 3 % (0-5); LYMPHOCYTES 28 % (16-44); MONOCYTES 13 % (0-5); NEUTROPHILS 56 % (28-66); PLATELET ESTIMATE NORMAL (NORMAL)
[2020-04-26 12:14] LABS: ALBUMIN 3.5 GM/DL (3.2-5.2); ALT/SGPT 44 U/L (12-78); BILIRUBIN,DIRECT 0.1 MG/DL (0.0-0.2); BILIRUBIN,TOTAL 0.4 MG/DL (0.2-1.0); BLOOD UREA NITROGEN 16 MG/DL (7-18); CALCIUM LEVEL 8.9 MG/DL (8.5-10.1); CARBON DIOXIDE LEVEL 28 MEQ/L (21-32); CHLORIDE LEVEL 104 MEQ/L (98-107); CPK CREATINE PHOSPHOKINASE 38 U/L (39-308); CREATININE FOR GFR 0.61 MG/DL (0.70-1.30); GLOMERULAR FILTRATION RATE > 60.0 (>60); GLUCOSE, FASTING 101 MG/DL (70-100); LIPASE 148 U/L (73-393); MB/CK RELATIVE INDEX 2.63 (< OR =4); POTASSIUM SERUM 3.8 MEQ/L (3.5-5.1); SODIUM LEVEL 137 MEQ/L (136-145); TOTAL PROTEIN 7.3 GM/DL (6.4-8.2); TROPONIN I < 0.02 NG/ML (< 0.10)
[2020-04-26] MEDS ORDERED: ACETAMINOPHEN TAB 650MG DOSE (2X325MG) PO PRN (13:00)
--- NOTE | 2020-04-26 15:42 | HPEPDOC ---
[facility] Medical History & Physical Date of Admission Apr 26, 2020 Date of Service: Apr 26, 2020 Attending Physician: HANNAH RAMOS MD History and Physical CHIEF COMPLAINT: Ongoing GIB HISTORY OF PRESENT ILLNESS: 39 years old M with a history of T-LGL leukemia, rheumatoid arthritis, psoriasis who was recently admitted for symptomatic anemia with SOB while having christina hematochezia and received 2u pRBCs with plan for GI evaluation but left AMA to sort out some home issues including finding someone to care for his cat etc, who now returned to the ED and was found to have a Hgb of 6.8 with persistent exertional SOB as before now reporting that he is ready for admission with full evaluation. Of note, in 2019 he had a colonoscopy and EGD that revealed a small hiatal hernia and non-bleeding internal hemorrhoids. 04/23/2020 CXR did not show any acute cardiopulmonary pathology, and covid-19 was negative and today's respiratory panel is still pending. He is now being admitted for evaluation and treatment of his ongoing GIB. His ROS was otherwise negative for fever, chills, abdominal pain, nausea, emesis, hematemesis, hemoptysis, easy bruising, history of VTEs, blurry vision, cough, chest pain, palpitations. Past Medical History: Rheumatoid arthritis long-term followed by Perez Dos Santos MD, [facility] maintained on prednisone status post treatment with multiple disease modifying and immunosuppressive agents. 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 Physical Examination General: Alert, Cooperative, NAD Eye: PERRLA, EOMI, anicteric ENT: Atraumatic, MMM Neck: Supple, no JVD Chest: Clear to auscultation Heart: RRR, no mrg Abdomen: Normal bowel sounds in all 4 quadrants, soft, NTND Extremities: WWP, no LE edema Skin: Nl turgor and temperature Neuro: strength at 5/5 X4 ext, CN3-12 intact, normal speech Psych: AOx3 Laboratory Data WBC 5.3 Hgb 6.8 Hct 20.7 platelets 337 Na 137 K 3.8 Cr 0.61 troponin <0.02 Assessment: 39 year old M with a history of T-LGL leukemia, rheumatoid arthritis, psoriasis who re-presented to the hospital with shortness of breath with known ongoing GIB after signing out AMA. Symptomatic anemia -Acute blood loss anemia secondary to GI loss superimposed with myelosuppression secondary to chemotherapy and with isolated red cell aplasia -will give a total 3 units of blood today -clear liquid diet -GI consult -likely will receive prep tonight with plan for scoping tomorrow. Will discuss with Dr. Carbajal -will check post transfusion H/H -IV PPI BID T-cell large granular lymphocytic leukemia -Will follow-up with oncology in the outpatient setting Rheumatoid arthritis -will follow-up with rheumatology in the outpatient settings DVT ppx: TEDs and SCDs Dispo: inpatient med/surg Vital Signs Vital Signs Date Time Temp Pulse Resp B/P (MAP) Pulse Ox O2 Delivery O2 Flow Rate FiO2 04/26/20 12:00 04/26/20 10:36 98.2 87 18 98 Room Air Laboratory Data Labs 24H Laboratory Tests 2 04/26/20 11:04: Neutrophils (%) (Auto) , Nucleated Red Blood Cells % (auto) 0.0, Neutrophils 56, Lymphocytes (Manual) 28, Monocytes (Manual) 13H, Atypical Lymphocytes 3, Anisocytosis 1+, Platelet Estimate NORMAL, Prothrombin Time 13.7, Prothromb Time International Ratio 1.03, Activated Partial Thromboplast Time 35.1, Anion Gap 5L, Glomerular Filtration Rate > 60.0, Calcium Level 8.9, Total Bilirubin 0.4#, Direct Bilirubin 0.1, Aspartate Amino Transf (AST/SGOT) 17, Alanine Aminotransferase (ALT/SGPT) 44, Alkaline Phosphatase 134H, Total Creatine Kinase 38L, Creatine Kinase MB 1.0, Creatine Kinase MB Relative Index 2.63, Troponin I < 0.02, Total Protein 7.3, Albumin 3.5, Albumin/Globulin Ratio 0.9, Lipase 148 CBC/BMP Laboratory Tests 04/26/20 11:04 Microbiology Microbiology 04/26/20 Respiratory Virus Panel (PCR) ([facility]), Received Pending Home Medications Scheduled Alendronate Sodium (Alendronate Sodium) 70 Mg Tablet, 70 MG PO QWEEK WEDNESDAYS Cyanocobalamin (Vitamin B-12) (Vitamin B-12) 1,000 Mcg Tablet, 1,000 MCG PO QHS Cyclophosphamide (Cyclophosphamide) 50 Mg Capsule, 50 MG PO DAILY Omeprazole (Omeprazole) 20 Mg Capsule.dr, 20 MG PO BID Prednisone (Prednisone) 5 Mg Tablet, 5 MG PO QAM 15MG TOTAL DAILY Prednisone (Prednisone) 10 Mg Tablet, 10 MG PO QHS 15MG TOTAL DAILY Scheduled PRN Acetaminophen (Tylenol Arthritis) 650 Mg Tablet.er, 650 MG PO Q8H PRN for PAIN Baclofen (Baclofen) 10 Mg Tablet, 10 MG PO QHS PRN for SPASMS Gabapentin (Gabapentin) 600 Mg Tablet, 600 MG PO TID PRN for PAIN Ondansetron HCl (Ondansetron HCl) 8 Mg Tablet, 8 MG PO Q6H PRN for NAUSEA OR VOMITING Tramadol HCl (Tramadol HCl) 50 Mg Tablet, 50 MG PO BID PRN for PAIN Allergies Coded Allergies: No Known Allergies (Unverified , 07/11/18) A-FIB/CHADSVASC A-FIB History Current/History of A-Fib/PAF?: No Age/Risk Factor Scoring CHADSVASC: CHADSVASC Response (Comments) Value Age Risk Factor Age < 65 years old 0 Gender Risk Factor Male 0 Hx of CHF No 0 Hx of Stroke/TIA/or VTE No 0 Hx of Diabetes No 0 Hx of Vascular Disease No 0 Total 0 Treatment Treatment ordered: NONE Reason Anticoagulant not given: Current bleeding, Not indicated/[id number] HANNAH RAMOS MD Apr 26, 2020 13:27
[2020-04-26] MEDS: PANTOPRAZOLE 40MG VIAL (C9113 PER 1) IV SCH ×2 (17:05→20:40)
[2020-04-26] MEDS ORDERED: GOLYTELY SOLN 4000 ML BTL PO ONE ×2 (22:15→22:45)
[2020-04-27] VITALS (10 sets, daily range): BP systolic 121–140; BP diastolic 65–82
[2020-04-27] MEDS ORDERED: BISACODYL 5 MG TAB PO ONE (05:00)
[2020-04-27] MEDS: ONDANSETRON 4MG/2ML VIAL IV PRN ×3 (06:32→18:47)
[2020-04-27 06:48] LABS: HEMATOCRIT 27.1 % (42.0-52.0); MEAN CORPUSCULAR HEMOGLOBIN 29.8 pg (27.0-33.0); MEAN CORPUSCULAR HGB CONC 33.6 g/dl (32.0-36.5); MEAN CORPUSCULAR VOLUME 88.9 fl (80.0-96.0); PLATELET COUNT, AUTOMATED 331 10^3/uL (150-450); RED BLOOD COUNT 3.05 10^6/uL (4.30-6.10); WHITE BLOOD COUNT 6.3 10^3/uL (4.0-10.0)
[2020-04-27 06:57] LABS: HEMOGLOBIN 9.1 g/dl (13.5-17.5)
[2020-04-27 07:07] LABS: BLOOD UREA NITROGEN 9 MG/DL (7-18); CALCIUM LEVEL 8.7 MG/DL (8.5-10.1); CARBON DIOXIDE LEVEL 27 MEQ/L (21-32); CHLORIDE LEVEL 102 MEQ/L (98-107); CREATININE FOR GFR 0.54 MG/DL (0.70-1.30); GLOMERULAR FILTRATION RATE > 60.0 (>60); GLUCOSE, FASTING 85 MG/DL (70-100); MAGNESIUM LEVEL 1.9 MG/DL (1.8-2.4); POTASSIUM SERUM 3.8 MEQ/L (3.5-5.1); SODIUM LEVEL 137 MEQ/L (136-145)
[2020-04-27] MEDS ORDERED: traMADol 50 MG TAB PO PRN (08:30)
[2020-04-27] MEDS ORDERED: BACLOFEN 10 MG TAB PO PRN (08:30)
[2020-04-27] MEDS ORDERED: ONDANSETRON 4 MG TAB PO PRN (08:30)
[2020-04-27] MEDS: OMEPRAZOLE 20 MG CAP PO SCH ×2 (09:00→20:01)
[2020-04-27] MEDS ORDERED: MORPHINE 2 MG/ML 1ML VIAL (J2270) IV ONE (09:15)
[2020-04-27] MEDS: PANTOPRAZOLE 40MG VIAL (C9113 PER 1) IV SCH ×2 (09:42→20:01)
--- NOTE | 2020-04-27 12:05 | IPNPDOC ---
Text Note Date of Service The patient was seen on 04/27/20. NOTE SUBJECTIVE: -some pain this morning, asking for his home meds -Had go-lytely overnight for scoping today per Dr. Carbajal Physical Examination General: Alert, Cooperative, NAD Eye: PERRLA, EOMI, anicteric ENT: Atraumatic, MMM Neck: Supple, no JVD Chest: Clear to auscultation Heart: RRR, no mrg Abdomen: Normal bowel sounds in all 4 quadrants, soft, NTND Extremities: WWP, no LE edema Skin: Nl turgor and temperature Neuro: strength at 5/5 X4 ext, CN3-12 intact, normal speech Psych: AOx3 Laboratory Data: reviewed WBC 6.3 Hgb 9.1 Cr 0.54 Assessment: 39 year old M with a history of T-LGL leukemia, rheumatoid arthritis, psoriasis who re-presented to the hospital with shortness of breath with known ongoing GIB after signing out AMA. Symptomatic anemia -Acute blood loss anemia secondary to GI loss superimposed with myelosuppression secondary to chemotherapy and with isolated red cell aplasia -s/p 3 units of blood with good response -NPO -GI consulted, s/p prep overnight, EGD/colo this AM -IV PPI BID T-cell large granular lymphocytic leukemia -Will follow-up with oncology in the outpatient setting Rheumatoid arthritis -will follow-up with rheumatology in the outpatient settings Chronic pain -restart home meds DVT ppx: TEDs and SCDs Dispo: inpatient med/surg VS,Fishbone, I+O VS, Fishbone, I+O Laboratory Tests 04/26/20 11:04 04/27/20 06:00 Vital Signs Date Time Temp Pulse Resp B/P (MAP) Pulse Ox O2 Delivery O2 Flow Rate FiO2 04/27/20 06:00 97.2 67 20 140/75 (96) 99 Room Air I&O- Last 24 Hours up to 6 AM 04/27/20 06:00 Intake Total 4439 ml Output Total 1450 ml Balance 2989 ml HANNAH RAMOS MD Apr 27, 2020 08:42
[2020-04-27] MEDS ORDERED: fentaNYL 100 MCG/2 ML INJECTION (J3010) As Ordered ONE (15:51)
[2020-04-27] MEDS ORDERED: LIDOCAINE 2% 100MG/5ML SDV (FOR ANES.) As Ordered ONE (15:51)
[2020-04-27] MEDS ORDERED: propofoL 500 MG/50 ML VIAL As Ordered ONE (15:51)
[2020-04-27] MEDS ORDERED: PHENYLephrine 500MCG 5ML (100MCG/ML) SYRINGE As Ordered ONE (15:54)
[2020-04-27] MEDS ORDERED: propofoL 200 MG/20 ML VIAL As Ordered ONE (16:04)
[2020-04-27] MEDS ORDERED: ONDANSETRON 4MG/2ML VIAL IV PRN (16:45)
[2020-04-27] MEDS ORDERED: LR 1,000 ML IV SCH (16:45)
[2020-04-27] MEDS: predniSONE 5 MG TAB PO SCH (16:50)
--- NOTE | 2020-04-27 16:50 | ROOR ---
Patient Name: Ronald Carrillo Procedure Date: 04/27/2020 1:30 PM Date of : 1980 Age: 39 Gender: Male Note Status: Finalized Procedure: Upper GI endoscopy Indications: Acute post hemorrhagic anemia, Iron deficiency anemia secondary to chronic blood loss Providers: Keyshawn Carbajal MD Referring MD: Citlalli Bell Md, 2. Inpatient 2. Inpatient Requesting Provider: Medicines: Monitored Anesthesia Care Complications: No immediate complications. Procedure: Pre-Anesthesia Assessment: - Prior to the procedure, a History and Physical was performed, and patient medications and allergies were reviewed. The patient is competent. The risks and benefits of the procedure and the sedation options and risks were discussed with the patient. All questions were answered and informed consent was obtained. Patient identification and proposed procedure were verified by the physician, the nurse and the anesthesiologist in the procedure room. Mental Status Examination: alert and oriented. Airway Examination: normal oropharyngeal airway and neck mobility. Respiratory Examination: clear to auscultation. Prophylactic Antibiotics: The patient does not require prophylactic antibiotics. Prior Anticoagulants: The patient has taken no previous anticoagulant or antiplatelet agents. ASA Grade Assessment: II - A patient with mild systemic disease. After reviewing the risks and benefits, the patient was deemed in satisfactory condition to undergo the procedure. The anesthesia plan was to use monitored anesthesia care (MAC). Immediately prior to administration of medications, the patient was re-assessed for adequacy to receive sedatives. The heart rate, respiratory rate, oxygen saturations, blood pressure, adequacy of pulmonary ventilation, and response to care were monitored throughout the procedure. The physical status of the patient was re-assessed after the procedure. The Endoscope was introduced through the mouth, and advanced to the second part of duodenum. The upper GI endoscopy was accomplished without difficulty. The patient tolerated the procedure well. Findings: LA Grade A (one or more mucosal breaks less than 5 mm, not extending between tops of 2 mucosal folds) esophagitis with no bleeding was found in the distal esophagus. No gross lesions were noted in the entire examined stomach. The duodenal bulb, second portion of the duodenum, area of the papilla and third portion of the duodenum were normal. Impression: - LA Grade A esophagitis. - No gross lesions in the stomach. - Normal duodenal bulb, second portion of the duodenum, area of the papilla and third portion of the duodenum. - No specimens collected. Recommendation: - Patient has a contact number available for emergencies. The signs and symptoms of potential delayed complications were discussed with the patient. Return to normal activities tomorrow. Written discharge instructions were provided to the patient. - High fiber diet. - Continue present medications. - Await pathology results. - Check lab for other causes of anemia, Obtain erythropoietin level, and Iron studies in the morning. - Refer to a staff climate scientist. - Return to primary care physician. Procedure Code(s): --- Professional --- 58743, Esophagogastroduodenoscopy, flexible, transoral; diagnostic, including collection of specimen(s) by brushing or washing, when performed (separate procedure) Diagnosis Code(s): --- Professional --- K20.9, Esophagitis, unspecified D62, Acute posthemorrhagic anemia D50.0, Iron deficiency anemia secondary to blood loss (chronic) CPT copyright 2019 [employer]. All rights reserved. The codes documented in this report are preliminary and upon assembler aircraft power plant review may be revised to meet current compliance requirements. Keyshawn Carbajal MD Keyshawn Carbajal MD 04/27/2020 4:49:52 PM Electronically signed by Keyshawn Carbajal MD Number of Addenda: 0 Note Initiated On: 04/27/2020 1:30 PM Estimated Blood Loss: Estimated blood loss: none.
--- NOTE | 2020-04-27 16:56 | ROOR ---
Patient Name: Ronald Carrillo Procedure Date: 04/27/2020 1:28 PM Date of : 1980 Age: 39 Gender: Male Note Status: Finalized Procedure: Colonoscopy Indications: Acute post hemorrhagic anemia, Iron deficiency anemia secondary to chronic blood loss Providers: Keyshawn Carbajal MD Referring MD: Citlalli Bell Md, 2. Inpatient 2. Inpatient Requesting Provider: Medicines: Monitored Anesthesia Care Complications: No immediate complications. Procedure: Pre-Anesthesia Assessment: - Prior to the procedure, a History and Physical was performed, and patient medications and allergies were reviewed. The patient is competent. The risks and benefits of the procedure and the sedation options and risks were discussed with the patient. All questions were answered and informed consent was obtained. Patient identification and proposed procedure were verified by the physician, the nurse and the anesthesiologist in the procedure room. Mental Status Examination: alert and oriented. Airway Examination: normal oropharyngeal airway and neck mobility. Respiratory Examination: clear to auscultation. CV Examination: normal. Prophylactic Antibiotics: The patient does not require prophylactic antibiotics. Prior Anticoagulants: The patient has taken no previous anticoagulant or antiplatelet agents. ASA Grade Assessment: II - A patient with mild systemic disease. After reviewing the risks and benefits, the patient was deemed in satisfactory condition to undergo the procedure. The anesthesia plan was to use monitored anesthesia care (MAC). Immediately prior to administration of medications, the patient was re-assessed for adequacy to receive sedatives. The heart rate, respiratory rate, oxygen saturations, blood pressure, adequacy of pulmonary ventilation, and response to care were monitored throughout the procedure. The physical status of the patient was re-assessed after the procedure. The Colonoscope was introduced through the anus and advanced to the terminal ileum, with identification of the appendiceal orifice and IC valve. The colonoscopy was performed without difficulty. The patient tolerated the procedure well. The quality of the bowel preparation was good. The terminal ileum, ileocecal valve, appendiceal orifice, and rectum were photographed. Scope insertion time was 1 minute. Scope withdrawal time was 6 minutes. The total duration of the procedure was 7 minutes. Findings: The perianal and digital rectal examinations were normal. The terminal ileum appeared normal. A 12 mm polyp was found in the descending colon. The polyp was sessile. The polyp was removed with a hot snare. Resection and retrieval were complete. To close a defect after polypectomy, one hemostatic clip was successfully placed. There was no bleeding at the end of the procedure. Non-bleeding external and internal hemorrhoids were found during retroflexion. The hemorrhoids were medium-sized. There is no endoscopic evidence of bleeding in the entire colon. Impression: - The examined portion of the ileum was normal. - One 12 mm polyp in the descending colon, removed with a hot snare. Resected and retrieved. Clip was placed. - Non-bleeding external and internal hemorrhoids. Recommendation: - Patient has a contact number available for emergencies. The signs and symptoms of potential delayed complications were discussed with the patient. Return to normal activities tomorrow. Written discharge instructions were provided to the patient. - High fiber diet. - Continue present medications. - Await pathology results. - Repeat colonoscopy in 3 years for surveillance based on pathology results. - Return to GI clinic in 3 years. - Return to primary care physician. Procedure Code(s): --- Professional --- 62838, Colonoscopy, flexible; with removal of tumor(s), polyp(s), or other lesion(s) by snare technique Diagnosis Code(s): --- Professional --- K64.8, Other hemorrhoids K63.5, Polyp of colon D62, Acute posthemorrhagic anemia D50.0, Iron deficiency anemia secondary to blood loss (chronic) CPT copyright 2019 [employer]. All rights reserved. The codes documented in this report are preliminary and upon mixer helper review may be revised to meet current compliance requirements. Keyshawn Carbajal MD Keyshawn Carbajal MD 04/27/2020 4:56:46 PM Electronically signed by Keyshawn Carbajal MD Number of Addenda: 0 Note Initiated On: 04/27/2020 1:28 PM Estimated Blood Loss: Estimated blood loss was minimal.
[2020-04-27] MEDS: GABAPENTIN 300 MG CAP PO PRN (17:58)
[2020-04-27] MEDS ORDERED: CYANOCOBALAMIN 500 MCG TAB PO SCH (21:00)
[2020-04-27] MEDS ORDERED: predniSONE 10 MG TAB PO SCH (21:00)
[2020-04-28 02:00] VITALS: BP 109/69
[2020-04-28 06:00] VITALS: BP 108/66
[2020-04-28 06:21] LABS: HEMATOCRIT 26.9 % (42.0-52.0); MEAN CORPUSCULAR HEMOGLOBIN 29.9 pg (27.0-33.0); MEAN CORPUSCULAR HGB CONC 33.5 g/dl (32.0-36.5); MEAN CORPUSCULAR VOLUME 89.4 fl (80.0-96.0); PLATELET COUNT, AUTOMATED 303 10^3/uL (150-450); RED BLOOD COUNT 3.01 10^6/uL (4.30-6.10); WHITE BLOOD COUNT 5.1 10^3/uL (4.0-10.0)
[2020-04-28 06:47] LABS: BLOOD UREA NITROGEN 10 MG/DL (7-18); CALCIUM LEVEL 8.9 MG/DL (8.5-10.1); CARBON DIOXIDE LEVEL 29 MEQ/L (21-32); CHLORIDE LEVEL 101 MEQ/L (98-107); CREATININE FOR GFR 0.61 MG/DL (0.70-1.30); GLOMERULAR FILTRATION RATE > 60.0 (>60); GLUCOSE, FASTING 84 MG/DL (70-100); SODIUM LEVEL 137 MEQ/L (136-145)
[2020-04-28] MEDS: PANTOPRAZOLE 40MG VIAL (C9113 PER 1) IV SCH (09:18)
[2020-04-28] MEDS: GABAPENTIN 300 MG CAP PO PRN (09:18)
[2020-04-28] MEDS: predniSONE 5 MG TAB PO SCH (09:18)
[2020-04-28] MEDS: OMEPRAZOLE 20 MG CAP PO SCH (09:18)
[2020-04-28 10:00] VITALS: BP 135/85
--- NOTE | 2020-04-28 12:36 | DS.PDOC ---
Discharge Summary General Date of Admission Apr 26, 2020 at 12:59 Date of Discharge 04/28/2020 Attending Physician: HANNAH RAMOS MD Discharge Summary PROCEDURES PERFORMED DURING STAY: EGD/colonoscopy 04/27/2020 ADMITTING DIAGNOSES: 1. GIB DISCHARGE DIAGNOSES: LGIB 2/2 hemorrhoids Acute on chronic anemia with a history of isolated red cell aplasia Rheumatoid arthritis long-term followed by Perez Dos Santos MD, [facility] maintained on prednisone status post treatment with multiple disease modifying and immunosuppressive agents. 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 HISTORY OF PRESENT ILLNESS: 39 years old M with a history of T-LGL leukemia, rheumatoid arthritis, psoriasis who was recently admitted for symptomatic anemia with SOB while having christina hematochezia and received 2u pRBCs with plan for GI evaluation but left AMA to sort out some home issues including finding someone to care for his cat etc, who then returned to the ED and was found to have a Hgb of 6.8 with persistent exertional SOB as before now reporting that he was ready for admission with full evaluation. Of note, in 2019 he had a colonoscopy and EGD that revealed a small hiatal hernia and non-bleeding internal hemorrhoids. 04/23/2020 CXR did not show any acute cardiopulmonary pathology, and covid-19 was negative. HOSPITAL COURSE: He was given a total of 3u of pRBCs with good response and GI was consulted and he had a EGC/colo on 04/27 during which a polyp was removed from the descending colon and sent for pathology and he had noted non-bleeding hemorrhoids. He is now being discharged home. DISCHARGE MEDICATIONS: Please see below. ALLERGIES: Please see below. PHYSICAL EXAMINATION ON DISCHARGE: VITAL SIGNS: Please see below. General: Alert, Cooperative, NAD Eye: PERRLA, EOMI, anicteric ENT: Atraumatic, MMM Neck: Supple, no JVD Chest: Clear to auscultation Heart: RRR, no mrg Abdomen: Normal bowel sounds in all 4 quadrants, soft, NTND Extremities: WWP, no LE edema Skin: Nl turgor and temperature Neuro: strength at 5/5 X4 ext, CN3-12 intact, normal speech Psych: AOx3 LABORATORY DATA: Please see below. IMAGING: None PROGNOSIS: Good ACTIVITY: As tolerated DIET: low fat, high fiber diet DISCHARGE PLAN: Home with services DISPOSITION: Home DISCHARGE INSTRUCTIONS: PCP follow up within 1 week. Follow up wtih GI within 2-4w for pathology results ITEMS TO FOLLOWUP ON ON OUTPATIENT: Colonic polyp pathology RA Leukemia Anemia DISCHARGE CONDITION: Stable TIME SPENT ON DISCHARGE: 46 minutes. Vital Signs/I&Os Vital Signs Date Time Temp Pulse Resp B/P (MAP) Pulse Ox O2 Delivery O2 Flow Rate FiO2 04/28/20 10:00 98.8 89 18 135/85 (102) 93 Room Air I&O- Last 24 Hours up to 6 AM 04/28/20 06:00 Intake Total 655 ml Output Total 1625 ml Balance -970 ml Laboratory Data Labs 24H Laboratory Tests 2 04/28/20 05:54: Nucleated Red Blood Cells % (auto) 0.0, Anion Gap 7L, Glomerular Filtration Rate > 60.0, Calcium Level 8.9 CBC/BMP Laboratory Tests 04/28/20 05:54 Microbiology Microbiology 04/26/20 Respiratory Virus Panel (PCR) ([facility]) - Final, Complete Discharge Medications Scheduled Alendronate Sodium (Alendronate Sodium) 70 Mg Tablet, 70 MG PO QWEEK, (Reported) WEDNESDAYS Cyanocobalamin (Vitamin B-12) (Vitamin B-12) 1,000 Mcg Tablet, 1,000 MCG PO QHS, (Reported) Cyclophosphamide (Cyclophosphamide) 50 Mg Capsule, 50 MG PO DAILY Omeprazole (Omeprazole) 20 Mg Capsule.dr, 20 MG PO BID, (Reported) Prednisone (Prednisone) 5 Mg Tablet, 5 MG PO QAM, (Reported) 15MG TOTAL DAILY Prednisone (Prednisone) 10 Mg Tablet, 10 MG PO QHS, (Reported) 15MG TOTAL DAILY Scheduled PRN Acetaminophen (Tylenol Arthritis) 650 Mg Tablet.er, 650 MG PO Q8H PRN for PAIN, (Reported) Baclofen (Baclofen) 10 Mg Tablet, 10 MG PO QHS PRN for SPASMS, (Reported) Gabapentin (Gabapentin) 600 Mg Tablet, 600 MG PO TID PRN for PAIN, (Reported) Ondansetron HCl (Ondansetron HCl) 8 Mg Tablet, 8 MG PO Q6H PRN for NAUSEA OR VOMITING Tramadol HCl (Tramadol HCl) 50 Mg Tablet, 50 MG PO BID PRN for PAIN, (Reported) Allergies Coded Allergies: No Known Allergies (Unverified , 07/11/18) HANNAH RAMOS MD Apr 28, 2020 12:36
== END 2020-04-28 11:50 | disposition home health service (06) | DRG 378 ==
LOC: M ED 10:35 → M ED INP 12:59 → M MSPAV 17:01
PROVIDERS: ADMIT Internal Medicine; ATTEND Internal Medicine
PROC: 30233N1 Transfusion of Nonautologous Red Blood Cells into Peripheral Vein, Percutaneous Approach (ICD-10-PCS; 2020-04-26)
PROC: 0DBM8ZX Excision of Descending Colon, Via Natural or Artificial Opening Endoscopic, Diagnostic (ICD-10-PCS; 2020-04-27)
PROC: 0W3P8ZZ Control Bleeding in Gastrointestinal Tract, Via Natural or Artificial Opening Endoscopic (ICD-10-PCS; 2020-04-27)
PROC: 0DJ08ZZ Inspection of Upper Intestinal Tract, Via Natural or Artificial Opening Endoscopic (ICD-10-PCS; principal; 2020-04-27 12:00)
DX: K92.2 Gastrointestinal hemorrhage, unspecified (principal); C91.60 Prolymphocytic leukemia of T-cell type not having achieved remission; D62 Acute posthemorrhagic anemia; M06.9 Rheumatoid arthritis, unspecified; L40.9 Psoriasis, unspecified; K44.9 Diaphragmatic hernia without obstruction or gangrene; K20.90 Esophagitis, unspecified without bleeding; G89.29 Other chronic pain; K64.4 Residual hemorrhoidal skin tags; K64.8 Other hemorrhoids; F17.290 Nicotine dependence, other tobacco product, uncomplicated; D12.4 Benign neoplasm of descending colon; D64.81 Anemia due to antineoplastic chemotherapy; Z79.52 Long term (current) use of systemic steroids; Z79.899 Other long term (current) drug therapy; Z96.642 Presence of left artificial hip joint; Z11.52 Encounter for screening for COVID-19

== ENCOUNTER 2020-05-24 07:38 | Outpatient (CLI) | payer MEDICARE, MEDICAID ==
[~2020-05-24] VITALS: Ht 180.3 cm; Wt 86.3 kg
[~2020-05-24 07:38] MED LIST changes: +ACETAMINOPHEN TAB 650MG DOSE (2X325MG) PO SCH; +diphenhydrAMINE 25MG CAP PO SCH
[2020-05-24 07:56] VITALS: BP 106/61
[2020-05-24 09:13] VITALS: BP 106/61
[2020-05-24 09:30] VITALS: BP 97/55
[2020-05-24 10:40] VITALS: BP 109/66
[2020-05-24 11:00] VITALS: BP 109/66
== END 2020-05-24 11:00 | disposition home or self-care (01) ==
LOC: M INFU 07:38
PROVIDERS: ATTEND Specialist
DX: C91.50 Adult T-cell lymphoma/leukemia (HTLV-1-associated) not having achieved remission (principal)
CPT/HCPCS: 36430; 36592; 86850; 86900; 86901; 86920; P9016

== ENCOUNTER 2020-05-31 15:35 | Outpatient (CLI) | payer MEDICARE, MEDICAID ==
[~2020-05-31] VITALS: Ht 180.3 cm; Wt 86.3 kg
[2020-05-31 17:00] VITALS: BP 114/62
[2020-05-31 17:16] VITALS: BP 114/62
[2020-05-31 18:28] VITALS: BP 104/62
== END 2020-05-31 18:40 | disposition home or self-care (01) ==
LOC: M INFU 15:35
PROVIDERS: ATTEND Specialist
DX: C91.50 Adult T-cell lymphoma/leukemia (HTLV-1-associated) not having achieved remission (principal); D64.9 Anemia, unspecified
CPT/HCPCS: 36415; 36430; 85025; 86850; 86900; 86901; 86920; 96372; J0885; P9016

== ENCOUNTER 2020-06-07 13:57 | Outpatient (CLI) | payer MEDICARE, MEDICAID ==
[~2020-06-07] VITALS: Ht 180.3 cm; Wt 83.1 kg
[2020-06-07 14:54] VITALS: BP 131/58
[2020-06-07 15:15] VITALS: BP 105/85
[2020-06-07 16:35] VITALS: BP 99/55
[2020-06-07 17:05] VITALS: BP 130/73
[2020-06-07 18:09] VITALS: BP 136/97
[2020-06-07 18:35] VITALS: BP 127/72
== END 2020-06-07 18:45 | disposition home or self-care (01) ==
LOC: M INFU 13:57
PROVIDERS: ATTEND Specialist
DX: C91.50 Adult T-cell lymphoma/leukemia (HTLV-1-associated) not having achieved remission (principal)
CPT/HCPCS: 36430; P9016

== ENCOUNTER 2020-06-27 14:00 | Outpatient (CLI) | payer MEDICARE, MEDICAID ==
[~2020-06-27] VITALS: Ht 172.7 cm; Wt 83.2 kg
[~2020-06-27 14:00] MED LIST changes: -ACETAMINOPHEN TAB 650MG DOSE (2X325MG) PO SCH; +BUPR150T12; +HYDR200T3; +SULF1TAB93; -diphenhydrAMINE 25MG CAP PO SCH
[2020-06-27] MEDS ORDERED: ACETAMINOPHEN TAB 650MG DOSE (2X325MG) PO ONE (14:30)
[2020-06-27] MEDS ORDERED: diphenhydrAMINE 25MG CAP PO ONE (14:30)
[2020-06-27 15:14] VITALS: BP 109/63
[2020-06-27 15:30] VITALS: BP 108/67
[2020-06-27 16:34] VITALS: BP 119/70
== END 2020-06-27 16:45 | disposition home or self-care (01) ==
LOC: M INFU 14:00
PROVIDERS: ATTEND Specialist
DX: D64.9 Anemia, unspecified (principal)
CPT/HCPCS: 36415; 36430; 85025; 86850; 86900; 86901; 86920; 96372; J0885; P9016

== ENCOUNTER → 2020-07-12 | Outpatient (CLI) | payer MEDICARE, MEDICAID ==
[~2020-07-12] VITALS: Ht 180.3 cm; Wt 83.1 kg
[~2020-07-12] MED LIST changes: +ACETAMINOPHEN TAB 650MG DOSE (2X325MG) PO SCH; +ACYC1TAB PO; -ACYC400T PO; +diphenhydrAMINE 25MG CAP PO SCH
[2020-07-12 08:25] VITALS: BP 130/81
[2020-07-12 09:15] VITALS: BP 109/58
[2020-07-12 10:06] VITALS: BP 98/56
[2020-07-12 10:57] VITALS: BP 131/76
[2020-07-12 11:33] VITALS: BP 126/76
== END ==
LOC: M INFU 08:20
PROVIDERS: ATTEND Specialist
DX: D64.9 Anemia, unspecified (principal)
CPT/HCPCS: 36430; P9016

== ENCOUNTER 2020-07-23 11:05 | Outpatient (CLI) | payer MEDICARE, MEDICAID ==
[~2020-07-23] VITALS: Ht 180.3 cm; Wt 83.1 kg
[2020-07-23 12:06] VITALS: BP 137/67
[2020-07-23 12:20] VITALS: BP 101/58
[2020-07-23 13:55] VITALS: BP 94/51
[2020-07-23 14:10] VITALS: BP 121/71
[2020-07-23 15:34] VITALS: BP 141/82
== END 2020-07-23 15:35 | disposition home or self-care (01) ==
LOC: M INFU 11:05
PROVIDERS: ATTEND Internal Medicine Hematology & Oncology
DX: D64.9 Anemia, unspecified (principal)
CPT/HCPCS: 36430; P9016

== ENCOUNTER 2020-07-27 14:10 | Inpatient (IN) | payer MEDICARE, MEDICAID ==
[~2020-07-27] VITALS: Ht 177.8 cm; Wt 89.6 kg
[~2020-07-27 14:10] MED LIST changes: -ACETAMINOPHEN TAB 650MG DOSE (2X325MG) PO SCH; -BUPR150T12; +BUPR150T12 PO; -HYDR200T3; +HYDR200T3 PO; -SULF1TAB93; +SULF1TAB93 PO; -diphenhydrAMINE 25MG CAP PO SCH
[2020-07-27] MEDS ORDERED: PERCOCET 5MG/325MG TAB PO ONE (14:55)
[2020-07-27 15:28] LABS: BASO % 0.6 % (0.0-1.0); EOS % 0.6 % (0.0-3.0); HEMATOCRIT 24.8 % (42.0-52.0); HEMOGLOBIN 8.2 g/dl (13.5-17.5); LYMPH # 0.5 10^3/uL (1.5-5.0); LYMPH % 10.4 % (24.0-44.0); MEAN CORPUSCULAR HEMOGLOBIN 31.3 pg (27.0-33.0); MEAN CORPUSCULAR HGB CONC 33.1 g/dl (32.0-36.5); MEAN CORPUSCULAR VOLUME 94.7 fl (80.0-96.0); MONO # 0.8 10^3/uL (0.0-0.8); MONO % 15.5 % (2.0-8.0); NEUTROPHILS # 3.7 10^3/uL (1.5-8.5); NEUTROPHILS % 71.7 % (36.0-66.0); PLATELET COUNT, AUTOMATED 446 10^3/uL (150-450); RED BLOOD COUNT 2.62 10^6/uL (4.30-6.10); WHITE BLOOD COUNT 5.2 10^3/uL (4.0-10.0)
--- NOTE | 2020-07-27 15:53 | REP ---
INDICATION: chest pain COMPARISON: 04/23/2020 TECHNIQUE: Portable AP view of the chest FINDINGS: The mediastinum and cardiac silhouette are stable and within normal limits for portable technique. The lung howard demonstrate left lower lobe atelectasis. No effusion or pneumothorax. Skeletal structures are intact. IMPRESSION: Left lower lobe atelectasis. <Electronically signed by Toby Maurer > 07/27/20 [id number]
[2020-07-27 15:59] LABS: BLOOD UREA NITROGEN 11 MG/DL (7-18); CALCIUM LEVEL 9.6 MG/DL (8.5-10.1); CARBON DIOXIDE LEVEL 27 MEQ/L (21-32); CHLORIDE LEVEL 104 MEQ/L (98-107); CK-MB VALUE MASS < 1.0 NG/ML (<3.6); CPK CREATINE PHOSPHOKINASE 30 U/L (39-308); CREATININE FOR GFR 0.55 MG/DL (0.70-1.30); GLOMERULAR FILTRATION RATE > 60.0 (>60); GLUCOSE, FASTING 90 MG/DL (70-100); MB/CK RELATIVE INDEX 3.33 (< OR =4); POTASSIUM SERUM 3.7 MEQ/L (3.5-5.1); SODIUM LEVEL 137 MEQ/L (136-145); TROPONIN I < 0.02 NG/ML (< 0.10)
[2020-07-27] MEDS ORDERED: ISOVUE-370 76% 100ML VIAL As Ordered ONE (16:11)
--- NOTE | 2020-07-27 16:46 | REP ---
INDICATION: r/o PE COMPARISON: 08/30/2018 TECHNIQUE: Axial contrast enhanced images from the thoracic inlet to the upper abdomen using pulmonary embolus technique with multiplanar re-formations. 75 ml Isovue 370 intravenous contrast material administered without complication. This CT examination was performed using the following dose reduction techniques: Automated exposure control, adjustment of mA and/or kv according to the patient's size, and use of iterative reconstruction technique. FINDINGS: Satisfactory enhancement of the pulmonary vasculature is achieved and no filling defects are identified to suggest pulmonary embolus. Further evaluation of the mediastinum demonstrates normal thoracic aorta, heart and pericardium. The lung howard demonstrate left lower lobe and small lingular consolidations along with bibasilar dependent changes. No effusion. No pneumothorax. Tracheobronchial tree is patent. No significant adenopathy. Thyroid gland appears normal. Musculoskeletal structures are intact. Stable hepatic cysts. IMPRESSION: No evidence for pulmonary embolus. Left lower and small lingular lobe consolidations suggesting acute pneumonia. <Electronically signed by Toby Maurer > 07/27/20 [id number]
[2020-07-27] MEDS: cefTRIAXone SOD 1 GM in D5W MINI-BAG PLUS 50 ML IV ONE ×2 (17:50→18:27)
[2020-07-27 17:54] LABS: ERYTHROCYTE SEDIMENTATION RATE > 140 mm/hr (0-15)
[2020-07-27] MEDS ORDERED: AZITHROMYCIN INJ 500 MG, VIAL MATE ADAPTER 1 EACH in NS 250 ML IV ONE (18:00)
[2020-07-27] MEDS ORDERED: NORCO, ANEXSIA 5/325MG TABLET (HYDROcodone/ACETAMINOPHEN) PO PRN ×2 (18:00)
[2020-07-27 18:17] LABS: RSV AMPLIFICATION NEGATIVE (NEGATIVE)
[2020-07-27] MEDS ORDERED: VIAL MATE ADAPTER XX ONE (18:22)
--- NOTE | 2020-07-27 18:33 | HPEPDOC ---
General Date of Admission Jul 27, 2020 at 17:28 Date of Service: Jul 27, 2020 Chief Complaint The patient is a 40-year-old male admitted with a reason for visit of Inadequate Pain Control and Rheumatoid arthritis flare Source: Patient History of Present Illness Mr. 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 He was recently started on Campath (alemtuzumab), and his oncologist/program architect, Dr. Shine, has been titrated his medication upwards. His last dose was on 07/22/2020 at an increased dose. Since then, he has been feeling worse, feeling "beat up", and in severe pain. He was supposed to go again for a second dose but missed. it. He is generally scooter bound, but the pain was so severe, he was not able to get up. His pain are from the elbow down and from the thigh down. It is a sharp and shooting pain that radiates from proximal to distal. He feels that he has associated worsening stiffness as well. Work up in the ED, demonstrated left lower lobe pneumonia. Patient was being admitted for severe intractable pain and left lower lobe pneumonia. When I reached out to Oncology, Dr. Shine, he felt that this was not related to Campath. His hemoglobin and WBC were acceptable. He was concerned about the left lower lobe pneumonia. He is on prednisone (15mg per day), chemotherapy (Campath), and immunosuppressive drug (hydroxychloroquine) and was concerned for PCP pneumonia. Patient only reports occasional dyspnea, but denies cough or fever. He recommended I touch base with pulmonary, Dr. Sorto. Dr. Sorto looked at the imaging. Patient does not have pneumonia, but as atelectasis. In addition, PCP pneumonia would be multifocal. Pulmonary did not recommend antibiotics. Patient over did not clinically appear to have a pneumonia. The inflammatory markers are elevated, ESR >140 and CRP 7.4. Patient will be admitted for severe intractable pain secondary to rheumatoid flare. Home Medications Scheduled Alendronate Sodium (Alendronate Sodium) 70 Mg Tablet, 70 MG PO QWEEK, (Reported) WEDNESDAYS Bupropion Hcl (Bupropion Xl) 150 Mg Tab.er.24h, 1 TAB DAILY, (Reported) Cyanocobalamin (Vitamin B-12) (Vitamin B-12) 1,000 Mcg Tablet, 1,000 MCG PO QHS, (Reported) Hydroxychloroquine Sulfate (Hydroxychloroquine Sulfate) 200 Mg Tablet, 1 BID, (Reported) Omeprazole (Omeprazole) 20 Mg Capsule.dr, 20 MG PO BID, (Reported) Prednisone (Prednisone) 5 Mg Tablet, 5 MG PO QAM, (Reported) 15MG TOTAL DAILY Prednisone (Prednisone) 10 Mg Tablet, 10 MG PO QHS, (Reported) 15MG TOTAL DAILY Sulfamethoxazole/Trimethoprim (Sulfamethoxazole-Tmp Ds Tablet) 1 Each Tablet, 1 TAB 3XWEEKLY, (Reported) Scheduled PRN Acetaminophen (Tylenol Arthritis) 650 Mg Tablet.er, 650 MG PO Q8H PRN for PAIN, (Reported) Baclofen (Baclofen) 10 Mg Tablet, 10 MG PO QHS PRN for SPASMS, (Reported) Gabapentin (Gabapentin) 600 Mg Tablet, 600 MG PO TID PRN for PAIN, (Reported) Ondansetron HCl (Ondansetron HCl) 8 Mg Tablet, 8 MG PO Q6H PRN for NAUSEA OR VOM ITING Tramadol HCl (Tramadol HCl) 50 Mg Tablet, 50 MG PO BID PRN for PAIN, (Reported) Allergies Coded Allergies: No Known Allergies (Unverified , 07/11/18) Past Medical History Medical History 1. Rheumatoid arthritis long-term followed by Perez Dos Santos MD, [facility] 2. 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 Left hip replacement 2006 2. Right hand fracture Family History Father has history of Cerebral infarction Social History * Smoker: Denies Alcohol: Denies Drugs: marijuana A-FIB/CHADSVASC A-FIB History Current/History of A-Fib/PAF?: No Review of Systems Constitutional: Denies: Chills, Fever Eyes: Denies: Vision change ENT: Denies: Sore Throat Skin: Denies: Rash Pulmonary: Denies: Dyspnea, Cough Cardiovascular: Denies: Chest Pain Gastrointestinal: Denies: Abdominal Pain Genitourinary: Denies: Dysuria Hematologic: Denies: Bruising Musculoskeletal: Reports: Hand Pain, Leg Pain, Joint Pain Neurological: Reports: Numbness (right hand) Psych: Reports: Anxiety Physical Examination General Exam: Positive: Alert, Cooperative, Mild Distress Eye Exam: Positive: EOMI; Negative: Sclera icteric ENT Exam: Positive: Atraumatic Chest Exam: Positive: Clear to auscultation Heart Exam: Positive: Tachycardic, Regular Rhythm Abdomen Exam: Positive: Normal bowel sounds, Soft; Negative: Tenderness Extremity Exam: Negative: Edema Neuro Exam: Positive: Normal Speech Psych Exam: Positive: Anxiety Vital Signs Vital Signs Date Time Temp Pulse Resp B/P (MAP) Pulse Ox O2 Delivery O2 Flow Rate FiO2 07/27/20 16:38 18 Room Air 07/27/20 14:34 07/27/20 14:12 98.6 104 99 Laboratory Data Labs 24H Laboratory Tests 2 07/27/20 14:54: Immature Granulocyte % (Auto) 1.2, Neutrophils (%) (Auto) 71.7H, Lymphocytes (%) (Auto) 10.4L, Monocytes (%) (Auto) 15.5H, Eosinophils (%) (Auto) 0.6, Basophils (%) (Auto) 0.6, Neutrophils # (Auto) 3.7, Lymphocytes # (Auto) 0.5L, Monocytes # (Auto) 0.8, Eosinophils # (Auto) 0.0, Basophils # (Auto) 0.0, Nucleated Red Blood Cells % (auto) 0.0, Erythrocyte Sedimentation Rate > 140H, Anion Gap 6L, Glomerular Filtration Rate > 60.0, Calcium Level 9.6, Total Creatine Kinase 30L, Creatine Kinase MB < 1.0, Creatine Kinase MB Relative Index 3.33, Troponin I < 0.02, C-Reactive Protein, Quantitative 7.40H 07/27/20 17:11: CBC/BMP Laboratory Tests 07/27/20 14:54 Microbiology Microbiology 07/27/20 Blood Culture, Received Pending 07/27/20 Blood Culture, Received Pending Assessment/Plan Mr. 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 It is unlikely that he has left lower lobe pneumonia. He does not have symptoms of pneumonia, no fever, and no leukocytosis. He will continue his Bactrim at PCP prophylaxis. He will be given Solumedrol and [place] for the pain. Plan / VTE VTE Prophylaxis Ordered?: Yes Plan Plan 1. Intractable pain -Control rheumatoid flare with solumedrol -Control pain with [place] -Can escalate if not sufficient -Continue chronic pain control meds 2. Rheumatoid flare -ESR >140 and CRP 7.4 -IV solumedrol -Continue hydroxychloroquine 3. Immunosuppressed -On Campath, hydroxychloroquine, and high doses of steroids -Continue Bactrim for PCP prophylaxis 4. Atelectasis -Not pneumonia -Secondary to splinting from pain -IS 5. 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 Shine outpatient 6. DVT ppx -Lovenox KASEY BURCH DO Jul 27, 2020 18:33
[2020-07-27] MEDS ORDERED: BACLOFEN 10 MG TAB PO PRN (18:45)
[2020-07-27] MEDS ORDERED: BACTRIM 160MG/800MG DS TAB PO SCH (18:45)
[2020-07-27] MEDS ORDERED: GABAPENTIN 300 MG CAP PO PRN (18:45)
[2020-07-27] MEDS ORDERED: ONDANSETRON 4MG/2ML VIAL IV PRN (18:45)
[2020-07-27] MEDS ORDERED: ACETAMINOPHEN TAB 650MG DOSE (2X325MG) PO PRN (18:45)
[2020-07-27] MEDS ORDERED: traMADol 50 MG TAB PO PRN (18:45)
[2020-07-27] MEDS: methylPREDNISolone 125MG 2ML VIAL IV SCH (19:53)
[2020-07-27 21:44] VITALS: BP 126/62
[2020-07-27] MEDS: OMEPRAZOLE 20 MG CAP PO SCH (22:05)
[2020-07-27] MEDS: HYDROXYCHLOROQUINE 200 MG TAB PO SCH (22:33)
[2020-07-28] MEDS ORDERED: RAMELTEON 8 MG TAB (ROZEREM) PO PRN (00:15)
[2020-07-28] MEDS: methylPREDNISolone 125MG 2ML VIAL IV SCH ×2 (03:03→09:17)
[2020-07-28 06:10] VITALS: BP 116/79
[2020-07-28 08:14] LABS: HEMATOCRIT 24.2 % (42.0-52.0); HEMOGLOBIN 7.8 g/dl (13.5-17.5); MEAN CORPUSCULAR HEMOGLOBIN 30.6 pg (27.0-33.0); MEAN CORPUSCULAR HGB CONC 32.2 g/dl (32.0-36.5); MEAN CORPUSCULAR VOLUME 94.9 fl (80.0-96.0); PLATELET COUNT, AUTOMATED 413 10^3/uL (150-450); RED BLOOD COUNT 2.55 10^6/uL (4.30-6.10); WHITE BLOOD COUNT 2.9 10^3/uL (4.0-10.0)
[2020-07-28 08:41] LABS: ERYTHROCYTE SEDIMENTATION RATE 125 mm/hr (0-15)
[2020-07-28 08:42] LABS: BLOOD UREA NITROGEN 11 MG/DL (7-18); CALCIUM LEVEL 9.2 MG/DL (8.5-10.1); CARBON DIOXIDE LEVEL 29 MEQ/L (21-32); CHLORIDE LEVEL 101 MEQ/L (98-107); CREATININE FOR GFR 0.57 MG/DL (0.70-1.30); GLOMERULAR FILTRATION RATE > 60.0 (>60); GLUCOSE, FASTING 135 MG/DL (70-100); POTASSIUM SERUM 4.4 MEQ/L (3.5-5.1); SODIUM LEVEL 137 MEQ/L (136-145)
[2020-07-28] MEDS ORDERED: ENOXAPARIN 40MG/0.4ML SYRINGE (J1650 PER 10MG) SC SCH (09:00)
[2020-07-28] MEDS ORDERED: buPROPion **XL** TABLET 150MG (WELLBUTRIN XL) PO SCH (09:00)
[2020-07-28] MEDS: OMEPRAZOLE 20 MG CAP PO SCH (09:16)
[2020-07-28] MEDS: HYDROXYCHLOROQUINE 200 MG TAB PO SCH (09:16)
[2020-07-28] MEDS ORDERED: PRED10TA2 PO ×3 (09:43→09:55)
--- NOTE | 2020-07-28 11:46 | ECGEPIP ---
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
--- NOTE | 2020-07-28 18:59 | DS.PDOC ---
Discharge Summary General Date of Admission Jul 27, 2020 at 17:28 Date of Discharge Jul 28, 2020 Discharge Summary PROCEDURES PERFORMED DURING STAY: None ADMITTING DIAGNOSES: 1. Intractable pain 2. Rheumatoid arthritis flare 3. Immunosuppressed 4. Atelectasis 5. 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 Intractable pain 2. Rheumatoid arthritis flare 3. Immunosuppressed 4. Atelectasis 5. 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 He was recently started on Campath (alemtuzumab), and his oncologist/nutrition faculty member, Dr. Shine, has been titrated his medication upwards. His last dose was on 07/22/2020 at an increased dose. Since then, he has been feeling worse, feeling "beat up", and in severe pain. He was supposed to go again for a second dose but missed. it. He is generally scooter bound, but the pain was so severe, he was not able to get up. His pain are from the elbow down and from the thigh down. It is a sharp and shooting pain that radiates from proximal to distal. He feels that he has associated worsening stiffness as well. Work up in the ED, demonstrated left lower lobe pneumonia. Patient was being admitted for severe intractable pain and left lower lobe pneumonia. When I reached out to Oncology, Dr. Shine, he felt that this was not related to Campath. His hemoglobin and WBC were acceptable. He was concerned about the left lower lobe pneumonia. He is on prednisone (15mg per day), chemotherapy (Campath), and immunosuppressive drug (hydroxychloroquine) and was concerned for PCP pneumonia. Patient only reports occasional dyspnea, but denies cough or fever. He recommended I touch base with pulmonary, Dr. Sorto. Dr. Sorto looked at the imaging. Patient does not have pneumonia, but as atelectasis. In addition, PCP pneumonia would be multifocal. Pulmonary did not recommend antibiotics. Patient over did not clinically appear to have a pneumonia. The inflammatory markers are elevated, ESR >140 and CRP 7.4. Patient will be admitted for severe intractable pain secondary to rheumatoid flare. HOSPITAL COURSE: Patient responded quickly to the IV solumedrol. He recovered faster than expected. The following morning, he was able to move his joints better and pain was better controlled. He felt ready for home. I discussed a high prednisone taper for him. He is going to be on prednisone 60mg BID for 3 days, taper by 10mg every 3 days till completion. Then, he will resume his regular prednisone dose of 5mg in the morning and 10mg in the evening. Patient was discharged home today. DISCHARGE MEDICATIONS: Please see below. ALLERGIES: Please see below. PHYSICAL EXAMINATION ON DISCHARGE: VITAL SIGNS: Please see below. GENERAL: Comfortable, in no apparent distress. HEENT: Head normocephalic/atraumatic, EOMI, sclera clear. NECK: Supple RESPIRATORY: Lungs clear to auscultation bilaterally, no rales, wheeze or rhonchi. CARDIOVASCULAR: Regular rate and rhythm. ABDOMEN: Soft, nontender, no guarding or rebound tenderness. Normal bowel sounds. MUSCLE SKELETAL: Swelling in his DIP and PIP bilaterally NEUROLOGICAL: CN 312 grossly intact PSYCHOLOGICAL: Normal mood and affect LABORATORY DATA: Please see below. IMAGING: CT angio chest -No pulmonary embolus -Discussed CT chest with pulmonology. There is atelectasis from splinting. What was described as pneumonia is actually atelectasis. PROGNOSIS: Good ACTIVITY: As tolerated. DIET: As tolerated DISCHARGE PLAN: Home DISPOSITION: 01 Home, Self-Care. DISCHARGE INSTRUCTIONS: 1. Follow up with your PCP within 1 week 2. Follow up with your tube trailer filler as soon as possible 3. Take steroid taper. When completed steroid taper, continue your prednisone dose of 5mg in the morning and 10mg in the evening DISCHARGE CONDITION: Stable. Total time spent on discharge planning, discharge summary, and medication reconciliation: 50 minutes Vital Signs/I&Os Vital Signs Date Time Temp Pulse Resp B/P (MAP) Pulse Ox O2 Delivery O2 Flow Rate FiO2 07/28/20 06:10 96.7 74 20 116/79 (91) 97 Room Air I&O- Last 24 Hours up to 6 AM 07/28/20 06:00 Intake Total 650 ml Output Total 0 ml Balance 650 ml Laboratory Data Labs 24H Laboratory Tests 2 07/28/20 07:58: Nucleated Red Blood Cells % (auto) 0.0, Erythrocyte Sedimentation Rate 125H, Anion Gap 7L, Glomerular Filtration Rate > 60.0, Calcium Level 9.2 CBC/BMP Laboratory Tests 07/28/20 07:58 Microbiology Microbiology 07/27/20 Blood Culture - Preliminary, Resulted No growth after 24 hours . All specim... 07/27/20 Blood Culture - Preliminary, Resulted No growth after 24 hours . All specim... Discharge Medications Scheduled Alendronate Sodium (Alendronate Sodium) 70 Mg Tablet, 70 MG PO QWEEK, (Reported) WEDNESDAYS Bupropion Hcl (Bupropion Xl) 150 Mg Tab.er.24h, 150 MG PO DAILY, (Reported) Cyanocobalamin (Vitamin B-12) (Vitamin B-12) 1,000 Mcg Tablet, 1,000 MCG PO QHS, (Reported) Hydroxychloroquine Sulfate (Hydroxychloroquine Sulfate) 200 Mg Tablet, 200 MG PO BID, (Reported) Omeprazole (Omeprazole) 20 Mg Capsule.dr, 20 MG PO BID, (Reported) Prednisone (Prednisone) 5 Mg Tablet, 5 MG PO QAM, (Reported) 15MG TOTAL DAILY Prednisone (Prednisone) 10 Mg Tablet, 10 MG PO QHS, (Reported) 15MG TOTAL DAILY Prednisone (Prednisone) 10 Mg Tablet, 10 MG PO TAPER Take 6tabs twice a day for 3days,then 5tabs twice a day for 3days, then fabi nue removing one tab every 3days till completion Sulfamethoxazole/Trimethoprim (Sulfamethoxazole-Tmp Ds Tablet) 1 Each Tablet, 1 TAB PO 3XW, (Reported) MON, WED, FRI Scheduled PRN Acetaminophen (Tylenol Arthritis) 650 Mg Tablet.er, 650 MG PO Q8H PRN for PAIN, (Reported) Baclofen (Baclofen) 10 Mg Tablet, 10 MG PO QHS PRN for SPASMS, (Reported) Gabapentin (Gabapentin) 600 Mg Tablet, 600 MG PO TID PRN for PAIN, (Reported) Ondansetron HCl (Ondansetron HCl) 8 Mg Tablet, 8 MG PO Q6H PRN for NAUSEA OR VOMITING Tramadol HCl (Tramadol HCl) 50 Mg Tablet, 50 MG PO BID PRN for PAIN, (Reported) Allergies Coded Allergies: No Known Allergies (Unverified , 07/11/18) KASEY BURCH DO Jul 28, 2020 18:59
[2020-07-28] MEDS ORDERED: CYANOCOBALAMIN 500 MCG TAB PO SCH (21:00)
== END 2020-07-28 10:41 | disposition home or self-care (01) | DRG 546 ==
LOC: M ED 14:10 → M ED INP 17:28 → ENRESERV 18:37 → M MS5PR 21:28
PROVIDERS: ADMIT Internal Medicine; ATTEND Internal Medicine
DX: M06.9 Rheumatoid arthritis, unspecified (principal); C91.Z0 Other lymphoid leukemia not having achieved remission; J98.11 Atelectasis; R52 Pain, unspecified; Z79.52 Long term (current) use of systemic steroids; Z79.899 Other long term (current) drug therapy; Z96.642 Presence of left artificial hip joint; Z87.81 Personal history of (healed) traumatic fracture

== ENCOUNTER 2020-11-12 03:04 | Emergency (ER) | payer MEDICARE, MEDICAID ==
[~2020-11-12] VITALS: Ht 180.3 cm; Wt 82.0 kg
[~2020-11-12 03:04] MED LIST changes: +BACTDSTA PO; -DOXY100C PO; +DOXY100C3 PO; +NYST50SS PO; +POTA20TA6 PO; -SULF1TAB93 PO; +VALA1TAB5 PO
[2020-11-12 04:17] LABS: BASO % 0.6 % (0.0-1.0); EOS # 0.2 10^3/uL (0.0-0.5); HEMATOCRIT 45.9 % (42.0-52.0); HEMOGLOBIN 15.4 g/dl (13.5-17.5); LYMPH # 0.2 10^3/uL (1.5-5.0); LYMPH % 4.4 % (24.0-44.0); MEAN CORPUSCULAR HEMOGLOBIN 32.3 pg (27.0-33.0); MEAN CORPUSCULAR HGB CONC 33.6 g/dl (32.0-36.5); MEAN CORPUSCULAR VOLUME 96.2 fl (80.0-96.0); MONO # 0.8 10^3/uL (0.0-0.8); MONO % 14.3 % (2.0-8.0); NEUTROPHILS # 4.2 10^3/uL (1.5-8.5); PLATELET COUNT, AUTOMATED 262 10^3/uL (150-450); RED BLOOD COUNT 4.77 10^6/uL (4.30-6.10); WHITE BLOOD COUNT 5.4 10^3/uL (4.0-10.0)
[2020-11-12 04:38] LABS: ALBUMIN 4.1 GM/DL (3.2-5.2); ALT/SGPT 30 U/L (12-78); BILIRUBIN,DIRECT 0.1 MG/DL (0.0-0.2); BILIRUBIN,TOTAL 0.6 MG/DL (0.2-1.0); CK-MB VALUE MASS < 1.0 NG/ML (<3.6); CPK CREATINE PHOSPHOKINASE 66 U/L (39-308); LIPASE 104 U/L (73-393); MB/CK RELATIVE INDEX 1.52 (< OR =4); TOTAL PROTEIN 7.4 GM/DL (6.4-8.2); TROPONIN I < 0.02 NG/ML (< 0.10)
[2020-11-12] MEDS ORDERED: NS 1,000 ML IV ONE (06:20)
[2020-11-12] MEDS ORDERED: METOCLOPRAMIDE INJ 10MG/2ML VIAL (J2765 PER 1) IV ONE (06:30)
[2020-11-12 07:30] VITALS: BP 135/83
[2020-11-12] MEDS ORDERED: REGL10TA6 PO (07:54)
--- NOTE | 2020-11-13 06:59 | ECGEPIP ---
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
== END 2020-11-12 08:26 | disposition home or self-care (01) ==
LOC: M ED 03:04
DX: F12.188 Cannabis abuse with other cannabis-induced disorder (principal); D64.9 Anemia, unspecified; K21.9 Gastro-esophageal reflux disease without esophagitis; Z79.899 Other long term (current) drug therapy
CPT/HCPCS: 80047; 80076; 82550; 82553; 83690; 84484; 85025; 93005; 93041; 96361; 96374; 99285; J2765

== ENCOUNTER 2020-12-03 09:05 | Emergency (ER) | payer MEDICARE, MEDICAID ==
[~2020-12-03] VITALS: Ht 180.3 cm; Wt 81.4 kg
[2020-12-03 13:20] LABS: BASO % 0.6 % (0.0-1.0); EOS # 0.1 10^3/uL (0.0-0.5); EOS % 3.7 % (0.0-3.0); HEMOGLOBIN 12.4 g/dl (13.5-17.5); LYMPH # 0.2 10^3/uL (1.5-5.0); LYMPH % 5.1 % (24.0-44.0); MEAN CORPUSCULAR HEMOGLOBIN 30.8 pg (27.0-33.0); MEAN CORPUSCULAR HGB CONC 32.6 g/dl (32.0-36.5); MEAN CORPUSCULAR VOLUME 94.3 fl (80.0-96.0); MONO # 0.4 10^3/uL (0.0-0.8); MONO % 11.9 % (2.0-8.0); NEUTROPHILS # 2.8 10^3/uL (1.5-8.5); NEUTROPHILS % 78.4 % (36.0-66.0); PLATELET COUNT, AUTOMATED 153 10^3/uL (150-450); RED BLOOD COUNT 4.03 10^6/uL (4.30-6.10); WHITE BLOOD COUNT 3.5 10^3/uL (4.0-10.0)
[2020-12-03 13:43] LABS: ALBUMIN 3.2 GM/DL (3.2-5.2); ALT/SGPT 24 U/L (12-78); BILIRUBIN,DIRECT < 0.1 MG/DL (0.0-0.2); BILIRUBIN,TOTAL 0.2 MG/DL (0.2-1.0); CPK CREATINE PHOSPHOKINASE 29 U/L (39-308); LIPASE 211 U/L (73-393)
[2020-12-03 13:50] LABS: RSV AMPLIFICATION NEGATIVE (NEGATIVE)
[2020-12-03 17:41] VITALS: BP 140/87
== END 2020-12-03 17:43 | disposition home or self-care (01) ==
LOC: M ED 09:05
DX: U07.1 COVID-19 (principal); D72.819 Decreased white blood cell count, unspecified; C91.50 Adult T-cell lymphoma/leukemia (HTLV-1-associated) not having achieved remission; Z79.52 Long term (current) use of systemic steroids; Z79.899 Other long term (current) drug therapy; Z96.642 Presence of left artificial hip joint
CPT/HCPCS: 36415; 80047; 80076; 82550; 83690; 85025; 87631; 99284; M0243

== ENCOUNTER 2020-12-03 18:17 | Outpatient (CLI) | payer MEDICARE, MEDICAID ==
[~2020-12-03] VITALS: Ht 180.3 cm; Wt 78.3 kg
--- NOTE | 2020-12-03 16:10 | CR.PDOC ---
General Date of Consultation: Dec 03, 2020 Attending Physician: TWIN MESSINA DO Consultation REASON FOR CONSULTATION/CHIEF COMPLAINT: Outpatient monoclonal antibodies. HISTORY OF PRESENT ILLNESS: Patient is a 40-year-old male who presented to the emergency department today with a 8 to 10-day history of upper respiratory infection. Patient noticed over the past few days has become more stiff. Patient does have a history of rheumatoid arthritis and leukemia treated with immunosuppressant therapy. Patient tested positive for COVID-19 today. Emergency room consulted hospitalist for possible monoclonal antibody infection. Patient states he initially started getting sick about 8 to 10 days ago and then became acutely worse over the weekend with increased stiffness and fatigue. Patient was given information about antibody therapy and is agreed to take these. ALLERGIES: Please see below. HOME MEDICATIONS: Please see below. PAST MEDICAL HISTORY: 1. Rheumatoid arthritis long-term maintained on prednisone status post treatment with multiple DMARDs. 2. 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 3. Leukemia PAST SURGICAL HISTORY: 1. Left hip replacement 2006 2. Left ankle fusion FAMILY HISTORY: Father has history of cerebral infarction SOCIAL HISTORY: Patient denies tobacco or alcohol use. Patient used to smoke marijuana but no longer does REVIEW OF SYSTEMS: General: Patient denies fevers HEENT: Patient denies headaches Cardiovascular: Patient denies chest pain Respiratory: Patient denies shortness of breath, cough GI: Patient denies abdominal pain, nausea, vomiting, diarrhea : Patient denies increased frequency or pain with urination Extremities: Patient denies swelling or pain in extremities Neurological: Patient denies numbness or tingling in legs Skin: Patient denies any new rashes or lesions. Hematologic: Patient denies any easy bruising. Lymphatic: Patient denies any lumps lumps or bumps in neck, axilla, or groin PHYSICAL EXAMINATION: VITAL SIGNS: Please see below. General: Alert and oriented male patient who was sitting up on the bed when I walked in the room. Patient not appear to be in acute distress HEENT: Normocephalic, atraumatic, moist mucous membranes. Neck: No lymphadenopathy or thyromegaly Cardiac: Regular rate and rhythm, no murmurs, normal S1, normal S2 Pulm: Clear to auscultation bilaterally. No wheezes, rhonchi, rales Abd: Nondistended, nontender to palpation, normal bowel sounds Ext: No edema bilateral lower extremities LABORATORY DATA: Please see below. ASSESSMENT/PLAN: 40-year-old male with a 8 to 10-day history of COVID-19 symptoms test positive today who would be admitted to outpatient unit for monoclonal antibodies 1. COVID-19 with high risk for development of hospitalization. Patient has a history of leukemia as well as rheumatoid arthritis on long-term immun osuppressive therapy which puts him at high risk for development of worsening of COVID-19 symptoms which qualifies him for monoclonal antibodies. Risks and benefits of monoclonal antibodies were discussed with the patient. Patient also received these in writing. Patient has consented to getting monoclonal antibody treatment. I did discuss that this is authorized under the emergency use authorization act and has not been officially approved for treatment by the FDA. Patient is aware of this and still would like to proceed. Patient will be brought up to the Covid unit for monoclonal antibody infusion. I did also discussed that the patient should receive his COVID-19 vaccination within 90 days of his positive test. I discussed the risk and benefits of the COVID-19 vaccination with the patient as well. 2. Elevated blood pressures without the diagnosis of hypertension. Patient should follow up with his primary care provider in order to continue to monitor his blood pressure. If blood pressure remains elevated, patient can be started on antihypertensive therapy. Allergies Coded Allergies: No Known Allergies (Unverified , 07/11/18) Home Medications Scheduled Alendronate Sodium (Alendronate Sodium) 70 Mg Tablet, 70 MG PO QWEEK, (Reported) WEDNESDAYS Bupropion Hcl (Bupropion Xl) 150 Mg Tab.er.24h, 150 MG PO DAILY, (Reported) Cyanocobalamin (Vitamin B-12) (Vitamin B-12) 1,000 Mcg Tablet, 1,000 MCG PO QHS, (Reported) Hydroxychloroquine Sulfate (Hydroxychloroquine Sulfate) 200 Mg Tablet, 200 MG PO BID, (Reported) Omeprazole (Omeprazole) 20 Mg Capsule.dr, 20 MG PO BID, (Reported) Prednisone (Prednisone) 10 Mg Tablet, 7 MG PO QHS, (Reported) 15MG TOTAL DAILY Scheduled PRN Acetaminophen (Tylenol Arthritis) 650 Mg Tablet.er, 650 MG PO Q8H PRN for PAIN, (Reported) Baclofen (Baclofen) 10 Mg Tablet, 10 MG PO QHS PRN for SPASMS, (Reported) Gabapentin (Gabapentin) 600 Mg Tablet, 600 MG PO TID PRN for PAIN, (Reported) Metoclopramide HCl (Reglan) 10 Mg Tablet, 10 MG PO Q6H PRN for NAUSEA, #20 Ondansetron HCl (Ondansetron HCl) 8 Mg Tablet, 8 MG PO Q6H PRN for NAUSEA OR VOMITING, #30 Tramadol HCl (Tramadol HCl) 50 Mg Tablet, 50 MG PO BID PRN for PAIN, (Reported) TWIN MESSINA DO Dec 03, 2020 16:10
[2020-12-03 17:51] VITALS: BP 165/92
[~2020-12-03 18:17] MED LIST changes: +ALBUTEROL 90 MCG/ACT 8GM HFA INHALER INH PRN; +ALBUTEROL SULFATE 2.5 MG/0.5 ML INH NEB SOLN INH PRN; +EPINEPHrine INJ 1 MG/ML 1ML AMP IM PRN; +NS 1,000 ML IV SCH; +diphenhydrAMINE 50MG/ML VIAL (J1200) IV PRN; +methylPREDNISolone 125MG 2ML VIAL IV PRN
[2020-12-03 18:42] VITALS: BP 137/89
[2020-12-03 18:55] VITALS: BP 132/84
[2020-12-03] MEDS ORDERED: CASIRIVIMAB/IMDEVIMAB 1,200 MG in NS 250 ML IV ONE (19:00)
[2020-12-03 19:21] VITALS: BP 149/77
[2020-12-03 20:16] VITALS: BP 124/75
[2020-12-03 21:16] VITALS: BP 134/77
== END 2020-12-03 21:20 | disposition home or self-care (01) ==
LOC: M 4MAIN 18:17 → M OPCLI4PR 18:17
PROVIDERS: ATTEND Family Medicine
DX: U07.1 COVID-19 (principal)

== ENCOUNTER → 2020-12-21 | Outpatient (CLI) | payer MEDICARE, MEDICAID ==
[~2020-12-21] MED LIST changes: -ALBUTEROL 90 MCG/ACT 8GM HFA INHALER INH PRN; -ALBUTEROL SULFATE 2.5 MG/0.5 ML INH NEB SOLN INH PRN; -EPINEPHrine INJ 1 MG/ML 1ML AMP IM PRN; -NS 1,000 ML IV SCH; -diphenhydrAMINE 50MG/ML VIAL (J1200) IV PRN; -methylPREDNISolone 125MG 2ML VIAL IV PRN
--- NOTE | 2020-12-21 18:03 | REPVR ---
PROCEDURE INFORMATION: Exam: MR Cervical Spine Without Contrast Exam date and time: 12/21/2020 4:04 PM Age: 40 years old Clinical indication: Radicular pain (radiculopathy); Cervical region TECHNIQUE: Imaging protocol: Multiplanar magnetic resonance images of the cervical spine without contrast. COMPARISON: PT PET/CT Skull/mid thigh 10/12/2018 1:03 PM FINDINGS: Dextroscoliosis of the mid to upper cervical spine. Cervical vertebral body heights are intact. Straightening of the cervical lordosis. The dens is intact. No abnormal marrow signal. No cord compression, expansion, or abnormal cord signal. Visualized structures of the posterior fossa are unremarkable. Soft tissues are unremarkable. C2-C3: Small central disc protrusion without significant canal or foraminal narrowing. C3-C4: Combination of posterior disc protrusion, uncovertebral spurring, and facet hypertrophy cause severe left and moderate to severe right foraminal narrowing. Suspected compression of the exiting left C4 nerve root. Moderate canal narrowing with effacement of the thecal sac. C4-C5: Posterior disc protrusion and uncovertebral spurring cause mild canal narrowing with mild left and moderate right foraminal narrowing. C5-C6: Uncovertebral spurring and facet hypertrophy cause moderate right and mild left foraminal narrowing. No significant canal narrowing. C6-C7: Posterior disc protrusion and uncovertebral spurring cause mild canal narrowing with mild left and [id number] right foraminal narrowing. C7-T1: Uncovertebral spurring causes mild left and moderate right foraminal narrowing. No significant canal narrowing. IMPRESSION: Multilevel advanced spondylotic changes of the cervical spine, most pronounced at C3-C4, as detailed above. Electronically signed by: Terrance Enrique On 12/21/2020 18:02:46 PM
== END ==
LOC: M RAD 15:39
PROVIDERS: ATTEND Pain Medicine Interventional Pain Medicine
DX: M54.12 Radiculopathy, cervical region (principal)

== ENCOUNTER → 2021-02-03 | Outpatient (CLI) | payer MEDICARE, MEDICAID ==
--- NOTE | 2021-02-03 15:08 | REP ---
INDICATION: SQ NODULES. COMPARISON: None. TECHNIQUE: Real-time sonographic evaluation of right thigh soft tissues. FINDINGS: At the site of the palpable lump there is a subtle isoechoic subcutaneous mass which measures 2.5 x 0.6 x 4.0 cm. There is a central 5 mm more hypoechoic nodular structure which may represent a complex cystic component. Incidental note is made of a lymph node in the right inguinal region 9 x 18 x 7 mm. IMPRESSION: Solid mass at the site of the palpable lump. Recommend MRI of the right thigh soft tissues with and without contrast for further evaluation. <Electronically signed by Ag Gong > 02/03/21 [id number]
== END ==
LOC: M RAD 12:38
PROVIDERS: ATTEND Internal Medicine Medical Oncology
DX: R22.41 Localized swelling, mass and lump, right lower limb (principal)

== ENCOUNTER → 2021-04-17 | Outpatient (CLI) | payer MEDICARE, MEDICAID ==
[~2021-04-17] MED LIST changes: +ACTE162I SC; +ONDA-84 PO; -ONDA8TAB10 PO; +POTA-151 PO; -POTA20TA6 PO; -PROC10TA4 PO; +PROC10TA5 PO
== END ==
LOC: M WHC 10:42
DX: Z79.899 Other long term (current) drug therapy (principal); M81.0 Age-related osteoporosis without current pathological fracture

== ENCOUNTER 2021-05-08 22:53 | Emergency (ER) | payer MEDICARE, MEDICAID ==
[~2021-05-08] VITALS: Ht 175.3 cm; Wt 82.3 kg
[~2021-05-08 22:53] MED LIST changes: +OMEP-173 PO; -OMEP-218 PO
[2021-05-08 23:03] VITALS: BP 123/82
[2021-05-08] MEDS ORDERED: predniSONE 50 MG TAB PO ONE (23:30)
[2021-05-08] MEDS ORDERED: diphenhydrAMINE 50MG CAP PO ONE (23:30)
[2021-05-08] MEDS ORDERED: PRED10TA2 PO (23:50)
[2021-05-08] MEDS ORDERED: BENA25CA4 PO (23:50)
== END 2021-05-09 00:27 | disposition home or self-care (01) ==
LOC: M ED 22:53
DX: L50.9 Urticaria, unspecified (principal)
CPT/HCPCS: 99283; J7512

== ENCOUNTER → 2021-05-13 | Outpatient (REF) | payer MEDICARE, MEDICAID ==
[~2021-05-13] MED LIST changes: +BENA25CA4 PO
== END ==
LOC: M LAB REF 12:18
PROVIDERS: ATTEND Podiatrist Foot & Ankle Surgery
DX: L03.116 Cellulitis of left lower limb (principal)

== ENCOUNTER → 2021-06-02 | Outpatient (CLI) | payer MEDICARE, MEDICAID ==
[2021-06-02 09:44] LABS: BASO % 0.3 % (0.0-1.0); EOS % 0.6 % (0.0-3.0); HEMATOCRIT 38.1 % (42.0-52.0); HEMOGLOBIN 12.3 g/dl (13.5-17.5); LYMPH % 14.8 % (24.0-44.0); MEAN CORPUSCULAR HEMOGLOBIN 30.8 pg (27.0-33.0); MEAN CORPUSCULAR HGB CONC 32.3 g/dl (32.0-36.5); MEAN CORPUSCULAR VOLUME 95.5 fl (80.0-96.0); MONO # 0.7 10^3/uL (0.0-0.8); MONO % 9.7 % (2.0-8.0); NEUTROPHILS # 5.1 10^3/uL (1.5-8.5); NEUTROPHILS % 73.9 % (36.0-66.0); PLATELET COUNT, AUTOMATED 191 10^3/uL (150-450); RED BLOOD COUNT 3.99 10^6/uL (4.30-6.10); WHITE BLOOD COUNT 6.9 10^3/uL (4.0-10.0)
[2021-06-02 09:45] LABS: APPEARANCE, URINE MANUAL CLEAR (CLEAR); COLOR, URINE MANUAL YELLOW (YELLOW)
[2021-06-02 09:47] LABS: BILIRUBIN, URINE MANUAL NEGATIVE (NEGATIVE); BLOOD URINE MANUAL NEGATIVE (NEGATIVE); GLUCOSE, URINE (UA) MANUAL NEGATIVE (NEGATIVE); KETONE, URINE MANUAL NEGATIVE (NEGATIVE); LEUKOCYTE ESTERASE, URINE MAN NEGATIVE (NEGATIVE); NITRITE, URINE MANUAL NEGATIVE (NEGATIVE); PROTEIN, URINE MANUAL 1+ mg/dL (NEGATIVE); UROBILINOGEN, URINE MANUAL NORMAL (NORMAL)
[2021-06-02 10:03] LABS: ALBUMIN 3.6 GM/DL (3.2-5.2); ALT/SGPT 68 U/L (12-78); BILIRUBIN,TOTAL 0.4 MG/DL (0.2-1.0); BLOOD UREA NITROGEN 12 MG/DL (7-18); C REACTIVE PROTEIN QUANTITATIV 1.52 MG/DL (0.00-0.30); CALCIUM LEVEL 8.7 MG/DL (8.5-10.1); CARBON DIOXIDE LEVEL 31 MEQ/L (21-32); CHLORIDE LEVEL 105 MEQ/L (98-107); COMPLEMENT C3 124 MG/DL (90-180); COMPLEMENT C4 32 MG/DL (10-40); CREATININE FOR GFR 0.63 MG/DL (0.70-1.30); GLOMERULAR FILTRATION RATE > 60.0 (>60); GLUCOSE, FASTING 129 MG/DL (70-100); POTASSIUM SERUM 3.8 MEQ/L (3.5-5.1); SODIUM LEVEL 139 MEQ/L (136-145); TOTAL PROTEIN 7.3 GM/DL (6.4-8.2)
[2021-06-02 10:06] LABS: RBC, URINE 0-1 /hpf (0-3); SQUAMOUS EPITHELIAL CELL URINE SMALL AMOUNT /hpf (SMALL AMT)
[2021-06-02 10:07] LABS: MUCUS, URINE SMALL AMOUNT (NEGATIVE)
[2021-06-02 10:09] LABS: ERYTHROCYTE SEDIMENTATION RATE 33 mm/hr (0-15)
[2021-06-02 10:26] LABS: TOTAL PROTEIN,RANDOM URINE 31.4 MG/DL (0.0-12.0)
[2021-06-03 12:11] LABS: ANTI DOUBLE STRAND-DNA AB 19 IU/mL (0-9); ANTINUCLEAR ANTIBODIES DIRECT Positive (Negative); RNP ANTIBODIES 0.2 AI (0.0-0.9); SJOGREN'S ANTI SS-A <0.2 AI (0.0-0.9); SJOGREN'S ANTI SS-B <0.2 AI (0.0-0.9); SMITH ANTIBODIES <0.2 AI (0.0-0.9)
== END ==
LOC: M LAB 08:44
PROVIDERS: ATTEND Internal Medicine Rheumatology
DX: M08.80 Other juvenile arthritis, unspecified site (principal)

== ENCOUNTER → 2021-06-16 | Outpatient (CLI) | payer MEDICARE, MEDICAID ==
[~2021-06-16] MED LIST changes: +CALC600T57 PO
[2021-06-16 16:32] LABS: BASO % 0.5 % (0.0-1.0); EOS % 0.5 % (0.0-3.0); HEMATOCRIT 37.8 % (42.0-52.0); HEMOGLOBIN 12.7 g/dl (13.5-17.5); LYMPH % 25.1 % (24.0-44.0); MEAN CORPUSCULAR HEMOGLOBIN 31.7 pg (27.0-33.0); MEAN CORPUSCULAR HGB CONC 33.6 g/dl (32.0-36.5); MEAN CORPUSCULAR VOLUME 94.3 fl (80.0-96.0); MONO # 0.6 10^3/uL (0.0-0.8); MONO % 13.3 % (2.0-8.0); NEUTROPHILS # 2.5 10^3/uL (1.5-8.5); NEUTROPHILS % 59.9 % (36.0-66.0); PLATELET COUNT, AUTOMATED 219 10^3/uL (150-450); RED BLOOD COUNT 4.01 10^6/uL (4.30-6.10); WHITE BLOOD COUNT 4.1 10^3/uL (4.0-10.0)
[2021-06-16 16:51] LABS: ALBUMIN 3.9 GM/DL (3.2-5.2); ALT/SGPT 68 U/L (12-78); BILIRUBIN,TOTAL 0.5 MG/DL (0.2-1.0); BLOOD UREA NITROGEN 9 MG/DL (7-18); C REACTIVE PROTEIN QUANTITATIV 1.42 MG/DL (0.00-0.30); CALCIUM LEVEL 8.9 MG/DL (8.5-10.1); CARBON DIOXIDE LEVEL 31 MEQ/L (21-32); CHLORIDE LEVEL 106 MEQ/L (98-107); COMPLEMENT C3 125 MG/DL (90-180); COMPLEMENT C4 37 MG/DL (10-40); CREATININE FOR GFR 0.69 MG/DL (0.70-1.30); GLOMERULAR FILTRATION RATE > 60.0 (>60); GLUCOSE, FASTING 120 MG/DL (70-100); POTASSIUM SERUM 3.9 MEQ/L (3.5-5.1); SODIUM LEVEL 139 MEQ/L (136-145); TOTAL PROTEIN 7.3 GM/DL (6.4-8.2)
[2021-06-16 17:00] LABS: HEPATITIS B SURFACE ANTIBODY NEGATIVE (POSITIVE)
[2021-06-16 17:02] LABS: ERYTHROCYTE SEDIMENTATION RATE 25 mm/hr (0-15)
[2021-06-16 17:10] LABS: HEPATITIS B SURFACE ANTIGEN NEGATIVE (NEGATIVE)
[2021-06-16 17:39] LABS: HEPATITIS C VIRUS ABY INDEX 0.3 INDEX (<0.8)
[2021-06-16 17:40] LABS: HEPATITIS B CORE ANTIBODY IGM NEGATIVE (NEGATIVE)
== END ==
LOC: M LAB 15:14
PROVIDERS: ATTEND Internal Medicine Rheumatology
DX: M08.80 Other juvenile arthritis, unspecified site (principal)

== ENCOUNTER → 2021-10-30 | Outpatient (CLI) | payer MEDICARE, MEDICAID ==
[~2021-10-30] MED LIST changes: -GLUCTAB6 PO; +GLUCTAB7 PO; +[UNRECOGNIZED DRUG - CODE]
== END ==
LOC: M RAD 12:38
PROVIDERS: ATTEND Nurse Practitioner Family
DX: Z01.818 Encounter for other preprocedural examination (principal)

== ENCOUNTER 2021-11-11 07:07 | Emergency (ER) | payer MEDICARE, MEDICAID ==
[~2021-11-11] VITALS: Ht 180.3 cm; Wt 191.0 kg
[2021-11-11] MEDS ORDERED: OXYC1TAB23 (07:24)
[2021-11-11] MEDS ORDERED: PRED5TA (07:24)
[2021-11-11 09:23] VITALS: BP 138/77
== END 2021-11-11 09:25 | disposition home or self-care (01) ==
LOC: M ED 07:07
DX: T81.89XA Other complications of procedures, not elsewhere classified, initial encounter (principal); M06.9 Rheumatoid arthritis, unspecified; Z79.899 Other long term (current) drug therapy

== ENCOUNTER 2021-12-02 09:30 | Outpatient (RCR) | payer MEDICARE, MEDICAID ==
[~2021-12-02 09:30] MED LIST changes: +ALEN70TA87 PO; -FOSA70TA PO; +OXYC1TAB23; +PRED5TA
== END 2021-12-03 ==
LOC: M PT 09:30
PROVIDERS: ATTEND Physician Assistant Surgical
DX: M19.022 Primary osteoarthritis, left elbow (principal)

== ENCOUNTER → 2022-03-11 | Outpatient (REF) | payer MEDICARE, MEDICAID ==
[~2022-03-11] MED LIST changes: -DOXY-350 PO; +DOXY-444 PO; +GALZ50CA PO; +VITA-158 PO
[2022-03-11 17:35] LABS: BASO % 0.4 % (0.0-1.0); EOS % 0.3 % (0.0-3.0); HEMOGLOBIN 11.5 g/dl (13.5-17.5); LYMPH # 2.7 10^3/uL (1.5-5.0); LYMPH % 39.8 % (24.0-44.0); MEAN CORPUSCULAR HEMOGLOBIN 33.1 pg (27.0-33.0); MEAN CORPUSCULAR HGB CONC 31.9 g/dl (32.0-36.5); MEAN CORPUSCULAR VOLUME 103.7 fl (80.0-96.0); MONO # 0.7 10^3/uL (0.0-0.8); MONO % 10.5 % (2.0-8.0); NEUTROPHILS # 3.3 10^3/uL (1.5-8.5); NEUTROPHILS % 48.7 % (36.0-66.0); PLATELET COUNT, AUTOMATED 246 10^3/uL (150-450); RED BLOOD COUNT 3.47 10^6/uL (4.30-6.10); WHITE BLOOD COUNT 6.8 10^3/uL (4.0-10.0)
[2022-03-11 17:56] LABS: BLOOD UREA NITROGEN 13 MG/DL (9-23); CALCIUM LEVEL 8.9 MG/DL (8.5-10.1); CARBON DIOXIDE LEVEL 28 MMOL/L (20-31); CHLORIDE LEVEL 102 MMOL/L (98-107); CREATININE FOR GFR 0.58 MG/DL (0.70-1.30); GLOMERULAR FILTRATION RATE > 60.0 (>60); GLUCOSE, FASTING 95 MG/DL (60-100); POTASSIUM SERUM 3.9 MMOL/L (3.5-5.1); SODIUM LEVEL 138 MMOL/L (136-145)
== END ==
LOC: M LAB REF 16:42
PROVIDERS: ATTEND Nurse Practitioner Family
DX: Z01.818 Encounter for other preprocedural examination (principal)

== ENCOUNTER → 2022-03-13 | Outpatient (CLI) | payer MEDICARE, MEDICAID | LOC: M RAD 13:54 | PROVIDERS: ATTEND Nurse Practitioner Family | DX: Z01.818 Encounter for other preprocedural examination (principal) ==

== ENCOUNTER 2022-05-17 15:35 | Emergency (ER) | payer MEDICARE, MEDICAID ==
[~2022-05-17] VITALS: Ht 180.3 cm; Wt 81.8 kg
[~2022-05-17 15:35] MED LIST changes: +NYST-38 PO; -NYST50SS PO
[2022-05-17 15:59] VITALS: BP 115/68
[2022-05-17] MEDS ORDERED: OXYC-517 (16:10)
[2022-05-17] MEDS ORDERED: COSE1INJ (16:10)
[2022-05-17] MEDS ORDERED: PERCOCET 5MG/325MG TAB PO ONE (18:00)
== END 2022-05-17 18:50 | disposition home or self-care (01) ==
LOC: M ED 15:35
DX: M25.461 Effusion, right knee (principal); S83.91XA Sprain of unspecified site of right knee, initial encounter; X50.0XXA Overexertion from strenuous movement or load, initial encounter; Y92.009 Unspecified place in unspecified non-institutional (private) residence as the place of occurrence of the external cause; Y93.89 Activity, other specified; Z79.899 Other long term (current) drug therapy

== ENCOUNTER → 2022-09-22 | Outpatient (REF) | payer MEDICARE, MEDICAID ==
[~2022-09-22] MED LIST changes: +COSE1INJ; -HYDR200T3 PO; +HYDR200T46 PO; +OXYC-517; +POTA-298 PO; -POTA1TAB14 PO
[2022-09-22 17:58] LABS: BASO % 0.6 % (0.0-1.0); EOS % 0.6 % (0.0-3.0); HEMATOCRIT 32.9 % (42.0-52.0); HEMOGLOBIN 10.5 g/dl (13.5-17.5); LYMPH % 58.5 % (24.0-44.0); MEAN CORPUSCULAR HEMOGLOBIN 33.7 pg (27.0-33.0); MEAN CORPUSCULAR HGB CONC 31.9 g/dl (32.0-36.5); MEAN CORPUSCULAR VOLUME 105.4 fl (80.0-96.0); MONO # 0.7 10^3/uL (0.0-0.8); MONO % 12.9 % (2.0-8.0); NEUTROPHILS # 1.4 10^3/uL (1.5-8.5); NEUTROPHILS % 26.6 % (36.0-66.0); PLATELET COUNT, AUTOMATED 264 10^3/uL (150-450); RED BLOOD COUNT 3.12 10^6/uL (4.30-6.10); WHITE BLOOD COUNT 5.1 10^3/uL (4.0-10.0)
== END ==
LOC: M LAB REF 17:13
PROVIDERS: ATTEND Nurse Practitioner Family
DX: R10.9 Unspecified abdominal pain (principal)

== ENCOUNTER → 2022-10-20 | Outpatient (REF) | payer MEDICARE, MEDICAID ==
[2022-10-20 18:40] LABS: BASO % 0.7 % (0.0-1.0); EOS % 0.7 % (0.0-3.0); HEMATOCRIT 31.6 % (42.0-52.0); LYMPH # 2.4 10^3/uL (1.5-5.0); LYMPH % 52.5 % (24.0-44.0); MEAN CORPUSCULAR HEMOGLOBIN 33.1 pg (27.0-33.0); MEAN CORPUSCULAR HGB CONC 31.6 g/dl (32.0-36.5); MEAN CORPUSCULAR VOLUME 104.6 fl (80.0-96.0); MONO # 0.6 10^3/uL (0.0-0.8); MONO % 14.1 % (2.0-8.0); NEUTROPHILS # 1.4 10^3/uL (1.5-8.5); NEUTROPHILS % 31.6 % (36.0-66.0); PLATELET COUNT, AUTOMATED 249 10^3/uL (150-450); RED BLOOD COUNT 3.02 10^6/uL (4.30-6.10); WHITE BLOOD COUNT 4.6 10^3/uL (4.0-10.0)
[2022-10-20 18:52] LABS: IRON (FE) 111 UG/DL (65-175)
[2022-10-20 18:55] LABS: VITAMIN B12 LEVEL 450 PG/ML (211-911)
== END ==
LOC: M LAB REF 17:10
PROVIDERS: ATTEND Family Medicine Addiction Medicine
DX: D64.9 Anemia, unspecified (principal)

== ENCOUNTER → 2022-12-03 | Outpatient (REF) | payer MEDICARE, MEDICAID ==
[2022-12-03 13:23] LABS: APPEARANCE, URINE CLEAR (CLEAR); BACTERIA, URINE AUTO NEGATIVE (NEGATIVE); BILIRUBIN, URINE AUTO NEGATIVE (NEGATIVE); BLOOD, URINE BLOOD NEGATIVE (NEGATIVE); COLOR, URINE YELLOW (YELLOW); GLUCOSE, URINE (UA) AUTO NEGATIVE (NEGATIVE); KETONE, URINE AUTO NEGATIVE (NEGATIVE); LEUKOCYTE ESTERASE, URINE AUTO NEGATIVE (NEGATIVE); MUCUS, URINE SMALL (NEGATIVE); NITRITE, URINE AUTO NEGATIVE (NEGATIVE); PROTEIN, URINE AUTO NEGATIVE (NEGATIVE); RBC, URINE AUTO 0 /HPF (0-3); SPECIFIC GRAVITY URINE AUTO 1.017 (1.002-1.035); SQUAMOUS EPITHELIAL CELL UR AU 0 /HPF (0-6); UROBILINOGEN, URINE AUTO 0.2 mg/dL (0.0-2.0); WBC, URINE AUTO 1 /HPF (0-3)
[2022-12-03 15:48] LABS: GC DNA AMPLIFICATION NEGATIVE (NEGATIVE)
== END ==
LOC: M LAB REF 12:19
PROVIDERS: ATTEND Nurse Practitioner Family
DX: N50.89 Other specified disorders of the male genital organs (principal)

== ENCOUNTER → 2022-12-17 | Outpatient (CLI) | payer MEDICARE, MEDICAID | LOC: M RAD 10:40 | PROVIDERS: ATTEND Nurse Practitioner Family | DX: N50.89 Other specified disorders of the male genital organs (principal) ==

== ENCOUNTER → 2023-05-05 | Outpatient (CLI) | payer MEDICARE, MEDICAID | LOC: M SOG 08:12 | PROVIDERS: ATTEND Physician Assistant | DX: M25.511 Pain in right shoulder (principal) ==

== ENCOUNTER → 2023-05-18 | Outpatient (REF) | payer MEDICARE, MEDICAID ==
[~2023-05-18] MED LIST changes: +PRED10PA PO
[2023-05-18 14:27] LABS: CHOLESTEROL RISK RATIO 3.04 (<5); HDL CHOLESTEROL 51.6 MG/DL (>40); LDL CHOLESTEROL 73.6 MG/DL (<100); NON-HDL-C 105.4 MG/DL; TOTAL 25(OH) VITAMIN D 16.5 NG/ML (20.0-100.0)
== END ==
LOC: M LAB REF 12:50
PROVIDERS: ATTEND Nurse Practitioner Family
DX: E55.9 Vitamin D deficiency, unspecified (principal); E78.00 Pure hypercholesterolemia, unspecified

== ENCOUNTER 2023-06-18 07:44 | Day surgery (SDC) | payer MEDICARE, MEDICAID ==
[~2023-06-18] VITALS: Ht 177.8 cm; Wt 79.2 kg
[~2023-06-18 07:44] MED LIST changes: -COSE1INJ; +COSE1INJ SC; +PRED5PAK PO
[2023-06-18] MEDS: NS 1,000 ML IV ONE (08:13)
[2023-06-18] MEDS ORDERED: propofoL 500 MG/50 ML VIAL As Ordered ONE (09:49)
[2023-06-18 10:20] VITALS: BP 118/60; O2SAT 97
== END 2023-06-18 10:26 | disposition home or self-care (01) ==
LOC: M OPP 07:44
PROVIDERS: ATTEND Internal Medicine Gastroenterology
DX: Z86.010 Personal history of colon polyps (principal); K63.5 Polyp of colon; K64.8 Other hemorrhoids; K64.4 Residual hemorrhoidal skin tags; Z79.1 Long term (current) use of non-steroidal anti-inflammatories (NSAID); Z79.52 Long term (current) use of systemic steroids; Z79.620 Long term (current) use of immunosuppressive biologic; Z79.83 Long term (current) use of bisphosphonates; Z79.891 Long term (current) use of opiate analgesic; Z79.899 Other long term (current) drug therapy

== ENCOUNTER → 2023-07-01 | Outpatient (REF) | payer MEDICARE, MEDICAID ==
[2023-07-01 17:39] LABS: BASO % 0.6 % (0.0-1.0); EOS # 0.1 10^3/uL (0.0-0.5); EOS % 0.9 % (0.0-3.0); HEMATOCRIT 33.4 % (42.0-52.0); HEMOGLOBIN 10.8 g/dl (13.5-17.5); LYMPH # 3.3 10^3/uL (1.5-5.0); LYMPH % 51.1 % (24.0-44.0); MEAN CORPUSCULAR HEMOGLOBIN 33.4 pg (27.0-33.0); MEAN CORPUSCULAR HGB CONC 32.3 g/dl (32.0-36.5); MEAN CORPUSCULAR VOLUME 103.4 fl (80.0-96.0); MONO # 0.7 10^3/uL (0.0-0.8); MONO % 10.9 % (2.0-8.0); NEUTROPHILS # 2.3 10^3/uL (1.5-8.5); NEUTROPHILS % 35.7 % (36.0-66.0); PLATELET COUNT, AUTOMATED 261 10^3/uL (150-450); RED BLOOD COUNT 3.23 10^6/uL (4.30-6.10); WHITE BLOOD COUNT 6.4 10^3/uL (4.0-10.0)
[2023-07-01 18:08] LABS: BLOOD UREA NITROGEN 8 MG/DL (9-23); CALCIUM LEVEL 8.7 MG/DL (8.5-10.1); CARBON DIOXIDE LEVEL 32 MMOL/L (20-31); CHLORIDE LEVEL 102 MMOL/L (98-107); CREATININE FOR GFR 0.55 MG/DL (0.70-1.30); GLOMERULAR FILTRATION RATE > 60.0 (>60); GLUCOSE, FASTING 107 MG/DL (60-100); POTASSIUM SERUM 3.9 MMOL/L (3.5-5.1); SODIUM LEVEL 137 MMOL/L (136-145)
== END ==
LOC: M LAB REF 16:32
PROVIDERS: ATTEND Nurse Practitioner Family
DX: Z01.818 Encounter for other preprocedural examination (principal)

== ENCOUNTER 2023-07-14 05:59 | Day surgery (SDC) | payer MEDICARE, MEDICAID ==
[~2023-07-14] VITALS: Ht 177.8 cm; Wt 80.6 kg
[2023-07-14] MEDS: LR 1,000 ML IV SCH (06:50)
[2023-07-14] MEDS ORDERED: dexmedeTOMIDine (4MCG/ML)200MCG/50ML BTL (PRECEDEX) As Ordered ONE (07:01)
[2023-07-14] MEDS ORDERED: propofoL 200 MG/20 ML VIAL As Ordered ONE (07:01)
[2023-07-14] MEDS ORDERED: LIDOCAINE 2% 100MG/5ML SDV (FOR ANES.) As Ordered ONE (07:01)
[2023-07-14] MEDS ORDERED: ONDANSETRON 4MG 2ML VIAL As Ordered ONE (07:01)
[2023-07-14] MEDS ORDERED: MIDAZOLAM INJ 2MG/2ML VIAL As Ordered ONE (07:01)
[2023-07-14] MEDS ORDERED: fentaNYL 100 MCG/2 ML INJECTION As Ordered ONE (07:02)
[2023-07-14] MEDS ORDERED: ROCURONIUM BROMIDE 50MG/5ML VIAL As Ordered ONE (07:09)
[2023-07-14] MEDS: ceFAZolin SOD 2 GM in IV 1 EA IV ONE (07:35)
[2023-07-14] MEDS: LIDOCAINE 1% MDV 20ML VIAL As Ordered ONE (07:41)
[2023-07-14] MEDS ORDERED: KETOROLAC 60MG 2ML VIAL As Ordered ONE (07:56)
[2023-07-14] MEDS ORDERED: ACETAMINOPHEN 1000MG 100ML IV BAG As Ordered ONE (08:17)
[2023-07-14] MEDS ORDERED: PHENYLephrine 500MCG 5ML (100MCG/ML) SYRINGE As Ordered ONE (08:52)
[2023-07-14] MEDS ORDERED: ePHEDrine SULFATE 25 MG/5 ML(5MG/ML) SYRINGE As Ordered ONE (08:52)
[2023-07-14] MEDS ORDERED: ONDANSETRON 4MG 2ML VIAL IV PRN (09:30)
[2023-07-14] MEDS ORDERED: LR 1,000 ML IV SCH (09:30)
[2023-07-14] MEDS: oxyCODONE 5MG TAB PO PRN (10:29)
[2023-07-14 11:15] VITALS: BP 115/72; TEMP 97.4; O2SAT 96
== END 2023-07-14 11:15 | disposition home or self-care (01) ==
LOC: M SDC 05:59
PROVIDERS: ATTEND Podiatrist Foot & Ankle Surgery
DX: M20.42 Other hammer toe(s) (acquired), left foot (principal); M20.5X2 Other deformities of toe(s) (acquired), left foot; Z85.6 Personal history of leukemia; Z79.899 Other long term (current) drug therapy
CPT/HCPCS: 28285; 28288; 28308; 76000; C1713; J0131; J0665; J0690; J1100; J1885; J2250; J2371; J2405; J3010

== ENCOUNTER → 2023-09-06 | Outpatient (REF) | payer MEDICARE, MEDICAID ==
[~2023-09-06] MED LIST changes: +DOXY-440 PO; -DOXY-444 PO
[2023-09-06 18:51] LABS: BASO % 0.6 % (0.0-1.0); EOS % 0.3 % (0.0-3.0); HEMATOCRIT 32.7 % (42.0-52.0); HEMOGLOBIN 10.9 g/dl (13.5-17.5); LYMPH # 3.1 10^3/uL (1.5-5.0); MEAN CORPUSCULAR HEMOGLOBIN 34.2 pg (27.0-33.0); MEAN CORPUSCULAR HGB CONC 33.3 g/dl (32.0-36.5); MEAN CORPUSCULAR VOLUME 102.5 fl (80.0-96.0); MONO # 0.7 10^3/uL (0.0-0.8); NEUTROPHILS # 2.5 10^3/uL (1.5-8.5); NEUTROPHILS % 39.6 % (36.0-66.0); PLATELET COUNT, AUTOMATED 255 10^3/uL (150-450); RED BLOOD COUNT 3.19 10^6/uL (4.30-6.10); WHITE BLOOD COUNT 6.4 10^3/uL (4.0-10.0)
[2023-09-06 18:52] LABS: BLOOD UREA NITROGEN 9 MG/DL (9-23); CALCIUM LEVEL 8.7 MG/DL (8.5-10.1); CARBON DIOXIDE LEVEL 29 MMOL/L (20-31); CHLORIDE LEVEL 102 MMOL/L (98-107); CREATININE FOR GFR 0.58 MG/DL (0.70-1.30); GLOMERULAR FILTRATION RATE > 60.0 (>60); GLUCOSE, FASTING 98 MG/DL (60-100); POTASSIUM SERUM 4.6 MMOL/L (3.5-5.1); SODIUM LEVEL 136 MMOL/L (136-145)
== END ==
LOC: M LAB REF 16:28
PROVIDERS: ATTEND Nurse Practitioner Family
DX: Z01.818 Encounter for other preprocedural examination (principal)

== ENCOUNTER 2023-10-19 10:30 | Outpatient (RCR) | payer MEDICARE, MEDICAID | END 2023-11-03 | LOC: M PT 10:30 | PROVIDERS: ATTEND Nurse Practitioner Family | DX: Z74.09 Other reduced mobility (principal) ==

== ENCOUNTER 2023-11-15 08:57 | Emergency (ER) | payer MEDICARE, MEDICAID ==
[~2023-11-15] VITALS: Ht 177.8 cm; Wt 75.3 kg
[2023-11-15 14:56] VITALS: BP 123/75; TEMP 96.7; O2SAT 98
== END 2023-11-15 15:27 | disposition home or self-care (01) ==
LOC: M ED 08:57
DX: K40.90 Unilateral inguinal hernia, without obstruction or gangrene, not specified as recurrent (principal); K21.9 Gastro-esophageal reflux disease without esophagitis; Z79.899 Other long term (current) drug therapy; Z79.52 Long term (current) use of systemic steroids

== ENCOUNTER 2023-11-21 10:25 | Emergency (ER) | payer MEDICARE, MEDICAID ==
[~2023-11-21] VITALS: Ht 180.3 cm; Wt 77.3 kg
[2023-11-21 14:18] VITALS: BP 123/82; TEMP 98; O2SAT 98
== END 2023-11-21 14:19 | disposition home or self-care (01) ==
LOC: M ED 10:25
DX: M05.562 Rheumatoid polyneuropathy with rheumatoid arthritis of left knee (principal); M25.462 Effusion, left knee; Z79.1 Long term (current) use of non-steroidal anti-inflammatories (NSAID); Z79.52 Long term (current) use of systemic steroids; Z79.899 Other long term (current) drug therapy

== ENCOUNTER → 2023-12-09 | Outpatient (CLI) | payer MEDICARE, MEDICAID ==
[~2023-12-09] MED LIST changes: +DOCU100C16; +DULO1CAP5; +GABA-1490 PO; -GABA600T4 PO
== END ==
LOC: M PLARAD 09:29
PROVIDERS: ATTEND Orthopaedic Surgery
DX: M25.462 Effusion, left knee (principal)

== ENCOUNTER 2023-12-20 11:21 | Emergency (ER) | payer MEDICARE, MEDICAID ==
[~2023-12-20] VITALS: Ht 177.8 cm; Wt 75.5 kg
[~2023-12-20 11:21] MED LIST changes: -DOCU100C16; -DULO1CAP5
[2023-12-20 11:22] VITALS: BP 103/74; TEMP 98.1; O2SAT 97
[2023-12-20] MEDS ORDERED: DULO1CAP5 (12:22)
[2023-12-20] MEDS ORDERED: DOCU100C16 (12:22)
[2023-12-20 14:20] LABS: BASO % 0.3 % (0.0-1.0); EOS % 0.6 % (0.0-3.0); HEMATOCRIT 28.5 % (42.0-52.0); HEMOGLOBIN 9.2 g/dl (13.5-17.5); LYMPH % 44.8 % (24.0-44.0); MEAN CORPUSCULAR HEMOGLOBIN 32.9 pg (27.0-33.0); MEAN CORPUSCULAR HGB CONC 32.3 g/dl (32.0-36.5); MEAN CORPUSCULAR VOLUME 101.8 fl (80.0-96.0); MONO # 0.6 10^3/uL (0.0-0.8); MONO % 9.2 % (2.0-8.0); NEUTROPHILS % 44.6 % (36.0-66.0); PLATELET COUNT, AUTOMATED 214 10^3/uL (150-450); WHITE BLOOD COUNT 6.7 10^3/uL (4.0-10.0)
[2023-12-20 14:35] LABS: ERYTHROCYTE SEDIMENTATION RATE 30 mm/hr (0-15)
[2023-12-20 14:52] LABS: BLOOD UREA NITROGEN 12 MG/DL (9-23); CALCIUM LEVEL 7.7 MG/DL (8.5-10.1); CARBON DIOXIDE LEVEL 29 MMOL/L (20-31); CHLORIDE LEVEL 103 MMOL/L (98-107); CREATININE FOR GFR 0.63 MG/DL (0.70-1.30); GLOMERULAR FILTRATION RATE > 60.0 (>60); GLUCOSE, FASTING 106 MG/DL (60-100); POTASSIUM SERUM 4.1 MMOL/L (3.5-5.1); SODIUM LEVEL 136 MMOL/L (136-145)
[2023-12-20] MEDS ORDERED: DOXY100C3 PO (15:30)
[2023-12-20] MEDS: DOXYCYCLINE HYCLATE 100MG TABLET PO ONE (15:33)
== END 2023-12-20 15:42 | disposition home or self-care (01) ==
LOC: M ED 11:21
DX: L03.115 Cellulitis of right lower limb (principal); M06.9 Rheumatoid arthritis, unspecified; Z79.52 Long term (current) use of systemic steroids; Z79.899 Other long term (current) drug therapy; Z79.1 Long term (current) use of non-steroidal anti-inflammatories (NSAID)

== ENCOUNTER 2023-12-31 11:01 | Emergency (ER) | payer MEDICARE, MEDICAID ==
[~2023-12-31] VITALS: Ht 180.3 cm; Wt 74.1 kg
[~2023-12-31 11:01] MED LIST changes: +CALC600C3 PO; +DOCU100C16 PO; +DULO1CAP5
[2023-12-31 11:02] VITALS: BP 132/69; O2SAT 99
[2023-12-31 11:18] VITALS: TEMP 97.9
== END 2023-12-31 13:10 | disposition home or self-care (01) ==
LOC: M ED 11:01
DX: U07.1 COVID-19 (principal); C91.50 Adult T-cell lymphoma/leukemia (HTLV-1-associated) not having achieved remission; Z79.1 Long term (current) use of non-steroidal anti-inflammatories (NSAID); Z79.52 Long term (current) use of systemic steroids

== ENCOUNTER 2024-01-06 06:05 | Day surgery (SDC) | payer MEDICARE, MEDICAID ==
[~2024-01-06] VITALS: Ht 180.3 cm; Wt 73.9 kg
[2024-01-06] MEDS ORDERED: LR 1,000 ML IV SCH (06:20)
[2024-01-06] MEDS ORDERED: propofoL 200 MG/20 ML VIAL As Ordered ONE (07:13)
[2024-01-06] MEDS ORDERED: LIDOCAINE 2% 100MG/5ML SDV (FOR ANES.) As Ordered ONE (07:13)
[2024-01-06] MEDS ORDERED: ROCURONIUM BROMIDE 50MG/5ML VIAL As Ordered ONE (07:13)
[2024-01-06] MEDS ORDERED: ONDANSETRON 4MG 2ML VIAL As Ordered ONE (07:13)
[2024-01-06] MEDS ORDERED: fentaNYL 100 MCG/2 ML INJECTION As Ordered ONE (07:13)
[2024-01-06] MEDS ORDERED: MIDAZOLAM INJ 2MG/2ML VIAL As Ordered ONE (07:14)
[2024-01-06] MEDS ORDERED: SUGAMMADEX SODIUM 500 MG/5 ML VIAL (BRIDION) As Ordered ONE (07:14)
[2024-01-06] MEDS ORDERED: KETOROLAC 60MG 2ML VIAL As Ordered ONE (07:14)
[2024-01-06] MEDS: ceFAZolin SOD 2 GM in IV 1 EA IV ONE (07:55)
[2024-01-06] MEDS: fentaNYL 100 MCG/2 ML INJECTION IV PRN (08:55)
[2024-01-06] MEDS: ONDANSETRON 4MG 2ML VIAL IV PRN (09:16)
[2024-01-06] MEDS: KETOROLAC 30 MG/ML 1ML VIAL IV ONE (09:45)
[2024-01-06] MEDS: ACETAMINOPHEN 500 MG TAB PO ONE (09:46)
[2024-01-06] MEDS: oxyCODONE 5MG TAB PO PRN (09:48)
[2024-01-06 11:32] VITALS: BP 106/67; TEMP 97; O2SAT 97
== END 2024-01-06 11:32 | disposition home or self-care (01) ==
LOC: M SDC 06:05
PROVIDERS: ATTEND Surgery
DX: K42.0 Umbilical hernia with obstruction, without gangrene (principal); K40.90 Unilateral inguinal hernia, without obstruction or gangrene, not specified as recurrent; K66.8 Other specified disorders of peritoneum; R09.02 Hypoxemia; Z53.8 Procedure and treatment not carried out for other reasons
CPT/HCPCS: 49592; J0665; J0690; J1100; J1885; J2250; J2405; J3010; S2900

== ENCOUNTER → 2024-01-31 | Outpatient (REF) | payer MEDICARE, MEDICAID ==
[2024-01-31 17:46] LABS: BASO % 0.6 % (0.0-1.0); EOS % 0.2 % (0.0-3.0); HEMATOCRIT 31.5 % (42.0-52.0); LYMPH # 2.1 10^3/uL (1.5-5.0); LYMPH % 42.9 % (24.0-44.0); MEAN CORPUSCULAR HEMOGLOBIN 33.4 pg (27.0-33.0); MEAN CORPUSCULAR HGB CONC 31.7 g/dl (32.0-36.5); MEAN CORPUSCULAR VOLUME 105.4 fl (80.0-96.0); MONO # 0.7 10^3/uL (0.0-0.8); MONO % 13.9 % (2.0-8.0); NEUTROPHILS % 41.4 % (36.0-66.0); PLATELET COUNT, AUTOMATED 253 10^3/uL (150-450); RED BLOOD COUNT 2.99 10^6/uL (4.30-6.10); WHITE BLOOD COUNT 4.8 10^3/uL (4.0-10.0)
[2024-01-31 18:19] LABS: BLOOD UREA NITROGEN 10 MG/DL (9-23); CALCIUM LEVEL 8.7 MG/DL (8.5-10.1); CARBON DIOXIDE LEVEL 29 MMOL/L (20-31); CHLORIDE LEVEL 108 MMOL/L (98-107); CREATININE FOR GFR 0.51 MG/DL (0.70-1.30); GLOMERULAR FILTRATION RATE > 60.0 (>60); GLUCOSE, FASTING 117 MG/DL (60-100); SODIUM LEVEL 140 MMOL/L (136-145)
== END ==
LOC: M LAB REF 17:15
PROVIDERS: ATTEND Nurse Practitioner Family
DX: Z01.818 Encounter for other preprocedural examination (principal)

== ENCOUNTER 2024-02-25 12:50 | Emergency (ER) | payer MEDICARE, MEDICAID ==
[~2024-02-25] VITALS: Ht 180.3 cm; Wt 77.3 kg
[2024-02-25 12:53] VITALS: BP 122/69; TEMP 97.1; O2SAT 95
[2024-02-25] MEDS ORDERED: BENZ200C70 PO (14:42)
[2024-02-25] MEDS: BENZONATATE 100MG CAPSULE PO ONE (14:42)
== END 2024-02-25 14:52 | disposition home or self-care (01) ==
LOC: M ED 12:50
DX: J40 Bronchitis, not specified as acute or chronic (principal); C91.50 Adult T-cell lymphoma/leukemia (HTLV-1-associated) not having achieved remission; M06.9 Rheumatoid arthritis, unspecified; Z11.52 Encounter for screening for COVID-19; Z79.899 Other long term (current) drug therapy

== ENCOUNTER 2024-06-21 13:14 | Emergency (ER) | payer MEDICARE, MEDICAID ==
[~2024-06-21] VITALS: Ht 180.3 cm; Wt 81.5 kg
[~2024-06-21 13:14] MED LIST changes: +BENZ200C70 PO; +CALC-364 PO; +DULO1CAP5 PO
[2024-06-21] MEDS ORDERED: FLON27.5 NARES (14:47)
[2024-06-21 14:48] VITALS: BP 141/93; TEMP 97.8; O2SAT 97
== END 2024-06-21 14:54 | disposition home or self-care (01) ==
LOC: M ED 13:14
DX: R05.9 Cough, unspecified (principal); B34.2 Coronavirus infection, unspecified; M06.9 Rheumatoid arthritis, unspecified; Z85.6 Personal history of leukemia; Z79.1 Long term (current) use of non-steroidal anti-inflammatories (NSAID); Z79.52 Long term (current) use of systemic steroids; Z79.899 Other long term (current) drug therapy

== ENCOUNTER 2024-06-25 14:58 | Emergency (ER) | payer MEDICARE, MEDICAID ==
[~2024-06-25] VITALS: Ht 180.3 cm; Wt 81.1 kg
[~2024-06-25 14:58] MED LIST changes: +FLON27.5 NARES
[2024-06-25 15:56] VITALS: BP 123/83; TEMP 97.2; O2SAT 97
== END 2024-06-25 15:59 | disposition home or self-care (01) ==
LOC: M ED 14:58
DX: J06.9 Acute upper respiratory infection, unspecified (principal); M06.9 Rheumatoid arthritis, unspecified; C95.90 Leukemia, unspecified not having achieved remission; Z79.1 Long term (current) use of non-steroidal anti-inflammatories (NSAID); Z79.51 Long term (current) use of inhaled steroids; Z79.899 Other long term (current) drug therapy

== ENCOUNTER 2025-03-07 11:41 | Emergency (ER) | payer MEDICARE, MEDICAID ==
[~2025-03-07] VITALS: Ht 180.3 cm; Wt 80.3 kg
[~2025-03-07 11:41] MED LIST changes: +ACYC-438 PO; -ACYC1TAB PO; -BACTDSTA PO; -FOLI0.4T5 PO; +FOLI400T2 PO; -GALZ50CA PO; -IBUP-1022 PO; +SULF-8 PO; +ZINC50CA4 PO
[2025-03-07 14:13] VITALS: BP 131/69; TEMP 98; O2SAT 97
== END 2025-03-07 14:15 | disposition home or self-care (01) ==
LOC: M ED 11:41
DX: R09.81 Nasal congestion (principal); B97.4 Respiratory syncytial virus as the cause of diseases classified elsewhere; Z79.1 Long term (current) use of non-steroidal anti-inflammatories (NSAID); Z79.899 Other long term (current) drug therapy; Z79.52 Long term (current) use of systemic steroids